=== PATIENT | female | born 1950 | race Caucasian/White ===

== ENCOUNTER → 2017-11-07 09:34 | Outpatient (CLI) | payer MEDICARE, OTHER, SELFPAY ==
--- NOTE | 2017-11-07 10:00 | ECHOD_ITS ---
Reason For Study: MURMUR Procedure This was a 2D Doppler, Color Flow transthoracic echocardiogram. The exam was of adequate technical quality. Exam performed in department. Left Ventricle Normal LV size. Mild concentric left ventricular hypertrophy. Apical false tendon noted. Left ventricular systolic function is normal. The estimated ejection fraction is 55 %. Right Ventricle Normal RV size. Normal systolic function. Atria The left atrium is moderately enlarged. Normal right atrium. No doppler evidence for ASD. Mitral Valve There is no mitral annular calcification. Mild diffuse mitral valve thickening. Mild focal mitral valve calcification of the anterior leaflet. The mitral valve chordae are thickened and/or calcified. Moderate (2+) eccentric mitral valve insufficiency. Tricuspid Valve Normal tricuspid valve. Mild tricuspid valve insufficiency. Right ventricular systolic pressure estimated to be 35 mmHg. Aortic Valve Trisinus/trileaflet aortic valve. Normal aortic valve. Pulmonic Valve The pulmonic valve is not well visualized. Mild (1+) pulmonic valve insufficiency. Great Vessels Normal sized aortic root. Pericardium/Pleural No pericardial effusion. MMode/2D Measurements & Calculations LVIDd: 5.0 cm IVSd: 1.3 cm Ao root diam: 2.8 cm LVIDs: 3.4 cm LVPWd: 1.3 cm LA dimension: 4.9 cm RVDd: 3.1 cm FS: 31.7 % LAV(MOD-bp): 98.5 ml LA A4 area: 24.8 cm2 RA A4 area: 16.9 cm2 LAV(MOD-bp) Indexed: 61.8 ml/m2 LAV(MOD-sp2): 102.8 ml LAV(MOD-sp4): 94.2 ml Doppler Measurements & Calculations MV E max ariel: 149.9 cm/sec Lat Peak E' Ariel: 9.6 cm/sec Med Peak E' Ariel: 6.6 cm/sec MV A max ariel: 105.4 cm/sec E/E' lat: 15.6 E/E' med: 22.8 MV E/A: 1.4 Ao V2 max: 178.4 cm/sec LV V1 max: 87.8 cm/sec MR max ariel: 571.6 cm/sec Ao max P.7 mmHg LV V1 max P.1 mmHg MR max P.7 mmHg Ao V2 mean: 129.6 cm/sec LV V1 mean P.7 mmHg MR mean ariel: 434.9 cm/sec Ao mean P.2 mmHg LV V1 mean: 61.9 cm/sec MR mean P.4 mmHg Ao V2 VTI: 40.1 cm LV V1 VTI: 19.4 cm MR VTI: 197.8 cm PA V2 max: 113.8 cm/sec TR max ariel: 280.5 cm/sec TR max P.6 mmHg Interpretation Summary Left ventricular systolic function is normal. The estimated ejection fraction is 55 %. Mild concentric left ventricular hypertrophy. Apical false tendon noted. The left atrium is moderately enlarged. Mild diffuse mitral valve thickening. Mild focal mitral valve calcification of the anterior leaflet. The mitral valve chordae are thickened and/or calcified. Moderate (2+) eccentric mitral valve insufficiency. Mild tricuspid valve insufficiency. Mild (1+) pulmonic valve insufficiency. Right ventricular systolic pressure estimated to be 35 mmHg. Ordering Physician: Sami Hinojosa Referring Physician: Sandra Lopez Performed By: Greer Sheridan RDCS, RVT
== END ==
PROVIDERS: Family Provider Internal Medicine; PCP Internal Medicine; Visit Provider Internal Medicine Cardiovascular Disease
DX: I51.7 Cardiomegaly (principal); I37.1 Nonrheumatic pulmonary valve insufficiency
CPT/HCPCS: 93306

== ENCOUNTER → 2017-11-15 09:38 | Outpatient (CLI) | payer MEDICARE, OTHER, SELFPAY ==
[2017-11-15 10:52] LABS: Hematocrit 32.2 % (37-47); Hemoglobin 10.8 g/dl (12.0-15.0); Mean Corp Hgb Conc 33.5 g/gl (32-36); Mean Corpuscular Hgb 30.9 pg (27.0-32.0); Mean Corpuscular Volume 92.3 fL (81-99); Mean Platelet Vol. 10.3 fl (6.2-12.0); Platelet Count 228 K/mm3 (150-450); RBC Distribution Width CV 13.4 % (11.6-14.6); Red Blood Count 3.49 M/mm3 (4.2-5.4); White Blood Count 5.8 K/mm3 (4.4-11.0)
[2017-11-15 10:53] LABS: Scan Indicated on CBC? Y/N NO
[2017-11-15 11:20] LABS: Protein, Urine (Random) 388.7 mg/dL (<11.9); Protein:Creat Ratio 6160 mg/g CRE (0-200)
[2017-11-15 11:25] LABS: Albumin, Serum 2.5 g/dL (3.2-5.0); BUN 26 mg/dL (7-18); BUN/Creat Ratio 26.3 RATIO (10-20); Calcium,Total 9.1 mg/dL (8.5-10.1); Chloride 101 mmol/L (98-107); Cholesterol 191 mg/dL (200); Creatinine, Serum 0.99 mg/dL (0.55-1.02); EST Glomerular Filtration Rate 60 mL/min (>60); Est Glom Filt Rate - Afr Amer 72 mL/min (>60); Glucose 90 mg/dL (70-110); High Density Lipoprotein 73 mg/dL; Phosphorus 4.2 mg/dL (2.5-4.9); Potassium 4.9 mmol/L (3.5-5.1); Sodium Level 137 mmol/L (136-145); T4 Free Direct 1.77 ng/dL (0.76-1.46); Thyroid Stim Hormone (TSH) 0.25 uIU/mL (0.358-3.74); Triglycerides 76 mg/dL; Very Low Density Lipoprotein 15 mg/dL (5-40)
== END ==
PROVIDERS: Family Provider Internal Medicine; PCP Internal Medicine
DX: E03.9 Hypothyroidism, unspecified (principal); I10 Essential (primary) hypertension; R80.9 Proteinuria, unspecified; R31.9 Hematuria, unspecified
CPT/HCPCS: 36415; 80061; 80069; 82570; 84156; 84439; 84443; 85027

== ENCOUNTER → 2018-01-15 10:09 | Outpatient (CLI) | payer MEDICARE, OTHER, SELFPAY ==
[2018-01-15 10:20] LABS: Mucous, Urine 0 SEEN /hpf (<or=2+); White Blood Cells 0 SEEN /hpf (0-5)
[2018-01-15 11:03] LABS: Color, Urine Straw (Yellow); Glucose, Dipstick Normal (Normal); Ketone-Dipstick Negative (Negative); Leukocyte Esterase-Dipstick Negative /ul (Negative); Nitrite-Dipstick Negative (Negative); Occult Blood-Urine 150 /ul (Negative); Protein-Dipstick 100 mg/dl (Negative); Urine Bilirubin Dipstick Negative (Negative); Urine Clarity Clear (Clear); Urine Urobilinogen Normal (Normal)
[2018-01-15 11:07] LABS: Hematocrit 31.6 % (37-47); Hemoglobin 10.7 g/dl (12.0-15.0); Mean Corp Hgb Conc 33.9 g/gl (32-36); Mean Corpuscular Hgb 31.5 pg (27.0-32.0); Mean Corpuscular Volume 92.9 fL (81-99); Mean Platelet Vol. 10.5 fl (6.2-12.0); Platelet Count 229 K/mm3 (150-450); RBC Distribution Width CV 13.2 % (11.6-14.6); RBC Distribution Width SD 43.1 fl (35.1-43.9); White Blood Count 4.6 K/mm3 (4.4-11.0)
[2018-01-15 11:13] LABS: Scan Indicated on CBC? Y/N NO
[2018-01-15 11:15] LABS: Protein, Urine (Random) 181.5 mg/dL (<11.9); Protein:Creat Ratio 5386 mg/g CRE (0-200)
[2018-01-15 11:37] LABS: Anion Gap 5 (5-15); BUN 39 mg/dL (7-18); BUN/Creat Ratio 33.6 RATIO (10-20); Calcium,Total 9.2 mg/dL (8.5-10.1); Chloride 103 mmol/L (98-107); Creatinine, Serum 1.16 mg/dL (0.55-1.02); EST Glomerular Filtration Rate 50 mL/min (>60); Est Glom Filt Rate - Afr Amer 60 mL/min (>60); Glucose 121 mg/dL (74-106); Potassium 4.4 mmol/L (3.5-5.1); Sodium Level 137 mmol/L (136-145)
[2018-01-15 11:41] LABS: Bacteria RARE /hpf (None Seen); Red Blood Cells-Urine 5-10 SEEN /hpf (0-5); Squamous Epithelial Cells - UA 0-5 SEEN /hpf (5-10)
== END ==
PROVIDERS: Family Provider Internal Medicine; PCP Internal Medicine
DX: I12.9 Hypertensive chronic kidney disease with stage 1 through stage 4 chronic kidney disease, or unspecified chronic kidney disease (principal); N18.1 Chronic kidney disease, stage 1; R80.9 Proteinuria, unspecified
CPT/HCPCS: 36415; 80048; 81001; 82570; 84156; 85027

== ENCOUNTER → 2018-02-10 08:54 | Outpatient (CLI) | payer MEDICARE, OTHER, SELFPAY ==
[2018-02-10 09:04] VITALS: BP 139/70; PULSE 69; RESP 16; TEMP 36.4; O2SAT 97; BMI 26.8
== END ==
PROVIDERS: Family Provider Internal Medicine; PCP Internal Medicine
DX: I12.9 Hypertensive chronic kidney disease with stage 1 through stage 4 chronic kidney disease, or unspecified chronic kidney disease (principal); N18.3 Chronic kidney disease, stage 3 (moderate); R80.9 Proteinuria, unspecified
CPT/HCPCS: 96365; A4216; J2930

== ENCOUNTER → 2018-02-11 08:58 | Outpatient (CLI) | payer MEDICARE, OTHER, SELFPAY ==
[2018-02-11 09:05] VITALS: BP 118/79; PULSE 83; RESP 18; TEMP 36.2; O2SAT 96; BMI 26.6
== END ==
PROVIDERS: Family Provider Internal Medicine; PCP Internal Medicine
DX: N18.3 Chronic kidney disease, stage 3 (moderate) (principal); I12.9 Hypertensive chronic kidney disease with stage 1 through stage 4 chronic kidney disease, or unspecified chronic kidney disease; R80.9 Proteinuria, unspecified
CPT/HCPCS: 96365; J7050; A4216; J2930

== ENCOUNTER → 2018-02-12 08:37 | Outpatient (CLI) | payer MEDICARE, OTHER, SELFPAY ==
[2018-02-12 08:57] VITALS: BP 143/73; PULSE 71; RESP 16; TEMP 36.9; O2SAT 99; BMI 26.6
== END ==
PROVIDERS: Family Provider Internal Medicine; PCP Internal Medicine
DX: I12.9 Hypertensive chronic kidney disease with stage 1 through stage 4 chronic kidney disease, or unspecified chronic kidney disease (principal); N18.3 Chronic kidney disease, stage 3 (moderate); R80.9 Proteinuria, unspecified
CPT/HCPCS: 96365; J7050; A4216; J2930

== ENCOUNTER → 2018-02-21 08:20 | Outpatient (CLI) | payer MEDICARE, OTHER, SELFPAY ==
[2018-02-21 10:00] LABS: Protein, Urine (Random) 79.2 mg/dL (<11.9); Protein:Creat Ratio 5425 mg/g CRE (0-200)
== END ==
PROVIDERS: Family Provider Internal Medicine; PCP Internal Medicine
DX: N18.1 Chronic kidney disease, stage 1 (principal); I12.9 Hypertensive chronic kidney disease with stage 1 through stage 4 chronic kidney disease, or unspecified chronic kidney disease; R80.9 Proteinuria, unspecified
CPT/HCPCS: 82570; 84156

== ENCOUNTER → 2018-03-07 06:38 | Outpatient (CLI) | payer MEDICARE, OTHER, SELFPAY ==
[2018-03-07 07:19] LABS: Hemoglobin 11.5 g/dl (12.0-15.0); Mean Corp Hgb Conc 34.8 g/gl (32-36); Mean Corpuscular Hgb 31.2 pg (27.0-32.0); Mean Corpuscular Volume 89.4 fL (81-99); Mean Platelet Vol. 9.4 fl (6.2-12.0); Platelet Count 240 K/mm3 (150-450); RBC Distribution Width CV 13.6 % (11.6-14.6); RBC Distribution Width SD 44.7 fl (35.1-43.9); Red Blood Count 3.69 M/mm3 (4.2-5.4)
[2018-03-07 07:21] LABS: Scan Indicated on CBC? Y/N NO
[2018-03-07 07:26] LABS: Protein, Urine (Random) 149.9 mg/dL (<11.9); Protein:Creat Ratio 1912 mg/g CRE (0-200)
[2018-03-07 07:43] LABS: Albumin, Serum 2.6 g/dL (3.2-5.0); BUN 23 mg/dL (7-18); BUN/Creat Ratio 19.2 RATIO (10-20); Calcium,Total 8.8 mg/dL (8.5-10.1); Chloride 95 mmol/L (98-107); EST Glomerular Filtration Rate 48 mL/min (>60); Est Glom Filt Rate - Afr Amer 58 mL/min (>60); Glucose 98 mg/dL (74-106); Phosphorus 2.9 mg/dL (2.5-4.9); Sodium Level 131 mmol/L (136-145)
[2018-03-07 07:49] LABS: Color, Urine Yellow (Yellow); Glucose, Dipstick Normal (Normal); Ketone-Dipstick Negative (Negative); Leukocyte Esterase-Dipstick Negative /ul (Negative); Nitrite-Dipstick Negative (Negative); Occult Blood-Urine 50 /ul (Negative); Protein-Dipstick 100 mg/dl (Negative); Specific Gravity, Urine 1.015 (1.002-1.030); Urine Bilirubin Dipstick Negative (Negative); Urine Clarity Clear (Clear); Urine Urobilinogen Normal (Normal)
== END ==
PROVIDERS: Family Provider Internal Medicine; PCP Internal Medicine
DX: N18.1 Chronic kidney disease, stage 1 (principal); I12.9 Hypertensive chronic kidney disease with stage 1 through stage 4 chronic kidney disease, or unspecified chronic kidney disease; R80.9 Proteinuria, unspecified
CPT/HCPCS: 36415; 80069; 81002; 82570; 84156; 85027

== ENCOUNTER → 2018-05-08 06:54 | Outpatient (CLI) | payer MEDICARE, OTHER, SELFPAY ==
[2018-05-08 08:20] LABS: Anion Gap 4 (5-15); BUN 21 mg/dL (7-18); BUN/Creat Ratio 17.9 RATIO (10-20); Calcium,Total 9.1 mg/dL (8.5-10.1); Chloride 105 mmol/L (98-107); Creatinine, Serum 1.17 mg/dL (0.55-1.02); EST Glomerular Filtration Rate 49 mL/min (>60); Est Glom Filt Rate - Afr Amer 59 mL/min (>60); Glucose 84 mg/dL (74-106); Potassium 3.8 mmol/L (3.5-5.1); Sodium Level 144 mmol/L (136-145)
== END ==
PROVIDERS: Family Provider Internal Medicine; PCP Internal Medicine; Visit Provider Internal Medicine Cardiovascular Disease
DX: I10 Essential (primary) hypertension (principal)
CPT/HCPCS: 36415; 80048

== ENCOUNTER → 2018-05-09 06:37 | Outpatient (CLI) | payer MEDICARE, OTHER, SELFPAY ==
[2018-05-09 07:10] LABS: Color, Urine Straw (Yellow); Glucose, Dipstick Normal (Normal); Ketone-Dipstick Negative (Negative); Leukocyte Esterase-Dipstick Negative /ul (Negative); Nitrite-Dipstick Negative (Negative); Occult Blood-Urine 10 /ul (Negative); Protein-Dipstick 30 mg/dl (Negative); Urine Bilirubin Dipstick Negative (Negative); Urine Clarity Clear (Clear); Urine Urobilinogen Normal (Normal)
[2018-05-09 07:28] LABS: Creatinine, Urine (random) < 13.00 mg/dL (NO RANGE EST.); Protein, Urine (Random) 28.8 mg/dL (<11.9)
[2018-05-09 07:44] LABS: Anion Gap 6 (5-15); BUN 17 mg/dL (7-18); BUN/Creat Ratio 14.4 RATIO (10-20); Calcium,Total 9.1 mg/dL (8.5-10.1); Chloride 104 mmol/L (98-107); Creatinine, Serum 1.18 mg/dL (0.55-1.02); EST Glomerular Filtration Rate 49 mL/min (>60); Est Glom Filt Rate - Afr Amer 59 mL/min (>60); Glucose 124 mg/dL (74-106); Potassium 4.3 mmol/L (3.5-5.1); Sodium Level 143 mmol/L (136-145)
== END ==
PROVIDERS: Family Provider Internal Medicine; PCP Internal Medicine
DX: N05.2 Unspecified nephritic syndrome with diffuse membranous glomerulonephritis (principal); R80.9 Proteinuria, unspecified; I10 Essential (primary) hypertension
CPT/HCPCS: 36415; 80048; 81002; 82570; 84156

== ENCOUNTER → 2018-06-09 08:23 | Outpatient (CLI) | payer MEDICARE, OTHER, SELFPAY ==
[2018-06-09 09:54] LABS: Hematocrit 37.6 % (37-47); Mean Corp Hgb Conc 31.9 g/gl (32-36); Mean Corpuscular Hgb 30.9 pg (27.0-32.0); Mean Corpuscular Volume 96.9 fL (81-99); Mean Platelet Vol. 10.8 fl (6.2-12.0); Platelet Count 197 K/mm3 (150-450); RBC Distribution Width CV 14.7 % (11.6-14.6); RBC Distribution Width SD 51.6 fl (35.1-43.9); Red Blood Count 3.88 M/mm3 (4.2-5.4); White Blood Count 4.5 K/mm3 (4.4-11.0)
[2018-06-09 09:56] LABS: Scan Indicated on CBC? Y/N NO
[2018-06-09 10:09] LABS: Protein, Urine (Random) 132.4 mg/dL (<11.9); Protein:Creat Ratio 1003 mg/g CRE (0-200)
[2018-06-09 10:20] LABS: Albumin, Serum 2.8 g/dL (3.2-5.0); BUN 27 mg/dL (7-18); BUN/Creat Ratio 25.2 RATIO (10-20); Calcium,Total 8.8 mg/dL (8.5-10.1); Chloride 105 mmol/L (98-107); Cholesterol 155 mg/dL (200); Creatinine, Serum 1.07 mg/dL (0.55-1.02); EST Glomerular Filtration Rate 54 mL/min (>60); Est Glom Filt Rate - Afr Amer 66 mL/min (>60); Glucose 116 mg/dL (74-106); High Density Lipoprotein 94 mg/dL; Phosphorus 2.9 mg/dL (2.5-4.9); Potassium 4.5 mmol/L (3.5-5.1); Sodium Level 139 mmol/L (136-145); Triglycerides 36 mg/dL; Very Low Density Lipoprotein 7 mg/dL (5-40)
== END ==
PROVIDERS: Family Provider Internal Medicine; PCP Internal Medicine
DX: N03.9 Chronic nephritic syndrome with unspecified morphologic changes (principal); R80.9 Proteinuria, unspecified; I10 Essential (primary) hypertension
CPT/HCPCS: 36415; 80061; 80069; 82570; 84156; 85027

== ENCOUNTER → 2018-07-17 12:24 | Outpatient (CLI) | payer MEDICARE, OTHER, SELFPAY ==
[2018-07-17 13:01] LABS: Hematocrit 34.7 % (37-47); Hemoglobin 11.6 g/dl (12.0-15.0); Mean Corp Hgb Conc 33.4 g/gl (32-36); Mean Corpuscular Hgb 31.4 pg (27.0-32.0); Mean Platelet Vol. 10.7 fl (6.2-12.0); Platelet Count 227 K/mm3 (150-450); RBC Distribution Width CV 14.3 % (11.6-14.6); RBC Distribution Width SD 46.7 fl (35.1-43.9); Red Blood Count 3.69 M/mm3 (4.2-5.4); White Blood Count 11.1 K/mm3 (4.4-11.0)
[2018-07-17 13:03] LABS: Scan Indicated on CBC? Y/N NO
[2018-07-17 13:16] LABS: Protein, Urine (Random) 189.9 mg/dL (<11.9); Protein:Creat Ratio 829 mg/g CRE (0-200)
[2018-07-17 13:28] LABS: BUN 16 mg/dL (7-18); BUN/Creat Ratio 14.2 RATIO (10-20); Calcium,Total 8.6 mg/dL (8.5-10.1); Chloride 103 mmol/L (98-107); Creatinine, Serum 1.13 mg/dL (0.55-1.02); EST Glomerular Filtration Rate 51 mL/min (>60); Est Glom Filt Rate - Afr Amer 62 mL/min (>60); Glucose 88 mg/dL (74-106); Phosphorus 2.3 mg/dL (2.5-4.9); Potassium 4.2 mmol/L (3.5-5.1); Sodium Level 138 mmol/L (136-145)
== END ==
PROVIDERS: Family Provider Internal Medicine; PCP Internal Medicine
DX: I12.9 Hypertensive chronic kidney disease with stage 1 through stage 4 chronic kidney disease, or unspecified chronic kidney disease (principal); N18.2 Chronic kidney disease, stage 2 (mild); N05.2 Unspecified nephritic syndrome with diffuse membranous glomerulonephritis
CPT/HCPCS: 36415; 80069; 82570; 84156; 85027

== ENCOUNTER 2018-07-17 15:52 | Inpatient (IN) | payer MEDICARE, OTHER, SELFPAY ==
[2018-07-17] VITALS (20 sets, daily range): BP systolic 106–151; BP diastolic 62–108; PULSE 81–144; RESP 15–22; TEMP 36.6–36.7; O2SAT 91–98; BMI 27.6; BMI 22.8
--- NOTE | 2018-07-17 16:04 | EKG12_ITS ---
Test Reason : Blood Pressure : / mmHG Vent. Rate : 128 BPM Atrial Rate : 138 BPM P-R Int : 192 ms QRS Dur : 092 ms QT Int : 266 ms P-R-T Axes : 051 028 023 degrees QTc Int : 388 ms Sinus tachycardia Septal infarct , age undetermined Abnormal ECG Confirmed by VY HAMMOND, SAUNDRA ([id number]), editorial intern MARILYN FULLER ([id number]) on 07/21/2018 2:24:00 PM Referred By: DELROY Confirmed By:SAUNDRA MCCLELLAN MD
--- NOTE | 2018-07-17 16:05 | RAD_ITS ---
STUDY: X-RAY CHEST REASON FOR EXAM: Female, 67 years old. Atrial fibrillation with RVR. TECHNIQUE: Single AP portable view of the chest. COMPARISON: None. FINDINGS: The lungs are clear and expanded. There is no demonstrated pleural abnormality. Mild cardiomegaly. Normal mediastinum and tali. Normal visualized pulmonary arteries. Normal visualized aortic arch and descending thoracic aorta. Normal visualized thoracic spine. Normal visualized ribs, clavicles, and shoulders. There is no demonstrated abnormality of the visualized soft tissue structures of the upper abdomen. RAD/Chest 1 View (Portable) IMPRESSION: Mild cardiomegaly without other acute pulmonary findings. Negative for major consolidation, focal atelectasis or a substantial pleural effusion. Electronically Signed: Fay Valencia MD at 16:20 EDT , Service support ,
--- NOTE | 2018-07-17 16:08 | ED.VISSUMM ---
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 Patient presented to their office today and was found to be in new onset atrial fibrillation/flutter with rapid ventricular response. Patient states that she has a history of rheumatic mitral valve regurgitation. She states that over the past couple weeks she has felt fatigued but was blaming it on the weather. She has been taking her blood pressure and heart rate in over the past several days heart rate monitor has said that her heart has been beating rather fast and she has been feeling that. Noted history of chronic kidney disease hypertension high cholesterol. She had outpatient labs of the CBC and a BMP drawn today ordered through nephrology. Creatinine 1.13. Hemoglobin 11. 6. White count 11.1. She denies any black or bloody stools or any easy bruising or bleeding. Physical Examination: Afebrile noted heart rate 144 blood pressure 151/108 Gen: Well-nourished well-developed Head: Normocephalic atraumatic Eyes: Perrl EOMI ENT: TMs clear no rhinorrhea moist mucous membranes Neck: Supple no lymphadenopathy no JVD nontender CVS: Irregularly irregular tachycardic heart rhythm Respiratory: No distress clear to auscultation bilaterally chest nontender Abdomen: Soft nontender nondistended normal bowel sounds no masses Back: Nontender Extremity: Nontender bilateral symmetrical edema Skin: Normal color no rash Neuro: alert orientated ?3 CN II-XII intact normal strength sensation reflexes gait cerebellar Psych: Normal affect normal mood Test Results: EGD demonstrates atrial fibrillation/flutter with a rate of 128 Emergency Department Course and Treatment: Patient received metoprolol and was placed on a heparin drip. She also received aspirin. Plan is admission into the hospital Impression: 1. New onset atrial fibrillation with rapid ventricular response This note was generated with [employer] dictation software. It may contain incorrect words, spelling, and punctuation that were not noted in review of the chart prior to signing ED Disposition - Plan for ED Patient: Chief Complaint: Palpitations Referrals: Sandra Lopez MD [Primary Care Provider] -
--- NOTE | 2018-07-17 16:11 | ED.DCSUM_ITS ---
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 Patient presented to their office today and was found to be in new onset atrial fibrillation/flutter with rapid ventricular response. Patient states that she has a history of rheumatic mitral valve regurgitation. She states that over the past couple weeks she has felt fatigued but was blaming it on the weather. She has been taking her blood pressure and heart rate in over the past several days heart rate monitor has said that her heart has been beating rather fast and she has been feeling that. Noted history of chronic kidney disease hypertension high cholesterol. She had outpatient labs of the CBC and a BMP drawn today ordered through nephrology. Creatinine 1.13. Hemoglobin 11. 6. White count 11.1. She denies any black or bloody stools or any easy bruising or bleeding. Physical Examination: Afebrile noted heart rate 144 blood pressure 151/108 Gen: Well-nourished well-developed Head: Normocephalic atraumatic Eyes: Perrl EOMI ENT: TMs clear no rhinorrhea moist mucous membranes Neck: Supple no lymphadenopathy no JVD nontender CVS: Irregularly irregular tachycardic heart rhythm Respiratory: No distress clear to auscultation bilaterally chest nontender Abdomen: Soft nontender nondistended normal bowel sounds no masses Back: Nontender Extremity: Nontender bilateral symmetrical edema Skin: Normal color no rash Neuro: alert orientated ?3 CN II-XII intact normal strength sensation reflexes gait cerebellar Psych: Normal affect normal mood Test Results: EGD demonstrates atrial fibrillation/flutter with a rate of 128 Emergency Department Course and Treatment: Patient received metoprolol and was placed on a heparin drip. She also received aspirin. Plan is admission into the hospital Impression: 1. New onset atrial fibrillation with rapid ventricular response This note was generated with [employer] dictation software. It may contain incorrect words, spelling, and punctuation that were not noted in review of the chart prior to signing ED Disposition - Plan for ED Patient: Chief Complaint: Palpitations Referrals: Sandra Lopez MD [Primary Care Provider] -
[2018-07-17] MEDS: Aspirin 325 MG Tablet PO (16:14)
[2018-07-17] MEDS: Metoprolol Tartrate 5 MG/5 ML Vial IV ×3 (16:14→16:28)
[2018-07-17 16:29] LABS: International Normalized Ratio 1.1; Prothrombin Time (Protime)PT. 14.4 SECONDS (11.7-14.9)
[2018-07-17 16:30] LABS: Partial Thromboplast Time 28.9 Seconds (24.1-36.2)
[2018-07-17] MEDS: Heparin Injection (Vial) 5,000 UNIT/ML VIAL 4500 UNIT IV (16:43)
[2018-07-17 16:47] LABS: AST(SGOT) 44 U/L (15-37); Alanine Aminotransfer ALT/SGPT 63 U/L (13-56); Albumin, Serum 2.9 g/dL (3.2-5.0); Alkaline Phosphatase 74 U/L (45-117); Bilirubin, Direct 0.21 mg/dL (0.00-0.30); Magnesium 1.9 mg/dL (1.6-2.6); Protein, Total 5.9 g/dL (6.4-8.2); Thyroid Stim Hormone (TSH) 5.57 uIU/mL (0.358-3.74)
[2018-07-17] MEDS: HEPARIN/D5w 25,000 UNITS 25,000 UNITS/250 ML IV.SOLN. 10 UNITS IV (16:47)
--- NOTE | 2018-07-17 17:16 | PCM.HP.STD ---
<Silvio Slater - Last Filed: 07/17/18 17:16> Problem List (1) Atrial fibrillation Status: Acute (2) Depression Status: Chronic (3) Proteinuria Status: Chronic (4) Hypothyroidism Status: Chronic (5) Hyperlipidemia Status: Chronic (6) Hypertension Status: Chronic History of Present Illness Date of Admission: 07/17/18 Chief Complaint: palpitations The patient is a 67 year old F with a history of hypertension, hypothyroidism, nonspecified chronic kidney disease marked by proteinuria, depression, who presents to the emergency room with chief complaint of heart palpitations. Patient started that this started about 10 days ago. She noticed that her heart felt like it was racing and fluttering, she hooked herself up to her blood pressure cuff which read her pulse as being tachycardic. This occurred off and on for the next several days. She had also started noticing that she was becoming more tired, lightheaded and dizzy, short of breath with exertion. As it has been 10 days and there has been no relief she felt that she should come to the ER. She currently denies chest pain, pressure, tightness. Her EKG does show atrial fibrillation with tachycardia. She has no history of atrial fibrillation. She received 3 doses of Lopressor which temporarily lowered her heart rate although soon after it would return to the 120s-130 range. Denies recent illness or infection. [] Past Medical History Past Medical History (Chronic Problems): Chronic Problems (Last Reviewed 07/17/18 @ 15:02 by Taylor Green) Depression (Chronic) Proteinuria (Chronic) Hypothyroidism (Chronic) Rheumatic mitral regurgitation (Chronic) Hyperlipidemia (Chronic) Hypertension (Chronic) Medical History: Medical History (Last Reviewed 07/17/18 @ 15:02 by Taylor Green) SOB (shortness of breath) (Acute) R06.02 Edema (Acute) R60.9 Rheumatic mitral regurgitation (Chronic) I05.1 Hyperlipidemia (Chronic) E78.5 Hypertension (Chronic) I10 Hypothyroidism E03.9 CKD (chronic kidney disease) N18.9 Allergies Penicillins [PCN] Allergy (Verified 07/17/18 15:53) Unknown lisinopril Adverse Reaction (Intermediate, Verified 07/17/18 15:53) cough Home Medications: Ambulatory Orders Medication Instructions Recorded Atorvastatin Calcium [Lipitor] 40 mg PO DAILY 08/16/17 Fluoxetine [Prozac] 20 mg PO DAILY 08/16/17 Losartan Potassium [Cozaar] 50 mg PO BID 08/16/17 acetaminophen 500 mg capsule 500 mg PO Q6H PRN 10/17/17 atenolol 50 mg tablet 25 mg PO DAILY 10/17/17 Ascorbic Acid [Vitamin C] 500 mg PO DAILY@0800 02/10/18 calcium carbonate 600 mg (1,500 1 tab PO QDAY 04/24/18 mg)-vitamin D3 200 unit tablet levothyroxine 125 mcg tablet 125 mcg PO QDAY 04/24/18 Amlodipine [Norvasc] 2.5 mg PO QHS 07/17/18 Amlodipine [Norvasc] 5 mg PO DAILY 07/17/18 Bupropion HCl [Bupropion HCl Sr] 150 mg PO DAILY 07/17/18 H.P. Acthar Gel 80 units SQ UD 07/17/18 Spironolactone 25 mg PO DAILY 07/17/18 Surgical History: Surgical History (Last Reviewed 07/17/18 @ 15:02 by Taylor Green) History of carpal tunnel surgery Z92.89 History of dilatation and curettage Z98.890 History of hip replacement, total Z96.649 Rt Hip History of tubal ligation Z98.51 Surgical History: total hip arthroplasty, - - tubal Psychiatric History: Depression RIB SAWYER History: No pertinent RIB SAWYER history Lives: Spouse/ Significant Other Smoking Status: Never smoker Tobacco Use: Non-smoker Alcohol: None Drugs: None - *Family History Maternal Family History: Family History (Last Reviewed 07/17/18 @ 15:02 by Taylor Green) Father Heart disease History Items: Dementia, - - thyroid Paternal Family History: Family History (Last Reviewed 07/17/18 @ 15:02 by Taylor Green) Father Heart disease History Items: - - thyroid Sibling Family History: Family History (Last Reviewed 07/17/18 @ 15:02 by Taylor Green) Father Heart disease History Items: - - thyroid Review of Systems Constitutional: Reports: Weakness, Fatigue. Denies: Chills, Fever, Weight Change HEENT: Denies: Head Aches, Sinus Congestion, Sinus Drainage Cardiovascular: Reports: Light Headedness, Palpitations. Denies: Chest Pain, Chest Pressure, Chest Tightness, Edema, Heaviness, Paroxysmal Noc. Dyspnea, Syncope Respiratory: Reports: Shortness of breath upon exertion. Denies: Cough, Shortness of breath at rest, Sputum production Gastrointestinal: Denies: Abdominal Pain, Nausea, Vomiting Genitourinary: Denies: Dysuria Musculoskeletal: Denies: Joint Pain, Joint Tenderness Skin: Denies: Rash, Wounds Neurological: Denies: Numbness, Tingling, Focal weakness Psychiatric: Denies: Anxiety, Depression, Homicidal Ideations, Suicidal Ideations Hematologic/ Lymphatic: Denies: Easy Bruising, Easy Bleeding VTE Information - Inpt Only VTE Present on Admission: No VTE Mechan Device Prophylaxis: None VTE Pharm Prophylaxis ordered?: Yes Patient Problems: Active and Suspected Problems (Last Reviewed 07/17/18 @ 15:02 by Taylor Green) Atrial fibrillation (Acute) - Physical Exam General: Alert, Oriented x3, Cooperative HEENT: Atraumatic, PERRLA, EOMI, Normocephalic Neck: Supple, No JVD, Negative Carotid Bruits Lungs: Clear to auscultation, Normal air movement Cardiovascular: No murmurs, Irregular Rate Abdomen: Bowel Sounds Present, Soft, Non Tender Extremities: No edema, Capillary Refill Less than 3 Seconds Skin: No rashes, No breakdown Musculoskeletal: No Tenderness to Palpation of Joints or Extremities Neurological: Cranial nerves II-XII grossly intact Psych/Mental Status: Normal Affect, Appropriate, Alert and oriented to time, place, person, mood and affect Vital Signs Temp Pulse Resp BP Pulse Ox 97.9 F 109 H 16 124/83 H 98 07/17/18 15:53 07/17/18 16:53 07/17/18 16:53 07/17/18 16:53 07/17/18 16:53 Oxygen Delivery Method Room Air Weight: 141 lb 8.588 oz Body Mass Index (BMI) 27.6 Laboratory Tests Past 24 Hrs 07/17/18 07/17/18 16:05 16:05 PT 14.4 INR 1.1 APTT 28.9 Magnesium 1.9 Total Bilirubin 0.70 Direct Bilirubin 0.21 AST 44 H ALT 63 H Alkaline Phosphatase 74 Troponin I < 0.015 Total Protein 5.9 L Albumin 2.9 L Globulin 3.0 TSH 5.57 H Assessment/Plan All Active Problems (Last Reviewed 07/17/18 @ 15:02 by Taylor Green) Atrial fibrillation (Acute) SOB (shortness of breath) (Acute) Edema (Acute) 1. Afib with rvr refractory to IV beta roxann - start cardizem drip. Heparin drip. Cardiology consult. Echo in AM. No hx. Mag normal. Trop neg. TSH high, check t4. CXR negative, no edema. 2. CKD unspecified etiology with proteinuria - Pt of Dr. Mena in [place], on acthar for proteinuria. 3. Hypothyroid - as above, tsh high, check t4 4. HTN - stable currently 5. Anx/Dep - wellbutrin/prozac. 6. Chronic LE edema - states she was worked up for heart failure in past but does not have it, takes aldactone for chronic LE edema. DVT ppx: heparin This patient was seen by Silvio Slater PA-C under the supervision of Doctor Sharri. <Fermin Harrell - Last Filed: 07/17/18 17:36> Problem List (1) Atrial fibrillation Status: Acute Qualifiers: Atrial fibrillation type: persistent Qualified Code(s): I48.1 - Persistent atrial fibrillation History of Present Illness The patient is a 67 year old F presents with 10-day history of palpitations. Patient been noted to be tachycardic and I finally saw cardiology and was noted to have a heart rate in the 140s. Sent to the emergency room and was diagnosed atrial fibrillation. Patient has never had atrial fibrillation before. Patient received 5 mg of IV metoprolol but was still tachycardic into the 120s and 130s and then received a diltiazem bolus and then a drip. Cardiology was notified and ended a heparin drip and the patient did receive a bolus. [] Past Medical History Medical History: Medical History (Last Reviewed 07/17/18 @ 17:32 by Fermin Harrell DO) SOB (shortness of breath) (Acute) R06.02 Edema (Acute) R60.9 Rheumatic mitral regurgitation (Chronic) I05.1 Hyperlipidemia (Chronic) E78.5 Hypertension (Chronic) I10 Hypothyroidism E03.9 CKD (chronic kidney disease) N18.9 Allergies Penicillins [PCN] Allergy (Verified 07/17/18 15:53) Unknown lisinopril Adverse Reaction (Intermediate, Verified 07/17/18 15:53) cough Surgical History: Surgical History (Last Reviewed 07/17/18 @ 17:32 by Fermin Harrell DO) History of carpal tunnel surgery Z92.89 History of dilatation and curettage Z98.890 History of hip replacement, total Z96.649 Rt Hip History of tubal ligation Z98.51 Psychiatric History: Depression RIB SAWYER History: No pertinent RIB SAWYER history Lives: Spouse/ Significant Other Smoking Status: Never smoker Tobacco Use: Non-smoker Alcohol: None Drugs: None - *Family History Maternal Family History: Family History (Last Reviewed 07/17/18 @ 17:32 by Fermin Harrell DO) Father Heart disease Paternal Family History: Family History (Last Reviewed 07/17/18 @ 17:32 by Fermin Harrell DO) Father Heart disease Sibling Family History: Family History (Last Reviewed 07/17/18 @ 17:32 by Fermin Harrell DO) Father Heart disease Review of Systems Constitutional: Reports: Weakness, Fatigue. Denies: Chills, Fever, Weight Change Eyes: Denies: Blurred vision, Double vision HEENT: Denies: Head Aches, Sinus Congestion, Sinus Drainage Cardiovascular: Reports: Light Headedness, Palpitations. Denies: Chest Pain, Chest Pressure, Chest Tightness, Edema, Heaviness, Paroxysmal Noc. Dyspnea, Syncope Respiratory: Reports: Shortness of breath upon exertion. Denies: Cough, Shortness of breath at rest, Sputum production Gastrointestinal: Denies: Abdominal Pain, Nausea, Vomiting Genitourinary: Denies: Dysuria Musculoskeletal: Denies: Joint Pain, Joint Tenderness Skin: Denies: Rash, Wounds Neurological: Denies: Focal weakness, Numbness, Tingling Psychiatric: Denies: Anxiety, Depression, Homicidal Ideations, Suicidal Ideations Hematologic/ Lymphatic: Denies: Easy Bruising, Easy Bleeding Comment: All review of systems are negative except as mentioned in the history of present illness and the other review of systems. VTE Information - Inpt Only VTE Present on Admission: No VTE Mechan Device Prophylaxis: None VTE Pharm Prophylaxis ordered?: Yes - Physical Exam General: Alert, Oriented x3, Cooperative, Well developed, Well nourished HEENT: Atraumatic, Normocephalic Oral: Moist Mucosa, No Gingival or Mucosal Lesions/ Ulcerations Neck: No Nodes, Thyroid Normal Size and Texture Lungs: Clear to auscultation, Normal air movement, No rhonchi, No wheeze Cardiovascular: No murmurs, Irregular Rate, Tachycardic Abdomen: Bowel Sounds Present, Soft, Non Tender, Non-Distended Extremities: No edema, Capillary Refill Less than 3 Seconds Skin: No rashes, No breakdown Musculoskeletal: No Tenderness to Palpation of Joints or Extremities, No Muscle Wasting Neurological: Muscle tone normal, Sensory exam intact to light touch and pain, Coordination normal Psych/Mental Status: Normal Affect, Appropriate Vital Signs Temp Pulse Resp BP Pulse Ox 36.6 C 123 H 20 H 121/102 H 91 07/17/18 15:53 07/17/18 17:13 07/17/18 17:13 07/17/18 17:13 07/17/18 17:13 Oxygen Delivery Method Room Air Weight: 64.2 kg Body Mass Index (BMI) 27.6 Laboratory Tests Past 24 Hrs 07/17/18 07/17/18 16:05 16:05 PT 14.4 INR 1.1 APTT 28.9 Magnesium 1.9 Total Bilirubin 0.70 Direct Bilirubin 0.21 AST 44 H ALT 63 H Alkaline Phosphatase 74 Troponin I < 0.015 Total Protein 5.9 L Albumin 2.9 L Globulin 3.0 TSH 5.57 H EKG personally reviewed and showed atrial for ablation with RVR. No other acute changes noted. Clinical Impression(s) from Imaging Studies Chest X-Ray 07/17/18 16:05 IMPRESSION: Mild cardiomegaly without other acute pulmonary findings. Negative for major consolidation, focal atelectasis or a substantial pleural effusion. Electronically Signed: Fay Valencia MD at 16:20 EDT , Service support , Assessment/Plan Patient seen and examined independently. Data reviewed. I agree with the above note by the physician patient care nursing assistant. 1. Atrial fibrillation with RVR Minimal response with IV metoprolol Patient started on diltiazem bolus and drip Started on heparin drip Cardiology consult Echocardiogram 2. Hypothyroidism TSH elevated Check free T4 and T3 3. Chronic kidney disease, stage III Creatinine is 1.13 Patient has noted proteinuria Follow-up with her college hire as outpatient Code Visit Inpatient E&M: 79801 Init Hosp L3
--- NOTE | 2018-07-17 17:20 | HP.PCM_ITS ---
<Silvio Slater - Last Filed: 07/17/18 17:16> Problem List (1) Atrial fibrillation Status: Acute (2) Depression Status: Chronic (3) Proteinuria Status: Chronic (4) Hypothyroidism Status: Chronic (5) Hyperlipidemia Status: Chronic (6) Hypertension Status: Chronic History of Present Illness Date of Admission: 07/17/18 Chief Complaint: palpitations The patient is a 67 year old F with a history of hypertension, hypothyroidism, nonspecified chronic kidney disease marked by proteinuria, depression, who presents to the emergency room with chief complaint of heart palpitations. Patient started that this started about 10 days ago. She noticed that her heart felt like it was racing and fluttering, she hooked herself up to her blood pressure cuff which read her pulse as being tachycardic. This occurred off and on for the next several days. She had also started noticing that she was becoming more tired, lightheaded and dizzy, short of breath with exertion. As it has been 10 days and there has been no relief she felt that she should come to the ER. She currently denies chest pain, pressure, tightness. Her EKG does show atrial fibrillation with tachycardia. She has no history of atrial fibrillation. She received 3 doses of Lopressor which temporarily lowered her heart rate although soon after it would return to the 120s-130 range. Denies recent illness or infection. [] Past Medical History Past Medical History (Chronic Problems): Chronic Problems (Last Reviewed 07/17/18 @ 15:02 by Taylor Green) Depression (Chronic) Proteinuria (Chronic) Hypothyroidism (Chronic) Rheumatic mitral regurgitation (Chronic) Hyperlipidemia (Chronic) Hypertension (Chronic) Medical History: Medical History (Last Reviewed 07/17/18 @ 15:02 by Taylor Green) SOB (shortness of breath) (Acute) R06.02 Edema (Acute) R60.9 Rheumatic mitral regurgitation (Chronic) I05.1 Hyperlipidemia (Chronic) E78.5 Hypertension (Chronic) I10 Hypothyroidism E03.9 CKD (chronic kidney disease) N18.9 Allergies Penicillins [PCN] Allergy (Verified 07/17/18 15:53) Unknown lisinopril Adverse Reaction (Intermediate, Verified 07/17/18 15:53) cough Home Medications: Ambulatory Orders Medication Instructions Recorded Atorvastatin Calcium [Lipitor] 40 mg PO DAILY 08/16/17 Fluoxetine [Prozac] 20 mg PO DAILY 08/16/17 Losartan Potassium [Cozaar] 50 mg PO BID 08/16/17 acetaminophen 500 mg capsule 500 mg PO Q6H PRN 10/17/17 atenolol 50 mg tablet 25 mg PO DAILY 10/17/17 Ascorbic Acid [Vitamin C] 500 mg PO DAILY@0800 02/10/18 calcium carbonate 600 mg (1,500 1 tab PO QDAY 04/24/18 mg)-vitamin D3 200 unit tablet levothyroxine 125 mcg tablet 125 mcg PO QDAY 04/24/18 Amlodipine [Norvasc] 2.5 mg PO QHS 07/17/18 Amlodipine [Norvasc] 5 mg PO DAILY 07/17/18 Bupropion HCl [Bupropion HCl Sr] 150 mg PO DAILY 07/17/18 H.P. 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 Lives: Spouse/ Significant Other Smoking Status: Never smoker Tobacco Use: Non-smoker Alcohol: None Drugs: None - *Family History Maternal Family History: Family History (Last Reviewed 07/17/18 @ 15:02 by Taylor Green) Father Heart disease History Items: Dementia, - - thyroid Paternal Family History: Family History (Last Reviewed 07/17/18 @ 15:02 by Taylor Green) Father Heart disease History Items: - - thyroid Sibling Family History: Family History (Last Reviewed 07/17/18 @ 15:02 by Taylor Green) Father Heart disease History Items: - - thyroid Review of Systems Constitutional: Reports: Weakness, Fatigue. Denies: Chills, Fever, Weight Change HEENT: Denies: Head Aches, Sinus Congestion, Sinus Drainage Cardiovascular: Reports: Light Headedness, Palpitations. Denies: Chest Pain, Chest Pressure, Chest Tightness, Edema, Heaviness, Paroxysmal Noc. Dyspnea, Syncope Respiratory: Reports: Shortness of breath upon exertion. Denies: Cough, Shortness of breath at rest, Sputum production Gastrointestinal: Denies: Abdominal Pain, Nausea, Vomiting Genitourinary: Denies: Dysuria Musculoskeletal: Denies: Joint Pain, Joint Tenderness Skin: Denies: Rash, Wounds Neurological: Denies: Numbness, Tingling, Focal weakness Psychiatric: Denies: Anxiety, Depression, Homicidal Ideations, Suicidal Ideations Hematologic/ Lymphatic: Denies: Easy Bruising, Easy Bleeding VTE Information - Inpt Only VTE Present on Admission: No VTE Mechan Device Prophylaxis: None VTE Pharm Prophylaxis ordered?: Yes Patient Problems: Active and Suspected Problems (Last Reviewed 07/17/18 @ 15:02 by Taylor nova) Atrial fibrillation (Acute) - Physical Exam General: Alert, Oriented x3, Cooperative HEENT: Atraumatic, PERRLA, EOMI, Normocephalic Neck: Supple, No JVD, Negative Carotid Bruits Lungs: Clear to auscultation, Normal air movement Cardiovascular: No murmurs, Irregular Rate Abdomen: Bowel Sounds Present, Soft, Non Tender Extremities: No edema, Capillary Refill Less than 3 Seconds Skin: No rashes, No breakdown Musculoskeletal: No Tenderness to Palpation of Joints or Extremities Neurological: Cranial nerves II-XII grossly intact Psych/Mental Status: Normal Affect, Appropriate, Alert and oriented to time, place, person, mood and affect Vital Signs Temp Pulse Resp BP Pulse Ox 97.9 F 109 H 16 124/83 H 98 07/17/18 15:53 07/17/18 16:53 07/17/18 16:53 07/17/18 16:53 07/17/18 16:53 Oxygen Delivery Method Room Air Weight: 141 lb 8.588 oz Body Mass Index (BMI) 27.6 Laboratory Tests Past 24 Hrs 07/17/18 07/17/18 16:05 16:05 PT 14.4 INR 1.1 APTT 28.9 Magnesium 1.9 Total Bilirubin 0.70 Direct Bilirubin 0.21 AST 44 H ALT 63 H Alkaline Phosphatase 74 Troponin I < 0.015 Total Protein 5.9 L Albumin 2.9 L Globulin 3.0 TSH 5.57 H Assessment/Plan All Active Problems (Last Reviewed 07/17/18 @ 15:02 by Taylor Green) Atrial fibrillation (Acute) SOB (shortness of breath) (Acute) Edema (Acute) 1. Afib with rvr refractory to IV beta roxann - start cardizem drip. Heparin drip. Cardiology consult. Echo in AM. No hx. Mag normal. Trop neg. TSH high, check t4. CXR negative, no edema. 2. CKD unspecified etiology with proteinuria - Pt of Dr. Mena in [place], on acthar for proteinuria. 3. Hypothyroid - as above, tsh high, check t4 4. HTN - stable currently 5. Anx/Dep - wellbutrin/prozac. 6. Chronic LE edema - states she was worked up for heart failure in past but does not have it, takes aldactone for chronic LE edema. DVT ppx: heparin This patient was seen by Silvio Slater PA-C under the supervision of Doctor Sharri. <Fermin Harrell - Last Filed: 07/17/18 17:36> Problem List (1) Atrial fibrillation Status: Acute Qualifiers: Atrial fibrillation type: persistent Qualified Code(s): I48.1 - Persistent atrial fibrillation History of Present Illness The patient is a 67 year old F presents with 10-day history of palpitations. Patient been noted to be tachycardic and I finally saw cardiology and was noted to have a heart rate in the 140s. Sent to the emergency room and was diagnosed atrial fibrillation. Patient has never had atrial fibrillation before. Patient received 5 mg of IV metoprolol but was still tachycardic into the 120s and 130s and then received a diltiazem bolus and then a drip. Cardiology was notified and ended a heparin drip and the patient did receive a bolus. [] Past Medical History Medical History: Medical History (Last Reviewed 07/17/18 @ 17:32 by Fermin Harrell DO) SOB (shortness of breath) (Acute) R06.02 Edema (Acute) R60.9 Rheumatic mitral regurgitation (Chronic) I05.1 Hyperlipidemia (Chronic) E78.5 Hypertension (Chronic) I10 Hypothyroidism E03.9 CKD (chronic kidney disease) N18.9 Allergies Penicillins [PCN] Allergy (Verified 07/17/18 15:53) Unknown lisinopril Adverse Reaction (Intermediate, Verified 07/17/18 15:53) cough Surgical History: Surgical History (Last Reviewed 07/17/18 @ 17:32 by Fermin Harrell DO) History of carpal tunnel surgery Z92.89 History of dilatation and curettage Z98.890 History of hip replacement, total Z96.649 Rt Hip History of tubal ligation Z98.51 Psychiatric History: Depression 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 SUPERINTENDENT History: No pertinent FIELD SUPERINTENDENT history Lives: Spouse/ Significant Other Smoking Status: Never smoker Tobacco Use: Non-smoker Alcohol: None Drugs: None - *Family History Maternal Family History: Family History (Last Reviewed 07/17/18 @ 17:32 by Fermin Harrell DO) Father Heart disease Paternal Family History: Family History (Last Reviewed 07/17/18 @ 17:32 by Fermin Harrell DO) Father Heart disease Sibling Family History: Family History (Last Reviewed 07/17/18 @ 17:32 by Fermin Harrell DO) Father Heart disease Review of Systems Constitutional: Reports: Weakness, Fatigue. Denies: Chills, Fever, Weight Change Eyes: Denies: Blurred vision, Double vision HEENT: Denies: Head Aches, Sinus Congestion, Sinus Drainage Cardiovascular: Reports: Light Headedness, Palpitations. Denies: Chest Pain, Chest Pressure, Chest Tightness, Edema, Heaviness, Paroxysmal Noc. Dyspnea, Syncope Respiratory: Reports: Shortness of breath upon exertion. Denies: Cough, Shortness of breath at rest, Sputum production Gastrointestinal: Denies: Abdominal Pain, Nausea, Vomiting Genitourinary: Denies: Dysuria Musculoskeletal: Denies: Joint Pain, Joint Tenderness Skin: Denies: Rash, Wounds Neurological: Denies: Focal weakness, Numbness, Tingling Psychiatric: Denies: Anxiety, Depression, Homicidal Ideations, Suicidal Ideations Hematologic/ Lymphatic: Denies: Easy Bruising, Easy Bleeding Comment: All review of systems are negative except as mentioned in the history of present illness and the other review of systems. VTE Information - Inpt Only VTE Present on Admission: No VTE Mechan Device Prophylaxis: None VTE Pharm Prophylaxis ordered?: Yes - Physical Exam General: Alert, Oriented x3, Cooperative, Well developed, Well nourished HEENT: Atraumatic, Normocephalic Oral: Moist Mucosa, No Gingival or Mucosal Lesions/ Ulcerations Neck: No Nodes, Thyroid Normal Size and Texture Lungs: Clear to auscultation, Normal air movement, No rhonchi, No wheeze Cardiovascular: No murmurs, Irregular Rate, Tachycardic Abdomen: Bowel Sounds Present, Soft, Non Tender, Non-Distended Extremities: No edema, Capillary Refill Less than 3 Seconds Skin: No rashes, No breakdown Musculoskeletal: No Tenderness to Palpation of Joints or Extremities, No Muscle Wasting Neurological: Muscle tone normal, Sensory exam intact to light touch and pain, Coordination normal Psych/Mental Status: Normal Affect, Appropriate Vital Signs Temp Pulse Resp BP Pulse Ox 36.6 C 123 H 20 H 121/102 H 91 07/17/18 15:53 07/17/18 17:13 07/17/18 17:13 07/17/18 17:13 07/17/18 17:13 Oxygen Delivery Method Room Air Weight: 64.2 kg Body Mass Index (BMI) 27.6 Laboratory Tests Past 24 Hrs 07/17/18 07/17/18 16:05 16:05 PT 14.4 INR 1.1 APTT 28.9 Magnesium 1.9 Total Bilirubin 0.70 Direct Bilirubin 0.21 AST 44 H ALT 63 H Alkaline Phosphatase 74 Troponin I < 0.015 Total Protein 5.9 L Albumin 2.9 L Globulin 3.0 TSH 5.57 H EKG personally reviewed and showed atrial for ablation with RVR. No other acute changes noted. Clinical Impression(s) from Imaging Studies Chest X-Ray 07/17/18 16:05 IMPRESSION: Mild cardiomegaly without other acute pulmonary findings. Negative for major consolidation, focal atelectasis or a substantial pleural effusion. Electronically Signed: Fay Valencia MD at 16:20 EDT , Service support , Assessment/Plan Patient seen and examined independently. Data reviewed. I agree with the above note by the physician email marketing assistant. 1. Atrial fibrillation with RVR * Minimal response with IV metoprolol * Patient started on diltiazem bolus and drip * Started on heparin drip * Cardiology consult * Echocardiogram 2. Hypothyroidism * TSH elevated * Check free T4 and T3 3. 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
[2018-07-17] MEDS: dilTIAZem 25 MG/5 ML Vial 10 MG IV BOLUS (17:39)
--- NOTE | 2018-07-17 18:48 | ECHOD_ITS ---
Reason For Study: AFIB Procedure This was a 2D Doppler, Color Flow transthoracic echocardiogram. The exam was of adequate technical quality. Exam performed portable in patient room. Left Ventricle Normal LV size. Mild concentric left ventricular hypertrophy. Apical false tendon noted. Left ventricular systolic function is normal. The estimated ejection fraction is 60 %. There is evidence of diastolic dysfunction. No regional wall motion abnormalities noted. Right Ventricle Normal RV size. Normal systolic function. Atria The left atrium is severely enlarged. The right atrium is mildly enlarged. No doppler evidence for ASD. Mitral Valve There is no mitral annular calcification. Mild diffuse mitral valve thickening. Mild focal mitral valve calcification of the anterior leaflet. Moderately severe (3+) eccentric mitral valve insufficiency. Tricuspid Valve Normal tricuspid valve. Moderate (2+) tricuspid valve insufficiency. Right ventricular systolic pressure estimated to be 48 mmHg. Aortic Valve Trisinus/trileaflet aortic valve. Mild diffuse aortic valve thickening. Mild focal aortic valve calcification. Pulmonic Valve The pulmonic valve is not well visualized. Mild (1+) pulmonic valve insufficiency. Great Vessels Normal sized aortic root. Pericardium/Pleural Trivial pericardial effusion. There are no echocardiographic indications of cardiac tamponade. MMode/2D Measurements & Calculations LVIDd: 5.4 cm IVSd: 1.3 cm LVOT diam: 2.0 cm LVIDs: 3.7 cm LVPWd: 1.4 cm LVOT area: 3.2 cm2 RVDd: 3.4 cm FS: 31.6 % Ao root diam: 3.1 cm LAV(MOD-bp): 117.5 ml LA A4 area: 30.6 cm2 LA dimension: 5.2 cm LAV(MOD-bp) Indexed: 72.6 ml/m2 LAV(MOD-sp2): 111.0 ml LAV(MOD-sp4): 116.9 ml RA A4 area: 18.4 cm2 Doppler Measurements & Calculations MV E max ariel: 137.0 cm/sec Lat Peak E' Ariel: 9.9 cm/sec Med Peak E' Ariel: 7.4 cm/sec E/E' lat: 13.8 E/E' med: 18.6 MV V2 max: 203.8 cm/sec MV P1/2t max ariel: 202.2 cm/sec Ao V2 max: 174.6 cm/sec MV max P.6 mmHg MV P1/2t: 71.9 msec Ao max P.2 mmHg MV V2 mean: 102.3 cm/sec MV dec slope: 823.4 cm/sec2 Ao V2 mean: 118.3 cm/sec MV mean P.3 mmHg MVA(P1/2t): 3.1 cm2 Ao mean P.3 mmHg MV V2 VTI: 43.9 cm Ao V2 VTI: 31.6 cm MVA(VTI): 1.7 cm2 ZEV(I,D): 2.4 cm2 ZEV(V,D): 2.6 cm2 LV V1 max: 143.8 cm/sec MR max ariel: 503.7 cm/sec SV(LVOT): 76.4 ml LV V1 max P.3 mmHg MR max P.5 mmHg LV V1 mean P.8 mmHg MR mean ariel: 387.0 cm/sec LV V1 mean: 90.3 cm/sec MR mean P.9 mmHg LV V1 VTI: 23.8 cm MR VTI: 158.6 cm PA V2 max: 95.2 cm/sec TR max ariel: 312.0 cm/sec TR max P.5 mmHg Interpretation Summary Left ventricular systolic function is normal. The estimated ejection fraction is 60 %. Mild concentric left ventricular hypertrophy. Apical false tendon noted. The left atrium is severely enlarged. The right atrium is mildly enlarged. Mild diffuse mitral valve thickening. Mild focal mitral valve calcification of the anterior leaflet. Moderately severe (3+) eccentric mitral valve insufficiency. Moderate (2+) tricuspid valve insufficiency. Mild diffuse aortic valve thickening. Mild focal aortic valve calcification. Mild (1+) pulmonic valve insufficiency. Trivial pericardial effusion. There are no echocardiographic indications of cardiac tamponade. Right ventricular systolic pressure estimated to be 48 mmHg. There is evidence of diastolic dysfunction. Ordering Physician: Fermin Harrell Referring Physician: ROSAURA QUINONES Performed By: Samson Tse RCS
--- NOTE | 2018-07-17 20:33 | CON.PCM_ITS ---
Problem List (1) Atrial fibrillation Status: Acute Qualifiers: Atrial fibrillation type: persistent Qualified Code(s): I48.1 - Persistent atrial fibrillation (2) SOB (shortness of breath) Status: Acute (3) Mitral valve insufficiency Status: Chronic (4) Hyperlipidemia Status: Chronic Qualifiers: (5) Hypertension Status: Chronic Qualifiers: (6) Hypothyroidism Status: Chronic Reason for Consult Date of Consultation: 07/17/18 History of Present Illness: The patient is a 67 year old white female who presented to the outpatient cardiovascular setting with concerns of shortness of breath/dyspnea and elevated heart rate. She has been having progressive shortness of breath and dyspnea and elevated heart rate over the last approximately 2 weeks. She has been recording her heart rate and blood pressure. She notes her heart rate has been higher over the last 2 weeks. She notes when it is higher her blood pressure waxed and wanes. Sometimes it is low. During the low time she has noted some symptoms of lightheadedness. She denies any ongoing chest discomfort other than the uncomfortable feeling of her shortness of breath/dyspnea. There is been no obvious orthopnea or PND or worsening peripheral pitting edema. There has been no near syncope or syncope. In the outpatient setting an ECG was performed. She was noted to be in atrial fibrillation/flutter with rapid ventricular response. She was subsequently recommended for further inpatient evaluation and care. She was subsequently transported to the [facility] emergency department. There she initiated evaluation with laboratory studies, radiologic studies, and subsequent medical therapy. Her medications have included IV diltiazem and IV heparin. On IV diltiazem her heart rate has decreased. Troponin I level was negative. Her TSH level was somewhat elevated. Her chest x-ray suggested no acute cardiopulmonary disease process. [] Past Medical History Allergies/Adverse Reactions: Allergies Penicillins [PCN] Allergy (Verified 07/17/18 15:53) Unknown lisinopril Adverse Reaction (Intermediate, Verified 07/17/18 15:53) cough Home Medications: Ambulatory Orders Medication Instructions Recorded Atorvastatin Calcium [Lipitor] 40 mg PO DAILY 08/16/17 Fluoxetine [Prozac] 20 mg PO DAILY 08/16/17 Losartan Potassium [Cozaar] 50 mg PO BID 08/16/17 acetaminophen 500 mg capsule 500 mg PO Q6H PRN 10/17/17 atenolol 50 mg tablet 25 mg PO DAILY 10/17/17 Ascorbic Acid [Vitamin C] 500 mg PO DAILY@0800 02/10/18 calcium carbonate 600 mg (1,500 1 tab PO QDAY 04/24/18 mg)-vitamin D3 200 unit tablet levothyroxine 125 mcg tablet 125 mcg PO QDAY 04/24/18 Amlodipine [Norvasc] 2.5 mg PO QHS 07/17/18 Amlodipine [Norvasc] 5 mg PO DAILY 07/17/18 Bupropion HCl [Bupropion HCl Sr] 150 mg PO DAILY 07/17/18 Clindamycin [Cleocin] 150 mg PO DAILY 07/17/18 H.P. 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 history - *Family History Maternal Family History: Family History (Last Reviewed 07/17/18 @ 17:32 by Fermin Harrell DO) Father Heart disease History Items: Dementia, - - thyroid Paternal Family History: Family History (Last Reviewed 07/17/18 @ 17:32 by Fermin Harrell DO) Father Heart disease History Items: - - thyroid Sibling Family History: Family History (Last Reviewed 07/17/18 @ 17:32 by Fermin Harrell DO) Father Heart disease History Items: - - thyroid Lives: Spouse/ Significant Other Smoking Status: Never smoker Tobacco Use: Non-smoker Alcohol: None Drugs: None Review of Systems - Review of Systems General: Denies: Fever, Night Sweats, Fatigue Cardiovascular: Reports: Shortness of Breath, Shortness of Breath at Rest, Shor tness of Breath with Exertion, Palpitations, Lightheadedness. Denies: Chest Discomfort, Orthopnea, PND, Peripheral Edema, Dizziness, Near Syncope, Syncope Respiratory: Reports: Shortness of Breath. Denies: Cough, Sputum Production, Hemoptysis Gastrointestinal: Reports: Indigestion Genitourinary: Denies: Dysuria, Hematuria Skin: Denies: Rash Subjectve: This is a 67-year-old white female who appears to be resting comfortably at the moment in no acute distress. Objective: Vital Signs Temp Pulse Resp BP Pulse Ox 98.1 F 88 17 116/83 H 95 07/17/18 18:54 07/17/18 20:00 07/17/18 20:00 07/17/18 20:00 07/17/18 20:00 Oxygen Delivery Method Room Air Weight: 143 lb 8.335 oz Body Mass Index (BMI) 22.8 General: Awake, Alert, Oriented x 3, Cooperative, No Acute Distress HEENT: Atraumatic, Normocephalic, PERRL, EOMI, Sclera Non Icteric Oral: Moist Mucosa Neck: Supple, Good ROM, No JVD Lungs: Clear to auscultation Cardiovascular: Irregular Rhythm, Normal S1, Normal S2 Murmur Murmur: Grade 3/6, Holosystolic, [place], Axilla Vascular: No Carotid Bruits Abdomen: Bowel Sounds Present, Soft, Non Tender Extremities: No Cyanosis, No Clubbing, No edema Neurological: No Focal Motor or Sensory Deficit Psych/Mental Status: Appropriate, Normal Affect 07/17/18 16:05: PT 14.4, INR 1.1, APTT 28.9 07/17/18 16:05: Magnesium 1.9, Total Bilirubin 0.70, Direct Bilirubin 0.21, Troponin I < 0.015 07/17/18 19:58: Troponin I < 0.015 Rhythm: Atrial fibrillation/flutter with rapid ventricular response EKG: Atrial fibrillation/flutter with rapid ventricular response ECHO: 11/07/2017: Left ventricle: Normal with an LVEF 55%; mild concentric LVH; apical false tendon; moderate left atrial enlargement; mild diffuse mitral valve thickening with mild focal mitral valve calcification of the anterior leaflet with mitral valve cord thickening/calcification with moderate MR, mild TR, mild LA, and an estimated RV systolic pressure of 35 mmHg CXR: As noted above: Please see official report Assessment/Plan 1. Shortness of breath/dyspnea The patient presents with shortness of breath/dyspnea. The etiology may very well be related to her atrial dysrhythmia with rapid ventricular response superimposed upon her underlying cardiovascular disease process with mitral valve regurgitation. At the moment there is been no evidence of acute coronary syndrome/AL. She has had no evidence of acute CHF. There is been no evidence suggesting noncardiovascular etiologies such as thromboembolic disease, underlying primary pulmonary disease, etc. thus far. She will continue to be monitored for obvious etiologies. In the meantime she will undergo evaluation care of her underlying cardiovascular disease process. Thus will include her atrial dysrhythmia with attempts at slowing her atrial rate with the hopes of at some point in time regaining sinus rhythm. In the meantime she will need further evaluation. This will include a follow-up transthoracic echocardiogram to reassess her chamber size and her mitral valve anatomy and physiology. She is also not undergone evaluation for any obvious evidence of coronary artery disease in the past that she recalls. Thus a pharmacologic stress nuclear imaging study would not be unreasonable to assess for any obvious evidence of myocardial ischemia that would warrant further invasive evaluation and care. 2. Atrial fibrillation/flutter with rapid ventricular response She will continue to be monitored. Her cardiac enzymes and ECGs are being followed. An echocardiogram will reassess her chamber size and function as well as her valvular anatomy and physiology. A pharmacologic stress nuclear imaging study will assess for any obvious ongoing evidence of myocardial ischemia contributing to her symptoms or findings. In the interim she will continue medical management with rate control and anticoagulant therapy. Over time consideration will be given to regaining sinus rhythm, if she does not do so spontaneously, with a synchronized biphasic DC cardioversion. 3. Mitral valve regurgitation She does have evidence of mitral valve regurgitation based on history, exam, and previous echocardiogram. This will be reassessed noninvasively. It is noted that her mitral valve regurgitation may be a contributing factor to her atrial dysrhythmia. Thus over time it may make it challenging to control her atrial dysrhythmia with her underlying MR. 3. Hyperlipidemia She will continue evaluation care as deemed appropriate. 4. Hypertension Blood pressure may also be a contributing factor to her atrial dysrhythmia. She will need to continue antihypertensive therapy. 5. Thyroid disorder She has had a thyroid disorder. The TSH levels have demonstrated in the past that she was hypothyroid, and potentially hyperthyroid, and now hypothyroid. Her thyroid function levels will need to be followed and her medications will be adjusted by her primary care physicians to maintain a euthyroid state to minimize any negative impact on her cardiovascular disease process. Comment: The patient's case was discussed with the patient. This note was generated with Dragon dictation software. It may contain incorrect words, spelling, and punctuation that were not noted in checking the note befor e signing.
[2018-07-17] MEDS: Losartan Potassium 50 MG Tablet PO (21:55)
[2018-07-17] MEDS: amLODIPine 2.5 MG Tablet PO (21:55)
[2018-07-17] MEDS: Atorvastatin Calcium 40 MG Tablet PO (21:55)
[2018-07-17 22:59] LABS: Partial Thromboplast Time 122.2 Seconds (24.1-36.2)
[2018-07-18] VITALS (21 sets, daily range): BP systolic 100–133; BP diastolic 64–89; PULSE 70–107; RESP 14–21; TEMP 36.4–37; O2SAT 92–98
[2018-07-18 05:26] LABS: Hematocrit 33.3 % (37-47); Hemoglobin 11.3 g/dl (12.0-15.0); Mean Corp Hgb Conc 33.9 g/gl (32-36); Mean Corpuscular Hgb 31.6 pg (27.0-32.0); Mean Platelet Vol. 10.6 fl (6.2-12.0); Platelet Count 182 K/mm3 (150-450); RBC Distribution Width CV 14.2 % (11.6-14.6); RBC Distribution Width SD 46.1 fl (35.1-43.9); Red Blood Count 3.58 M/mm3 (4.2-5.4); White Blood Count 6.2 K/mm3 (4.4-11.0)
[2018-07-18 05:30] LABS: Partial Thromboplast Time 43.9 Seconds (24.1-36.2)
[2018-07-18 05:36] LABS: Scan Indicated on CBC? Y/N NO
[2018-07-18 05:41] LABS: International Normalized Ratio 1.1; Prothrombin Time (Protime)PT. 14.4 SECONDS (11.7-14.9)
[2018-07-18 05:46] LABS: Anion Gap 9 (5-15); BUN 17 mg/dL (7-18); BUN/Creat Ratio 20.6 RATIO (10-20); Calcium,Total 8.6 mg/dL (8.5-10.1); Chloride 106 mmol/L (98-107); Creatinine, Serum 0.82 mg/dL (0.55-1.02); EST Glomerular Filtration Rate 74 mL/min (>60); Est Glom Filt Rate - Afr Amer 89 mL/min (>60); Estimated Creatinine Clearance 63.18 ml/min; Free T3 1.7 pg/mL (2.18-3.98); Glucose 165 mg/dL (74-106); Potassium 4.1 mmol/L (3.5-5.1); Sodium Level 139 mmol/L (136-145); T4 Free Direct 1.44 ng/dL (0.76-1.46)
[2018-07-18] MEDS: Heparin Injection (Vial) 5,000 UNIT/ML VIAL IV (05:55)
--- NOTE | 2018-07-18 05:55 | EKG12_ITS ---
Test Reason : AM EKG Blood Pressure : / mmHG Vent. Rate : 088 BPM Atrial Rate : 375 BPM P-R Int : 000 ms QRS Dur : 104 ms QT Int : 388 ms P-R-T Axes : 000 042 039 degrees QTc Int : 469 ms Atrial fibrillation Septal infarct , age undetermined Abnormal ECG When compared with ECG of 17-JUL-2018 16:00, MANUAL COMPARISON REQUIRED, DATA IS UNCONFIRMED Confirmed by VY HAMMOND, SAUNDRA ([id number]), editor department MARILYN FULLER ([id number]) on 07/23/2018 3:41:33 PM Referred By: GILBERTO Confirmed By:SAUNDRA MCCLELLAN MD
[2018-07-18] MEDS: Levothyroxine 125 MCG Tablet PO (05:56)
[2018-07-18] MEDS: Losartan Potassium 50 MG Tablet PO ×2 (05:56→21:14)
[2018-07-18] MEDS: Aspirin 81 MG TAB.CHEW PO (05:56)
--- NOTE | 2018-07-18 09:49 | CASEMGMT ---
Addendum entered by Jayna Paulino 07/18/18 12:02: This RN CM to room to complete CM assessment and Nicky CONTEH is at bedside with pt at this time. Will attempt again later. Alexandra WHITE CM Original Note: This RN CM to room to complete CM assessment and pt is out of the dept getting a stress test at this time. Will attempt again later. Alexandra WHITE CM
--- NOTE | 2018-07-18 12:05 | CASEMGMT ---
CINDY GOMEZ assessment: Face to Face with patient for initial transition planning/care coordination assessment. CINDY GOMEZ introduced self and role at [facility], pt voices understanding and consents to assessment at this time. Pt is sitting up in bed in no distress at this time. Pt is A/Ox4 at this time and answers all questions appropriately at this time. Care providers, pharmacy, and demographics verified at this time. PCP: John Specialists: Ashish-cardio; Rajesh-nephro in [place] Preferred Pharmacy: [facility] Insurance: [facility] A/B, [facility] Prescription Benefit: [employer] Living Will/HPOA: Pt does not currently have either but is interested in completing both at this time. Referral to Kishore CORDERO at this time, voices understanding. LNOK: Ghazal Simeon, daughter Living Arrangements: Pt lives with sig other in a mobile home and states no concerns at home at this time. Transportation: Pt states drives self and states no transportation concerns at this time. DME/HHC: Pt states no current DME or need for any at this time. Pt states no hx of HHC or SNF. Pt states no concerns with going home at time of discharge. Physicians still unsure on anti-coagulant for pt at this time so CM will follow for home anti-coagulant. Pt states does not smoke or drink ETOH. Pt states no further concerns/needs at this time. Plan: [place] CINDY GOMEZ
--- NOTE | 2018-07-18 12:13 | STRESSREP ---
Stress Test Report Pharmacologic myocardial perfusion stress test. 67-year-old lady with a history of atrial fibrillation and valvular heart disease. Stress protocol. Resting EKG demonstrates atrial for ablation with a rate of 96 bpm normal intervals and noted resting blood pressure 720/70 8 mmHg. 0.4 mg of regadenoson was infused per usual protocol followed by rapid intravenous saline flush injection continuous EKG monitoring was performed. The maximum heart rate attained was 105 bpm which was 68% of maximum predicted heart rate the maximum workload was 1 metabolic equivalent. The patient maintained atrial for ablation throughout the recording. At rest there were no ST or T wave changes noted suggest abnormal flow reserve at peak infusion no ST or T wave changes were noted suggest abnormal flow reserve. No clinical angina was noted. Resting blood pressure 120/78 final blood pressure 125/74. Myocardial perfusion protocol. 12.0 mCi of technetium 99m sestamibi was injected at rest. 0.4 mg of regadenoson was infused per usual protocol peak infusion 36.0 mCi of technetium 99m sestamibi was injected stress images were obtained stress and rest images were reconstructed and compared in the short axis vertical long horizontal long axis. Gated images were also obtained next Perfusion SPECT analysis: Review of the stress images demonstrate normal uptake of tracer noted in all areas of the myocardium the resting images similarly demonstrate normal uptake of tracer noted in all areas of the myocardium. Gated images were not obtained. Conclusion: Normal pharmacologic myocardial perfusion stress test. Preserved ejection fraction.
[2018-07-18] MEDS: Calcium Carb/Vitamin D 1 TABLET Tablet PO (12:21)
[2018-07-18] MEDS: Ascorbic Acid 500 MG Tablet PO (12:21)
[2018-07-18] MEDS: amLODIPine 5 MG Tablet PO (12:22)
[2018-07-18] MEDS: Spironolactone 25 MG Tablet PO (12:22)
[2018-07-18] MEDS: FLUoxetine 20 MG Capsule PO (12:22)
[2018-07-18] MEDS: Atenolol 50 MG Tablet PO (12:22)
[2018-07-18] MEDS: buPROPion (SR) 150 MG Tablet.SA PO (12:23)
--- NOTE | 2018-07-18 13:04 | PN_ITS ---
<Silvio Slater - Last Filed: 07/18/18 13:01> Patient Problems: Active and Suspected Problems (Last Reviewed 07/17/18 @ 17:32 by Fermin Harrell DO) Atrial fibrillation (Acute) Subjective: Patient resting comfortably in bed no acute distress. No further palpitations. No dizziness or lightheadedness, no shortness of breath. She remains somewhat tired. She underwent stress test this morning. Rate is much better controlled however she remains in fibrillation. - Physical Exam General: Alert, Oriented x3, Cooperative HEENT: Atraumatic, PERRLA, EOMI, Normocephalic Neck: Supple, No JVD, Negative Carotid Bruits Lungs: Clear to auscultation, Normal air movement Cardiovascular: No murmurs, Irregular Rate Abdomen: Bowel Sounds Present, Soft, Non Tender Extremities: No edema, Capillary Refill Less than 3 Seconds Skin: No rashes, No breakdown Musculoskeletal: No Tenderness to Palpation of Joints or Extremities Neurological: Cranial nerves II-XII grossly intact Psych/Mental Status: Normal Affect, Appropriate, Alert and oriented to time, place, person, mood and affect Vital Signs Temp Pulse Resp BP Pulse Ox 98 F 100 19 H 133/89 H 98 07/18/18 09:00 07/18/18 12:00 07/18/18 12:00 07/18/18 12:00 07/18/18 12:00 Oxygen Delivery Method Room Air Weight: 143 lb 8.335 oz Body Mass Index (BMI) 22.8 Intake and Output for Last 24 Hours 07/16/18 07/17/18 07/18/18 23:59 23:59 23:59 Intake Total 104 / 104 335 / 335 Balance 104 / 104 335 / 335 Laboratory Tests Past 24 Hrs 07/17/18 07/17/18 07/17/18 16:05 16:05 19:58 WBC RBC Hgb Hct MCV MCH MCHC RDW RDW Differential Plt Count MPV PT 14.4 INR 1.1 APTT 28.9 Sodium Potassium Chloride Carbon Dioxide Anion Gap BUN Creatinine Estim Creat Clear Calc Est GFR (MDRD) Af Amer Est GFR (MDRD) Non-Af BUN/Creatinine Ratio Glucose Calcium Magnesium 1.9 Total Bilirubin 0.70 Direct Bilirubin 0.21 AST 44 H ALT 63 H Alkaline Phosphatase 74 Troponin I < 0.015 < 0.015 Total Protein 5.9 L Albumin 2.9 L Globulin 3.0 TSH 5.57 H Free T4 Free T3 pg/dL 07/17/18 07/17/18 07/18/18 22:35 22:35 05:08 WBC RBC Hgb Hct MCV MCH MCHC RDW RDW Differential Plt Count MPV PT INR APTT 122.2 H* Sodium 139 Potassium 4.1 Chloride 106 Carbon Dioxide 24.0 Anion Gap 9 BUN 17 Creatinine 0.82 Estim Creat Clear Calc 63.18 Est GFR (MDRD) Af Amer 89 Est GFR (MDRD) Non-Af 74 BUN/Creatinine Ratio 20.6 H Glucose 165 H Calcium 8.6 Magnesium Total Bilirubin Direct Bilirubin AST ALT Alkaline Phosphatase Troponin I < 0.015 Total Protein Albumin Globulin TSH Free T4 1.44 Free T3 pg/dL 1.7 L 07/18/18 07/18/18 07/18/18 05:08 05:08 05:08 WBC 6.2 RBC 3.58 L Hgb 11.3 L Hct 33.3 L MCV 93.0 MCH 31.6 MCHC 33.9 RDW 14.2 RDW Differential 46.1 H Plt Count 182 MPV 10.6 PT 14.4 INR 1.1 APTT 43.9 H Sodium Potassium Chloride Carbon Dioxide Anion Gap BUN Creatinine Estim Creat Clear Calc Est GFR (MDRD) Af Amer Est GFR (MDRD) Non-Af BUN/Creatinine Ratio Glucose Calcium Magnesium Total Bilirubin Direct Bilirubin AST ALT Alkaline Phosphatase Troponin I Total Protein Albumin Globulin TSH Free T4 Free T3 pg/dL 07/18/18 12:38 WBC RBC Hgb Hct MCV MCH MCHC RDW RDW Differential Plt Count MPV PT INR APTT Pending Sodium Potassium Chloride Carbon Dioxide Anion Gap BUN Creatinine Estim Creat Clear Calc Est GFR (MDRD) Af Amer Est GFR (MDRD) Non-Af BUN/Creatinine Ratio Glucose Calcium Magnesium Total Bilirubin Direct Bilirubin AST ALT Alkaline Phosphatase Troponin I Total Protein Albumin Globulin TSH Free T4 Free T3 pg/dL Medical Necessity - Tobacco Use Smoking Status: Never smoker Tobacco Use: Non-smoker Assessment/Plan All Active Problems (Last Reviewed 07/17/18 @ 17:32 by Fermin Harrell DO) Atrial fibrillation (Acute) SOB (shortness of breath) (Acute) Edema (Acute) 1. Afib with rvr refractory to IV beta roxann -cardiology following. On Cardizem drip. Echo with normal LV systolic function, mild LVH, EF 60%. 2+ TVI. 1+ PVI. RVSP is 48 mmHg. Stress test normal. Rate improved, still atrial fibrillation. Remains on heparin drip plan to transition to oral anticoagulation per cardiology. 2. CKD unspecified etiology with proteinuria - Pt of Dr. Mena in [place], on acthar for proteinuria. 3. Hypothyroid - tsh high, T4 normal, T3 low. 4. HTN - stable currently 5. Anx/Dep - wellbutrin/prozac. 6. Chronic LE edema - states she was worked up for heart failure in past but does not have it, takes aldactone for chronic LE edema. DVT ppx: heparin This patient was seen by Silvio Slater PA-C under the supervision of Doctor Pedro <Kike Vasquez - Last Filed: 07/18/18 15:43> Subjective: Seen and examined. Admitted for palpitation consistent with new onset A. fib she experienced flutter waves for a few weeks on and off. No chest pain. Stress test and echo was ordered and done. - Physical Exam General: Alert, Oriented x3, Cooperative HEENT: Atraumatic, PERRLA, EOMI, Normocephalic Neck: Supple, No JVD, Negative Carotid Bruits Lungs: Clear to auscultation, Normal air movement Cardiovascular: Regular rate, Normal S1, Normal S2, No murmurs, Irregular Rate Abdomen: Bowel Sounds Present, Soft, Non Tender, Non-Distended Extremities: No edema, Capillary Refill Less than 3 Seconds Skin: No rashes, No breakdown Musculoskeletal: No Tenderness to Palpation of Joints or Extremities Neurological: Cranial nerves II-XII grossly intact Psych/Mental Status: Normal Affect, Appropriate Vital Signs Temp Pulse Resp BP Pulse Ox 98.1 F 78 14 100/64 96 07/18/18 14:00 07/18/18 14:00 07/18/18 14:00 07/18/18 14:00 07/18/18 14:00 Oxygen Delivery Method Room Air Weight: 143 lb 8.335 oz Body Mass Index (BMI) 22.8 Intake and Output for Last 24 Hours 07/16/18 07/17/18 07/18/18 23:59 23:59 23:59 Intake Total 104 / 104 335 / 335 Balance 104 / 104 335 / 335 Laboratory Tests Past 24 Hrs 07/17/18 07/17/18 07/17/18 16:05 16:05 19:58 WBC RBC Hgb Hct MCV MCH MCHC RDW RDW Differential Plt Count MPV PT 14.4 INR 1.1 APTT 28.9 Sodium Potassium Chloride Carbon Dioxide Anion Gap BUN Creatinine Estim Creat Clear Calc Est GFR (MDRD) Af Amer Est GFR (MDRD) Non-Af BUN/Creatinine Ratio Glucose Calcium Magnesium 1.9 Total Bilirubin 0.70 Direct Bilirubin 0.21 AST 44 H ALT 63 H Alkaline Phosphatase 74 Troponin I < 0.015 < 0.015 Total Protein 5.9 L Albumin 2.9 L Globulin 3.0 TSH 5.57 H Free T4 Free T3 pg/dL 07/17/18 07/17/18 07/18/18 22:35 22:35 05:08 WBC RBC Hgb Hct MCV MCH MCHC RDW RDW Differential Plt Count MPV PT INR APTT 122.2 H* Sodium 139 Potassium 4.1 Chloride 106 Carbon Dioxide 24.0 Anion Gap 9 BUN 17 Creatinine 0.82 Estim Creat Clear Calc 63.18 Est GFR (MDRD) Af Amer 89 Est GFR (MDRD) Non-Af 74 BUN/Creatinine Ratio 20.6 H Glucose 165 H Calcium 8.6 Magnesium Total Bilirubin Direct Bilirubin AST ALT Alkaline Phosphatase Troponin I < 0.015 Total Protein Albumin Globulin TSH Free T4 1.44 Free T3 pg/dL 1.7 L 07/18/18 07/18/18 07/18/18 05:08 05:08 05:08 WBC 6.2 RBC 3.58 L Hgb 11.3 L Hct 33.3 L MCV 93.0 MCH 31.6 MCHC 33.9 RDW 14.2 RDW Differential 46.1 H Plt Count 182 MPV 10.6 PT 14.4 INR 1.1 APTT 43.9 H Sodium Potassium Chloride Carbon Dioxide Anion Gap BUN Creatinine Estim Creat Clear Calc Est GFR (MDRD) Af Amer Est GFR (MDRD) Non-Af BUN/Creatinine Ratio Glucose Calcium Magnesium Total Bilirubin Direct Bilirubin AST ALT Alkaline Phosphatase Troponin I Total Protein Albumin Globulin TSH Free T4 Free T3 pg/dL 07/18/18 12:38 WBC RBC Hgb Hct MCV MCH MCHC RDW RDW Differential Plt Count MPV PT INR APTT 52.1 H Sodium Potassium Chloride Carbon Dioxide Anion Gap BUN Creatinine Estim Creat Clear Calc Est GFR (MDRD) Af Amer Est GFR (MDRD) Non-Af BUN/Creatinine Ratio Glucose Calcium Magnesium Total Bilirubin Direct Bilirubin AST ALT Alkaline Phosphatase Troponin I Total Protein Albumin Globulin TSH Free T4 Free T3 pg/dL Assessment/Plan This patient was seen in conjunction with Silvio JARQUIN. I have independently interviewed and examined the patient and reviewed pertinent history, examination findings, laboratory and plan of management. I have reviewed the note and agre e with the documented findings with the few additional points. In brief, patient is admitted for A. fib with RVR, currently on IV Cardizem drip. Echo as mentioned above, EF 60% with normal LV systolic function, TR 2+, RVSP 48 mm G. Stress test normal. Titrate Cardizem drips. TSH mildly elevated 5.57, free T4 1.4, free T3 0.7 low. Free T3 was also low 1.6 in September 2017. Dose of levothyroxine increased. Might be assessed as an outpatient if [place] Thyroid, combination of T4 and T3 is good for her. 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 I have discussed my assessment with Silvio JARQUIN and orders have been reviewed. Laboratory Results 07/17/18 16:05: PT 14.4, INR 1.1, APTT 28.9 07/17/18 16:05: Magnesium 1.9, Total Bilirubin 0.70, Direct Bilirubin 0.21, AST 44 H, ALT 63 H, Alkaline Phosphatase 74, Troponin I < 0.015, Total Protein 5.9 L , Albumin 2.9 L, Globulin 3.0, TSH 5.57 H 07/17/18 19:58: Troponin I < 0.015 07/17/18 22:35: Troponin I < 0.015 07/17/18 22:35: APTT 122.2 H* 07/18/18 05:08: Sodium 139, Potassium 4.1, Chloride 106, Carbon Dioxide 24.0, Anion Gap 9, BUN 17, Creatinine 0.82, Estim Creat Clear Calc 63.18, Est GFR (MDRD) Af Amer 89, Est GFR (MDRD) Non-Af 74, BUN/Creatinine Ratio 20.6 H, Glucose 165 H, Calcium 8.6, Free T4 1.44, Free T3 pg/dL 1.7 L 07/18/18 05:08: PT 14.4, INR 1.1 07/18/18 05:08: WBC 6.2, RBC 3.58 L, Hgb 11.3 L, Hct 33.3 L, MCV 93.0, MCH 31.6, MCHC 33.9, RDW 14.2, RDW Differential 46.1 H, Plt Count 182, MPV 10.6 07/18/18 05:08: APTT 43.9 H 07/18/18 12:38: APTT 52.1 H Code Visit Inpatient E&M: 11181 Subs Hosp L3
--- NOTE | 2018-07-18 13:04 | PCM.PN.CARD ---
Subjectve: The patient denies any ongoing chest discomfort or difficulty breathing. She does not appear to recognize her underlying atrial dysrhythmia. Objective: Vital Signs Temp Pulse Resp BP Pulse Ox 98 F 100 19 H 133/89 H 98 07/18/18 09:00 07/18/18 12:00 07/18/18 12:00 07/18/18 12:00 07/18/18 12:00 Oxygen Delivery Method Room Air Weight: 143 lb 8.335 oz Body Mass Index (BMI) 22.8 Intake and Output for Last 24 Hours 07/16/18 07/17/18 07/18/18 23:59 23:59 23:59 Intake Total 104 / 104 335 / 335 Balance 104 / 104 335 / 335 General: Awake, Alert, Oriented x 3, Cooperative, No Acute Distress, Ill Appearing HEENT: Atraumatic, Normocephalic, PERRL, EOMI, Sclera Non Icteric Oral: Moist Mucosa Neck: Supple, Good ROM, No JVD Lungs: Clear to auscultation Cardiovascular: Irregular Rhythm, Normal S1, Normal S2 Murmur Murmur: Grade 3/6, Holosystolic, [place], Axilla Vascular: No Carotid Bruits Abdomen: Bowel Sounds Present, Soft, Non Tender Extremities: No edema Neurological: No Focal Motor or Sensory Deficit Psych/Mental Status: Appropriate, Normal Affect 07/17/18 16:05: PT 14.4, INR 1.1, APTT 28.9 07/17/18 16:05: Magnesium 1.9, Total Bilirubin 0.70, Direct Bilirubin 0.21, Troponin I < 0.015 07/17/18 19:58: Troponin I < 0.015 07/17/18 22:35: Troponin I < 0.015 07/17/18 22:35: APTT 122.2 H* 07/18/18 05:08: Sodium 139, Potassium 4.1, Chloride 106, Carbon Dioxide 24.0, Anion Gap 9, BUN 17, Creatinine 0.82, Est GFR (MDRD) Af Amer 89, Est GFR (MDRD) Non-Af 74, BUN/Creatinine Ratio 20.6 H, Glucose 165 H, Calcium 8.6 07/18/18 05:08: PT 14.4, INR 1.1 07/18/18 05:08: WBC 6.2, RBC 3.58 L, Hgb 11.3 L, Hct 33.3 L, MCV 93.0, MCH 31.6, MCHC 33.9, RDW 14.2, RDW Differential 46.1 H, Plt Count 182, MPV 10.6 07/18/18 05:08: APTT 43.9 H Rhythm: Atrial fibrillation EKG: Atrial fibrillation; septal NH of indeterminate age cannot be excluded ECHO: 07/18/2018 Interpretation Summary Left ventricular systolic function is normal. The estimated ejection fraction is 60 %. Mild concentric left ventricular hypertrophy. Apical false tendon noted. The left atrium is severely enlarged. The right atrium is mildly enlarged. Mild diffuse mitral valve thickening. Mild focal mitral valve calcification of the anterior leaflet. Moderately severe (3+) eccentric mitral valve insufficiency. Moderate (2+) tricuspid valve insufficiency. Mild diffuse aortic valve thickening. Mild focal aortic valve calcification. Mild (1+) pulmonic valve insufficiency. Trivial pericardial effusion. There are no echocardiographic indications of cardiac tamponade. Right ventricular systolic pressure estimated to be 48 mmHg. There is evidence of diastolic dysfunction. Stress Test: 07/18/2018 Stress protocol. Resting EKG demonstrates atrial for ablation with a rate of 96 bpm normal intervals and noted resting blood pressure 720/70 8 mmHg. 0.4 mg of regadenoson was infused per usual protocol followed by rapid intravenous saline flush injection continuous EKG monitoring was performed. The maximum heart rate attained was 105 bpm which was 68% of maximum predicted heart rate the maximum workload was 1 metabolic equivalent. The patient maintained atrial for ablation throughout the recording. At rest there were no ST or T wave changes noted suggest abnormal flow reserve at peak infusion no ST or T wave changes were noted suggest abnormal flow reserve. No clinical angina was noted. Resting blood pressure 120/78 final blood pressure 125/74. Myocardial perfusion protocol. 12.0 mCi of technetium 99m sestamibi was injected at rest. 0.4 mg of regadenoson was infused per usual protocol peak infusion 36.0 mCi of technetium 99m sestamibi was injected stress images were obtained stress and rest images were reconstructed and compared in the short axis vertical long horizontal long axis. Gated images were also obtained next Perfusion SPECT analysis: Review of the stress images demonstrate normal uptake of tracer noted in all areas of the myocardium the resting images similarly demonstrate normal uptake of tracer noted in all areas of the myocardium. Gated images were not obtained. Conclusion: Normal pharmacologic myocardial perfusion stress test. Preserved ejection fraction. Medical Necessity - Tobacco Use Smoking Status: Never smoker Tobacco Use: Non-smoker Assessment/Plan 1. Shortness of breath/dyspnea The patient presents with shortness of breath/dyspnea. The etiology may very well be related to her atrial dysrhythmia with rapid ventricular response superimposed upon her underlying cardiovascular disease process with mitral valve regurgitation. At the moment there is been no evidence of acute coronary syndrome/NH. She has had no evidence of acute CHF. There is been no evidence suggesting noncardiovascular etiologies such as thromboembolic disease, underlying primary pulmonary disease, etc. thus far. She will continue to be monitored for obvious etiologies. She has undergone additional evaluation with transthoracic echocardiogram and pharmacologic stress nuclear imaging study. The results are as noted above. At the present time she will continue evaluation and care of her underlying atrial dysrhythmia. Hopefully by controlling her rate and eventually regaining sinus rhythm she will have improvement in her symptoms and her overall cardiovascular status. 2. Atrial fibrillation/flutter with rapid ventricular response It appears she has no evidence of acute coronary syndrome/NH. Her overall LV systolic function is preserved. Her left atrium is severely enlarged. Her mitral valve appears to be moderately to severely insufficient. Her estimated RV systolic pressure is elevated at 48 mmHg. Her pharmacologic stress nuclear imaging study appears to be negative. Thus at the present time she will continue medical management. This will include rate control therapy and anticoagulant therapy. Over time she can be considered for synchronized biphasic DC cardioversion in an attempt to regain sinus rhythm. Depending upon her outcome she may need to be considered for additional medical therapy with antiarrhythmic therapy and/or EPS/RFA. 3. Mitral valve regurgitation It is unclear whether her degree of mitral valve regurgitation has naturally progressed which may be leading to her atrial enlargement and her atrial dysrhythmia versus appearing more prominent based upon her underlying atrial dysrhythmia. At the present time she will continue evaluation care of her atrial dysrhythmia. Her mitral valve status will need to be followed. Pending upon her clinical course she may need CT surgery opinion for consideration for mitral valve repair, etc. 3. Hyperlipidemia She will continue evaluation care as deemed appropriate. 4. Hypertension Blood pressure may also be a contributing factor to her atrial dysrhythmia. She will need to continue antihypertensive therapy. 5. Thyroid disorder She has had a thyroid disorder. The TSH levels have demonstrated in the past that she was hypothyroid, and potentially hyperthyroid, and now hypothyroid. Her thyroid function levels will need to be followed and her medications will be adjusted by her primary care physicians to maintain a euthyroid state to minimize any negative impact on her cardiovascular disease process. Comment: The patient's case was discussed with the patient. This note was generated with [employer] dictation software. It may contain incorrect words, spelling, and punctuation that were not noted in checking the note before signing.
--- NOTE | 2018-07-18 13:10 | PN.CARD_ITS ---
Subjectve: The patient denies any ongoing chest discomfort or difficulty breathing. She does not appear to recognize her underlying atrial dysrhythmia. Objective: Vital Signs Temp Pulse Resp BP Pulse Ox 98 F 100 19 H 133/89 H 98 07/18/18 09:00 07/18/18 12:00 07/18/18 12:00 07/18/18 12:00 07/18/18 12:00 Oxygen Delivery Method Room Air Weight: 143 lb 8.335 oz Body Mass Index (BMI) 22.8 Intake and Output for Last 24 Hours 07/16/18 07/17/18 07/18/18 23:59 23:59 23:59 Intake Total 104 / 104 335 / 335 Balance 104 / 104 335 / 335 General: Awake, Alert, Oriented x 3, Cooperative, No Acute Distress, Ill Appearing HEENT: Atraumatic, Normocephalic, PERRL, EOMI, Sclera Non Icteric Oral: Moist Mucosa Neck: Supple, Good ROM, No JVD Lungs: Clear to auscultation Cardiovascular: Irregular Rhythm, Normal S1, Normal S2 Murmur Murmur: Grade 3/6, Holosystolic, [place], Axilla Vascular: No Carotid Bruits Abdomen: Bowel Sounds Present, Soft, Non Tender Extremities: No edema Neurological: No Focal Motor or Sensory Deficit Psych/Mental Status: Appropriate, Normal Affect 07/17/18 16:05: PT 14.4, INR 1.1, APTT 28.9 07/17/18 16:05: Magnesium 1.9, Total Bilirubin 0.70, Direct Bilirubin 0.21, Troponin I < 0.015 07/17/18 19:58: Troponin I < 0.015 07/17/18 22:35: Troponin I < 0.015 07/17/18 22:35: APTT 122.2 H* 07/18/18 05:08: Sodium 139, Potassium 4.1, Chloride 106, Carbon Dioxide 24.0, Anion Gap 9, BUN 17, Creatinine 0.82, Est GFR (MDRD) Af Amer 89, Est GFR (MDRD) Non-Af 74, BUN/Creatinine Ratio 20.6 H, Glucose 165 H, Calcium 8.6 07/18/18 05:08: PT 14.4, INR 1.1 07/18/18 05:08: WBC 6.2, RBC 3.58 L, Hgb 11.3 L, Hct 33.3 L, MCV 93.0, MCH 31.6, MCHC 33.9, RDW 14.2, RDW Differential 46.1 H, Plt Count 182, MPV 10.6 07/18/18 05:08: APTT 43.9 H Rhythm: Atrial fibrillation EKG: Atrial fibrillation; septal DE of indeterminate age cannot be excluded ECHO: 07/18/2018 Interpretation Summary Left ventricular systolic function is normal. The estimated ejection fraction is 60 %. Mild concentric left ventricular hypertrophy. Apical false tendon noted. The left atrium is severely enlarged. The right atrium is mildly enlarged. Mild diffuse mitral valve thickening. Mild focal mitral valve calcification of the anterior leaflet. Moderately severe (3+) eccentric mitral valve insufficiency. Moderate (2+) tricuspid valve insufficiency. Mild diffuse aortic valve thickening. Mild focal aortic valve calcification. Mild (1+) pulmonic valve insufficiency. Trivial pericardial effusion. There are no echocardiographic indications of cardiac tamponade. Right ventricular systolic pressure estimated to be 48 mmHg. There is evidence of diastolic dysfunction. Stress Test: 07/18/2018 Stress protocol. Resting EKG demonstrates atrial for ablation with a rate of 96 bpm normal intervals and noted resting blood pressure 720/70 8 mmHg. 0.4 mg of regadenoson was infused per usual protocol followed by rapid intravenous saline flush injection continuous EKG monitoring was performed. The maximum heart rate attained was 105 bpm which was 68% of maximum predicted heart rate the maximum workload was 1 metabolic equivalent. The patient maintained atrial for ablation throughout the recording. At rest there were no ST or T wave changes noted suggest abnormal flow reserve at peak infusion no ST or T wave changes were noted suggest abnormal flow reserve. No clinical angina was noted. Resting blood pressure 120/78 final blood pressure 125/74. Myocardial perfusion protocol. 12.0 mCi of technetium 99m sestamibi was injected at rest. 0.4 mg of regadenoson was infused per usual protocol peak infusion 36.0 mCi of technetium 99m sestamibi was injected stress images were obtained stress and rest images were reconstructed and compared in the short axis vertical long horizontal long axis. Gated images were also obtained next Perfusion SPECT analysis: Review of the stress images demonstrate normal uptake of tracer noted in all areas of the myocardium the resting images similarly demonstrate normal uptake of tracer noted in all areas of the myocardium. Gated images were not obtained. Conclusion: Normal pharmacologic myocardial perfusion stress test. Preserved ejection fraction. Medical Necessity - Tobacco Use Smoking Status: Never smoker Tobacco Use: Non-smoker Assessment/Plan 1. Shortness of breath/dyspnea The patient presents with shortness of breath/dyspnea. The etiology may very well be related to her atrial dysrhythmia with rapid ventricular response superimposed upon her underlying cardiovascular disease process with mitral valve regurgitation. At the moment there is been no evidence of acute coronary syndrome/DE. She has had no evidence of acute CHF. There is been no evidence suggesting noncardiovascular etiologies such as thromboembolic disease, underlying primary pulmonary disease, etc. thus far. She will continue to be monitored for obvious etiologies. She has undergone additional evaluation with transthoracic echocardiogram and pharmacologic stress nuclear imaging study. The results are as noted above. At the present time she will continue evaluation and care of her underlying atrial dysrhythmia. Hopefully by controlling her rate and eventually regaining sinus rhythm she will have improvement in her symptoms and her overall cardi ovascular status. 2. Atrial fibrillation/flutter with rapid ventricular response It appears she has no evidence of acute coronary syndrome/DE. Her overall LV systolic function is preserved. Her left atrium is severely enlarged. Her mitral valve appears to be moderately to severely insufficient. Her estimated RV systolic pressure is elevated at 48 mmHg. Her pharmacologic stress nuclear imaging study appears to be negative. Thus at the present time she will continue medical management. This will include rate control therapy and anticoagulant therapy. Over time she can be considered for synchronized biphasic DC cardioversion in an attempt to regain sinus rhythm. Depending upon her outcome she may need to be considered for additional medical therapy with antiarrhythmic therapy and/or EPS/RFA. 3. Mitral valve regurgitation It is unclear whether her degree of mitral valve regurgitation has naturally progressed which may be leading to her atrial enlargement and her atrial dysrh ythmia versus appearing more prominent based upon her underlying atrial dysrhythmia. At the present time she will continue evaluation care of her atrial dysrhythmia. Her mitral valve status will need to be followed. Pending upon her clinical course she may need CT surgery opinion for consideration for mitral valve repair, etc. 3. Hyperlipidemia She will continue evaluation care as deemed appropriate. 4. Hypertension Blood pressure may also be a contributing factor to her atrial dysrhythmia. She will need to continue antihypertensive therapy. 5. Thyroid disorder She has had a thyroid disorder. The TSH levels have demonstrated in the past that she was hypothyroid, and potentially hyperthyroid, and now hypothyroid. Her thyroid function levels will need to be followed and her medications will be adjusted by her primary care physicians to maintain a euthyroid state to minimize any negative impact on her cardiovascular disease process. Comment: The patient's case was discussed with the patient. This note was generated with [employer] software. It may contain incorrect words, spelling, and punctuation that were not noted in checking the note before signing.
[2018-07-18 13:12] LABS: Partial Thromboplast Time 52.1 Seconds (24.1-36.2)
--- NOTE | 2018-07-18 13:25 | CASEMGMT ---
SW completed advance directives with patient. Copies made and one of each placed in patient's chart. Gabriela BURDICK MSW
[2018-07-18] MEDS: dilTIAZem CD 120 MG Capsule PO ×2 (14:25→21:14)
[2018-07-18] MEDS: Rivaroxaban 20 MG Tablet PO (14:36)
[2018-07-18] MEDS: 0.9% NaCl Peripheral Flush Adult/Peds IV (16:06)
[2018-07-18] MEDS: Atorvastatin Calcium 40 MG Tablet PO (21:14)
[2018-07-19 03:01] VITALS: PULSE 98
[2018-07-19 03:02] VITALS: BP 117/81; PULSE 97; RESP 14; TEMP 36.4; O2SAT 94
[2018-07-19] MEDS: Levothyroxine 125 MCG Tablet PO (05:21)
[2018-07-19 07:05] VITALS: PULSE 80
[2018-07-19 07:33] LABS: Anion Gap 8 (5-15); BUN 28 mg/dL (7-18); BUN/Creat Ratio 24.8 RATIO (10-20); Calcium,Total 8.6 mg/dL (8.5-10.1); Chloride 106 mmol/L (98-107); Creatinine, Serum 1.13 mg/dL (0.55-1.02); EST Glomerular Filtration Rate 51 mL/min (>60); Est Glom Filt Rate - Afr Amer 62 mL/min (>60); Estimated Creatinine Clearance 45.85 ml/min; Glucose 137 mg/dL (74-106); Potassium 3.9 mmol/L (3.5-5.1); Sodium Level 142 mmol/L (136-145)
[2018-07-19 08:09] VITALS: BP 122/72; PULSE 86; RESP 16; TEMP 36.5; O2SAT 94
[2018-07-19] MEDS: dilTIAZem CD 120 MG Capsule PO (08:09)
[2018-07-19] MEDS: Aspirin 81 MG TAB.CHEW PO (08:10)
[2018-07-19] MEDS: Calcium Carb/Vitamin D 1 TABLET Tablet PO (08:10)
[2018-07-19] MEDS: Losartan Potassium 50 MG Tablet PO (08:10)
[2018-07-19] MEDS: FLUoxetine 20 MG Capsule PO (08:10)
[2018-07-19] MEDS: Spironolactone 25 MG Tablet PO (08:10)
[2018-07-19] MEDS: buPROPion (SR) 150 MG Tablet.SA PO (08:10)
[2018-07-19] MEDS: Ascorbic Acid 500 MG Tablet PO (08:10)
[2018-07-19] MEDS: Atenolol 50 MG Tablet PO (08:10)
--- NOTE | 2018-07-19 08:11 | NURSING ---
am medications given at this time due to pt requesting to take them at this time with her breakfast
--- NOTE | 2018-07-19 09:33 | PCM.DC ---
- Discharge Diagnoses Current Active Problems: Current Active and Chronic Problems (Last Reviewed 07/17/18 @ 17:32 by Fermin Harrell DO) Atrial fibrillation (Acute) Depression (Chronic) Proteinuria (Chronic) Hypothyroidism (Chronic) Mitral valve insufficiency (Chronic) You will use the following diet at home:: Cardiac Discharge Activity: Return to Normal Activity Call your doctor if you observe: Fever of 101 or Higher, Numbness or Tingling, Shortness of breath, Dizziness, Fainting spells, Chest pain Additional Instructions: Keep on home dose of levothyroxine 125 mcg daily as free T4 is normal, 1.44 even free T3 is low 1.7 and TSH 5.5. Free T3 is chronically low, 1.6 on 09/16/2017. Might consider [place] Thyroid as an outpatient with PCP Allergies/Adverse Reactions: Allergies Penicillins [PCN] Allergy (Verified 07/17/18 15:53) Unknown lisinopril Adverse Reaction (Intermediate, Verified 07/17/18 15:53) cough Medications to take at Discharge Atorvastatin Calcium [Lipitor] 40 mg PO DAILY 08/16/17 Fluoxetine [Prozac] 20 mg PO DAILY 08/16/17 Losartan Potassium [Cozaar] 50 mg PO BID 08/16/17 acetaminophen 500 mg capsule 500 mg PO Q6H PRN 10/17/17 atenolol 50 mg tablet 25 mg PO DAILY 10/17/17 Ascorbic Acid [Vitamin C] 500 mg PO DAILY@0800 02/10/18 calcium carbonate 600 mg (1,500 mg)-vitamin D3 200 unit tablet 1 tab PO QDAY 04/24/18 levothyroxine 125 mcg tablet 125 mcg PO QDAY 04/24/18 Amlodipine [Norvasc] 2.5 mg PO QHS 07/17/18 Amlodipine [Norvasc] 5 mg PO DAILY 07/17/18 Bupropion HCl [Bupropion HCl Sr] 150 mg PO DAILY 07/17/18 Clindamycin [Cleocin] 150 mg PO DAILY 07/17/18 H.P. Acthar Gel 80 units SQ UD 07/17/18 Spironolactone 25 mg PO DAILY 07/17/18 Diltiazem CD [Cardizem CD] 120 mg PO Q12 #60 capsule 07/19/18 Rivaroxaban [Xarelto] 20 mg PO DAILY@1700 #30 tablet 07/19/18 The following prescriptions were given: Diltiazem CD [Cardizem CD] 120 mg PO Q12 #60 capsule Rivaroxaban [Xarelto] 20 mg PO DAILY@1700 #30 tablet Primary Care Physician: Sandra Lopez MD [Primary Care Provider] - Please follow up with your Primary Care Physician in: in 2 weeks Test Results: Test results from this visit will be discussed in further detail at your follow-up appointment, if applicable. Please Follow Up With: Sami Hinojosa MD When: in 3-4 weeks for A fib to consier elective cardioversion
--- NOTE | 2018-07-19 09:35 | PCM.PN.CARD ---
Subjectve: Patient seen and evaluated. Not have any complaints at this particular time. Objective: Vital Signs Temp Pulse Resp BP Pulse Ox 97.7 F L 86 16 122/72 H 94 07/19/18 08:09 07/19/18 08:09 07/19/18 08:09 07/19/18 08:09 07/19/18 08:09 Oxygen Delivery Method Room Air Weight: 143 lb 8.335 oz Body Mass Index (BMI) 22.8 Intake and Output for Last 24 Hours 07/17/18 07/18/18 07/19/18 23:59 23:59 23:59 Intake Total 104 / 104 1230 / 1230 240 / 240 Balance 104 / 104 1230 / 1230 240 / 240 General: Awake, Alert, Oriented x 3 HEENT: PERRL, EOMI, Sclera Non Icteric Neck: Supple, Good ROM, No Lymph Node Enlargement Lungs: Clear to auscultation Cardiovascular: Irregular Rhythm, Normal S1, Normal S2, No Rubs, No Gallops Murmur Murmur: Grade 3/6, Holosystolic, [place], Axilla Vascular: No Carotid Bruits, Normal Femoral Pulses, Normal Radial Pulses, Normal Dorsalis Pedal Pulse, Normal Posterior Tibial Pulses Abdomen: Bowel Sounds Present, Soft, Non Tender, No HSM, No Organomegaly Extremities: No Cyanosis, No Clubbing, No edema Neurological: No Focal Motor or Sensory Deficit 07/18/18 12:38: APTT 52.1 H 07/19/18 06:15: Sodium 142, Potassium 3.9, Chloride 106, Carbon Dioxide 28.0, Anion Gap 8, BUN 28 H, Creatinine 1.13 H, Est GFR (MDRD) Af Amer 62, Est GFR (MDRD) Non-Af 51 L, BUN/Creatinine Ratio 24.8 H, Glucose 137 H, Calcium 8.6 Rhythm: EKG: ECHO: Stress Test: Cardiac Cath: PCI: CT Surgery: Holter monitor: EPS: PPM: CXR: Chest CT Scan: Medical Necessity - Tobacco Use Smoking Status: Never smoker Tobacco Use: Non-smoker Assessment/Plan 1. Shortness of breath/dyspnea The patient presents with shortness of breath/dyspnea. The etiology may very well be related to her atrial dysrhythmia with rapid ventricular response superimposed upon her underlying cardiovascular disease process with mitral valve regurgitation. At the moment there is been no evidence of acute coronary syndrome/[place]. She has had no evidence of acute CHF. There is been no evidence suggesting noncardiovascular etiologies such as thromboembolic disease, underlying primary pulmonary disease, etc. thus far. She will continue to be monitored for obvious etiologies. She has undergone additional evaluation with transthoracic echocardiogram and pharmacologic stress nuclear imaging study. The results are as noted above. At the present time she will continue evaluation and care of her underlying atrial dysrhythmia. Hopefully by controlling her rate and eventually regaining sinus rhythm she will have improvement in her symptoms and her overall cardiovascular status. 2. Atrial fibrillation/flutter with rapid ventricular response It appears she has no evidence of acute coronary syndrome/TN. Her overall LV systolic function is preserved. Her left atrium is severely enlarged. Her mitral valve appears to be moderately to severely insufficient. Her estimated RV systolic pressure is elevated at 48 mmHg. Her pharmacologic stress nuclear imaging study appears to be negative. Thus at the present time she will continue medical management. This will include rate control therapy and anticoagulant therapy. Over time she can be considered for synchronized biphasic DC cardioversion in an attempt to regain sinus rhythm. Depending upon her outcome she may need to be considered for additional medical therapy with antiarrhythmic therapy and/or EPS/RFA. 3. Mitral valve regurgitation It is unclear whether her degree of mitral valve regurgitation has naturally progressed which may be leading to her atrial enlargement and her atrial dysrhythmia versus appearing more prominent based upon her underlying atrial dysrhythmia. At the present time she will continue evaluation care of her atrial dysrhythmia. Her mitral valve status will need to be followed. Pending upon her clinical course she may need CT surgery opinion for consideration for mitral valve repair, etc. 3. Hyperlipidemia She will continue evaluation care as deemed appropriate. 4. Hypertension Blood pressure may also be a contributing factor to her atrial dysrhythmia. She will need to continue antihypertensive therapy. 5. Thyroid disorder She has had a thyroid disorder. The TSH levels have demonstrated in the past that she was hypothyroid, and potentially hyperthyroid, and now hypothyroid. Her thyroid function levels will need to be followed and her medications will be adjusted by her primary care physicians to maintain a euthyroid state to minimize any negative impact on her cardiovascular disease process. . This note was generated with [employer] software. It may contain incorrect words, spelling, and punctuation that were not noted in checking the note before signing.
--- NOTE | 2018-07-19 09:41 | PCM.DC.SUM ---
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 Her heart rate is controlled but is still A. fib on monitoring coordinator. On exam General: Alert, Oriented x3, Cooperative HEENT: Atraumatic, PERRLA, EOMI, Normocephalic Neck: Supple, No JVD, Negative Carotid Bruits Lungs: Clear to auscultation, air entry bilaterally equal Cardiovascular: No murmurs, Irregular Rate Abdomen: Bowel Sounds Present, Soft, Non Tender Extremities: No edema, Capillary Refill Less than 3 Seconds Skin: No rashes, No breakdown Musculoskeletal: No Tenderness to Palpation of Joints or Extremities Neurological: Cranial nerves II-XII grossly intact Psych/Mental Status: Normal Affect, Appropriate, Alert and oriented to time, place, person, mood and affect The patient is a 67 year F was admitted for heart palpitations, with flutter waves ongoing for about 1-2 weeks week. On evaluation found to be A. fib with RVR. Patient was admitted on telemetry. Patient did not initially responded with metoprolol and therefore started on IV Cardizem drip. Echo was reported as EF 60% with normal LV systolic function, TR 2+, RVSP 48 mm. Stress test normal. Cardizem drip was titrated and tapered off. Started on Cardizem CD 120 mg p.o. twice daily. Continue atenolol 50 mg daily. Patient was seen by pupil personnel services director Dr. Hinojosa. Patient is on Xarelto 20 mg daily. TSH mildly elevated 5.57, free T4 1.4, free T3 0.7 low. Free T3 was also low 1.6 in September 2017. As the patient has A. fib with RVR and free T4 normal, it was decided to keep her levothyroxine 125 mcg daily. Might be assessed as an outpatient if [place] Thyroid, combination of T4 and T3 is good for her. 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 Discharge medication reconciliation done and discussed with the patient. Discharge follow-up instructions discussed with the patient. Patient is to follow with Dr. Hinojosa in 3-4 weeks to consider for electrocardioversion if not chemically cardioverted. Total time spent, exact 35 minutes on discharge meds reconciliation, examination, review of imaging and blood test and discussion with the patient on follow-up instructions. Discharge Activity: Return to Normal Activity Call your doctor if you observe: Fever of 101 or Higher, Numbness or Tingling, Shortness of breath, Dizziness, Fainting spells, Chest pain Home Medications: Medications to take at Discharge Atorvastatin Calcium [Lipitor] 40 mg PO DAILY 08/16/17 Fluoxetine [Prozac] 20 mg PO DAILY 08/16/17 Losartan Potassium [Cozaar] 50 mg PO BID 08/16/17 acetaminophen 500 mg capsule 500 mg PO Q6H PRN 10/17/17 atenolol 50 mg tablet 25 mg PO DAILY 10/17/17 Ascorbic Acid [Vitamin C] 500 mg PO DAILY@0800 02/10/18 calcium carbonate 600 mg (1,500 mg)-vitamin D3 200 unit tablet 1 tab PO QDAY 04/24/18 levothyroxine 125 mcg tablet 125 mcg PO QDAY 04/24/18 Amlodipine [Norvasc] 2.5 mg PO QHS 07/17/18 Amlodipine [Norvasc] 5 mg PO DAILY 07/17/18 Bupropion HCl [Bupropion HCl Sr] 150 mg PO DAILY 07/17/18 Clindamycin [Cleocin] 150 mg PO DAILY 07/17/18 H.P. Acthar Gel 80 units SQ UD 07/17/18 Spironolactone 25 mg PO DAILY 07/17/18 Diltiazem CD [Cardizem CD] 120 mg PO Q12 #60 capsule 07/19/18 Rivaroxaban [Xarelto] 20 mg PO DAILY@1700 #30 tablet 07/19/18 Following Prescrptions Were Given to Patient: Diltiazem CD [Cardizem CD] 120 mg PO Q12 #60 capsule Rivaroxaban [Xarelto] 20 mg PO DAILY@1700 #30 tablet Primary Care Physician: Sandra Lopez MD [Primary Care Provider] - Please follow up with your Primary Care Physician in: in 2 weeks Please Follow Up With: Sami Hinojosa MD When: in 3-4 weeks for A fib to consier elective cardioversion Medical Necessity - Tobacco Use Smoking Status: Never smoker Tobacco Use: Non-smoker Meaningful Use Info Meaningful Use Diagnoses (Choose all that apply): None applicable Code Visit Inpatient E&M: 57980 Disch Hosp
== END 2018-07-19 11:41 | disposition home or self-care (01) | DRG 309 ==
LOC: ED 17:49 → PCU 18:48
PROVIDERS: Internal Medicine Cardiovascular Disease; Emergency Provider Emergency Medicine; Family Provider Internal Medicine; PCP Internal Medicine; Visit Provider Internal Medicine
DX: I48.1 Persistent atrial fibrillation (principal); N05.2 Unspecified nephritic syndrome with diffuse membranous glomerulonephritis; E03.9 Hypothyroidism, unspecified; F32.9 Major depressive disorder, single episode, unspecified; I05.1 Rheumatic mitral insufficiency; N18.3 Chronic kidney disease, stage 3 (moderate); E78.5 Hyperlipidemia, unspecified; I10 Essential (primary) hypertension
CPT/HCPCS: 36415; 71045; 78452; 80048; 80069; 80076; 82570; 83735; 84156; 84439; 84443; 84481; 84484; 85027; 85610; 85730; 93005; 93017; 93306; 99285; A9500; A4216; J2785

== ENCOUNTER → 2018-08-01 09:28 | Outpatient (CLI) | payer MEDICARE, OTHER, SELFPAY ==
[2018-08-01 11:00] LABS: BNP,B-Type NATRIURETIC PEPTIDE 511.7 pg/mL (0-100)
== END ==
PROVIDERS: Family Provider Internal Medicine; PCP Internal Medicine; Referring Provider Nurse Practitioner Family; Visit Provider Nurse Practitioner Family
DX: R06.02 Shortness of breath (principal)
CPT/HCPCS: 36415; 83880

== ENCOUNTER → 2018-08-20 08:56 | Outpatient (CLI) | payer MEDICARE, OTHER, SELFPAY ==
[2018-08-20 09:56] LABS: International Normalized Ratio 1.8; Prothrombin Time (Protime)PT. 20.5 SECONDS (11.7-14.9)
[2018-08-20 09:59] LABS: Creatinine, Urine (random) < 13.00 mg/dL (NO RANGE EST.); Protein, Urine (Random) 17.4 mg/dL (<11.9)
[2018-08-20 10:18] LABS: Anion Gap 7 (5-15); BUN 21 mg/dL (7-18); BUN/Creat Ratio 14.2 RATIO (10-20); Calcium,Total 9.4 mg/dL (8.5-10.1); Chloride 97 mmol/L (98-107); Creatinine, Serum 1.48 mg/dL (0.55-1.02); EST Glomerular Filtration Rate 37 mL/min (>60); Est Glom Filt Rate - Afr Amer 45 mL/min (>60); Glucose 96 mg/dL (74-106); Potassium 4.3 mmol/L (3.5-5.1); Sodium Level 138 mmol/L (136-145)
[2018-08-20 10:37] LABS: Color, Urine Yellow (Yellow); Urine Clarity Sl Cldy (Clear)
[2018-08-20 10:38] LABS: Leukocyte Esterase-Dipstick Negative /ul (Negative); Nitrite-Dipstick Negative (Negative)
[2018-08-20 10:39] LABS: Glucose, Dipstick NEGATIVE (Normal); Ketone-Dipstick Negative (Negative); Protein-Dipstick 30 mg/dl (Negative); Urine Bilirubin Dipstick Negative (Negative); Urine Urobilinogen Normal (Normal)
[2018-08-20 10:40] LABS: Occult Blood-Urine 10 /ul (Negative)
== END ==
PROVIDERS: Nurse Practitioner Family; Family Provider Internal Medicine; PCP Internal Medicine
DX: I05.1 Rheumatic mitral insufficiency (principal); R06.02 Shortness of breath; R60.9 Edema, unspecified; I48.91 Unspecified atrial fibrillation
CPT/HCPCS: 36415; 80048; 81002; 82570; 84156; 85610

== ENCOUNTER 2018-09-09 10:47 | Day surgery (SDC) | payer MEDICARE, OTHER, SELFPAY ==
[2018-09-08 15:00] VITALS: BMI 31.2
--- NOTE | 2018-09-09 12:17 | PCM.HP.BLA ---
Problem List (1) Atrial fibrillation Status: Acute Qualifiers: History and Physical Date of Admission: 09/09/18 HPI Details: GAMAL COLINDRES, is a 67 F who presents to the hospital for a scheduled cardioversion. She has a history of atrial fibrillation/flutter, mitral valve disease, hypertension, hyperlipidemia, and thyroid disorder. She continues to complain of SOB. This had improved with the addition of lasix but has returned when she decreased this medication. She has since not increased it back to 40 mg daily because she has not had any lower extremity edema. She restarted an injection for her Kidneys that was prescribed by her universal grinder set up operator. Allergies Penicillins [PCN] Allergy (Verified 08/01/18 08:32) Unknown lisinopril Adverse Reaction (Intermediate, Verified 08/01/18 08:32) cough Medications Atorvastatin Calcium [Lipitor] 40 mg PO DAILY 08/16/17 [History Confirmed 07/17/18] Fluoxetine [Prozac] 20 mg PO DAILY 08/16/17 [History Confirmed 07/17/18] Losartan Potassium [Cozaar] 50 mg PO BID 08/16/17 [History Confirmed 07/17/18] acetaminophen 500 mg capsule 500 mg PO Q6H PRN 10/17/17 [History Confirmed 07/17/18] atenolol 50 mg tablet 25 mg PO DAILY 10/17/17 [History Confirmed 07/17/18] Ascorbic Acid [Vitamin C] 500 mg PO DAILY@0800 02/10/18 [History Confirmed 07/17/18] calcium carbonate 600 mg (1,500 mg)-vitamin D3 200 unit tablet 1 tab PO QDAY 04/24/18 [History Confirmed 07/17/18] levothyroxine 125 mcg tablet 125 mcg PO QDAY 04/24/18 [History Confirmed 07/17/18] Amlodipine [Norvasc] 5 mg PO DAILY 07/17/18 [History Confirmed 07/17/18] Bupropion HCl [Bupropion HCl Sr] 150 mg PO DAILY 07/17/18 [History Confirmed 07/17/18] Clindamycin [Cleocin] 150 mg PO DAILY 07/17/18 [History Confirmed 07/17/18] H.P. Acthar Gel 80 units SQ UD 07/17/18 [History Confirmed 07/17/18] Spironolactone 25 mg PO DAILY 07/17/18 [History Confirmed 07/17/18] Diltiazem CD [Cardizem CD] 120 mg PO Q12 #60 cap 07/19/18 [Rx] Rivaroxaban [Xarelto] 20 mg PO DAILY@1700 #30 tab 07/19/18 [Rx] amlodipine 2.5 mg tablet 2.5 mg PO QHS 08/01/18 [History Confirmed 08/01/18] PFSH Medical History SOB (shortness of breath) (Acute) Edema (Acute) Rheumatic mitral regurgitation (Chronic) Hyperlipidemia (Chronic) Hypertension (Chronic) Hypothyroidism (Acute) CKD (chronic kidney disease) (Chronic) Surgical History History of carpal tunnel surgery (Resolved) History of dilatation and curettage (Resolved) History of hip replacement, total (Resolved) History of tubal ligation (Resolved) Family History Father Heart disease Social History Smoking Status: Never smoker alcohol intake: never substance use type: does not use ROS Const: Negative for fatigue, weakness, body ache, fever(s) or chills ENT: Negative for dizziness Chest Pain: No Palpitations: No Edema: Bilateral Muscle aches with walking: None Respiratory: Positive for SOB with activity; negative for SOB at rest, SOB orthopnea\SOB lying down or paroxysmal nocturnal dyspnea GI: Negative nausea, black,tarry stools, bright, red blood in stools or vomiting blood/hematemesis : Negative for hematuria or frequent nighttime urination/ nocturia Musc: Negative for muscle aches/ myalgia Skin: Negative non-healing lesions or rash Neuro: Negative for weakness, dizziness, lightheadedness, near syncope, syncope or orthostatic symptoms Endo: Negative for fatigue Allergy/Immunology: Negative for rash Cardiology Exam Appearance: cooperative, healthy appearing, comfortable, well developed and well groomed Nutritional Appearance: overweight Orientation: alert, awake and oriented x3 Head: normal to inspection, normocephalic and atraumatic Ears: hearing grossly normal bilaterally Nose: external nose normal Face and Sinus: face symmetric Mouth: oral mucosae normal Eyelids: eyelids normal Conjunctivae: conjunctivae normal Pupils: PERRL EOM: EOM intact bilaterally Neck: normal visual inspection Carotids: normal carotid upstroke Lungs Chest inspection: normal inspection of the chest and symmetric chest movement Auscultation: Bilateral: Clear to Auscultation Heart Palpation: normal PMI Rhythm: irregularly irregular Heart sounds: S1 normal, S2 normal and murmur; negative gallop or rub Murmur: Grade 3/6, holosystolic, apex and axilla GI: normal to inspection, bowel sounds present and soft Neuro General: alert, awake and oriented x3 Skin Skin: no rashes or lesions noted Extremities Pulses: Normal: Right Posterior Tibial Pulse, Left Posterior Tibial Pulse, Right Radial Pulse, Left Radial Pulse Lower Extremity Edema: +1: Bilateral Psych Psychological: normal affect Supplemental Info Echocardiogram from July 2018 showed an ejection fraction of 60%, mild concentric LVH, apical false tendon noted, severely enlarged left atrium, mildly enlarged right atrium, mild diffuse mitral thickening, mild focal mitral valve calcification of the anterior leaflet, moderately severe mitral valve insufficiency, moderate tricuspid valve insufficiency, mild diffuse aortic valve thickening, mild focal aortic valve calcification, mild pulmonic valve insufficiency, trivial pericardial effusion, no echocardiographic indication of cardiac tamponade, RVSP 48 mmHg, and evidence of diastolic dysfunction. Assessment & Plan 1. Persistent atrial fibrillation I48.1 Pt has remained in Atrial fibrillation, she continues to complain of SOB with exertion. Hopefully this will improve with her cardioversion that is scheduled for today. She will follow up in the office next week. Currently her HR is controlled and she has been anticoagulated with a Factor X a inhibitor. 2. Non-rheumatic mitral regurgitation I34.0 Her echocardiogram July 2018 showed ejection fraction of 60% moderate concentric LVH and moderately severe mitral valve insufficiency. This may be contributing to her lower extremity edema and shortness of breath. At this time she will continue current medications. 4. Pure hypercholesterolemia E78.00; E78.0 Lipid panel from May 2018 showed cholesterol: 155, HDL: 94, LDL: 54, and triglyceride: 36. She will continue with current statin medication. 5. Essential hypertension I10
--- NOTE | 2018-09-09 13:08 | OP.PCM_ITS ---
Problem List (1) Atrial fibrillation Status: Acute Qualifiers: Operative Report Date of Procedure: 09/09/18 Proceure: Synchronized Biphasic DC Cardioversion Indications: Atrial fibrillation Consent: Per the Patient Anesthesia: per Dr. Peace of pulmonology and critical care medicine with propofol 60 mg IV push total Procedure: Synchronized Biphasic DC Cardioversion: 200 J x1: Result: Sinus rhythm; PACs; PVCs Complications: no apparent complications This note was generated with [employer] dictation software. It may contain incorrect words, spelling, and punctuation that were not noted in checking the note before signing.
--- NOTE | 2018-09-09 13:08 | EKG12_ITS ---
Test Reason : CARDIOVERSION Blood Pressure : / mmHG Vent. Rate : 106 BPM Atrial Rate : 101 BPM P-R Int : 000 ms QRS Dur : 108 ms QT Int : 306 ms P-R-T Axes : 000 019 012 degrees QTc Int : 406 ms Atrial fibrillation Incomplete left bundle branch block Abnormal ECG Confirmed by MAMTA HAMMOND, SAMI ([id number]), editor trade journal MARILYN FULLER ([id number] on 09/18/2018 3:23:15 PM Referred By: Sami Oleary Confirmed By:SAMI OLEARY MD
--- NOTE | 2018-09-09 14:00 | PCM.OP.BLANK ---
Problem List (1) Atrial fibrillation Status: Acute Qualifiers: Atrial fibrillation type: persistent Qualified Code(s): I48.1 - Persistent atrial fibrillation (2) Depression Status: Chronic (3) Hyperlipidemia Status: Chronic Qualifiers: Hyperlipidemia type: pure hypercholesterolemia Qualified Code(s): E78.00 - Pure hypercholesterolemia, unspecified; E78.0 - Pure hypercholesterolemia (4) Hypertension Status: Chronic Qualifiers: Hypertension type: essential hypertension Qualified Code(s): I10 - Essential (primary) hypertension (5) Hypothyroidism Status: Chronic (6) Mitral valve insufficiency Status: Chronic Qualifiers: Cardiac valve disease etiology: nonrheumatic Qualified Code(s): I34.0 - Nonrheumatic mitral (valve) insufficiency Operative Report Date of Procedure: 09/09/18 - Conscious sedation CONSCIOUS SEDATION REPORT BRIEF HISTORY OF PRESENT ILLNESS: The patient is a 67-year-old female who presented to [facility] for an elective outpatient cardioversion due to underlying atrial fibrillation. The patient reports no PO intake since midnight. The patient does not have a history of obstructive sleep apnea, but did report snoring. The patient reports no history of smoking and COPD. The patient denies any recent constitutional symptoms such as fevers, chills, nausea or vomiting. The patient denies previous anesthetic complications. Last known EF 65% PHYSICAL EXAMINATION: VITAL SIGNS: Reviewed and were acceptable. GENERAL: The patient is a female, in no apparent distress, speaking in full sentences. HEENT: Normocephalic, atraumatic. Mucous membranes are moist and pink. Good mouth opening noted. Trachea is midline. Good neck mobility. MP IV CHEST: S1, S2 irregularly irregular. No murmurs, rubs or gallops were noted. LUNGS: Clear to auscultation bilaterally without appreciable wheezes, rales or rhonchi. ABDOMEN: Soft, nontender, nondistended. Positive bowel sounds. EXTREMITIES: There is no clubbing, cyanosis or edema. ASA Class: II DESCRIPTION OF PROCEDURE: After confirmation of informed consent, the patient's anesthesia plan was reviewed in detail. Propofol was chosen. Risks and benefits were reviewed and the patient agreed to proceed. At 12:45 PM, the patient was given 40 mg of propofol. The patient required a total of 60 mg of propofol throughout the procedure to achieve appropriate sedation. The patient achieved an appropriate level of sedation and received 1 attempt s synchronized cardioversion, at [address] Hinojosa at the bedside. This was successful in achieving normal sinus rhythm. The patient was monitored until 12:55 PM, at which time the patient reached their baseline mental status and function. The patient tolerated the procedure well. COMPLICATIONS: None ESTIMATED BLOOD LOSS: None RECOMMENDATIONS: Okay to recover in usual fashion. Code Visit [id number]: Other Procedure See Report - 81708 -10 minutes of conscious sedation
--- OUTSIDE RECORDS SUMMARY | 2018-10-22 02:32 | XMS RPT_ITS ---
:1950 Author Organization OHIP Support Name Relationship Address Phone R Unavailable Unavailable Unavailable NIETO, JENNIFIER Unavailable [address] + [place] [address] R Unavailable Unavailable Unavailable NIETO, JENNIFIER Unavailable [address] + [place] [address] R Unavailable Unavailable Unavailable NIETO, JENNIFIER Unavailable [address] + [place] [address] R Unavailable Unavailable Unavailable NIETO, JENNIFIER Unavailable [address] + [place] [address] [employer] Unavailable [address] + [place] [address] NIETO, JENNIFIER Unavailable [address] + [place] [address] [employer] Unavailable [address] + [place] [address] NIETO, JENNIFIER Unavailable [address] + [place] [address] [employer] Unavailable [address] + [place] [address] NIETO JENNIFIER Unavailable [address] + [place] [address] [employer] Unavailable [address] + [place] [address] NIETO, JENNIFIER Unavailable [address] + [place] [address] [employer] Unavailable [address] + [place] [address] NIETO JENNIFIER Unavailable [address] + [place] [address] [employer] Unavailable [address] + [place] [address] [place] JENNIFIER Unavailable [address] + [place] [address] [employer] Unavailable [address] + [place] [address] [place] JENNIFIER Un[address] + [place] [address] [employer] Unavailable [address] + [place] [address] [place] JENNIFIER Un[address] + [place] [address] [employer] Unavailable [address] + [place] [address] [place] JENNIFIER Un[address] + [place] [address] [employer] Unavailable [address] + [place] [address] [place] JENNIFIER Un[address] + [place] [address] [employer] Unavailable [address] + [place] [address] [place] JENNIFIER Un[address] + [place] [address] [employer] Unavailable [address] + [place] [address] [place] JENNIFIER Un[address] + [place] [address] [employer] Unavailable [address] + [place] [address] [place] JENNIFIER Un[address] + [place] [address] [employer] Unavailable [address] + [place] [address] [place] JENNIFIER Un[address] + [place] [address] [employer] Unavailable [address] + [place] [address] [place] JENNIFIER Un[address] + [place] [address] [employer] Unavailable [address] + [place] [address] [place] JENNIFIER Un[address] + [place] [address] [employer] Unavailable [address] + [place] [address] [place] JENNIFIER Un[address] + [place] [address] [employer] Unavailable [address] + [place] [address] [place] JENNIFIER Un[address] + [place] [address] [employer] Unavailable [address] + [place] [address] [place] JENNIFIER Un[address] + [place] [address] [employer] Unavailable [address] + [place] [address] [place] JENNIFIER Un[address] + [place] [address] [employer] Unavailable [address] + [place] [address] [place] JENNIFIER Un[address] + [place] [address] [employer] Unavailable [address] + [place] [address] [place] JENNIFIER Un[address] + [place] [address] [employer] Unavailable [address] + [place] [address] [place] JENNIFIER Un[address] + [place] [address] [employer] Unavailable [address] + [place] [address] NIETO, JENNIFIER Unavailable [address] + [place] [address] [employer] Unavailable [address] + [place] [address] NIETO, JENNIFIER Unavailable [address] + [place] [address] [employer] Unavailable [address] + [place] [address] NIETO, JENNIFIER Unavailable [address] + [place] [address] [employer] Unavailable [address] + [place] [address] NIETO, JENNIFIER Unavailable [address] + [place] [address] [employer] Unavailable [address] + [place] [address] NIETO, JENNIFIER Unavailable NA + [place], [place] ADRIANA AVILES Unavailable [address] + [place] [address] [employer] Unavailable [address] + [place] [address] [place] [facility] Unavailable [address] + [place] [address] Care Team Providers Name Role Phone GANTA, SHYLA Referring Unavailable OLDERSOHEILA (POLE TRUCK DRIVER) Attending Unavailable OLDER, SOHEILA (POLE TRUCK DRIVER) Referring Unavailable GANTA, SHYLA Attending Unavailable GANTA, SHYLA Referring Unavailable GANTA, SHYLA Referring Unavailable GANTA, SHYLA Attending Unavailable GANTA, SHYLA Referring Unavailable GANTA, SHYLA Referring Unavailable GANTA, SHYLA Attending Unavailable GANTA, SHYLA Referring Unavailable GANTA, SHYLA Referring Unavailable Taylor Green Attending Unavailable Sami Oleary Attending Unavailable Ganta, Shyla Referring Unavailable Ganta, Shyla Primary Care Unavailable Sami Oleary Attending Unavailable Sami Oleary Referring Unavailable Jaynata, Shyla Primary Care Unavailable PRUDENCIO DILL Attending Unavailable PRUDENCIO DILL Referring Unavailable Ganta, Shyla Primary Care Unavailable TEETEE MUÑOZ Consulting Unavailable Moodispaw, Sami Attending Unavailable Moodispaw, Sami Referring Unavailable PRUDENCIO DILL Attending Unavailable Ganta, Shyla Primary Care Unavailable PRUDENCIO DILL Referring Unavailable Ganta, Shyla Primary Care Unavailable PRUDENCIO DILL Attending Unavailable PRUDENCIO DILL Referring Unavailable Ganta, Shyla Primary Care Unavailable PRUDENCIO DILL Attending Unavailable PRUDENCIO DILL Referring Unavailable Ganta, Shyla Primary Care Unavailable PRUDENCIO DILL Attending Unavailable PRUDENCIO DILL Referring Unavailable PRUDENCIO DILL Attending Unavailable PRUDENCIO DILL Referring Unavailable Ganta, Shyla Primary Care Unavailable PRUDENCIO DILL Attending Unavailable PRUDENCIO DILL Referring Unavailable Ganta, Shyla Primary Care Unavailable Moodismilkaw, Sami Attending Unavailable Ganta, Shyla Referring Unavailable Moodispaw, Sami Attending Unavailable Moodispaw, Sami Referring Unavailable Ganta, Shyla Primary Care Unavailable PRUDENCIO DILL Consulting Unavailable PRUDENCIO DILL Attending Unavailable Ganta, Shyla Primary Care Unavailable PRUDENCIO DILL Referring Unavailable PRUDENCIO DILL Attending Unavailable PRUDENCIO DILL Referring Unavailable Ganta, Shyla Primary Care Unavailable PRUDENCIO DILL Attending Unavailable Ganta, Shyla Primary Care Unavailable Moodispaw, Sami Attending Unavailable Ganta, Shyla Referring Unavailable Ganta, Shyla Primary Care Unavailable Jopperi, Fermin Admitting Unavailable Moodispaw, Sami Consulting Unavailable Pedro, Kike Attending Unavailable Ganta, Shyla Primary Care Unavailable Jopperi, Fermin Attending Unavailable Jopperi, Fermin Admitting Unavailable Moodispaw, Sami Attending Unavailable Ganta, Shyla Primary Care Unavailable Moodispaw, Sami Consulting Unavailable Jopperi, Fermin Consulting Unavailable Jopperi, Fermin Admitting Unavailable Moodispaw, Sami Attending Unavailable Ganta, Shyla Primary Care Unavailable Moodisp[place], Sami Consulting Unavailable Pedro, Kike Consulting Unavailable Jopperi, Fermin Admitting Unavailable Ganta, Shyla Primary Care Unavailable Moodispaw, Sami Consulting Unavailable Pedro, Kike Attending Unavailable Pedro, Kike Consulting Unavailable Jopperi, Fermin Admitting Unavailable Rhiannon, [place] Attending Unavailable Ganta, Shyla Primary Care Unavailable Moodispaw, Sami Consulting Unavailable Pedro, Kike Consulting Unavailable Jopperi, Fermin Admitting Unavailable Pedro, Kike Attending Unavailable Ganta, Shyla Primary Care Unavailable Moodispaw, Sami Consulting Unavailable Pedro, Kike Consulting Unavailable Roof, Vikas H Attending Unavailable Ganta, Shyla Referring Unavailable Roof, Vikas H Attending Unavailable Roof, Vikas H Referring Unavailable Ganta, Shyla Primary Care Unavailable PRUDENCIO DILL Attending Unavailable Ganta, Shyla Primary Care Unavailable PRUDENCIO DILL Referring Unavailable Roof, Vikas H Consulting Unavailable Helio Jurado Attending Unavailable Pedro, Kike Referring Unavailable Moodispaw, Sami Attending Unavailable Ganta, Shyla Referring Unavailable Moodispaw, Sami Attending Unavailable Moodispaw, Sami Referring Unavailable Ganta, Shyla Primary Care Unavailable Taylor Leonard Attending Unavailable Moodispaw, Sami Referring Unavailable Ganta, Shyla Primary Care Unavailable Moodispaw, Sami Consulting Unavailable Andrea Peace Attending Unavailable Moodispaw, Sami Referring Unavailable Ganta, Shyla Primary Care Unavailable Moodispaw, Sami Consulting Unavailable Mood[place], Sami Attending Unavailable Ganta, Shyla Referring Unavailable PROBLEMS PROBLEMS DATE TYPE CONDITION / CODE ATTENDING STATUS SOURCE 09/17/2018 Unknown R06.02 - Shortness of [place], Active [place] breath / R06.02(ICD-10) [facility] Hospital Repository 09/17/2018 Unknown R60.9 - Edema, [place], Active [place] unspecified / [facility] R60.9(ICD-10) Hospital Repository 09/17/2018 Unknown I05.1 - Rheumatic [place], Active [place] mitral insufficiency / [facility] I05.1(ICD-10) Hospital Repository 09/17/2018 Unknown I10 - Essential [place], Active [place] (primary) hypertension [facility] / I10(ICD-10) Hospital Repository 09/17/2018 Unknown E78.5 - Hyperlipidemia, [place], Active [place] unspecified / [facility] E78.5(ICD-10) Hospital Repository 09/17/2018 Unknown I48.1 - Persistent [place], Active [place] atrial fibrillation / 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 / Repository N05.2(ICD-10) 07/17/2018 Unknown N03.9 - Chronic PRUDENCIO DILL Active [place] nephritic syndrome with Community unspecified morphologic Hospital changes / N03.9(ICD-10) Repository 07/17/2018 Unknown N18.2 - Chronic kidney PRUDENCIO DILL Active [place] disease, stage 2 (mild) Community / N18.2(ICD-10) Hospital Repository 06/09/2018 Unknown R80.9 - Proteinuria, PRUDENCIO DILL Active [place] unspecified / Community R80.9(ICD-10) Hospital Repository 03/28/2018 Active Encounter for screening NA Active [place] mammogram for malignant Clinic Main neoplasm of breast / [place] Z12.31(ICD-10) Repository 03/07/2018 Unknown N18.1 - Chronic kidney PRUDENCIO DILL Active [place] disease, stage 1 / Community N18.1(ICD-10) Hospital Repository 06/11/2018 Unknown N18.3 - Chronic kidney PRUDENCIO DILL Active [place] disease, stage 3 Community (moderate) / Hospital N18.3(ICD-10) Repository 07/08/2017 Active Nephrotic syndrome with NA Active [facility] unspecified morphologic Clinic Main changes / N04.9(ICD-10) [place] Repository 07/08/2017 Active Mixed hyperlipidemia / NA Active [facility] E78.2(ICD-10) Clinic Main [place] Repository 10/29/2017 Active Hypothyroidism, NA Active [place] unspecified / [facility] Main E03.9(ICD-10) [place] Repository 10/28/2017 Active Unknown / UNK(Unknown) SHYLA MORALES Active 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 NA Active [place] (current) drug therapy Clinic Main / Z79.899(ICD-10) [place] Repository 10/01/2017 Active Anemia, unspecified / NA Active [place] D64.9(ICD-10) Clinic Main [place] Repository 10/01/2017 Active Abnormal results of NA Active [place] thyroid function Clinic Main studies / R94.6(ICD-10) [place] Repository 10/01/2017 Active Essential (primary) NA Active [place] hypertension / Clinic Main I10(ICD-10) [place] Repository 10/01/2017 Active Localized edema / NA Active [place] R60.0(ICD-10) Clinic Main [place] Repository PROCEDURES PROCEDURES No Procedure Records FoundRESULTS RESULTS 12 LEAD ELECTROCARDIOGRAM Observed: 09/18/2018 Status: F Source: [place] 3:23 PM [facility] REPOSITORY [facility] Cardiovascular Services [address] [place] [address] 12 Lead EKG 09/09/18 1109 MR#: [id number] Acct: [id number] Name: SUSANNE COLINDRES Rep #: [id number] : 1950 67 From: Sami Oleary MD Attending Dr: Sami Oleary MD Status: [facility] Ordering Dr: Sami Oleary MD Date: 09/09/18 Location: [facility] Sex: F C Admitted: Test Reason : CARDIOVERSION Blood Pressure : / mmHG Vent. Rate : 106 BPM Atrial Rate : 101 BPM P-R Int : 000 ms QRS Dur : 108 ms QT Int : 306 ms P-R-T Axes : 000 019 012 degrees QTc Int : 406 ms Atrial fibrillation Incomplete left bundle branch block Abnormal ECG Confirmed by SAMI OLEARY MD ([id number]), editorial project manager MARILYN FULLER ([id number]) on 09/18/2018 3:23:15 PM Referred By: Sami Oleary Confirmed By:SAMI OLEARY MD 09/18/18 1523 Date Sami Oleary MD CC: Shyla Morales MD; Sami Oleary MD Signed 12 LEAD EKG PERFORMED Observed: 09/16/2018 Status: F Source: [place] BY BMS 9:47 AM [facility] REPOSITORY [facility] [address] [place] [address] 12 Lead EKG performed by BMS 09/16/18945 MR#: [id number] Acct: [id number] Name: SUSANNE COLINDRES Rep #: [id number] : 1950 67 From: Sami Oleary MD Attending Dr: Sami Oleary MD Status: DEP AMB Ordering Dr: Sami Oleary MD Date: 09/16/18 [facility] Sex: F C Admitted: BMS/12 Lead EKG performed by [facility] ECG Report Interpretation Sinus Rhythm Left atrial enlargement. Electronically signed on 09/17/2018 at 17:54 by Sami Oleary[employer] Version [id number] 09/17/18 1756 Date Sami Oleary MD CC: Shyla Morales MD Date Dictated: 09/16/18945 Date Transcribed: 09/16/18945 Shot Man: PM Signed LIPID PANEL, BASIC Collected: 09/15/2018 Status: F Source: [place] 11:20 AM [facility] [place] REPOSITORY TYPE CODE TESTS RESULT OUT OF REFERENCE UNITS RANGE LAB CHOL <200 mg/dL Cholesterol 170 Result Comment: <200 mg/dL, Desirable 200-239 mg/dL, Borderline high >239 mg/dL, High LAB TRIGLY <150 mg/dL Triglyceride 91 Result Comment: <150 mg/dL, Normal 150-199 mg/dL, Borderline high 200-499 mg/dL, High >499 mg/dL, Very high LAB HDL >39 mg/dL HDL-Cholesterol 84 Result Comment: 40-59 mg/dL, Acceptable >59 mg/dL, High: Negative risk factor for coronary heart disease <40 mg/dL, Low: Positive risk factor for coronary heart disease LAB LDL <100 mg/dL LDL-Cholesterol 68 Result Comment: <100 mg/dL, Optimal 100-129 mg/dL, Near optimal/above optimal 130-159 mg/dL, Borderline high 160-189 mg/dL, High >189 mg/dL, Very high Secondary prevention optimal LDL Cholesterol levels are recommended to be < 70 mg/dL LAB NONHDL <130 mg/dL Non HDL Cholesterol 86 Result Comment: <130 mg/dL, Optimal 130-159 mg/dL, Near optimal/above optimal 160-189 mg/dL, Borderline high 190-219 mg/dL, High >219 mg/dL, Very high Secondary prevention optimal non HDL Cholesterol levels are recommended to be < 100 mg/dL LAB FT hrs Fasting Time 15 LAB VLDL <30 mg/dL VLDL Cholesterol 18 LAB TCHDL <5.10 TC:HDL Ratio 2.02 LAB LDLHDL <2.54 LDL:HDL Ratio 0.81 Result Comment: Reference: 1. National Cholesterol Education Program ATP III Guideline At-A-Glance Quick Desk Reference: National Heart, Lung, and Blood [place]. National Institutes of Health. 2001: NIH Publication No. 01-3305. 2. An International Atherosclerosis Society position paper: global recommendations for the management of dyslipidemia: executive summary, Atherosclerosis. 2014: 232(2):410-413. Performed By: #### LIPB, TSH, HBA1C #### [facility] [address] [address] TSH Collected: 09/15/2018 Status: F Source: [place] 11:20 AM [facility] REPOSITORY TYPE CODE TESTS RESULT OUT OF RANGE REFERENCE UNITS LAB TSH 0.400-5.500 uU/mL High TSH 26.890 Performed By: #### LIPB, TSH, HBA1C #### [facility] [employer] [address] [address] HEMOGLOBIN A1C Collected: 09/15/2018 Status: F Source: [place] 11:20 AM [facility] REPOSITORY TYPE CODE TESTS RESULT OUT OF REFERENCE UNITS RANGE LAB HGBA1C 4.3-5.6 % Hemoglobin A1c 5.4 Result Comment: English Diabetes Association guidelines indicate that patients with HgbA1c in the range 5.7-6.4% are at increased risk for development of diabetes, and intervention by lifestyle modification may be beneficial. HgbA1c greater or equal to 6.5% is considered diagnostic of diabetes. LAB HBA0 mg/dL Est. Average Glucose 108 Result Comment: eAG: (Estimated average glucose) is a calculated value from HgbA1c and is inbound sales representative of the average blood glucose level in the last 2-3 month period. Performed By: #### LIPB, TSH, HBA1C #### [facility] [address] [place], [place] [address] BASIC METABOLIC PANL Collected: 09/15/2018 Status: F Source: [place] 11:20 AM [facility] [place] REPOSITORY TYPE CODE TESTS RESULT OUT OF REFERENCE UNITS RANGE LAB GLU 74-99 mg/dL Glucose 83 Result Comment: The English Diabetes Association (ADA) provides guidance for cutoff values for fasting glucose and random glucose. The ADA defines fasting as no caloric intake for at least 8 hours. Fas ting plasma glucose results between 100 to 125 mg/dL indicate increased risk for diabetes (prediabetes). Fasting plasma glucose results greater than or equal to 126 mg/dL meet the criteria for diagnosis of diabetes. In the absence of unequivocal hyperglycemia, results should be confirmed by repeat testing. In a patient with classic symptoms of hyperglycemia or hyperglycemic crisis, random plasma glucose results greater than or equal to 200 mg/dL meet the criteria for diagnosis of diabetes. Reference: Standards of Medical Care in Diabetes 2016, English Diabetes Association. Diabetes Care. 2016.39(Suppl 1). LAB BUN 7-21 mg/dL BUN 15 LAB CRET 0.58-0.96 mg/dL Creatinine High 1.09 LAB NA 136-144 mmol/L Sodium 140 LAB K 3.7-5.1 mmol/L Potassium 4.6 LAB CL 97-105 mmol/L Chloride 101 LAB CO2 22-30 mmol/L CO2 27 LAB AGAP 9-18 mmol/L Anion Gap 12 LAB CA 8.5-10.2 mg/dL Calcium, Total 9.8 LAB GFRAA eGFR- Amer. >60 LAB GFRNAA . eGFR-All Other Races 50 Result Comment: eGFR (Estimated GFR) Units of measure: mL/min/1.73 meters squared eGFR is derived from the reexpressed MDRD Study equation using the following parameters: serum creatinine, age, gender and race. The creatinine assay has been calibrated to be traceable to IDMS. An eGFR <60 mL/min/1.73m2 for >3 months is consistent with chronic kidney disease. Refer to KDOQI guidelines for clinical interpretation. In patients with unstable renal function, e.g. those with acute kidney injury, the eGFR may not accurately reflect actual GFR. Performed By: #### BMP #### [facility] [address] [place], [place] [address] PROGRESS Observed: 09/15/2018 Status: COMPLETED Source: [place] 10:19 AM [facility] REPOSITORY HNO ID: [id number] Author: Shyla Morales Service: (none) Author Type: Physician Type: Progress Notes Filed: 09/15/2018 5:38 PM Note Text: Reason for Visit Patient presents with: Established Patient: 6 month follow up- hospital follow up a alan Susanne Colindres is a 67 year old female who presents here today for Above Complaints.. Health Maintenance BP CONTROLLED (<130/80) PNEUMOVAX AGE 65 AND OVER WITH 5YR LOOKBACK(1) PAP EVERY 3 YEARS (65-80 YEARS OLD) INFLUENZA(1) HEMOGLOBIN/HEMATOCRIT HPI The patient is on actar for her nephrotic syndrome, she was spilling a lot of protein, and now is is much less. She has side effects with facial puffiness, swelling of the hands, and we think that it may have contributed to the afib, she also has some thickening of the heart valve. Was admitted on July 17, for afib, she was cardioverted at that time , is currently on xeralto. Echo done at that time showed EF of 60 with concentric LVH, mitral valve was thickened, there was diastolic dysfunction, Right heart was 48 mm hg. Reviewed medications and updated them. For afib she is taking atenolol. Has hypothyroidism on the current medication she is doing well. Currently no signs of hypothyoidism. No constipation, depression , low energy or dryness of skin. No problem-specific Assessment AND Plan notes found for this encounter. PAST MEDICAL HISTORY Diagnosis Date - Circumscribed scleroderma - Dysthymic disorder Depression (non-psychotic) - Female stress incontinence - PMH - PAST MEDICAL HISTORY OF knee and sciatic nerve - Postmenopausal atrophic vaginitis - Rheumatic heart disease, unspecified Rheumatic fever Murmur and treated with PCN for 18 years - Symptomatic menopausal or female climacteric states - Unspecified hypothyroidism Hypothyroidism - Urgency of urination PAST SURGICAL HISTORY Procedure Laterality Date - COLONOSCOP W/ OR W/O [facility] 11/02/2013 Colonoscopy - [facility], DIAG AND/OR THERAPEUTIC prior to 1994 Dilation AND curettage/polypectomy - LIGATE FALLOPIAN TUBE 1979 Tubal ligation - TOTAL HIP REPLACEMENT 10/16/2011 Hip replacement, total right - [facility] Dr. Schofield - FAMILY HISTORY Problem Relation Age of Onset - Thyroid Father - Heart Father Bypass - Thyroid Mother - Thyroid Sister - Thyroid Sister - Breast Cancer Maternal Aunt - Breast Cancer Maternal Aunt Social History Substance Use Topics - Smoking status: Never Smoker - Smokeless tobacco: Never Used - Alcohol use No Past medical history, appointments, medications, allergies reviewed. Pertinent Lab/Diagnostic Studies are reviewed and discussed today Current Outpatient Prescriptions: - SYNTHROID 125 mcg tablet - acetaminophen (TYLENOL EXTRA STRENGTH) 500 mg tablet - atenolol (TENORMIN) 25 mg tablet - FLUoxetine (PROZAC) 20 mg capsule - buPROPion SR (ZYBAN SR; WELLBUTRIN SR) 150 mg 12 hr tablet - atorvastatin (LIPITOR) 40 mg tablet - losartan (COZAAR) 50 mg tablet - spironolactone (ALDACTONE) 25 mg tablet - rivaroxaban (XARELTO) 20 mg tablet - levothyroxine (LEVOXYL) 125 mcg tablet - COMPOUNDED PRESCRIPTION - Omeprazole (PRILOSEC) 40 mg capsule - CALCIUM CARBONATE/VITAMIN D3 (CALCIUM + VITAMIN D ORAL) Review of Systems CONSTITUTIONAL: No fevers, chills night sweats, unintended weight loss CARDIOVASCULAR: No chest pain, dyspnea, palpitations, orthopnea, PND, ankle edema. PULM: No dyspnea, unexplained cough. GI: No dysphagia/odynophagia, problematic reflux, constipation, diarrhea, changes in stool habits, hematochezia, melena. : No new urinary complaints, including dysuria, gross hematuria or pyuria. NEURO: No new balance problems, peripheral weakness/paresthesias or numbness of concern. Physical Exam BP 132/74 (BP Site: Left Arm, BP Position: Sitting, BP Cuff Size: Large Adult) Pulse 71 Resp 12 Ht 154.9 cm (5' 1) Wt 70.8 kg (156 lb) LMP 02/25/2008 SpO2 98% BMI 29.48 kg/m? General appearance: Well appearing, alert, in no acute distress, well nourished. Skin: Skin color, texture, turgor normal, no suspicious rashes or lesions Head: Normocephalic, no masses, lesions, tenderness or abnormalities Eyes: Anicteric sclera. Pupils are equally round and reactive to light. Extraocular movements are intact. Lungs: Lungs clear to auscultation. No wheezing, rhonchi, rales Heart: RRR without murmur, gallop, or rubs. Extremities: No deformities, edema, skin discoloration, clubbing or cyanosis. Good capillary refill. ASSESSMENT/PLAN: 1. Nephrotic syndrome - ICD9: 581.9, ICD10: N04.9 (primary diagnosis) See hpi 2. Persistent atrial fibrillation (HCC) - ICD9: 427.31, ICD10: I48.1 See hpi 3. Elevated blood sugar - ICD9: 790.29, ICD10: R73.9 - HGB A1C 4. Acquired hypothyroidism - ICD9: 244.9, ICD10: E03.9 - Instructed patient on importance of taking on an empty stomach either first thing in the morning or at bedtime. - TSH BLD will have to check lipids today SHYLA MORALES MD CNOV Observed: 09/15/2018 Status: COMPLETED Source: [place] 9:40 AM [facility] REPOSITORY Office Visit (INTMWS) SUSANNE COLINDRES ([id number]) 1950 F Date Time Provider Department 09/15/18 9:40 AM SHYLA MORALES INTMWS During your visit today, we recorded the following information about you: Pulse Respiration Blood pressure Weight 71/minute 12/minute 132/74 70.8 kg Height 1.549 m Epifanio Calles LPN 09/15/2018 10:24 AM Signed Patient stated she seeing . SHYLA MORALES MD 09/15/2018 5:38 PM Signed Reason for Visit Patient presents with: Established Patient: 6 month follow up- hospital follow up a alan Susanne Colindres is a 67 year old female who presents here today for Above Complaints.. Health Maintenance BP CONTROLLED (<130/80) PNEUMOVAX AGE 65 AND OVER WITH 5YR LOOKBACK(1) PAP EVERY 3 YEARS (65-80 YEARS OLD) INFLUENZA(1) HEMOGLOBIN/HEMATOCRIT HPI The patient is on actar for her nephrotic syndrome, she was spilling a lot of protein, and now is is much less. She has side effects with facial puffiness, swelling of the hands, and we think that it may have contributed to the afib, she also has some thickening of the heart valve. Was admitted on July 17, for afib, she was cardioverted at that time , is currently on xeralto. Echo done at that time showed EF of 60 with concentric LVH, mitral valve was thickened, there was diastolic dysfunction, Right heart was 48 mm hg. Reviewed medications and updated them. For afib she is taking atenolol. Has hypothyroidism on the current medication she is doing well. Currently no signs of hypothyoidism. No constipation, depression , low energy or dryness of skin. No problem-specific Assessment AND Plan notes found for this encounter. PAST MEDICAL HISTORY Diagnosis Date - Circumscribed scleroderma - Dysthymic disorder Depression (non-psychotic) - Female stress incontinence - PMH - PAST MEDICAL HISTORY OF knee and sciatic nerve - Postmenopausal atrophic vaginitis - Rheumatic heart disease, unspecified Rheumatic fever Murmur and treated with PCN for 18 years - Symptomatic menopausal or female climacteric states - Unspecified hypothyroidism Hypothyroidism - Urgency of urination PAST SURGICAL HISTORY Procedure Laterality Date - COLONOSCOP W/ OR W/O [facility] 11/02/2013 Colonoscopy - [facility], DIAG AND/OR THERAPEUTIC prior to 1994 Dilation AND curettage/polypectomy - LIGATE FALLOPIAN TUBE 1979 Tubal ligation - TOTAL HIP REPLACEMENT 10/16/2011 Hip replacement, total right - [facility] Dr. Schofield - FAMILY HISTORY Problem Relation Age of Onset - Thyroid Father - Heart Father Bypass - Thyroid Mother - Thyroid Sister - Thyroid Sister - Breast Cancer Maternal Aunt - Breast Cancer Maternal Aunt Social History Substance Use Topics - Smoking status: Never Smoker - Smokeless tobacco: Never Used - Alcohol use No Past medical history, appointments, medications, allergies reviewed. Pertinent Lab/Diagnostic Studies are reviewed and discussed today Current Outpatient Prescriptions: - SYNTHROID 125 mcg tablet - acetaminophen (TYLENOL EXTRA STRENGTH) 500 mg tablet - atenolol (TENORMIN) 25 mg tablet - FLUoxetine (PROZAC) 20 mg capsule - buPROPion SR (ZYBAN SR; WELLBUTRIN SR) 150 mg 12 hr tablet - atorvastatin (LIPITOR) 40 mg tablet - losartan (COZAAR) 50 mg tablet - spironolactone (ALDACTONE) 25 mg tablet - rivaroxaban (XARELTO) 20 mg tablet - levothyroxine (LEVOXYL) 125 mcg tablet - COMPOUNDED PRESCRIPTION - Omeprazole (PRILOSEC) 40 mg capsule - CALCIUM CARBONATE/VITAMIN D3 (CALCIUM + VITAMIN D ORAL) Review of Systems CONSTITUTIONAL: No fevers, chills night sweats, unintended weight loss CARDIOVASCULAR: No chest pain, dyspnea, palpitations, orthopnea, PND, ankle edema. PULM: No dyspnea, unexplained cough. GI: No dysphagia/odynophagia, problematic reflux, constipation, diarrhea, changes in stool habits, hematochezia, melena. : No new urinary complaints, including dysuria, gross hematuria or pyuria. NEURO: No new balance problems, peripheral weakness/paresthesias or numbness of concern. Physical Exam BP 132/74 (BP Site: Left Arm, BP Position: Sitting, BP Cuff Size: Large Adult) Pulse 71 Resp 12 Ht 154.9 cm (5' 1) Wt 70.8 kg (156 lb) LMP 02/25/2008 SpO2 98% BMI 29.48 kg/m? General appearance: Well appearing, alert, in no acute distress, well nourished. Skin: Skin color, texture, turgor normal, no suspicious rashes or lesions Head: Normocephalic, no masses, lesions, tenderness or abnormalities Eyes: Anicteric sclera. Pupils are equally round and reactive to light. Extraocular movements are intact. Lungs: Lungs clear to auscultation. No wheezing, rhonchi, rales Heart: RRR without murmur, gallop, or rubs. Extremities: No deformities, edema, skin discoloration, clubbing or cyanosis. Good capillary refill. ASSESSMENT/PLAN: 1. Nephrotic syndrome - ICD9: 581.9, ICD10: N04.9 (primary diagnosis) See hpi 2. Persistent atrial fibrillation (HCC) - ICD9: 427.31, ICD10: I48.1 See hpi 3. Elevated blood sugar - ICD9: 790.29, ICD10: R73.9 - HGB A1C 4. Acquired hypothyroidism - ICD9: 244.9, ICD10: E03.9 - Instructed patient on importance of taking on an empty stomach either first thing in the morning or at bedtime. - TSH BLD will have to check lipids today MD SHYLA TYLER MD 09/15/2018 10:38 AM Written The patient is on actar for her nephrotic syndrome, she was spilling a lot of protein, and now is is much less. She has side effects with facial puffiness, swelling of the hands, and we think that it may have contributed to the afib, she also has some thickening of the heart valve. Was admitted on July 17, for afib, she was cardioverted at that time , is currently on xeralto. Echo done at that time showed EF of 60 with concentric LVH, mitral valve was thickened, there was diastolic dysfunction, Right heart was 48 mm hg. Referring Provider: SHYLA MORALES [[id number]] Allergies As of Date: 09/15/2018 Noted Allergy Reaction LISINOPRIL 03/03/2009 3 - Cough PENICILLINS 01/31/2006 Comments: yeast infection Date Reviewed: 10/28/2017 Reviewed by: Epifanio Calles LPN - Fully Assessed Reason for Visit: Established Patient [175] Cmt: 6 month follow up- hospital follow up a fib Primary Visit Diagnosis:Nephrotic syndrome [N04.9] Other Visit Diagnoses:Persistent atrial fibrillation (HCC) [I48.1] Elevated blood sugar [R73.9] Acquired hypothyroidism [E03.9] Other hyperlipidemia [E78.49] Order(s):HGB A1C [CJYRZ8R] Order #: [id number] FUTURE corticotropin (ACTHAR HP) 80 unit/mL injectable gelAs prescribedDisp: Rfl: TSH BLD [SQTSH] Order #: [id number] FUTURE SYNTHROID 125 mcg tabletTake 1 tablet by mouth once daily. Take on empty stomach. For ThyroidDisp: 60 tabletRfl: 3 LIPID PANEL BASIC [SQLIPB] Order #: [id number] FUTURE Prescriptions as of 09/15/2018 Sig: ACETAMINOPHEN 500 MG TABLET Take 1 tablet by mouth every * SYNTHROID 125 MCG TABLET Take 1 tablet by mouth once d* ATENOLOL 25 MG TABLET Take 1 tablet by mouth once d* FLUOXETINE 20 MG CAPSULE Take 1 capsule by mouth once * BUPROPION HCL SR 150 MG TABLE* Take 1 tablet by mouth twice * ATORVASTATIN 40 MG TABLET Take 1 tablet by mouth once d* LOSARTAN 50 MG TABLET Take 1 tablet by mouth twice * SPIRONOLACTONE 25 MG TABLET Take 1 tablet by mouth once d* RIVAROXABAN 20 MG TABLET Take 1 tablet by mouth daily * CORTICOTROPIN 80 UNIT/ML INJE* As prescribed COMPOUNDED PRESCRIPTION Consult endo: Dr. Jorge Maher* OMEPRAZOLE 40 MG CAPSULE,QASIM* Take 1 capsule by mouth once * Patient not taking: Reported on 03/28/2018 * CALCIUM + VITAMIN D ORAL Take by mouth twice daily. Medication notes this encounter ATENOLOL 25 MG TABLET >> Epifanio Calles LPN 09/15/2018 10:00 AM >> EPIFANIO CALLES LPN SatSep 15, 2018 10:00 AM Takes 25 mg twice daily FLUOXETINE 20 MG CAPSULE >> Epifanio Calles LPN 09/15/2018 10:02 AM >> EPIFANIO CALLES LPN SatSep 15, 2018 10:02 AM taking as needed >> Epifanio Calles LPN 09/15/2018 10:03 AM >> EPIFANIO CALLES LPN SatSep 15, 2018 10:03 AM Correction taking 20mg once daily BUPROPION HCL SR 150 MG TABLET,12 HR SUSTAINED-RELEASE >> Epifanio Calles LPN 09/15/2018 10:01 AM >> EPIFANIO CALLES LPN SatSep 15, 2018 10:01 AM taking only once daily LEVOTHYROXINE 125 MCG TABLET >> Epifanio Calles LPN 09/15/2018 10:05 AM >> EPIFANIO CALLES LPN SatSep 15, 2018 10:05 AM Patient has to take name brand- CARLOS OMEPRAZOLE 40 MG CAPSULE,DELAYED RELEASE >> Epifanio Calles LPN 09/15/2018 10:06 AM >> EPIFANIO CALLES LPN SatSep 15, 2018 10:06 AM not taking Problem List As Of Date 09/15/2018 Noted Resolved OSTEOCHONDROPATHY NOS [M93.90] INVALID FOR* ILEALTIBIAL BAND FRICTION SYND [M62.9] INVALID FOR* SCREENING MAL NEOP-CERVIX [Z12.4] INVALID FOR* SYMPTOMATIC FEMALE CLIMACTERIC STATE [N95.1] INVALID FOR* STRICTURE OF CERVIX [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 Major depressive disorder in partial remission *INVALID FOR* Hypertension [I10] INVALID FOR* More... Hypothyroid [E03.9] INVALID FOR* More... Lichen sclerosus [L90.0] INVALID FOR* MDD (major depressive disorder) (HCC) [F32.9] INVALID FOR* Depression with anxiety [F41.8] INVALID FOR* More... Moderate mitral regurgitation [I34.0] INVALID FOR* Pulmonary hypertension, secondary (HCC) [AND535*INVALID FOR* Proteinuria [R80.9] INVALID FOR* Stage 3 chronic kidney disease [N18.3] INVALID FOR* More... Dependent edema [R60.9] INVALID FOR* Nephrotic syndrome [N04.9] INVALID FOR* More... Persistent atrial fibrillation (HCC) [I48.1] INVALID FOR* More... Visit Notes: >> Epifanio Calles LPN Mon Sep 15, 2018 10:08 AM Status: Signed Patient stated she seeing . Prescriptions ordered this encounter Disp Refills Start End CORTICOTROPIN 80 UNIT/ML INJECTION G* 09/15/2018 Class: Med Update Sig: As prescribed SYNTHROID 125 MCG TABLET 60 t* 3 09/15/2018 Route: ORAL Sig: Take 1 tablet by mouth once daily. Take on empty stomach. For Thyroid Medications Discontinued During This Encounter levothyroxine (LEVOXYL) 125 mcg tabl* 90 t* 3 03/28/2018 09/15/2018 Sig: Take on empty stomach. For thyroid 1 pill all days of the week except half on saturday Disc: Reason for discontinue is not on file. SYNTHROID 125 mcg tablet 30 t* 09/15/2018 09/15/2018 Class: Historical Med Route: ORAL Sig: Take 1 tablet by mouth once daily. Take on empty stomach. For Thyroid Disc: Reason for discontinue is not on file. Encounter Status:Closed by SHYLA MORALES MD on 09/15/18 OFFICE VISIT REPORT Observed: 09/10/2018 Status: F Source: [place] 8:[address] [facility] Jose Brewer TONEY [place] [id number] OFFICE VISIT Date of Service: 08/26/18 MR#: [id number] Acct: [id number] Patient: SUSANNE COLINDRES Rep #: [id number] : 1950 Provider: Sami Oleary MD Age/Sex: 67/F [facility] [facility] Status: Signed Intake Intake Visit Reasons: DCCV Chief Complaint: SOLUMEDROL Allergies Penicillins [PCN] Allergy (Verified 08/01/18 08:32) Unknown lisinopril Adverse Reaction (Intermediate, Verified 08/01/18 08:32) cough Medications Atorvastatin Calcium [Lipitor] 40 mg PO DAILY 08/16/17 [History Confirmed 09/08/18] Fluoxetine [Prozac] 20 mg PO DAILY 08/16/17 [History Confirmed 09/08/18] Losartan Potassium [Cozaar] 50 mg PO BID 08/16/17 [History Confirmed 09/08/18] acetaminophen 500 mg capsule 500 mg PO Q6H PRN 10/17/17 [History Confirmed 09/08/18] Ascorbic Acid [Vitamin C] 500 mg PO DAILY@0800 02/10/18 [History Confirmed 09/08/18] calcium carbonate 600 mg (1,500 mg)-vitamin D3 200 unit tablet 1 tab PO QDAY 04/24/18 [History Confirmed 09/08/18] levothyroxine 125 mcg tablet 125 mcg PO QDAY 04/24/18 [History Confirmed 09/08/18] Bupropion HCl [Bupropion HCl Sr] 150 mg PO DAILY 07/17/18 [History Confirmed 09/08/18] Clindamycin [Cleocin] 150 mg PO DAILY 07/17/18 [History Confirmed 09/08/18] H.P. Acthar Gel 80 units SQ UD 07/17/18 [History Confirmed 09/08/18] Spironolactone 25 mg PO DAILY 07/17/18 [History Confirmed 09/08/18] atenolol 50 mg tablet 50 mg PO DAILY tab 08/08/18 [History Confirmed 09/08/18] rivaroxaban 20 mg tablet 20 mg PO DAILY@1700 #30 tab 08/18/18 [Rx Confirmed 09/08/18] Amlodipine [Norvasc] 2.5 mg PO DAILY 09/08/18 [History Confirmed 09/08/18] Amlodipine [Norvasc] 5 mg PO QHS 09/08/18 [History Confirmed 09/08/18] Diltiazem HCl [Cardizem] 120 mg PO DAILY 09/08/18 [History Confirmed 09/08/18] Nursing Note Patient in for review instructions for upcoming DCCV. Questions answered. 09/10/18 0816 <Electronically signed by Vikas GALDAMEZ> Date Vikas GALDAMEZ Cosigner Signature: Date (if applicable) CC: Taylor Green OPERATIVE REPORT Observed: 09/10/2018 Status: F Source: [place] 5:47 AM [facility] REPOSITORY [facility] Medical Records Department [address] [place] [address] Operative Report 09/09/18 1400 MR#: [id number] Acct: [id number] Name: SUSANNE COLINDRES Rep #: [id number] : 1950 67 From: Andrea Peace MD PCP: Shyla Morales MD Status: [facility] Location: [facility] Problem List (1) Atrial fibrillation Status: Acute Qualifiers: Atrial fibrillation type: persistent Qualified Code(s): I48.1 - Persistent atrial fibrillation (2) Depression Status: Chronic (3) Hyperlipidemia Status: Chronic Qualifiers: Hyperlipidemia type: pure hypercholesterolemia Qualified Code(s): E78.00 - Pure hypercholesterolemia, unspecified; E78.0 - Pure hypercholesterolemia (4) Hypertension Status: Chronic Qualifiers: Hypertension type: essential hypertension Qualified Code(s): I10 - Essential (primary) hypertension (5) Hypothyroidism Status: Chronic (6) Mitral valve insufficiency Status: Chronic Qualifiers: Cardiac valve disease etiology: nonrheumatic Qualified Code(s): I34.0 - Nonrheumatic mitral (valve) insufficiency Operative Report Date of Procedure: 09/09/18 - Conscious sedation CONSCIOUS SEDATION REPORT BRIEF HISTORY OF PRESENT ILLNESS: The patient is a 67-year-old female who presented to [facility] for an elective outpatient cardioversion due to underlying atrial fibrillation. The patient reports no PO intake since midnight. The patient does not have a history of obstructive sleep apnea, but did report snoring. The patient reports no history of smoking and COPD. The patient denies any recent constitutional symptoms such as fevers, chills, nausea or vomiting. The patient denies previous anesthetic complications. Last known EF 65% PHYSICAL EXAMINATION: VITAL SIGNS: Reviewed and were acceptable. GENERAL: The patient is a female, in no apparent distress, speaking in full sentences. HEENT: Normocephalic, atraumatic. Mucous membranes are moist and pink. Good mouth opening noted. Trachea is midline. Good neck mobility. MP IV CHEST: S1, S2 irregularly irregular. No murmurs, rubs or gallops were noted. LUNGS: Clear to auscultation bilaterally without appreciable wheezes, rales or rhonchi. ABDOMEN: Soft, nontender, nondistended. Positive bowel sounds. EXTREMITIES: There is no clubbing, cyanosis or edema. ASA Class: II DESCRIPTION OF PROCEDURE: After confirmation of informed consent, the patient's anesthesia plan was reviewed in detail. Propofol was chosen. Risks and benefits were reviewed and the patient agreed to proceed. At 12:45 PM, the patient was given 40 mg of propofol. The patient required a total of 60 mg of propofol throughout the procedure to achieve appropriate sedation. The patient achieved an appropriate level of sedation and received 1 attempt s synchronized cardioversion, at [address] Oleary at the bedside. This was successful in achieving normal sinus rhythm. The patient was monitored until 12:55 PM, at which time the patient reached their baseline mental status and function. The patient tolerated the procedure well. COMPLICATIONS: None ESTIMATED BLOOD LOSS: None RECOMMENDATIONS: Okay to recover in usual fashion. Code Visit 9xxxx: Other Procedure See Report - 68840 -10 minutes of conscious sedation 09/10/18 0547 <Electronically signed by Andrea Peace MD> Date Andrea Peace MD CC: Andrea Peace MD; Shyla Morales MD; Sami Oleary MD Signed OPERATIVE REPORT Observed: 09/09/2018 Status: F Source: [place] 1:08 PM [facility] Medical Records Department [address] [place] [address] Operative Report 09/09/18 1306 MR#: [id number] Acct: [id number] Name: SUSANNE COLINDRES Rep #: [id number] : 1950 67 From: Sami Oleary MD PCP: Shyla Morales MD Status: REG SDC Y Location: [facility] Problem List (1) Atrial fibrillation Status: Acute Qualifiers: Operative Report Date of Procedure: 09/09/18 Proceure: Synchronized Biphasic DC Cardioversion Indications: Atrial fibrillation Consent: Per the Patient Anesthesia: per Dr. Peace of pulmonology and critical care medicine with propofol 60 mg IV push total Procedure: Synchronized Biphasic DC Cardioversion: 200 J x1: Result: Sinus rhythm; PACs; PVCs Complications: no apparent complications This note was generated with ecomomation software. It may contain incorrect words, spelling, and punctuation that were not noted in checking the note before signing. 09/09/18 1308 <Electronically signed by Sami Oleary MD> Date Sami Oleary MD CC: Shyla Morales MD; Sami Oleary MD Signed HISTORY AND PHYSICAL Observed: 09/09/2018 Status: F Source: [place] EXAM 12:29 PM [facility] REPOSITORY [facility] Medical Records Department [address] [place] [address] History and Physical 09/09/18 1217 MR#: [id number] Acct: [id number] Name: SUSANNE COLINDRES Rep #: [id number] : 1950 67 From: Taylor JARQUIN PCP: Shyla Morales MD Status: REG SDC Y Location: [facility] Problem List (1) Atrial fibrillation Status: Acute Qualifiers: History and Physical Date of Admission: 09/09/18 HPI Details: SUSANNE COLINDRES, is a 67 F who presents to the hospital for a scheduled cardioversion. She has a history of atrial fibrillation/flutter, mitral valve disease, hypertension, hyperlipidemia, and thyroid disorder. She continues to complain of SOB. This had improved with the addition of lasix but has returned when she decreased this medication. She has since not increased it back to 40 mg daily because she has not had any lower extremity edema. She restarted an injection for her Kidneys that was prescribed by her travel services professional. Allergies Penicillins [PCN] Allergy (Verified 08/01/18 08:32) Unknown lisinopril Adverse Reaction (Intermediate, Verified 08/01/18 08:32) cough Medications Atorvastatin Calcium [Lipitor] 40 mg PO DAILY 08/16/17 [History Confirmed 07/17/18] Fluoxetine [Prozac] 20 mg PO DAILY 08/16/17 [History Confirmed 07/17/18] Losartan Potassium [Cozaar] 50 mg PO BID 08/16/17 [History Confirmed 07/17/18] acetaminophen 500 mg capsule 500 mg PO Q6H PRN 10/17/17 [History Confirmed 07/17/18] atenolol 50 mg tablet 25 mg PO DAILY 10/17/17 [History Confirmed 07/17/18] Ascorbic Acid [Vitamin C] 500 mg PO DAILY@0800 02/10/18 [History Confirmed 07/17/18] calcium carbonate 600 mg (1,500 mg)-vitamin D3 200 unit tablet 1 tab PO QDAY 04/24/18 [History Confirmed 07/17/18] levothyroxine 125 mcg tablet 125 mcg PO QDAY 04/24/18 [History Confirmed 07/17/18] Amlodipine [Norvasc] 5 mg PO DAILY 07/17/18 [History Confirmed 07/17/18] Bupropion HCl [Bupropion HCl Sr] 150 mg PO DAILY 07/17/18 [History Confirmed 07/17/18] Clindamycin [Cleocin] 150 mg PO DAILY 07/17/18 [History Confirmed 07/17/18] H.P. Acthar Gel 80 units SQ UD 07/17/18 [History Confirmed 07/17/18] Spironolactone 25 mg PO DAILY 07/17/18 [History Confirmed 07/17/18] Diltiazem CD [Cardizem CD] 120 mg PO Q12 #60 cap 07/19/18 [Rx] Rivaroxaban [Xarelto] 20 mg PO DAILY@1700 #30 tab 07/19/18 [Rx] amlodipine 2.5 mg tablet 2.5 mg PO QHS 08/01/18 [History Confirmed 08/01/18] PFSH Medical History SOB (shortness of breath) (Acute) Edema (Acute) Rheumatic mitral regurgitation (Chronic) Hyperlipidemia (Chronic) Hypertension (Chronic) Hypothyroidism (Acute) CKD (chronic kidney disease) (Chronic) Surgical History History of carpal tunnel surgery (Resolved) History of dilatation and curettage (Resolved) History of hip replacement, total (Resolved) History of tubal ligation (Resolved) Family History Father Heart disease Social History Smoking Status: Never smoker alcohol intake: never substance use type: does not use ROS Const: Negative for fatigue, weakness, body ache, fever(s) or chills ENT: Negative for dizziness Chest Pain: No Palpitations: No Edema: Bilateral Muscle aches with walking: None Respiratory: Positive for SOB with activity; negative for SOB at rest, SOB orthopnea\SOB lying down or paroxysmal nocturnal dyspnea GI: Negative nausea, black,tarry stools, bright, red blood in stools or vomiting blood/hematemesis : Negative for hematuria or frequent nighttime urination/ nocturia Musc: Negative for muscle aches/ myalgia Skin: Negative non-healing lesions or rash Neuro: Negative for weakness, dizziness, lightheadedness, near syncope, syncope or orthostatic symptoms Endo: Negative for fatigue Allergy/Immunology: Negative for rash Cardiology Exam Appearance: cooperative, healthy appearing, comfortable, well developed and well groomed Nutritional Appearance: overweight Orientation: alert, awake and oriented x3 Head: normal to inspection, normocephalic and atraumatic Ears: hearing grossly normal bilaterally Nose: external nose normal Face and Sinus: face symmetric Mouth: oral mucosae normal Eyelids: eyelids normal Conjunctivae: conjunctivae normal Pupils: PERRL EOM: EOM intact bilaterally Neck: normal visual inspection Carotids: normal carotid upstroke Lungs Chest inspection: normal inspection of the chest and symmetric chest movement Auscultation: Bilateral: Clear to Auscultation Heart Palpation: normal PMI Rhythm: irregularly irregular Heart sounds: S1 normal, S2 normal and murmur; negative gallop or rub Murmur: Grade 3/6, holosystolic, apex and axilla GI: normal to inspection, bowel sounds present and soft Neuro General: alert, awake and oriented x3 Skin Skin: no rashes or lesions noted Extremities Pulses: Normal: Right Posterior Tibial Pulse, Left Posterior Tibial Pulse, Right Radial Pulse, Left Radial Pulse Lower Extremity Edema: +1: Bilateral Psych Psychological: normal affect Supplemental Info Echocardiogram from July 2018 showed an ejection fraction of 60%, mild concentric LVH, apical false tendon noted, severely enlarged left atrium, mildly enlarged right atrium, mild diffuse mitral thickening, mild focal mitral valve calcification of the anterior leaflet, moderately severe mitral valve insufficiency, moderate tricuspid valve insufficiency, mild diffuse aortic valve thickening, mild focal aortic valve calcification, mild pulmonic valve insufficiency, trivial pericardial effusion, no echocardiographic indication of cardiac tamponade, RVSP 48 mmHg, and evidence of diastolic dysfunction. Assessment AND Plan 1. Persistent atrial fibrillation I48.1 Pt has remained in Atrial fibrillation, she continues to complain of SOB with exertion. Hopefully this will improve with her cardioversion that is scheduled for today. She will follow up in the office next week. Currently her HR is controlled and she has been anticoagulated with a Factor X a inhibitor. 2. Non-rheumatic mitral regurgitation I34.0 Her echocardiogram July 2018 showed ejection fraction of 60% moderate concentric LVH and moderately severe mitral valve insufficiency. This may be contributing to her lower extremity edema and shortness of breath. At this time she will continue current medications. 4. Pure hypercholesterolemia E78.00; E78.0 Lipid panel from May 2018 showed cholesterol: 155, HDL: 94, LDL: 54, and triglyceride: 36. She will continue with current statin medication. 5. Essential hypertension I10 09/09/18 1229 <Electronically signed by Taylor JARQUIN> Date Taylor JARQUIN Cosigner Signature: Date (if applicable) CC: Shyla Morales MD; Taylor Leonard Signed PROTEIN+CREATININE Collected: Status: F Source: HECTOR RATIO,URINE 08/20/2018 9:07 AM [facility] REPOSITORY TYPE CODE TESTS RESULT OUT OF RANGE REFERENCE UNITS LAB L501.1200 NO RANGE EST. mg/dL < Normal UR 13.00 CREAT LAB L501.1930 <11.9 mg/dL High 17.4 PROTEIN,UR. RAN. LAB L501.1940 0-200 mg/g CRE Test Normal not performed PROT:CRE RATIO Performed By: #### L501.0900 #### [facility] [address] [place], [place], [address] URINALYSIS, ROUTINE Collected: 08/20/2018 Status: F Source: HECTOR (DIPSTICK) 9:07 AM [facility] REPOSITORY Order Comment: How was Urine Obtained? CLEAN CATCH TYPE CODE TESTS RESULT OUT OF RANGE REFERENCE UNITS LAB L400.3000 Yellow COLOR Normal Yellow LAB L400.3050 Clear Sl Normal CLARITY Cldy LAB L400.3200 Normal mg/dl Normal GLUCOSE, UR NEGATIVE LAB L400.3300 Negative mg/dL Normal BILIRUBIN URINE Negative LAB L400.3400 Negative mg/dl Normal KETONE UR Negative LAB L400.3465 1.002-1.030 Low SP.GR. DIPSTX 1.000 LAB L400.3550 5.0 - 8.0 pH UR Normal 8.0 LAB L400.3600 Negative mg/dl High PROT 30 DIPSTX LAB L400.3700 Normal mg/dl Normal UROBILI Normal LAB L400.3750 Negative Normal NITRITE UR Negative LAB L400.3780 Negative /ul 10 Normal OCCULT BLOOD-UR LAB L400.3800 Negative /ul LEUK Normal ESTERASE Negative Performed By: #### L400.2010 #### [facility] [address] [place], [place], [address] PROTHROMBIN TIME W/INR Collected: 08/20/2018 Status: F Source: HECTOR 9:06 AM [facility] REPOSITORY Order Comment: WANTS THE [facility] ALSO TYPE CODE TESTS RESULT OUT OF RANGE REFERENCE UNITS LAB L300.4150 11.7-14.9 SECONDS High PROTIME 20.5 LAB L300.4200 Normal INR 1.8 Performed By: #### L300.3900 #### [facility] [address] [place], [place], [address] BASIC METABOLIC Collected: 08/20/2018 Status: F Source: [place] PROFILE (BMP) 9:06 AM [facility] REPOSITORY Order Comment: WANTS THE BMP ALSO TYPE CODE TESTS RESULT OUT OF RANGE REFERENCE UNITS LAB L501.0100 74-106 mg/dL Normal GLU 96 Result Comment: Please note revised GLUCOSE reference range effective 2017. LAB L501.1000 7-18 mg/dL High BUN 21 LAB L501.1100 0.55-1.02 mg/dL High CREAT,SERUM 1.48 Result Comment: The validity of the calculated GFR AND GFRAA in patients over 70 years has not been determined. Clinical correlation is essential. LAB L501.1110 >60 mL/min Low EST GFR 37 Result Comment: Non- GFR Calc LAB L501.1115 >60 mL/min Low EST GFR - AA 45 Result Comment: GFR Calc LAB L501.1300 10-20 RATIO Normal BUN/CRE 14.2 LAB L501.2200 8.5-10.1 mg/dL CA Normal 9.4 LAB L501.5300 136-145 mmol/L NA Normal 138 LAB L501.5600 3.5-5.1 mmol/L K Normal 4.3 LAB L501.5900 98-107 mmol/L Low CL 97 LAB L501.6100 21.0-32.0 mmol/L High CO2 34.0 LAB L501.6200 5-15 Normal GAP 7 Performed By: #### L500.2500 #### [facility] [address] [facility] [address] [place], [place], [address] CARDIOLOGY VISIT Observed: 08/01/2018 Status: F Source: HECTOR REPORT 12:51 PM [facility] REPOSITORY [facility] [address] [place] [address] OFFICE VISIT Date of Service: 08/01/18 MR#: [id number] Acct: [id number] Name: SUSANNE COLINDRES Rep #: [id number] : 1950 Provider: LOPEZ Leonard Age/Sex: 67/F Location: [facility] Status: Signed HPI HPI Details: SUSANNE COLINDRES, is a 67 F who presents to the office today for a cardiovascular outpatient follow-up. She has a history of atrial fibrillation/flutter, mitral valve disease, hypertension, hyperlipidemia, and thyroid disorder. After last office visit she was transferred to [facility] emergency department for further evaluation of his EKG showing atrial fibrillation with RVR. She underwent rate controlling with IV Cardizem and transitioned to p.o. Cardizem. Her echocardiogram showed an ejection fraction of 60%. Her stress test was normal. She denies chest, arm, jaw, or neck discomfort. Her exercise tolerance is stable. Pt denies symptoms of CHF, palpitations, lightheadedness, dizziness, near syncopal or syncopal episodes. Pt denies claudication issues. Pt. denies orthopnea, PND, fever, chills, blood in urine, blood in stool, myalgia, or unexplainable fatigue. She states SOB with exertion that improves with rest and slow speed. She states minimal lower extremity bilateral edema. Intake Vital Signs08/01/18 Height 5 ft 08/01/18 Weight: 160 lb 08/01/18 Body Mass Index (BMI) 31.2 08/01/18 Blood Pressure 128/74 H 08/01/18 Blood Pressure Location Lt brachial Intake Visit Reasons: Afiib, PCU 07/17-07/19 Allergies Penicillins [PCN] Allergy (Verified 08/01/18 08:32) Unknown lisinopril Adverse Reaction (Intermediate, Verified 08/01/18 08:32) cough Medications Atorvastatin Calcium [Lipitor] 40 mg PO DAILY 08/16/17 [History Confirmed 07/17/18] Fluoxetine [Prozac] 20 mg PO DAILY 08/16/17 [History Confirmed 07/17/18] Losartan Potassium [Cozaar] 50 mg PO BID 08/16/17 [History Confirmed 07/17/18] acetaminophen 500 mg capsule 500 mg PO Q6H PRN 10/17/17 [History Confirmed 07/17/18] atenolol 50 mg tablet 25 mg PO DAILY 10/17/17 [History Confirmed 07/17/18] Ascorbic Acid [Vitamin C] 500 mg PO DAILY@0800 02/10/18 [History Confirmed 07/17/18] calcium carbonate 600 mg (1,500 mg)-vitamin D3 200 unit tablet 1 tab PO QDAY 04/24/18 [History Confirmed 07/17/18] levothyroxine 125 mcg tablet 125 mcg PO QDAY 04/24/18 [History Confirmed 07/17/18] Amlodipine [Norvasc] 5 mg PO DAILY 07/17/18 [History Confirmed 07/17/18] Bupropion HCl [Bupropion HCl Sr] 150 mg PO DAILY 07/17/18 [History Confirmed 07/17/18] Clindamycin [Cleocin] 150 mg PO DAILY 07/17/18 [History Confirmed 07/17/18] H.P. Acthar Gel 80 units SQ UD 07/17/18 [History Confirmed 07/17/18] Spironolactone 25 mg PO DAILY 07/17/18 [History Confirmed 07/17/18] Diltiazem CD [Cardizem CD] 120 mg PO Q12 #60 cap 07/19/18 [Rx] Rivaroxaban [Xarelto] 20 mg PO DAILY@1700 #30 tab 07/19/18 [Rx] amlodipine 2.5 mg tablet 2.5 mg PO QHS 08/01/18 [History Confirmed 08/01/18] PFSH Medical History SOB (shortness of breath) (Acute) Edema (Acute) Rheumatic mitral regurgitation (Chronic) Hyperlipidemia (Chronic) Hypertension (Chronic) Hypothyroidism (Acute) CKD (chronic kidney disease) (Chronic) Surgical History History of carpal tunnel surgery (Resolved) History of dilatation and curettage (Resolved) History of hip replacement, total (Resolved) History of tubal ligation (Resolved) Family History Father Heart disease Social History Smoking Status: Never smoker alcohol intake: never substance use type: does not use ROS Const Const: Negative for fatigue, weakness, body ache, fever(s) or chills ENT ENT: Negative for dizziness Cardio Chest Pain: No Palpitations: No Edema: Bilateral Muscle aches with walking: None Resp Respiratory: Positive for SOB with activity; negative for SOB at rest, SOB orthopnea\SOB lying down or paroxysmal nocturnal dyspnea GI GI: Negative nausea, black,tarry stools, bright, red blood in stools or vomiting blood/hematemesis : Negative for hematuria or frequent nighttime urination/ nocturia Musc Musc: Negative for muscle aches/ myalgia Skin Skin: Negative non-healing lesions or rash Neuro Neuro: Negative for weakness, dizziness, lightheadedness, near syncope, syncope or orthostatic symptoms Endo Endo: Negative for fatigue Allergy Allergy/Immunology: Negative for rash Cardiology Exam Const Appearance: cooperative, healthy appearing, comfortable, well developed and well groomed Nutritional Appearance: overweight Orientation: alert, awake and oriented x3 Head Head: normal to inspection, normocephalic and atraumatic Ears: hearing grossly normal bilaterally Nose: external nose normal Face and Sinus: face symmetric Mouth: oral mucosae normal Eyes Eyelids: eyelids normal Conjunctivae: conjunctivae normal Pupils: PERRL EOM: EOM intact bilaterally Neck Neck: normal visual inspection Carotids: normal carotid upstroke Chest Chest inspection: normal inspection of the chest and symmetric chest movement Auscultation: Bilateral: Clear to Auscultation Cardio Palpation: normal PMI Rhythm: irregularly irregular Heart sounds: S1 normal, S2 normal and murmur; negative gallop or rub Murmur: Grade 3/6, holosystolic, apex and axilla GI GI: normal to inspection, bowel sounds present and soft Neuro General: alert, awake and oriented x3 Skin Skin: no rashes or lesions noted Extremities Pulses: Normal: Right Posterior Tibial Pulse, Left Posterior Tibial Pulse, Right Radial Pulse, Left Radial Pulse Lower Extremity Edema: +1: Bilateral Psych Psychological: normal affect Supplemental Info Echocardiogram from July 2018 showed an ejection fraction of 60%, mild concentric LVH, apical false tendon noted, severely enlarged left atrium, mildly enlarged right atrium, mild diffuse mitral thickening, mild focal mitral valve calcification of the anterior leaflet, moderately severe mitral valve insufficiency, moderate tricuspid valve insufficiency, mild diffuse aortic valve thickening, mild focal aortic valve calcification, mild pulmonic valve insufficiency, trivial pericardial effusion, no echocardiographic indication of cardiac tamponade, RVSP 48 mmHg, and evidence of diastolic dysfunction. Assessment AND Plan 1. Persistent atrial fibrillation I48.1 Plan Patient's heart rate is elevated today in office. On physical exam her rhythm is irregularly irregular. She will increase her atenolol to 50 mg p.o. daily and continue with her current dose of Cardizem 120 mg twice daily hopefully as her rate improves her symptoms will also improve. Will be discussed further with Dr. Oleary regarding cardioversion or antiarrhythmic medication in an attempt to achieve sinus rhythm. 2. SOB (shortness of breath) R06.02 Plan It is unclear if this is related to elevated heart rhythm or other etiologies such as fluid volume overload. She undergo further evaluation with a BTNP. A completion of this note her BTNP was elevated at 511.7. She was contacted regarding this. Daughter states they will discuss diuretic adjustment with travel services professional prior to initiating. She was advised to take Lasix 40 mg p.o. daily for 3 days and then resume current regimen which is spironolactone 25 mg p.o. daily. Orders Orders: 3. Non-rheumatic mitral regurgitation I34.0 Plan Her echocardiogram July 2018 showed ejection fraction of 60% moderate concentric LVH and moderately severe mitral valve insufficiency. This may be contributing to her lower extremity edema and shortness of breath. At this time she will continue current medications. 4. Pure hypercholesterolemia E78.00; E78.0 Plan Lipid panel from May 2018 showed cholesterol: 155, HDL: 94, LDL: 54, and triglyceride: 36. She will continue with current statin medication. 5. Essential hypertension I10 Plan Her blood pressure is well-controlled today in office. Her amlodipine may be contributing to some element of lower extremity edema. She has had episodes of hypotension on higher doses of Cardizem. At this time she was asked to continue to monitor blood pressure as her medications are adjusted as outlined above. Plan Detail Additional Comments Thank you for allowing us to participate in the patients plan of care, if you have any questions please do not hesitate to call. This note was generated using a voice recognition system and there may be incorrect words, spelling or punctuation that were not noted when reviewing the office note prior to saving. Coding Level of Care Code Off vis,est,level 3 Diagnoses Persistent atrial fibrillation I48.1 Atrial fibrillation type: persistent SOB (shortness of breath) R06.02 Non-rheumatic mitral regurgitation I34.0 Cardiac valve disease etiology: nonrheumatic Pure hypercholesterolemia E78.00; E78.0 Hyperlipidemia type: pure hypercholesterolemia Essential hypertension I10 Hypertension type: essential hypertension Coding Level of Care Code Off vis,est,level 3 Diagnoses Persistent atrial fibrillation I48.1 Atrial fibrillation type: persistent SOB (shortness of breath) R06.02 Non-rheumatic mitral regurgitation I34.0 Cardiac valve disease etiology: nonrheumatic Pure hypercholesterolemia E78.00; E78.0 Hyperlipidemia type: pure hypercholesterolemia Essential hypertension I10 Hypertension type: essential hypertension 08/01/18 1251 <Electronically signed by Vikas H Roof SENIOR PRINCIPAL PROCESS ENGINEER-C> Date Vikas Schwarz [facility] SENIOR PRINCIPAL PROCESS ENGINEER-C Cosigner Signature: Date (if applicable) CC: Shyla Morales MD BNP,B-TYPE NATRIURETIC Collected: 08/01/2018 Status: F Source: [place]ECTOR [place] 9:35 AM [facility] REPOSITORY TYPE CODE TESTS RESULT OUT OF RANGE REFERENCE UNITS LAB L503.6620 0-100 pg/mL High B-TYPE 511.7 SADIE PEP Performed By: #### L503.6620 #### [facility] [address] [facility] [place], [address] 12 LEAD ELECTROCARDIOGRAM Observed: 07/23/2018 Status: F Source: HECTOR 3:42 PM [facility] REPOSITORY [facility] Cardiovascular Services [address] [place] [address] 12 Lead EKG 07/18/18 0541 MR#: [id number] Acct: [id number] Name: SUSANNE COLINDRES Rep #: [id number] : 1950 67 From: Helio Jurado MD [facility]: DIS IN Ordering Dr: Sami Oleary MD Date: 07/18/18 Location: [facility] Sex: F C Admitted: 07/17/18 Test Reason : AM EKG Blood Pressure : / mmHG Vent. Rate : 088 BPM Atrial Rate : 375 BPM P-R Int : 000 ms QRS Dur : 104 ms QT Int : 388 ms P-R-T Axes : 000 042 039 degrees QTc Int : 469 ms Atrial fibrillation Septal infarct , age undetermined Abnormal ECG When compared with ECG of 17-JUL-2018 16:00, MANUAL COMPARISON REQUIRED, DATA IS UNCONFIRMED Confirmed by RHIANNON HAMMOND, HELIO ([id number]), editorial project manager MARILYN FULLER ([id number]) on 07/23/2018 3:41:33 PM Referred By: GILBERTO Confirmed By:HELIO JURADO MD 07/23/18 1541 Date Helio Jurado MD CC: Shyla Morales MD; Sami Oleary MD; Kike Vasquez MD Signed 12 LEAD ELECTROCARDIOGRAM Observed: 07/21/2018 Status: F Source: HECTOR 2:24 PM [facility] REPOSITORY [facility] Cardiovascular Services [address] [place] [address] 12 Lead EKG 07/17/18 1600 MR#: [id number] Acct: [id number] Name: SUSANNE COLINDRES Rep #: [id number] : 1950 67 From: Helio Jurado MD Attending Dr: Kike Vasquez MD Status: DIS IN Ordering Dr: Jung Vallejo DO Date: 07/17/18 Location: [facility] Sex: F C Admitted: 07/17/18 Test Reason : Blood Pressure : / mmHG Vent. Rate : 128 BPM Atrial Rate : 138 BPM P-R Int : 192 ms QRS Dur : 092 ms QT Int : 266 ms P-R-T Axes : 051 028 023 degrees QTc Int : 388 ms Sinus tachycardia Septal infarct , age undetermined Abnormal ECG Confirmed by RHIANNON HAMMOND, HELIO ([id number]), editorial project manager MARILYN FULLER ([id number]) on 07/21/2018 2:24:00 PM Referred By: DELROY Confirmed By:HELIO JURADO MD 07/21/18 1424 Date Helio Jurado MD CC: Shyla Morales MD; Jung Vallejo DO; Kike Vasquez MD Signed DISCHARGE SUMMARY Observed: 07/19/2018 Status: F Source: HECTOR 1:01 PM [facility] REPOSITORY [facility] Medical Records Department [address] [place] [address] Discharge Summary 07/19/18 0941 MR#: [id number] Acct: [id number] Name: SUSANNE COLINDRES Rep #: [id number] : 1950 67 From: Kike Vasquez MD PCP: Shyla Morales MD Status: DIS IN Y Location: [place] [address] Discharge Date and Diagnosis Date of Admission: 07/17/18 Date of Discharge: 07/19/18 - Primary Discharge Diagnosis Active and Suspected Problems (Last Reviewed 07/17/18 @ 17:32 by Fermin Harrell DO) Atrial fibrillation (Acute) Atrial fibrillation with RVR, new onset - Secondary Discharge Diagnosis Chronic Problems (Last Reviewed 07/17/18 @ 17:32 by Fermin Harrell DO) Depression (Chronic) Proteinuria (Chronic) Hypothyroidism (Chronic) Mitral valve insufficiency (Chronic) Rheumatic mitral regurgitation (Chronic) Hyperlipidemia (Chronic) Hypertension (Chronic) 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 Her heart rate is controlled but is still A. fib on awake overnight monitor. On exam General: Alert, Oriented x3, Cooperative HEENT: Atraumatic, PERRLA, EOMI, Normocephalic Neck: Supple, No JVD, Negative Carotid Bruits Lungs: Clear to auscultation, air entry bilaterally equal Cardiovascular: No murmurs, Irregular Rate Abdomen: Bowel Sounds Present, Soft, Non Tender Extremities: No edema, Capillary Refill Less than 3 Seconds Skin: No rashes, No breakdown Musculoskeletal: No Tenderness to Palpation of Joints or Extremities Neurological: Cranial nerves II-XII grossly intact Psych/Mental Status: Normal Affect, Appropriate, Alert and oriented to time, place, person, mood and affect The patient is a 67 year F was admitted for heart palpitations, with flutter waves ongoing for about 1-2 weeks week. On evaluation found to be A. fib with RVR. Patient was admitted on telemetry. Patient did not initially responded with metoprolol and therefore started on IV Cardizem drip. Echo was reported as EF 60% with normal LV systolic function, TR 2+, RVSP 48 mm. Stress test normal. Cardizem drip was titrated and tapered off. Started on Cardizem CD 120 mg p.o. twice daily. Continue atenolol 50 mg daily. Patient was seen by equipment inspector Dr. Oleary. Patient is on Xarelto 20 mg daily. TSH mildly elevated 5.57, free T4 1.4, free T3 0.7 low. Free T3 was also low 1.6 in September 2017. As the patient has A. fib with RVR and free T4 normal, it was decided to keep her levothyroxine 125 mcg daily. Might be assessed as an outpatient if [place] Thyroid, combination of T4 and T3 is good for her. 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 Discharge medication reconciliation done and discussed with the patient. Discharge follow-up instructions discussed with the patient. Patient is to follow with Dr. Oleary in 3-4 weeks to consider for electrocardioversion if not chemically cardioverted. Total time spent, exact 35 minutes on discharge meds reconciliation, examination, review of imaging and blood test and discussion with the patient on follow-up instructions. Discharge Activity: Return to Normal Activity Call your doctor if you observe: Fever of 101 or Higher, Numbness or Tingling, Shortness of breath, Dizziness, Fainting spells, Chest pain Home Medications: Medications to take at Discharge Atorvastatin Calcium [Lipitor] 40 mg PO DAILY 08/16/17 Fluoxetine [Prozac] 20 mg PO DAILY 08/16/17 Losartan Potassium [Cozaar] 50 mg PO BID 08/16/17 acetaminophen 500 mg capsule 500 mg PO Q6H PRN 10/17/17 atenolol 50 mg tablet 25 mg PO DAILY 10/17/17 Ascorbic Acid [Vitamin C] 500 mg PO DAILY@0800 02/10/18 calcium carbonate 600 mg (1,500 mg)-vitamin D3 200 unit tablet 1 tab PO QDAY 04/24/18 levothyroxine 125 mcg tablet 125 mcg PO QDAY 04/24/18 Amlodipine [Norvasc] 2.5 mg PO QHS 07/17/18 Amlodipine [Norvasc] 5 mg PO DAILY 07/17/18 Bupropion HCl [Bupropion HCl Sr] 150 mg PO DAILY 07/17/18 Clindamycin [Cleocin] 150 mg PO DAILY 07/17/18 H.P. Acthar Gel 80 units SQ UD 07/17/18 Spironolactone 25 mg PO DAILY 07/17/18 Diltiazem CD [Cardizem CD] 120 mg PO Q12 #60 capsule 07/19/18 Rivaroxaban [Xarelto] 20 mg PO DAILY@1700 #30 tablet 07/19/18 Following Prescrptions Were Given to Patient: Diltiazem CD [Cardizem CD] 120 mg PO Q12 #60 capsule Rivaroxaban [Xarelto] 20 mg PO DAILY@1700 #30 tablet Primary Care Physician: Shyla Morales MD [Primary Care Provider] - Please follow up with your Primary Care Physician in: in 2 weeks Please Follow Up With: Sami Oleary MD When: in 3-4 weeks for A fib to consier elective cardioversion Medical Necessity - Tobacco Use Smoking Status: Never smoker Tobacco Use: Non-smoker Meaningful Use Info Meaningful Use Diagnoses (Choose all that apply): None applicable Code Visit Inpatient E AND M: 95290 Disch Hosp 07/19/18 1301 <Electronically signed by Kike Vasquez MD> Date Kike Vasquez MD Cosigner Signature (if applicable): Date CC: Shyla Morales MD; Kike Vasquez MD Signed DISCHARGE INSTRUCTION Observed: 07/19/2018 Status: F Source: [place] 9:40 AM [facility] REPOSITORY [facility] Medical Records Department [address] [place] [address] Instructions for Home/Discharge Instructions 07/19/18 0933 MR#: [id number] Acct: [id number] Name: SUSANNE COLINDRES Rep #: [id number] : 1950 67 From: Kike Vasquez MD PCP: Shyla Morales MD Status: ADM IN - Discharge Diagnoses Current Active Problems: Current Active and Chronic Problems (Last Reviewed 07/17/18 @ 17:32 by Fermin Harrell DO) Atrial fibrillation (Acute) Depression (Chronic) Proteinuria (Chronic) Hypothyroidism (Chronic) Mitral valve insufficiency (Chronic) You will use the following diet at home:: Cardiac Discharge Activity: Return to Normal Activity Call your doctor if you observe: Fever of 101 or Higher, Numbness or Tingling, Shortness of breath, Dizziness, Fainting spells, Chest pain Additional Instructions: Keep on home dose of levothyroxine 125 mcg daily as free T4 is normal, 1.44 even free T3 is low 1.7 and TSH 5.5. Free T3 is chronically low, 1.6 on 09/16/2017. Might consider [facility] as an outpatient with PCP Allergies/Adverse Reactions: Allergies Penicillins [PCN] Allergy (Verified 07/17/18 15:53) Unknown lisinopril Adverse Reaction (Intermediate, Verified 07/17/18 15:53) cough Medications to take at Discharge Atorvastatin Calcium [Lipitor] 40 mg PO DAILY 08/16/17 Fluoxetine [Prozac] 20 mg PO DAILY 08/16/17 Losartan Potassium [Cozaar] 50 mg PO BID 08/16/17 acetaminophen 500 mg capsule 500 mg PO Q6H PRN 10/17/17 atenolol 50 mg tablet 25 mg PO DAILY 10/17/17 Ascorbic Acid [Vitamin C] 500 mg PO DAILY@0800 02/10/18 calcium carbonate 600 mg (1,500 mg)-vitamin D3 200 unit tablet 1 tab PO QDAY 04/24/18 levothyroxine 125 mcg tablet 125 mcg PO QDAY 04/24/18 Amlodipine [Norvasc] 2.5 mg PO QHS 07/17/18 Amlodipine [Norvasc] 5 mg PO DAILY 07/17/18 Bupropion HCl [Bupropion HCl Sr] 150 mg PO DAILY 07/17/18 Clindamycin [Cleocin] 150 mg PO DAILY 07/17/18 H.P. Acthar Gel 80 units SQ UD 07/17/18 Spironolactone 25 mg PO DAILY 07/17/18 Diltiazem CD [Cardizem CD] 120 mg PO Q12 #60 capsule 07/19/18 Rivaroxaban [Xarelto] 20 mg PO DAILY@1700 #30 tablet 07/19/18 The following prescriptions were given: Diltiazem CD [Cardizem CD] 120 mg PO Q12 #60 capsule Rivaroxaban [Xarelto] 20 mg PO DAILY@1700 #30 tablet Primary Care Physician: Shyla Morales MD [Primary Care Provider] - Please follow up with your Primary Care Physician in: in 2 weeks Test Results: Test results from this visit will be discussed in further detail at your follow-up appointment, if applicable. Please Follow Up With: Sami Oleary MD When: in 3-4 weeks for A fib to consier elective cardioversion 07/19/18 0940 <Electronically signed by Kike Vasquez MD> Date Kike Vasquez MD CC: Shyla Morales MD; Sami Oleary MD BASIC METABOLIC Collected: 07/19/2018 Status: F Source: HECT[place] PROFILE (BMP) 6:15 AM [facility] REPOSITORY TYPE CODE TESTS RESULT OUT OF RANGE REFERENCE UNITS LAB L501.0100 74-106 mg/dL High GLU 137 Result Comment: Fasting Glucose result greater than or equal to 126 mg/dL suggests DIABETES MELLITUS per A.D.A. criteria. Please note revised GLUCOSE reference range effective 2017. LAB L501.1000 7-18 mg/dL High BUN 28 LAB L501.1100 0.55-1.02 mg/dL High CREAT,SERUM 1.13 Result Comment: The validity of the calculated GFR AND GFRAA in patients over 70 years has not been determined. Clinical correlation is essential. LAB L501.1110 >60 mL/min Low EST GFR 51 Result Comment: Non- GFR Calc LAB L501.1115 >60 mL/min Normal EST GFR - AA 62 Result Comment: GFR Calc LAB L501.1255 ml/min Normal Estimated CRCL 45.85 LAB L501.1300 10-20 RATIO High BUN/CRE 24.8 LAB L501.2200 8.5-10 mg/dL Normal .1 CA 8.6 LAB L501.5300 136-14 mmol/L Normal 5 NA 142 LAB L501.5600 3.5-5. mmol/L Normal 1 K 3.9 LAB L501.5900 98-107 mmol/L Normal CL 106 LAB L501.6100 21.0-3 mmol/L Normal 2.0 CO2 28.0 LAB L501.6200 5-15 Normal GAP 8 Performed By: #### L500.2500 #### [facility] [address] [place], [address] PARTIAL THROMBOPLAST Collected: 07/18/2018 Status: F Source: [place]ECT[place] TIME 12:38 PM [facility] REPOSITORY TYPE CODE TESTS RESULT OUT OF REFERENCE UNITS RANGE LAB L300.4310 24.1-36.2 Seconds High PTT 52.1 Performed By: #### L300.4310 #### [facility] [address] [place], [address] ECHOCARDIOGRAM COMPLETE Observed: 07/18/2018 Status: F Source: [place] 12:22 PM [facility] REPOSITORY [facility] Cardiovascular Services [address] [place] [address] Echo Complete 07/18/18 0823 MR#: [id number] Acct: [id number] Name: SUSANNE COLINDRES Rep #: [id number] : 1950 67 From: Sami Oleary MD Attending Dr: Kike Vasquez MD Status: ADM IN Ordering Dr: Fermin Harrell DO Date: 07/17/18 Location: U Sex: F C Admitted: 07/17/18 Reason For Study: AFIB Procedure This was a 2D Doppler, Color Flow transthoracic echocardiogram. The exam was of adequate technical quality. Exam performed portable in patient room. Left Ventricle Normal LV size. Mild concentric left ventricular hypertrophy. Apical false tendon noted. Left ventricular systolic function is normal. The estimated ejection fraction is 60 %. There is evidence of diastolic dysfunction. No regional wall motion abnormalities noted. Right Ventricle Normal RV size. Normal systolic function. Atria The left atrium is severely enlarged. The right atrium is mildly enlarged. No doppler evidence for ASD. Mitral Valve There is no mitral annular calcification. Mild diffuse mitral valve thickening. Mild focal mitral valve calcification of the anterior leaflet. Moderately severe (3+) eccentric mitral valve insufficiency. Tricuspid Valve Normal tricuspid valve. Moderate (2+) tricuspid valve insufficiency. Right ventricular systolic pressure estimated to be 48 mmHg. Aortic Valve Trisinus/trileaflet aortic valve. Mild diffuse aortic valve thickening. Mild focal aortic valve calcification. Pulmonic Valve The pulmonic valve is not well visualized. Mild (1+) pulmonic valve insufficiency. Great Vessels Normal sized aortic root. Pericardium/Pleural Trivial pericardial effusion. There are no echocardiographic indications of cardiac tamponade. MMode/2D Measurements AND Calculations LVIDd: 5.4 cm IVSd: 1.3 cm LVOT diam: 2.0 cm LVIDs: 3.7 cm LVPWd: 1.4 cm LVOT area: 3.2 cm2 RVDd: 3.4 cm FS: 31.6 % Ao root diam: 3.1 cm LAV(MOD-bp): 117.5 ml LA A4 area: 30.6 cm2 LA dimension: 5.2 cm LAV(MOD-bp) Indexed: 72.6 ml/m2 LAV(MOD-sp2): 111.0 ml LAV(MOD-sp4): 116.9 ml RA A4 area: 18.4 cm2 Doppler Measurements AND Calculations MV E max riley: 137.0 cm/sec Lat Peak E' Riley: 9.9 cm/sec Med Peak E' Riley: 7.4 cm/sec E/E' lat: 13.8 E/E' med: 18.6 MV V2 max: 203.8 cm/sec MV P1/2t max riley: 202.2 cm/sec Ao V2 max: 174.6 cm/sec MV max P.6 mmHg MV P1/2t: 71.9 msec Ao max P.2 mmHg MV V2 mean: 102.3 cm/sec MV dec slope: 823.4 cm/sec2 Ao V2 mean: 118.3 cm/sec MV mean P.3 mmHg MVA(P1/2t): 3.1 cm2 Ao mean P.3 mmHg MV V2 VTI: 43.9 cm Ao V2 VTI: 31.6 cm MVA(VTI): 1.7 cm2 ZEV(I,D): 2.4 cm2 ZEV(V,D): 2.6 cm2 LV V1 max: 143.8 cm/sec MR max riley: 503.7 cm/sec SV(LVOT): 76.4 ml LV V1 max P.3 mmHg MR max P.5 mmHg LV V1 mean P.8 mmHg MR mean riley: 387.0 cm/sec LV V1 mean: 90.3 cm/sec MR mean P.9 mmHg LV V1 VTI: 23.8 cm MR VTI: 158.6 cm PA V2 max: 95.2 cm/sec TR max riley: 312.0 cm/sec TR max P.5 mmHg Interpretation Summary Left ventricular systolic function is normal. The estimated ejection fraction is 60 %. Mild concentric left ventricular hypertrophy. Apical false tendon noted. The left atrium is severely enlarged. The right atrium is mildly enlarged. Mild diffuse mitral valve thickening. Mild focal mitral valve calcification of the anterior leaflet. Moderately severe (3+) eccentric mitral valve insufficiency. Moderate (2+) tricuspid valve insufficiency. Mild diffuse aortic valve thickening. Mild focal aortic valve calcification. Mild (1+) pulmonic valve insufficiency. Trivial pericardial effusion. There are no echocardiographic indications of cardiac tamponade. Right ventricular systolic pressure estimated to be 48 mmHg. There is evidence of diastolic dysfunction. Ordering Physician: Fermin Harrell Referring Physician: ROSAURA QUINONES Performed By: Samson Tse RCS 07/18/18 1221 Date Sami Oleary MD CC: Shyla Morales MD; Fermin Harrell DO; Kike Vasquez MD Date Dictated: 07/18/18 0823 Date Transcribed: 07/18/181220 Shot Man: Signed STRESS REPORT Observed: 07/18/2018 Status: F Source: [place] 12:15 PM [facility] REPOSITORY [facility] Cardiovascular Services [address] [place] [id number] MR#: [id number] Acct: [id number] Name: SUSANNE COLINDRES Rep #: [id number] : 1950 67 From: Helio Jurado MD Primary Care: Shyla Morales MD Status: ADM IN Ordering Dr: Sex: F C Stress Test Report Pharmacologic myocardial perfusion stress test. 67-year-old lady with a history of atrial fibrillation and valvular heart disease. Stress protocol. Resting EKG demonstrates atrial for ablation with a rate of 96 bpm normal intervals and noted resting blood pressure 720/70 8 mmHg. 0.4 mg of regadenoson was infused per usual protocol followed by rapid intravenous saline flush injection continuous EKG monitoring was performed. The maximum heart rate attained was 105 bpm which was 68% of maximum predicted heart rate the maximum workload was 1 metabolic equivalent. The patient maintained atrial for ablation throughout the recording. At rest there were no ST or T wave changes noted suggest abnormal flow reserve at peak infusion no ST or T wave changes were noted suggest abnormal flow reserve. No clinical angina was noted. Resting blood pressure 120/78 final blood pressure 125/74. Myocardial perfusion protocol. 12.0 mCi of technetium 99m sestamibi was injected at rest. 0.4 mg of regadenoson was infused per usual protocol peak infusion 36.0 mCi of technetium 99m sestamibi was injected stress images were obtained stress and rest images were reconstructed and compared in the short axis vertical long horizontal long axis. Gated images were also obtained next Perfusion SPECT analysis: Review of the stress images demonstrate normal uptake of tracer noted in all areas of the myocardium the resting images similarly demonstrate normal uptake of tracer noted in all areas of the myocardium. Gated images were not obtained. Conclusion: Normal pharmacologic myocardial perfusion stress test. Preserved ejection fraction. 07/18/181214 <Electronically signed by Helio Jurado MD> Date Helio Jurado MD CC: Shyla Morales MD; Kike Vasquez MD Date Dictated: 07/18/181212 Date Transcribed: 07/18/181212 Shot Man: CO Signed PARTIAL THROMBOPLAST Collected: 07/18/2018 Status: F Source: [place] TIME 5:08 AM [facility] REPOSITORY TYPE CODE TESTS RESULT OUT OF REFERENCE UNITS RANGE LAB L300.4310 24.1-36.2 Seconds High PTT 43.9 Performed By: #### L300.4310 #### [facility] [address] [place], [address] CBC-COMPLETE BLOOD CNT Collected: 07/18/2018 Status: F Source: [place] NO DIFF 5:08 AM [facility] REPOSITORY TYPE CODE TESTS RESULT OUT OF RANGE REFERENCE UNITS LAB L100.1000 4.4-11.0 K/mm3 Normal WBC 6.2 LAB L100.1200 4.2-5.4 M/mm3 Low RBC 3.58 LAB L100.1300 12.0-15.0 g/dl Low HGB 11.3 LAB L100.1400 37-47 % Low HCT 33.3 LAB L100.1500 81-99 fL Normal MCV 93.0 LAB L100.1600 27.0-32.0 pg Normal MCH 31.6 LAB L100.1700 32-36 g/gl Normal MCHC 33.9 LAB L100.1810 11.6-14.6 % Normal RDW CV 14.2 LAB L100.1820 35.1-43.9 fl High RDW SD 46.1 LAB L100.1900 150-450 K/mm3 Normal PLT 182 LAB L100.2000 6.2-12.0 fl Normal MPV 10.6 Performed By: #### L100.0500, L300.3900 #### [facility] [address] [facility] [facility] [place], [place], [address] PROTHROMBIN TIME W/INR Collected: 07/18/2018 Status: F Source: [place] 5:08 AM [facility] REPOSITORY TYPE CODE TESTS RESULT OUT OF RANGE REFERENCE UNITS LAB L300.4150 11.7-14.9 SECONDS Normal PROTIME 14.4 LAB L300.4200 Normal INR 1.1 Performed By: #### L100.0500, L300.3900 #### [facility] [address] [facility] [facility] [place], [address] BASIC METABOLIC Collected: 07/18/2018 Status: F Source: [place] PROFILE (BMP) 5:08 AM [facility] REPOSITORY TYPE CODE TESTS RESULT OUT OF RANGE REFERENCE UNITS LAB L501.0100 74-106 mg/dL High GLU 165 Result Comment: Fasting Glucose result greater than or equal to 126 mg/dL suggests DIABETES MELLITUS per A.D.A. criteria. Please note revised GLUCOSE reference range effective 2017. LAB L501.1000 7-18 mg/dL Normal BUN 17 LAB L501.1100 0.55-1.02 mg/dL Normal CREAT,SERUM 0.82 Result Comment: The validity of the calculated GFR AND GFRAA in patients over 70 years has not been determined. Clinical correlation is essential. LAB L501.1110 >60 mL/min Normal EST GFR 74 Result Comment: Non- GFR Calc LAB L501.1115 >60 mL/min Normal EST GFR - AA 89 Result Comment: GFR Calc LAB L501.1255 ml/min Normal Estimated CRCL 63.18 LAB L501.1300 10-20 RATIO High BUN/CRE 20.6 LAB L501.2200 8.5-10 mg/dL Normal .1 CA 8.6 LAB L501.5300 136-14 mmol/L Normal 5 NA 139 LAB L501.5600 3.5-5. mmol/L Normal 1 K 4.1 LAB L501.5900 98-107 mmol/L Normal CL 106 LAB L501.6100 21.0-3 mmol/L Normal 2.0 CO2 24.0 LAB L501.6200 5-15 Normal GAP 9 Performed By: #### L500.2500, L501.53639, L506.0400 #### [facility] [address] [facility] [place], [address] FREE T3 Collected: 07/18/2018 Status: F Source: [place] 5:08 AM [facility] REPOSITORY TYPE CODE TESTS RESULT OUT OF RANGE REFERENCE UNITS LAB L501.43574 2.18-3.98 pg/mL Low FREE T3 1.7 Performed By: #### L500.2500, L501.69999, L506.0400 #### [facility] [address] [place], [address] T4 FREE DIRECT Collected: 07/18/2018 Status: F Source: [place] 5:08 AM [facility] REPOSITORY TYPE CODE TESTS RESULT OUT OF RANGE REFERENCE UNITS LAB L506.0400 0.76-1.46 ng/dL Normal T4 FREE 1.44 DIRECT Performed By: #### L500.2500, L501.54419, L506.0400 #### [facility] [address] [place], [address] EMERGENCY DEPARTMENT Observed: 07/17/2018 Status: F Source: [place] 10:48 PM [facility] REPOSITORY [facility] Medical Records Department [address] [place] [address] Emergency Department Summary 07/17/18 1608 MR#: [id number] Acct: [id number] Name: SUSANNE COLINDRES Rep #: [id number] : 1950 67 From: Jung Vallejo DO PCP: Shyla Morales MD Status: ADM IN - ER Visit Summary Date of Service: 07/17/18 Chief Complaint: Palpitations History of Present Illness: The patient is a 67 F who presents to the emergency department after being referred by her equipment inspector. Patient presented to their office today and was found to be in new onset atrial fibrillation/flutter with rapid ventricular response. Patient states that she has a history of rheumatic mitral valve regurgitation. She states that over the past couple weeks she has felt fatigued but was blaming it on the weather. She has been taking her blood pressure and heart rate in over the past several days heart rate monitor has said that her heart has been beating rather fast and she has been feeling that. Noted history of chronic kidney disease hypertension high cholesterol. She had outpatient labs of the CBC and a BMP drawn today ordered through nephrology. Creatinine 1.13. Hemoglobin 11. 6. White count 11.1. She denies any black or bloody stools or any easy bruising or bleeding. Physical Examination: Afebrile noted heart rate 144 blood pressure 151/108 Gen: Well-nourished well-developed Head: Normocephalic atraumatic Eyes: Perrl EOMI ENT: TMs clear no rhinorrhea moist mucous membranes Neck: Supple no lymphadenopathy no JVD nontender CVS: Irregularly irregular tachycardic heart rhythm Respiratory: No distress clear to auscultation bilaterally chest nontender Abdomen: Soft nontender nondistended normal bowel sounds no masses Back: Nontender Extremity: Nontender bilateral symmetrical edema Skin: Normal color no rash Neuro: alert orientated 3 CN II-XII intact normal strength sensation reflexes gait cerebellar Psych: Normal affect normal mood Test Results: EGD demonstrates atrial fibrillation/flutter with a rate of 128 Emergency Department Course and Treatment: Patient received metoprolol and was placed on a heparin drip. She also received aspirin. Plan is admission into the hospital Impression: 1. New onset atrial fibrillation with rapid ventricular response This note was generated with [employer] dictation software. It may contain incorrect words, spelling, and punctuation that were not noted in review of the chart prior to signing ED Disposition - Plan for ED Patient: Chief Complaint: Palpitations Referrals: Shyla Morales MD [Primary Care Provider] - What to do if you have Problems For any increased pain, shortness of breath, bleeding, nausea or vomiting, chest pain, or any unexpected problems, contact your Primary Care Provider. Call [facility] ([phone]) or report to the closest Emergency Room. Call 911 if necessary. 07/17/18 2248 <Electronically signed by Jung Vallejo DO> Date Jung Vallejo DO Cosigner Signature (If Indicated): Date CC: Shyla Morales MD PARTIAL THROMBOPLAST Collected: 07/17/2018 Status: F Source: [place] TIME 10:35 PM [facility] REPOSITORY TYPE CODE TESTS RESULT OUT OF REFERENCE UNITS RANGE LAB L300.4310 24.1-36.2 Seconds High alert PTT 122.2 Result Comment: CRITICAL VALUE VERIFIED. CALLED TO [employer] 07/17/18 5085 Suzanne Oneil. RESULTS READ BACK BY SAME . Performed By: #### L300.4310 #### [facility] [address] [place], [address] TROPONIN-I Collected: 07/17/2018 Status: F Source: [place] 10:35 PM [facility] REPOSITORY Order Comment: 'TROP' Serial specimen #1, #2 or #3: 2 TYPE CODE TESTS RESULT OUT OF RANGE REFERENCE UNITS LAB L501.4010 <0.045 ng/mL Normal < 0.015 TROPONIN-I Result Comment: TROPONIN-I EXPECTED VALUES <0.045 Negative 0.045 - 0.590 Consistent with Cardiac Damage > OR = 0.600 Critical Value Not every elevated troponin is indicative of HI. These values should be used with clinical judgement in examining the patient's clinical picture for diagnosis. To establish a diagnosis of HI versus myocardial injury, there must be a demonstrated rise and/or fall in the troponin values, in addition to ischemic symptoms, EKG changes, new regional wall motion abnormality, and/or angiographical evidence. PLEASE NOTE: REFERENCE RANGES EDITED 18 Performed By: #### L501.4010 #### [facility] [address] [place], [address] CONSULTATION Observed: 07/17/2018 Status: F Source: [place] 8:41 PM [facility] REPOSITORY [facility] Medical Records Department [address] [place] [address] Consultation 07/17/182028 MR#: [id number] Acct: [id number] Name: SUSANNE COLINDRES Rep #: [id number] : 1950 67 From: Sami Oleary MD PCP: Shyla Morales MD Status: ADM IN Location: [place] [address] Problem List (1) Atrial fibrillation Status: Acute Qualifiers: Atrial fibrillation type: persistent Qualified Code(s): I48.1 - Persistent atrial fibrillation (2) SOB (shortness of breath) Status: Acute (3) Mitral valve insufficiency Status: Chronic (4) Hyperlipidemia Status: Chronic Qualifiers: (5) Hypertension Status: Chronic Qualifiers: (6) Hypothyroidism Status: Chronic Reason for Consult Date of Consultation: 07/17/18 History of Present Illness: The patient is a 67 year old white female who presented to the outpatient cardiovascular setting with concerns of shortness of breath/dyspnea and elevated heart rate. She has been having progressive shortness of breath and dyspnea and elevated heart rate over the last approximately 2 weeks. She has been recording her heart rate and blood pressure. She notes her heart rate has been higher over the last 2 weeks. She notes when it is higher her blood pressure waxed and wanes. Sometimes it is low. During the low time she has noted some symptoms of lightheadedness. She denies any ongoing chest discomfort other than the uncomfortable feeling of her shortness of breath/dyspnea. There is been no obvious orthopnea or PND or worsening peripheral pitting edema. There has been no near syncope or syncope. In the outpatient setting an ECG was performed. She was noted to be in atrial fibrillation/flutter with rapid ventricular response. She was subsequently recommended for further inpatient evaluation and care. She was subsequently transported to the [facility] emergency department. There she initiated evaluation with laboratory studies, radiologic studies, and subsequent medical therapy. Her medications have included IV diltiazem and IV heparin. On IV diltiazem her heart rate has decreased. Troponin I level was negative. Her TSH level was somewhat elevated. Her chest x-ray suggested no acute cardiopulmonary disease process. [] Past Medical History Allergies/Adverse Reactions: Allergies Penicillins [PCN] Allergy (Verified 07/17/18 15:53) Unknown lisinopril Adverse Reaction (Intermediate, Verified 07/17/18 15:53) cough Home Medications: Ambulatory Orders Medication Instructions Recorded Atorvastatin Calcium [Lipitor] 40 mg PO DAILY 08/16/17 Fluoxetine [Prozac] 20 mg PO DAILY 08/16/17 Losartan Potassium [Cozaar] 50 mg PO BID 08/16/17 Past Medical History (Chronic Problems): Chronic Problems (Last Reviewed 07/17/18 @ 17:32 by Fermin Harrell DO) Depression (Chronic) Proteinuria (Chronic) Hypothyroidism (Chronic) Mitral valve insufficiency (Chronic) Rheumatic mitral regurgitation (Chronic) Hyperlipidemia (Chronic) Hypertension (Chronic) Psychiatric History: Depression HIGH SCHOOL PRINCIPAL History: No pertinent HIGH SCHOOL PRINCIPAL history - *Family History Maternal Family History: Family History (Last Reviewed 07/17/18 @ 17:32 by Fermin Harrell DO) Father Heart disease History Items: Dementia, - - thyroid Paternal Family History: Family History (Last Reviewed 07/17/18 @ 17:32 by Fermin Harrell DO) Father Heart disease History Items: - - thyroid Sibling Family History: Family History (Last Reviewed 07/17/18 @ 17:32 by Fermin Harrell DO) Father Heart disease History Items: - - thyroid Lives: Spouse/ Significant Other Smoking Status: Never smoker Tobacco Use: Non-smoker Alcohol: None Drugs: None Review of Systems - Review of Systems General: Denies: Fever, Night Sweats, Fatigue Cardiovascular: Reports: Shortness of Breath, Shortness of Breath at Rest, Shortness of Breath with Exertion, Palpitations, Lightheadedness. Denies: Chest Discomfort, Orthopnea, PND, Peripheral Edema, Dizziness, Near Syncope, Syncope Respiratory: Reports: Shortness of Breath. Denies: Cough, Sputum Production, Hemoptysis Gastrointestinal: Reports: Indigestion Genitourinary: Denies: Dysuria, Hematuria Skin: Denies: Rash Subjectve: This is a 67-year-old white female who appears to be resting comfortably at the moment in no acute distress. Objective: Vital Signs Temp Pulse Resp BP Pulse Ox 98.1 F 88 17 116/83 H 95 07/17/18 18:54 07/17/18 20:00 07/17/18 20:00 07/17/18 20:00 07/17/18 20:00 Oxygen Delivery Method Room Air Weight: 143 lb 8.335 oz Body Mass Index (BMI) 22.8 General: Awake, Alert, Oriented x 3, Cooperative, No Acute Distress HEENT: Atraumatic, Normocephalic, PERRL, EOMI, Sclera Non Icteric Oral: Moist Mucosa Neck: Supple, Good ROM, No JVD Lungs: Clear to auscultation Cardiovascular: Irregular Rhythm, Normal S1, Normal S2 Murmur Murmur: Grade 3/6, Holosystolic, [place], [place] Vascular: No Carotid Bruits Abdomen: Bowel Sounds Present, Soft, Non Tender Extremities: No Cyanosis, No Clubbing, No edema Neurological: No Focal Motor or Sensory Deficit Psych/Mental Status: Appropriate, Normal Affect 07/17/18 16:05: PT 14.4, INR 1.1, APTT 28.9 07/17/18 16:05: Magnesium 1.9, Total Bilirubin 0.70, Direct Bilirubin 0.21, Troponin I < 0.015 07/17/18 19:58: Troponin I < 0.015 Rhythm: Atrial fibrillation/flutter with rapid ventricular response EKG: Atrial fibrillation/flutter with rapid ventricular response ECHO: 11/07/2017: Left ventricle: Normal with an LVEF 55%; mild concentric LVH; apical false tendon; moderate left atrial enlargement; mild diffuse mitral valve thickening with mild focal mitral valve calcification of the anterior leaflet with mitral valve cord thickening/calcification with moderate MR, mild TR, mild CA, and an estimated RV systolic pressure of 35 mmHg CXR: As noted above: Please see official report Assessment/Plan 1. Shortness of breath/dyspnea The patient presents with shortness of breath/dyspnea. The etiology may very well be related to her atrial dysrhythmia with rapid ventricular response superimposed upon her underlying cardiovascular disease process with mitral valve regurgitation. At the moment there is been no evidence of acute coronary syndrome/HI. She has had no evidence of acute CHF. There is been no evidence suggesting noncardiovascular etiologies such as thromboembolic disease, underlying primary pulmonary disease, etc. thus far. She will continue to be monitored for obvious etiologies. In the meantime she will undergo evaluation care of her underlying cardiovascular disease process. Thus will include her atrial dysrhythmia with attempts at slowing her atrial rate with the hopes of at some point in time regaining sinus rhythm. In the meantime she will need further evaluation. This will include a follow-up transthoracic echocardiogram to reassess her chamber size and her mitral valve anatomy and physiology. She is also not undergone evaluation for any obvious evidence of coronary artery disease in the past that she recalls. Thus a pharmacologic stress nuclear imaging study would not be unreasonable to assess for any obvious evidence of myocardial ischemia that would warrant further invasive evaluation and care. 2. Atrial fibrillation/flutter with rapid ventricular response She will continue to be monitored. Her cardiac enzymes and ECGs are being followed. An echocardiogram will reassess her chamber size and function as well as her valvular anatomy and physiology. A pharmacologic stress nuclear imaging study will assess for any obvious ongoing evidence of myocardial ischemia contributing to her symptoms or findings. In the interim she will continue medical management with rate control and anticoagulant therapy. Over time consideration will be given to regaining sinus rhythm, if she does not do so spontaneously, with a synchronized biphasic DC cardioversion. 3. Mitral valve regurgitation She does have evidence of mitral valve regurgitation based on history, exam, and previous echocardiogram. This will be reassessed noninvasively. It is noted that her mitral valve regurgitation may be a contributing factor to her atrial dysrhythmia. Thus over time it may make it challenging to control her atrial dysrhythmia with her underlying MR. 3. Hyperlipidemia She will continue evaluation care as deemed appropriate. 4. Hypertension Blood pressure may also be a contributing factor to her atrial dysrhythmia. She will need to continue antihypertensive therapy. 5. Thyroid disorder She has had a thyroid disorder. The TSH levels have demonstrated in the past that she was hypothyroid, and potentially hyperthyroid, and now hypothyroid. Her thyroid function levels will need to be followed and her medications will be adjusted by her primary care physicians to maintain a euthyroid state to minimize any negative impact on her cardiovascular disease process. Comment: The patient's case was discussed with the patient. This note was generated with [employer] dictation software. It may contain incorrect words, spelling, and punctuation that were not noted in checking the note before signing. 07/17/182040 <Electronically signed by Sami Oleary MD> Date Smai Oleary MD Cosigner Signature (if applicable): Date CC: Shyla Morales MD; Sami Oleary MD Signed TROPONIN-I Collected: 07/17/2018 Status: F Source: [place] 7:58 PM [facility] REPOSITORY Order Comment: 'TROP' Serial specimen #1, #2 or #3: 2 TYPE CODE TESTS RESULT OUT OF RANGE REFERENCE UNITS LAB L501.4010 <0.045 ng/mL Normal < 0.015 TROPONIN-I Result Comment: TROPONIN-I EXPECTED VALUES <0.045 Negative 0.045 - 0.590 Consistent with Cardiac Damage > OR = 0.600 Critical Value Not every elevated troponin is indicative of HI. These values should be used with clinical judgement in examining the patient's clinical picture for diagnosis. To establish a diagnosis of HI versus myocardial injury, there must be a demonstrated rise and/or fall in the troponin values, in addition to ischemic symptoms, EKG changes, new regional wall motion abnormality, and/or angiographical evidence. PLEASE NOTE: REFERENCE RANGES EDITED 18 Performed By: #### L501.4010 #### [facility] [address] [place], [address] CARDIOLOGY VISIT Observed: 07/17/2018 Status: F Source: [place] 5:51 PM [facility] REPOSITORY [facility] [address] [place] [address] OFFICE VISIT Date of Service: 07/17/18 MR#: [id number] Acct: [id number] Name: SUSANNE COLINDRES Rep #: [id number] : 1950 Provider: Sami Oleary MD Age/Sex: 67/F Location: [facility] Status: Signed HPI HPI Chief Complaint: SOLUMEDROL Details: SUSANNE OCLINDRES, is a 67 F who presents to the office today for outpatient cardiovascular follow-up based upon concerns of elevated heart rate and shortness of breath. She states that she has noted over the last approximately 2 weeks concerns of her heart rate being elevated and being more short of breath and dyspneic. She has denied ongoing chest discomfort. There has been no near syncope or syncope. She notes she has been tracking her blood pressure and her heart rate. She notes her heart rates have been elevated. She has had intermittently lower pressures when her heart rates have been elevated. During that time she has felt somewhat lightheaded. She presented to the office today for evaluation. An ECG was performed. She was noted to be in atrial fibrillation/flutter with rapid ventricular response. Intake Vital Signs07/17/18 Height 5 ft 07/17/18 Weight: 144 lb 07/17/18 Body Mass Index (BMI) 28.1 07/17/18 Blood Pressure 112/60 Intake Visit Reasons: tachy,hypotensive, Allergies Penicillins [PCN] Allergy (Verified 07/17/18 15:53) Unknown lisinopril Adverse Reaction (Intermediate, Verified 07/17/18 15:53) cough Medications Atorvastatin Calcium [Lipitor] 40 mg PO DAILY 08/16/17 [History Confirmed 07/17/18] Fluoxetine [Prozac] 20 mg PO DAILY 08/16/17 [History Confirmed 07/17/18] Losartan Potassium [Cozaar] 50 mg PO BID 08/16/17 [History Confirmed 07/17/18] acetaminophen 500 mg capsule 500 mg PO Q6H PRN 10/17/17 [History Confirmed 07/17/18] atenolol 50 mg tablet 25 mg PO DAILY 10/17/17 [History Confirmed 07/17/18] Ascorbic Acid [Vitamin C] 500 mg PO DAILY@0800 02/10/18 [History Confirmed 07/17/18] calcium carbonate 600 mg (1,500 mg)-vitamin D3 200 unit tablet 1 tab PO QDAY 04/24/18 [History Confirmed 07/17/18] levothyroxine 125 mcg tablet 125 mcg PO QDAY 04/24/18 [History Confirmed 07/17/18] Amlodipine [Norvasc] 2.5 mg PO QHS 07/17/18 [History Confirmed 07/17/18] Amlodipine [Norvasc] 5 mg PO DAILY 07/17/18 [History Confirmed 07/17/18] Bupropion HCl [Bupropion HCl Sr] 150 mg PO DAILY 07/17/18 [History Confirmed 07/17/18] H.P. Acthar Gel 80 units SQ UD 07/17/18 [History Confirmed 07/17/18] Spironolactone 25 mg PO DAILY 07/17/18 [History Confirmed 07/17/18] PFSH Medical History SOB (shortness of breath) (Acute) Edema (Acute) Rheumatic mitral regurgitation (Chronic) Hyperlipidemia (Chronic) Hypertension (Chronic) Hypothyroidism (Acute) CKD (chronic kidney disease) (Chronic) Surgical History History of carpal tunnel surgery (Resolved) History of dilatation and curettage (Resolved) History of hip replacement, total (Resolved) History of tubal ligation (Resolved) Family History Father Heart disease Social History Smoking Status: Never smoker alcohol intake: never substance use type: does not use ROS Const Const: Negative for fatigue, weakness, weight gain, weight loss, frequent falls or excessive sweating Eyes Eyes: Negative for change in vision, blurry vision or transient loss of vision ENT ENT: Positive for dizziness (bending over) and balance problems (shakey; unsteady) Cardio Chest Pain: No Palpitations: Yes feels like its: skipping Edema: None Muscle aches with walking: None Resp Respiratory: Positive for SOB with activity (occasional; but more frequent in the past 2 weeks); negative for SOB at rest GI GI: Negative vomiting or vomiting blood/hematemesis : Negative for hematuria Musc Musc: Positive for balance problems (shakey; unsteady); negative for muscle aches/ myalgia, muscle weakness or joint pain Skin Skin: Negative non-healing lesions or rash Neuro Neuro: Positive for dizziness (bending over); negative for weakness, blurry vision, lightheadedness, frequent falls or orthostatic symptoms Johnny Hematologic/Lymphatic: Negative for easy bleeding Endo Endo: Negative for fatigue or excessive sweating Psych Psych: Negative for anxiety or depression Allergy Allergy/Immunology: Negative for hives, Negative for rash Cardiology Exam Const Appearance: cooperative, healthy appearing, comfortable, well developed and well groomed Nutritional Appearance: average body habitus Orientation: alert, awake and oriented x3 Head Head: normal to inspection, normocephalic and atraumatic Ears: hearing grossly normal bilaterally Nose: external nose normal Face and Sinus: face symmetric Mouth: oral mucosae normal Teeth and gingiva: fair dentition Eyes Eyelids: eyelids normal Conjunctivae: conjunctivae normal Pupils: PERRL EOM: EOM intact bilaterally Neck Neck: normal visual inspection Carotids: normal carotid upstroke Chest Chest inspection: normal inspection of the chest and symmetric chest movement Auscultation: Bilateral: Clear to Auscultation Cardio Palpation: normal PMI Rhythm: irregular rhythm Heart sounds: S1 normal and S2 normal Murmur: Grade 3/6, holosystolic, apex and axilla GI GI: normal to inspection, bowel sounds present and soft Neuro General: alert, awake and oriented x3 Skin Skin: no rashes or lesions noted Extremities Pulses: Normal: Right Radial Pulse, Left Radial Pulse Lower Extremity Edema: Trace: Bilateral Psych Psychological: normal affect Supplemental Info Echocardiogram from 11/07/2017 Interpretation Summary Left ventricular systolic function is normal. The estimated ejection fraction is 55 %. Mild concentric left ventricular hypertrophy. Apical false tendon noted. The left atrium is moderately enlarged. Mild diffuse mitral valve thickening. Mild focal mitral valve calcification of the anterior leaflet. The mitral valve chordae are thickened and/or calcified. Moderate (2+) eccentric mitral valve insufficiency. Mild tricuspid valve insufficiency. Mild (1+) pulmonic valve insufficiency. Right ventricular systolic pressure estimated to be 35 mmHg. Assessment AND Plan 1. Atrial fibrillation and flutter I48.91; I48.92 Plan She has demonstrated the appearance of atrial fibrillation/flutter with rapid ventricular response. This may have occurred sometime within the last 2 weeks based upon her symptoms and her home heart rate and blood pressure record. At present time based upon her rapid rate it was recommended that she present to the [facility] emergency department for further evaluation and care. She knows this may lead to inpatient evaluation and care as well. She would need continued rate limiting therapy and anticoagulant therapy. Additional evaluation may depend upon her clinical course and other findings 2. Rheumatic mitral regurgitation I05.1 Plan She does have a history of mitral valve regurgitation. Again it is unclear as to whether this is a contributing factor for the development of her atrial fibrillation/flutter. She will need to have this monitored by her history, exam, and echocardiogram. 3. Hyperlipidemia, unspecified hyperlipidemia type E78.5 Plan She does have a report of hyperlipidemia. She is going to continue risk factor evaluation care as deemed appropriate 4. Essential hypertension I10 Plan She has a history of hypertension. She will continue medical management with adjustment as deemed appropriate and around the time of her atrial dysrhythmia. Orders Orders: 5. Disorder of thyroid E07.9 Plan She does have an underlying thyroid disorder. Her previous thyroid function studies have been reviewed. It is noted in the past that her TSH level was elevated as well as her free T4 level. Thus there is some question as to her current thyroid function status and whether this plays a role with her atrial dysrhythmia. This will need to be further assessed 6. Shortness of breath R06.02 Plan She has been more short of breath. This may be a combination of her atrial dysrhythmia as well as potentially her mitral valve regurgitation. Thus at the present time she will need further evaluation care of these conditions. Again it was felt prudent that this be evaluated in the emergency department as well as an inpatient. Orders Orders: Plan Detail Additional Comments The above was discussed with her and she was agreeable to this. That she was escorted to the [facility] emergency department for further evaluation and care. Her case was discussed with Dr. Armstrong of the [facility] emergency department staff. Thank you for allowing me to participate in the care of your patient. Please don't hesitate to call if any issues arise. This note was generated using a voice recognition system and there may be incorrect words, spelling or punctuation that were not noted when reviewing the office note prior to saving. Coding Level of Care Code No Charge Diagnoses Atrial fibrillation and flutter I48.91; I48.92 Rheumatic mitral regurgitation I05.1 Hyperlipidemia, unspecified hyperlipidemia type E78.5 Hyperlipidemia type: unspecified Essential hypertension I10 Hypertension type: essential hypertension Disorder of thyroid E07.9 Shortness of breath R06.02 Coding Level of Care Code No Charge Diagnoses Atrial fibrillation and flutter I48.91; I48.92 Rheumatic mitral regurgitation I05.1 Hyperlipidemia, unspecified hyperlipidemia type E78.5 Hyperlipidemia type: unspecified Essential hypertension I10 Hypertension type: essential hypertension Disorder of thyroid E07.9 Shortness of breath R06.02 07/17/18 1751 <Electronically signed by Sami Oleary MD> Date Sami Oleary MD Cosigner Signature: Date (if applicable) CC: Shyla Morales MD HISTORY AND PHYSICAL Observed: 07/17/2018 Status: F Source: [place] EXAM 5:36 PM [facility] REPOSITORY [facility] Medical Records Department [address] [place] [address] History and Physical 07/17/18 1716 MR#: [id number] Acct: [id number] Name: SUSANNE COLINDRES Rep #: [id number] : 1950 67 From: Silvio JARQUIN PCP: Shyla Morales MD Status: REG ER Y Location: ED <Silvio Slater - Last Filed: 07/17/18 17:16> Problem List (1) Atrial fibrillation Status: Acute (2) Depression Status: Chronic (3) Proteinuria Status: Chronic (4) Hypothyroidism Status: Chronic (5) Hyperlipidemia Status: Chronic (6) Hypertension Status: Chronic History of Present Illness Date of Admission: 07/17/18 Chief Complaint: palpitations The patient is a 67 year old F with a history of hypertension, hypothyroidism, nonspecified chronic kidney disease marked by proteinuria, depression, who presents to the emergency room with chief complaint of heart palpitations. Patient started that this started about 10 days ago. She noticed that her heart felt like it was racing and fluttering, she hooked herself up to her blood pressure cuff which read her pulse as being tachycardic. This occurred off and on for the next several days. She had also started noticing that she was becoming more tired, lightheaded and dizzy, short of breath with exertion. As it has been 10 days and there has been no relief she felt that she should come to the ER. She currently denies chest pain, pressure, tightness. Her EKG does show atrial fibrillation with tachycardia. She has no history of atrial fibrillation. She received 3 doses of Lopressor which temporarily lowered her heart rate although soon after it would return to the 120s-130 range. Denies recent illness or infection. [] Past Medical History Past Medical History (Chronic Problems): Chronic Problems (Last Reviewed 07/17/18 @ 15:02 by Taylor Green) Depression (Chronic) Proteinuria (Chronic) Hypothyroidism (Chronic) Rheumatic mitral regurgitation (Chronic) Hyperlipidemia (Chronic) Hypertension (Chronic) Medical History: Medical History (Last Reviewed 07/17/18 @ 15:02 by Taylor Green) SOB (shortness of breath) (Acute) R06.02 Edema (Acute) R60.9 Rheumatic mitral regurgitation (Chronic) I05.1 Hyperlipidemia (Chronic) E78.5 Hypertension (Chronic) I10 Hypothyroidism E03.9 CKD (chronic kidney disease) N18.9 Allergies Penicillins [PCN] Allergy (Verified 07/17/18 15:53) Unknown lisinopril Adverse Reaction (Intermediate, Verified 07/17/18 15:53) cough Home Medications: Ambulatory Orders Medication Instructions Recorded Atorvastatin Calcium [Lipitor] 40 mg PO DAILY 08/16/17 Fluoxetine [Prozac] 20 mg PO DAILY 08/16/17 Surgical History: Surgical History (Last Reviewed 07/17/18 @ 15:02 by Taylor Green) History of carpal tunnel surgery Z92.89 History of dilatation and curettage Z98.890 History of hip replacement, total Z96.649 Rt Hip History of tubal ligation Z98.51 Surgical History: total hip arthroplasty, - - tubal Psychiatric History: Depression HIGH SCHOOL PRINCIPAL History: No pertinent HIGH SCHOOL PRINCIPAL history Lives: Spouse/ Significant Other Smoking Status: Never smoker Tobacco Use: Non-smoker Alcohol: None Drugs: None - *Family History Maternal Family History: Family History (Last Reviewed 07/17/18 @ 15:02 by Taylor Green) Father Heart disease History Items: Dementia, - - thyroid Paternal Family History: Family History (Last Reviewed 07/17/18 @ 15:02 by Taylor Green) Father Heart disease History Items: - - thyroid Sibling Family History: Family History (Last Reviewed 07/17/18 @ 15:02 by Taylor Green) Father Heart disease History Items: - - thyroid Review of Systems Constitutional: Reports: Weakness, Fatigue. Denies: Chills, Fever, Weight Change HEENT: Denies: Head Aches, Sinus Congestion, Sinus Drainage Cardiovascular: Reports: Light Headedness, Palpitations. Denies: Chest Pain, Chest Pressure, Chest Tightness, Edema, Heaviness, Paroxysmal Noc. Dyspnea, Syncope Respiratory: Reports: Shortness of breath upon exertion. Denies: Cough, Shortness of breath at rest, Sputum production Gastrointestinal: Denies: Abdominal Pain, Nausea, Vomiting Genitourinary: Denies: Dysuria Musculoskeletal: Denies: Joint Pain, Joint Tenderness Skin: Denies: Rash, Wounds Neurological: Denies: Numbness, Tingling, Focal weakness Psychiatric: Denies: Anxiety, Depression, Homicidal Ideations, Suicidal Ideations Hematologic/ Lymphatic: Denies: Easy Bruising, Easy Bleeding VTE Information - Inpt Only VTE Present on Admission: No VTE Mechan Device Prophylaxis: None VTE Pharm Prophylaxis ordered?: Yes Patient Problems: Active and Suspected Problems (Last Reviewed 07/17/18 @ 15:02 by Taylor Green) Atrial fibrillation (Acute) - Physical Exam General: Alert, Oriented x3, Cooperative HEENT: Atraumatic, PERRLA, EOMI, Normocephalic Neck: Supple, No JVD, Negative Carotid Bruits Lungs: Clear to auscultation, Normal air movement Cardiovascular: No murmurs, Irregular Rate Abdomen: Bowel Sounds Present, Soft, Non Tender Extremities: No edema, Capillary Refill Less than 3 Seconds Skin: No rashes, No breakdown Musculoskeletal: No Tenderness to Palpation of Joints or Extremities Neurological: Cranial nerves II-XII grossly intact Psych/Mental Status: Normal Affect, Appropriate, Alert and oriented to time, place, person, mood and affect Vital Signs Temp Pulse Resp BP Pulse Ox 97.9 F 109 H 16 124/83 H 98 07/17/18 15:53 07/17/18 16:53 07/17/18 16:53 07/17/18 16:53 07/17/18 16:53 Oxygen Delivery Method Room Air Weight: 141 lb 8.588 oz Body Mass Index (BMI) 27.6 Laboratory Tests Past 24 Hrs PT 14.4 INR 1.1 APTT 28.9 Magnesium 1.9 Total Bilirubin 0.70 Assessment/Plan All Active Problems (Last Reviewed 07/17/18 @ 15:02 by Taylor Green) Atrial fibrillation (Acute) SOB (shortness of breath) (Acute) Edema (Acute) 1. Afib with rvr refractory to IV beta roxann - start cardizem drip. Heparin drip. Cardiology consult. Echo in AM. No hx. Mag normal. Trop neg. TSH high, check t4. CXR negative, no edema. 2. CKD unspecified etiology with proteinuria - Pt of Dr. Quinones in [place], on acthar for proteinuria. 3. Hypothyroid - as above, tsh high, check t4 4. HTN - stable currently 5. Anx/Dep - wellbutrin/prozac. 6. Chronic LE edema - states she was worked up for heart failure in past but does not have it, takes aldactone for chronic LE edema. DVT ppx: heparin This patient was seen by Silvio Slater PA-C under the supervision of Doctor Gilberto. <Fermin Harrell - Last Filed: 07/17/18 17:36> Problem List (1) Atrial fibrillation Status: Acute Qualifiers: Atrial fibrillation type: persistent Qualified Code(s): I48.1 - Persistent atrial fibrillation History of Present Illness The patient is a 67 year old F presents with 10-day history of palpitations. Patient been noted to be tachycardic and I finally saw cardiology and was noted to have a heart rate in the 140s. Sent to the emergency room and was diagnosed atrial fibrillation. Patient has never had atrial fibrillation before. Patient received 5 mg of IV metoprolol but was still tachycardic into the 120s and 130s and then received a diltiazem bolus and then a drip. Cardiology was notified and ended a heparin drip and the patient did receive a bolus. [] Past Medical History Medical History: Medical History (Last Reviewed 07/17/18 @ 17:32 by Fermin Harrell DO) SOB (shortness of breath) (Acute) R06.02 Edema (Acute) R60.9 Rheumatic mitral regurgitation (Chronic) I05.1 Hyperlipidemia (Chronic) E78.5 Hypertension (Chronic) I10 Hypothyroidism E03.9 CKD (chronic kidney disease) N18.9 Allergies Penicillins [PCN] Allergy (Verified 07/17/18 15:53) Unknown lisinopril Adverse Reaction (Intermediate, Verified 07/17/18 15:53) cough Surgical History: Surgical History (Last Reviewed 07/17/18 @ 17:32 by Fermin Harrell DO) History of carpal tunnel surgery Z92.89 History of dilatation and curettage Z98.890 History of hip replacement, total Z96.649 Rt Hip History of tubal ligation Z98.51 Psychiatric History: Depression HIGH SCHOOL PRINCIPAL History: No pertinent HIGH SCHOOL PRINCIPAL history Lives: Spouse/ Significant Other Smoking Status: Never smoker Tobacco Use: Non-smoker Alcohol: None Drugs: None - *Family History Maternal Family History: Family History (Last Reviewed 07/17/18 @ 17:32 by Fermin Harrell DO) Father Heart disease Paternal Family History: Family History (Last Reviewed 07/17/18 @ 17:32 by Fermin Harrell DO) Father Heart disease Sibling Family History: Family History (Last Reviewed 07/17/18 @ 17:32 by Fermin Harrell DO) Father Heart disease Review of Systems Constitutional: Reports: Weakness, Fatigue. Denies: Chills, Fever, Weight Change Eyes: Denies: Blurred vision, Double vision HEENT: Denies: Head Aches, Sinus Congestion, Sinus Drainage Cardiovascular: Reports: Light Headedness, Palpitations. Denies: Chest Pain, Chest Pressure, Chest Tightness, Edema, Heaviness, Paroxysmal Noc. Dyspnea, Syncope Respiratory: Reports: Shortness of breath upon exertion. Denies: Cough, Shortness of breath at rest, Sputum production Gastrointestinal: Denies: Abdominal Pain, Nausea, Vomiting Genitourinary: Denies: Dysuria Musculoskeletal: Denies: Joint Pain, Joint Tenderness Skin: Denies: Rash, Wounds Neurological: Denies: Focal weakness, Numbness, Tingling Psychiatric: Denies: Anxiety, Depression, Homicidal Ideations, Suicidal Ideations Hematologic/ Lymphatic: Denies: Easy Bruising, Easy Bleeding Comment: All review of systems are negative except as mentioned in the history of present illness and the other review of systems. VTE Information - Inpt Only VTE Present on Admission: No VTE Mechan Device Prophylaxis: None VTE Pharm Prophylaxis ordered?: Yes - Physical Exam General: Alert, Oriented x3, Cooperative, Well developed, Well nourished HEENT: Atraumatic, Normocephalic Oral: Moist Mucosa, No Gingival or Mucosal Lesions/ Ulcerations Neck: No Nodes, Thyroid Normal Size and Texture Lungs: Clear to auscultation, Normal air movement, No rhonchi, No wheeze Cardiovascular: No murmurs, Irregular Rate, Tachycardic Abdomen: Bowel Sounds Present, Soft, Non Tender, Non-Distended Extremities: No edema, Capillary Refill Less than 3 Seconds Skin: No rashes, No breakdown Musculoskeletal: No Tenderness to Palpation of Joints or Extremities, No Muscle Wasting Neurological: Muscle tone normal, Sensory exam intact to light touch and pain, Coordination normal Psych/Mental Status: Normal Affect, Appropriate Vital Signs Temp Pulse Resp BP Pulse Ox 36.6 C 123 H 20 H 121/102 H 91 07/17/18 15:53 07/17/18 17:13 07/17/18 17:13 07/17/18 17:13 07/17/18 17:13 Oxygen Delivery Method Room Air Weight: 64.2 kg Body Mass Index (BMI) 27.6 Laboratory Tests Past 24 Hrs PT 14.4 INR 1.1 APTT 28.9 Magnesium 1.9 Total Bilirubin 0.70 EKG personally reviewed and showed atrial for ablation with RVR. No other acute changes noted. Clinical Impression(s) from Imaging Studies Chest X-Ray 07/17/18 16:05 IMPRESSION: Mild cardiomegaly without other acute pulmonary findings. Negative for major consolidation, focal atelectasis or a substantial pleural effusion. Electronically Signed: Fay Valencia MD at 16:20 EDT , Service support , Assessment/Plan Patient seen and examined independently. Data reviewed. I agree with the above note by the physician preschool assistant. 1. Atrial fibrillation with RVR * Minimal response with IV metoprolol * Patient started on diltiazem bolus and drip * Started on heparin drip * Cardiology consult * Echocardiogram 2. Hypothyroidism * TSH elevated * Check free T4 and T3 3. Chronic kidney disease, stage III * Creatinine is 1.13 * Patient has noted proteinuria * Follow-up with her travel services professional as outpatient * Code Visit Inpatient E AND M: [id number] Init Hosp L3 07/17/181725 <Electronically signed by Silvio JARQUIN> Date Silvio JARQUIN 07/17/181735<Electronically signed by Fermin Harrell DO> Cosigner Signature: Date (if applicable) Fermin Harrell DO CC: MILKA Slater; Shyla Morales MD; Fermin Harrell DO Signed CHEST 1 VIEW Observed: 07/17/2018 Status: F Source: [place] (PORTABLE) 4:07 PM [facility] REPOSITORY [facility] Imaging Services [address] [place] [address] Chest 1 View (Portable) MR#: [id number] Acct: [id number] Name: SUSANNE COLINDRES Rep #: [id number] : 1950 F 67 From: Fay Valencia MD PCP: Shyla Morales MD Status: PRE ER Study: Chest 1 View (Portable) Date of Exam: 07/17/18 Exam# [id number] Ordering Dr: Jung Vallejo DO STUDY: X-RAY CHEST REASON FOR EXAM: Female, 67 years old. Atrial fibrillation with RVR. TECHNIQUE: Single AP portable view of the chest. COMPARISON: None. FINDINGS: The lungs are clear and expanded. There is no demonstrated pleural abnormality. Mild cardiomegaly. Normal mediastinum and tali. Normal visualized pulmonary arteries. Normal visualized aortic arch and descending thoracic aorta. Normal visualized thoracic spine. Normal visualized ribs, clavicles, and shoulders. There is no demonstrated abnormality of the visualized soft tissue structures of the upper abdomen. RAD/Chest 1 View (Portable) IMPRESSION: Mild cardiomegaly without other acute pulmonary findings. Negative for major consolidation, focal atelectasis or a substantial pleural effusion. Electronically Signed: Fay Valencia MD at 16:20 EDT , Service support , CC: Shyla Morales MD; Jung Vallejo DO Shot Man: Signed PROTHROMBIN TIME W/INR Collected: 07/17/2018 Status: F Source: [place] 4:05 PM [facility] REPOSITORY TYPE CODE TESTS RESULT OUT OF RANGE REFERENCE UNITS LAB L300.4150 11.7-14.9 SECONDS Normal PROTIME 14.4 LAB L300.4200 Normal INR 1.1 Performed By: #### L300.3900, L300.4310 #### [facility] [address] [place], [place], [id number] PARTIAL THROMBOPLAST Collected: 07/17/2018 Status: F Source: [place] TIME 4:05 PM [facility] REPOSITORY TYPE CODE TESTS RESULT OUT OF RANGE REFERENCE UNITS LAB L300.4310 24.1-36.2 Seconds Normal PTT 28.9 Performed By: #### L300.3900, L300.4310 #### [facility] [address] [place], [place], [id number] LIVER PROFILE Collected: 07/17/2018 Status: F Source: [place] 4:05 PM [facility] REPOSITORY TYPE CODE TESTS RESULT OUT OF RANGE REFERENCE UNITS LAB L501.1500 6.4-8.2 g/dL Low T PROT 5.9 LAB L501.1800 3.2-5.0 g/dL Low ALB 2.9 LAB L501.1950 2.2-4.2 g/dL Normal GLOB 3.0 LAB L501.4100 15-37 U/L High AST 44 LAB L501.4305 45-117 U/L Normal ALK P 74 LAB L501.4405 13-56 U/L High ALT 63 LAB L501.4600 0.20-1.00 mg/dL Normal T BILI 0.70 LAB L501.4700 0.00-0.30 mg/dL Normal D BILI 0.21 Performed By: #### L500.3400, L501.4010, L501.5200, L501.9520 #### [facility] [address] [place], [address] TROPONIN-I Collected: 07/17/2018 Status: F Source: [place] 4:05 PM [facility] REPOSITORY TYPE CODE TESTS RESULT OUT OF RANGE REFERENCE UNITS LAB L501.4010 <0.045 ng/mL Normal < 0.015 TROPONIN-I Result Comment: TROPONIN-I EXPECTED VALUES <0.045 Negative 0.045 - 0.590 Consistent with Cardiac Damage > OR = 0.600 Critical Value Not every elevated troponin is indicative of HI. These values should be used with clinical judgement in examining the patient's clinical picture for diagnosis. To establish a diagnosis of HI versus myocardial injury, there must be a demonstrated rise and/or fall in the troponin values, in addition to ischemic symptoms, EKG changes, new regional wall motion abnormality, and/or angiographical evidence. PLEASE NOTE: REFERENCE RANGES EDITED 18 Performed By: #### L500.3400, L501.4010, L501.5200, L501.9520 #### [facility] [address] [place], [place], [id number] MAGNESIUM Collected: 07/17/2018 Status: F Source: [place] 4:05 [facility] REPOSITORY TYPE CODE TESTS RESULT OUT OF RANGE REFERENCE UNITS LAB L501.5200 1.6-2.6 mg/dL Normal MG 1.9 Performed By: #### L500.3400, L501.4010, L501.5200, L501.9520 #### [facility] [address] [place], [address] THYROID STIM HORMONE Collected: 07/17/2018 Status: F Source: [place] ([place]) 4:05 PM [facility] REPOSITORY TYPE CODE TESTS RESULT OUT OF RANGE REFERENCE UNITS LAB L501.9520 0.358-3.74 uIU/mL High TSH 5.57 Performed By: #### L500.3400, L501.4010, L501.5200, L501.9520 #### [facility] [address] [place], [address] 12 LEAD EKG PERFORMED Observed: 07/17/2018 Status: F Source: [place] BY BMS 3:12 PM [facility] REPOSITORY [facility] [address] [place] [place] [address] 12 Lead EKG performed by [facility] 07/17/181510 MR#: [id number] Acct: [id number] Name: SUSANNE COLINDRES Rep #: [id number] : 1950 67 From: Sami Oleary MD Attending Dr: Sami Oleary MD Status: REG AMB Ordering Dr: Sami Oleary MD Date: 07/17/18 Location: [facility] [place] Sex: F C Admitted: BMS/12 Lead EKG performed by [facility] ECG Report Interpretation Atrial flutter-fibrillation Poor R wave progressionABNORMAL RHYTHMElectronically signed on 07/17/2018 at 15:42 by Sami Oleary Software Version [id number] 07/17/18 1546 Date Sami Oleary MD CC: Shyla Morales MD Date Dictated: 07/17/181510 Date Transcribed: 07/17/181510 Shot Man: PM Signed CBC-COMPLETE BLOOD CNT Collected: 07/17/2018 Status: F Source: [place] NO DIFF 12:35 PM [facility] REPOSITORY TYPE CODE TESTS RESULT OUT OF RANGE REFERENCE UNITS LAB L100.1000 4.4-11.0 K/mm3 High WBC 11.1 LAB L100.1200 4.2-5.4 M/mm3 Low RBC 3.69 LAB L100.1300 12.0-15.0 g/dl Low HGB 11.6 LAB L100.1400 37-47 % Low HCT 34.7 LAB L100.1500 81-99 fL Normal MCV 94.0 LAB L100.1600 27.0-32.0 pg Normal MCH 31.4 LAB L100.1700 32-36 g/gl Normal MCHC 33.4 LAB L100.1810 11.6-14.6 % Normal RDW CV 14.3 LAB L100.1820 35.1-43.9 fl High RDW SD 46.7 LAB L100.1900 150-450 K/mm3 Normal PLT 227 LAB L100.2000 6.2-12.0 fl Normal MPV 10.7 Performed By: #### L100.0500 #### [facility] [address] [place], [place], [address] PROTEIN+CREATININE Collected: Status: F Source: [place] RATIO,URINE 07/17/2018 12:35 PM [facility] REPOSITORY TYPE CODE TESTS RESULT OUT OF RANGE REFERENCE UNITS LAB L501.1200 NO RANGE EST. mg/dL Normal UR CREAT 229.00 LAB L501.1930 <11.9 mg/dL High 189.9 PROTEIN,UR.R AN. LAB L501.1940 0-200 mg/g CRE High PROT:CRE 829 RATIO Performed By: #### L501.0900 #### [facility] [address] [place], [address] RENAL PROFILE Collected: 07/17/2018 Status: F Source: [place] 12:35 PM [facility] REPOSITORY TYPE CODE TESTS RESULT OUT OF RANGE REFERENCE UNITS LAB L501.0100 74-106 mg/dL Normal GLU 88 Result Comment: Please note revised GLUCOSE reference range effective 2017. LAB L501.1000 7-18 mg/dL Normal BUN 16 LAB L501.1100 0.55-1.02 mg/dL High CREAT,SERUM 1.13 Result Comment: The validity of the calculated GFR AND GFRAA in patients over 70 years has not been determined. Clinical correlation is essential. LAB L501.1110 >60 mL/min Low EST GFR 51 Result Comment: Non- GFR Calc LAB L501.1115 >60 mL/min Normal EST GFR - AA 62 Result Comment: GFR Calc LAB L501.1300 10-20 RATIO Normal BUN/CRE 14.2 LAB L501.1800 3.2-5.0 g/dL Low ALB 3.0 LAB L501.2200 8.5-10.1 mg/dL CA Normal 8.6 LAB L501.2300 2.5-4.9 mg/dL Low PHOS 2.3 LAB L501.5300 136-145 mmol/L NA Normal 138 LAB L501.5600 3.5-5.1 mmol/L K Normal 4.2 LAB L501.5900 98-107 mmol/L CL Normal 103 LAB L501.6100 21.0-32.0 mmol/L Normal CO2 29.0 Performed By: #### L500.3600 #### [facility] [address] [place], [address] CBC-COMPLETE BLOOD CNT Collected: 06/09/2018 Status: F Source: [place] NO DIFF 8:31 AM [facility] REPOSITORY TYPE CODE TESTS RESULT OUT OF RANGE REFERENCE UNITS LAB L100.1000 4.4-11.0 K/mm3 Normal WBC 4.5 LAB L100.1200 4.2-5.4 M/mm3 Low RBC 3.88 LAB L100.1300 12.0-15.0 g/dl Normal HGB 12.0 LAB L100.1400 37-47 % Normal HCT 37.6 LAB L100.1500 81-99 fL Normal MCV 96.9 LAB L100.1600 27.0-32.0 pg Normal MCH 30.9 LAB L100.1700 32-36 g/gl Low MCHC 31.9 LAB L100.1810 11.6-14.6 % High RDW CV 14.7 LAB L100.1820 35.1-43.9 fl High RDW SD 51.6 LAB L100.1900 150-450 K/mm3 Normal PLT 197 LAB L100.2000 6.2-12.0 fl Normal MPV 10.8 Performed By: #### L100.0500 #### [facility] [address] [place], [address] PROTEIN+CREATININE Collected: Status: F Source: [place] RATIO,URINE 06/09/2018 8:31 AM [facility] REPOSITORY TYPE CODE TESTS RESULT OUT OF RANGE REFERENCE UNITS LAB L501.1200 NO RANGE EST. mg/dL Normal UR CREAT 132.00 LAB L501.1930 <11.9 mg/dL High 132.4 PROTEIN,UR.R AN. LAB L501.1940 0-200 mg/g CRE High PROT:CRE 1003 RATIO Performed By: #### L501.0900 #### [facility] [address] [place], [address] RENAL PROFILE Collected: 06/09/2018 Status: F Source: [place] 8:31 AM [facility] REPOSITORY TYPE CODE TESTS RESULT OUT OF RANGE REFERENCE UNITS LAB L501.0100 74-106 mg/dL High GLU 116 Result Comment: Fasting Glucose result from 100 to 125 mg/dL suggests IMPAIRED HOMEOSTASIS per A.D.A. criteria. Please note revised GLUCOSE reference range effective 2017. LAB L501.1000 7-18 mg/dL High BUN 27 LAB L501.1100 0.55-1.02 mg/dL High CREAT,SERUM 1.07 Result Comment: The validity of the calculated GFR AND GFRAA in patients over 70 years has not been determined. Clinical correlation is essential. LAB L501.1110 >60 mL/min Low EST GFR 54 Result Comment: Non- GFR Calc LAB L501.1115 >60 mL/min Normal EST GFR - AA 66 Result Comment: GFR Calc LAB L501.1300 10-20 RATIO High BUN/CRE 25.2 LAB L501.1800 3.2-5.0 g/dL Low ALB 2.8 LAB L501.2200 8.5-10.1 mg/dL CA Normal 8.8 LAB L501.2300 2.5-4.9 mg/dL Normal PHOS 2.9 LAB L501.5300 136-145 mmol/L NA Normal 139 LAB L501.5600 3.5-5.1 mmol/L K Normal 4.5 LAB L501.5900 98-107 mmol/L CL Normal 105 LAB L501.6100 21.0-32.0 mmol/L Normal CO2 29.0 Performed By: #### L500.3600, L500.4100 #### [facility] [address] [place], [address] LIPID PROFILE Collected: 06/09/2018 Status: F Source: [place] 8:31 AM [facility] REPOSITORY TYPE CODE TESTS RESULT OUT OF RANGE REFERENCE UNITS LAB L501.4900 200 mg/dL Normal CHOL 155 Result Comment: <200 mg/dL Desirable 200-240 mg/dL Borderline >240 mg/dL High Risk LAB L501.5000 mg/dL Normal TRIG 36 Result Comment: The drugs N-Acetylcysteine and Metamizole may falsely depress this assay. Serum Triglycerides Reference Interval Normal <150 mg/dL Borderline high 150 - 199 mg/dL High 200 - 499 mg/dL Very High > or = 500 mg/dL LAB L501.6400 mg/dL Normal HDL 94 Result Comment: The drugs N-Acetylcysteine and Metamizole may falsely depress this assay. Reference Range HDL <40 mg/dL Low HDL Cholesterol HDL >or= 60 mg/dL High HDL Cholesterol LAB L501.6500 0-130 mg/dL Normal LDL 54 LAB L501.6600 5-40 mg/dL Normal VLDL 7 Performed By: #### L500.3600, L500.4100 #### [facility] [address] [place], [place], [address] CNCO Observed: 05/19/2018 Status: COMPLETED Source: [place] 12:00 AM [facility] REPOSITORY Letter Text [facility] Department of Internal Medicine [address] [place], [place] [address] Susanne Colindres [address] [address] May 19, 2018 Dear , Due to unforeseen circumstances, there has been a change in the schedule for Dr Morales. Your original appointment scheduled for 09/29/2018 at 9:20 AM has been rescheduled to 09/15/2018 at 9:40 AM. If this is not convenient, please give our office a call at [phone]. I apologize for any inconvenience this may cause you. Sincerely, Department of Internal Medicine [facility] URINALYSIS, ROUTINE Collected: 05/09/2018 Status: F Source: [place] (DIPSTICK) 6:41 AM [facility] REPOSITORY Order Comment: How was Urine Obtained? CLEAN CATCH TYPE CODE TESTS RESULT OUT OF RANGE REFERENCE UNITS LAB L400.3000 Yellow COLOR Normal Straw LAB L400.3050 Clear Normal CLARITY Clear LAB L400.3200 Normal mg/dl Normal GLUCOSE, UR Normal LAB L400.3300 Negative mg/dL Normal BILIRUBIN URINE Negative LAB L400.3400 Negative mg/dl Normal KETONE UR Negative LAB L400.3465 1.002-1.030 Normal SP.GR. DIPSTX 1.010 LAB L400.3550 5.0 - 8.0 pH UR Normal 8.0 LAB L400.3600 Negative mg/dl High PROT 30 DIPSTX LAB L400.3700 Normal mg/dl Normal UROBILI Normal LAB L400.3750 Negative Normal NITRITE UR Negative LAB L400.3780 Negative /ul High 10 OCCULT BLOOD-UR LAB L400.3800 Negative /ul LEUK Normal ESTERASE Negative Performed By: #### L400.2010 #### [facility] [address] [place], [place], [address] PROTEIN+CREATININE Collected: Status: F Source: [place] RATIO,URINE 05/09/2018 6:41 AM [facility] REPOSITORY TYPE CODE TESTS RESULT OUT OF RANGE REFERENCE UNITS LAB L501.1200 NO RANGE EST. mg/dL < Normal UR 13.00 CREAT LAB L501.1930 <11.9 mg/dL High 28.8 PROTEIN,UR. RAN. LAB L501.1940 0-200 mg/g CRE Test Normal not performed PROT:CRE RATIO Performed By: #### L501.0900 #### [facility] [address] [place], [address] BASIC METABOLIC Collected: 05/09/2018 Status: F Source: [place] PRO[place] (BMP) 6:41 AM [facility] REPOSITORY TYPE CODE TESTS RESULT OUT OF RANGE REFERENCE UNITS LAB L501.0100 74-106 mg/dL High GLU 124 Result Comment: Fasting Glucose result from 100 to 125 mg/dL suggests IMPAIRED HOMEOSTASIS per A.D.A. criteria. Please note revised GLUCOSE reference range effective 2017. LAB L501.1000 7-18 mg/dL Normal BUN 17 LAB L501.1100 0.55-1.02 mg/dL High CREAT,SERUM 1.18 Result Comment: The validity of the calculated GFR AND GFRAA in patients over 70 years has not been determined. Clinical correlation is essential. LAB L501.1110 >60 mL/min Low EST GFR 49 Result Comment: Non- GFR Calc LAB L501.1115 >60 mL/min Low EST GFR - AA 59 Result Comment: GFR Calc LAB L501.1300 10-20 RATIO Normal BUN/CRE 14.4 LAB L501.2200 8.5-10.1 mg/dL CA Normal 9.1 LAB L501.5300 136-145 mmol/L NA Normal 143 LAB L501.5600 3.5-5.1 mmol/L K Normal 4.3 LAB L501.5900 98-107 mmol/L CL Normal 104 LAB L501.6100 21.0-32.0 mmol/L High CO2 33.0 LAB L501.6200 5-15 Normal GAP 6 Performed By: #### L500.2500 #### [facility] [address] [place], [address] BASIC METABOLIC Collected: 05/08/2018 Status: F Source: [place] PROFILE ([facility]) 6:58 AM [facility] REPOSITORY TYPE CODE TESTS RESULT OUT OF RANGE REFERENCE UNITS LAB L501.0100 74-106 mg/dL Normal GLU 84 Result Comment: Please note revised GLUCOSE reference range effective 2017. LAB L501.1000 7-18 mg/dL High BUN 21 LAB L501.1100 0.55-1.02 mg/dL High CREAT,SERUM 1.17 Result Comment: The validity of the calculated GFR AND GFRAA in patients over 70 years has not been determined. Clinical correlation is essential. LAB L501.1110 >60 mL/min Low EST GFR 49 Result Comment: Non- GFR Calc LAB L501.1115 >60 mL/min Low EST GFR - AA 59 Result Comment: GFR Calc LAB L501.1300 10-20 RATIO Normal BUN/CRE 17.9 LAB L501.2200 8.5-10.1 mg/dL CA Normal 9.1 LAB L501.5300 136-145 mmol/L NA Normal 144 LAB L501.5600 3.5-5.1 mmol/L K Normal 3.8 LAB L501.5900 98-107 mmol/L CL Normal 105 LAB L501.6100 21.0-32.0 mmol/L High CO2 35.0 LAB L501.6200 5-15 Low GAP 4 Performed By: #### L500.2500 #### [facility] [address] [place], [address] CARDIOLOGY VISIT Observed: 04/24/2018 Status: F Source: [place] REPORT 11:24 AM [facility] REPOSITORY [facility] [address] [place] [address] OFFICE VISIT Date of Service: 04/24/18 MR#: [id number] Acct: [id number] Name: SUSANNE COLINDRES Rep #: [id number] : 1950 Provider: Sami Oleary MD Age/Sex: 67/F [facility] [facility] Status: Signed HPI HPI Details: SUSANNE COLINDRES, is a 67 F who presents to the office today for outpatient cardiovascular follow-up of her history of underlying mitral valve regurgitation superimposed on hyperlipidemia, hypertension, as well as concerns of shortness of breath/dyspnea and edema. She states that since her last visit her medications have been adjusted. She is currently without her additional diuretic therapy of furosemide. She has also been receiving corticosteroids. She notes that she has had increased fluid retention as well as an element of shortness of breath and edema. She has been monitoring her blood pressures at home and as she has been on the corticosteroids her blood pressures have been elevating. She denies any ongoing chest discomfort. There has been no acute orthopnea or PND. There has been no near syncope or syncope. Intake Vital Signs04/24/18 Height 5 ft 04/24/18 Weight: 147 lb 04/24/18 Body Mass Index (BMI) 28.7 04/24/18 Blood Pressure 158/78 Intake Visit Reasons: 6 M FU Allergies Penicillins [PCN] Allergy (Verified 04/24/18 10:15) Unknown lisinopril Adverse Reaction (Intermediate, Verified 04/24/18 10:15) cough Medications Atorvastatin Calcium [Lipitor] 40 mg PO DAILY 08/16/17 [History Confirmed 04/24/18] Cholecalciferol (Vitamin D3) [Vitamin D3] 2,000 unit PO DAILY 08/16/17 [History Confirmed 04/24/18] Fluoxetine [Prozac] 20 mg PO DAILY 08/16/17 [History Confirmed 04/24/18] Losartan Potassium [Cozaar] 50 mg PO BID 08/16/17 [History Confirmed 04/24/18] acetaminophen 500 mg capsule 500 mg PO Q6H PRN 10/17/17 [History Confirmed 04/24/18] atenolol 50 mg tablet 25 mg PO DAILY 10/17/17 [History Confirmed 04/24/18] bupropion HCl 100 mg tablet 150 mg PO DAILY tab 10/17/17 [History Confirmed 04/24/18] Ascorbic Acid [Vitamin C] 500 mg PO DAILY@0800 02/10/18 [History Confirmed 04/24/18] calcium carbonate 600 mg (1,500 mg)-vitamin D3 200 unit tablet 1 tab PO QDAY 04/24/18 [History Confirmed 04/24/18] furosemide 20 mg tablet 20 mg PO QDAY #30 tab 04/24/18 [Rx Confirmed 04/24/18] levothyroxine 125 mcg tablet 125 mcg PO QDAY 04/24/18 [History Confirmed 04/24/18] spironolactone 25 mg tablet 25 mg PO QDAY tab 04/24/18 [History Confirmed 04/24/18] PFSH Medical History SOB (shortness of breath) (Acute) Edema (Acute) Rheumatic mitral regurgitation (Chronic) Hyperlipidemia (Chronic) Hypertension (Chronic) Hypothyroidism (Acute) CKD (chronic kidney disease) (Chronic) Surgical History History of carpal tunnel surgery (Resolved) History of dilatation and curettage (Resolved) History of hip replacement, total (Resolved) History of tubal ligation (Resolved) Family History Father Heart disease Social History Smoking Status: Never smoker alcohol intake: never substance use type: does not use ROS Const Const: Negative for fatigue, weakness, weight gain, weight loss, frequent falls or excessive sweating Eyes Eyes: Negative for change in vision, blurry vision or transient loss of vision ENT ENT: Positive for balance problems (slight unsteadiness); negative for dizziness Cardio Chest Pain: No Palpitations: Yes (occasional) feels like its: fast Edema: Bilateral Muscle aches with walking: None Additional Details: 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 Patient reports that due to steroids, BP has been elevated. Resp Respiratory: Positive for SOB with activity (slight); negative for SOB at rest GI GI: Negative vomiting or vomiting blood/hematemesis : Negative for hematuria Musc Musc: Positive for balance problems (slight unsteadiness); negative for muscle aches/ myalgia, muscle weakness or joint pain Skin Skin: Negative non-healing lesions or rash Neuro Neuro: Negative for weakness, blurry vision, dizziness, lightheadedness, frequent falls or orthostatic symptoms Johnny Hematologic/Lymphatic: Negative for easy bleeding Endo Endo: Negative for fatigue or excessive sweating Psych Psych: Negative for anxiety or depression Allergy Allergy/Immunology: Negative for hives, Negative for rash Cardiology Exam Const Appearance: cooperative, healthy appearing, comfortable, no acute distress, well developed and well groomed Nutritional Appearance: average body habitus Orientation: alert, awake and oriented x3 Head Head: normal to inspection, normocephalic and atraumatic Ears: hearing grossly normal bilaterally Nose: external nose normal Face and Sinus: face symmetric Mouth: oral mucosae normal Teeth and gingiva: dentition normal Eyes General: appearance normal, both eyes and all related structures Eyelids: eyelids normal Pupils: PERRL EOM: EOM intact bilaterally Neck Neck: normal visual inspection Carotids: normal carotid upstroke Chest Chest inspection: normal inspection of the chest and symmetric chest movement Auscultation: Bilateral: Clear to Auscultation Cardio Palpation: normal PMI Rate: regular rate Rhythm: regular rhythm Heart sounds: S1 normal and S2 normal Murmur: Grade 2/6, harsh, holosystolic, LLSB, apex and axilla GI GI: normal to inspection, soft, no hepatosplenomegaly and bowel sounds present Neuro General: alert, awake and oriented x3 Skin Skin: no rashes or lesions noted Extremities Pulses: Normal: Right Radial Pulse, Left Radial Pulse Lower Extremity Edema: +1: Bilateral Psych Psychological: normal affect Supplemental Info A transthoracic echocardiogram was performed on 11/07/2017 Interpretation Summary Left ventricular systolic function is normal. The estimated ejection fraction is 55 %. Mild concentric left ventricular hypertrophy. Apical false tendon noted. The left atrium is moderately enlarged. Mild diffuse mitral valve thickening. Mild focal mitral valve calcification of the anterior leaflet. The mitral valve chordae are thickened and/or calcified. Moderate (2+) eccentric mitral valve insufficiency. Mild tricuspid valve insufficiency. Mild (1+) pulmonic valve insufficiency. Right ventricular systolic pressure estimated to be 35 mmHg. Assessment AND Plan 1. Rheumatic mitral regurgitation I05.1 Plan At the present time she continues with her mitral valve regurgitation. She will continue to be followed by history, exam, and echocardiogram. In the meantime there are concerns about her medication adjustment, fluid retention, and shortness of breath. It has been recommended that she resume furosemide/Lasix therapy at 20 mg a day with a follow-up BMP. 2. Hyperlipidemia, unspecified hyperlipidemia type E78.5 Plan Her lipid profile was performed in November of this year. Her total cholesterol is 191 with an LDL 103 and an HDL of 73 and a triglyceride level of 76. She will continue evaluation care as deemed appropriate 3. Essential hypertension I10 Plan Her home blood pressure readings do demonstrate her blood pressures have been elevating. This may be related to the corticosteroid therapy and fluid retention. Thus she will restart her furosemide therapy as noted above. She was asked to monitor her BMP and monitor her blood pressures Orders Orders: 4. Shortness of breath R06.02 Plan Again there are concerns of fluid retention and contributing to her symptoms. Hopefully restarting her diuretic therapy will be beneficial to her. She will need to monitor her clinical response 5. Edema, unspecified type R60.9 Plan She does have mild edema in the ankle area. She will restart her diuretic therapy. She will monitor her edema and her weights. Plan Detail Other Medications New: Additional Comments Thank you for allowing me to participate in the care of your patient. Please don't hesitate to call if any issues arise. This note was generated using a voice recognition system and there may be incorrect words, spelling or punctuation that were not noted when reviewing the office note prior to saving. Follow Up 6 Months (PFM) Coding Level of Care Code Off vis,est,level 4 Diagnoses Rheumatic mitral regurgitation I05.1 Hyperlipidemia, unspecified hyperlipidemia type E78.5 Hyperlipidemia type: unspecified Essential hypertension I10 Hypertension type: essential hypertension Shortness of breath R06.02 Edema, unspecified type R60.9 Edema type: unspecified Coding Level of Care Code Off vis,est,level 4 Diagnoses Rheumatic mitral regurgitation I05.1 Hyperlipidemia, unspecified hyperlipidemia type E78.5 Hyperlipidemia type: unspecified Essential hypertension I10 Hypertension type: essential hypertension Shortness of breath R06.02 Edema, unspecified type R60.9 Edema type: unspecified 04/24/18 1124 <Electronically signed by Sami Oleary MD> Date Sami Oleary MD Cosigner Signature: Date (if applicable) CC: Shyla Morales MD CNCO Observed: 03/28/2018 Status: COMPLETED Source: [place] 12:24 PM [facility] [place] REPOSITORY [facility] ID: [id number] Author: Mammography Coordinator Service: (none) Author Type: Physician Type: Letter Filed: 03/31/2018 11:33 PM Note Text: March 28, 2018 PID: [id number] Susanne Colindres [address] [place] [address] Dear Ms. Colindres, We are pleased to inform you that the results of your recent breast imaging exam on 03/28/2018 are normal. Your mammogram demonstrates that you have dense breast tissue, which could hide abnormalities. Dense breast tissue, in and of itself, is a relatively common condition. Therefore, this information is not provided to cause undue concern; rather, it is to raise your awareness and promote discussion with your health care provider regarding the presence of dense breast tissue in addition to other risk factors. Early detection of cancer is very important. We also understand recommendations regarding breast cancer screening are controversial. Please discuss with your primary care provider which strategy is best for you and whether a mammogram is right for you. Your imaging studies and report will be kept on file at [facility] as part of your permanent medical record and are available for your continuing care. Thank you for allowing us to help in meeting your health care needs. Sincerely, Dr. Collazo Interpreting Radiologist [facility] (Normal over 40) [facility] SCREENING Observed: 03/28/2018 Status: F Source: [place] 11:45 AM [facility] [place] REPOSITORY * * *Final Report* * * DATE OF EXAM: Mar 28 2018 11:45AM [facility] [id number] - [facility] SCREENING / PROCEDURE REASON: Encounter for screening mammogram for malignant neoplasm of breast * * * * Physician Interpretation * * * * RESULT: #[id number] - [facility] SCREENING BILATERAL DIGITAL SCREENING MAMMOGRAM WITH CAD: 03/28/2018 HISTORY: Screening Mammogram - patient reports NO breast symptoms /priors available for comparison. RESULT: TECHNIQUE: The study was acquired using full field digital technology and interpreted from soft copy. Current study was also evaluated with a Computer Aided Detection (CAD). Comparison is made to exams dated: 01/14/2017 mammogram - [facility], 11/22/2015 mammogram - [facility], and 10/10/2015 mammogram - [facility]. The tissue of both breasts is heterogeneously dense. This may lower the sensitivity of mammography. No significant masses, calcifications, or other findings are seen in either breast. There has been no significant interval change. IMPRESSION: NEGATIVE There is no mammographic evidence of malignancy.A 1 year screening mammogram is recommended. Dominick antunez/trell:03/28/2018 12:24:23 Field Coil Winder: Abigail AGUAYO(Moises)(M), [facility] letter sent: Normal over 40 Mammogram BI-RADS: 1 Negative Shot Man: Trell Transcribe Date/Time: Mar 28 2018 11:09A Dictated by: DOMINICK COLLAZO MD This examination was interpreted and the report reviewed and electronically signed by: DOMINICK COLLAZO MD on Mar 28 2018 12:24PM EST [id number] PROGRESS Observed: 03/28/2018 Status: COMPLETED Source: [place] 11:06 AM [facility] REPOSITORY HNO ID: [id number] Author: Dalila Aguayo Service: (none) Author Type: (none) Type: Progress Notes Filed: 03/28/2018 11:08 AM Note Text: Radiology Service Progress Note PATIENT NAME: Susanne Colindres DATE OF SERVICE: March 28, 2018 TIME: 11:07 AM PATIENT IDENTITY VERIFICATION COMPLETED USING TWO (2) METHODS: Patient confirmed name verbally and Date of . PATIENT GENDER DATA: Female. status: : No status: NO. PATIENT RELEVANT IMPLANT DATA REVIEWED: Not Applicable RADIOLOGY DEPARTMENT: [facility] DATA: Not applicable SIGNED BY: Dalila Aguayo March 28, 2018 11:07 AM PROGRESS Observed: 03/28/2018 Status: COMPLETED Source: [place] 10:37 AM [facility] REPOSITORY HNO ID: [id number] Author: Shyla Morales Service: (none) Author Type: Physician Type: Progress Notes Filed: 03/28/2018 1:04 PM Note Text: Reason for Visit Patient presents with: Established Patient Susanne Colindres is a 67 year old female who presents here today for Above Complaints.. Health Maintenance ZOSTER VACCINE (SHINGRIX)(1 of 2) ADULT PREVNAR-13 PNEUMOVAX AGE 65 AND OVER WITH 5YR LOOKBACK(1) MAMMOGRAM HPI BP is better controlled currently on atenolol 25, losartan, 25 , 2 times a day . She has been taken off the lasix Recent labs show low na and high potassium- need to recheck numbers ? Thyroid is as close to normal as she has been in a while but still on the higher side, we are cutting down the dose by one half once a week Lipids are normal, reviewed test results with patient Who takes medications regularly and has no side effects.- her numbers are looking great. ? No problem-specific Assessment AND Plan notes found for this encounter. PAST MEDICAL HISTORY Diagnosis Date - Circumscribed scleroderma - Dysthymic disorder Depression (non-psychotic) - Female stress incontinence - PMH - PAST MEDICAL HISTORY OF knee and sciatic nerve - Postmenopausal atrophic vaginitis - Rheumatic heart disease, unspecified Rheumatic fever Murmur and treated with PCN for 18 years - Symptomatic menopausal or female climacteric states - Unspecified hypothyroidism Hypothyroidism - Urgency of urination PAST SURGICAL HISTORY Procedure Laterality Date - COLONOSCOP W/ OR W/O [facility]SH SPEC 11/02/2013 Colonoscopy - DANDC, DIAG AND/OR THERAPEUTIC prior to 1994 Dilation AND curettage/polypectomy - LIGATE FALLOPIAN TUBE 1979 Tubal ligation - TOTAL HIP REPLACEMENT 10/16/2011 Hip replacement, total right - [facility] Dr. Schofield - FAMILY HISTORY Problem Relation Age of Onset - Thyroid Father - Heart Father Bypass - Thyroid Mother - Thyroid Sister - Thyroid Sister - Breast Cancer Maternal Aunt - Breast Cancer Maternal Aunt Social History Substance Use Topics - Smoking status: Never Smoker - Smokeless tobacco: Never Used - Alcohol use No Past medical history, appointments, medications, allergies reviewed. Pertinent Lab/Diagnostic Studies are reviewed and discussed today Current Outpatient Prescriptions: - atenolol (TENORMIN) 25 mg tablet - FLUoxetine (PROZAC) 20 mg capsule - buPROPion SR (ZYBAN SR; WELLBUTRIN SR) 150 mg 12 hr tablet - atorvastatin (LIPITOR) 40 mg tablet - losartan (COZAAR) 50 mg tablet - CALCIUM CARBONATE/VITAMIN D3 (CALCIUM + VITAMIN D ORAL) - furosemide (LASIX) 40 mg tablet - spironolactone (ALDACTONE) 50 mg tablet - diltiazem CD (CARDIZEM CD) 180 mg 24 hr capsule - COMPOUNDED PRESCRIPTION - Omeprazole (PRILOSEC) 40 mg capsule Review of Systems CONSTITUTIONAL: No fevers, chills night sweats, unintended weight loss CARDIOVASCULAR: No chest pain, dyspnea, palpitations, orthopnea, PND, ankle edema. PULM: No dyspnea, unexplained cough. GI: No dysphagia/odynophagia, problematic reflux, constipation, diarrhea, changes in stool habits, hematochezia, melena. : No new urinary complaints, including dysuria, gross hematuria or pyuria. NEURO: No new balance problems, peripheral weakness/paresthesias or numbness of concern. Physical Exam BP 130/70 (BP Site: Left Arm, BP Position: Sitting, BP Cuff Size: Regular Adult) Pulse 66 Resp 16 Wt 63.1 kg (139 lb 1 oz) LMP 02/25/2008 BMI 26.28 kg/m? General appearance: Well appearing, alert, in no acute distress, well nourished. Skin: Skin color, texture, turgor normal, no suspicious rashes or lesions Head: Normocephalic, no masses, lesions, tenderness or abnormalities Eyes: Anicteric sclera. Pupils are equally round and reactive to light. Extraocular movements are intact. Lungs: Lungs clear to auscultation. No wheezing, rhonchi, rales Heart: RRR without murmur, gallop, or rubs. Extremities: No deformities, edema, skin discoloration, clubbing or cyanosis. Good capillary refill. ASSESSMENT/PLAN: 1. Mixed hyperlipidemia - ICD9: 272.2, ICD10: E78.2 (primary diagnosis) - good control - Continue current medication. - LIPID PANEL BASIC 2. Recurrent major depressive disorder, in partial remission (HCC) - ICD9: 296.35, ICD10: F33.41 Depression is well controlled , 3. Hypothyroidism, unspecified type - ICD9: 244.9, ICD10: E03.9 - Instructed patient on importance of taking on an empty stomach either first thing in the morning or at bedtime. - TSH BLD 4. Essential hypertension - ICD9: 401.9, ICD10: I10 - good control - Recommended regular aerobic exercise. - Recommend home blood pressure monitoring, to bring results in on next visit - Goal of BP <130/80 SHYLA MORALES MD CNOV Observed: 03/28/2018 Status: COMPLETED Source: [place] 9:40 AM [facility] REPOSITORY Office Visit (INTMWS) SUSANNE COLINDRES ([id number]) 1950 F Date Time Provider Department 03/28/18 9:40 AM SHYLA MORALES INTMWS During your visit today, we recorded the following information about you: Pulse Respiration Blood pressure Weight 66/minute 16/minute 130/70 63.1 kg SHYLA MORALES MD 03/28/2018 1:04 PM Signed Reason for Visit Patient presents with: Established Patient Susanne Colindres is a 67 year old female who presents here today for Above Complaints.. Health Maintenance ZOSTER VACCINE (SHINGRIX)(1 of 2) ADULT PREVNAR-13 PNEUMOVAX AGE 65 AND OVER WITH 5YR LOOKBACK(1) MAMMOGRAM HPI BP is better controlled currently on atenolol 25, losartan, 25 , 2 times a day . She has been taken off the lasix Recent labs show low na and high potassium- need to recheck numbers ? Thyroid is as close to normal as she has been in a while but still on the higher side, we are cutting down the dose by one half once a week Lipids are normal, reviewed test results with patient Who takes medications regularly and has no side effects.- her numbers are looking great. ? No problem-specific Assessment AND Plan notes found for this encounter. PAST MEDICAL HISTORY Diagnosis Date - Circumscribed scleroderma - Dysthymic disorder Depression (non-psychotic) - Female stress incontinence - PMH - PAST MEDICAL HISTORY OF knee and sciatic nerve - Postmenopausal atrophic vaginitis - Rheumatic heart disease, unspecified Rheumatic fever Murmur and treated with PCN for 18 years - Symptomatic menopausal or female climacteric states - Unspecified hypothyroidism Hypothyroidism - Urgency of urination PAST SURGICAL HISTORY Procedure Laterality Date - COLONOSCOP W/ OR W/O [facility] 11/02/2013 Colonoscopy - DANDC, DIAG AND/OR THERAPEUTIC prior to 1994 Dilation AND curettage/polypectomy - LIGATE FALLOPIAN TUBE 1979 Tubal ligation - TOTAL HIP REPLACEMENT 10/16/2011 Hip replacement, total right - [facility] Dr. Schofield - FAMILY HISTORY Problem Relation Age of Onset - Thyroid Father - Heart Father Bypass - Thyroid Mother - Thyroid Sister - Thyroid Sister - Breast Cancer Maternal Aunt - Breast Cancer Maternal Aunt Social History Substance Use Topics - Smoking status: Never Smoker - Smokeless tobacco: Never Used - Alcohol use No Past medical history, appointments, medications, allergies reviewed. Pertinent Lab/Diagnostic Studies are reviewed and discussed today Current Outpatient Prescriptions: - atenolol (TENORMIN) 25 mg tablet - FLUoxetine (PROZAC) 20 mg capsule - buPROPion SR (ZYBAN SR; WELLBUTRIN SR) 150 mg 12 hr tablet - atorvastatin (LIPITOR) 40 mg tablet - losartan (COZAAR) 50 mg tablet - CALCIUM CARBONATE/VITAMIN D3 (CALCIUM + VITAMIN D ORAL) - furosemide (LASIX) 40 mg tablet - spironolactone (ALDACTONE) 50 mg tablet - diltiazem CD (CARDIZEM CD) 180 mg 24 hr capsule - COMPOUNDED PRESCRIPTION - Omeprazole (PRILOSEC) 40 mg capsule Review of Systems CONSTITUTIONAL: No fevers, chills night sweats, unintended weight loss CARDIOVASCULAR: No chest pain, dyspnea, palpitations, orthopnea, PND, ankle edema. PULM: No dyspnea, unexplained cough. GI: No dysphagia/odynophagia, problematic reflux, constipation, diarrhea, changes in stool habits, hematochezia, melena. : No new urinary complaints, including dysuria, gross hematuria or pyuria. NEURO: No new balance problems, peripheral weakness/paresthesias or numbness of concern. Physical Exam BP 130/70 (BP Site: Left Arm, BP Position: Sitting, BP Cuff Size: Regular Adult) Pulse 66 Resp 16 Wt 63.1 kg (139 lb 1 oz) LMP 02/25/2008 BMI 26.28 kg/m? General appearance: Well appearing, alert, in no acute distress, well nourished. Skin: Skin color, texture, turgor normal, no suspicious rashes or lesions Head: Normocephalic, no masses, lesions, tenderness or abnormalities Eyes: Anicteric sclera. Pupils are equally round and reactive to light. Extraocular movements are intact. Lungs: Lungs clear to auscultation. No wheezing, rhonchi, rales Heart: RRR without murmur, gallop, or rubs. Extremities: No deformities, edema, skin discoloration, clubbing or cyanosis. Good capillary refill. ASSESSMENT/PLAN: 1. Mixed hyperlipidemia - ICD9: 272.2, ICD10: E78.2 (primary diagnosis) - good control - Continue current medication. - LIPID PANEL BASIC 2. Recurrent major depressive disorder, in partial remission (HCC) - ICD9: 296.35, ICD10: F33.41 Depression is well controlled , 3. Hypothyroidism, unspecified type - ICD9: 244.9, ICD10: E03.9 - Instructed patient on importance of taking on an empty stomach either first thing in the morning or at bedtime. - TSH BLD 4. Essential hypertension - ICD9: 401.9, ICD10: I10 - good control - Recommended regular aerobic exercise. - Recommend home blood pressure monitoring, to bring results in on next visit - Goal of BP <130/80 SHYLA MORALES MD Referring Provider: SHYLA MORALES [[id number]] Allergies As of Date: 03/28/2018 Noted Allergy Reaction LISINOPRIL 03/03/2009 3 - Cough PENICILLINS 01/31/2006 Comments: yeast infection Date Reviewed: 10/28/2017 Reviewed by: Epifanio Calles LPN - Fully Assessed Reason for Visit: Established Patient [175] Primary Visit Diagnosis:Mixed hyperlipidemia [E78.2] Other Visit Diagnoses:Recurrent major depressive disorder, in partial remission (HCC) [F33.41] Hypothyroidism, unspecified type [E03.9] Essential hypertension [I10] Breast cancer screening by mammogram [Z12.31] Need for vaccination [Z23] Order(s):atenolol (TENORMIN) 25 mg tabletTake 1 tablet by mouth once daily.Disp: 90 tabletRfl: 3 FLUoxetine (PROZAC) 20 mg capsuleTake 1 capsule by mouth once daily.Disp: 90 capsuleRfl: 3 buPROPion SR (ZYBAN SR; WELLBUTRIN SR) 150 mg 12 hr tabletTake 1 tablet by mouth twice daily.Disp: 180 tabletRfl: 3 levothyroxine (LEVOXYL) 125 mcg tabletTake on empty stomach. For thyroid 1 pill all days of the week except half on saturdayDisp: 90 tabletRfl: 3 TSH BLD [SQTS] Order #: [id number] FUTURE LIPID PANEL BASIC [SQLIPB] Order #: [id number] FUTURE GHANSHYAM SCREENING [[id number]] Order #: [id number] FUTURE PNEUMOCOCCAL-13 VACCINE PCV-13 [[id number]] Order #: [id number] Prescriptions as of 03/28/2018 Sig: ATENOLOL 25 MG TABLET Take 1 tablet by mouth once d* FLUOXETINE 20 MG CAPSULE Take 1 capsule by mouth once * BUPROPION HCL SR 150 MG TABLE* Take 1 tablet by mouth twice * ATORVASTATIN 40 MG TABLET Take 1 tablet by mouth once d* LOSARTAN 50 MG TABLET Take 1 tablet by mouth twice * * CALCIUM + VITAMIN D ORAL Take by mouth twice daily. LEVOTHYROXINE 125 MCG TABLET Take on empty stomach. For th* COMPOUNDED PRESCRIPTION Consult endo: Dr. Jorge Maher* OMEPRAZOLE 40 MG CAPSULE,QASIM* Take 1 capsule by mouth once * Patient not taking: Reported on 03/28/2018 Problem List As Of Date 03/28/2018 Noted Resolved OSTEOCHONDROPATHY NOS [M93.90] INVALID FOR* ILEALTIBIAL BAND FRICTION SYND [M62.9] INVALID FOR* SCREENING MAL NEOP-CERVIX [Z12.4] INVALID FOR* SYMPTOMATIC FEMALE CLIMACTERIC STATE [N95.1] INVALID FOR* STRICTURE OF CERVIX [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 Major depressive disorder in partial remission *INVALID FOR* Hypertension [I10] INVALID FOR* More... Hypothyroid [E03.9] INVALID FOR* More... Lichen sclerosus [L90.0] INVALID FOR* MDD (major depressive disorder) (HCC) [F32.9] INVALID FOR* Depression with anxiety [F41.8] INVALID FOR* More... Moderate mitral regurgitation [I34.0] INVALID FOR* Pulmonary hypertension, secondary (HCC) [VFK306*INVALID FOR* Proteinuria [R80.9] INVALID FOR* Stage 3 chronic kidney disease [N18.3] INVALID FOR* More... Dependent edema [R60.9] INVALID FOR* Nephrotic syndrome [N04.9] INVALID FOR* More... Prescriptions ordered this encounter Disp Refills Start End ATENOLOL 25 MG TABLET 90 t* 3 03/28/2018 Route: ORAL Sig: Take 1 tablet by mouth once daily. FLUOXETINE 20 MG CAPSULE 90 c* 3 03/28/2018 Route: ORAL Sig: Take 1 capsule by mouth once daily. BUPROPION HCL SR 150 MG TABLET,12 HR* 180 * 3 03/28/2018 Route: ORAL Sig: Take 1 tablet by mouth twice daily. LEVOTHYROXINE 125 MCG TABLET 90 t* 3 03/28/2018 Sig: Take on empty stomach. For thyroid 1 pill all days of the week except half on saturday Medications Discontinued During This Encounter levothyroxine (LEVOXYL) 175 mcg tabl* 30 t* 5 09/12/2017 03/28/2018 Route: ORAL Sig: Take 1 tablet by mouth once daily. Take on empty stomach. For thyroid. Patient taking differently: Take 125 mcg by mouth once daily. Take on empty stomach. For thyroid. Disc: Reason for discontinue is not on file. diltiazem CD (CARDIZEM CD) 180 mg 24* 10/02/2017 03/28/2018 Class: Historical Med Route: ORAL Sig: Take 1 capsule by mouth once daily. Disc: Reason for discontinue is not on file. spironolactone (ALDACTONE) 50 mg tab* 10/28/2017 03/28/2018 Class: Historical Med Route: ORAL Sig: Take 1 tablet by mouth once daily. Disc: Reason for discontinue is not on file. furosemide (LASIX) 40 mg tablet 30 t* 0 02/07/2018 03/28/2018 Route: ORAL Sig: Take 1 tablet by mouth once daily. Patient not taking: Reported on 03/28/2018 Disc: Reason for discontinue is not on file. atenolol (TENORMIN) 25 mg tablet 90 t* 0 02/07/2018 03/28/2018 Route: ORAL Sig: Take 1 tablet by mouth once daily. Disc: Reason for discontinue is not on file. FLUoxetine (PROZAC) 20 mg capsule 90 c* 0 02/07/2018 03/28/2018 Route: ORAL Sig: Take 1 capsule by mouth once daily. Disc: Reason for discontinue is not on file. buPROPion SR (ZYBAN SR; WELLBUTRIN S* 90 t* 0 02/07/2018 03/28/2018 Route: ORAL Sig: Take 1 tablet by mouth twice daily. Disc: Reason for discontinue is not on file. Encounter Status:Closed by SHYLA MORALES MD on 03/28/18 [facility]: 03/11/2018 Status: COMPLETED Source: [place] 12:00 AM [facility] RE[facility] Patient Outreach (FAMPST) SUSANNE COLINDRES ([id number]) 1950 F Date Time Provider Department 03/11/18 SHYLA MORALES During your visit today, we recorded the following information about you: Allergies As of Date: 03/11/2018 Noted Allergy Reaction LISINOPRIL 03/03/2009 3 - Cough PENICILLINS 01/31/2006 Comments: yeast infection Date Reviewed: 10/28/2017 Reviewed by: Epifanio Calles FLUID POWER MECHANIC - Fully Assessed Visit Diagnosis:Medication management [Z79.899] Order(s):HGB A1C [RCCBJ9N] Order #: [id number] FUTURE Prescriptions as of 03/11/2018 Sig: X FUROSEMIDE 40 MG TABLET Take 1 tablet by mouth once d* Patient not taking: Reported on 03/28/2018 X ATENOLOL 25 MG TABLET Take 1 tablet by mouth once d* X FLUOXETINE 20 MG CAPSULE Take 1 capsule by mouth once * X BUPROPION HCL SR 150 MG TABLE* Take 1 tablet by mouth twice * ATORVASTATIN 40 MG TABLET Take 1 tablet by mouth once d* X SPIRONOLACTONE 50 MG TABLET Take 1 tablet by mouth once d* X DILTIAZEM SR 180 MG 24 HR CAP Take 1 capsule by mouth once * X LEVOTHYROXINE 175 MCG TABLET Take 1 tablet by mouth once d* Patient taking differently: Take 125 mcg by mouth once da* LOSARTAN 50 MG TABLET Take 1 tablet by mouth twice * COMPOUNDED PRESCRIPTION Consult endo: Dr. Jorge Maher* OMEPRAZOLE 40 MG CAPSULE,QASIM* Take 1 capsule by mouth once * Patient not taking: Reported on 03/28/2018 * CALCIUM + VITAMIN D ORAL Take by mouth twice daily. Problem List As Of Date 03/11/2018 Noted Resolved OSTEOCHONDROPATHY NOS [M93.90] INVALID FOR* ILEALTIBIAL BAND FRICTION SYND [M62.9] INVALID FOR* SCREENING MAL NEOP-CERVIX [Z12.4] INVALID FOR* SYMPTOMATIC FEMALE CLIMACTERIC STATE [N95.1] INVALID FOR* STRICTURE OF CERVIX [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 Major depressive disorder in partial remission *INVALID FOR* Hypertension [I10] INVALID FOR* More... Hypothyroid [E03.9] INVALID FOR* More... Lichen sclerosus [L90.0] INVALID FOR* MDD (major depressive disorder) (HCC) [F32.9] INVALID FOR* Depression with anxiety [F41.8] INVALID FOR* More... Moderate mitral regurgitation [I34.0] INVALID FOR* Pulmonary hypertension, secondary (HCC) [ZIS645*INVALID FOR* Proteinuria [R80.9] INVALID FOR* Stage 3 chronic kidney disease [N18.3] INVALID FOR* More... Dependent edema [R60.9] INVALID FOR* Nephrotic syndrome [N04.9] INVALID FOR* More... Encounter Status:Closed by EPIC, PRODUSER on 07/25/18 CBC-COMPLETE BLOOD CNT Collected: 03/07/2018 Status: F Source: [place]ECT[place] NO DIFF 6:43 AM [facility] REPOSITORY TYPE CODE TESTS RESULT OUT OF RANGE REFERENCE UNITS LAB L100.1000 4.4-11.0 K/mm3 Normal WBC 5.0 LAB L100.1200 4.2-5.4 M/mm3 Low RBC 3.69 LAB L100.1300 12.0-15.0 g/dl Low HGB 11.5 LAB L100.1400 37-47 % Low HCT 33.0 LAB L100.1500 81-99 fL Normal MCV 89.4 LAB L100.1600 27.0-32.0 pg Normal MCH 31.2 LAB L100.1700 32-36 g/gl Normal MCHC 34.8 LAB L100.1810 11.6-14.6 % Normal RDW CV 13.6 LAB L100.1820 35.1-43.9 fl High RDW SD 44.7 LAB L100.1900 150-450 K/mm3 Normal PLT 240 LAB L100.2000 6.2-12.0 fl Normal MPV 9.4 Performed By: #### L100.0500 #### [facility] [address] [place], [place], [id number] PROTEIN+CREATININE Collected: Status: F Source: HECTOR RATIO,URINE 03/07/2018 6:43 AM [facility] REPOSITORY TYPE CODE TESTS RESULT OUT OF RANGE REFERENCE UNITS LAB L501.1200 NO RANGE EST. mg/dL Normal UR CREAT 78.40 LAB L501.1930 <11.9 mg/dL High 149.9 PROTEIN,UR.R AN. LAB L501.1940 0-200 mg/g CRE High PROT:CRE 1912 RATIO Performed By: #### L501.0900 #### [facility] [address] [facility] [place], [place], [id number] RENAL PROFILE Collected: 03/07/2018 Status: F Source: [place]ECT[place] 6:43 AM [facility] REPOSITORY TYPE CODE TESTS RESULT OUT OF RANGE REFERENCE UNITS LAB L501.0100 74-106 mg/dL Normal GLU 98 Result Comment: Please note revised GLUCOSE reference range effective 2017. LAB L501.1000 7-18 mg/dL High BUN 23 LAB L501.1100 0.55-1.02 mg/dL High CREAT,SERUM 1.20 Result Comment: The validity of the calculated GFR AND GFRAA in patients over 70 years has not been determined. Clinical correlation is essential. LAB L501.1110 >60 mL/min Low EST GFR 48 Result Comment: Non- GFR Calc LAB L501.1115 >60 mL/min Low EST GFR - AA 58 Result Comment: GFR Calc LAB L501.1300 10-20 RATIO Normal BUN/CRE 19.2 LAB L501.1800 3.2-5.0 g/dL Low ALB 2.6 LAB L501.2200 8.5-10.1 mg/dL CA Normal 8.8 LAB L501.2300 2.5-4.9 mg/dL Normal PHOS 2.9 LAB L501.5300 136-145 mmol/L Low NA 131 LAB L501.5600 3.5-5.1 mmol/L K Normal 5.0 LAB L501.5900 98-107 mmol/L Low CL 95 LAB L501.6100 21.0-32.0 mmol/L Normal CO2 29.0 Performed By: #### L500.3600 #### [facility] [place], [address] URINALYSIS, ROUTINE Collected: 03/07/2018 Status: F Source: HECTOR (DIPSTICK) 6:43 AM [facility] REPOSITORY Order Comment: How was Urine Obtained? CLEAN CATCH TYPE CODE TESTS RESULT OUT OF RANGE REFERENCE UNITS LAB L400.3000 Yellow COLOR Normal Yellow LAB L400.3050 Clear Normal CLARITY Clear LAB L400.3200 Normal mg/dl Normal GLUCOSE, UR Normal LAB L400.3300 Negative mg/dL Normal BILIRUBIN URINE Negative LAB L400.3400 Negative mg/dl Normal KETONE UR Negative LAB L400.3465 1.002-1.030 Normal SP.GR. DIPSTX 1.015 LAB L400.3550 5.0 - 8.0 pH UR Normal 8.0 LAB L400.3600 Negative mg/dl High PROT DIPSTX 100 LAB L400.3700 Normal mg/dl Normal UROBILI Normal LAB L400.3750 Negative Normal NITRITE UR Negative LAB L400.3780 Negative /ul High 50 OCCULT BLOOD-UR LAB L400.3800 Negative /ul LEUK Normal ESTERASE Negative Performed By: #### L400.2011 #### [facility] [address] [place], [address] PROTEIN+CREATININE Collected: Status: F Source: [place] RATIO,URINE 02/21/2018 8:26 AM [facility] REPOSITORY TYPE CODE TESTS RESULT OUT OF RANGE REFERENCE UNITS LAB L501.1200 NO RANGE EST. mg/dL Normal UR CREAT 14.60 LAB L501.1930 <11.9 mg/dL High 79.2 PROTEIN,UR.R AN. LAB L501.1940 0-200 mg/g CRE High PROT:CRE [id number] RATIO Performed By: #### L501.0900 #### [facility] [address] [place], [address] URINALYSIS, COMPLETE Collected: 01/15/2018 Status: F Source: HECTOR 10:18 AM [facility] REPOSITORY Order Comment: How was Urine Obtained? CLEAN CATCH TYPE CODE TESTS RESULT OUT OF RANGE REFERENCE UNITS LAB L400.3000 Yellow COLOR Normal Straw LAB L400.3050 Clear Normal CLARITY Clear LAB L400.3200 Normal mg/dl Normal GLUCOSE, UR Normal LAB L400.3300 Negative mg/dL Normal BILIRUBIN URINE Negative LAB L400.3400 Negative mg/dl Normal KETONE UR Negative LAB L400.3465 1.002-1.030 Normal SP.GR. DIPSTX 1.010 LAB L400.3550 5.0 - 8.0 pH UR Normal 6.0 LAB L400.3600 Negative mg/dl High PROT DIPSTX 100 LAB L400.3700 Normal mg/dl Normal UROBILI Normal LAB L400.3750 Negative Normal NITRITE UR Negative LAB L400.3780 Negative /ul High OCCULT BLOOD-UR 150 LAB L400.3800 Negative /ul LEUK Normal ESTERASE Negative LAB L400.4050 0-5 /hpf WBC 0 Normal SEEN LAB L400.4100 0-5 /hpf Normal RBC-UA 5-10 SEEN LAB L400.4150 5-10 /hpf SQUAM Normal EPI 0-5 SEEN LAB L400.4300 None Seen /hpf Normal BACTERIA RARE LAB L400.4350 <or=2+ /hpf 0 Normal MUCUS, URINE SEEN Performed By: #### L400.0001 #### [facility] [address] [place], [place], [id number] CBC-COMPLETE BLOOD CNT Collected: 01/15/2018 Status: F Source: HECTOR NO DIFF 10:18 AM [facility] REPOSITORY TYPE CODE TESTS RESULT OUT OF RANGE REFERENCE UNITS LAB L100.1000 4.4-11.0 K/mm3 Normal WBC 4.6 LAB L100.1200 4.2-5.4 M/mm3 Low RBC 3.40 LAB L100.1300 12.0-15.0 g/dl Low HGB 10.7 LAB L100.1400 37-47 % Low HCT 31.6 LAB L100.1500 81-99 fL Normal MCV 92.9 LAB L100.1600 27.0-32.0 pg Normal MCH 31.5 LAB L100.1700 32-36 g/gl Normal MCHC 33.9 LAB L100.1810 11.6-14.6 % Normal RDW CV 13.2 LAB L100.1820 35.1-43.9 fl Normal RDW SD 43.1 LAB L100.1900 150-450 K/mm3 Normal PLT 229 LAB L100.2000 6.2-12.0 fl Normal MPV 10.5 Performed By: #### L100.0500 #### [facility] [address] [facility]. [place], [place], [id number] PROTEIN+CREATININE Collected: Status: F Source: HECTOR RATIO,URINE 01/15/2018 10:18 AM [facility] REPOSITORY TYPE CODE TESTS RESULT OUT OF RANGE REFERENCE UNITS LAB L501.1200 NO RANGE EST. mg/dL Normal UR CREAT 33.70 LAB L501.1930 <11.9 mg/dL High 181.5 PROTEIN,UR.R AN. LAB L501.1940 0-200 mg/g CRE High PROT:CRE 5386 RATIO Performed By: #### L501.0900 #### [facility] [address] [place], [place], [address] BASIC METABOLIC Collected: 01/15/2018 Status: F Source: HECTOR PROFILE (BMP) 10:18 AM [facility] REPOSITORY TYPE CODE TESTS RESULT OUT OF RANGE REFERENCE UNITS LAB L501.0100 74-106 mg/dL High GLU 121 Result Comment: Fasting Glucose result from 100 to 125 mg/dL suggests IMPAIRED HOMEOSTASIS per A.D.A. criteria. Please note revised GLUCOSE reference range effective 2017. LAB L501.1000 7-18 mg/dL High BUN 39 LAB L501.1100 0.55-1.02 mg/dL High CREAT,SERUM 1.16 Result Comment: The validity of the calculated GFR AND GFRAA in patients over 70 years has not been determined. Clinical correlation is essential. LAB L501.1110 >60 mL/min Low EST GFR 50 Result Comment: Non- GFR Calc LAB L501.1115 >60 mL/min Normal EST GFR - AA 60 Result Comment: GFR Calc LAB L501.1300 10-20 RATIO High BUN/CRE 33.6 LAB L501.2200 8.5-10.1 mg/dL CA Normal 9.2 LAB L501.5300 136-145 mmol/L NA Normal 137 LAB L501.5600 3.5-5.1 mmol/L K Normal 4.4 LAB L501.5900 98-107 mmol/L CL Normal 103 LAB L501.6100 21.0-32.0 mmol/L Normal CO2 29.0 LAB L501.6200 5-15 Normal GAP 5 Performed By: #### L500.2500 #### [facility] [address] [place], [address] CBC-COMPLETE BLOOD CNT Collected: 11/15/2017 Status: F Source: HECTOR NO DIFF 9:51 AM [facility] REPOSITORY Order Comment: WANTS THE LIPID CBC RENAL PROCRE WANTS THE TSH T4F TYPE CODE TESTS RESULT OUT OF RANGE REFERENCE UNITS LAB L100.1000 4.4-11.0 K/mm3 Normal WBC 5.8 LAB L100.1200 4.2-5.4 M/mm3 Low RBC 3.49 LAB L100.1300 12.0-15.0 g/dl Low HGB 10.8 LAB L100.1400 37-47 % Low HCT 32.2 LAB L100.1500 81-99 fL Normal MCV 92.3 LAB L100.1600 27.0-32.0 pg Normal MCH 30.9 LAB L100.1700 32-36 g/gl Normal MCHC 33.5 LAB L100.1810 11.6-14.6 % Normal RDW CV 13.4 LAB L100.1820 35.1-43.9 fl High RDW SD 44.0 LAB L100.1900 150-450 K/mm3 Normal PLT 228 LAB L100.2000 6.2-12.0 fl Normal MPV 10.3 Performed By: #### L100.0500 #### [facility] [address] [place], [address] PROTEIN+CREATININE Collected: Status: F Source: HECTOR RATIO,URINE 11/15/2017 9:51 AM [facility] REPOSITORY Order Comment: WANTS THE LIPID CBC RENAL PROCRE WANTS THE TSH T4F TYPE CODE TESTS RESULT OUT OF RANGE REFERENCE UNITS LAB L501.1200 NO RANGE EST. mg/dL Normal UR CREAT 63.10 LAB L501.1930 <11.9 mg/dL High 388.7 PROTEIN,UR.R AN. LAB L501.1940 0-200 mg/g CRE High PROT:CRE [id number] RATIO Performed By: #### L501.0900 #### [facility] [address] [place], [address] RENAL PROFILE Collected: 11/15/2017 Status: F Source: [place]ECTOR 9:51 AM [facility] REPOSITORY Order Comment: WANTS THE LIPID CBC RENAL PROCRE WANTS THE TSH T4F TYPE CODE TESTS RESULT OUT OF RANGE REFERENCE UNITS LAB L501.0100 70-110 mg/dL Normal GLU 90 LAB L501.1000 7-18 mg/dL High BUN 26 LAB L501.1100 0.55-1.02 mg/dL Normal 0.99 CREAT,SERUM Result Comment: The validity of the calculated GFR AND GFRAA in patients over 70 years has not been determined. Clinical correlation is essential. LAB L501.1110 >60 mL/min Normal EST GFR 60 Result Comment: Non- GFR Calc LAB L501.1115 >60 mL/min Normal EST GFR - AA 72 Result Comment: GFR Calc LAB L501.1300 10-20 RATIO High BUN/CRE 26.3 LAB L501.1800 3.2-5.0 g/dL Low ALB 2.5 LAB L501.2200 8.5-10.1 mg/dL CA Normal 9.1 LAB L501.2300 2.5-4.9 mg/dL Normal PHOS 4.2 LAB L501.5300 136-145 mmol/L NA Normal 137 LAB L501.5600 3.5-5.1 mmol/L K Normal 4.9 LAB L501.5900 98-107 mmol/L CL Normal 101 LAB L501.6100 21.0-32.0 mmol/L Normal CO2 28.0 Performed By: #### L500.3600, L500.4100, L501.9520, L506.0400 #### [facility] [address] [place], [place], [address] LIPID PROFILE Collected: 11/15/2017 Status: F Source: [place] 9:51 AM [facility] REPOSITORY Order Comment: WANTS THE LIPID CBC RENAL PROCRE WANTS THE TSH T4F TYPE CODE TESTS RESULT OUT OF RANGE REFERENCE UNITS LAB L501.4900 200 mg/dL Normal CHOL 191 Result Comment: <200 mg/dL Desirable 200-240 mg/dL Borderline >240 mg/dL High Risk LAB L501.5000 mg/dL Normal TRIG 76 Result Comment: The drugs N-Acetylcysteine and Metamizole may falsely depress this assay. Serum Triglycerides Reference Interval Normal <150 mg/dL Borderline high 150 - 199 mg/dL High 200 - 499 mg/dL Very High > or = 500 mg/dL LAB L501.6400 mg/dL Normal HDL 73 Result Comment: The drugs N-Acetylcysteine and Metamizole may falsely depress this assay. Reference Range HDL <40 mg/dL Low HDL Cholesterol HDL >or= 60 mg/dL High HDL Cholesterol LAB L501.6500 0-130 mg/dL Normal LDL 103 LAB L501.6600 5-40 mg/dL Normal VLDL 15 Performed By: #### L500.3600, L500.4100, L501.9520, L506.0400 #### [facility] [address] [place], [address] THYROID STIM HORMONE Collected: 11/15/2017 Status: F Source: HECTOR (TSH) 9:51 AM [facility] REPOSITORY Order Comment: WANTS THE LIPID CBC RENAL PROCRE WANTS THE TSH T4F TYPE CODE TESTS RESULT OUT OF RANGE REFERENCE UNITS LAB L501.9520 0.358-3.74 uIU/mL Low TSH 0.25 Performed By: #### L500.3600, L500.4100, L501.9520, L506.0400 #### [facility] [address] [place], [address] T4 FREE DIRECT Collected: 11/15/2017 Status: F Source: HECTOR 9:51 AM [facility] REPOSITORY Order Comment: WANTS THE LIPID CBC RENAL PROCRE WANTS THE TSH T4F TYPE CODE TESTS RESULT OUT OF REFERENCE UNITS RANGE LAB L506.0400 0.76-1.46 ng/dL High T4 FREE 1.77 DIRECT Performed By: #### L500.3600, L500.4100, L501.9520, L506.0400 #### [facility] [address] [place], [address] ECHOCARDIOGRAM COMPLETE Observed: 11/07/2017 Status: F Source: HECTOR 8:27 PM [facility] REPOSITORY [facility] [address] [place] [address] Echo Complete 11/07/17 1004 MR#: [id number] Acct: [id number] Name: SUSANNE COLINDRES Rep #: [id number] : 1950 66 From: Sami Oleary MD Attending Dr: Sami Oleary MD Status: REG CLI Ordering Dr: Sami Oleary MD Date: 11/07/17 Location: [facility] Sex: F C Admitted: Reason For Study: MURMUR Procedure This was a 2D Doppler, Color Flow transthoracic echocardiogram. The exam was of adequate technical quality. Exam performed in department. Left Ventricle Normal LV size. Mild concentric left ventricular hypertrophy. Apical false tendon noted. Left ventricular systolic function is normal. The estimated ejection fraction is 55 %. Right Ventricle Normal RV size. Normal systolic function. Atria The left atrium is moderately enlarged. Normal right atrium. No doppler evidence for ASD. Mitral Valve There is no mitral annular calcification. Mild diffuse mitral valve thickening. Mild focal mitral valve calcification of the anterior leaflet. The mitral valve chordae are thickened and/or calcified. Moderate (2+) eccentric mitral valve insufficiency. Tricuspid Valve Normal tricuspid valve. Mild tricuspid valve insufficiency. Right ventricular systolic pressure estimated to be 35 mmHg. Aortic Valve Trisinus/trileaflet aortic valve. Normal aortic valve. Pulmonic Valve The pulmonic valve is not well visualized. Mild (1+) pulmonic valve insufficiency. Great Vessels Normal sized aortic root. Pericardium/Pleural No pericardial effusion. MMode/2D Measurements AND Calculations LVIDd: 5.0 cm IVSd: 1.3 cm Ao root diam: 2.8 cm LVIDs: 3.4 cm LVPWd: 1.3 cm LA dimension: 4.9 cm RVDd: 3.1 cm FS: 31.7 % LAV(MOD-bp): 98.5 ml LA A4 area: 24.8 cm2 RA A4 area: 16.9 cm2 LAV(MOD-bp) Indexed: 61.8 ml/m2 LAV(MOD-sp2): 102.8 ml LAV(MOD-sp4): 94.2 ml Doppler Measurements AND Calculations MV E max riley: 149.9 cm/sec Lat Peak E' Riley: 9.6 cm/sec Med Peak E' Riley: 6.6 cm/sec MV A max riley: 105.4 cm/sec E/E' lat: 15.6 E/E' med: 22.8 MV E/A: 1.4 Ao V2 max: 178.4 cm/sec LV V1 max: 87.8 cm/sec MR max riley: 571.6 cm/sec Ao max P.7 mmHg LV V1 max P.1 mmHg MR max P.7 mmHg Ao V2 mean: 129.6 cm/sec LV V1 mean P.7 mmHg MR mean riley: 434.9 cm/sec Ao mean P.2 mmHg LV V1 mean: 61.9 cm/sec MR mean P.4 mmHg Ao V2 VTI: 40.1 cm LV V1 VTI: 19.4 cm MR VTI: 197.8 cm PA V2 max: 113.8 cm/sec TR max riley: 280.5 cm/sec TR max P.6 mmHg Interpretation Summary Left ventricular systolic function is normal. The estimated ejection fraction is 55 %. Mild concentric left ventricular hypertrophy. Apical false tendon noted. The left atrium is moderately enlarged. Mild diffuse mitral valve thickening. Mild focal mitral valve calcification of the anterior leaflet. The mitral valve chordae are thickened and/or calcified. Moderate (2+) eccentric mitral valve insufficiency. Mild tricuspid valve insufficiency. Mild (1+) pulmonic valve insufficiency. Right ventricular systolic pressure estimated to be 35 mmHg. Ordering Physician: Sami Oleary Referring Physician: Shyla Morales Performed By: Greer Sheridan, KHANH, RVT 11/07/172025 Date Sami Oleary MD CC: Shyla Morales MD; Sami Oleary MD Date Dictated: 11/07/17 1004 Date Transcribed: 11/07/172025 Shot Man: Signed BASIC METABOLIC PANL Collected: 10/29/2017 Status: F Source: [place] 8:19 AM [facility] REPOSITORY TYPE CODE TESTS RESULT OUT OF REFERENCE UNITS RANGE LAB GLU 74-99 mg/dL High Glucose 107 Result Comment: The English Diabetes Association (ADA) provides guidance for cutoff values for fasting glucose and random glucose. The ADA defines fasting as no caloric intake for at least 8 hours. Fas ting plasma glucose results between 100 to 125 mg/dL indicate increased risk for diabetes (prediabetes). Fasting plasma glucose results greater than or equal to 126 mg/dL meet the criteria for diagnosis of diabetes. In the absence of unequivocal hyperglycemia, results should be confirmed by repeat testing. In a patient with classic symptoms of hyperglycemia or hyperglycemic crisis, random plasma glucose results greater than or equal to 200 mg/dL meet the criteria for diagnosis of diabetes. Reference: Standards of Medical Care in Diabetes 2016, English Diabetes Association. Diabetes Care. 2016.39(Suppl 1). LAB BUN 7-21 mg/dL BUN High 35 LAB CRET 0.58-0.96 mg/dL Creatinine High 1.27 LAB NA 136-144 mmol/L Sodium 138 LAB K 3.7-5.1 mmol/L Potassium 4.5 LAB CL 97-105 mmol/L Chloride 100 LAB CO2 22-30 mmol/L CO2 29 LAB AGAP 9-18 mmol/L Anion Gap 9 LAB CA 8.5-10.2 mg/dL Calcium, Total 9.7 LAB GFRAA eGFR- Amer. 51 LAB GFRNAA . eGFR-All Other Races 42 Result Comment: eGFR (Estimated GFR) Units of measure: mL/min/1.73 meters squared eGFR is derived from the reexpressed MDRD Study equation using the following parameters: serum creatinine, age, gender and race. The creatinine assay has been calibrated to be traceable to IDMS. An eGFR <60 mL/min/1.73m2 for >3 months is consistent with chronic kidney disease. Refer to KDOQI guidelines for clinical interpretation. In patients with unstable renal function, e.g. those with acute kidney injury, the eGFR may not accurately reflect actual GFR. Performed By: #### BMP, LIPB, MG1, TSH #### [facility] [address] [place], [place] [address] LIPID PANEL, BASIC Collected: 10/29/2017 Status: F Source: [place] 8:19 AM [facility] REPOSITORY TYPE CODE TESTS RESULT OUT OF REFERENCE UNITS RANGE LAB CHOL <200 mg/dL Cholesterol 189 Result Comment: <200 mg/dL, Desirable 200-239 mg/dL, Borderline high >239 mg/dL, High LAB TRIGLY <150 mg/dL Triglyceride 54 Result Comment: <150 mg/dL, Normal 150-199 mg/dL, Borderline high 200-499 mg/dL, High >499 mg/dL, Very high LAB HDL >39 mg/dL HDL-Cholesterol 78 Result Comment: 40-59 mg/dL, Acceptable >59 mg/dL, High: Negative risk factor for coronary heart disease <40 mg/dL, Low: Positive risk factor for coronary heart disease LAB LDL <100 mg/dL LDL-Cholesterol High 100 Result Comment: <100 mg/dL, Optimal 100-129 mg/dL, Near optimal/above optimal 130-159 mg/dL, Borderline high 160-189 mg/dL, High >189 mg/dL, Very high Secondary prevention optimal LDL Cholesterol levels are recommended to be < 70 mg/dL LAB NONHDL <130 mg/dL Non HDL Cholesterol 111 Result Comment: <130 mg/dL, Optimal 130-159 mg/dL, Near optimal/above optimal 160-189 mg/dL, Borderline high 190-219 mg/dL, High >219 mg/dL, Very high Secondary prevention optimal non HDL Cholesterol levels are recommended to be < 100 mg/dL LAB FT hrs Fasting Time 12 LAB VLDL <30 mg/dL VLDL Cholesterol 11 LAB TCHDL <5.10 TC:HDL Ratio 2.42 LAB LDLHDL <2.54 LDL:HDL Ratio 1.28 Result Comment: Reference: 1. National Cholesterol Education Program ATP III Guideline At-A-Glance Quick Desk Reference: National Heart, Lung, and Blood [place]. National Institutes of Health. 2001: NIH Publication No. 01-3305. 2. An International Atherosclerosis Society position paper: global recommendations for the management of dyslipidemia: executive summary, Atherosclerosis. 2014: 232(2):410-413. Performed By: #### BMP, LIPB, MG1, TSH #### [facility] [employer] [address] [address] MAGNESIUM Collected: 10/29/2017 Status: F Source: [place] 8:19 AM [facility] REPOSITORY TYPE CODE TESTS RESULT OUT OF REFERENCE UNITS RANGE LAB MG 1.7-2.3 mg/dL Magnesium 1.7 Performed By: #### BMP, LIPB, MG1, TSH #### [facility] [employer] [address] [address] TSH Collected: 10/29/2017 Status: F Source: [place] 8:19 AM [facility] REPOSITORY TYPE CODE TESTS RESULT OUT OF RANGE REFERENCE UNITS LAB TSH 0.400-5.500 uU/mL TSH 0.527 Performed By: #### BMP, LIPB, MG1, TSH #### [facility] [employer] [address] [place] [address] PROGRESS Observed: 10/28/2017 Status: COMPLETED Source: [place] 11:05 AM [facility] REPOSITORY HNO ID: [id number] Author: Shyla Morales Service: (none) Author Type: Physician Type: Progress Notes Filed: 10/28/2017 5:38 PM Note Text: Reason for Visit Patient presents with: Established Patient: 3 month follow up Susanne Colindres is a 66 year old female who presents here today for Above Complaints.. Health Maintenance ADULT PREVNAR-13 PNEUMOVAX AGE 65 AND OVER WITH 5YR LOOKBACK(1) INFLUENZA(1) HPI BP is better controlled but still mildly high, Her pedal swelling is Still presents and she is taking lasix. Recent labs show low na and high potassium- need to recheck numbers Thyroid is as close to normal as she has been in a while, it rechecked Lipids are not checked recently we will check them. No problem-specific Assessment AND Plan notes found for this encounter. PAST MEDICAL HISTORY Diagnosis Date - Circumscribed scleroderma - Dysthymic disorder Depression (non-psychotic) - Female stress incontinence - PMH - PAST MEDICAL HISTORY OF knee and sciatic nerve - Postmenopausal atrophic vaginitis - Rheumatic heart disease, unspecified Rheumatic fever Murmur and treated with PCN for 18 years - Symptomatic menopausal or female climacteric states - Unspecified hypothyroidism Hypothyroidism - Urgency of urination PAST SURGICAL HISTORY Procedure Laterality Date - COLONOSCOP W/ OR W/O [facility] SPEC 11/02/2013 Colonoscopy - DANDC, DIAG AND/OR THERAPEUTIC prior to 1994 Dilation AND curettage/polypectomy - LIGATE FALLOPIAN TUBE 1979 Tubal ligation - TOTAL HIP REPLACEMENT 10/16/2011 Hip replacement, total right - [facility] Dr. Schofield - FAMILY HISTORY Problem Relation Age of Onset - Thyroid Father - Heart Father Bypass - Thyroid Mother - Thyroid Sister - Thyroid Sister - Breast Cancer Maternal Aunt - Breast Cancer Maternal Aunt Social History Substance Use Topics - Smoking status: Never Smoker - Smokeless tobacco: Never Used - Alcohol use No Past medical history, appointments, medications, allergies reviewed. Pertinent Lab/Diagnostic Studies are reviewed and discussed today Current Outpatient Prescriptions: - diltiazem CD (CARDIZEM CD) 180 mg 24 hr capsule - levothyroxine (LEVOXYL) 175 mcg tablet - losartan (COZAAR) 50 mg tablet - spironolactone (ALDACTONE) 50 mg tablet - furosemide (LASIX) 40 mg tablet - atenolol (TENORMIN) 50 mg tablet - COMPOUNDED PRESCRIPTION - atorvastatin (LIPITOR) 80 mg tablet - FLUoxetine (PROZAC) 20 mg capsule - buPROPion SR (ZYBAN SR; WELLBUTRIN SR) 150 mg 12 hr tablet - Omeprazole (PRILOSEC) 40 mg capsule - CALCIUM CARBONATE/VITAMIN D3 (CALCIUM + VITAMIN D ORAL) Review of Systems CONSTITUTIONAL: No fevers, chills night sweats, unintended weight loss CARDIOVASCULAR: No chest pain, dyspnea, palpitations, orthopnea, PND, ankle edema. PULM: No dyspnea, unexplained cough. GI: No dysphagia/odynophagia, problematic reflux, constipation, diarrhea, changes in stool habits, hematochezia, melena. : No new urinary complaints, including dysuria, gross hematuria or pyuria. NEURO: No new balance problems, peripheral weakness/paresthesias or numbness of concern. Physical Exam BP 144/60 (BP Site: Left Arm, BP Position: Sitting, BP Cuff Size: Regular Adult) Pulse 65 Resp 12 Ht 154.9 cm (5' 1) Wt 61.7 kg (136 lb) LMP 02/25/2008 SpO2 98% BMI 25.7 kg/m2 General appearance: Well appearing, alert, in no acute distress, well nourished. Skin: Skin color, texture, turgor normal, no suspicious rashes or lesions Head: Normocephalic, no masses, lesions, tenderness or abnormalities Eyes: Anicteric sclera. Pupils are equally round and reactive to light. Extraocular movements are intact. Lungs: Lungs clear to auscultation. No wheezing, rhonchi, rales Heart: RRR without murmur, gallop, or rubs. Extremities: No deformities, edema, skin discoloration, clubbing or cyanosis. Good capillary refill. ASSESSMENT/PLAN: 1. Nephrotic syndrome - ICD9: 581.9, ICD10: N04.9 (primary diagnosis) Her electrolytes were low, need to recheck and discuss with Dr. Quinones - MAGNESIUM TEETEE 2. Mixed hyperlipidemia - ICD9: 272.2, ICD10: E78.2 Recheck is required - LIPID PANEL BASIC 3. Essential hypertension - ICD9: 401.9, ICD10: I10 - good control - Recommended regular aerobic exercise. - Recommend home blood pressure monitoring, to bring results in on next visit - Goal of BP <130/80 - BASIC METABOLIC PNL 4. Depression with anxiety - ICD9: 300.4, ICD10: F41.8 To stay on her ssri and wellbutrin as they work well for her 5. Acquired hypothyroidism - ICD9: 244.9, ICD10: E03.9 - need to recheck her levels. - TSH BLD SHYLA MORALES MD CNOV Observed: 10/28/2017 Status: COMPLETED Source: [place] 10:40 AM [facility] RE[facility]ITORY Office Visit (INTMWS) SUSANNE COLINDRES ([id number]) 1950 F Date Time Provider Department 10/28/17 10:40 AM SHYLA MORALES During your visit today, we recorded the following information about you: Pulse Respiration Blood pressure Weight 65/minute 12/minute 144/60 61.7 kg Height 1.549 m SHYLA MORALES MD 10/28/2017 5:38 PM Signed Reason for Visit Patient presents with: Established Patient: 3 month follow up Susanne Colindres is a 66 year old female who presents here today for Above Complaints.. Health Maintenance ADULT PREVNAR-13 PNEUMOVAX AGE 65 AND OVER WITH 5YR LOOKBACK(1) INFLUENZA(1) HPI BP is better controlled but still mildly high, Her pedal swelling is Still presents and she is taking lasix. Recent labs show low na and high potassium- need to recheck numbers Thyroid is as close to normal as she has been in a while, it rechecked Lipids are not checked recently we will check them. No problem-specific Assessment ANDamp; Plan notes found for this encounter. PAST MEDICAL HISTORY Diagnosis Date - Circumscribed scleroderma - Dysthymic disorder Depression (non-psychotic) - Female stress incontinence - PMH - PAST MEDICAL HISTORY OF knee and sciatic nerve - Postmenopausal atrophic vaginitis - Rheumatic heart disease, unspecified Rheumatic fever Murmur and treated with PCN for 18 years - Symptomatic menopausal or female climacteric states - Unspecified hypothyroidism Hypothyroidism - Urgency of urination PAST SURGICAL HISTORY Procedure Laterality Date - COLONOSCOP W/ OR W/O [facility] SPEC 11/02/2013 Colonoscopy - DANDamp;C, DIAG AND/OR THERAPEUTIC prior to 1994 Dilation ANDamp; curettage/polypectomy - LIGATE FALLOPIAN TUBE 1979 Tubal ligation - TOTAL HIP REPLACEMENT 10/16/2011 Hip replacement, total right - [facility] Dr. Schofield - FAMILY HISTORY Problem Relation Age of Onset - Thyroid Father - Heart Father Bypass - Thyroid Mother - Thyroid Sister - Thyroid Sister - Breast Cancer Maternal Aunt - Breast Cancer Maternal Aunt Social History Substance Use Topics - Smoking status: Never Smoker - Smokeless tobacco: Never Used - Alcohol use No Past medical history, appointments, medications, allergies reviewed. Pertinent Lab/Diagnostic Studies are reviewed and discussed today Current Outpatient Prescriptions: - diltiazem CD (CARDIZEM CD) 180 mg 24 hr capsule - levothyroxine (LEVOXYL) 175 mcg tablet - losartan (COZAAR) 50 mg tablet - spironolactone (ALDACTONE) 50 mg tablet - furosemide (LASIX) 40 mg tablet - atenolol (TENORMIN) 50 mg tablet - COMPOUNDED PRESCRIPTION - atorvastatin (LIPITOR) 80 mg tablet - FLUoxetine (PROZAC) 20 mg capsule - buPROPion SR (ZYBAN SR; WELLBUTRIN SR) 150 mg 12 hr tablet - Omeprazole (PRILOSEC) 40 mg capsule - CALCIUM CARBONATE/VITAMIN D3 (CALCIUM + VITAMIN D ORAL) Review of Systems CONSTITUTIONAL: No fevers, chills night sweats, unintended weight loss CARDIOVASCULAR: No chest pain, dyspnea, palpitations, orthopnea, PND, ankle edema. PULM: No dyspnea, unexplained cough. GI: No dysphagia/odynophagia, problematic reflux, constipation, diarrhea, changes in stool habits, hematochezia, melena. : No new urinary complaints, including dysuria, gross hematuria or pyuria. NEURO: No new balance problems, peripheral weakness/paresthesias or numbness of concern. Physical Exam BP 144/60 (BP Site: Left Arm, BP Position: Sitting, BP Cuff Size: Regular Adult) Pulse 65 Resp 12 Ht 154.9 cm (5' 1ANDquot;) Wt 61.7 kg (136 lb) LMP 02/25/2008 SpO2 98% BMI 25.7 kg/m2 General appearance: Well appearing, alert, in no acute distress, well nourished. Skin: Skin color, texture, turgor normal, no suspicious rashes or lesions Head: Normocephalic, no masses, lesions, tenderness or abnormalities Eyes: Anicteric sclera. Pupils are equally round and reactive to light. Extraocular movements are intact. Lungs: Lungs clear to auscultation. No wheezing, rhonchi, rales Heart: RRR without murmur, gallop, or rubs. Extremities: No deformities, edema, skin discoloration, clubbing or cyanosis. Good capillary refill. ASSESSMENT/PLAN: 1. Nephrotic syndrome - ICD9: 581.9, ICD10: N04.9 (primary diagnosis) Her electrolytes were low, need to recheck and discuss with Dr. Quinones - MAGNESIUM BLD 2. Mixed hyperlipidemia - ICD9: 272.2, ICD10: E78.2 Recheck is required - LIPID PANEL BASIC 3. Essential hypertension - ICD9: 401.9, ICD10: I10 - good control - Recommended regular aerobic exercise. - Recommend home blood pressure monitoring, to bring results in on next visit - Goal of BP ANDlt;130/80 - BASIC METABOLIC PNL 4. Depression with anxiety - ICD9: 300.4, ICD10: F41.8 To stay on her ssri and wellbutrin as they work well for her 5. Acquired hypothyroidism - ICD9: 244.9, ICD10: E03.9 - need to recheck her levels. - TSH BLD SHYLA MORALES MD Referring Provider: SHYLA MORALES [[id number]] Allergies As of Date: 10/28/2017 Noted Allergy Reaction LISINOPRIL 03/03/2009 3 - Cough PENICILLINS 01/31/2006 Comments: yeast infection Date Reviewed: 10/28/2017 Reviewed by: Epifanio Calles LPN - Fully Assessed Reason for Visit: Established Patient [175] Cmt: 3 month follow up Primary Visit Diagnosis:Nephrotic syndrome [N04.9] Other Visit Diagnoses:Mixed hyperlipidemia [E78.2] Essential hypertension [I10] Depression with anxiety [F41.8] Acquired hypothyroidism [E03.9] Order(s):atorvastatin (LIPITOR) 40 mg tabletTake 1 tablet by mouth once daily.Disp: 90 tabletRfl: 3 BASIC METABOLIC PNL [SQBMP] Order #: [id number] FUTURE LIPID PANEL BASIC [SQLIPB] Order #: [id number] FUTURE TSH BLD [SQTSH] Order #: [id number] FUTURE MAGNESIUM BLD [SQMG1] Order #: [id number] FUTURE Prescriptions as of 10/28/2017 Sig: DILTIAZEM SR 180 MG 24 HR CAP Take 1 capsule by mouth once * LEVOTHYROXINE 175 MCG TABLET Take 1 tablet by mouth once d* LOSARTAN 50 MG TABLET Take 1 tablet by mouth twice * ATENOLOL 50 MG TABLET Take 0.5 tablets by mouth onc* FLUOXETINE 20 MG CAPSULE Take 1 capsule by mouth once * BUPROPION HCL SR 150 MG TABLE* Take 1 tablet by mouth twice * OMEPRAZOLE 40 MG CAPSULE,QASIM* Take 1 capsule by mouth once * * CALCIUM + VITAMIN D ORAL Take by mouth twice daily. SPIRONOLACTONE 50 MG TABLET Take 1 tablet by mouth once d* FUROSEMIDE 40 MG TABLET Take 1 tablet by mouth once d* ATORVASTATIN 40 MG TABLET Take 1 tablet by mouth once d* COMPOUNDED PRESCRIPTION Consult endo: Dr. Jorge Maher* Problem List As Of Date 10/28/2017 Noted Resolved OSTEOCHONDROPATHY NOS [M93.90] INVALID FOR* ILEALTIBIAL BAND FRICTION SYND [M62.9] INVALID FOR* SCREENING MAL NEOP-CERVIX [Z12.4] INVALID FOR* SYMPTOMATIC FEMALE CLIMACTERIC STATE [N95.1] INVALID FOR* STRICTURE OF CERVIX [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 Major depressive disorder in partial remission *INVALID FOR* Hypertension [I10] INVALID FOR* More... Hypothyroid [E03.9] INVALID FOR* More... Lichen sclerosus [L90.0] INVALID FOR* MDD (major depressive disorder) (HCC) [F32.9] INVALID FOR* Depression with anxiety [F41.8] INVALID FOR* More... Moderate mitral regurgitation [I34.0] INVALID FOR* Pulmonary hypertension, secondary (HCC) [MZF091*INVALID FOR* Proteinuria [R80.9] INVALID FOR* Stage 3 chronic kidney disease [N18.3] INVALID FOR* More... Dependent edema [R60.9] INVALID FOR* Nephrotic syndrome [N04.9] INVALID FOR* More... Prescriptions ordered this encounter Disp Refills Start End ATORVASTATIN 40 MG TABLET 90 t* 3 10/28/2017 Route: ORAL Sig: Take 1 tablet by mouth once daily. Medications Discontinued During This Encounter spironolactone (ALDACTONE) 50 mg tab* 09/04/2017 10/28/2017 Class: Med Update Route: ORAL Sig: Take 1 tablet by mouth once daily. Disc: Reason for discontinue is not on file. atorvastatin (LIPITOR) 80 mg tablet 90 t* 3 07/08/2017 10/28/2017 Route: ORAL Sig: Take 0.5 tablets by mouth once daily. Disc: Reason for discontinue is not on file. furosemide (LASIX) 40 mg tablet 09/04/2017 10/28/2017 Class: Med Update Route: ORAL Sig: Take 1 tablet by mouth twice daily. Disc: Reason for discontinue is not on file. Encounter Status:Closed by SHYLA MORALES MD on 10/28/17 CARDIOLOGY VISIT Observed: 10/17/2017 Status: F Source: [place] REPORT 11:37 AM [facility] [place] REPOSITORY [facility] [address] [place] [address] OFFICE VISIT Date of Service: 10/17/17 MR#: [id number] Acct: [id number] Name: SUSANNE COLINDRES Rep #: [id number] : 1950 Provider: Sami Oleary MD Age/Sex: 66/F [place] [facility] [place]: Signed HPI HIGH BP AND MURMUR/REF. DR. SOLO: Details: SUSANNE COLINDRES, is a 66 F who presents to the office today for for outpatient cardiovascular consultation based upon a history of underlying rheumatic mitral valve disorder/regurgitation, shortness of breath/dyspnea, edema, superimposed upon hyperlipidemia, hypertension, hypothyroidism, and an underlying renal disorder . The patient states that she was having issues with shortness of breath and edema. She is being evaluated by multiple subspecialists. This included [facility] cardiology. 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 However at the same time she states there were issues with her thyroid disorder and she was found to have issues with a renal disorder which she believes entails losing protein . She was treated medically for her multiple disorders. She has had improvement in her overall symptoms of her shortness of breath and her edema. At the present time she remains active. She works for the [employer]. 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 However she remains active indoors and has not been complaining of any associated chest discomfort concerning for angina pectoris. She has not had progressive shortness of breath at this time associated with acute CHF or pulmonary edema. There has been no near syncope or syncope. She has had waxing and waning lower extremity peripheral pitting edema. She states this has improved and the present time has trace bilateral lower extremity edema. It appears that she had a transthoracic echocardiogram performed through the [facility] system on 10/09/2016. At that time her left ventricle was thought to be normal with an LVEF of 56%, the left atrium was reported as severely dilated, the mitral valve was reported as demonstrating moderate thickening of the leaflet tips and doming of the anterior leaflet with moderate mitral valve regurgitation. There was also mild TR. She has not had any other cardiovascular studies to the best of her knowledge. She did have an ECG in the office today. She was noted to be in sinus rhythm. She had poor R-wave progression. Intake Vital Signs10/17/17 Height 5 ft 10/17/17 Weight: 133 lb 5 oz 10/17/17 Body Mass Index (BMI) 26.0 10/17/17 Blood Pressure 122/58 Intake Visit Reasons: HIGH BP AND MURMUR/REF. DR. SOLO Allergies Penicillins [PCN] Allergy (Verified 08/16/17 09:44) Unknown lisinopril Adverse Reaction (Intermediate, Verified 10/16/17 09:42) cough Medications Atorvastatin Calcium [Lipitor] 40 mg PO BID 08/16/17 [History Confirmed 10/17/17] Cholecalciferol (Vitamin D3) [Vitamin D3] 2,000 unit PO DAILY 08/16/17 [History Confirmed 10/17/17] Fluoxetine [Prozac] 20 mg PO DAILY 08/16/17 [History Confirmed 10/17/17] Losartan Potassium [Cozaar] 50 mg PO BID 08/16/17 [History Confirmed 10/17/17] Spironolactone 25 mg PO DAILY 08/16/17 [History Confirmed 10/17/17] Lactobacillus acidophilus capsule 10 mg PO QDAY 10/17/17 [History Confirmed 10/17/17] acetaminophen 500 mg capsule 500 mg PO Q6H PRN 10/17/17 [History Confirmed 10/17/17] atenolol 50 mg tablet 50 mg PO QDAY 10/17/17 [History Confirmed 10/17/17] bupropion HCl 100 mg tablet 150 mg PO BID tab 10/17/17 [History Confirmed 10/17/17] clindamycin HCl 300 mg capsule 300 mg PO Q6H cap 10/17/17 [History Confirmed 10/17/17] diltiazem CD 180 mg capsule,extended release 24 hr 180 mg PO QDAY 10/17/17 [History Confirmed 10/17/17] furosemide 40 mg tablet 40 mg PO QDAY 10/17/17 [History Confirmed 10/17/17] levothyroxine 175 mcg tablet 175 mcg PO QDAY tab 10/17/17 [History Confirmed 10/17/17] PFSH Medical History SOB (shortness of breath) (Acute) Edema (Acute) Rheumatic mitral regurgitation (Chronic) Hyperlipidemia (Chronic) Hypertension (Chronic) Hypothyroidism (Acute) CKD (chronic kidney disease) (Chronic) Hypothyroid (Inactive) Surgical History History of carpal tunnel surgery (Resolved) History of dilatation and curettage (Resolved) History of hip replacement, total (Resolved) History of tubal ligation (Resolved) Family History Father Heart disease Social History Smoking Status: Never smoker alcohol intake: never substance use type: does not use ROS Const Const: Negative for fatigue, weakness, weight gain, weight loss, frequent falls or excessive sweating Eyes Eyes: Negative for change in vision, blurry vision or transient loss of vision ENT ENT: Negative for dizziness, Positive for balance problems (with ambulating) Cardio Chest Pain: No Palpitations: Positive for Yes (occasional) Palpitations: fast, skipping Edema: None Muscle aches with walking: None Additional Details: Patient reports elevated BP at times 160- 190 systolic Resp Respiratory: Positive for SOB with activity (breathing at baseline); negative for SOB at rest GI GI: Negative vomiting or vomiting blood/hematemesis : Negative for hematuria Musc Musc: Positive for balance problems (with ambulating); negative for muscle aches/ myalgia, muscle weakness or joint pain Skin Skin: Negative non-healing lesions or rash Neuro Neuro: Negative for weakness, Negative for blurry vision, Negative for dizziness, Negative for lightheadedness, Negative for frequent falls, Negative for orthostatic symptoms Johnny Hematologic/Lymphatic: Negative for easy bleeding Endo Endo: Negative for fatigue or excessive sweating Psych Psych: Negative for anxiety or depression Allergy Allergy/Immunology: Negative for hives, Negative for rash Cardiology Exam Const Appearance: cooperative, healthy appearing, comfortable, no acute distress, well developed and well groomed Nutritional Appearance: average body habitus Orientation: alert, awake and oriented x3 Head Head: normal to inspection, normocephalic and atraumatic Ears: hearing grossly normal bilaterally Nose: external nose normal Face and Sinus: face symmetric Mouth: oral mucosae normal Teeth and gingiva: dentition normal Eyes General: appearance normal, both eyes and all related structures Eyelids: eyelids normal Pupils: PERRL EOM: EOM intact bilaterally Neck Neck: normal visual inspection Carotids: normal carotid upstroke Chest Chest inspection: normal inspection of the chest and symmetric chest movement Auscultation: Bilateral: Clear to Auscultation Cardio Palpation: normal PMI Rate: regular rate Rhythm: regular rhythm Heart sounds: S1 normal and S2 normal Murmur: Grade 2/6, harsh, holosystolic, LLSB, apex and axilla GI GI: normal to inspection, soft, no hepatosplenomegaly and bowel sounds present Neuro General: alert, awake and oriented x3 Skin Skin: no rashes or lesions noted Extremities Pulses: Normal: Right Radial Pulse, Left Radial Pulse Lower Extremity Edema: Trace: Bilateral Psych Psychological: normal affect Assessment AND Plan 1. Mitral valve regurgitation, rheumatic I05.1 Plan At the present time she appears to be without acute symptoms. She does have an underlying cardiac murmur compatible with her mitral valve regurgitation. Based upon her previous clinical course and her previous noninvasive studies it was felt not unreasonable that she have a follow-up transthoracic echocardiogram to reassess her cardiac chamber size, function, and her mitral valve anatomy and physiology. This may assist in ongoing evaluation and care. She was agreeable to this approach. Orders Orders: 2. Shortness of breath R06.02 Plan She states her breathing has improved overall as her multiple medical conditions have been treated. She will continue to monitor for any worsening symptoms or events. In the meantime she will continue her medical management. Orders Orders: 3. Edema R60.9 Plan She does have waxing and waning lower extremity peripheral pitting edema. Again she states this has improved overall since treating her multiple medical concerns. She will monitor her lower extremities and report any concerns. In the meantime she will continue her medications which include 2 different diuretics. Orders Orders: 4. Hyperlipidemia, unspecified hyperlipidemia type E78.5; E78.5; E78.5 Plan She states that her lipid profile became out of control when her thyroid disorder flared up . She is continuing to follow with her primary care physician for her lipid levels. She continues on medication in the interim. 5. Essential hypertension I10; I10; I10 Plan Her blood pressure appears to be recently well controlled at the moment. She will continue medical management and follow-up. Orders Orders: 6. Hypothyroidism, unspecified type E03.9; E03.9; E03.9 Plan Again she will continue to follow with her primary care physician for her underlying thyroid disorder. Plan Detail Other Medications Discontinued: levothyroxine Take with your 150mcg synthroid Disco25 mcg PO DAILY Taylor Green ntinued Reason: Order Changed Additional Comments Overall she will be scheduled for an outpatient cardiovascular follow-up in approximately 6 months. In the interim she will proceed as noted above. Thank you for allowing me to participate in the care of your patient. Please don't hesitate to call if any issues arise This note was generated using a voice recognition system and there may be incorrect words, spelling or punctuation that were not noted when reviewing the office note prior to saving. Follow Up 6 Months (PFM) 10/17/17 1137 <Electronically signed by Sami Oleary MD> Date Sami Oleary MD Cosigner Signature: Date (if applicable) CC: Shyla Morales MD 12 LEAD EKG PERFORMED Observed: 10/17/2017 Status: F Source: [place] 10:25 AM [facility] [place] REPOSITORY [facility] [address] [place] [address] 12 Lead EKG performed by JARETT 10/17/17 1025 MR#: [id number] Acct: [id number] Name: SUSANNE COLINDRES Rep #: [id number] : 1950 66 From: Sami Oleary MD Attending Dr: Sami Oleary MD Status: DEP AMB Ordering Dr: Sami Oleary MD Date: 10/17/17 [place] [facility] [place] Sex: F C Admitted: BMS/12 Lead EKG [place] [facility] [place] ECG Report Interpretation Sinus Rhythm Poor R wave progressionElectronically signed on 10/17/2017 at 11:04 by Sami Oleary 10/30/17 1614 Date Sami Oleary MD CC: Shyla Morales MD Date Dictated: 10/17/17 1025 Date Transcribed: 10/17/17 1025 Shot Man: PM Signed PROGRESS Observed: 10/11/2017 Status: COMPLETED Source: [place] 10:06 AM [facility] [place] REPOSITORY HNO ID: [id number] Author: Renee (Bale Breaker Operator) Ilda Service: (none) Author Type: Nurse Practitioner Type: Progress Notes Filed: 10/11/2017 11:49 AM Note Text: HPI Patient is a reliable 66 year old female here today with a 1 day history of left tooth and ear pain. States pain interfered with her sleep last evening. Tylenol with little relief. Nothing makes it better. Feels is is worse. States sensitivity to hot and cold. No fever. States her dentist is out of the office this week. No other concerns at this time. Review of Systems Constitutional: Negative for chills, fever and malaise/fatigue. HENT: Negative for congestion and ear pain (left). See HPI Cardiovascular: Negative. Gastrointestinal: Negative for diarrhea, nausea and vomiting. Neurological: Negative for headaches. All other systems reviewed and are negative. PAST MEDICAL HISTORY Diagnosis Date - Circumscribed scleroderma - Dysthymic disorder Depression (non-psychotic) - Female stress incontinence - PMH - PAST MEDICAL HISTORY OF knee and sciatic nerve - Postmenopausal atrophic vaginitis - Rheumatic heart disease, unspecified Rheumatic fever Murmur and treated with PCN for 18 years - Symptomatic menopausal or female climacteric states - Unspecified hypothyroidism Hypothyroidism - Urgency of urination PAST SURGICAL HISTORY Procedure Laterality Date - COLONOSCOP W/ OR W/O [facility] 11/02/2013 Colonoscopy - DANDC, DIAG AND/OR THERAPEUTIC prior to 1994 Dilation AND curettage/polypectomy - LIGATE FALLOPIAN TUBE 1979 Tubal ligation - TOTAL HIP REPLACEMENT 10/16/2011 Hip replacement, total right - [facility] Dr. Schofield - ALLERGIES Lisinopril; Penicillins MEDICATIONS diltiazem CD (CARDIZEM CD) 180 mg 24 hr capsule Take 1 capsule by mouth once daily. levothyroxine (LEVOXYL) 175 mcg tablet Take 1 tablet by mouth once daily. Take on empty stomach. For thyroid. losartan (COZAAR) 50 mg tablet Take 1 tablet by mouth twice daily. spironolactone (ALDACTONE) 50 mg tablet Take 1 tablet by mouth once daily. furosemide (LASIX) 40 mg tablet Take 1 tablet by mouth twice daily. COMPOUNDED PRESCRIPTION Consult endo: Dr. Jorge Esteves.Re: hypothyroidism acquired Hyponatremia atenolol (TENORMIN) 50 mg tablet Take 0.5 tablets by mouth once daily. atorvastatin (LIPITOR) 80 mg tablet Take 0.5 tablets by mouth once daily. FLUoxetine (PROZAC) 20 mg capsule Take 1 capsule by mouth once daily. buPROPion SR (ZYBAN SR; WELLBUTRIN SR) 150 mg 12 hr tablet Take 1 tablet by mouth twice daily. Omeprazole (PRILOSEC) 40 mg capsule Take 1 capsule by mouth once daily. CALCIUM CARBONATE/VITAMIN D3 (CALCIUM + VITAMIN D ORAL) Take by mouth twice daily. clindamycin (CLEOCIN) 300 mg capsule Take 1 capsule by mouth four times daily for 7 days. FAMILY HISTORY Problem Relation Age of Onset - Thyroid Father - Heart Father Bypass - Thyroid Mother - Thyroid Sister - Thyroid Sister - Breast Cancer Maternal Aunt - Breast Cancer Maternal Aunt Social History Substance Use Topics - Smoking status: Never Smoker - Smokeless tobacco: Never Used - Alcohol use No BP 140/90 Pulse 76 Temp 36.3 ?C (97.4 ?F) (Tympanic) Resp 18 Wt 63.2 kg (139 lb 6.4 oz) LMP 02/25/2008 BMI 26.34 kg/m2 Physical Exam Constitutional: She is oriented to person, place, and time and well-developed, well-nourished, and in no distress. Vital signs are normal. She appears not dehydrated. No distress. HENT: Head: Normocephalic and atraumatic. Right Ear: Tympanic membrane, external ear and ear canal normal. Left Ear: Tympanic membrane, external ear and ear canal normal. Nose: Nose normal. Mouth/Throat: Neck: Neck supple. Cardiovascular: Normal rate and regular rhythm. Pulmonary/Chest: Effort normal and breath sounds normal. Lymphadenopathy: Head (right side): No submental, no submandibular and no tonsillar adenopathy present. Head (left side): No submental, no submandibular and no tonsillar adenopathy present. She has no cervical adenopathy. Neurological: She is oriented to person, place, and time. Skin: Skin is warm and dry. Psychiatric: Affect normal. Nursing note and vitals reviewed. ASSESSMENT/PLAN: 1. Tooth pain - ICD9: 525.9, ICD10: K08.89 - Will start oral ABX - Patient will call dentist and make an appointment for follow up - red flag discussed - CLINDAMYCIN HCL 300 MG CAPSULE Prescription instructions reviewed with patient as applicable. Patient advised if symptoms do not improve or if symptoms worsen sooner, to contact their primary care physician. Potential red flag symptoms discussed with the patient. Reviewed appropriate action plan to take if red flag symptoms occur. Patient agreeable to treatment plan. Renee Gonsales CNP CNOV Observed: 10/11/2017 Status: COMPLETED Source: [place] 9:15 AM [facility] REPOSITORY Office Visit ([facility]) SUSANNE COLINDRES ([id number]) 1950 F Date Time Provider Department 10/11/17 9:15 AM RENEE GONSALES ([place]DR[place]) [facility] During your visit today, we recorded the following information about you: Temperature Pulse Respiration Blood pressure 97.4 degrees 76/minute 18/minute 140/90 Weight 63.2 kg Renee Gonsales CNP 10/11/2017 11:49 AM Signed HPI Patient is a reliable 66 year old female here today with a 1 day history of left tooth and ear pain. States pain interfered with her sleep last evening. Tylenol with little relief. Nothing makes it better. Feels is is worse. States sensitivity to hot and cold. No fever. States her dentist is out of the office this week. No other concerns at this time. Review of Systems Constitutional: Negative for chills, fever and malaise/fatigue. HENT: Negative for congestion and ear pain (left). See HPI Cardiovascular: Negative. Gastrointestinal: Negative for diarrhea, nausea and vomiting. Neurological: Negative for headaches. All other systems reviewed and are negative. PAST MEDICAL HISTORY Diagnosis Date - Circumscribed scleroderma - Dysthymic disorder Depression (non-psychotic) - Female stress incontinence - PMH - PAST MEDICAL HISTORY OF knee and sciatic nerve - Postmenopausal atrophic vaginitis - Rheumatic heart disease, unspecified Rheumatic fever Murmur and treated with PCN for 18 years - Symptomatic menopausal or female climacteric states - Unspecified hypothyroidism Hypothyroidism - Urgency of urination PAST SURGICAL HISTORY Procedure Laterality Date - COLONOSCOP W/ OR W/O [facility] 11/02/2013 Colonoscopy - DANDamp;C, DIAG AND/OR THERAPEUTIC prior to 1994 Dilation ANDamp; curettage/polypectomy - LIGATE FALLOPIAN TUBE 1979 Tubal ligation - TOTAL HIP REPLACEMENT 10/16/2011 Hip replacement, total right - [facility] Dr. Schofield - ALLERGIES Lisinopril; Penicillins MEDICATIONS diltiazem CD (CARDIZEM CD) 180 mg 24 hr capsule Take 1 capsule by mouth once daily. levothyroxine (LEVOXYL) 175 mcg tablet Take 1 tablet by mouth once daily. Take on empty stomach. For thyroid. losartan (COZAAR) 50 mg tablet Take 1 tablet by mouth twice daily. spironolactone (ALDACTONE) 50 mg tablet Take 1 tablet by mouth once daily. furosemide (LASIX) 40 mg tablet Take 1 tablet by mouth twice daily. COMPOUNDED PRESCRIPTION Consult endo: Dr. Jorge Esteves.Re: hypothyroidism acquired Hyponatremia atenolol (TENORMIN) 50 mg tablet Take 0.5 tablets by mouth once daily. atorvastatin (LIPITOR) 80 mg tablet Take 0.5 tablets by mouth once daily. FLUoxetine (PROZAC) 20 mg capsule Take 1 capsule by mouth once daily. buPROPion SR (ZYBAN SR; WELLBUTRIN SR) 150 mg 12 hr tablet Take 1 tablet by mouth twice daily. Omeprazole (PRILOSEC) 40 mg capsule Take 1 capsule by mouth once daily. CALCIUM CARBONATE/VITAMIN D3 (CALCIUM + VITAMIN D ORAL) Take by mouth twice daily. clindamycin (CLEOCIN) 300 mg capsule Take 1 capsule by mouth four times daily for 7 days. FAMILY HISTORY Problem Relation Age of Onset - Thyroid Father - Heart Father Bypass - Thyroid Mother - Thyroid Sister - Thyroid Sister - Breast Cancer Maternal Aunt - Breast Cancer Maternal Aunt Social History Substance Use Topics - Smoking status: Never Smoker - Smokeless tobacco: Never Used - Alcohol use No BP 140/90 Pulse 76 Temp 36.3 ?C (97.4 ?F) (Tympanic) Resp 18 Wt 63.2 kg (139 lb 6.4 oz) LMP 02/25/2008 BMI 26.34 kg/m2 Physical Exam Constitutional: She is oriented to person, place, and time and well-developed, well-nourished, and in no distress. Vital signs are normal. She appears not dehydrated. No distress. HENT: Head: Normocephalic and atraumatic. Right Ear: Tympanic membrane, external ear and ear canal normal. Left Ear: Tympanic membrane, external ear and ear canal normal. Nose: Nose normal. Mouth/Throat: Neck: Neck supple. Cardiovascular: Normal rate and regular rhythm. Pulmonary/Chest: Effort normal and breath sounds normal. Lymphadenopathy: Head (right side): No submental, no submandibular and no tonsillar adenopathy present. Head (left side): No submental, no submandibular and no tonsillar adenopathy present. She has no cervical adenopathy. Neurological: She is oriented to person, place, and time. Skin: Skin is warm and dry. Psychiatric: Affect normal. Nursing note and vitals reviewed. ASSESSMENT/PLAN: 1. Tooth pain - ICD9: 525.9, ICD10: K08.89 - Will start oral ABX - Patient will call dentist and make an appointment for follow up - red flag discussed - CLINDAMYCIN HCL 300 MG CAPSULE Prescription instructions reviewed with patient as applicable. Patient advised if symptoms do not improve or if symptoms worsen sooner, to contact their primary care physician. Potential red flag symptoms discussed with the patient. Reviewed appropriate action plan to take if red flag symptoms occur. Patient agreeable to treatment plan. Renee Gonsales CNP Referring Provider: SELF [[id number]] Allergies As of Date: 10/11/2017 Noted Allergy Reaction LISINOPRIL 03/03/2009 3 - Cough PENICILLINS 01/31/2006 Comments: yeast infection Date Reviewed: 10/11/2017 Reviewed by: Renee (Kendra) Ilda - Fully Assessed Reason for Visit: left ear pain and possible tooth infection [Other] Cmt: x 1 day Primary Visit Diagnosis:Tooth pain [K08.89] Order(s):clindamycin (CLEOCIN) 300 mg capsuleTake 1 capsule by mouth four times daily for 7 days.Disp: 28 capsuleRfl: 0 Prescriptions as of 10/11/2017 Sig: DILTIAZEM SR 180 MG 24 HR CAP Take 1 capsule by mouth once * LEVOTHYROXINE 175 MCG TABLET Take 1 tablet by mouth once d* LOSARTAN 50 MG TABLET Take 1 tablet by mouth twice * SPIRONOLACTONE 50 MG TABLET Take 1 tablet by mouth once d* FUROSEMIDE 40 MG TABLET Take 1 tablet by mouth twice * COMPOUNDED PRESCRIPTION Consult endo: Dr. Jorge Maher* ATENOLOL 50 MG TABLET Take 0.5 tablets by mouth onc* ATORVASTATIN 80 MG TABLET Take 0.5 tablets by mouth onc* FLUOXETINE 20 MG CAPSULE Take 1 capsule by mouth once * BUPROPION HCL SR 150 MG TABLE* Take 1 tablet by mouth twice * OMEPRAZOLE 40 MG CAPSULE,QASIM* Take 1 capsule by mouth once * * CALCIUM + VITAMIN D ORAL Take by mouth twice daily. CLINDAMYCIN HCL 300 MG CAPSULE Take 1 capsule by mouth four * Problem List As Of Date 10/11/2017 Noted Resolved OSTEOCHONDROPATHY NOS [M93.90] INVALID FOR* ILEALTIBIAL BAND FRICTION SYND [M62.9] INVALID FOR* SCREENING MAL NEOP-CERVIX [Z12.4] INVALID FOR* SYMPTOMATIC FEMALE CLIMACTERIC STATE [N95.1] INVALID FOR* STRICTURE OF CERVIX [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 Major depressive disorder in partial remission *INVALID FOR* Hypertension [I10] INVALID FOR* More... Hypothyroid [E03.9] INVALID FOR* More... Lichen sclerosus [L90.0] INVALID FOR* MDD (major depressive disorder) (HCC) [F32.9] INVALID FOR* Depression with anxiety [F41.8] INVALID FOR* More... Moderate mitral regurgitation [I34.0] INVALID FOR* Pulmonary hypertension, secondary (HCC) [[id number]*INVALID FOR* Proteinuria [R80.9] INVALID FOR* Stage 3 chronic kidney disease [N18.3] INVALID FOR* More... Dependent edema [R60.9] INVALID FOR* Nephrotic syndrome [N04.9] INVALID FOR* More... Prescriptions ordered this encounter Disp Refills Start End CLINDAMYCIN HCL 300 MG CAPSULE 28 c* 0 10/11/2017 10/18/2017 Route: ORAL Sig: Take 1 capsule by mouth four times daily for 7 days. Encounter Status:Closed by RENEE GONSALES CNP on 10/11/17 PROGRESS Observed: 10/02/2017 Status: COMPLETED Source: [place] 9:01 AM [facility] [place] REPOSITORY HNO ID: [id number] Author: Soheila Camacho) Older Service: (none) Author Type: Nurse Practitioner Type: Progress Notes Filed: 10/02/2017 9:48 AM Note Text: CC Patient presents with: 2 week BP follow up HPI Susanne Colindres is a 66 year old female who presents to the office in regards to elevated blood pressure follow-up. Patient's BP has been consistently high, asymptomatic except for mild headache. Last BP recheck two weeks ago, remained high at 180/90. Patient had appointment with travel services professional the next day who has been managing her BP so no changes made at that appointment. Today BP is much improved, 120/80. [employer]spring Truing Inspector increased Lasix to 40 mg in AM and 20 mg in the evening. Started on Cardizem ER 180 mg daily. BP and swelling have both improved per patient. Denies headache, chest pain, palpitations, dyspnea and fatigue. Patient denies any side effects of her medication(s) and is compliant with their regimen. Last 4 Encounter BP Readings: Date: BP: 10/02/2017 120/80 09/18/2017 180/90 09/04/2017 186/90 08/13/2017 147/80[BP Jake average[ Last 3 Encounter Wt Readings: Date: Wt: 10/02/2017 61.2 kg (135 lb) 09/18/2017 65.8 kg (145 lb) 09/04/2017 73 kg (161 lb) REVIEW OF SYSTEMS See HPI PAST MEDICAL HISTORY Diagnosis Date - Circumscribed scleroderma - Dysthymic disorder Depression (non-psychotic) - Female stress incontinence - PMH - PAST MEDICAL HISTORY OF knee and sciatic nerve - Postmenopausal atrophic vaginitis - Rheumatic heart disease, unspecified Rheumatic fever Murmur and treated with PCN for 18 years - Symptomatic menopausal or female climacteric states - Unspecified hypothyroidism Hypothyroidism - Urgency of urination PAST SURGICAL HISTORY Procedure Laterality Date - COLONOSCOP W/ OR W/O [facility] 11/02/2013 Colonoscopy - DANDC, DIAG AND/OR THERAPEUTIC prior to 1994 Dilation AND curettage/polypectomy - LIGATE FALLOPIAN TUBE 1979 Tubal ligation - TOTAL HIP REPLACEMENT 10/16/2011 Hip replacement, total right - [facility] Dr. Schofield - ALLERGIES Lisinopril; Penicillins MEDICATIONS diltiazem CD (CARDIZEM CD) 180 mg 24 hr capsule Take 1 capsule by mouth once daily. levothyroxine (LEVOXYL) 175 mcg tablet Take 1 tablet by mouth once daily. Take on empty stomach. For thyroid. losartan (COZAAR) 50 mg tablet Take 1 tablet by mouth twice daily. spironolactone (ALDACTONE) 50 mg tablet Take 1 tablet by mouth once daily. COMPOUNDED PRESCRIPTION Consult endo: Dr. Jorge Esteves.Re: hypothyroidism acquired Hyponatremia atenolol (TENORMIN) 50 mg tablet Take 0.5 tablets by mouth once daily. atorvastatin (LIPITOR) 80 mg tablet Take 0.5 tablets by mouth once daily. FLUoxetine (PROZAC) 20 mg capsule Take 1 capsule by mouth once daily. buPROPion SR (ZYBAN SR; WELLBUTRIN SR) 150 mg 12 hr tablet Take 1 tablet by mouth twice daily. Omeprazole (PRILOSEC) 40 mg capsule Take 1 capsule by mouth once daily. CALCIUM CARBONATE/VITAMIN D3 (CALCIUM + VITAMIN D ORAL) Take by mouth twice daily. furosemide (LASIX) 40 mg tablet Take 1 tablet by mouth twice daily. FAMILY HISTORY Problem Relation Age of Onset - Thyroid Father - Heart Father Bypass - Thyroid Mother - Thyroid Sister - Thyroid Sister - Breast Cancer Maternal Aunt - Breast Cancer Maternal Aunt Social History Substance Use Topics - Smoking status: Never Smoker - Smokeless tobacco: Never Used - Alcohol use No PHYSICAL EXAM BP 120/80 Pulse 82 Temp 36.1 ?C (96.9 ?F) (Temporal Artery) Resp 14 Wt 61.2 kg (135 lb) LMP 02/25/2008 SpO2 98% BMI 25.51 kg/m2 General Appearance: well appearing, in no acute distress, alert Lungs: Lungs clear to auscultation. No wheezing, rhonchi, rales Heart: RRR without murmur, gallop, or rubs. No ectopy ASSESSMENT/PLAN: 1. Essential hypertension - ICD9: 401.9, ICD10: I10 - good control - Continue current medication(s) - Continue home blood pressure monitoring, to bring results in on next visit - Recheck in 1 month as previously scheduled with PCP, sooner should new symptoms or problems arise. Soheila Juares CNP Prescription instructions reviewed with patient as applicable. Potential red flag symptoms discussed with the patient. Reviewed appropriate action plan to take if red flag symptoms occur. Patient agreeable to treatment plan. CNOV Observed: 10/02/2017 Status: COMPLETED Source: [place] 8:40 AM [facility] REPOSITORY Office Visit (INTMWS) COLINDRESSUSANNE ALEXIS ([id number]) 1950 F Date Time Provider Department 10/02/17 8:40 AM SOHEILA JUARES (KENDRA) INTMWS During your visit today, we recorded the following information about you: Temperature Pulse Respiration Blood pressure 96.9 degrees 82/minute 14/minute 120/80 Weight 61.2 kg Soheila Juares CNP 10/02/2017 9:48 AM Signed CC Patient presents with: 2 week BP follow up HPI Susanne Colindres is a 66 year old female who presents to the office in regards to elevated blood pressure follow-up. Patient's BP has been consistently high, asymptomatic except for mild headache. Last BP recheck two weeks ago, remained high at 180/90. Patient had appointment with travel services professional the next day who has been managing her BP so no changes made at that appointment. Today BP is much improved, 120/80. [employer]spring Truing Inspector increased Lasix to 40 mg in AM and 20 mg in the evening. Started on Cardizem ER 180 mg daily. BP and swelling have both improved per patient. Denies headache, chest pain, palpitations, dyspnea and fatigue. Patient denies any side effects of her medication(s) and is compliant with their regimen. Last 4 Encounter BP Readings: Date: BP: 10/02/2017 120/80 09/18/2017 180/90 09/04/2017 186/90 08/13/2017 147/80[BP Jake average[ Last 3 Encounter Wt Readings: Date: Wt: 10/02/2017 61.2 kg (135 lb) 09/18/2017 65.8 kg (145 lb) 09/04/2017 73 kg (161 lb) REVIEW OF SYSTEMS See HPI PAST MEDICAL HISTORY Diagnosis Date - Circumscribed scleroderma - Dysthymic disorder Depression (non-psychotic) - Female stress incontinence - PMH - PAST MEDICAL HISTORY OF knee and sciatic nerve - Postmenopausal atrophic vaginitis - Rheumatic heart disease, unspecified Rheumatic fever Murmur and treated with PCN for 18 years - Symptomatic menopausal or female climacteric states - Unspecified hypothyroidism Hypothyroidism - Urgency of urination PAST SURGICAL HISTORY Procedure Laterality Date - COLONOSCOP W/ OR W/O [facility] 11/02/2013 Colonoscopy - DANDamp;C, DIAG AND/OR THERAPEUTIC prior to 1994 Dilation ANDamp; curettage/polypectomy - LIGATE FALLOPIAN TUBE 1979 Tubal ligation - TOTAL HIP REPLACEMENT 10/16/2011 Hip replacement, total right - [facility] Dr. Schofield - ALLERGIES Lisinopril; Penicillins MEDICATIONS diltiazem CD (CARDIZEM CD) 180 mg 24 hr capsule Take 1 capsule by mouth once daily. levothyroxine (LEVOXYL) 175 mcg tablet Take 1 tablet by mouth once daily. Take on empty stomach. For thyroid. losartan (COZAAR) 50 mg tablet Take 1 tablet by mouth twice daily. spironolactone (ALDACTONE) 50 mg tablet Take 1 tablet by mouth once daily. COMPOUNDED PRESCRIPTION Consult endo: Dr. Jorge Esteves.Re: hypothyroidism acquired Hyponatremia atenolol (TENORMIN) 50 mg tablet Take 0.5 tablets by mouth once daily. atorvastatin (LIPITOR) 80 mg tablet Take 0.5 tablets by mouth once daily. FLUoxetine (PROZAC) 20 mg capsule Take 1 capsule by mouth once daily. buPROPion SR (ZYBAN SR; WELLBUTRIN SR) 150 mg 12 hr tablet Take 1 tablet by mouth twice daily. Omeprazole (PRILOSEC) 40 mg capsule Take 1 capsule by mouth once daily. CALCIUM CARBONATE/VITAMIN D3 (CALCIUM + VITAMIN D ORAL) Take by mouth twice daily. furosemide (LASIX) 40 mg tablet Take 1 tablet by mouth twice daily. FAMILY HISTORY Problem Relation Age of Onset - Thyroid Father - Heart Father Bypass - Thyroid Mother - Thyroid Sister - Thyroid Sister - Breast Cancer Maternal Aunt - Breast Cancer Maternal Aunt Social History Substance Use Topics - Smoking status: Never Smoker - Smokeless tobacco: Never Used - Alcohol use No PHYSICAL EXAM BP 120/80 Pulse 82 Temp 36.1 ?C (96.9 ?F) (Temporal Artery) Resp 14 Wt 61.2 kg (135 lb) LMP 02/25/2008 SpO2 98% BMI 25.51 kg/m2 General Appearance: well appearing, in no acute distress, alert Lungs: Lungs clear to auscultation. No wheezing, rhonchi, rales Heart: RRR without murmur, gallop, or rubs. No ectopy ASSESSMENT/PLAN: 1. Essential hypertension - ICD9: 401.9, ICD10: I10 - good control - Continue current medication(s) - Continue home blood pressure monitoring, to bring results in on next visit - Recheck in 1 month as previously scheduled with PCP, sooner should new symptoms or problems arise. Soheila Juares CNP Prescription instructions reviewed with patient as applicable. Potential red flag symptoms discussed with the patient. Reviewed appropriate action plan to take if red flag symptoms occur. Patient agreeable to treatment plan. Referring Provider: SOHEILA JUARES (KENDRA) [[id number]] Allergies As of Date: 10/02/2017 Noted Allergy Reaction LISINOPRIL 03/03/2009 3 - Cough PENICILLINS 01/31/2006 Comments: yeast infection Date Reviewed: 10/02/2017 Reviewed by: Zabrina Chen [employer] Consultant - Fully Assessed Reason for Visit: 2 week BP follow up [Other] Primary Visit Diagnosis:Essential hypertension [I10] Prescriptions as of 10/02/2017 Sig: DILTIAZEM SR 180 MG 24 HR CAP Take 1 capsule by mouth once * LEVOTHYROXINE 175 MCG TABLET Take 1 tablet by mouth once d* LOSARTAN 50 MG TABLET Take 1 tablet by mouth twice * SPIRONOLACTONE 50 MG TABLET Take 1 tablet by mouth once d* COMPOUNDED PRESCRIPTION Consult endo: Dr. Jorge Maher* ATENOLOL 50 MG TABLET Take 0.5 tablets by mouth onc* ATORVASTATIN 80 MG TABLET Take 0.5 tablets by mouth onc* FLUOXETINE 20 MG CAPSULE Take 1 capsule by mouth once * BUPROPION HCL SR 150 MG TABLE* Take 1 tablet by mouth twice * OMEPRAZOLE 40 MG CAPSULE,QASIM* Take 1 capsule by mouth once * * CALCIUM + VITAMIN D ORAL Take by mouth twice daily. FUROSEMIDE 40 MG TABLET Take 1 tablet by mouth twice * Problem List As Of Date 10/02/2017 Noted Resolved OSTEOCHONDROPATHY NOS [M93.90] INVALID FOR* ILEALTIBIAL BAND FRICTION SYND [M62.9] INVALID FOR* SCREENING MAL NEOP-CERVIX [Z12.4] INVALID FOR* SYMPTOMATIC FEMALE CLIMACTERIC STATE [N95.1] INVALID FOR* STRICTURE OF CERVIX [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 Major depressive disorder in partial remission *INVALID FOR* Hypertension [I10] INVALID FOR* More... Hypothyroid [E03.9] INVALID FOR* More... Lichen sclerosus [L90.0] INVALID FOR* MDD (major depressive disorder) (HCC) [F32.9] INVALID FOR* Depression with anxiety [F41.8] INVALID FOR* More... Moderate mitral regurgitation [I34.0] INVALID FOR* Pulmonary hypertension, secondary (HCC) [[id number]*INVALID FOR* Proteinuria [R80.9] INVALID FOR* Stage 3 chronic kidney disease [N18.3] INVALID FOR* More... Dependent edema [R60.9] INVALID FOR* Nephrotic syndrome [N04.9] INVALID FOR* More... Encounter Status:Closed by SOHEILA JUARES CNP on 10/02/17 IRON AND TIBC Collected: 10/01/2017 Status: F Source: [place] 11:11 AM [facility] REPOSITORY TYPE CODE TESTS RESULT OUT OF REFERENCE UNITS RANGE LAB IRN 41-186 ug/dL Iron 55 LAB TIBC 232-386 ug/dL Low TIBC 231 LAB SAT 15-57 % Transferrin Saturatn 24 Performed By: #### IRON, BMP, MG1, FERR, FREET3, FT4 #### [facility] [address] [place] [id number] BASIC METABOLIC PANL Collected: 10/01/2017 Status: F Source: [place] 11:11 AM [facility] REPOSITORY TYPE CODE TESTS RESULT OUT OF REFERENCE UNITS RANGE LAB GLU 74-99 mg/dL Glucose 92 Result Comment: The [place] Diabetes Association (ADA) provides guidance for cutoff values for fasting glucose and random glucose. The ADA defines fasting as no caloric intake for at least 8 hours. Fas ting plasma glucose results between 100 to 125 mg/dL indicate increased risk for diabetes (prediabetes). Fasting plasma glucose results greater than or equal to 126 mg/dL meet the criteria for diagnosis of diabetes. In the absence of unequivocal hyperglycemia, results should be confirmed by repeat testing. In a patient with classic symptoms of hyperglycemia or hyperglycemic crisis, random plasma glucose results greater than or equal to 200 mg/dL meet the criteria for diagnosis of diabetes. Reference: Standards of Medical Care in Diabetes 2016, English Diabetes Association. Diabetes Care. 2016.39(Suppl 1). LAB BUN 7-21 mg/dL BUN High 28 LAB CRET 0.58-0.96 mg/dL Creatinine High 1.30 LAB NA 136-144 mmol/L Low Sodium 129 LAB K 3.7-5.1 mmol/L Potassium High 5.3 LAB CL 97-105 mmol/L Low Chloride 93 LAB CO2 22-30 mmol/L CO2 26 LAB AGAP 9-18 mmol/L Anion Gap 10 LAB CA 8.5-10.2 mg/dL Calcium, Total 9.0 LAB GFRAA eGFR- Amer. 50 LAB GFRNAA . eGFR-All Other Races 41 Result Comment: eGFR (Estimated GFR) Units of measure: mL/min/1.73 meters squared eGFR is derived from the reexpressed MDRD Study equation using the following parameters: serum creatinine, age, gender and race. The creatinine assay has been calibrated to be traceable to IDMS. An eGFR <60 mL/min/1.73m2 for >3 months is consistent with chronic kidney disease. Refer to KDOQI guidelines for clinical interpretation. In patients with unstable renal function, e.g. those with acute kidney injury, the eGFR may not accurately reflect actual GFR. Performed By: #### IRON, BMP, MG1, FERR, FREET3, FT4 #### [place] [phone] MAGNESIUM Collected: 10/01/2017 Status: F Source: [place] 11:11 AM [facility] REPOSITORY TYPE CODE TESTS RESULT OUT OF REFERENCE UNITS RANGE LAB MG 1.7-2.3 mg/dL Magnesium 1.8 Performed By: #### IRON, BMP, MG1, FERR, FREET3, FT4 #### [place] [phone] FERRITIN Collected: 10/01/2017 Status: F Source: [place] 11:11 AM [facility] REPOSITORY TYPE CODE TESTS RESULT OUT OF REFERENCE UNITS RANGE LAB FERR 14.7-205.1 ng/mL Ferritin 177.4 Performed By: #### IRON, BMP, MG1, FERR, FREET3, FT4 #### [place] [phone] FREE T3 Collected: 10/01/2017 Status: F Source: [place] 11:11 AM [facility] REPOSITORY TYPE CODE TESTS RESULT OUT OF RANGE REFERENCE UNITS LAB FREET3 2.3-4.1 pg/mL Low Free T3 2.2 Performed By: #### IRON, BMP, MG1, FERR, FREET3, FT4 #### [place] [phone] FREE T4 Collected: 10/01/2017 Status: F Source: [place] 11:11 AM [facility] REPOSITORY TYPE CODE TESTS RESULT OUT OF RANGE REFERENCE UNITS LAB FT4 0.9-1.7 ng/dL High Free T4 2.0 Performed By: #### IRON, BMP, MG1, FERR, FREET3, FT4 #### [place] [phone] TSH Collected: 10/01/2017 Status: F Source: [place] 11:11 AM [facility] REPOSITORY TYPE CODE TESTS RESULT OUT OF RANGE REFERENCE UNITS LAB TSH 0.400-5.500 uU/mL High TSH 5.760 Performed By: #### TSH #### [facility] [address] [place] [address] ALLERGIES ALLERGIES DATE TYPE / CODE NAME / CODE REACTION SEVERITY SOURCE 08/01/2018 Drug Penicillins/[id number] Unknown Unknown [place] Allergy/416 0476(RXNORM) [facility] 019175([facility] ED CT) Repository 08/01/2018 Drug lisinopril/[id number] cough [place] Allergy/416 658(RXNORM) [facility] 780954([facility] ED CT) Repository 03/03/[address] [facility] INGREDI/[address] [place] 805421(SNOM Repository ED CT) 01/31/[address] [facility] Class/89139 [address] [place] 1003(SNOMED Repository CT) ENCOUNTERS ENCOUNTERS ADMIT/DISCHARGE ACCOUNT ADMITTING ENCOUNTER LOCATION SOURCE NUMBER CLASS 09/16/2018/09/16/20 [id number] Ambulatory BMSBuilding:[place] [address] [facility] Repository 09/15/2018/09/15/20 [id number] Ambulatory [address] Repository 09/15/2018/09/16/20 [id number] Ambulatory [address] Repository 09/09/2018 [id number] Ambulatory BMSBuilding:[place].[facility] Repository 09/09/2018 [id number] Ambulatory BMSBuilding:[place].[facility] Repository 09/09/2018/09/09/20 [id number] Ambulatory [address] ing:CLSP Repository 08/26/2018/08/26/20 [id number] Ambulatory BMSBuilding:B [place] 18 [facility] Repository 08/20/2018 [id number] Ambulatory [facility] ing:LAB.FUTUR Repository E 08/01/2018 [id number] Ambulatory [facility] ing:LAB Repository 08/01/2018/08/01/20 [id number] Ambulatory BMSBuilding:B [place] 18 [facility] Repository 07/17/2018/07/19/20 [id number] Jopperi, Fermin Inpatient [place] 18 [facility] ing:PCURoom: Repository [id number]: 1 07/17/2018 [id number] Fermin Harrell Ambulatory BMSBuilding:[place] MS.CF.[facility] Repository 07/17/2018 [id number] Fermin Harrell Ambulatory BMSBuilding:[place].[facility] Repository 07/17/2018 [id number] Fermin Harrell Ambulatory BMSBuilding:[place] [facility] Repository 07/17/2018 [id number] Fermin Harrell Ambulatory BMSBuilding:[place].CF.[facility] Repository 07/17/2018 [id number] Fermin Harrell Ambulatory BMSBuilding:[place] [facility] Repository 07/17/2018/07/19/20 [id number] Ambulatory BMSBuilding:W [place] 18 [facility] Repository 07/17/2018 [id number] Ambulatory BMSBuilding:[place] [facility] Repository 07/17/2018/07/17/20 [id number] Ambulatory BMSBuilding:B [place] 18 [facility] Repository 07/17/2018 [id number] Ambulatory [facility] ing:LAB Repository 06/09/2018 [id number] Ambulatory [facility] ing:LAB Repository 05/09/2018 [id number] Ambulatory [facility] ing:LAB.FUTUR Repository E 05/08/2018 [id number] Ambulatory [facility] ing:LAB Repository 04/24/2018/04/24/20 [id number] Ambulatory BMSBuilding:[place] [address] [facility] Repository 03/28/2018/03/28/20 [id number] Ambulatory [address] Repository 03/28/2018/03/31/20 [id number] Ambulatory [address] Repository 03/07/2018 [id number] Ambulatory [facility] ing:LAB Repository 02/21/2018 [id number] [facility] Repository 02/12/2018 [id number] Ambulatory [facility] ing:MEDOUTP Repository 02/11/2018 [id number] Ambulatory [facility] ing:MEDOUTP Repository 02/10/2018 [id number] Ambulatory [facility] ing:MEDOUTP Repository 01/15/2018 [id number] Ambulatory [facility] ing:LAB.FUTUR Repository E 11/15/2017 [id number] Ambulatory [facility] ing:LAB Repository 11/07/2017 [id number] Ambulatory [facility] ing:CVS Repository 11/07/2017 [id number] Ambulatory BMSBuilding:W [facility] Repository 10/29/2017/10/29/19 [id number] Ambulatory [address] Repository 10/28/2017/10/28/19 [id number] Ambulatory [address] Repository 10/17/2017/10/17/19 [id number] Ambulatory BMSBuilding:B [place] 18 [facility] Repository 10/16/2017 [id number] Ambulatory BMSBuilding:B [place] MS.[facility] Repository 10/11/2017/10/16/19 [id number] Ambulatory [address] Repository 10/02/2017/10/02/20 [id number] Ambulatory [address] Repository 10/01/2017/10/01/20 [id number] Ambulatory [address] Repository PAYERS PAYERS ENCOUNTER GUARANTOR PAYER SUBSCRIBER SOURCE 09/16/2018 SUSANNE S Primary SUSANNE S [place] [id number] Insurance:MEDICARE BOWENDOB: [facility] PART A [facility] [id number] Number: Repository [id number]: [phone] [id number] [phone] (HP) Date:2018-08-12 09/16/2018 Secondary SUSANNE S [place] Insurance:AETNA BOWENDOB: [facility] [id number] Hospital Number: Repository [id number] Date:[id number] SENIOR SUPPLEMENT [address] [address], [place] [address]DB: 09/16/2018 Tertiary NOT GIVENUNK [place] Insurance:SELF PAY [facility] Number: Effective Repository Date:2018-09-16 09/09/2018 SUSANNE S Primary SUSANNE S [place] [id number] Insurance:MEDICARE BOWENDOB: [facility] A [facility] [id number] Number: Repository [id number]: 330 [id number] [phone] () Date:2018-08-12 09/09/2018 Secondary SUSANNE S [place] Insurance:AETNA SR BOWENDOB: Community SUPPLEMENT [facility] [id number] Hospital Number: Repository [id number] Date:0186-31-99XJUSL SENIOR SUPPLEMENT [address] [address]XMZAQKHBW, [place] [address]RP: 09/09/2018 Tertiary NOT GIVENUNK [place] Insurance:SELF PAY [facility] Number: Effective Repository Date:2018-09-09 09/09/2018 SUSANNE S Primary SUSANNE S [place] [id number] Insurance:MEDICARE BOWENDOB: [facility] [id number] Number: Repository [id number]: 330 [id number] [phone] () Date:2018-08-12 09/09/2018 Secondary SUSANNE S [place] Insurance:AETNA SR BOWENDOB: Community SUPPLEMENT [facility] [id number] Hospital Number: Repository [id number] Date:5936-93-87ALTRJ SENIOR SUPPLEMENT [address] [address]ZEUJBHALJ, [place] [address]TY: 09/09/2018 Tertiary NOT GIVENUNK [place] Insurance:SELF PAY [facility] Number: Effective Repository Date:2018-09-09 09/09/2018 SUSANNE S Primary SUSANNE S [place] [id number] Insurance:MEDICARE BOWENDOB: [facility] [id number] Number: Repository 13259Pjm: 330 [id number] [phone] (HP) Date:2018-08-12 09/09/2018 Secondary SUSANNE S [place] Insurance:AETNA SR BOWENDOB: Community SUPPLEMENT [facility] [id number] Hospital Number: Repository [id number] Date:5414-40-59XBYQD SENIOR SUPPLEMENT [address] [place] [address]IV: 09/09/2018 Tertiary NOT GIVENUNK [place] Insurance:SELF PAY [facility] Number: Effective Repository Date:2018-08-12 08/26/2018 SUSANNE S Primary SUSANNE S [place] [id number] Insurance:MEDICARE BOWENDOB: [facility] [id number] [facility] [place] Number: Repository [address]24Eva: 330 [id number] [phone] (HP) Date:2018-08-25 08/26/2018 Secondary USSANNE S [place] Insurance:AETNA SR BOWENDOB: Community SUPPLEMENT [facility] [id number] Hospital Number: Repository [id number] Date:5551-48-54UMUFY SENIOR SUPPLEMENT [address] [place] [address]GO: 08/26/2018 Tertiary NOT GIVENUNK [place] Insurance:SELF PAY [facility] Number: Effective Repository Date:2018-08-26 08/20/2018 SUSANNE S Primary SUSANNE S [place] [id number] Insurance:MEDICARE BOWENDOB: [facility] [id number] [facility] [place] Number: Repository [address]Tbs: 330 [id number] [phone] (HP) Date:2018-08-08 08/20/2018 Secondary SUSANNE S [place] Insurance:AETNA SR BOWENDOB: Community SUPPLEMENT [facility] [id number] Hospital Number: Repository [id number] Date:3813-14-69FKDIY SENIOR SUPPLEMENT [address] [address]NNHGQRIOF, [place] [address]IX: 08/20/2018 Tertiary NOT GIVENUNK [place] Insurance:SELF PAY [facility] Number: Effective Repository Date:2018-08-08 08/01/2018 SUSANNE S Primary SUSANNE S [place] [id number] Insurance:MEDICARE BOWENDOB: [facility] [id number][place] Number: Repository [address]Swc: 330 [id number] [phone] () Date:2018-08-01 08/01/2018 Secondary SUSANNE S [place] Insurance:AETNA SR BOWENDOB: Community SUPPLEMENT [facility] [id number] Hospital Number: Repository [id number] Date:3707-61-96NJXBI SENIOR SUPPLEMENT [address] [address]SNGAXAZHI, [place] [address]JF: 08/01/2018 Tertiary NOT GIVENUNK [place] Insurance:SELF PAY [facility] Number: Effective Repository Date:2018-08-01 08/01/2018 SUSANNE S Primary SUSANNE S [place] [id number] Insurance:MEDICARE BOWENDOB: [facility] [id number][place] Number: Repository 9[address]Tcj: 330 [id number] [phone] () Date:2018-07-30 08/01/2018 Secondary SUSANNE S [place] Insurance:AETNA SR BOWENDOB: Community SUPPLEMENT [facility] [id number] Hospital Number: Repository [id number] Date:9660-63-60QKMBA SENIOR SUPPLEMENT [address] [address]FVXCBGBKN, [place] [address]JE: 08/01/2018 Tertiary NOT GIVENUNK [place] Insurance:SELF PAY [facility] Number: Effective Repository Date:2018-08-01 07/17/2018 SUSANNE S Primary SUSANNE S [place] [id number] Insurance:MEDICARE BOWENDOB: [facility] [id number] Number: Repository 05786Lkt: 330 [id number] [phone] (HP) Date:2018-07-17 07/17/2018 Secondary SUSANNE S [place] Insurance:AETNA SR BOWENDOB: Community SUPPLEMENT [facility] [id number] Hospital Number: Repository [id number] Date:9017-78-04QWWDS SENIOR SUPPLEMENT [address]KONSA[address] [place] [address]LR: 07/17/2018 Tertiary NOT GIVENUNK [place] Insurance:SELF PAY [facility] Number: Effective Repository Date:2018-07-17 07/17/2018 SUSANNE S Primary SUSANNE S [place] [id number] Insurance:MEDICARE BOWENDOB: [facility] [id number][place] Number: Repository 61415Ghc: 330 [id number] [phone] (HP) Date:2018-07-17 07/17/2018 Secondary SUSANNE S [place] Insurance:AETNA SR BOWENDOB: Community SUPPLEMENT [facility] [id number] Hospital Number: Repository [id number] Date:8262-86-72ZQONV SENIOR SUPPLEMENT [address] [place] [address]PJ: 07/17/2018 Tertiary NOT GIVENUNK [place] Insurance:SELF PAY [facility] Number: Effective Repository Date:2018-07-17 07/17/2018 SUSANNE S Primary SUSANNE S [place] [id number] Insurance:MEDICARE BOWENDOB: [facility] [id number][place] Number: Repository 27384Lpa: 330 [id number] [phone] (HP) Date:2018-07-17 07/17/2018 Secondary SUSANNE S [place] Insurance:AETNA SR BOWENDOB: Community SUPPLEMENT [facility] [id number] Hospital Number: Repository [id number] Date:4620-63-17QSALN SENIOR SUPPLEMENT [address]STY[address]SA[address] [place] [address]KU: 07/17/2018 Tertiary NOT GIVENUNK [place] Insurance:SELF PAY Community [facility] Number: Effective Repository Date:2018-07-17 07/17/2018 SUSANNE S Primary SUSANNE S [place] [id number] Insurance:MEDICARE BOWENDOB: [facility] [id number] Number: Repository 78[address]Hpq: 330 [id number] [phone] (HP) Date:2018-07-17 07/17/2018 Secondary SUSANNE S [place] Insurance:AETNA SR BOWENDOB: Community SUPPLEMENT [facility] [id number] Hospital Number: Repository [id number] Date:1138-98-63ELSYP SENIOR SUPPLEMENT [address]PJRBPQIPW[address] [place] [address]BB: 07/17/2018 Tertiary NOT GIVENUNK [place] Insurance:SELF PAY [facility] Number: Effective Repository Date:2018-07-17 07/17/2018 SUSANNE S Primary SUSANNE S [place] [id number] Insurance:MEDICARE BOWENDOB: [facility] [id number] [place] Number: Repository 197[address]Wgb: 330 [id number] [phone] () Date:2018-07-17 07/17/2018 Secondary SUSANNE S [place] Insurance:AETNA SR BOWENDOB: Community SUPPLEMENT [facility] [id number] Hospital Number: Repository [id number] Date:7017-21-30OVCQX SENIOR SUPPLEMENT [address]NYIKJMWCF[address] [place] [address]WT: 07/17/2018 Tertiary NOT GIVENUNK [place] Insurance:SELF PAY Community [facility] Number: Effective Repository Date:2018-07-17 07/17/2018 SUSANNE S Primary SUSANNE S [place] [id number] Insurance:MEDICARE BOWENDOB: [facility] [id number] [facility] [place] Number: Repository [address]Xif: 330 [id number] [phone] () Date:2018-07-17 07/17/2018 Secondary SUSANNE S [place] Insurance:AETNA SR BOWENDOB: [facility] [id number] Hospital Number: Repository [id number] Date:1885-12-80ZZBCC SENIOR SUPPLEMENT [address]SRZACTHFN[address] [place] [address]VA: 07/17/2018 Tertiary NOT GIVENUNK [place] Insurance:SELF PAY [facility] Number: Effective Repository Date:2018-07-17 07/17/2018 SUSANNE S Primary SUSANNE S [place] [id number] Insurance:MEDICARE BOWENDOB: [facility] [id number] Number: Repository 10343Yer: 330 [id number] [phone] () Date:2018-07-17 07/17/2018 Secondary SUSANNE S [place] Insurance:AETNA SR BOWENDOB: Community SUPPLEMENT [facility] [id number] Hospital Number: Repository [id number] Date:1262-39-70OAGHS SENIOR SUPPLEMENT [address]OXFEGXCTJ, [place] [address]MV: 07/17/2018 Tertiary NOT GIVENUNK [place] Insurance:SELF PAY [facility] Number: Effective Repository Date:2018-07-17 07/17/2018 SUSANNE S Primary SUSANNE S [place] [id number] Insurance:MEDICARE BOWENDOB: [facility] [id number] Number: Repository 6[address]Xcp: 330 [id number] [phone] () Date:2018-07-17 07/17/2018 Secondary SUSANNE S [place] Insurance:AETNA SR BOWENDOB: Community SUPPLEMENT [facility] [id number] Hospital Number: Repository [id number] Date:8116-62-89OCUPD SENIOR SUPPLEMENT [address] [address]HOEUIRNAN, [place] [address]DT: 07/17/2018 Tertiary NOT GIVENUNK [place] Insurance:SELF PAY [facility] Number: Effective Repository Date:2018-07-17 07/17/2018 SUSANNE S Primary SUSANNE S [place] [id number] Insurance:MEDICARE BOWENDOB: [facility] [id number] [facility] [place] Number: Repository 13434Bse: 330 [id number] [phone] (HP) Date:2018-07-17 07/17/2018 Secondary SUSANNE S [place] Insurance:AETNA SR BOWENDOB: Community SUPPLEMENT [facility] [id number] Hospital Number: Repository [id number] Date:2485-44-73LGPXO SENIOR SUPPLEMENT [address] [place] [address]KH: 07/17/2018 Tertiary NOT GIVENUNK [place] Insurance:SELF PAY [facility] Number: Effective Repository Date:2018-07-17 07/17/2018 SUSANNE S Primary SUSANNE S [place] [id number] Insurance:MEDICARE BOWENDOB: [facility] [id number] [facility] Number: Repository 39406Xuf: 330 [id number] [phone] (HP) Date:2018-07-17 07/17/2018 Secondary SUSANNE S [place] Insurance:AETNA SR BOWENDOB: Community SUPPLEMENT [facility] [id number] Hospital Number: Repository [id number] Date:1565-24-42ILZBS SENIOR SUPPLEMENT [address]QPTKTZY[address] [place] [address]IC: 07/17/2018 Tertiary NOT GIVENUNK [place] Insurance:SELF PAY [facility] Number: Effective Repository Date:2018-07-17 06/09/2018 SUSANNE S Primary SUSANNE S [place] [id number] Insurance:MEDICARE BOWENDOB: [facility] [id number] [facility] [place] Number: Repository 40994Zgi: 330 [id number] [phone] (HP) Date:2018-06-09 06/09/2018 Secondary SUSANNE S [place] Insurance:AETNA SR BOWENDOB: Community SUPPLEMENT [facility] [id number] Hospital Number: Repository [id number] Date:3303-71-03YCUQR SENIOR SUPPLEMENT [address] [address]CMMUPCJRQ, [place] [address]JK: 06/09/2018 Tertiary NOT GIVENUNK [place] Insurance:SELF PAY [facility] Number: Effective Repository Date:2018-06-09 05/09/2018 SUSANNE S Primary SUSANNE S [place] [id number] Insurance:MEDICARE BOWENDOB: [facility] [id number] [facility] [place] Number: Repository 548[address]Djg: 330 [id number] [phone] (HP) Date:2018-05-09 05/09/2018 Secondary SUSANNE S [place] Insurance:AETNA SR BOWENDOB: Community SUPPLEMENT [facility] [id number] Hospital Number: Repository [id number] Date:5655-70-13NEFHV SENIOR SUPPLEMENT [address] [address]GQASUJHXV, [place] [address]XI: 05/09/2018 Tertiary NOT GIVENUNK [place] Insurance:SELF PAY [facility] Number: Effective Repository Date:2018-05-09 05/08/2018 SUSANNE S Primary SUSANNE S [place] [id number] Insurance:MEDICARE BOWENDOB: [facility] [id number][place] Number: Repository 7[address]26Yzd: 330 [id number] [phone] (HP) Date:2018-05-08 05/08/2018 Secondary SUSANNE S [place] Insurance:AETNA SR BOWENDOB: Community SUPPLEMENT [facility] [id number] Hospital Number: Repository [id number] Date:0092-46-63NABJU SENIOR SUPPLEMENT [address] [place] [address]AN: 05/08/2018 Tertiary NOT GIVENUNK [place] Insurance:SELF PAY [facility] Number: Effective Repository Date:2018-05-08 04/24/2018 SUSANNE S Primary SUSANNE S [place] [id number] Insurance:MEDICARE BOWENDOB: [facility] [id number] [facility] [place] Number: Repository [id number]: 330 [id number] [phone] (HP) Date:2017-10-17 04/24/2018 Secondary SUSANNE S [place] Insurance:AETNA SR BOWENDOB: Community SUPPLEMENT [facility] [id number] Hospital Number: Repository [id number] Date:7220-40-09XWEXB SENIOR SUPPLEMENT [address]RQSWOOGQZ[address] [place] [address]PH: 04/24/2018 Tertiary NOT GIVENUNK [place] Insurance:SELF PAY [facility] Number: Effective Repository Date:2018-04-24 03/07/2018 SUSANNE S Primary SUSANNE S [place] [id number] Insurance:MEDICARE BOWENDOB: [facility] [id number] Cross [facility] Number: Repository 79796Kqa: 330 [id number] [phone] (HP) Date:2018-03-07 03/07/2018 Secondary SUSANNE S [place] Insurance:AETNA SR BOWENDOB: Community SUPPLEMENT [facility] [id number] Hospital Number: Repository [id number] Date:0864-59-44AWFGC SENIOR SUPPLEMENT [address] [address]CVIEIQVNY, [place] [address]KJ: 03/07/2018 Tertiary NOT GIVENUNK [place] Insurance:SELF PAY [facility] Number: Effective Repository Date:2018-03-07 02/21/2018 SUSANNE S Primary SUSANNE S [place] [id number] Insurance:MEDICARE BOWENDOB: [facility] [id number] [facility]view [facility] [place] Number: Repository 92535Hbh: 330 [id number] [phone] (HP) Date:2018-02-21 02/21/2018 Secondary SUSANNE S [place] Insurance:AETNA SR BOWENDOB: Community SUPPLEMENT [facility] [id number] Hospital Number: Repository [id number] Date:5879-40-82WRGAE SENIOR SUPPLEMENT [address]JNSJQ[address] [place] [address]TC: 02/21/2018 Tertiary NOT GIVENUNK [place] Insurance:SELF PAY [facility] Number: Effective Repository Date:2018-02-21 02/12/2018 SUSANNE S Primary SUSANNE S [place] [id number] Insurance:MEDICARE BOWENDOB: [facility] [id number] Number: Repository [id number]: 330 [id number] [phone] (HP) Date:2018-01-24 02/12/2018 Secondary SSUANNE S [place] Insurance:AETNA SR BOWENDOB: Community SUPPLEMENT [facility] [id number] Hospital Number: Repository [id number] Date:1915-26-10IYMGT SENIOR SUPPLEMENT [address] [place] [address]TR: 02/12/2018 Tertiary NOT GIVENUNK [place] Insurance:SELF PAY [facility] Number: Effective Repository Date:2018-01-24 02/11/2018 SUSANNE S Primary SUSANNE S [place] [id number] Insurance:MEDICARE BOWENDOB: [facility] [id number][place] Number: Repository 67522Oex: 330 [id number] [phone] () Date:2018-01-24 02/11/2018 Secondary SUSANNE S [place] Insurance:AETNA SR BOWENDOB: Community SUPPLEMENT [facility] [id number] Hospital Number: Repository [id number] Date:2040-97-37WGMDE SENIOR SUPPLEMENT [address] [place] [address]XR: 02/11/2018 Tertiary NOT GIVENUNK [place] Insurance:SELF PAY [facility] Number: Effective Repository Date:2018-01-24 02/10/2018 SUSANNE S Primary SUSANNE S [place] [id number] Insurance:MEDICARE BOWENDOB: [facility] [id number] Number: Repository 29049Yyq: 330 [id number] [phone] (HP) Date:2018-01-24 02/10/2018 Secondary SUSANNE S [place] Insurance:AETNA SR BOWENDOB: Community SUPPLEMENT INSPolicy [id number] Hospital Number: Repository [id number] Date:9447-23-93GNMQZ SENIOR SUPPLEMENT [address] [address]BLEYDJDPZ, [place] [address]VH: 02/10/2018 Tertiary NOT GIVENUNK [place] Insurance:SELF PAY Community [facility] Number: Effective Repository Date:2018-01-24 01/15/2018 SUSANNE S Primary SUSANNE S [place] [id number] Insurance:MEDICARE BOWENDOB: [facility] [id number][place] Number: Repository [id number]: (853) [id number] [phone] () Date:2018-01-14 01/15/2018 Secondary SUSANNE S [place] Insurance:AETNA SR BOWENDOB: [facility] [id number] Hospital Number: Repository [id number] Date:3996-94-17XPJWS SENIOR SUPPLEMENT [address] [address]IEIJQTEMN, [place] [address]QM: 01/15/2018 Tertiary NOT GIVENUNK [place] Insurance:SELF PAY [facility] Number: Effective Repository Date:2018-01-14 11/15/2017 SUSANNE S Primary SUSANNE S [place] [id number] Insurance:MEDICARE BOWENDOB: [facility] [id number] Number: Repository [id number]: 330 [id number] [phone] (HP) Date:2017-11-15 11/15/2017 Secondary SUSANNE S [place] Insurance:AETNA SR BOWENDOB: [facility] [id number] Hospital Number: Repository [id number] Date:4554-39-35ONSXP SENIOR SUPPLEMENT [address] [address]BHGCISAWF, [place] [address]YT: 11/15/2017 Tertiary NOT GIVENUNK [place] Insurance:SELF PAY Community [facility] Number: Effective Repository Date:2017-11-15 11/07/2017 SUSANNE S Primary SUSANNE S [place] [id number] Insurance:MEDICARE BOWENDOB: [facility] [id number] [facility]view [facility] [place] Number: Repository 22678Aep: 330 [id number] [phone] (HP) Date:2017-10-17 11/07/2017 Secondary SUSANNE S [place] Insurance:AETNA SR BOWENDOB: Community SUPPLEMENT [facility] [id number] Hospital Number: Repository [id number] Date:2866-72-97WINEG SENIOR SUPPLEMENT [address] [place] [address]PQ: 11/07/2017 Tertiary NOT GIVENUNK [place] Insurance:SELF PAY [facility] Number: Effective Repository Date:2017-10-17 11/07/2017 SUSANNE S Primary SUSANNE S [place] [id number] Insurance:MEDICARE BOWENDOB: [facility] [id number] Cross [facility] Number: Repository [address]Vae: 330 [id number] [phone] (HP) Date:2017-10-17 11/07/2017 Secondary SUSANNE S [place] Insurance:AETNA SR BOWENDOB: Community SUPPLEMENT [facility] [id number] Hospital Number: Repository [id number] Date:1472-93-93SSYPF SENIOR SUPPLEMENT [address] [address]SWDWQOKDG, [place] [address]DG: 11/07/2017 Tertiary NOT GIVENUNK [place] Insurance:SELF PAY [facility] Number: Effective Repository Date:2017-11-07 10/17/2017 SUSANNE S Primary SUSANNE S [place] [id number] Insurance:MEDICARE BOWENDOB: [facility] [id number] [facility] [place] Number: Repository 50858Rdd: 330 [id number] [phone] (HP) Date:2017-09-21 10/17/2017 Secondary SUSANNE S [place] Insurance:AETNA SR BOWENDOB: Community SUPPLEMENT [facility] [id number] Hospital Number: Repository [id number] Date:9221-45-02QKJJK SENIOR SUPPLEMENT [address] [address]KUVXEKXOL, [place] [address]QO: 10/17/2017 Tertiary NOT GIVENUNK [place] Insurance:SELF PAY [facility] Number: Effective Repository Date:2017-09-21 10/16/2017 Susanne S Primary Susanne S [place] [id number] Insurance:MEDICARE BowenDOB: [facility] A [facility] [id number] Number[place] Repository [id number]: (026) [id number] [phone] () Date:2017-10-16 10/16/2017 Secondary Susanne S [place] Insurance:AETNA [place]OB: [id number] Number: Repository [id number] Date:[id number] SENIOR SUPPLEMENT [address] [address], [place] [address]KM: 10/16/2017 Tertiary NOT GIVENUNK [place] Insurance:SELF PAY [facility] Number: Effective Repository Date:2017-10-16
== END 2018-09-09 14:05 | disposition home or self-care (01) ==
LOC: CLSP 10:49
PROVIDERS: Family Provider Internal Medicine; PCP Internal Medicine; Referring Provider Internal Medicine Cardiovascular Disease; Visit Provider Internal Medicine Cardiovascular Disease
DX: I48.1 Persistent atrial fibrillation (principal); E78.00 Pure hypercholesterolemia, unspecified; F32.9 Major depressive disorder, single episode, unspecified; E03.9 Hypothyroidism, unspecified; I34.0 Nonrheumatic mitral (valve) insufficiency; I12.9 Hypertensive chronic kidney disease with stage 1 through stage 4 chronic kidney disease, or unspecified chronic kidney disease; N18.9 Chronic kidney disease, unspecified; Z98.51 Tubal ligation status; Z88.0 Allergy status to penicillin
CPT/HCPCS: 92960; 93005; J7040

== ENCOUNTER → 2018-11-05 14:53 | Outpatient (CLI) | payer MEDICARE, OTHER, SELFPAY ==
[2018-10-28 09:43] VITALS: BMI 31.0
[2018-11-05 15:57] LABS: Albumin, Serum 3.4 g/dL (3.2-5.0); BUN 23 mg/dL (7-18); BUN/Creat Ratio 19.3 RATIO (10-20); Calcium,Total 9.1 mg/dL (8.5-10.1); Chloride 106 mmol/L (98-107); Creatinine, Serum 1.19 mg/dL (0.55-1.02); EST Glomerular Filtration Rate 48 mL/min (>60); Est Glom Filt Rate - Afr Amer 58 mL/min (>60); Glucose 90 mg/dL (74-106); Potassium 4.1 mmol/L (3.5-5.1); Sodium Level 142 mmol/L (136-145)
[2018-11-05 16:44] LABS: Protein, Urine (Random) 51.4 mg/dL (<11.9); Protein:Creat Ratio 370 mg/g CRE (0-200)
[2018-11-05 17:21] LABS: Color, Urine Yellow (Yellow); Glucose, Dipstick Normal (Normal); Ketone-Dipstick Negative (Negative); Leukocyte Esterase-Dipstick Negative /ul (Negative); Nitrite-Dipstick Negative (Negative); Occult Blood-Urine 50 /ul (Negative); Protein-Dipstick 100 mg/dl (Negative); Urine Bilirubin Dipstick Negative (Negative); Urine Clarity Clear (Clear); Urine Urobilinogen Normal (Normal)
--- OUTSIDE RECORDS SUMMARY | 2019-01-07 17:31 | XMS RPT_ITS ---
:1950 Author Organization OHIP Support Name Relationship Address Phone R Unavailable Unavailable Unavailable NIETO, JENNIFIER Unavailable [address] + [place] [address] R Unavailable Unavailable Unavailable NIETO, JENNIFIER Unavailable [address] + [place] [address] R Unavailable Unavailable Unavailable NIETO, JENNIFIER Unavailable [address] + [place] [address] R Unavailable Unavailable Unavailable NIETO, JENNIFIER Unavailable [address] + [place] [address] R Unavailable Unavailable Unavailable NIETO, JENNIFIER Unavailable [address] + [place] [address] R Unavailable Unavailable Unavailable NIETO, JENNIFIER Unavailable [address] + [place] [address] [facility] Unavailable [address] + [place] [address] NIETO, JENNIFIER Unavailable [address] + [place] [address] [facility] Unavailable [address] + [place] [address] NIETO, JENNIFIER Unavailable [address] + [place] [address] [facility] Unavailable [address] + [place] [address] NIETO, JENNIFIER Unavailable [address] + [place] [address] [facility] Unavailable [address] + [place] [address] NIETO, JENNIFIER Unavailable [address] + [place] [address] [facility] Unavailable [address] + [place] [address] GERSON JENNIFIER Unavailable [address] + [place] [address] [facility] Unavailable [address] + [place] [address] GERSON JENNIFIER Unavailable [address] + [place] [address] [facility] Unavailable [address] + [place] [address] GERSON JENNIFIER Unavailable [address] + [place] [address] [facility] Unavailable [address] + [place] [address] GERSON JENNIFIER Unavailable [address] + [place] [address] [facility] Unavailable [address] + [place] [address] GERSON JENNIFIER Unavailable [address] + [place] [address] [facility] Unavailable [address] + [place] [address] GERSON JENNIFIER Unavailable [address] + [place] [address] [facility] Unavailable [address] + [place] [address] GERSON JENNIFIER Unavailable [address] + [place] [address] [facility] Unavailable [address] + [place] [address] GERSON JENNIFIER Unavailable [address] + [place] [address] [facility] Unavailable [address] + [place] [address] GERSON JENNIFIER Unavailable [address] + [place] [address] [facility] Unavailable [address] + [place] [address] GERSON JENNIFIER Unavailable [address] + [place] [address] [facility] Unavailable [address] + [place] [address] CODY NIETONIFIER Unavailable [address] + [place] [address] [facility] Unavailable [address] + [place] [address] GERSON JENNIFIER Un[address] + [place] [address] [facility] Unavailable [address] + [place] [address] GERSON JENNIFIER Un[address] + [place] [address] [facility] Unavailable [address] + [place] [address] GERSON JENNIFIER Unavailable [address] + [place] [address] [facility] Unavailable [address] + [place] [address] GERSON JENNIFIER Unavailable [address] + [place] [address] [facility] Unavailable [address] + [place] [address] GERSON JENNIFIER Unavailable [address] + [place] [address] [facility] Unavailable [address] + [place] [address] GERSON JENNIFIER Unavailable [address] + [place] [address] [facility] Unavailable [address] + [place] [address] GERSON JENNIFIER Un[address] + [place] [address] [facility] Unavailable [address] + [place] [address] NIETO, JENNIFIER Unavailable [address] + [place] [address] [facility] Unavailable [address] + [place] [address] NIETO, JENNIFIER Unavailable [address] + [place] [address] [facility] Unavailable [address] + [place] [address] NIETO, JENNIFIER Unavailable [address] + [place] [address] Care Team Providers Name Role Phone GANTA, SANDRA Attending Unavailable GANTA, SANDRA Referring Unavailable GANTA, SANDRA Referring Unavailable GANTA, SANDRA Attending Unavailable GANTA, SANDRA Referring Unavailable GANTA, SANDRA Referring Unavailable Horacio, Vikas H Attending Unavailable Ganta, Sandra Referring Unavailable PRUDENCIO DILL Attending Unavailable PRUDENCIO DILL Referring Unavailable Ganta, Sandra Primary Care Unavailable PRUDENCIO DILL Attending Unavailable PRUDENCIO DILL Referring Unavailable Ganta, Sandra Primary Care Unavailable TEETEE MUÑOZ Consulting Unavailable PRUDENCIO DILL Attending Unavailable Ganta, Sandra Primary Care Unavailable PRUDENCIO DILL Referring Unavailable Ganta, Sandra Primary Care Unavailable PRUDENCIO DILL Attending Unavailable PRUDENCIO DILL Referring Unavailable Ganta, Sandra Primary Care Unavailable PRUDENCIO DILL Attending Unavailable PRUDENCIO DILL Referring Unavailable Ganta, Sandra Primary Care Unavailable PRUDENCIO DILL Attending Unavailable PRUDENCIO DILL Referring Unavailable PRUDENCIO DILL Attending Unavailable PRUDENCIO DILL Referring Unavailable Ganta, Sandra Primary Care Unavailable PRUDENCIO DILL Attending Unavailable PRUDENCIO DILL Referring Unavailable Ganta, Sandra Primary Care Unavailable Moodispaw, Sami Attending Unavailable Ganta, Sandra Referring Unavailable Mood[place], Sami Attending Unavailable [place], Sami Referring Unavailable Ganta, Sandra Primary Care Unavailable PRUDENCIO DILL Consulting Unavailable PRUDENCIO DILL Attending Unavailable Ganta, Sandra Primary Care Unavailable PRUDENCIO DILL Referring Unavailable PRUDENCIO DILL Attending Unavailable PRUDENCIO DILL Referring Unavailable Ganta, Sandra Primary Care Unavailable PRUDENCIO DILL Attending Unavailable Ganta, Sandra Primary Care Unavailable Moodispaw, Sami Attending Unavailable Ganta, Sandra Referring Unavailable Ganta, Sandra Primary Care Unavailable Jopperi, Fermin Admitting Unavailable Moodispaw, Sami Consulting Unavailable Pedro, Kike Attending Unavailable Ganta, Sandra Primary Care Unavailable Jopperi, Fermin Attending Unavailable Jopperi, Fermin Admitting Unavailable Moodispaw, Sami Attending Unavailable Ganta, Sandra Primary Care Unavailable Mood[place], Sami Consulting Unavailable Jopperi, Fermin Consulting Unavailable Jopperi, Fermin Admitting Unavailable Mood[place], Sami Attending Unavailable Ganta, Sandra Primary Care Unavailable Mood[place], Sami Consulting Unavailable Pedro, Kike Consulting Unavailable Jopperi, Fermin Admitting Unavailable Ganta, Sandra Primary Care Unavailable Moodisp[place], Sami Consulting Unavailable Pedro, Kike Attending Unavailable Pedro, Kike Consulting Unavailable Jopperi, Fermin Admitting Unavailable Rhiannon, Helio Attending Unavailable Ganta, Sandra Primary Care Unavailable Moodispaw, Sami Consulting Unavailable Pedro, Kike Consulting Unavailable Jopperi, Fermin Admitting Unavailable Pedro, Kike Attending Unavailable Ganta, Sandra Primary Care Unavailable Moodisp[place], Sami Consulting Unavailable Pedro, Kike Consulting Unavailable Roof, Vikas H Attending Unavailable Ganta, Sandra Referring Unavailable Roof, Vikas H Attending Unavailable Roof, Vikas H Referring Unavailable Ganta, Sandra Primary Care Unavailable PRUDENCIO DILL Attending Unavailable Ganta, Sandra Primary Care Unavailable PRUDENCIO DILL Referring Unavailable Roof, Vikas H Consulting Unavailable Rhiannon, Helio Attending Unavailable Pedro, Kike Referring Unavailable Moodispaw, Sami Attending Unavailable Ganta, Sandra Referring Unavailable Moodispaw, Sami Attending Unavailable Moodisp[place], Sami Referring Unavailable Ganta, Sandra Primary Care Unavailable Taylor Leonard Attending Unavailable Moodispaw, Sami Referring Unavailable Ganta, Sandra Primary Care Unavailable [place], Sami Consulting Unavailable Andrea Peace Attending Unavailable Mood[place], Sami Referring Unavailable Ganta, Sandra Primary Care Unavailable Mood[place], Sami Consulting Unavailable [place], Sami Attending Unavailable Ganta, Sandra Referring Unavailable PROBLEMS PROBLEMS DATE TYPE CONDITION / CODE ATTENDING STATUS SOURCE 09/17/2018 Unknown I10 - Essential [place], Active [place] (primary) hypertension Sami [facility] / I10(ICD-10) Hospital Repository 09/17/2018 Unknown R06.02 - Shortness of [place], Active [place] breath / R06.02(ICD-10) [facility] Repository 09/17/2018 Unknown E78.5 - Hyperlipidemia, [place], Active [place] unspecified / [facility] E78.5(ICD-10) Hospital Repository 09/17/2018 Unknown I05.1 - Rheumatic [place], Active [place] mitral insufficiency / [facility] I05.1(ICD-10) Hospital Repository 09/17/2018 Unknown I48.1 - Persistent [place], Active [place] atrial fibrillation / [facility] I48.1(ICD-10) Hospital Repository 09/17/2018 Unknown R60.9 - Edema, [place], Active [place] unspecified / [facility] R60.9(ICD-10) Hospital Repository 07/08/2017 Active Mixed hyperlipidemia / NA Active [facility] E78.2(ICD-10) [facility] [place] Repository 09/15/2018 Active Other retirement NA Active [facility] (current) drug therapy [facility] / Z79.899(ICD-10) [place] Repository 09/15/2018 Active Hypothyroidism, NA Active [facility] unspecified / [facility] E03.9(ICD-10) [place] Repository 09/15/2018 Active Hyperglycemia, NA Active [facility] unspecified / [facility] R73.9(ICD-10) [place] Repository 09/15/2018 Active Other hyperlipidemia / NA Active [facility] E78.49(ICD-10) [facility] [place] Repository 07/21/2018 Unknown I48.91 - Unspecified Pedro, Kike Active [place] atrial fibrillation / [facility] I48.91(ICD-10) Hospital Repository 07/17/2018 Unknown 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.2 - Unspecified PRUDENCIO DILL 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 / Repository N05.2(ICD-10) 07/17/2018 Unknown N03.9 - Chronic PRUDENCIO DILL Active [place] nephritic syndrome with Community unspecified morphologic Hospital changes / N03.9(ICD-10) Repository 07/17/2018 Unknown N18.2 - Chronic kidney PRUDENCIO DILL Active [place] disease, stage 2 (mild) Community / N18.2(ICD-10) Hospital Repository 06/09/2018 Unknown R80.9 - Proteinuria, PRUDENCIO DILL Active [place] unspecified / Community R80.9(ICD-10) Hospital Repository 03/28/2018 Active Encounter for screening NA Active [place] mammogram for malignant [facility] neoplasm of breast / [place] Z12.31(ICD-10) Repository 03/28/2018 Active Unknown / UNK(Unknown) SANDRA MORALES Active [facility] Repository 03/07/2018 Unknown N18.1 - Chronic kidney PRUDENCIO DILL Active [place] disease, stage 1 / Community N18.1(ICD-10) Hospital Repository 06/11/2018 Unknown N18.3 - Chronic kidney PRUDENCIO DILL Active [place] disease, stage 3 Community (moderate) / Hospital N18.3(ICD-10) Repository PROCEDURES PROCEDURES No Procedure Records FoundRESULTS RESULTS RENAL PROFILE Collected: 11/05/2018 Status: F Source: HECTOR 2:58 PM [facility] REPOSITORY TYPE CODE TESTS RESULT OUT OF RANGE REFERENCE UNITS LAB L501.0100 74-106 mg/dL Normal GLU 90 Result Comment: Please note revised GLUCOSE reference range effective 2017. LAB L501.1000 7-18 mg/dL High BUN 23 LAB L501.1100 0.55-1.02 mg/dL High CREAT,SERUM 1.19 Result Comment: The validity of the calculated GFR AND GFRAA in patients over 70 years has not been determined. Clinical correlation is essential. LAB L501.1110 >60 mL/min Low EST GFR 48 Result Comment: Non- GFR Calc LAB L501.1115 >60 mL/min Low EST GFR - AA 58 Result Comment: GFR Calc LAB L501.1300 10-20 RATIO Normal BUN/CRE 19.3 LAB L501.1800 3.2-5.0 g/dL Normal ALB 3.4 LAB L501.2200 8.5-10.1 mg/dL CA Normal 9.1 LAB L501.2300 2.5-4.9 mg/dL Normal PHOS 3.0 LAB L501.5300 136-145 mmol/L NA Normal 142 LAB L501.5600 3.5-5.1 mmol/L K Normal 4.1 LAB L501.5900 98-107 mmol/L CL Normal 106 LAB L501.6100 21.0-32.0 mmol/L Normal CO2 27.0 Performed By: #### L500.3600 #### [facility] [address] [place], [address] PROTEIN+CREATININE Collected: Status: F Source: HECTOR RATIO,URINE 11/05/2018 2:58 PM [facility] REPOSITORY TYPE CODE TESTS RESULT OUT OF RANGE REFERENCE UNITS LAB L501.1200 NO RANGE EST. mg/dL Normal UR CREAT 139.00 LAB L501.1930 <11.9 mg/dL High 51.4 PROTEIN,UR.R AN. LAB L501.1940 0-200 mg/g CRE High PROT:CRE 370 RATIO Performed By: #### L501.0900 #### [facility] [address] [facility] [facility] [place], [address] URINALYSIS, ROUTINE Collected: 11/05/2018 Status: F Source: HECTOR (DIPSTICK) 2:58 PM [facility] REPOSITORY Order Comment: How was Urine Obtained? [...] L400.3550 5.0 - 8.0 pH UR Normal 7.0 LAB L400.3600 Negative mg/dl High PROT DIPSTX 100 LAB L400.3700 Normal mg/dl Normal UROBILI Normal LAB L400.3750 Negative Normal NITRITE UR Negative LAB L400.3780 Negative /ul High 50 OCCULT BLOOD-UR LAB L400.3800 Negative /ul LEUK Normal ESTERASE Negative Performed By: #### L400.2011 #### [facility] [address] [place], [address] OBSOLETE Observed: 10/30/2018 Status: COMPLETED Source: [place] 12:00 AM [facility] REPOSITORY Refill (INTMWS) SUSANNE COLINDRES ([id number]) 1950 F Date Time Provider Department 10/30/18 SANDRA MORALES During your visit today, we recorded the following information about you: Sahra Hughes Psr 10/30/2018 4:59 PM Signed Patient has been identified by name and date of : Yes Pending Prescriptions Disp Refills ATENOLOL 50 MG TABLET 90 tablet 3 Sig: Take 1 tablet by mouth once daily. CARLOS: No RX INSTRUCTIONS: Per regional transfer liaison, Dr. Sami Oleary at [facility] she told the nurse on 09/15/18 about this change but not on her record. She is taking 50 mg; Take one tablet daily. Please send by tomorrow. She is out tomorrow. Patient aware RX will be sent to pharmacy. Please call the patient once completed. Sahra Hughes Psr Mindy Juares RN 10/31/2018 8:57 AM Signed Patient has been identified by name and date of : Yes Patient phones for refill(s): Pending Prescriptions Disp Refills ATENOLOL 50 MG TABLET 90 tablet 3 Sig: Take 1 tablet by mouth once daily. CARLOS: No Date of last office visit in primary care: 09/15/18, future appt. 12/15/18 see patient note below Last 2 Encounter Wt Readings: Date: Wt: 09/15/2018 70.8 kg (156 lb) 03/28/2018 63.1 kg (139 lb 1 oz) Previous labs/tests for medication: Blood Pressure: BUN (mg/dL) Date Value 09/15/2018 15 Sodium (mmol/L) Date Value 09/15/2018 140 Last 1 Encounter BP Readings: Date: BP: 09/15/2018 132/74 Please advise. Thank you. Mindy Juares RN Allergies As of Date: 10/30/2018 Noted Allergy Reaction LISINOPRIL 03/03/2009 3 - Cough PENICILLINS 01/31/2006 Comments: yeast infection Date Reviewed: 10/28/2017 Reviewed by: Suly Calles LPN - Fully Assessed Reason for Visit: Refill Request [94] Order(s):atenolol (TENORMIN) 50 mg tabletTake 1 tablet by mouth once daily.Disp: 90 tabletRfl: 3 Prescriptions as of 10/30/2018 Sig: ATENOLOL 50 MG TABLET Take 1 tablet by mouth once d* LEVOTHYROXINE 137 MCG TABLET Take 1 tablet by mouth once d* ACETAMINOPHEN 500 MG TABLET Take 1 tablet by mouth every * SPIRONOLACTONE 25 MG TABLET Take 1 tablet by mouth once d* RIVAROXABAN 20 MG TABLET Take 1 tablet by mouth daily * CORTICOTROPIN 80 UNIT/ML INJE* As prescribed FLUOXETINE 20 MG CAPSULE Take 1 capsule [...] twice daily. Problem List As Of Date 10/30/2018 Noted Resolved OSTEOCHONDROPATHY NOS [M93.90] INVALID FOR* [...] [I34.0] INVALID FOR* Pulmonary hypertension, secondary (HCC) [PUG017*INVALID FOR* Proteinuria [R80.9] INVALID FOR* Stage 3 chronic kidney disease [N18.3] INVALID FOR* More... Dependent edema [R60.9] INVALID FOR* Nephrotic syndrome [N04.9] INVALID FOR* More... Persistent atrial fibrillation (HCC) [I48.1] INVALID FOR* More... Prescriptions ordered this encounter Disp Refills Start End ATENOLOL 50 MG TABLET 90 t* 3 10/31/2018 Route: ORAL Sig: Take 1 tablet by mouth once daily. Medications Discontinued During This Encounter atenolol (TENORMIN) 25 mg tablet 90 t* 3 03/28/2018 10/31/2018 Route: ORAL Sig: Take 1 tablet by mouth once daily. Disc: Reason for discontinue is not on file. Encounter Status:Closed by SANDRA MORALES MD on 10/31/18 CARDIOLOGY VISIT Observed: 10/29/2018 Status: F Source: [place] REPORT 3:48 PM [facility] REPOSITORY [facility] [address] [place] [address] OFFICE VISIT Date of Service: 10/28/18 MR#: [id number] Acct: [id number] Name: SUSANNE COLINDRES Rep #: [id number] : 1950 Provider: LOPEZ Leonard Age/Sex: 67/F [place] [facility] Status: Signed HPI HPI Details: SUSANNE COLINDRES, is a 67 F who presents to the office today for a cardiovascular outpatient follow-up. She has a history of atrial fibrillation/flutter status post cardioversion on 09/09/18, mitral valve disease, hypertension, hyperlipidemia, and thyroid disorder. She denies chest, arm, jaw, or neck discomfort. Her exercise tolerance is stable. Pt denies symptoms of CHF, lightheadedness, dizziness, near syncopal or syncopal episodes. She states rare palpitations that are short lasting. This is most noted when lying down. Pt denies claudication issues. Pt. denies orthopnea, PND, fever, chills, blood in urine, blood in stool, myalgia, or unexplainable fatigue. She states continual improvement regarding her SOB. She states minimal bilateral lower extremity edema that improves over night. 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 Accompanied by: Daughter Allergies Penicillins [PCN] Allergy (Verified 10/28/18 09:51) Unknown lisinopril Adverse Reaction (Intermediate, Verified 10/28/18 09:51) cough Medications Atorvastatin Calcium [Lipitor] 40 mg PO DAILY 08/16/17 [History Confirmed 10/28/18] Fluoxetine [Prozac] 20 mg PO DAILY 08/16/17 [History Confirmed 10/28/18] Losartan Potassium [Cozaar] 50 mg PO BID 08/16/17 [History Confirmed 10/28/18] acetaminophen 500 mg capsule 500 mg PO Q6H PRN 10/17/17 [History Confirmed 10/28/18] Ascorbic Acid [Vitamin C] 500 mg PO DAILY@0800 02/10/18 [History Confirmed 10/28/18] calcium carbonate 600 mg (1,500 mg)-vitamin D3 200 unit tablet 1 tab PO QDAY 04/24/18 [History Confirmed 10/28/18] Bupropion HCl [Bupropion HCl Sr] 150 mg PO DAILY 07/17/18 [History Confirmed 10/28/18] Spironolactone 25 mg PO DAILY 07/17/18 [History Confirmed 10/28/18] atenolol 50 mg tablet 50 mg PO BID tab 10/28/18 [History Confirmed 10/28/18] corticotropin 80 unit/mL injection gel 80 unit SC .COMPLEX 30 Days ml 10/28/18 [History Confirmed 10/28/18] diltiazem CD 240 mg capsule,extended release 24 hr 240 mg PO BID 90 Days #180 cap 10/28/18 [Rx Confirmed 10/28/18] levothyroxine 137 mcg tablet 137 mcg PO DAILY 10/28/18 [History Confirmed 10/28/18] rivaroxaban 20 mg tablet 20 mg PO DAILY@1700 #30 tab 10/28/18 [Rx Confirmed 10/28/18] Ejection fraction %: 55 to 59 PFSH Medical History SOB (shortness of breath) (Resolved) Edema (Chronic) Rheumatic mitral regurgitation (Chronic) Hyperlipidemia (Chronic) Hypertension (Chronic) CKD (chronic kidney disease) (Chronic) Hypothyroidism (Chronic) Surgical History History of carpal tunnel surgery (Resolved) History of dilatation and curettage (Resolved) History of hip replacement, total (Resolved) History of tubal ligation (Resolved) Family History Father Heart disease Social History Smoking Status: Never smoker alcohol intake: never substance use type: does not use caffeine: No ROS Const Const: Negative for body ache, fever(s), chills, fatigue or weakness ENT ENT: Negative for dizziness Cardio Chest Pain: No Palpitations: No Edema: Bilateral Muscle aches with walking: None Resp Respiratory: Positive for SOB with activity; negative for SOB at rest, SOB orthopnea\SOB lying down or paroxysmal nocturnal dyspnea GI GI: Negative nausea, black,tarry stools, bright, red blood in stools or vomiting blood/hematemesis : Negative for hematuria or frequent nighttime urination/ nocturia Musc Musc: Positive for joint pain; negative for muscle aches/ myalgia Skin Skin: Negative non-healing lesions or rash Neuro Neuro: Negative for weakness, dizziness, lightheadedness, near syncope, syncope or orthostatic symptoms Endo Endo: Negative for fatigue Allergy Allergy/Immunology: Negative for rash Cardiology Exam Const Appearance: cooperative, healthy appearing, comfortable, well developed and well groomed Nutritional Appearance: well nourished and obese Orientation: alert, awake and oriented x3 Head Head: normal to inspection, normocephalic and atraumatic Ears: hearing grossly normal bilaterally Nose: external nose normal Face and Sinus: face symmetric Mouth: oral mucosae normal Eyes Eyelids: eyelids normal Conjunctivae: conjunctivae normal Pupils: PERRL EOM: EOM intact bilaterally Neck Neck: normal visual inspection Carotids: normal carotid upstroke Chest Chest inspection: normal inspection of the chest, symmetric chest movement and normal respiratory effort Auscultation: Bilateral: Clear to Auscultation Cardio Palpation: normal PMI Rhythm: regular rhythm Heart sounds: S1 normal, S2 normal and murmur; negative gallop or rub Murmur: Grade 3/6, holosystolic, apex, axilla and LLSB GI GI: normal to inspection and obese Neuro General: alert, awake and oriented x3 Skin Skin: no rashes or lesions noted Extremities Pulses: Normal: Right Posterior Tibial Pulse, Left Posterior Tibial Pulse, Right Radial Pulse, Left Radial Pulse Lower Extremity Edema: +1: Bilateral Psych Psychological: normal affect Assessment AND Plan 1. Rheumatic mitral regurgitation I05.1 Plan Her echocardiogram July 2018 showed ejection fraction of 60%, mild diffuse mitral valve thickening, mild focal mitral valve calcification of anterior leaflet, and moderately severe mitral valve insufficiency. Patient's activity level has remained stable. She denies any shortness of breath. At this time she will continue current medications and we will continue to monitor. 2. Paroxysmal atrial fibrillation I48.0 DCCV on 09/09/2018; Plan Her most recent electrocardiogram in September 2018 showed sinus rhythm. She denies any symptomatic recurrence of atrial fibrillation. Based on physical exam she appears to be in a regular rhythm. At this time, she will continue with current rate limiting medications along with factor Xa inhibitor. We will continue to monitor. 3. Essential hypertension I10 Plan She states that her blood pressure has been better controlled at home. She was asked to continue to monitor at home and contact office if she noticed that it is consistently elevated. 4. Pure hypercholesterolemia E78.00 Plan Lipid panel from September 20, 2018 showed Cholesterol: 170, Triglycerides: 91, HDL: 84, and LDL: 68. She will continue current statin medication. We will continue to monitor. Plan Detail Other Medications New: Refilled: Discontinued: Additional Comments Thank you for allowing us to participate in the patient's plan of care, if you have any questions please do not hesitate to call. This note was generated using a voice recognition system and there may be incorrect words, spelling, or punctuation that were not noted upon reviewing the office note prior to saving. Follow Up 6 Months (FAMILY CONSULTANT/PA) 12 Months (PFM) Coding Level of Care Code Off vis,est,level 3 Diagnoses Rheumatic mitral regurgitation I05.1 Paroxysmal atrial fibrillation I48.0 Essential hypertension I10 Hypertension type: essential hypertension Pure hypercholesterolemia E78.00 Hyperlipidemia type: pure hypercholesterolemia Coding Level of Care Code Off vis,est,level 3 Diagnoses Rheumatic mitral regurgitation I05.1 Paroxysmal atrial fibrillation I48.0 Essential hypertension I10 Hypertension type: essential hypertension Pure hypercholesterolemia E78.00 Hyperlipidemia type: pure hypercholesterolemia Supplemental Info Supplemental Information Echocardiogram from July 2018 showed an ejection [...] 48 mmHg, and evidence of diastolic dysfunction. Nuclear stress test from July 2018 was a normal pharmacologic myocardial perfusion stress test with a preserved ejection fraction. Diagnostics Electrocardiogram 09/16/18 10/29/18 1548 <Electronically signed by Vikas GALDAMEZ> Date Vikas GADLAMEZ Cosigner Signature: Date (if applicable) CC: Sandra Morales MD 12 LEAD ELECTROCARDIOGRAM Observed: 09/18/2018 Status: F Source: [place] 3:23 PM [facility] REPOSITORY [facility] Cardiovascular Services [address] [place] [address] 12 Lead EKG 09/09/18 1109 MR#: [id number] Acct: [id number] Name: SUSANNE COLINDRES Rep #: [id number] : 1950 67 From: Sami Oleary MD Attending Dr: Sami Oleary MD Status: [facility] Ordering Dr: Sami Oleary MD Date: 09/09/18 Location: [facility] Sex: F C Admitted: Test Reason [...] Abnormal ECG Confirmed by SAMI OLEARY MD ([id number]), advertising editor MARILYN FULLER ([id number]) on 09/18/2018 3:23:15 PM Referred By: Sami Moodispaw Confirmed By:SAMI OLEARY MD 09/18/18 1523 Date Sami Oleary MD CC: Sandra Morales MD; Sami Oleary MD Signed 12 LEAD EKG PERFORMED Observed: 09/16/2018 Status: F Source: [place] [facility] 9:47 AM [facility] REPOSITORY [facility] [address] [place] [address] 12 Lead EKG performed by [facility] 09/16/18945 MR#: [id number] Acct: [id number] Name: SUSANNE COLINDRES Rep #: [id number] : 1950 67 From: Sami Oleary MD Attending Dr: Sami Oleary MD Status: DEP AMB Ordering Dr: Sami Oleary MD Date: 09/16/18 Location: [facility] Sex: F C Admitted: BMS/12 Lead EKG performed by [facility] ECG Report Interpretation Sinus Rhythm Left atrial enlargement. 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 National Institutes of Health. 2001: NIH Publication No. 01-3305. 2. An International Atherosclerosis Society position paper: global recommendations for the management of dyslipidemia: executive summary, Atherosclerosis. 2014: 232(2):410-413. Performed By: #### LIPB, TSH, HBA1C #### [facility] [address] [place], [place] [address] TSH Collected: 09/15/2018 Status: F Source: [place] 11:20 AM [facility] REPOSITORY TYPE CODE TESTS RESULT OUT OF RANGE REFERENCE UNITS LAB TSH 0.400-5.500 uU/mL High TSH 26.890 Performed By: #### LIPB, TSH, HBA1C #### [facility] [address] [place], [place] [address] HEMOGLOBIN A1C Collected: 09/15/2018 Status: F Source: [place] 11:20 AM [facility] REPOSITORY TYPE CODE TESTS RESULT OUT OF REFERENCE UNITS RANGE LAB HGBA1C 4.3-5.6 % Hemoglobin A1c 5.4 Result Comment: [place] Diabetes Association guidelines indicate that patients with HgbA1c in the range 5.7-6.4% are at increased risk for development of diabetes, and intervention by lifestyle modification may be beneficial. HgbA1c greater or equal to 6.5% is considered diagnostic of diabetes. LAB HBA0 mg/dL Est. Average Glucose 108 Result Comment: eAG: (Estimated average glucose) is a calculated value from HgbA1c and is b2b outside sales representative of the average blood glucose level in the last 2-3 month period. Performed By: #### LIPB, TSH, HBA1C #### [facility] [address] [place] [id number] BASIC METABOLIC PANL Collected: 09/15/2018 Status: F Source: [place] 11:20 AM [facility] REPOSITORY TYPE CODE TESTS RESULT OUT OF REFERENCE UNITS RANGE LAB GLU 74-99 mg/dL Glucose 83 Result Comment: The [place] Diabetes Association (ADA) provides guidance for cutoff [...] Standards of Medical Care in Diabetes 2016, [place] Diabetes Association. Diabetes Care. 2016.39(Suppl 1). LAB [...] actual GFR. Performed By: #### BMP #### [facility] [address] [place] [id number] PROGRESS Observed: 09/15/2018 Status: COMPLETED Source: [place] 10:19 AM [facility] [place] REPOSITORY HNO ID: [id number] Author: Sandra Morales Service: (none) Author Type: Physician Type: Progress Notes Filed: 09/15/2018 5:38 PM Note Text: Reason for Visit Patient presents with: Established Patient: 6 month follow up- hospital follow up ermelinda phillips Susanne Colindres is a 67 year old [...] Laterality Date - COLONOSCOP W/ OR W/O [facility] SPEC 11/02/2013 Colonoscopy - DANDC, DIAG AND/OR THERAPEUTIC prior to 1994 Dilation AND curettage/polypectomy - LIGATE FALLOPIAN TUBE 1979 Tubal ligation - TOTAL HIP REPLACEMENT 10/16/2011 Hip replacement, total right - [facility] Dr. Schofield - FAMILY HISTORY Problem Relation [...] BLD will have to check lipids today SANDRA MORALES MD CNOV Observed: 09/15/2018 Status: COMPLETED Source: [place] 9:40 AM [facility] REPOSITORY Office Visit (INTMWS) SUSANNE COLINDRES ([id number]) 1950 F Date Time Provider Department 09/15/18 9:40 AM SANDRA MORALSE INTMWS During your visit today, we recorded the following information about you: Pulse Respiration Blood pressure Weight 71/minute 12/minute 132/74 70.8 kg Height 1.549 m Suly Calles JAIME 09/15/2018 10:24 AM Signed Patient stated she seeing . SANDRA MORALES MD 09/15/2018 5:38 PM Signed Reason for Visit Patient presents with: Established Patient: 6 month follow up- hospital follow up a alan Colindres is a 67 year old female [...] Laterality Date - COLONOSCOP W/ OR W/O [facility] SPEC 11/02/2013 Colonoscopy - DANDC, DIAG AND/OR THERAPEUTIC prior to 1994 Dilation AND curettage/polypectomy - LIGATE FALLOPIAN TUBE 1979 Tubal ligation - TOTAL HIP REPLACEMENT 10/16/2011 Hip replacement, total right - [facility] Dr. Schofield - FAMILY HISTORY Problem Relation [...] will have to check lipids today MD SANDRA TYLER MD 09/15/2018 10:38 AM Written The [...] heart was 48 mm hg. Referring Provider: SANDRA MORALES [[id number]] Allergies As of Date: 09/15/2018 Noted Allergy Reaction LISINOPRIL 03/03/2009 3 - Cough PENICILLINS 01/31/2006 Comments: yeast infection Date Reviewed: 10/28/2017 Reviewed by: Suly Calles LPN - Fully Assessed Reason for Visit: Established Patient [175] Cmt: 6 month follow up- hospital follow up a fib Primary Visit Diagnosis:Nephrotic syndrome [N04.9] Other Visit Diagnoses:Persistent atrial fibrillation (HCC) [I48.1] Elevated blood sugar [R73.9] Acquired hypothyroidism [E03.9] Other hyperlipidemia [E78.49] Order(s):HGB A1C [IUZAB2Z] Order #: [id number] FUTURE corticotropin (ACTHAR HP) 80 unit/mL injectable gelAs prescribedDisp: Rfl: TSH BLD [SQTSH] Order #: [id number] FUTURE SYNTHROID 125 mcg tabletTake 1 tablet by mouth once daily. Take on empty stomach. For ThyroidDisp: 60 tabletRfl: 3 LIPID PANEL BASIC [SQLIPB] Order #: [id number] FUTURE Prescriptions as of 09/15/2018 Sig: ACETAMINOPHEN [...] this encounter ATENOLOL 25 MG TABLET >> Suly Calles LPN 09/15/2018 10:00 AM >> SULY CALLES LPN SatSep 15, 2018 10:00 AM Takes 25 mg twice daily FLUOXETINE 20 MG CAPSULE >> Suly Calles LPN 09/15/2018 10:02 AM >> SULY CALLES LPN SatSep 15, 2018 10:02 AM taking as needed >> Suly Calles LPN 09/15/2018 10:03 AM >> SULY CALLES LPN SatSep 15, 2018 10:03 AM Correction taking 20mg once daily BUPROPION HCL SR 150 MG TABLET,12 HR SUSTAINED-RELEASE >> Suly Calles LPN 09/15/2018 10:01 AM >> SULY CALLES LPN SatSep 15, 2018 10:01 AM taking only once daily LEVOTHYROXINE 125 MCG TABLET >> Suly Calles LPN 09/15/2018 10:05 AM >> SULY CALLES LPN SatSep 15, 2018 10:05 AM Patient has to take name brand- CARLOS OMEPRAZOLE 40 MG CAPSULE,DELAYED RELEASE >> Suly Calles LPN 09/15/2018 10:06 AM >> SULY CALLES LPN SatSep 15, 2018 10:06 AM [...] [I34.0] INVALID FOR* Pulmonary hypertension, secondary (HCC) [QEY818*INVALID FOR* Proteinuria [R80.9] INVALID FOR* Stage 3 chronic kidney disease [N18.3] INVALID FOR* More... Dependent edema [R60.9] INVALID FOR* Nephrotic syndrome [N04.9] INVALID FOR* More... Persistent atrial fibrillation (HCC) [I48.1] INVALID FOR* More... Visit Notes: >> Suly Calles LPN SatSep 15, 2018 10:08 AM Status: Signed Patient [...] is not on file. Encounter Status:Closed by SANDRA MORALES MD on 09/15/18 OFFICE VISIT REPORT Observed: 09/10/2018 Status: F Source: [place] 8:16 AM [facility] [address] OFFICE VISIT Date of Service: 08/26/18 MR#: [id number] Acct: [id number] Patient: SUSANNE COLINDRES Rep #: [id number] : 1950 Provider: Sami Oleary MD Age/Sex: 67/F Location: [facility] Status: Signed Intake Intake Visit Reasons: DCCV [...] review instructions for upcoming DCCV. Questions answered. 09/10/1816 <Electronically signed by Vikas GALDAMEZ> Date Vikas GALDAMEZ Cosigner Signature: Date (if applicable) CC: Taylor Green OPERATIVE REPORT Observed: 09/10/2018 Status: F Source: [place] 5:47 AM [facility] REPOSITORY [facility] Medical Records Department [address] [place] [address] Operative Report 09/09/18 1400 MR#: [id number] Acct: [id number] Name: SUSANNE COLINDRES Rep #: [id number] : 1950 67 From: Andrea Peace MD PCP: Sandra Morales MD Status: [facility] Y Location: [facility] Problem List (1) Atrial fibrillation Status: [...] is a 67-year-old female who presented to [facility] for an elective outpatient cardioversion due to [...] Visit 9xxxx: Other Procedure See Report - 87707 -10 minutes of conscious sedation 09/10/18 0547 <Electronically signed by Andrea Peace MD> Date Andrea Peace MD CC: Andrea Peace MD; Sandra Morales MD; Sami Oleary MD Signed OPERATIVE REPORT Observed: 09/09/2018 Status: F Source: [place] 1:08 PM [facility] REPOSITORY [facility] Medical Records Department [address] [place] [address] Operative Report 09/09/18 1306 MR#: [id number] Acct: [id number] Name: SUSANNE COLINDRES Rep #: [id number] : 1950 67 From: Sami Oleary MD PCP: Sandra Morales MD Status: [facility] Y Location: [facility] Problem List (1) Atrial fibrillation Status: [...] apparent complications This note was generated with Pharmalinkation software. It may contain incorrect words, spelling, and punctuation that were not noted in checking the note before signing. 09/09/18 1308 <Electronically signed by Sami Oleary MD> Date Sami Oleary MD CC: Sandra Morales MD; Sami Oleary MD Signed HISTORY AND PHYSICAL Observed: 09/09/2018 Status: F Source: HECT[place] EXAM 12:29 PM [facility] REPOSITORY [facility] Medical Records Department [address] [place] [address] History and Physical 09/09/18 1217 MR#: [id number] Acct: [id number] Name: SUSANNE COLINDRES Rep #: [id number] : 1950 67 From: Taylor JARQUIN PCP: Sandra Morales MD Status: [facility] Y Location: [facility] Problem List (1) Atrial fibrillation Status: [...] her Kidneys that was prescribed by her supervisor histology. Allergies Penicillins [PCN] Allergy (Verified 08/01/18 08:32) [...] signed by Taylor JARQUIN> Date Taylor JARQUIN [facility] Signature: Date (if applicable) CC: Sandra Morales MD; Taylor Leonard Signed [facility] Observed: 09/02/2018 Status: COMPLETED Source: [place] 12:00 AM [facility] REPOSITORY Patient Outreach (INTMWH) SUSANNE COLINDRES ([id number]) 1950 F Date Time Provider Department 09/02/18 SANDRA MORALES [facility] During your visit today, we recorded the following information about you: Allergies As of Date: 09/02/2018 Noted Allergy Reaction LISINOPRIL 03/03/2009 3 - Cough PENICILLINS 01/31/2006 Comments: yeast infection Date Reviewed: 10/28/2017 Reviewed by: Suly Calles LPN - Fully Assessed Visit Diagnosis:Medication management [Z79.899] Order(s):BASIC METABOLIC PNL [SQBMP] Order #: [id number] FUTURE Prescriptions as of 09/02/2018 Sig: ATENOLOL 25 MG TABLET Take 1 tablet by mouth once d* ATORVASTATIN 40 MG TABLET Take 1 tablet by mouth once d* BUPROPION HCL SR 150 MG TABLE* Take 1 tablet by mouth twice * * CALCIUM + VITAMIN D ORAL Take by mouth twice daily. COMPOUNDED PRESCRIPTION Consult endo: Dr. Jorge Maher* FLUOXETINE 20 MG CAPSULE Take 1 capsule by mouth once * LOSARTAN 50 MG TABLET Take 1 tablet by mouth twice * OMEPRAZOLE 40 MG CAPSULE,QASIM* Take 1 capsule by mouth once * Patient not taking: Reported on 03/28/2018 X LEVOTHYROXINE 125 MCG TABLET Take on empty stomach. For th* Problem List As Of Date 09/02/2018 Noted Resolved OSTEOCHONDROPATHY NOS [M93.90] INVALID FOR* [...] [I34.0] INVALID FOR* Pulmonary hypertension, secondary (HCC) [PJF689*INVALID FOR* Proteinuria [R80.9] INVALID FOR* Stage 3 chronic kidney disease [N18.3] INVALID FOR* More... Dependent edema [R60.9] INVALID FOR* Nephrotic syndrome [N04.9] INVALID FOR* More... Encounter Status:Closed by ActiveSec, PRODUSER on 10/03/18 PROTEIN+CREATININE Collected: Status: F Source: [place] RATIO,URINE 08/20/2018 9:07 AM [facility] REPOSITORY TYPE CODE TESTS RESULT OUT OF RANGE REFERENCE UNITS LAB L501.1200 NO RANGE EST. mg/dL < Normal UR 13.00 CREAT LAB L501.1930 <11.9 mg/dL High 17.4 PROTEIN,UR. RAN. LAB L501.1940 0-200 mg/g CRE Test Normal not performed PROT:CRE RATIO Performed By: #### L501.0900 #### [facility] [address] [place], [address] URINALYSIS, ROUTINE Collected: 08/20/2018 Status: F Source: HECTOR (DIPSTICK) 9:07 AM [facility] REPOSITORY Order Comment: How was Urine Obtained? [...] ESTERASE Negative Performed By: #### L400.2010 #### [facility] [address] [facility] [place], [address] PROTHROMBIN TIME W/INR Collected: 08/20/2018 Status: F Source: [place] 9:06 AM [facility] REPOSITORY Order Comment: WANTS [facility] TYPE CODE TESTS RESULT OUT OF RANGE REFERENCE UNITS LAB L300.4150 11.7-14.9 SECONDS High PROTIME 20.5 LAB L300.4200 Normal INR 1.8 Performed By: #### L300.3900 #### [facility] [address] [facility] [place], [address] BASIC METABOLIC Collected: 08/20/2018 Status: F Source: [place] PROFILE (BMP) 9:06 AM [facility] REPOSITORY Order Comment: WANTS [facility] ALSO TYPE CODE TESTS RESULT OUT OF [...] GAP 7 Performed By: #### L500.2500 #### [facility] [address] [place], [address] CARDIOLOGY VISIT Observed: 08/01/2018 Status: F Source: [place] REPORT 12:51 PM [facility] REPOSITORY [facility] [address] [place], [place] [address] OFFICE VISIT Date of Service: 08/01/18 MR#: [id number] Acct: [id number] Name: SUSANNE COLINDRES Rep #: [id number] : 1950 Provider: LOPEZ Leonard Age/Sex: 67/F [place] [facility] Status: Signed HPI HPI Details: SUSANNE COLINDRES, is a 67 F who presents to the office today for a cardiovascular outpatient follow-up. She has a history of atrial fibrillation/flutter, mitral valve disease, hypertension, hyperlipidemia, and thyroid disorder. After last office visit she was transferred to [facility] emergency department for further evaluation of his [...] CD] 120 mg PO Q12 #60 cap 10/06/18 [Rx] Rivaroxaban [Xarelto] 20 mg PO DAILY@1700 #30 tab 07/19/18 [Rx] amlodipine 2.5 mg tablet 2.5 mg PO QHS 08/01/18 [History Confirmed 08/01/18] PFS Medical History SOB (shortness of breath) (Acute) [...] states they will discuss diuretic adjustment with supervisor histology prior to initiating. She was advised to [...] hypertension 08/01/18 1251 <Electronically signed by Vikas GALDAMEZ> Date Vikas GALDAMEZ Cosigner Signature: Date (if applicable) CC: Sandra Morales MD BNP,B-TYPE NATRIURETIC Collected: 08/01/2018 Status: F Source: [place] 9:35 AM [facility] REPOSITORY TYPE CODE TESTS RESULT OUT OF RANGE REFERENCE UNITS LAB L503.6620 0-100 pg/mL High B-TYPE 511.7 SADIE PEP Performed By: #### L503.6620 #### [facility] [address] [place], [address] 12 LEAD ELECTROCARDIOGRAM Observed: 07/23/2018 Status: F Source: [place] 3:42 PM [facility] REPOSITORY [facility] Cardiovascular Services [address] [place] [address] 12 Lead EKG 07/18/18 0541 MR#: [id number] Acct: [id number] Name: SUSANNE COLINDRES Rep #: [id number] : 1950 67 From: Helio Jurado MD Attending Dr: Kike Vasquez MD Status: DIS IN Ordering Dr: Sami Oleary MD Date: 07/18/18 Location: [facility] Sex: F C Admitted: 07/17/18 Test [...] COMPARISON REQUIRED, DATA IS UNCONFIRMED Confirmed by HELIO JURADO MD ([id number]), advertising editor MARILYN FULLER ([id number]) on 07/23/2018 3:41:33 PM Referred By: SHARRI Confirmed By:HELIO JURADO MD 07/23/18 1541 Date Helio Jurado MD CC: Sandra Morales MD; Sami Oleary MD; Kike Vasquez MD Signed 12 LEAD ELECTROCARDIOGRAM Observed: 07/21/2018 Status: F Source: [place] 2:24 PM [facility] REPOSITORY [facility] Cardiovascular Services [address] [place] [address] 12 Lead EKG 07/17/18 1600 MR#: [id number] Acct: [id number] Name: SUSANNE COLINDRES Rep #: [id number] : 1950 67 From: Helio Jurado MD Attending Dr: Kike Vasquez MD Status: DIS IN Ordering Dr: Jung Vallejo DO Date: 07/17/18 Location: [facility] Sex: F C Admitted: 07/17/18 Test Reason : Blood Pressure : / mmHG Vent. Rate : 128 BPM Atrial Rate : 138 BPM P-R Int : 192 ms QRS Dur : 092 ms QT Int : 266 ms P-R-T Axes : 051 028 023 degrees QTc Int : 388 ms Sinus tachycardia Septal infarct , age undetermined Abnormal ECG Confirmed by HELIO JURADO MD ([id number]), advertising editor MARILYN FULLER ([id number]) on 07/21/2018 2:24:00 PM Referred By: DELROY Confirmed By:HELIO JURADO MD 07/21/18 1424 Date Helio Jurado MD CC: Sandra Morales MD; Jung Vallejo DO; Kike Vasquez MD Signed DISCHARGE SUMMARY Observed: 07/19/2018 Status: F Source: [place] 1:01 PM [facility] REPOSITORY [facility] Medical Records Department [address] [place] [address] Discharge Summary 07/19/18 0941 MR#: [id number] Acct: [id number] Name: SUSANNE COLINDRES Rep #: [id number] : 1950 67 From: Kike Vasquez MD PCP: Sandra Morales MD Status: DIS IN [id number] Dis[facility] Date and Diagnosis Date of Admission: [...] controlled but is still A. fib on desk monitor. On exam General: Alert, Oriented x3, [...] 50 mg daily. Patient was seen by regional transfer liaison Dr. Oleary. Patient is on Xarelto 20 mg daily. TSH mildly elevated 5.57, free T4 1.4, free T3 0.7 low. Free T3 was also low 1.6 in September 2017. As the patient has A. fib with RVR and free T4 normal, it was decided to keep her levothyroxine 125 mcg daily. Might be assessed as an outpatient if [place] Thyroid, combination of T4 and T3 is [...] PO DAILY@1700 #30 tablet Primary Care Physician: Sandra Morales MD [Primary Care Provider] - Please [...] applicable Code Visit Inpatient E AND M: 93113 Disch Hosp 07/19/18 1301 <Electronically signed by Kike Vasquez MD> Date Kike Vasquez MD Cosigner Signature (if applicable): Date CC: Sandra Morales MD; Kike Vasquez MD Signed DISCHARGE INSTRUCTION Observed: 07/19/2018 Status: F Source: [place] 9:40 AM [facility] REPOSITORY [facility] Medical Records Department [address] [place] [address] Instructions for Home/Discharge Instructions 07/19/18 0933 MR#: [id number] Acct: [id number] Name: SUSANNE COLINDRES Rep #: [id number] : 1950 67 From: Kike Vasquez MD PCP: Sandra Morales MD Status: ADM IN - Discharge [...] chronically low, 1.6 on 09/16/2017. Might consider [place] Thyroid as an outpatient with PCP Allergies/Adverse Reactions: [...] PO DAILY@1700 #30 tablet Primary Care Physician: Sandra Morales MD [Primary Care Provider] - Please [...] Vasquez MD> Date Kike Vasquez MD CC: Sandra Morales MD; Sami Oleary MD BASIC METABOLIC Collected: 07/19/2018 Status: F Source: [place] PROFILE (BMP) 6:15 AM [facility] REPOSITORY TYPE CODE TESTS RESULT OUT OF [...] GAP 8 Performed By: #### L500.2500 #### [facility] [address] [facility] [place], [address] PARTIAL THROMBOPLAST Collected: 07/18/2018 Status: F Source: [place]ECT[place] TIME 12:38 PM [facility] REPOSITORY TYPE CODE TESTS RESULT OUT OF REFERENCE UNITS RANGE LAB L300.4310 24.1-36.2 Seconds High PTT 52.1 Performed By: #### L300.4310 #### [facility] [address] [place], [address] ECHOCARDIOGRAM COMPLETE Observed: 07/18/2018 Status: F Source: [place] 12:22 PM [facility] REPOSITORY [facility] Cardiovascular Services [address] [place] [address] Echo Complete 07/18/18 0823 MR#: [id number] Acct: [id number] Name: SUSANNE COLINDRES Rep #: [id number] : 1950 67 From: Sami Oleary MD Attending Dr: Kike Vasquez MD Status: ADM IN Ordering Dr: Fermin Harrell DO Date: 07/17/18 Location: [facility] Sex: F C Admitted: 07/17/18 Reason For [...] Doppler Measurements AND Calculations MV E max ariel: 137.0 cm/sec Lat Peak E' Ariel: 9.9 cm/sec Med Peak E' Ariel: 7.4 cm/sec E/E' lat: 13.8 E/E' med: 18.6 MV V2 max: 203.8 cm/sec MV P1/2t max ariel: 202.2 cm/sec Ao V2 max: 174.6 cm/sec [...] LV V1 max: 143.8 cm/sec MR max ariel: 503.7 cm/sec SV(LVOT): 76.4 ml LV V1 max P.3 mmHg MR max P.5 mmHg LV V1 mean P.8 mmHg MR mean ariel: 387.0 cm/sec LV V1 mean: 90.3 cm/sec MR mean P.9 mmHg LV V1 VTI: 23.8 cm MR VTI: 158.6 cm PA V2 max: 95.2 cm/sec TR max ariel: 312.0 cm/sec TR max P.5 mmHg Interpretation [...] 07/18/18 1221 Date Sami Oleary MD CC: Sandra Morales MD; Fermin Harrell DO; Kike Vasquez MD Date Dictated: 07/18/18822 Date Transcribed: 07/18/181220 [employer] Pilot: Signed STRESS REPORT Observed: 07/18/2018 Status: F Source: [place] 12:15 PM [facility] REPOSITORY [facility] Cardiovascular Services [address] [place] [address] MR#: [id number] Acct: [id number] Name: SUSANNE COLINDRES Rep #: [id number] : 1950 67 From: Helio Jurado MD Primary Care: Sandra Morales MD Status: ADM IN Ordering Dr: [...] Jurado MD> Date Helio Jurado MD CC: Sandra Morales MD; Kike Vasquez MD Date Dictated: 07/18/181212 Date Transcribed: 07/18/181212 [employer] Pilot: [place] Signed PARTIAL THROMBOPLAST Collected: 07/18/2018 Status: F Source: [place] TIME 5:08 AM [facility] REPOSITORY TYPE CODE TESTS RESULT OUT OF REFERENCE UNITS RANGE LAB L300.4310 24.1-36.2 Seconds High PTT 43.9 Performed By: #### L300.4310 #### [facility] [place], [address] CBC-COMPLETE BLOOD CNT Collected: 07/18/2018 Status: F Source: [place] NO DIFF 5:08 AM [facility] REPOSITORY TYPE CODE TESTS RESULT OUT OF [...] 10.6 Performed By: #### L100.0500, L300.3900 #### [facility] [address] [place], [place], [address] PROTHROMBIN TIME W/INR Collected: 07/18/2018 Status: F Source: [place] 5:08 AM [facility] REPOSITORY TYPE CODE TESTS RESULT OUT OF RANGE REFERENCE UNITS LAB L300.4150 11.7-14.9 SECONDS Normal PROTIME 14.4 LAB L300.4200 Normal INR 1.1 Performed By: #### L100.0500, L300.3900 #### [facility] [address] [place], [address] BASIC METABOLIC Collected: 07/18/2018 Status: F Source: [place] PROFILE (BMP) 5:08 AM [facility] REPOSITORY TYPE CODE TESTS RESULT OUT OF [...] Normal GAP 9 Performed By: #### L500.2500, L501.04882, L506.0400 #### [facility] [address] [place], [address] FREE T3 Collected: 07/18/2018 Status: F Source: HECTOR 5:08 AM [facility] REPOSITORY TYPE CODE TESTS RESULT OUT OF RANGE REFERENCE UNITS LAB L501.50146 2.18-3.98 pg/mL Low FREE T3 1.7 Performed By: #### L500.2500, L501.36331, L506.0400 #### [facility] [address] [facility] [place], [address] T4 FREE DIRECT Collected: 07/18/2018 Status: F Source: [place] 5:08 AM [facility] REPOSITORY TYPE CODE TESTS RESULT OUT OF RANGE REFERENCE UNITS LAB L506.0400 0.76-1.46 ng/dL Normal T4 FREE 1.44 DIRECT Performed By: #### L500.2500, L501.50914, L506.0400 #### [facility] [address] [facility] [place], [address] EMERGENCY DEPARTMENT Observed: 07/17/2018 Status: F Source: [place] SUMMARY 10:48 PM [facility] REPOSITORY [facility] Medical Records Department [address] [place] [address] Emergency Department Summary 07/17/18 1608 MR#: [id number] Acct: [id number] Name: SUSANNE COLINDRES Rep #: [id number] : 1950 67 From: Jung Vallejo DO PCP: Sandra Morales MD Status: ADM IN - ER Visit Summary Date of Service: 07/17/18 Chief Complaint: Palpitations History of Present Illness: The patient is a 67 F who presents to the emergency department after being referred by her regional transfer liaison. Patient presented to their office today and [...] ventricular response This note was generated with Unomy dictation software. It may contain incorrect words, spelling, and punctuation that were not noted in review of the chart prior to signing ED Disposition - Plan for ED Patient: Chief Complaint: Palpitations Referrals: Sandra Morales MD [Primary Care Provider] - What to do if you have Problems For any increased pain, shortness of breath, bleeding, nausea or vomiting, chest pain, or any unexpected problems, contact your Primary Care Provider. Call [facility] ([phone]) or report to the closest Emergency Room. Call 911 if necessary. 07/17/18 1129 <Electronically signed by Jung Vallejo DO> Date Jung Vallejo DO Nathanigner Signature (If Indicated): Date CC: Sandra Morales MD PARTIAL THROMBOPLAST Collected: 07/17/2018 Status: F Source: [place] TIME 10:35 PM [facility] REPOSITORY TYPE CODE TESTS RESULT OUT OF REFERENCE UNITS RANGE LAB L300.4310 24.1-36.2 Seconds High alert PTT 122.2 Result Comment: CRITICAL VALUE VERIFIED. CALLED TO [facility] 07/17/182258 Suzanne Oneil. RESULTS READ BACK BY SAME . Performed By: #### L300.4310 #### [facility] [address] [place], [address] TROPONIN-I Collected: 07/17/2018 Status: F Source: [place] 10:35 PM [facility] REPOSITORY Order Comment: 'TROP' Serial specimen #1, #2 or #3: 2 TYPE CODE TESTS RESULT OUT OF RANGE REFERENCE UNITS LAB L501.4010 <0.045 ng/mL Normal < 0.015 TROPONIN-I Result Comment: TROPONIN-I EXPECTED VALUES <0.045 Negative 0.045 - 0.590 Consistent with Cardiac Damage > OR = 0.600 Critical Value Not every elevated troponin is indicative of VT. These values should be used with clinical judgement in examining the patient's clinical picture for diagnosis. To establish a diagnosis of VT versus myocardial injury, there must be a demonstrated rise and/or fall in the troponin values, in addition to ischemic symptoms, EKG changes, new regional wall motion abnormality, and/or angiographical evidence. PLEASE NOTE: REFERENCE RANGES EDITED 18 Performed By: #### L501.4010 #### [facility] [address] [place], [place], [address] CONSULTATION Observed: 07/17/2018 Status: F Source: [place] 8:41 PM [facility] REPOSITORY [facility] Medical Records Department [address] [place] [address] Consultation 07/17/182028 MR#: [id number] Acct: [id number] Name: SUSANNE COLINDRES Rep #: [id number] : 1950 67 From: Sami Oleary MD PCP: Sandra Morales MD Status: ADM IN Y Location: [place] [id number] Problem List (1) Atrial fibrillation Status: Acute [...] care. She was subsequently transported to the [facility] emergency department. There she initiated evaluation with [...] Hyperlipidemia (Chronic) Hypertension (Chronic) Psychiatric History: Depression INSURANCE VERIFIER History: No pertinent INSURANCE VERIFIER history - *Family History Maternal Family History: [...] Normal S2 Murmur Murmur: Grade 3/6, Holosystolic, Harper, Axilla Vascular: No Carotid Bruits Abdomen: Bowel [...] thickening/calcification with moderate MR, mild TR, mild NC, and an estimated RV systolic pressure of [...] is been no evidence of acute coronary syndrome/VT. She has had no evidence of acute [...] the patient. This note was generated with Pharmalinkation software. It may contain incorrect words, spelling, and punctuation that were not noted in checking the note before signing. 07/17/182040 <Electronically signed by Sami Oleary MD> Date Sami Oleary MD Cosigner Signature (if applicable): Date CC: Sandra Morales MD; Sami Oleary MD Signed TROPONIN-I Collected: 07/17/2018 Status: F Source: [place] 7:58 PM [facility] REPOSITORY Order Comment: 'TROP' Serial specimen #1, #2 or #3: 2 TYPE CODE TESTS RESULT OUT OF RANGE REFERENCE UNITS LAB L501.4010 <0.045 ng/mL Normal < 0.015 TROPONIN-I Result Comment: TROPONIN-I EXPECTED VALUES <0.045 Negative 0.045 - 0.590 Consistent with Cardiac Damage > OR = 0.600 Critical Value Not every elevated troponin is indicative of VT. These values should be used with clinical judgement in examining the patient's clinical picture for diagnosis. To establish a diagnosis of VT versus myocardial injury, there must be a demonstrated rise and/or fall in the troponin values, in addition to ischemic symptoms, EKG changes, new regional wall motion abnormality, and/or angiographical evidence. PLEASE NOTE: REFERENCE RANGES EDITED 18 Performed By: #### L501.4010 #### [facility] [address] [place], [address] CARDIOLOGY VISIT Observed: 07/17/2018 Status: F Source: [place] REPORT 5:51 PM [facility] REPOSITORY [facility] [address] [place] [address] OFFICE VISIT Date of Service: 07/17/18 MR#: [id number] Acct: [id number] Name: SUSANNE COLINDRES Rep #: [id number] : 1950 Provider: Sami Oleary MD Age/Sex: 67/F Location: [facility] Status: Signed HPI HPI Chief Complaint: SOLUMEDROL Details: SUSANNE COLINDRES, is a 67 F [...] mg PO DAILY 07/17/18 [History Confirmed 07/17/18] [facility] Medical History SOB (shortness of breath) (Acute) [...] was recommended that she present to the [facility] emergency department for further evaluation and care. [...] this. That she was escorted to the [facility] emergency department for further evaluation and care. Her case was discussed with Dr. Armstrong of the [facility] emergency department staff. Thank you for allowing [...] thyroid E07.9 Shortness of breath R06.02 07/17/18 1421 <Electronically signed by Sami Oleary MD> Date Sami Oleary MD Cosigner Signature: Date (if applicable) CC: Sandra Morales MD HISTORY AND PHYSICAL Observed: 07/17/2018 Status: F Source: [place] EXAM 5:36 PM [facility] REPOSITORY [facility] Medical Records Department [address] [facility] [place] [address] History and Physical 07/17/18 1716 MR#: [id number] Acct: [id number] Name: SUSANNE COLINDRES Rep #: [id number] : 1950 67 From: Silvio JARQUIN PCP: Sandra Morales MD Status: REG ER Y Location: [...] arthroplasty, - - tubal Psychiatric History: Depression INSURANCE VERIFIER History: No pertinent INSURANCE VERIFIER history Lives: Spouse/ Significant Other Smoking Status: [...] proteinuria - Pt of Dr. Quinones in [place], on acthar for proteinuria. 3. Hypothyroid - [...] Slater PA-C under the supervision of Doctor Sharri. <Fermin Harrell - Last Filed: 07/17/18 17:36> [...] of tubal ligation Z98.51 Psychiatric History: Depression INSURANCE VERIFIER History: No pertinent INSURANCE VERIFIER history Lives: Spouse/ Significant Other Smoking Status: [...] with the above note by the physician customer care assistant. 1. Atrial fibrillation with RVR * Minimal response with IV metoprolol * Patient started on diltiazem bolus and drip * Started on heparin drip * Cardiology consult * Echocardiogram 2. Hypothyroidism * TSH elevated * Check free T4 and T3 3. Chronic kidney disease, stage III * Creatinine is 1.13 * Patient has noted proteinuria * Follow-up with her supervisor histology as outpatient * Code Visit Inpatient E AND M: 35749 Init Hosp L3 07/17/18 1726 <Electronically signed by Silvio JARQUIN> Date Silvio JARQUIN 07/17/18 1736<Electronically signed by Fermin CANTU Cosigner Signature: Date (if applicable) Fermin Harrell DO CC: MILKA Slater; Sandra Morales MD; Fermin Harrell DO Signed CHEST 1 VIEW Observed: 07/17/2018 Status: F Source: [place] (PORTABLE) 4:07 PM [facility] REPOSITORY [facility] Imaging Services [address] [place] [address] Chest 1 View (Portable) MR#: [id number] Acct: [id number] Name: SUSANNE COLINDRES Rep #: [id number] : 1950 F 67 From: Fay Valencia MD PCP: Sandra Morales MD Status: PRE ER Study: Chest 1 View (Portable) Date of Exam: 07/17/18 Exam# [id number] Ordering Dr: Jung Vallejo DO STUDY: X-RAY [...] 16:20 EDT , Service support , CC: Sandar Morales MD; Jung Vallejo DO Air [employer] Pilot: Signed PROTHROMBIN TIME W/INR Collected: 07/17/2018 Status: F Source: [place] 4:05 PM [facility] REPOSITORY TYPE CODE TESTS RESULT OUT OF RANGE REFERENCE UNITS LAB L300.4150 11.7-14.9 SECONDS Normal PROTIME 14.4 LAB L300.4200 Normal INR 1.1 Performed By: #### L300.3900, L300.4310 #### [facility] [address] [place], [place], [address] PARTIAL THROMBOPLAST Collected: 07/17/2018 Status: F Source: [place] TIME 4:05 PM [facility] REPOSITORY TYPE CODE TESTS RESULT OUT OF RANGE REFERENCE UNITS LAB L300.4310 24.1-36.2 Seconds Normal PTT 28.9 Performed By: #### L300.3900, L300.4310 #### [facility] [address] [place], [address] LIVER PROFILE Collected: 07/17/2018 Status: F Source: [place] 4:05 PM [facility] REPOSITORY TYPE CODE TESTS RESULT OUT OF [...] By: #### L500.3400, L501.4010, L501.5200, L501.9520 #### [facility] [address] [place], [place], [address] TROPONIN-I Collected: 07/17/2018 Status: F Source: [place] 4:05 PM [facility] REPOSITORY TYPE CODE TESTS RESULT OUT OF RANGE REFERENCE UNITS LAB L501.4010 <0.045 ng/mL Normal < 0.015 TROPONIN-I Result Comment: TROPONIN-I EXPECTED VALUES <0.045 Negative 0.045 - 0.590 Consistent with Cardiac Damage > OR = 0.600 Critical Value Not every elevated troponin is indicative of VT. These values should be used with clinical judgement in examining the patient's clinical picture for diagnosis. To establish a diagnosis of VT versus myocardial injury, there must be a demonstrated rise and/or fall in the troponin values, in addition to ischemic symptoms, EKG changes, new regional wall motion abnormality, and/or angiographical evidence. PLEASE NOTE: REFERENCE RANGES EDITED 18 Performed By: #### L500.3400, L501.4010, L501.5200, L501.9520 #### [facility] [address] [facility] [place], [address] MAGNESIUM Collected: 07/17/2018 Status: F Source: [place] 4:05 PM [facility] REPOSITORY TYPE CODE TESTS RESULT OUT OF RANGE REFERENCE UNITS LAB L501.5200 1.6-2.6 mg/dL Normal MG 1.9 Performed By: #### L500.3400, L501.4010, L501.5200, L501.9520 #### [facility] [address] [facility] [place], [address] THYROID STIM HORMONE Collected: 07/17/2018 Status: F Source: [place] (TSH) 4:05 PM [facility] REPOSITORY TYPE CODE TESTS RESULT OUT OF RANGE REFERENCE UNITS LAB L501.9520 0.358-3.74 uIU/mL High TSH 5.57 Performed By: #### L500.3400, L501.4010, L501.5200, L501.9520 #### [facility] [address] [facility] [place], [address] 12 LEAD EKG PERFORMED Observed: 07/17/2018 Status: F Source: [place] [facility] 3:12 PM [facility] REPOSITORY [facility] [address] [place] [address] 12 Lead EKG performed by BMS 07/17/181510 MR#: [id number] Acct: [id number] Name: SUSANNE COLINDRES Rep #: [id number] : 1950 67 From: Sami Oleary MD Attending Dr: Sami Oleary MD Status: REG AMB Ordering Dr: Sami Oleary MD Date: 07/17/18 Location: [facility] Sex: F C Admitted: BMS/12 Lead EKG performed by [facility] ECG Report Interpretation Atrial flutter-fibrillation Poor R wave progressionABNORMAL RHYTHMElectronically signed on 07/17/2018 at 15:42 by Sami Oleary Software Version 8610 07/17/18 1546 Date Sami Oleary MD CC: Sandra Morales MD Date Dictated: 07/17/181510 Date Transcribed: 07/17/181510 [employer] Pilot: PM Signed CBC-COMPLETE BLOOD CNT Collected: 07/17/2018 Status: F Source: [place] NO DIFF 12:35 PM [facility] REPOSITORY TYPE CODE TESTS RESULT OUT OF [...] MPV 10.7 Performed By: #### L100.0500 #### [facility] [address] [facility] [place], [address] PROTEIN+CREATININE Collected: Status: F Source: [place] RATIO,URINE 07/17/2018 12:35 PM [facility] REPOSITORY TYPE CODE TESTS RESULT OUT OF RANGE REFERENCE UNITS LAB L501.1200 NO RANGE EST. mg/dL Normal UR CREAT 229.00 LAB L501.1930 <11.9 mg/dL High 189.9 PROTEIN,UR.R AN. LAB L501.1940 0-200 mg/g CRE High PROT:CRE 829 RATIO Performed By: #### L501.0900 #### [facility] [address] [facility] [place], [place], [address] RENAL PROFILE Collected: 07/17/2018 Status: F Source: [place] 12:35 PM [facility] REPOSITORY TYPE CODE TESTS RESULT OUT OF [...] CO2 29.0 Performed By: #### L500.3600 #### [facility] [address] [place], [place], [address] CBC-COMPLETE BLOOD CNT Collected: 06/09/2018 Status: F Source: [place] NO DIFF 8:31 AM [facility] REPOSITORY TYPE CODE TESTS RESULT OUT OF [...] MPV 10.8 Performed By: #### L100.0500 #### [facility] [address] [place], [place], [address] PROTEIN+CREATININE Collected: Status: F Source: [place] RATIO,URINE 06/09/2018 8:31 AM [facility] REPOSITORY TYPE CODE TESTS RESULT OUT OF RANGE REFERENCE UNITS LAB L501.1200 NO RANGE EST. mg/dL Normal UR CREAT 132.00 LAB L501.1930 <11.9 mg/dL High 132.4 PROTEIN,UR.R AN. LAB L501.1940 0-200 mg/g CRE High PROT:CRE 1003 RATIO Performed By: #### L501.0900 #### [facility] [address] [facility] [place], [place], [address] RENAL PROFILE Collected: 06/09/2018 Status: F Source: [place] 8:31 AM [facility] REPOSITORY TYPE CODE TESTS RESULT OUT OF [...] 29.0 Performed By: #### L500.3600, L500.4100 #### [facility] [address] [place], [address] LIPID PROFILE Collected: 06/09/2018 Status: F Source: [place] 8:31 AM [facility] REPOSITORY TYPE CODE TESTS RESULT OUT OF [...] 7 Performed By: #### L500.3600, L500.4100 #### [facility] [address] [place], [address] CNCO Observed: 05/19/2018 Status: COMPLETED Source: [place] 12:00 AM [facility] REPOSITORY Letter Text [facility] Department of Internal Medicine [address] [facility] [place], [place] [address] Susanne Colindres [address] [facility] [address] May 19, 2018 Dear , Due to unforeseen circumstances, there has been a change in the schedule for Dr Morales. Your original appointment scheduled for 09/29/2018 at 9:20 AM has been rescheduled to 09/15/2018 at 9:40 AM. If this is not convenient, please give our office a call at [phone]. I apologize for any inconvenience this may cause you. Sincerely, Department of Internal Medicine [facility] URINALYSIS, ROUTINE Collected: 05/09/2018 Status: F Source: [place] (DIPSTICK) 6:41 AM [facility] REPOSITORY Order Comment: How was Urine Obtained? [...] ESTERASE Negative Performed By: #### L400.2010 #### [facility] [address] [place], [address] PROTEIN+CREATININE Collected: Status: F Source: [place] RATIO,URINE 05/09/2018 6:41 AM [facility] REPOSITORY TYPE CODE TESTS RESULT OUT OF RANGE REFERENCE UNITS LAB L501.1200 NO RANGE EST. mg/dL < Normal UR 13.00 CREAT LAB L501.1930 <11.9 mg/dL High 28.8 PROTEIN,UR. RAN. LAB L501.1940 0-200 mg/g CRE Test Normal not performed PROT:CRE RATIO Performed By: #### L501.0900 #### [facility] [address] [place], [address] BASIC METABOLIC Collected: 05/09/2018 Status: F Source: [place] PROFILE (BMP) 6:41 AM [facility] REPOSITORY TYPE CODE TESTS RESULT OUT OF [...] GAP 6 Performed By: #### L500.2500 #### [facility] [address] [place], [place], [address] BASIC METABOLIC Collected: 05/08/2018 Status: F Source: [place] PROFILE (BMP) 6:58 AM [facility] REPOSITORY TYPE CODE TESTS RESULT OUT OF [...] GAP 4 Performed By: #### L500.2500 #### [facility] [address] [place], [address] CARDIOLOGY VISIT Observed: 04/24/2018 Status: F Source: [place] REPORT 11:24 AM [facility] REPOSITORY [facility] [address] [place] [address] OFFICE VISIT Date of Service: 04/24/18 MR#: [id number] Acct: [id number] Name: SUSANNE COLINDRES Rep #: [id number] : 1950 Provider: Sami Oleary MD Age/Sex: 67/F [place] [facility] Status: Signed HPI HPI Details: SUSANNE COLINDRES, [...] PO QDAY tab 04/24/18 [History Confirmed 04/24/18] [facility] Medical History SOB (shortness of breath) (Acute) [...] Sami Oleary MD> Date [facility] Signature: Date (if applicable) CC: Sandra Morales MD CNCO Observed: 03/28/2018 Status: COMPLETED Source: [place] 12:24 PM [facility] REPOSITORY HNO ID: [id number] Author: Mammography Coordinator Service: (none) Author Type: Physician Type: Letter Filed: 03/31/2018 11:33 PM Note Text: March 28, 2018 PID: [id number] Susanne Colindres [address] [place] [address] Dear Ms. Colindres, We are pleased to [...] report will be kept on file at [facility] as part of your permanent medical record and are available for your continuing care. Thank you for allowing us to help in meeting your health care needs. Sincerely, Dr. Collazo Interpreting Radiologist [facility] (Normal over 40) [facility] SCREENING Observed: 03/28/2018 Status: F Source: [place] 11:45 AM [facility] REPOSITORY * * *Final Report* * * DATE OF EXAM: Mar 28 2018 11:45AM [facility] 0581 - [facility] SCREENING / PROCEDURE REASON: Encounter for screening mammogram for malignant neoplasm of breast * * * * Physician Interpretation * * * * RESULT: #[id number] - [facility] SCREENING BILATERAL DIGITAL SCREENING MAMMOGRAM WITH CAD: 03/28/2018 HISTORY: Screening Mammogram - patient reports NO breast symptoms /priors available for comparison. RESULT: TECHNIQUE: The study was acquired using full field digital technology and interpreted from soft copy. Current study was also evaluated with a Computer Aided Detection (CAD). Comparison is made to exams dated: 01/14/2017 mammogram - [facility], 11/22/2015 mammogram - [facility], and 10/10/2015 mammogram - [facility]. The tissue of both breasts is heterogeneously dense. This may lower the sensitivity of mammography. No significant masses, calcifications, or other findings are seen in either breast. There has been no significant interval change. IMPRESSION: NEGATIVE There is no mammographic evidence of malignancy.A 1 year screening mammogram is recommended. Dominick antunez/deandre:03/28/2018 12:24:23 Caramel Candy Maker: Abigail GARSIA)(Gisel), [facility] letter sent: Normal over 40 Mammogram BI-RADS: 1 Negative Air Force Pilot: Deandre Transcribe Date/Time: Mar 28 2018 11:09A Dictated by: DOMINICK COLLAZO MD This examination was interpreted and the report reviewed and electronically signed by: DOMINICK COLLAZO MD on Mar 28 2018 12:24PM EST [id number] PROGRESS Observed: 03/28/2018 Status: COMPLETED Source: [place] 11:06 AM [facility] REPOSITORY HNO ID: [id number] Author: Dalila Aguayo Service: (none) Author Type: [...] IMPLANT DATA REVIEWED: Not Applicable RADIOLOGY DEPARTMENT: [facility] IV DATA: Not applicable SIGNED BY: Dalila Aguayo March 28, 2018 11:07 AM PROGRESS Observed: 03/28/2018 Status: COMPLETED Source: [place] 10:37 AM [facility] REPOSITORY HNO ID: [id number] Author: Sandra Morales Service: (none) Author Type: Physician Type: [...] Laterality Date - COLONOSCOP W/ OR W/O [facility] SPEC 11/02/2013 Colonoscopy - [facility], DIAG AND/OR THERAPEUTIC prior to 1994 Dilation AND curettage/polypectomy - LIGATE FALLOPIAN TUBE 1979 Tubal ligation - TOTAL HIP REPLACEMENT 10/16/2011 Hip replacement, total right - [facility] Dr. Schofield - FAMILY HISTORY Problem Relation [...] next visit - Goal of BP <130/80 SANDRA MORALES MD CNOV Observed: 03/28/2018 Status: COMPLETED Source: [place] 9:40 AM [facility] REPOSITORY Office Visit (INTMWS) SUSANNE COLINDRES ([id number]) 1950 F Date Time Provider Department 03/28/18 9:40 AM SANDRA MORALES INTMWS During your visit today, we recorded the following information about you: Pulse Respiration Blood pressure Weight 66/minute 16/minute 130/70 63.1 kg SANDRA MORALES MD 03/28/2018 1:04 PM Signed Reason [...] Laterality Date - COLONOSCOP W/ OR W/O [facility] SPEC 11/02/2013 Colonoscopy - DANDC, DIAG AND/OR THERAPEUTIC prior to 1994 Dilation AND curettage/polypectomy - LIGATE FALLOPIAN TUBE 1979 Tubal ligation - TOTAL HIP REPLACEMENT 10/16/2011 Hip replacement, total right - [facility] Dr. Schofield - FAMILY HISTORY Problem Relation [...] next visit - Goal of BP <130/80 SANDRA MORALES MD Referring Provider: SANDRA MORALES [[id number]] Allergies As of Date: 03/28/2018 Noted Allergy Reaction LISINOPRIL 03/03/2009 3 - Cough PENICILLINS 01/31/2006 Comments: yeast infection Date Reviewed: 10/28/2017 Reviewed by: Suly Calles LPN - Fully Assessed Reason for [...] on saturdayDisp: 90 tabletRfl: 3 TSH BLD [SQTSH] Order #: [id number] FUTURE LIPID PANEL BASIC [SQLIPB] Order #: [id number] FUTURE GHANSHYAM SCREENING [9050225] Order #: [id number] FUTURE PNEUMOCOCCAL-13 VACCINE PCV-13 [[id number]] Order #: [id number] Prescriptions as of 03/28/2018 Sig: ATENOLOL 25 [...] [I34.0] INVALID FOR* Pulmonary hypertension, secondary (HCC) [COH050*INVALID FOR* Proteinuria [R80.9] INVALID FOR* Stage 3 [...] is not on file. Encounter Status:Closed by SANDRA MORALES MD on 03/28/18 CNPTOUTREA Observed: 03/11/2018 Status: COMPLETED Source: [place] 12:00 AM [facility] REPOSITORY Patient Outreach (FAMPST) SUSANNE COLINDRES ([id number]) 1950 F Date Time Provider Department 03/11/18 SANDRA MORALES FAMPST During your visit today, we recorded the following information about you: Allergies As of Date: 03/11/2018 Noted Allergy Reaction LISINOPRIL 03/03/2009 3 - Cough PENICILLINS 01/31/2006 Comments: yeast infection Date Reviewed: 10/28/2017 Reviewed by: Suly Calles LPN - Fully Assessed Visit Diagnosis:Medication management [Z79.899] Order(s):HGB A1C [ZHLUX0H] Order #: [id number] FUTURE Prescriptions as of 03/11/2018 Sig: X [...] [I34.0] INVALID FOR* Pulmonary hypertension, secondary (HCC) [RUN701*INVALID FOR* Proteinuria [R80.9] INVALID FOR* Stage 3 chronic kidney disease [N18.3] INVALID FOR* More... Dependent edema [R60.9] INVALID FOR* Nephrotic syndrome [N04.9] INVALID FOR* More... Encounter Status:Closed by ActiveSec, PRODUSER on 07/25/18 CBC-COMPLETE BLOOD CNT Collected: 03/07/2018 Status: F Source: HECTOR NO DIFF 6:43 AM [facility] REPOSITORY TYPE CODE TESTS RESULT OUT OF [...] MPV 9.4 Performed By: #### L100.0500 #### [facility] [address] [facility] [facility] [place], [place], [address] PROTEIN+CREATININE Collected: Status: F Source: [place] RATIO,URINE 03/07/2018 6:43 AM [facility] REPOSITORY TYPE CODE TESTS RESULT OUT OF RANGE REFERENCE UNITS LAB L501.1200 NO RANGE EST. mg/dL Normal UR CREAT 78.40 LAB L501.1930 <11.9 mg/dL High 149.9 PROTEIN,UR.R AN. LAB L501.1940 0-200 mg/g CRE High PROT:CRE 1912 RATIO Performed By: #### L501.0900 #### [facility] [address] [facility]. [place], [place], [address] RENAL PROFILE Collected: 03/07/2018 Status: F Source: [place] 6:43 AM [facility] REPOSITORY TYPE CODE TESTS RESULT OUT OF [...] CO2 29.0 Performed By: #### L500.3600 #### [facility] [address] [place], [place], [id number] URINALYSIS, ROUTINE Collected: 03/07/2018 Status: F Source: HECTOR (DIPSTICK) 6:43 AM [facility] REPOSITORY Order Comment: How was Urine Obtained? [...] ESTERASE Negative Performed By: #### L400.2010 #### [facility] [address] [place], [place], [address] PROTEIN+CREATININE Collected: Status: F Source: [place]ECT[place] RATIO,URINE 02/21/2018 8:26 AM [facility] REPOSITORY TYPE CODE TESTS RESULT OUT OF RANGE REFERENCE UNITS LAB L501.1200 NO RANGE EST. mg/dL Normal UR CREAT 14.60 LAB L501.1930 <11.9 mg/dL High 79.2 PROTEIN,UR.R AN. LAB L501.1940 0-200 mg/g CRE High PROT:CRE 5425 RATIO Performed By: #### L501.0900 #### [facility] [address] [place], [address] URINALYSIS, COMPLETE Collected: 01/15/2018 Status: F Source: HECTOR 10:18 AM [facility] REPOSITORY Order Comment: How was Urine Obtained? [...] URINE SEEN Performed By: #### L400.0001 #### [facility] [address] [place], [place], [address] CBC-COMPLETE BLOOD CNT Collected: 01/15/2018 Status: F Source: HECTOR NO DIFF 10:18 AM [facility] REPOSITORY TYPE CODE TESTS RESULT OUT OF [...] MPV 10.5 Performed By: #### L100.0500 #### [facility] [address] [place], [place], [address] PROTEIN+CREATININE Collected: Status: F Source: [place]ECT[place] RATIO,URINE 01/15/2018 10:18 AM [facility] REPOSITORY TYPE CODE TESTS RESULT OUT OF RANGE REFERENCE UNITS LAB L501.1200 NO RANGE EST. mg/dL Normal UR CREAT 33.70 LAB L501.1930 <11.9 mg/dL High 181.5 PROTEIN,UR.R AN. LAB L501.1940 0-200 mg/g CRE High PROT:CRE 5386 RATIO Performed By: #### L501.0900 #### [facility] [address] [place], [place], [address] BASIC METABOLIC Collected: 01/15/2018 Status: F Source: HECTOR PROFILE (BMP) 10:18 AM [facility] REPOSITORY TYPE CODE TESTS RESULT OUT OF [...] GAP 5 Performed By: #### L500.2500 #### [facility] [address] [place], [place], [address] CBC-COMPLETE BLOOD CNT Collected: 11/15/2017 Status: F Source: HECTOR NO DIFF 9:51 AM [facility] REPOSITORY Order Comment: WANTS THE LIPID CBC [...] MPV 10.3 Performed By: #### L100.0500 #### [facility] [address] [place], [address] PROTEIN+CREATININE Collected: Status: F Source: [place]ECT[place] RATIO,URINE 11/15/2017 9:51 AM [facility] REPOSITORY Order Comment: WANTS THE LIPID CBC RENAL PROCRE WANTS THE TSH T4F TYPE CODE TESTS RESULT OUT OF RANGE REFERENCE UNITS LAB L501.1200 NO RANGE EST. mg/dL Normal UR CREAT 63.10 LAB L501.1930 <11.9 mg/dL High 388.7 PROTEIN,UR.R AN. LAB L501.1940 0-200 mg/g CRE High PROT:CRE 6160 RATIO Performed By: #### L501.0900 #### [facility] [address] [place], [address] RENAL PROFILE Collected: 11/15/2017 Status: F Source: HECTOR 9:51 AM [facility] REPOSITORY Order Comment: WANTS THE LIPID CBC [...] By: #### L500.3600, L500.4100, L501.9520, L506.0400 #### [facility] [address] [place], [place], [address] LIPID PROFILE Collected: 11/15/2017 Status: F Source: HECTOR 9:51 AM [facility] REPOSITORY Order Comment: WANTS THE LIPID CBC [...] By: #### L500.3600, L500.4100, L501.9520, L506.0400 #### [facility] [address] [place], [address] THYROID STIM HORMONE Collected: 11/15/2017 Status: F Source: HECTOR (TSH) 9:51 AM [facility] REPOSITORY Order Comment: WANTS THE LIPID CBC RENAL PROCRE WANTS THE TSH T4F TYPE CODE TESTS RESULT OUT OF RANGE REFERENCE UNITS LAB L501.9520 0.358-3.74 uIU/mL Low TSH 0.25 Performed By: #### L500.3600, L500.4100, L501.9520, L506.0400 #### [facility] [address] [place], [address] T4 FREE DIRECT Collected: 11/15/2017 Status: F Source: HECTOR 9:51 AM [facility] REPOSITORY Order Comment: WANTS THE LIPID CBC RENAL PROCRE WANTS THE TSH T4F TYPE CODE TESTS RESULT OUT OF REFERENCE UNITS RANGE LAB L506.0400 0.76-1.46 ng/dL High T4 FREE 1.77 DIRECT Performed By: #### L500.3600, L500.4100, L501.9520, L506.0400 #### [facility] [address] [place], [address] ALLERGIES ALLERGIES DATE TYPE / CODE NAME / CODE REACTION SEVERITY SOURCE 10/28/2018 Drug Penicillins/[id number] Unknown Unknown [place] Allergy/416 0476(RXNORM) [facility] 328944([facility] ED CT) Repository 10/28/2018 Drug lisinopril/[id number] cough [place] Allergy/416 658(RXNORM) [facility] 149028([facility] ED CT) Repository 03/03/2009 DRUG LISINOPRIL COUGH [facility] INGREDI/[address] [address]([facility] Repository ED CT) 01/31/2006 Drug PENICILLINS [facility] Class/[address] 100[address]([facility] Repository CT) ENCOUNTERS ENCOUNTERS ADMIT/DISCHARGE ACCOUNT ADMITTING ENCOUNTER LOCATION SOURCE NUMBER CLASS 11/05/2018 [id number] Ambulatory [facility] ing:LAB Repository 10/28/2018/10/28/19 [id number] Ambulatory BMSBuilding:B [place] [facility] Repository 09/16/2018/09/16/20 [id number] Ambulatory BMSBuilding:B [place] 18 [facility] Repository 09/15/2018/09/15/20 [id number] Ambulatory [address] Repository 09/15/2018/09/16/20 [id number] Ambulatory [address] Repository 09/09/2018 [id number] Ambulatory BMSBuilding:B [place] MS.[facility] Repository 09/09/2018 [id number] Ambulatory BMSBuilding:B [place] MS.[facility] Repository 09/09/2018/09/09/20 [id number] Ambulatory [address] ing:CLSP Repository 08/26/2018/08/26/20 [id number] Ambulatory BMSBuilding:B [place] 18 [facility] Repository 08/20/2018 [id number] Ambulatory [facility] ing:LAB.FUTUR Repository E 08/01/2018 [id number] Ambulatory [facility] ing:LAB Repository 08/01/2018/08/01/20 [id number] Ambulatory BMSBuilding:B [place] 18 [facility] Repository 07/17/2018/07/19/20 [id number] Fermin Harrell Inpatient [address] ing:PCURoom: Repository [id number]: 1 07/17/2018 [id number] Fermin Harrell Ambulatory BMSBuilding:B [place] MS.[facility] Repository 07/17/2018 [id number] Fermin Harrell Ambulatory BMSBuilding:B [place].[facility] Repository 07/17/2018 [id number] Fermin Harrell Ambulatory BMSBuilding:B [place] MS.[facility] Repository 07/17/2018 [id number] Fermin Harrell Ambulatory BMSBuilding:B [place] MS.[facility] Repository 07/17/2018 [id number] Fermin Harrell Ambulatory BMSBuilding:B [place] MS.[facility] Repository 07/17/2018/07/19/20 [id number] Ambulatory BMSBuilding:W [place] 18 [facility] Repository 07/17/2018 [id number] Ambulatory BMSBuilding:B [place] MS.[facility] Repository 07/17/2018/07/17/20 [id number] Ambulatory BMSBuilding:B [place] 18 [facility] Repository 07/17/2018 [id number] Ambulatory [facility] Hospital ing:LAB Repository 06/09/2018 [id number] Ambulatory [facility] ing:LAB Repository 05/09/2018 [id number] Ambulatory [facility] Hospital ing:LAB.FUTUR Repository E 05/08/2018 [id number] [facility] Repository 04/24/2018/04/24/20 [id number] Ambulatory BMSBuilding:B [place] 18 [facility] Repository 03/28/2018/03/28/20 [id number] Ambulatory [address] Repository 03/28/2018/03/31/20 [id number] Ambulatory [address] Repository 03/07/2018 [id number] Ambulatory [facility] ing:LAB Repository 02/21/2018 [id number] Ambulatory [facility] ing:LAB Repository 02/12/2018 [id number] Ambulatory [facility] Hospital ing:MEDOUTP Repository 02/11/2018 [id number] Ambulatory [facility] Hospital ing:MEDOUTP Repository 02/10/2018 [id number] Ambulatory [facility] ing:MEDOUTP Repository 01/15/2018 [id number] Ambulatory [facility] ing:LAB.FUTUR Repository E 11/15/2017 [id number] Ambulatory [facility] ing:LAB Repository PAYERS PAYERS ENCOUNTER GUARANTOR PAYER SUBSCRIBER SOURCE 11/05/2018 SUSANNE S Primary SUSANNE S [place] [id number] Insurance:MEDICARE BOWENDOB: [facility] PART A [facility] [id number] [place] Number: Repository [address]Aqe: (375) [id number] [phone] (HP) Date:2018-11-05 11/05/2018 Secondary SUSANNE S [place] Insurance:AETNA BOWENDOB: [facility] [id number] Hospital Number: Repository [id number] Date:4380-05-49PLOOR SENIOR SUPPLEMENT [address] [address], [place] [address]ET: 11/05/2018 Tertiary NOT GIVENUNK [place] Insurance:SELF PAY [facility] Number: Effective Repository Date:2018-11-05 10/28/2018 SUSANNE S Primary SUSANNE S [place] [id number] Insurance:MEDICARE BOWENDOB: [facility] [id number] [place] Number: Repository [address]Zvl: 330 [id number] [phone] () Date:2018-04-24 10/28/2018 Secondary SUSANNE S [place] Insurance:AETNA SR BOWENDOB: Community SUPPLEMENT [facility] [id number] Hospital Number: Repository [id number] Date:5653-27-32QFOAC SENIOR SUPPLEMENT [address] [address], [place] [address]NV: 10/28/2018 Tertiary NOT GIVENUNK [place] Insurance:SELF PAY [facility] Hospital Number: Effective Repository Date:2018-10-28 09/16/2018 SUSANNE S Primary SUSANNE S [place] [id number] Insurance:MEDICARE BOWENDOB: [facility] [id number] Number: Repository [address]Gnb: 330 [id number] [phone] () Date:2018-08-12 09/16/2018 Secondary SUSANNE S [place] Insurance:AETNA SR BOWENDOB: Community SUPPLEMENT [facility] [id number] Hospital Number: Repository [id number] Date:5142-98-33KUJRB SENIOR SUPPLEMENT [address] [address], [place] [address]XM: 09/16/2018 Tertiary NOT GIVENUNK [place] Insurance:SELF PAY [facility] Hospital Number: Effective Repository Date:2018-09-16 09/09/2018 SUSANNE S Primary SUSANNE S [place] [id number] Insurance:MEDICARE BOWENDOB: [facility] [id number] [facility] [place] Number: Repository [address]Too: 330 [id number] [phone] (HP) Date:2018-08-12 09/09/2018 Secondary SUSANNE S [place] Insurance:AETNA SR BOWENDOB: Community SUPPLEMENT [facility] [id number] Hospital Number: Repository [id number] Date:0543-93-81KLPFB SENIOR SUPPLEMENT [address] [place] [address]QS: 09/09/2018 Tertiary NOT GIVENUNK [place] Insurance:SELF PAY [facility] Hospital Number: Effective Repository Date:2018-09-09 09/09/2018 SUSANNE S Primary SUSANNE S [place] [id number] Insurance:MEDICARE BOWENDOB: [facility] [id number] [facility] [place] Number: Repository [address]Xqf: 330 [id number] [phone] (HP) Date:2018-08-12 09/09/2018 Secondary SUSANNE S [place] Insurance:AETNA SR BOWENDOB: Community SUPPLEMENT [facility] [id number] Hospital Number: Repository [id number] Date:1307-97-60PPRAQ SENIOR SUPPLEMENT [address] [place] [address]YZ: 09/09/2018 Tertiary NOT GIVENUNK [place] Insurance:SELF PAY [facility] Hospital Number: Effective Repository Date:2018-09-09 09/09/2018 SUSANNE S Primary SUSANNE S [place] [id number] Insurance:MEDICARE BOWENDOB: [facility] [id number] [facility]urban Medical [facility] [place] Number: Repository [address]Jjl: 330 [id number] [phone] (HP) Date:2018-08-12 09/09/2018 Secondary SUSANNE S [place] Insurance:AETNA SR BOWENDOB: Community SUPPLEMENT [facility] [id number] Hospital Number: Repository [id number] Date:8026-92-01WZEJH SENIOR SUPPLEMENT [address] [address]BJVMBMRPD, [place] [address]YM: 09/09/2018 Tertiary NOT GIVENUNK [place] Insurance:SELF PAY [facility] Hospital Number: Effective Repository Date:2018-08-12 08/26/2018 SUSANNE S Primary SUSANNE S [place] [id number] Insurance:MEDICARE BOWENDOB: [facility] [id number] Number: Repository [address]Atc: 330 [id number] [phone] () Date:2018-08-25 08/26/2018 Secondary SUSANNE S [place] Insurance:AETNA SR BOWENDOB: Community SUPPLEMENT [facility] [id number] Hospital Number: Repository [id number] Date:0864-75-59LHWHR SENIOR SUPPLEMENT [address] [address]XHF, [place] [address]UU: 08/26/2018 Tertiary NOT GIVENUNK [place] Insurance:SELF PAY [facility] Hospital Number: Effective Repository Date:2018-08-26 08/20/2018 SUSANNE S Primary SUSANNE S [place] [id number] Insurance:MEDICARE BOWENDOB: [facility] [id number], [place] Number: Repository [address]Gcg: 330 [id number] [phone] () Date:2018-08-08 08/20/2018 Secondary SUSANNE S [place] Insurance:AETNA SR BOWENDOB: Community SUPPLEMENT [facility] [id number] Hospital Number: Repository [id number] Date:5669-47-07RLLLW SENIOR SUPPLEMENT [address] [address], [place] [address]ZN: 08/20/2018 Tertiary NOT GIVENUNK [place] Insurance:SELF PAY [facility] Hospital Number: Effective Repository Date:2018-08-08 08/01/2018 SUSANNE S Primary SUSANNE S [place] [id number] Insurance:MEDICARE BOWENDOB: [facility] [id number], [place] Number: Repository [address]Usd: (129) [id number] [phone] (HP) Date:2018-08-01 08/01/2018 Secondary SUSANNE S [place] Insurance:AETNA SR BOWENDOB: Community SUPPLEMENT INSPolic [id number] Hospital Number: Repository [id number] Date:9136-97-72SWTSV SENIOR SUPPLEMENT [address] [address]MDJOF[address]VA[address] [place] [address]FV: 08/01/2018 Tertiary NOT GIVENUNK [place] Insurance:SELF PAY [facility] Hospital Number: Effective Repository Date:2018-08-01 08/01/2018 SUSANNE S Primary SUSANNE S [place] [id number] Insurance:MEDICARE BOWENDOB: [facility] [id number], [place] Number: Repository [address]Ene: 330 [id number] [phone] () Date:2018-07-30 08/01/2018 Secondary SUSANNE S [place] Insurance:AETNA SR BOWENDOB: Community SUPPLEMENT [facility] [id number] Hospital Number: Repository [id number] Date:9097-55-17QMDOF SENIOR SUPPLEMENT [address]QCCV[address] [place] [address]SR: 08/01/2018 Tertiary NOT GIVENUNK [place] Insurance:SELF PAY [facility] Hospital Number: Effective Repository Date:2018-08-01 07/17/2018 SUSANNE S Primary SUSANNE S [place] [id number] Insurance:MEDICARE BOWENDOB: [facility] [id number], [place] Number: Repository [address]Zes: 330 [id number] [phone] (HP) Date:2018-07-17 07/17/2018 Secondary SUSANNE S [place] Insurance:AETNA SR BOWENDOB: Community SUPPLEMENT [facility] [id number] Hospital Number: Repository [id number] Date:3843-93-61MZFOT SENIOR SUPPLEMENT [address] [address]WP[address]NU[address] [place] [address]DL: 07/17/2018 Tertiary NOT GIVENUNK [place] Insurance:SELF PAY Community [facility] Hospital Number: Effective Repository Date:2018-07-17 07/17/2018 SUSANNE S Primary SUSANNE S [place] [id number] Insurance:MEDICARE BOWENDOB: [facility] [id number], [place] Number: Repository [address]Fvl: 330 [id number] [phone] (HP) Date:2018-07-17 07/17/2018 Secondary SUSANNE S [place] Insurance:AETNA SR BOWENDOB: [facility] [id number] Hospital Number: Repository [id number] Date:0772-38-72VLHAO SENIOR SUPPLEMENT [address] [place] [address]RM: 07/17/2018 Tertiary NOT GIVENUNK [place] Insurance:SELF PAY [facility] Hospital Number: Effective Repository Date:2018-07-17 07/17/2018 SUSANNE S Primary SUSANNE S [place] [id number] Insurance:MEDICARE BOWENDOB: [facility] [id number] Number: Repository [address]Fqq: 330 [id number] [phone] () Date:2018-07-17 07/17/2018 Secondary SUSANNE S [place] Insurance:AETNA SR BOWENDOB: Community SUPPLEMENT [facility] [id number] Hospital Number: Repository [id number] Date:6635-10-35TTPCU SENIOR SUPPLEMENT [address] [place] [address]LH: 07/17/2018 Tertiary NOT GIVENUNK [place] Insurance:SELF PAY Community [facility] Hospital Number: Effective Repository Date:2018-07-17 07/17/2018 SUSANNE S Primary SUSANNE S [place] [id number] Insurance:MEDICARE BOWENDOB: [facility] [id number] [facility] [place] Number: Repository [address]Vvh: 330 [id number] [phone] () Date:2018-07-17 07/17/2018 Secondary SUSANNE S [place] Insurance:AETNA SR BOWENDOB: Community SUPPLEMENT INSPolicy [id number] Hospital Number: Repository [id number] Date:4230-14-46HXYCM SENIOR SUPPLEMENT [address]TZJYGCXGC[address] [place] [address]LB: 07/17/2018 Tertiary NOT GIVENUNK [place] Insurance:SELF PAY Community [facility] Hospital Number: Effective Repository Date:2018-07-17 07/17/2018 SUSANNE S Primary SUSANNE S [place] [id number] Insurance:MEDICARE BOWENDOB: [facility] [id number], [place] Number: Repository [address]Urm: 330 [id number] [phone] () Date:2018-07-17 07/17/2018 Secondary SUSANNE S [place] Insurance:AETNA SR BOWENDOB: [facility] [id number] Hospital Number: Repository [id number] Date:2057-76-36QFAAN SENIOR SUPPLEMENT [address] [address], [place] [address]UU: 07/17/2018 Tertiary NOT GIVENUNK [place] Insurance:SELF PAY [facility] Hospital Number: Effective Repository Date:2018-07-17 07/17/2018 SUSANNE S Primary SUSANNE S [place] [id number] Insurance:MEDICARE BOWENDOB: [facility] [id number] Number: Repository [address]Gky: 330 [id number] [phone] () Date:2018-07-17 07/17/2018 Secondary SUSANNE S [place] Insurance:AETNA SR BOWENDOB: [facility] [id number] Hospital Number: Repository [id number] Date:7265-41-15NNDWP SENIOR SUPPLEMENT [address] [address], [place] [address]HU: 07/17/2018 Tertiary NOT GIVENUNK [place] Insurance:SELF PAY Community [facility] Hospital Number: Effective Repository Date:2018-07-17 07/17/2018 SUSANNE S Primary SUSANNE S [place] [id number] Insurance:MEDICARE BOWENDOB: [facility] [id number], [place] Number: Repository [address]Mqj: 330 [id number] [phone] (HP) Date:2018-07-17 07/17/2018 Secondary SUSANNE S [place] Insurance:AETNA SR BOWENDOB: Community SUPPLEMENT [facility] [id number] Hospital Number: Repository [id number] Date:3539-77-28XYRJT SENIOR SUPPLEMENT [address]AYKXJXYQR[address] [place] [address]XE: 07/17/2018 Tertiary NOT GIVENUNK [place] Insurance:SELF PAY [facility] Hospital Number: Effective Repository Date:2018-07-17 07/17/2018 SUSANNE S Primary SUSANNE S [place] [id number] Insurance:MEDICARE BOWENDOB: [facility] [id number] [place] Number: Repository [id number]: 330 [id number] [phone] () Date:2018-07-17 07/17/2018 Secondary SUSANNE S [place] Insurance:AETNA SR BOWENDOB: Community SUPPLEMENT [facility] [id number] Hospital Number: Repository [id number] Date:4158-63-76XTPDB SENIOR SUPPLEMENT [address] [address]HYNTILFWN[address] [place] [address]HR: 07/17/2018 Tertiary NOT GIVENUNK [place] Insurance:SELF PAY [facility] Hospital Number: Effective Repository Date:2018-07-17 07/17/2018 SUSANNE S Primary SUSANNE S [place] [id number] Insurance:MEDICARE BOWENDOB: [facility] [id number] Number: Repository [address]Uev: 330 [id number] [phone] (HP) Date:2018-07-17 07/17/2018 Secondary SUSANNE S [place] Insurance:AETNA SR BOWENDOB: Community SUPPLEMENT [facility] [id number] Hospital Number: Repository [id number] Date:7424-56-99JMJED SENIOR SUPPLEMENT [address]BXNFBMLIO[address] [place] [address]HD: 07/17/2018 Tertiary NOT GIVENUNK H[place] Insurance:SELF PAY [facility] Number: Effective Repository Date:2018-07-17 07/17/2018 SUSANNE S Primary SUSANNE S [place] [id number] Insurance:MEDICARE BOWENDOB: Community [facility] PART A [facility] [id number] Number[place] Repository [id number]: 330 [id number] [phone] (HP) Date:2018-07-17 07/17/2018 Secondary SUSANNE S [place] Insurance:AETNA SR BOWENDOB: Community SUPPLEMENT [facility] [id number] Hospital Number: Repository [id number] Date:1626-55-58SXBFM SENIOR SUPPLEMENT [address] [place] [address]RA: 07/17/2018 Tertiary NOT GIVENUNK [place] Insurance:SELF PAY [facility] Number: Effective Repository Date:2018-07-17 06/09/2018 SUSANNE S Primary SUSANNE S [place] [id number] Insurance:MEDICARE BOWENDOB: [facility] PART A [facility] [id number] Number: Repository [id number]: 330 [id number] [phone] (HP) Date:2018-06-09 06/09/2018 Secondary SUSANNE S [place] Insurance:AETNA SR BOWENDOB: Community SUPPLEMENT [facility] [id number] Hospital Number: Repository [id number] Date:8055-95-90ONAFT SENIOR SUPPLEMENT [address] [place] [address]YP: 06/09/2018 Tertiary NOT GIVENUNK [place] Insurance:SELF PAY [facility] Number: Effective Repository Date:2018-06-09 05/09/2018 SUSANNE S Primary SUSANNE S [place] [id number] Insurance:MEDICARE BOWENDOB: Community [facility] PART A [facility] [id number] Number: Repository [id number]: 330 [id number] [phone] (HP) Date:2018-05-09 05/09/2018 Secondary SUSANNE S [place] Insurance:AETNA SR BOWENDOB: Community SUPPLEMENT [facility] [id number] Hospital Number: Repository [id number] Date:1653-78-24MFGYH SENIOR SUPPLEMENT [address] [place] [address]FH: 05/09/2018 Tertiary NOT GIVENUNK [place] Insurance:SELF PAY [facility] Hospital Number: Effective Repository Date:2018-05-09 05/08/2018 SUSANNE S Primary SUSANNE S [place] [id number] Insurance:MEDICARE BOWENDOB: [id number] [place] Number[facility]ository [address]Xvk: 330 [id number] [phone] (HP) Date:2018-05-08 05/08/2018 Secondary SUSANNE S [place] Insurance:AETNA SR BOWENDOB: Community SUPPLEMENT [facility] [id number] Hospital Number: Repository [id number] Date:2493-26-42NJCEJ SENIOR SUPPLEMENT [address] [place] [phone]: 05/08/2018 Tertiary NOT GIVENUNK [place] Insurance:SELF PAY [facility] Hospital Number: Effective Repository Date:2018-05-08 04/24/2018 SUSANNE S Primary SUSANNE S [place] [id number] Insurance:MEDICARE BOWENDOB: [facility] [id number] [place] Number[facility] Repository [id number]: 330 [id number] [phone] (HP) Date:2017-10-17 04/24/2018 Secondary SUSANNE S [place] Insurance:AETNA SR BOWENDOB: Community SUPPLEMENT [facility] [id number] Hospital Number: Repository [id number] Date:5654-77-18WTXTW SENIOR SUPPLEMENT [address] [place] [address]BL: 04/24/2018 Tertiary NOT GIVENUNK [place] Insurance:SELF PAY [facility] Number: Effective Repository Date:2018-04-24 03/07/2018 SUSANNE S Primary SUSANNE S [place] [id number] Insurance:MEDICARE BOWENDOB: [facility] [id number] Number: Repository [id number]: 330 [id number] [phone] () Date:2018-03-07 03/07/2018 Secondary SUSANNE S [place] Insurance:AETNA SR BOWENDOB: Community SUPPLEMENT [facility] [id number] Hospital Number: Repository [id number] Date:7796-40-24CXUKQ SENIOR SUPPLEMENT [address] [address]VMFQWPGSG, [place] [address]OD: 03/07/2018 Tertiary NOT GIVENUNK [place] Insurance:SELF PAY [facility] Number: Effective Repository Date:2018-03-07 02/21/2018 SUSANNE S Primary SUSANNE S [place] [id number] Insurance:MEDICARE BOWENDOB: [facility] [id number] Number: Repository [address]Hee: 330 [id number] [phone] () Date:2018-02-21 02/21/2018 Secondary SUSANNE S [place] Insurance:AETNA SR BOWENDOB: Community SUPPLEMENT [facility] [id number] Hospital Number: Repository [id number] Date:2480-84-42APKBT SENIOR SUPPLEMENT [address] [address]RCPNFPHXJ, [place] [address]WX: 02/21/2018 Tertiary NOT GIVENUNK [place] Insurance:SELF PAY [facility] Number: Effective Repository Date:2018-02-21 02/12/2018 SUSANNE S Primary SUSANNE S [place] [id number] Insurance:MEDICARE BOWENDOB: [facility] [id number] Number: Repository [id number]: 330 [id number] [phone] (HP) Date:2018-01-24 02/12/2018 Secondary SUSANNE S [place] Insurance:AETNA SR BOWENDOB: Community SUPPLEMENT [facility] [id number] Hospital Number: Repository [id number] Date:3215-57-71YPQTJ SENIOR SUPPLEMENT [address] [address]NVQXXSVXL, [place] [address]DL: 02/12/2018 Tertiary NOT GIVENUNK [place] Insurance:SELF PAY [facility] Number: Effective Repository Date:2018-01-24 02/11/2018 SUSANNE S Primary SUSANNE S [place] [id number] Insurance:MEDICARE BOWENDOB: [facility] [id number] Number: Repository [id number]: 330 [id number] [phone] () Date:2018-01-24 02/11/2018 Secondary SUSANNE S [place] Insurance:AETNA SR BOWENDOB: Community SUPPLEMENT [facility] [id number] Hospital Number: Repository [id number] Date:9846-82-75FJGJE SENIOR SUPPLEMENT [address] [address]RDFOIEQCS, [place] [address]PN: 02/11/2018 Tertiary NOT GIVENUNK [place] Insurance:SELF PAY [facility] Number: Effective Repository Date:2018-01-24 02/10/2018 SUSANNE S Primary SUSANNE S [place] [id number] Insurance:MEDICARE BOWENDOB: [facility] [id number] Number: Repository [id number]: 330 [id number] [phone] (HP) Date:2018-01-24 02/10/2018 Secondary SUSANNE S [place] Insurance:AETNA SR BOWENDOB: Community SUPPLEMENT [facility] [id number] Hospital Number: Repository [id number] Date:6441-77-86AWUKR SENIOR SUPPLEMENT [address] [address]MLZQYTRKC, [place] [address]HA: 02/10/2018 Tertiary NOT GIVENUNK [place] Insurance:SELF PAY Community [facility] Hospital Number: Effective Repository Date:2018-01-24 01/15/2018 SUSANNE S Primary SUSANNE S [place] [id number] Insurance:MEDICARE BOWENDOB: [facility] [id number] [facility]urban [facility] [place] Number: Repository [id number]: [phone]) [id number] [phone] (HP) Date:2018-01-14 01/15/2018 Secondary SUSANNE S [place] Insurance:AETNA SR BOWENDOB: Community SUPPLEMENT [facility] [id number] Hospital Number: Repository [id number] Date:8249-99-09UXYUY SENIOR SUPPLEMENT [address] [place] [address]RV: 01/15/2018 Tertiary NOT GIVENUNK [place] Insurance:SELF PAY [facility] Number: Effective Repository Date:2018-01-14 11/15/2017 SUSANNE S Primary SUSANNE S [place] [id number] Insurance:MEDICARE BOWENDOB: [facility] [id number] [place] Number[place] Repository [id number]: [phone] [id number] [phone] (HP) Date:2017-11-15 11/15/2017 Secondary SUSANNE S [place] Insurance:AETNA SR BOWENDOB: Community SUPPLEMENT [facility] [id number] Hospital Number: Repository [id number] Date:8638-97-36RHJIY SENIOR SUPPLEMENT [address] [address]RBDWFVWGI, [place] [address]XP: 11/15/2017 Tertiary NOT GIVENUNK [place] Insurance:SELF PAY [facility] Number: Effective Repository Date:2017-11-15
== END ==
PROVIDERS: Family Provider Internal Medicine; PCP Internal Medicine
DX: I10 Essential (primary) hypertension (principal); N05.2 Unspecified nephritic syndrome with diffuse membranous glomerulonephritis; R80.9 Proteinuria, unspecified
CPT/HCPCS: 36415; 80069; 81002; 82570; 84156

== ENCOUNTER → 2018-12-09 13:52 | Outpatient (CLI) | payer MEDICARE, OTHER, SELFPAY ==
[2018-10-28 09:43] VITALS: BMI 31.0
[2018-12-09 14:05] LABS: Bacteria 0 SEEN /hpf (None Seen); Mucous, Urine 0 SEEN /hpf (<or=2+); White Blood Cells 0 SEEN /hpf (0-5)
[2018-12-09 16:24] LABS: Color, Urine Yellow (Yellow); Glucose, Dipstick Normal (Normal); Ketone-Dipstick Negative (Negative); Leukocyte Esterase-Dipstick Negative /ul (Negative); Nitrite-Dipstick Negative (Negative); Occult Blood-Urine 25 /ul (Negative); Protein-Dipstick 30 mg/dl (Negative); Specific Gravity, Urine 1.025 (1.002-1.030); Urine Bilirubin Dipstick Negative (Negative); Urine Clarity Clear (Clear); Urine Urobilinogen Normal (Normal)
[2018-12-09 16:40] LABS: Red Blood Cells-Urine 0-5 SEEN /hpf (0-5); Squamous Epithelial Cells - UA 0-5 SEEN /hpf (5-10)
[2018-12-09 16:41] LABS: Hyaline Cast 10-25 SEEN /lpf (0-5)
== END ==
PROVIDERS: Family Provider Internal Medicine; PCP Internal Medicine
DX: N18.4 Chronic kidney disease, stage 4 (severe) (principal); I12.9 Hypertensive chronic kidney disease with stage 1 through stage 4 chronic kidney disease, or unspecified chronic kidney disease; R80.9 Proteinuria, unspecified
CPT/HCPCS: 36415; 81001

== ENCOUNTER → 2019-01-30 11:32 | Outpatient (CLI) | payer MEDICARE, OTHER, SELFPAY ==
[2018-10-28 09:43] VITALS: BMI 31.0
[2019-01-30 12:03] LABS: Mucous, Urine 0 SEEN /hpf (<or=2+); Red Blood Cells-Urine 0 SEEN /hpf (0-5)
[2019-01-30 12:41] LABS: Absolute Lymphocyte Count 1.05 X10^3/ul (0.83-4.51); Absolute Neutrophil Count 4.9 X10^3/uL (2.0-7.7); Basophil# 0.01 X10^3/uL; Basophil% 0.1 % (0-1); Eosinophil# 0.26 X10^3/uL; Eosinophils% 3.9 % (0-5); Hematocrit 38.3 % (37-47); Hemoglobin 12.6 g/dl (12.0-15.0); Lymphocyte # 1.05 X10^3/ul (4.0); Lymphocyte % 15.6 % (19-41); Mean Corp Hgb Conc 32.9 g/gl (32-36); Mean Corpuscular Hgb 29.6 pg (27.0-32.0); Mean Corpuscular Volume 89.9 fL (81-99); Mean Platelet Vol. 9.8 fl (6.2-12.0); Monocyte# 0.53 X10^3/uL; Monocyte% 7.9 % (0-10); Neutrophil # 4.85 X10^3/uL (2.7-7.7); Neutrophil % 72.2 % (47-70); Platelet Count 241 K/mm3 (150-450); Red Blood Count 4.26 M/mm3 (4.2-5.4); White Blood Count 6.7 K/mm3 (4.4-11.0)
[2019-01-30 12:47] LABS: POSITIVE COUNT NO; POSITIVE DIFFERENTIAL NO; POSITIVE MORPHOLOGY NO
[2019-01-30 12:49] LABS: Color, Urine Yellow (Yellow); Glucose, Dipstick Normal (Normal); Ketone-Dipstick Negative (Negative); Leukocyte Esterase-Dipstick 25 /ul (Negative); Nitrite-Dipstick Negative (Negative); Occult Blood-Urine 25 /ul (Negative); Protein-Dipstick 30 mg/dl (Negative); Urine Bilirubin Dipstick Negative (Negative); Urine Clarity Clear (Clear); Urine Urobilinogen Normal (Normal); Urine pH 6.5 (5.0 - 8.0)
[2019-01-30 12:50] LABS: Protein:Creat Ratio 215 mg/g CRE (0-200)
[2019-01-30 13:04] LABS: Bacteria RARE /hpf (None Seen); Squamous Epithelial Cells - UA 0-5 SEEN /hpf (5-10); White Blood Cells 0-5 SEEN /hpf (0-5)
[2019-01-30 13:11] LABS: Vitamin D,25 Hydroxy 20.4 ng/mL (29.95-100.01)
[2019-01-30 13:14] LABS: Albumin, Serum 3.6 g/dL (3.2-5.0); BUN 23 mg/dL (7-18); Calcium,Total 9.8 mg/dL (8.5-10.1); Chloride 104 mmol/L (98-107); Cholesterol 246 mg/dL (200); Creatinine, Serum 1.15 mg/dL (0.55-1.02); EST Glomerular Filtration Rate 50 mL/min (>60); Erythrocyte Sedimentation Rate 16 mm/hr (0-30); Est Glom Filt Rate - Afr Amer 61 mL/min (>60); Glucose 101 mg/dL (74-106); High Density Lipoprotein 69 mg/dL; Phosphorus 3.7 mg/dL (2.5-4.9); Potassium 4.8 mmol/L (3.5-5.1); Sodium Level 137 mmol/L (136-145); Thyroid Stim Hormone (TSH) 0.85 uIU/mL (0.358-3.74); Triglycerides 86 mg/dL; Very Low Density Lipoprotein 17 mg/dL (5-40)
== END ==
PROVIDERS: Family Provider Internal Medicine; PCP Internal Medicine
DX: I12.9 Hypertensive chronic kidney disease with stage 1 through stage 4 chronic kidney disease, or unspecified chronic kidney disease (principal); N18.4 Chronic kidney disease, stage 4 (severe); R80.9 Proteinuria, unspecified; D64.9 Anemia, unspecified; M25.50 Pain in unspecified joint; E55.9 Vitamin D deficiency, unspecified; E78.2 Mixed hyperlipidemia; E03.9 Hypothyroidism, unspecified
CPT/HCPCS: 36415; 80061; 80069; 81001; 82306; 82570; 84156; 84443; 85025; 85652

== ENCOUNTER → 2019-02-24 07:32 | Outpatient (CLI) | payer MEDICARE, OTHER, SELFPAY ==
[2018-10-28 09:43] VITALS: BMI 31.0
--- NOTE | 2019-02-24 12:12 | NEURO ---
NCS and/or EMG Patient Report Ordering Doctor: Baldomero Hanks DATE OF SERVICE: 02/24/19 This is a 68-year-old female with a history of left carpal tunnel repair but ongoing symptoms. Symptoms are equal bilaterally. She also complains of joint pain. Bilateral upper extremity sensory and motor nerve conduction studies were performed. The median motor responses are not obtainable on either side, and the right median sensory response is not obtainable. The left median sensory response demonstrated prolonged latency. The ulnar motor and sensory and radial sensory responses are normal bilaterally. The bilateral ulnar F-wave latencies are normal bilaterally. Right upper extremity nerve conduction study is performed. Muscles evaluated included the first dorsal osseous, abductor pollicis brevis, brachial radialis, biceps, triceps and deltoid muscles. The abductor pollicis brevis muscle did demonstrate large motor units with early recruitment, and 1+ fibrillation potentials. All other muscles tested demonstrated normal insertional activity with absence of pathologic spontaneous activity, motor unit potential recruitment pattern and amplitude was normal in all muscles tested otherwise. Impression: Abnormal electrophysiologic study of the upper extremities consistent with severe carpal tunnel syndrome at the wrists bilaterally.
== END ==
PROVIDERS: Family Provider Internal Medicine; PCP Internal Medicine; Referring Provider Specialist; Visit Provider Specialist
DX: G56.01 Carpal tunnel syndrome, right upper limb (principal)
CPT/HCPCS: 95886; 95911

== ENCOUNTER 2019-06-25 10:44 | Outpatient (RCR) | payer MEDICARE, OTHER, SELFPAY ==
[2019-04-30 14:27] VITALS: BMI 28.1
[2019-06-25 11:45] LABS: International Normalized Ratio 1.4; Prothrombin Time (Protime)PT. 16.6 SECONDS (11.7-14.9)
== END 2019-06-25 11:00 | disposition home or self-care (01) ==
LOC: LAB 10:44
PROVIDERS: Family Provider Internal Medicine; PCP Internal Medicine; Referring Provider Internal Medicine Cardiovascular Disease; Visit Provider Internal Medicine Cardiovascular Disease
DX: I48.0 Paroxysmal atrial fibrillation (principal); Z79.01 Long term (current) use of anticoagulants
CPT/HCPCS: 36415; 85610

== ENCOUNTER 2019-07-09 12:28 | Outpatient (RCR) | payer MEDICARE, OTHER, SELFPAY ==
[2019-04-30 14:27] VITALS: BMI 28.1
[2019-07-02 11:57] LABS: International Normalized Ratio 1.4; Prothrombin Time (Protime)PT. 17.4 SECONDS (11.7-14.9)
[2019-07-09 14:00] LABS: International Normalized Ratio 1.6; Prothrombin Time (Protime)PT. 19.1 SECONDS (11.7-14.9)
== END 2019-07-09 13:00 | disposition home or self-care (01) ==
LOC: LAB 12:28
PROVIDERS: Family Provider Internal Medicine; PCP Internal Medicine; Referring Provider Internal Medicine Cardiovascular Disease; Visit Provider Internal Medicine Cardiovascular Disease
DX: I48.0 Paroxysmal atrial fibrillation (principal); Z79.01 Long term (current) use of anticoagulants
CPT/HCPCS: 36415; 85610

== ENCOUNTER 2019-07-30 11:00 | Outpatient (RCR) | payer MEDICARE, OTHER, SELFPAY ==
[2019-04-30 14:27] VITALS: BMI 28.1
[2019-07-16 14:30] LABS: International Normalized Ratio 1.8; Prothrombin Time (Protime)PT. 21.1 SECONDS (11.7-14.9)
[2019-07-30 11:34] LABS: Absolute Lymphocyte Count 1.01 X10^3/uL (0.83-4.51); Absolute Neutrophil Count 4.3 X10^3/uL (2.0-7.7); Basophil# 0.04 X10^3/uL; Basophil% 0.6 % (0-1); Eosinophils% 6.3 % (0-5); Hematocrit 37.5 % (37-47); Hemoglobin 12.3 g/dL (12.0-15.0); Lymphocyte # 1.01 X10^3/ul (4.0); Lymphocyte % 15.8 % (19-41); Mean Corp Hgb Conc 32.8 g/dL (32-36); Mean Corpuscular Hgb 30.9 pg (27.0-32.0); Mean Corpuscular Volume 94.2 fL (81-99); Mean Platelet Vol. 10.5 fl (6.2-12.0); Monocyte# 0.58 X10^3/uL; Monocyte% 9.1 % (0-10); NRBC Flagged by Analyzer 0 % (0-5); Neutrophil # 4.33 X10^3/uL (2.7-7.7); Neutrophil % 67.7 % (47-70); Platelet Count 226 K/mm3 (150-450); RBC Distribution Width CV 13.4 % (11.6-14.6); RBC Distribution Width SD 46.3 fl (35.1-43.9); Red Blood Count 3.98 M/mm3 (4.2-5.4); White Blood Count 6.4 K/mm3 (4.4-11.0)
[2019-07-30 11:35] LABS: Color, Urine Yellow (Yellow); Glucose, Dipstick Normal (Normal); Ketone-Dipstick Negative (Negative); Leukocyte Esterase-Dipstick 500 /ul (Negative); Nitrite-Dipstick Negative (Negative); Occult Blood-Urine 150 /ul (Negative); Protein-Dipstick 15 mg/dl (Negative); Specific Gravity, Urine 1.015 (1.002-1.030); Urine Bilirubin Dipstick Negative (Negative); Urine Clarity Sl. Cloudy (Clear); Urine Urobilinogen Normal (Normal)
[2019-07-30 11:46] LABS: International Normalized Ratio 1.9; Prothrombin Time (Protime)PT. 21.3 SECONDS (11.7-14.9)
[2019-07-30 11:52] LABS: Albumin, Serum 3.4 g/dL (3.2-5.0); BUN 24 mg/dL (7-18); BUN/Creat Ratio 19.5 RATIO (10-20); Calcium,Total 9.3 mg/dL (8.5-10.1); Chloride 104 mmol/L (98-107); Creatinine, Serum 1.23 mg/dL (0.55-1.02); EST Glomerular Filtration Rate 46 mL/min (>60); Est Glom Filt Rate - Afr Amer 56 mL/min (>60); Glucose 92 mg/dL (74-106); Phosphorus 3.1 mg/dL (2.5-4.9); Potassium 4.7 mmol/L (3.5-5.1); Sodium Level 136 mmol/L (136-145)
[2019-07-30 11:56] LABS: Protein:Creat Ratio 242 mg/g CRE (0-200)
== END 2019-07-30 18:00 | disposition home or self-care (01) ==
LOC: LAB 11:00
PROVIDERS: Family Provider Internal Medicine; PCP Internal Medicine; Referring Provider Internal Medicine Cardiovascular Disease; Visit Provider Internal Medicine Cardiovascular Disease
DX: I48.0 Paroxysmal atrial fibrillation (principal); Z79.01 Long term (current) use of anticoagulants
CPT/HCPCS: 36415; 80069; 81002; 82570; 84156; 85025; 85610

== ENCOUNTER → 2019-08-04 14:52 | Outpatient (CLI) | payer MEDICARE, OTHER, SELFPAY ==
[2019-04-30 14:27] VITALS: BMI 28.1
== END ==
PROVIDERS: Family Provider Internal Medicine; PCP Internal Medicine; Referring Provider Internal Medicine Nephrology; Visit Provider Internal Medicine Nephrology
DX: N39.0 Urinary tract infection, site not specified (principal); N03.9 Chronic nephritic syndrome with unspecified morphologic changes
CPT/HCPCS: 87086; 87088

== ENCOUNTER 2019-08-24 03:13 | Emergency (ER) | payer MEDICARE, OTHER, SELFPAY ==
[2019-04-30 14:27] VITALS: BMI 28.1
[2019-08-24 03:14] VITALS: BP 158/79; PULSE 67; RESP 18; TEMP 36.7; O2SAT 98; BMI 27.2
--- NOTE | 2019-08-24 03:28 | CT_ITS ---
STUDY: CT ABDOMEN AND PELVIS WITHOUT CONTRAST REASON FOR EXAM: Female, 68 years old. Right hip pain. TECHNIQUE: Transaxial images were obtained from the dome of the diaphragm to the symphysis pubis without oral contrast, and without intravenous contrast. Sagittal and coronal images were reconstructed. Individualized dose optimization techniques were used for this CT. COMPARISON: None. FINDINGS: Partially visualized lower chest: Mild COPD and mild cardiomegaly partially visible. Liver: No concerning lesions. Gallbladder and biliary tree: No visible gallstones. No pericholecystic inflammation. No biliary ductal dilation. Pancreas: No pancreatic lesions or inflammation. Spleen: Normal size, no splenic lesions. Adrenal glands: No concerning masses. Kidneys and ureters: No hydronephrosis or renal stones. No concerning masses. No ureteral dilation. Bowel: Appendix not identified. No evidence of appendicitis. No obstruction or inflammation of the bowel. Small hiatal hernia contains a portion of the gastric fundus. Urinary bladder: No acute abnormality. Partially obscured by streak artifact from the right hip arthroplasty. Reproductive: Small uterine fibroids. Ovaries unremarkable. Vascular: No abdominal aortic aneurysm. Retroperitoneal and peritoneal spaces: No ascites or free air. No retroperitoneal lesions. Osseous: No acute osseous abnormality. Prominent degenerative changes lumbar spine. Very mild right scoliosis centered at L3. Right hip arthroplasty partially visible.. Abdominal and pelvic wall: No concerning findings. CT/Abdomen/Pelvis without Cont IMPRESSION: No acute findings. Electronically Signed: Luis Bonilla, at 4:23 EST Tel , Service support ,
--- NOTE | 2019-08-24 03:29 | ED.DCSUM_ITS ---
History of Present Illness Chief Complaint: Lower Extremity Injury Informant: Patient Narrative: Stated she developed acute onset of right flank and lower abdominal pain this evening over the last couple hours. She cannot get comfortable. Is not movement related. There is no injury. She is never had this before. No history of appendicitis or kidney stones. No home treatment. Current severity is moderate. It is continuous. It waxes and wanes. Difficult to tell me what type of pain it is. 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 (6) Mitral valve insufficiency Status: Chronic (7) Paroxysmal atrial fibrillation Status: Chronic Comment: DCCV on 09/09/2018; (8) Proteinuria Status: Chronic (9) Pure hypercholesterolemia Status: Chronic (10) Rheumatic mitral regurgitation Status: Chronic (11) SOB (shortness of breath) Status: Resolved Past Medical History - Allergies and Home Meds Allergies/Adverse Reactions: Allergies Penicillins [PCN] Allergy (Verified 08/24/19 03:19) Unknown lisinopril Adverse Reaction (Intermediate, Verified 08/24/19 03:19) cough Primary Care Physician: Sandra Lopez MD [Primary Care Provider] - Prior records reviewed: Yes Past Medical History: - - See problem list Surgical History: total hip arthroplasty, - - tubal Smoking Status: Never smoker Alcohol: None Drugs: None - Family History Maternal Family History: Family History (Last Reviewed 04/30/19 @ 14:31 by Taylor Green) Father Heart disease Family History: Reports: Dementia, - - thyroid Paternal Family History: Family History (Last Reviewed 04/30/19 @ 14:31 by Taylor Green) Father Heart disease Family History: Reports: - - thyroid Sibling Family History: Family History (Last Reviewed 04/30/19 @ 14:31 by Taylor Green) Father Heart disease Family History: Reports: - - thyroid Review of Systems General: Denies: Chills, Fever, Sweats Eyes: Denies: Visual changes - bilaterally, Diplopia ENT: Denies: Rhinorrhea, Sore throat Cardiovascular: Denies: Chest pain, Palpitations Respiratory: Denies: Dyspnea, Cough, Dyspnea on exertion Gastrointestinal: Reports: - - Right-sided flank pain. Denies: Abdominal pain, Nausea, Vomiting, Diarrhea, Melena, Hematochezia Genitourinary: Denies: Dysuria, Hematuria, Frequency Musculoskeletal: Denies: Back pain, Extremity Pain Skin: Denies: Rash, Wounds Neurological: Denies: Headache, Weakness, Numbness Physical Exam Vital Signs/Narrative: Vital Signs Temp Pulse Resp BP Pulse Ox 08/24/19 03:14 98.1 F 67 18 158/79 H 98 General: Well nourished, Well developed, No Acute Distress Head: Normocephalic, Atraumatic Eyes: Perrl, EOMI ENT: Moist mucous membranes, No rhinorrhea Neck: Supple, Nontender Cardiovascular: Regular rate, Regular rhythm, No murmurs Respiratory: No distress, CTA bilaterally, Chest nontender Abdomen: Soft, Nontender, Nondistended, Normal bowel sounds Back: Nontender, Normal Inspection Extremities: Nontender, No edema Skin: Normal color, No rash Neurological: Alert, Oriented x3, Cranial nerves II-XII grossly intact, Normal Strength, Normal Sensation Psychological: Normal affect, Normal Mood Diagnostic/Tx/Re-eval - Medical Decision Making Patient given IV fluids Zofran morphine Toradol. Lab work and CT abdomen pelvis obtained lab work shows mild anemia and mild hyponatremia no major abnormalities. CBC BMP urinalysis unremarkable. Patient had a CAT scan that shows no acute abnormalities. Patient did feel better after treatment. At this time is unclear to me what the cause of her right flank lower abdominal pain is. Is not her hip it is superior to it. At this time I feel she can be discharged with a short course of pain medicine and nausea medicine follow-up as an outpatient return if she worsens patient is in agreement with this. ED Disposition - Plan for ED Patient: Disposition: Home or Assisted Living Diagnosis: Right flank pain Instructions: Abdominal Pain Prescriptions: Oxycodone HCl/Acetaminophen [Percocet 5/325] 1 tab PO Q6H PRN PRN 3 Days #12 tab PRN Reason: Pain Prescription Printed Ondansetron [Zofran Odt] 4 mg PO Q8H PRN PRN #10 tab PRN Reason: Nausea Prescription Printed Referrals: Sandra Lopez MD [Primary Care Provider] -
[2019-08-24 03:47] LABS: Absolute Lymphocyte Count 0.63 X10^3/uL (0.83-4.51); Absolute Neutrophil Count 8.1 X10^3/uL (2.0-7.7); Basophil# 0.03 X10^3/uL; Basophil% 0.3 % (0-1); Eosinophil# 0.21 X10^3/uL; Eosinophils% 2.2 % (0-5); Hematocrit 33.8 % (37-47); Hemoglobin 11.3 g/dL (12.0-15.0); Lymphocyte # 0.63 X10^3/ul (4.0); Lymphocyte % 6.7 % (19-41); Mean Corp Hgb Conc 33.4 g/dL (32-36); Mean Corpuscular Hgb 31.4 pg (27.0-32.0); Mean Corpuscular Volume 93.9 fL (81-99); Mean Platelet Vol. 10.8 fl (6.2-12.0); Monocyte# 0.43 X10^3/uL; Monocyte% 4.6 % (0-10); NRBC Flagged by Analyzer 0 % (0-5); Neutrophil % 85.9 % (47-70); Platelet Count 214 K/mm3 (150-450); RBC Distribution Width CV 13.4 % (11.6-14.6); RBC Distribution Width SD 45.7 fl (35.1-43.9); White Blood Count 9.4 K/mm3 (4.4-11.0)
[2019-08-24] MEDS: Ondansetron 4 MG/2 ML Vial IV (03:50)
[2019-08-24] MEDS: Morphine 4 MG/ML Syringe IV (03:51)
[2019-08-24] MEDS: Ketorolac 30 MG/ML Syringe IV (03:51)
[2019-08-24] MEDS: 0.9% Normal Saline 1,000 ML 250 ML IV (03:51)
[2019-08-24 03:59] LABS: Anion Gap 8 (5-15); BUN 32 mg/dL (7-18); BUN/Creat Ratio 27.1 RATIO (10-20); Calcium,Total 9.1 mg/dL (8.5-10.1); Chloride 100 mmol/L (98-107); Creatinine, Serum 1.18 mg/dL (0.55-1.02); EST Glomerular Filtration Rate 48 mL/min (>60); Est Glom Filt Rate - Afr Amer 59 mL/min (>60); Estimated Creatinine Clearance 36.59 ml/min; Glucose 148 mg/dL (74-106); Potassium 4.5 mmol/L (3.5-5.1); Sodium Level 132 mmol/L (136-145)
[2019-08-24 04:36] LABS: Mucous, Urine 0 SEEN /hpf (<or=2+); White Blood Cells 0 SEEN /hpf (0-5)
[2019-08-24 04:43] LABS: Color, Urine Yellow (Yellow); Glucose, Dipstick Normal (Normal); Ketone-Dipstick Negative (Negative); Leukocyte Esterase-Dipstick Negative /ul (Negative); Nitrite-Dipstick Negative (Negative); Occult Blood-Urine 150 /ul (Negative); Protein-Dipstick 100 mg/dl (Negative); Urine Bilirubin Dipstick Negative (Negative); Urine Clarity Clear (Clear); Urine Urobilinogen Normal (Normal)
[2019-08-24 04:50] LABS: Bacteria RARE /hpf (None Seen); Red Blood Cells-Urine 0-5 SEEN /hpf (0-5); Squamous Epithelial Cells - UA 0-5 SEEN /hpf (5-10)
[2019-08-24] MEDS: Morphine 2 MG/ML Syringe IV (05:17)
[2019-08-24 05:19] VITALS: BP 123/63; PULSE 63; RESP 16; O2SAT 98
== END 2019-08-24 05:35 | disposition home or self-care (01) ==
PROVIDERS: Emergency Provider Emergency Medicine; Family Provider Internal Medicine; PCP Internal Medicine
DX: R10.30 Lower abdominal pain, unspecified (principal); F32.9 Major depressive disorder, single episode, unspecified; E03.9 Hypothyroidism, unspecified; I48.0 Paroxysmal atrial fibrillation; E78.00 Pure hypercholesterolemia, unspecified; I34.0 Nonrheumatic mitral (valve) insufficiency; Z79.01 Long term (current) use of anticoagulants
CPT/HCPCS: 74176; 80048; 81001; 85025; 96361; 96374; 96375; 96376; 99285; J7030; J2405

== ENCOUNTER 2019-09-04 11:05 | Outpatient (RCR) | payer MEDICARE, OTHER, SELFPAY ==
[2019-04-30 14:27] VITALS: BMI 28.1
[2019-08-14 12:50] LABS: International Normalized Ratio 1.8; Prothrombin Time (Protime)PT. 20.7 SECONDS (11.7-14.9)
[2019-08-21 10:55] LABS: International Normalized Ratio 1.8; Prothrombin Time (Protime)PT. 21.1 SECONDS (11.7-14.9)
[2019-09-04 12:58] LABS: Prothrombin Time (Protime)PT. 22.3 SECONDS (11.7-14.9)
== END 2019-09-04 18:00 | disposition home or self-care (01) ==
LOC: LAB 11:05
PROVIDERS: Family Provider Internal Medicine; PCP Internal Medicine; Referring Provider Internal Medicine Cardiovascular Disease; Visit Provider Internal Medicine Cardiovascular Disease
DX: I48.0 Paroxysmal atrial fibrillation (principal); Z79.01 Long term (current) use of anticoagulants
CPT/HCPCS: 36415; 85610

== ENCOUNTER 2019-09-18 09:01 | Outpatient (RCR) | payer MEDICARE, OTHER, SELFPAY ==
[2019-09-18 10:33] LABS: International Normalized Ratio 2.1; Prothrombin Time (Protime)PT. 23.7 SECONDS (11.7-14.9)
== END 2019-09-18 18:00 | disposition home or self-care (01) ==
LOC: LAB 09:01
PROVIDERS: Family Provider Internal Medicine; PCP Internal Medicine; Referring Provider Internal Medicine Cardiovascular Disease; Visit Provider Internal Medicine Cardiovascular Disease
DX: I48.0 Paroxysmal atrial fibrillation (principal); Z79.01 Long term (current) use of anticoagulants
CPT/HCPCS: 36415; 85610

== ENCOUNTER 2019-10-22 16:01 | Outpatient (RCR) | payer MEDICARE, OTHER, SELFPAY ==
[2019-10-22 17:49] LABS: International Normalized Ratio 2.3; Prothrombin Time (Protime)PT. 25.6 SECONDS (11.7-14.9)
== END 2019-10-22 18:00 | disposition home or self-care (01) ==
LOC: LAB 16:01
PROVIDERS: Family Provider Internal Medicine; PCP Internal Medicine; Referring Provider Internal Medicine Cardiovascular Disease; Visit Provider Internal Medicine Cardiovascular Disease
DX: I48.0 Paroxysmal atrial fibrillation (principal); Z79.01 Long term (current) use of anticoagulants
CPT/HCPCS: 36415; 85610

== ENCOUNTER → 2019-11-18 10:50 | Outpatient (CLI) | payer MEDICARE, OTHER, SELFPAY ==
[2019-11-06 15:10] VITALS: BMI 27.6
--- NOTE | 2019-11-18 10:52 | ECHOD_ITS ---
Reason For Study: MURMUR Procedure This was a 2D Doppler, Color Flow transthoracic echocardiogram. The exam was of adequate technical quality. Exam performed in department. Left Ventricle Normal LV size. Apical false tendon noted. Left ventricular systolic function is normal. The estimated ejection fraction is 60 %. No regional wall motion abnormalities noted. Right Ventricle Normal RV size. Normal systolic function. Atria The left atrium is moderately enlarged. Normal right atrium. No doppler evidence for ASD. Mitral Valve There is no mitral annular calcification. Mild diffuse mitral valve thickening. Moderate focal mitral valve calcification of the anterior leaflet. Mitral valve doming/Hockey Sticking. The mitral valve chordae are thickened and/or calcified. Moderate (2+) eccentric mitral valve insufficiency. Tricuspid Valve Normal tricuspid valve. Moderate (2+) eccentric tricuspid valve insufficiency. Right ventricular systolic pressure estimated to be 45 mmHg. Aortic Valve Trisinus/trileaflet aortic valve. Mild focal aortic valve calcification. Pulmonic Valve The pulmonic valve is not well visualized. Moderate (2+) pulmonic valve insufficiency. Great Vessels Normal sized aortic root. Pericardium/Pleural No pericardial effusion. MMode/2D Measurements & Calculations LVIDd: 5.2 cm IVSd: 1.1 cm Ao root diam: 3.4 cm LVIDs: 3.3 cm LVPWd: 1.1 cm RVDd: 3.8 cm FS: 37.0 % LAV(MOD-bp): 90.1 ml LVAd ap4: 29.2 cm2 SV(MOD-sp4): 52.3 ml LAV(MOD-bp) Indexed: 53.9 ml/m2 EDV(MOD-sp4): 97.3 ml LAV(MOD-sp2): 83.8 ml EDV(sp4-el): 104.2 ml LAV(MOD-sp4): 88.6 ml LVAs ap4: 17.5 cm2 ESV(MOD-sp4): 45.1 ml ESV(sp4-el): 46.0 ml EF(MOD-sp4): 53.7 % EF(sp4-el): 55.8 % SV(sp4-el): 58.2 ml LA A4 area: 26.5 cm2 LA dimension(2D): 5.1 cm RA A4 area: 14.9 cm2 Time Measurements MV dec time: 0.16 sec Doppler Measurements & Calculations MV E max ariel: 144.6 cm/sec Lat Peak E' Ariel: 7.6 cm/sec Med Peak E' Ariel: 3.9 cm/sec MV A max ariel: 104.2 cm/sec E/E' lat: 19.2 E/E' med: 36.7 MV E/A: 1.4 MV V2 max: 124.7 cm/sec Ao V2 max: 185.0 cm/sec LV V1 max: 80.8 cm/sec MV max P.2 mmHg Ao max P.7 mmHg LV V1 max P.6 mmHg MV V2 mean: 70.4 cm/sec Ao V2 mean: 132.0 cm/sec LV V1 mean P.5 mmHg MV mean P.3 mmHg Ao mean P.7 mmHg LV V1 mean: 59.9 cm/sec MV V2 VTI: 44.9 cm Ao V2 VTI: 39.9 cm LV V1 VTI: 17.8 cm TR max ariel: 324.5 cm/sec MV P1/2t-pr_phl: 114.3 msec TR max P.2 mmHg Interpretation Summary Left ventricular systolic function is normal. The estimated ejection fraction is 60 %. Apical false tendon noted. The left atrium is moderately enlarged. Mild diffuse mitral valve thickening. Moderate focal mitral valve calcification of the anterior leaflet. Mitral valve doming/Hockey Sticking The mitral valve chordae are thickened and/or calcified. Moderate (2+) eccentric mitral valve insufficiency. Moderate (2+) eccentric tricuspid valve insufficiency. Mild focal aortic valve calcification. Moderate (2+) pulmonic valve insufficiency. Right ventricular systolic pressure estimated to be 45 mmHg. Transmitral diastolic flow velocities suggest diastolic dysfunction (pseudonormal pattern). Ordering Physician: Sami Hinojosa Referring Physician: SHYLA MORALES Performed By: Karissa Dejesus, RDCS, RVT
== END ==
PROVIDERS: PCP Internal Medicine; Referring Provider Internal Medicine Cardiovascular Disease; Visit Provider Internal Medicine Cardiovascular Disease
DX: I36.1 Nonrheumatic tricuspid (valve) insufficiency (principal); R01.1 Cardiac murmur, unspecified; I48.0 Paroxysmal atrial fibrillation; Z79.01 Long term (current) use of anticoagulants
CPT/HCPCS: 36415; 85610; 93306

== ENCOUNTER → 2019-12-09 13:00 | Outpatient (CLI) | payer MEDICARE, OTHER, SELFPAY ==
[2019-12-09 13:23] VITALS: BP 142/74; PULSE 58; RESP 16; TEMP 36.9; O2SAT 97; BMI 29.2
[2019-12-09 15:06] LABS: Absolute Lymphocyte Count 1.35 X10^3/uL (0.83-4.51); Basophil# 0.03 X10^3/uL; Basophil% 0.5 % (0-1); Eosinophil# 0.29 X10^3/uL; Eosinophils% 4.6 % (0-5); Hematocrit 35.7 % (37-47); Hemoglobin 12.3 g/dL (12.0-15.0); Lymphocyte # 1.35 X10^3/ul (4.0); Lymphocyte % 21.4 % (19-41); Mean Corp Hgb Conc 34.5 g/dL (32-36); Mean Corpuscular Hgb 32.3 pg (27.0-32.0); Mean Corpuscular Volume 93.7 fL (81-99); Mean Platelet Vol. 10.9 fl (6.2-12.0); Monocyte# 0.65 X10^3/uL; Monocyte% 10.3 % (0-10); NRBC Flagged by Analyzer 0 % (0-5); Neutrophil # 3.96 X10^3/uL (2.7-7.7); Neutrophil % 62.9 % (47-70); Platelet Count 250 K/mm3 (150-450); RBC Distribution Width CV 13.8 % (11.6-14.6); RBC Distribution Width SD 46.4 fl (35.1-43.9); Red Blood Count 3.81 M/mm3 (4.2-5.4); White Blood Count 6.3 K/mm3 (4.4-11.0)
[2019-12-09 15:24] LABS: Anion Gap 3 (5-15); BUN 30 mg/dL (7-18); BUN/Creat Ratio 26.3 RATIO (10-20); Calcium,Total 9.5 mg/dL (8.5-10.1); Chloride 104 mmol/L (98-107); Creatinine, Serum 1.14 mg/dL (0.55-1.02); EST Glomerular Filtration Rate 50 mL/min (>60); Est Glom Filt Rate - Afr Amer 61 mL/min (>60); Estimated Creatinine Clearance 33.93 ml/min; Glucose 88 mg/dL (74-106); Potassium 4.9 mmol/L (3.5-5.1); Sodium Level 135 mmol/L (136-145)
[2019-12-10 10:15] LABS: Thyroid Stim Hormone (TSH) 0.25 uIU/mL (0.358-3.74)
--- NOTE | 2019-12-10 11:06 | HP.PCM_ITS ---
History and Physical History and Physical [facility] Patient Name: Susanne Barnes : 1950 From: BRAYDEN LOCKE PA-C DATE OF SURGERY: 12/23/2019 SCHEDULED PROCEDURE: left total knee arthroplasty HISTORY OF PRESENT ILLNESS: Preoperative history and physical exam was performed on December 09, 2019. This is a 69-year-old female who is been having ongoing pain in her left knee for over 8 years. Pain can reach a 7/10 with activities. Pain as being constant, aching, stabbing. Pain is increased with walking, sitting, and standing. Patient does complain of clicking with weightbearing. Patient has difficult time with activities of daily living such as riding horses. She has tripped/stumble due to the knee pain. She states she has difficult time and feels unsafe twisting type activity or walking downhill. Patient has difficulty with getting dressed and putting on her socks and shoes. Patient has attempted rest, ice, elevation with no significant relief in symptoms. She has attempted home exercises with no relief. 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 Patient has tried Tylenol which only helps temporarily. Patient denies previous surgery on the left knee. Patient has tried Jalil wrap in the past with no relief. After failing conservative measures and discussing treatment options with Dr. Baldomero Hanks the patient does wish to proceed with a left total knee arthroplasty. Patient currently takes warfarin and has had previous cardioversion on September 09, 2018. Patient has a history of atrial fibrillation, mitral valve disease, hypertension, hyperlipidemia, and thyroid disease. She currently denies any chest pain, shortness of breath, fevers chills, recent infections. We are obtaining surgical clearance from the referral specialist Dr. Hinojosa. REVIEW OF SYSTEMS: ROS: Const: Denies anorexia, change in appetite, fever, difficulty sleeping, weight change. CV: Reports heart murmur, but denies chest pain, irregular heartbeat and peripheral vascular disease. Resp: Denies asthma, cough, pneumonia, sleep apnea, shortness of breath, tuberculosis and wheezing. GI: Reports heartburn, but denies constipation, diarrhea, nausea, rectal itching, bloody stools and vomiting. : MORE THAN 3 MO. WITHOUT PERIOD Reports incontinence. Musculo: Denies leg swelling, pain, trouble walking and weakness. Skin: Denies Raynaud's, history of shingles and tattoo. Neuro: Reports numbness/tingling but denies ambulatory dysfunction, dizziness and tremor. Psych: Denies anxiety, depression, insomnia, mental illness and stress. Johnny/Lymph: Reports bleeding/bruising tendency, but denies anemia and past transfusion. Reviewed, no changes. PAST MEDICAL HISTORY: Advance Care Plan: Other Directive, LIVING WILL Effective Date: 02/16/2019 Other Directive, POA Effective Date: 02/16/2019 PMH: Medical Problems: Arthritis, High Blood Pressure, Thyroid Disease, Hypercholesterolemia Kidney's - LOOSING PROTEIN Depression Accidents: None Surgical Hx: Tubal Ligation - (1979) [facility] RT THR - (10/16/2011) [email or web address] Carpal Tunnel Release LT - (08/29/2017) [email or web address]/[email or web address] - (02/24/2019) [facility] Anesthesia Complications: None Assistive Devices: Glasses, Brace - BILAT HAND BRACE AT NIGHT Reviewed and updated. SOCIAL HISTORY: SH: Marital: .Occupation: Retired.Work Status: Retired.Hand Dominance: Right-handed. Personal Habits: Cigarette Use: Never Smoked Cigarettes.Alcohol: Denies use.Drug Use: Denies Use.Enjoy Exercising: Never Exercises. Reviewed, no changes. VITALS: Ht: 60 Wt: 152lb Wt [id number] BMI: 29.7 BP: 152/79 Pulse: 57 Resp: 12 T: 96.8 T: 36.0C ALLERGIES: Penicillin - Hip Started Getting Red,Hard, And Swollen Lisinopril - Cough MEDICATIONS: Atenolol 50 mg 1 po qd, Fluoxetine 20 mg 1 PO q day, Bupropion HCL ER (SR) 150 mg 1 by mouth every day, Spironolactone 25 mg 1 by mouth every day, Atorvastatin Calcium 40 mg 1 by mouth every day, Losartan Potassium 50 mg 1 tab PO bid, Vitamin D 2000 Unit 1 by mouth every day, Calcium 600 600 mg 1po qday, Synthroid 125 mcg 1po qday, Diltiazem CD 240 mg 1po qday, Tylenol Extra Strength 500 mg 2 by mouth every 8 hours, Ocuvite Eye Health Formula 2po qday, Vitamin D2 41367 1 weekly, Warfarin Sodium 2.5 mg 1 PO qd PRE-OP EXAM: General appearance:NORMAL Other: Eyes: Conjunctivae and lids: NORMAL Pupils: ERR Ears, Nose, Mouth, and Throat: NORMAL Other: Inspection of lips, teeth and gums: NORMAL Other: Neck: Examination of neck: no masses noted. Respiratory: Assessment of respiratory effort: NORMAL Other: Auscultation of lungs: clear to auscultation no wheezes, rhonchi or rales. Cardiovascular: Auscultation of heart: regular rate and rhythm, positive systolic murmur Exam of carotid arteries: NORMAL Other: Gastrointestinal: Exam of abdomen: soft, nontender, nondistended bowel sounds present. PHYSICAL EXAMINATION: Patient walks with an antalgic gait. Left knee is cool to touch without erythema or signs of infection. Patient has fixed varus alignment approximately 8. Range of motion: Lacks 12 of full extension to 100 flexion. Sensation intact to light touch. IMAGING STUDIES: X-rays of the left knee reveal varus alignment with medial joint space narrowing, subchondral sclerosis, bony erosions and osteophyte formation consistent with severe stage IV osteoarthritis. Patient also has stage IV right knee osteoarthritis with bony erosion of the medial tibial plateau IMPRESSION: 1. Severe left knee osteoarthritis 2. Severe right knee osteoarthritis 3. History of atrial fibrillation with previous cardioversion: Currently on warfarin 4. Mitral valve disease 5. Hypertension 6. Hyperlipidemia 7. Thyroid disorder 8. Depression PLAN: Dr. Baldomero Hanks did discuss and review with the patient all treatment options including surgical versus nonsurgical options. Patient does wish to proceed with the above-stated procedure. Potential risks, benefits, and complications of the procedure were discussed in detail including but not limited to , infection, nerve and blood vessel damage, persistent pain, numbness, tingling, paresthesias, blood clot, pulmonary embolism, and requirement for possible further surgery. The patient expressed full understanding and has no further questions for the doctor. Patient does agree to proceed with the above-stated procedure and has signed the surgery consent form. This dictation was created using voice recognition software. Phonetic and/or grammatical errors may exist. ___ I have re-examined the patient. There are no clinical changes since date of exam. ___ See progress notes for changes. ___ Dictated on admission Date: Time: Signature:
[2019-12-14 13:07] LABS: Anion Gap 5 (5-15); BUN 35 mg/dL (7-18); BUN/Creat Ratio 28.9 RATIO (10-20); Calcium,Total 9.6 mg/dL (8.5-10.1); Chloride 100 mmol/L (98-107); Creatinine, Serum 1.21 mg/dL (0.55-1.02); EST Glomerular Filtration Rate 47 mL/min (>60); Est Glom Filt Rate - Afr Amer 57 mL/min (>60); Estimated Creatinine Clearance 31.96 ml/min; Glucose 95 mg/dL (74-106); Potassium 5.2 mmol/L (3.5-5.1); Sodium Level 133 mmol/L (136-145)
[2019-12-22 10:30] LABS: Absolute Lymphocyte Count 1.01 X10^3/uL (0.83-4.51); Absolute Neutrophil Count 4.9 X10^3/uL (2.0-7.7); Basophil# 0.02 X10^3/uL; Basophil% 0.3 % (0-1); Eosinophil# 0.27 X10^3/uL; Eosinophils% 3.8 % (0-5); Hematocrit 33.8 % (37-47); Hemoglobin 12.3 g/dL (12.0-15.0); Lymphocyte # 1.01 X10^3/ul (4.0); Mean Corp Hgb Conc 36.4 g/dL (32-36); Mean Corpuscular Hgb 31.6 pg (27.0-32.0); Mean Corpuscular Volume 86.9 fL (81-99); Mean Platelet Vol. 10.3 fl (6.2-12.0); Monocyte# 0.92 X10^3/uL; Monocyte% 12.8 % (0-10); NRBC Flagged by Analyzer 0 % (0-5); Neutrophil # 4.89 X10^3/uL (2.7-7.7); Platelet Count 253 K/mm3 (150-450); RBC Distribution Width CV 13.2 % (11.6-14.6); RBC Distribution Width SD 41.4 fl (35.1-43.9); Red Blood Count 3.89 M/mm3 (4.2-5.4); White Blood Count 7.2 K/mm3 (4.4-11.0)
[2019-12-22 11:06] LABS: Anion Gap 4 (5-15); BUN 17 mg/dL (7-18); Chloride 88 mmol/L (98-107); Creatinine, Serum 0.89 mg/dL (0.55-1.02); EST Glomerular Filtration Rate 67 mL/min (>60); Est Glom Filt Rate - Afr Amer 81 mL/min (>60); Estimated Creatinine Clearance 43.46 ml/min; Glucose 104 mg/dL (74-106); Potassium 4.4 mmol/L (3.5-5.1); Sodium Level 120 mmol/L (136-145)
== END ==
PROVIDERS: PCP Internal Medicine; Referring Provider Specialist; Visit Provider Specialist
DX: Z01.818 Encounter for other preprocedural examination (principal); I10 Essential (primary) hypertension
CPT/HCPCS: 36415; 80048; 84443; 85025; 87081

== ENCOUNTER → 2019-12-09 14:24 | Outpatient (CLI) | payer MEDICARE, OTHER, SELFPAY ==
[2019-12-09 13:23] VITALS: BMI 29.2
--- NOTE | 2019-12-09 14:27 | CT_ITS ---
EXAM DESCRIPTION: CT scan of the left lower extremity CLINICAL HISTORY: 69 years Female, LEFT KNEE, VARUS DEFORMITY, OSTEOARTHRITIS, INJURED YEARS AGO, HTN COMPARISON: None. TECHNIQUE: Axial CT scans were obtained from the left hip joint through the left ankle and coronal and sagittal reconstruction imaging was performed. This exam was performed according to our departmental dose-optimization program, which includes automated exposure control, adjustment of the mA and/or kV according to patient size and/or use of iterative reconstruction technique. FINDINGS: There is mild degenerative arthritis noted involving the left hip joint with a small spur seen off the superior lateral aspect of the acetabulum. No femoral fractures are identified but there is varus angulation of the left knee with narrowing and degenerative arthritis involving the medial compartment of the left knee. The left kneecap is off centered laterally with degenerative arthritis involving the lateral patellofemoral articulation. The left tibia shows a prominent spur off the medial aspect of the medial tibial plateau with subchondral sclerosis involving the medial tibial plateau. The left tibia and fibula were partly visualized. Normal. The left ankle is normal. CT/Extremity Lower without Contra IMPRESSION: 1. Mild degenerative arthritis of the left hip. 2. Varus angulation with severe degenerative arthritis of the left knee. Electronically Signed: Vikas Montalvo, at 7:55 EST Tel , Service support ,
== END ==
PROVIDERS: PCP Internal Medicine; Referring Provider Specialist; Visit Provider Specialist
DX: M17.12 Unilateral primary osteoarthritis, left knee (principal); M21.162 Varus deformity, not elsewhere classified, left knee; Z01.818 Encounter for other preprocedural examination; I10 Essential (primary) hypertension; M16.12 Unilateral primary osteoarthritis, left hip
CPT/HCPCS: 36415; 73700; 80048; 84443; 85025; 85610; 87081

== ENCOUNTER 2019-12-09 14:55 | Outpatient (RCR) | payer MEDICARE, OTHER, SELFPAY ==
[2019-11-06 15:10] VITALS: BMI 27.6
[2019-11-18 13:11] LABS: International Normalized Ratio 2.6; Prothrombin Time (Protime)PT. 27.8 SECONDS (11.7-14.9)
[2019-12-09 17:15] LABS: International Normalized Ratio 2.1; Prothrombin Time (Protime)PT. 23.8 SECONDS (11.7-14.9)
== END 2019-12-09 18:00 | disposition home or self-care (01) ==
LOC: LAB 14:55
PROVIDERS: Family Provider Internal Medicine; PCP Internal Medicine; Referring Provider Internal Medicine Cardiovascular Disease; Visit Provider Internal Medicine Cardiovascular Disease
DX: I48.0 Paroxysmal atrial fibrillation (principal); Z79.01 Long term (current) use of anticoagulants
CPT/HCPCS: 36415; 85610

== ENCOUNTER → 2019-12-10 16:21 | Outpatient (CLI) | payer MEDICARE, OTHER, SELFPAY ==
[2019-12-09 13:23] VITALS: BMI 29.2
[2019-12-10 17:19] LABS: Albumin, Serum 3.6 g/dL (3.2-5.0)
== END ==
PROVIDERS: PCP Internal Medicine; Referring Provider Specialist; Visit Provider Specialist
DX: Z01.812 Encounter for preprocedural laboratory examination (principal)
CPT/HCPCS: 36415; 82040

== ENCOUNTER 2019-12-23 17:55 | Inpatient (IN) | payer MEDICARE, OTHER, SELFPAY ==
[2019-12-09 13:23] VITALS: BMI 29.2
[2019-12-23 17:55] VITALS: BP 149/77; PULSE 62; RESP 18; TEMP 36.8; O2SAT 96; BMI 28.9
--- NOTE | 2019-12-23 19:11 | ED.VIS.GEN ---
History of Present Illness Chief Complaint: Nausea/Vomiting Informant: Patient Onset: Yesterday Current Severity: Moderate Maximum Severity: Moderate Narrative: Patient present secondary to nausea and vomiting. Symptoms started last evening. She was scheduled to undergo knee surgery today. When she had her preop blood work drawn yesterday she was noted to be hyponatremic with a sodium of 120 and her surgery was canceled. On December 13 her sodium was 133. Patient states she recently injured her shoulder as well and has been taking a few Percocet to help with pain. She is not sure if this was what may have made her nauseated. Patient is on Coumadin for history of paroxysmal A. fib. She had been off of the Coumadin since December 17 but restarted last evening. - Past Medical History (1) Depression Status: Chronic (2) Essential hypertension Status: Chronic (3) Hypothyroidism Status: Chronic (4) Mitral valve insufficiency Status: Chronic (5) Paroxysmal atrial fibrillation Status: Chronic Comment: DCCV on 09/09/2018; (6) Pure hypercholesterolemia Status: Chronic Past Medical History - Allergies and Home Meds Allergies/Adverse Reactions: Allergies Penicillins [PCN] Allergy (Verified 12/23/19 17:58) Unknown lisinopril Adverse Reaction (Intermediate, Verified 12/23/19 17:58) cough Primary Care Physician: Sandra Lopez MD [Primary Care Provider] - Prior records reviewed: Yes Surgical History: total hip arthroplasty, - - tubal Lives: Spouse/ Significant Other Smoking Status: Never smoker - Family History Maternal Family History: Family History (Last Reviewed 11/06/19 @ 15:13 by Taylor Green) Father Heart disease Family History: Reports: Dementia, - - thyroid Paternal Family History: Family History (Last Reviewed 11/06/19 @ 15:13 by Taylor Green) Father Heart disease Family History: Reports: - - thyroid Sibling Family History: Family History (Last Reviewed 11/06/19 @ 15:13 by Taylor Green) Father Heart disease Family History: Reports: - - thyroid Review of Systems General: Denies: Chills, Fever Eyes: Denies: Visual changes - bilaterally ENT: Denies: Bilateral ear pain Cardiovascular: Denies: Chest pain Respiratory: Denies: Dyspnea, Cough Gastrointestinal: Reports: Nausea, Vomiting. Denies: Abdominal pain, Diarrhea Genitourinary: Denies: Dysuria Musculoskeletal: Reports: Extremity Pain Neurological: Denies: Headache Allergy: Denies: Uticaria Physical Exam Vital Signs/Narrative: Vital Signs Temp Pulse Resp BP Pulse Ox 12/23/19 17:55 98.3 F 62 18 149/77 H 96 Inital Vital Signs reviewed: Yes General: Well nourished, Well developed Head: Normocephalic ENT: Moist mucous membranes Neck: Supple Cardiovascular: Regular rate, Regular rhythm Respiratory: No distress, CTA bilaterally Abdomen: Soft, Nontender, Hypoactive bowel sounds Skin: Normal color, No rash Neurological: Alert, Oriented x3 Psychological: Normal affect Diagnostic/Tx/Re-eval Laboratory Results 12/23/19 12/23/19 12/23/19 19:32 19:32 19:56 WBC 7.6 RBC 3.87 L Hgb 12.3 Hct 33.6 L MCV 86.8 MCH 31.8 MCHC 36.6 H RDW Std Deviation 40.9 RDW Coeff of Aida 13.2 Plt Count 268 MPV 10.3 Immature Gran % (Auto) 0.900 Neut % (Auto) 74.5 H Lymph % (Auto) 12.8 L [place] % (Auto) 9.9 Eos % (Auto) 1.6 Baso % (Auto) 0.3 Absolute Neuts (auto) 5.6 Absolute Lymphs (auto) 0.97 Nucleated RBC % 0 Sodium 115 L* Potassium 5.0 Chloride 84 L Carbon Dioxide 23.0 Anion Gap 8 BUN 19 H Creatinine 0.92 Estim Creat Clear Calc 44.16 Est GFR (MDRD) Af Amer 78 Est GFR (MDRD) Non-Af 65 BUN/Creatinine Ratio 20.7 H Glucose 124 H Calcium 9.3 Total Bilirubin 0.70 Direct Bilirubin 0.16 AST 31 ALT 28 Alkaline Phosphatase 97 Total Protein 6.9 Albumin 3.2 Globulin 3.7 Lipase 97 Urine Color Yellow Urine Clarity Sl. Cloudy Urine pH 6.0 Ur Specific [place] 1.020 Urine Protein 500 H Urine Glucose (UA) Normal Urine Ketones 5 H Urine Occult Blood 50 H Urine Nitrite Negative Urine Bilirubin Negative Urine Urobilinogen Normal Ur Leukocyte Esterase Negative Urine RBC 0-5 SEEN Urine WBC 0 SEEN Ur Squamous Epith Cells 0-5 SEEN Urine Bacteria 0 SEEN Urine Mucus 0 SEEN - Medical Decision Making Patient is given Zofran for nausea as well as IV fluids. Sodium level today has dropped even further down to 115. She will be admitted for further treatment. ED Disposition - Plan for ED Patient: Disposition: Home or Assisted Living Diagnosis: Hyponatremia Referrals: Sandra Lopez MD [Primary Care Provider] -
[2019-12-23] MEDS: 0.9% Normal Saline 1,000 ML 1000 ML IV (19:22)
[2019-12-23] MEDS: Ondansetron 4 MG/2 ML Vial IV (19:22)
[2019-12-23 19:36] LABS: Absolute Lymphocyte Count 0.97 X10^3/uL (0.83-4.51); Absolute Neutrophil Count 5.6 X10^3/uL (2.0-7.7); Basophil# 0.02 X10^3/uL; Basophil% 0.3 % (0-1); Eosinophil# 0.12 X10^3/uL; Eosinophils% 1.6 % (0-5); Hematocrit 33.6 % (37-47); Hemoglobin 12.3 g/dL (12.0-15.0); Lymphocyte # 0.97 X10^3/ul (4.0); Lymphocyte % 12.8 % (19-41); Mean Corp Hgb Conc 36.6 g/dL (32-36); Mean Corpuscular Hgb 31.8 pg (27.0-32.0); Mean Corpuscular Volume 86.8 fL (81-99); Mean Platelet Vol. 10.3 fl (6.2-12.0); Monocyte# 0.75 X10^3/uL; Monocyte% 9.9 % (0-10); NRBC Flagged by Analyzer 0 % (0-5); Neutrophil # 5.63 X10^3/uL (2.7-7.7); Neutrophil % 74.5 % (47-70); Platelet Count 268 K/mm3 (150-450); RBC Distribution Width CV 13.2 % (11.6-14.6); RBC Distribution Width SD 40.9 fl (35.1-43.9); Red Blood Count 3.87 M/mm3 (4.2-5.4); White Blood Count 7.6 K/mm3 (4.4-11.0)
[2019-12-23 20:06] LABS: AST(SGOT) 31 U/L (15-37); Alanine Aminotransfer ALT/SGPT 28 U/L (13-56); Albumin, Serum 3.2 g/dL (3.2-5.0); Alkaline Phosphatase 97 U/L (45-117); Anion Gap 8 (5-15); BUN 19 mg/dL (7-18); BUN/Creat Ratio 20.7 RATIO (10-20); Bilirubin, Direct 0.16 mg/dL (0.00-0.30); Calcium,Total 9.3 mg/dL (8.5-10.1); Chloride 84 mmol/L (98-107); Creatinine, Serum 0.92 mg/dL (0.55-1.02); EST Glomerular Filtration Rate 65 mL/min (>60); Est Glom Filt Rate - Afr Amer 78 mL/min (>60); Estimated Creatinine Clearance 44.16 ml/min; Globulin 3.7 g/dL (2.2-4.2); Glucose 124 mg/dL (74-106); Lipase 97 U/L (73-393); Protein, Total 6.9 g/dL (6.4-8.2); Sodium Level 115 mmol/L (136-145)
[2019-12-23 20:10] LABS: Bacteria 0 SEEN /hpf (None Seen); Mucous, Urine 0 SEEN /hpf (<or=2+)
[2019-12-23 20:37] LABS: Color, Urine Yellow (Yellow); Glucose, Dipstick Normal (Normal); Ketone-Dipstick 5 mg/dl (Negative); Leukocyte Esterase-Dipstick Negative /ul (Negative); Nitrite-Dipstick Negative (Negative); Occult Blood-Urine 50 /ul (Negative); Protein-Dipstick 500 mg/dl (Negative); Urine Bilirubin Dipstick Negative (Negative); Urine Clarity Sl. Cloudy (Clear); Urine Urobilinogen Normal (Normal)
[2019-12-23 20:45] LABS: Squamous Epithelial Cells - UA 0-5 SEEN /hpf (5-10); White Blood Cells 0 SEEN /hpf (0-5)
[2019-12-23 20:46] LABS: Red Blood Cells-Urine 0-5 SEEN /hpf (0-5)
--- NOTE | 2019-12-23 20:57 | HP.PCM_ITS ---
Problem List (1) Hyponatremia Status: Acute (2) Nausea and vomiting Status: Acute Qualifiers: Vomiting type: unspecified Vomiting Intractability: unspecified Qualified Code(s): R11.2 - Nausea with vomiting, unspecified (3) Constipation Status: Acute (4) Anxiety and depression Status: Chronic (5) Valvular heart disease Status: Chronic (6) Pure hypercholesterolemia Status: Chronic (7) Essential hypertension Status: Chronic (8) Paroxysmal atrial fibrillation Status: Chronic Comment: DCCV on 09/09/2018; (9) Hypothyroidism Status: Chronic Qualifiers: Hypothyroidism type: unspecified Qualified Code(s): E03.9 - Hypothyroidism, unspecified History of Present Illness Date of Admission: 12/23/19 Chief Complaint: Abnormal labs, N/V The patient is a 69 y/o F w/ PMHx: Chronic Hyponatremia, PAF, CKD stage III, Depression and Anxiety, Hypothyroidism, Valvular Heart Disease who presents to the [facility] ED on 12/23/19 with history of recent outpatient Na level 12/22/19 noted to be 120, prior to this 12/14/19 Na 133 with ongoing nausea and emesis recently with noted ongoing narcotic usage secondary to OA pain with recent planned left total knee replacement surgery on day of ED presentation which was deferred given abnormal pre-op labs and acute presentation. Of notes she has been off coumadin since 12/18/19 for planned surgery but restarted with dose evening prior. Patient also notes that she recently has had decreased bowel movements with recent start of narcotics over the last several days with mild associated abdominal cramping. Work-up in the ED included T 98.3, heart rate 62, BP 149/77, respiratory rate 18, 96% on room air, CBC with WBC 7.6, hemoglobin 12.3, platelet 268 with no market shift, CMP with sodium 115, chloride 84, BUN/creatinine 19/0.92, glucose 124, urinalysis with this is a gravity 1.020, protein 500, ketones 5, occult blood 50, negative nitrite, negative leukocyte esterace. In the ED patient ministered normal saline, Zofran therapy. 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) Pure hypercholesterolemia (Chronic) Essential hypertension (Chronic) Paroxysmal atrial fibrillation (Chronic) DCCV on 09/09/2018; Depression (Chronic) Proteinuria (Chronic) Hypothyroidism (Chronic) Mitral valve insufficiency (Chronic) Edema (Chronic) Medical History: Medical History (Last Reviewed 11/06/19 @ 15:13 by Taylor Green) Non-rheumatic tricuspid valve insufficiency (Acute) I36.1 Non-rheumatic mitral regurgitation (Chronic) 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) Z79.01 Pure hypercholesterolemia (Chronic) E78.00 Essential hypertension (Chronic) I10 Paroxysmal atrial fibrillation (Chronic) I48.0 DCCV on 09/09/2018; Depression (Chronic) F32.9 Proteinuria (Chronic) R80.9 Hypothyroidism (Chronic) E03.9 Mitral valve insufficiency (Chronic) I34.0 SOB (shortness of breath) (Resolved) R06.02 Edema (Chronic) R60.9 CKD (chronic kidney disease) N18.9 Hypothyroidism E03.9 Allergies Penicillins [PCN] Allergy (Verified 12/23/19 17:58) Unknown lisinopril Adverse Reaction (Intermediate, Verified 12/23/19 17:58) cough Home Medications: Ambulatory Orders Medication Instructions Recorded Atorvastatin Calcium [Lipitor] 40 mg PO QHS 08/16/17 Fluoxetine [Prozac] 20 mg PO DAILY 08/16/17 Losartan Potassium [Cozaar] 50 mg PO BID 08/16/17 Spironolactone 25 mg PO DAILY 07/17/18 atenolol 50 mg tablet 50 mg PO DAILY tab 04/30/19 levothyroxine 125 mcg tablet 125 mcg PO DAILY 04/30/19 cholecalciferol (vitamin D3) 125 5,000 unit PO DAILY 11/06/19 mcg (5,000 unit) tablet Calcium Carbonate [Calcium] 600 mg PO DAILY 12/09/19 Diltiazem HCl [Diltiazem 24Hr ER 240 mg PO DAILY 12/09/19 (Cd)] Mv-Min/FA/Vit K/Lycop/Lut/Zeax 1 tab PO DAILY 12/09/19 [Ocuvite Eye + Multi Tablet] Warfarin Sodium [Coumadin] 5 mg PO SUMOTUWETH 12/09/19 Acetaminophen [Tylenol Extra 500 mg PO Q6H PRN PRN 12/23/19 Strength] Ondansetron [Ondansetron Odt] 4 mg PO Q8H PRN PRN 12/23/19 Oxycodone HCl/Acetaminophen 1 tab PO Q6H PRN PRN 12/23/19 [Percocet 5/325] Warfarin [Coumadin (PBKC)] 7.5 mg PO FRSA 12/23/19 buPROPion tablets [Wellbutrin 75 mg PO DAILY 12/23/19 tablets] Surgical History: Surgical History (Last Reviewed 11/06/19 @ 15:13 by Taylor Green) History of carpal tunnel surgery Z92.89 History of dilatation and curettage Z98.890 History of hip replacement, total Z96.649 Rt Hip History of tubal ligation Z98.51 Surgical History: total hip arthroplasty, - - Carpal tunnel surgery, D&C, R total hip replacement, tubal ligation, breast lumpectomy x2. 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 Lives: Spouse/ Significant Other Smoking Status: Never smoker Tobacco Use: Non-smoker Alcohol: None Drugs: None - *Family History Maternal Family History: Family History (Last Reviewed 11/06/19 @ 15:13 by Taylor Green) Father Heart disease History Items: Dementia, - - thyroid Paternal Family History: Family History (Last Reviewed 11/06/19 @ 15:13 by Taylor Green) Father Heart disease History Items: - - thyroid Sibling Family History: Family History (Last Reviewed 11/06/19 @ 15:13 by Taylor Green) Father Heart disease History Items: - - thyroid Review of Systems Constitutional: Reports: Anorexia, Malaise, Weakness, Fatigue. Denies: Chills, Fever, Weight Change HEENT: Denies: Head Aches, Sinus Congestion, Sinus Drainage Cardiovascular: Denies: Chest Pain, Palpitations Respiratory: Denies: Cough, Shortness of breath at rest, Sputum production Gastrointestinal: Reports: Abdominal Pain, Constipation, Nausea, Vomiting Genitourinary: Denies: Dysuria Musculoskeletal: Reports: Joint Pain, Joint stiffness. Denies: Joint Tenderness Skin: Denies: Rash, Wounds Neurological: Denies: Numbness, Tingling, Focal weakness Psychiatric: Reports: Anxiety, Depression. Denies: Homicidal Ideations, Suicidal Ideations Hematologic/ Lymphatic: Denies: Easy Bruising, Easy Bleeding VTE Information - Inpt Only VTE Present on Admission: No VTE Mechan Device Prophylaxis: SCD's VTE Pharm Prophylaxis ordered?: No Reason prophylaxis not ordered:: Treatment Not Indicated - Maintain on home coumadin with INR trending. Patient Problems: Active and Suspected Problems (Last Reviewed 11/06/19 @ 15:13 by Taylor Green) Hyponatremia (Acute) Constipation (Acute) Nausea and vomiting (Acute) Subjective: Seated upright in the ED bed, holding emesis bag, fatigued appearance, notes feeling mildly improved since antiemetics. Objective: Physical Examination: General: awake, alert, oriented x 3 and cooperative, seated upright in the ED bed, fatigued appearance, holding emesis bag but notes mild improvement since antiemetics. Skin: normal color, turgor, no icterus, cyanosis. HEENT: AT/NC, EOMI, PERRLA, dry MM, no carotid bruits or JVD noted. Lungs: CTA bilaterally, moderate effort, moderate decrease BL bases, no rales, ronchi or wheezing. Heart: Regular rate and rhythm; no gallop, rub audible. Abdomen: soft, mild generalized discomfort with palpation, ND, mildly hyperactive BS, no HSM. Extremities: no cyanosis, clubbing, or edema. Neurological: patient awake, alert, oriented x 3; cognitive function appears baseline intact; pupils equally reactive to light and accomodation; cranial nerves II-XII grossly normal, moving all 4 extremities, no focal deficits, strength moderately to severely global decrease secondary to acute presentation. Psychiatric: affect appears fatigued, no acute evidence of depressive or anxiety feelings. - Physical Exam Vitals/I&O's: Vital Signs Temp Pulse Resp BP Pulse Ox 98.3 F 62 18 149/77 H 96 12/23/19 17:55 12/23/19 17:55 12/23/19 17:55 12/23/19 17:55 12/23/19 17:55 Oxygen Delivery Method Room Air Weight: 153 lb 3.54 oz Body Mass Index (BMI) 28.9 Laboratory Results 12/23/19 19:32: WBC 7.6, RBC 3.87 L, Hgb 12.3, Hct 33.6 L, MCV 86.8, MCH 31.8, MCHC 36.6 H, RDW Std Deviation 40.9, RDW Coeff of Aida 13.2, Plt Count 268, MPV 10.3, Immature Gran % (Auto) 0.900, Neut % (Auto) 74.5 H, Lymph % (Auto) 12.8 L, [place] % (Auto) 9.9, Eos % (Auto) 1.6, Baso % (Auto) 0.3, Absolute Neuts (auto) 5.6, Absolute Lymphs (auto) 0.97, Nucleated RBC % 0 12/23/19 19:32: Sodium 115 L*, Potassium 5.0, Chloride 84 L, Carbon Dioxide 23.0, Anion Gap 8, BUN 19 H, Creatinine 0.92, Estim Creat Clear Calc 44.16, Est GFR (MDRD) Af Amer 78, Est GFR (MDRD) Non-Af 65, BUN/Creatinine Ratio 20.7 H, Glucose 124 H, Calcium 9.3, Total Bilirubin 0.70, Direct Bilirubin 0.16, AST 31, ALT 28, Alkaline Phosphatase 97, Total Protein 6.9, Albumin 3.2, Globulin 3.7, Lipase 97 12/23/19 19:56: Urine Color Yellow, Urine Clarity Sl. Cloudy, Urine pH 6.0, Ur Specific [place] 1.020, Urine Protein 500 H, Urine Glucose (UA) Normal, Urine Ketones 5 H, Urine Occult Blood 50 H, Urine Nitrite Negative, Urine Bilirubin Negative, Urine Urobilinogen Normal, Ur Leukocyte Esterase Negative, Urine RBC 0-5 SEEN, Urine WBC 0 SEEN, Ur Squamous Epith Cells 0-5 SEEN, Urine Bacteria 0 SEEN, Urine Mucus 0 SEEN Current Medications Sodium Chloride () 1,000 mls @ 150 mls/hr IV .[id number] [facility] Assessment/Plan All Active Problems (Last Reviewed 11/06/19 @ 15:13 by Taylor Green) Hyponatremia (Acute) Constipation (Acute) Nausea and vomiting (Acute) Non-rheumatic tricuspid valve insufficiency (Acute) SOB (shortness of breath) (Resolved) The patient is a 69 y/o F w/ PMHx: Chronic Hyponatremia, PAF, CKD stage III, Depression and Anxiety, Hypothyroidism, Valvular Heart Disease who presents to the [facility] ED on 12/23/19 with history of recent outpatient Na level 12/22/19 noted to be 120, prior to this 12/14/19 Na 133 with ongoing nausea and emesis recently with noted ongoing narcotic usage secondary to OA pain with recent planned knee surgery on day of ED presentation which was deferred given abnormal pre-op labs and acute presentation. 1. Acute on Chronic Hyponatremia, Hypovolemic secondary to GI losses, Possibly Gastroenteritis versus Side Effect Narcotic therapy: Will admit to PCU given severity of level, maintain on telemetry monitoring, continue IVFs as suspected hyponatremic component, obtain FeNa, TSH and FT4, mag, UOsm levels to futher assess, obtain serial BMPs to avoid over correction, hold diuretic medications. If sodium level not improving would plan consultation with nephrology, family and patient requested Dr. Hernandez. 2. PAF: Patient of note s/p prior cardioversions, we will continue patient home atenolol, diltiazem, Coumadin with INR trending, requesting INR upon admission. 3. Valvular heart disease: 11/18/19 ECHO w/ normal LV systolic function, EF 60%, moderately enlarged LA, mild diffuse MV thickening, mitral valve doming, moderate MVI, moderate TVI, mild focal AV calcification, moderate PVI, RVSP 45 mmHg, transmitral diastolic flow velocity suggestive of diastolic dysfunction. 4. Hypertension: Continue home regimen including atenolol, diltiazem, temporarily holding patient ARB and spironolactone given acute presenation #1, PRN hydralazine. 5. Hyperlipidemia: Continue home statin regimen. 6. Hypothyroidism: Continue home synthroid regimen, TSH and FT4 pending. 7. Chronic Kidney Disease Stage III: Admission BUN/Cr 19/0.92, similar baseline, repeat BMP serially as noted given acute presentation #1. 8. Anxiety and depression: We will temporarily hold patient Prozac and Wellbut rin regimen as may be contributing to hyponatremia as noted #1. 9. DVT prophylaxis: SCDs, continue Coumadin with INR trending. Inpatient E&M: [id number] Init Hosp L3
[2019-12-23 21:06] VITALS: BP 151/91; PULSE 63; RESP 18; TEMP 36.8; O2SAT 96
[2019-12-23 21:07] VITALS: BP 151/91; PULSE 63; RESP 18; TEMP 36.8; O2SAT 96
[2019-12-23] MEDS: 0.9% Normal Saline 1,000 ML 150 ML IV (21:11)
[2019-12-23 22:36] VITALS: BMI 24.8
[2019-12-23] MEDS: 0.9% Normal Saline 1,000 ML 125 ML IV (23:00)
[2019-12-23 23:10] VITALS: BP 137/67; PULSE 60; RESP 18; TEMP 36.9; O2SAT 94
[2019-12-23 23:22] VITALS: BMI 24.8
[2019-12-23 23:36] VITALS: O2SAT 94
[2019-12-23 23:42] LABS: International Normalized Ratio 1.2; Prothrombin Time (Protime)PT. 15.4 SECONDS (11.7-14.9)
[2019-12-23] MEDS: Senna/Docusate Sodium 1 Tablet 2 TABLET PO (23:43)
[2019-12-23] MEDS: Atorvastatin Calcium 40 MG Tablet PO (23:44)
[2019-12-23] MEDS: Famotidine 20 MG Tablet PO (23:44)
[2019-12-23] MEDS: Acetaminophen 325 MG Tablet 650 MG PO (23:48)
[2019-12-24] VITALS (10 sets, daily range): BP systolic 122–152; BP diastolic 70–74; PULSE 52–66; RESP 17–18; TEMP 36.7–36.9; O2SAT 94–96
[2019-12-24] LABS: Anion Gap 7 (5-15); BUN 17 mg/dL (7-18); Calcium,Total 8.5 mg/dL (8.5-10.1); Chloride 88 mmol/L (98-107); Creatinine, Serum 0.85 mg/dL (0.55-1.02); EST Glomerular Filtration Rate 71 mL/min (>60); Est Glom Filt Rate - Afr Amer 85 mL/min (>60); Free T3 1.2 pg/mL (2.18-3.98); Glucose 118 mg/dL (74-106); Magnesium 1.5 mg/dL (1.6-2.6); Potassium 4.6 mmol/L (3.5-5.1); Sodium Level 119 mmol/L (136-145)
[2019-12-24] MEDS: Ondansetron 4 MG/2 ML Vial IV (00:43)
[2019-12-24 04:45] LABS: Anion Gap 11 (5-15); BUN 16 mg/dL (7-18); BUN/Creat Ratio 21.3 RATIO (10-20); Calcium,Total 8.3 mg/dL (8.5-10.1); Chloride 89 mmol/L (98-107); Creatinine, Serum 0.75 mg/dL (0.55-1.02); EST Glomerular Filtration Rate 81 mL/min (>60); Est Glom Filt Rate - Afr Amer 99 mL/min (>60); Estimated Creatinine Clearance 50.41 ml/min; Glucose 105 mg/dL (74-106); Potassium 4.4 mmol/L (3.5-5.1); Sodium Level 121 mmol/L (136-145)
[2019-12-24 06:47] LABS: Absolute Lymphocyte Count 1.14 X10^3/uL (0.83-4.51); Absolute Neutrophil Count 3.2 X10^3/uL (2.0-7.7); Basophil# 0.02 X10^3/uL; Basophil% 0.4 % (0-1); Eosinophil# 0.21 X10^3/uL; Eosinophils% 3.9 % (0-5); Hematocrit 27.6 % (37-47); Hemoglobin 10.1 g/dL (12.0-15.0); Lymphocyte # 1.14 X10^3/ul (4.0); Mean Corp Hgb Conc 36.6 g/dL (32-36); Mean Corpuscular Hgb 32.3 pg (27.0-32.0); Mean Corpuscular Volume 88.2 fL (81-99); Mean Platelet Vol. 10.4 fl (6.2-12.0); Monocyte# 0.78 X10^3/uL; Monocyte% 14.3 % (0-10); NRBC Flagged by Analyzer 0 % (0-5); Neutrophil # 3.22 X10^3/uL (2.7-7.7); Neutrophil % 59.1 % (47-70); Platelet Count 226 K/mm3 (150-450); RBC Distribution Width CV 13.2 % (11.6-14.6); RBC Distribution Width SD 42.5 fl (35.1-43.9); Red Blood Count 3.13 M/mm3 (4.2-5.4); White Blood Count 5.4 K/mm3 (4.4-11.0)
[2019-12-24] MEDS: 0.9% Normal Saline 1,000 ML 125 ML IV ×2 (06:47→14:58)
[2019-12-24] MEDS: Levothyroxine 125 MCG Tablet PO (06:47)
[2019-12-24 06:58] LABS: International Normalized Ratio 1.3; Prothrombin Time (Protime)PT. 15.6 SECONDS (11.7-14.9)
[2019-12-24 07:07] LABS: Anion Gap 6 (5-15); BUN 15 mg/dL (7-18); BUN/Creat Ratio 19.2 RATIO (10-20); Calcium,Total 8.3 mg/dL (8.5-10.1); Chloride 90 mmol/L (98-107); Creatinine, Serum 0.78 mg/dL (0.55-1.02); EST Glomerular Filtration Rate 78 mL/min (>60); Est Glom Filt Rate - Afr Amer 94 mL/min (>60); Estimated Creatinine Clearance 50.41 ml/min; Glucose 89 mg/dL (74-106); Sodium Level 120 mmol/L (136-145)
[2019-12-24 08:21] LABS: Hemoglobin A1c 5.6 % (4.2-6.3)
[2019-12-24] MEDS: dilTIAZem CD 240 MG Capsule PO (09:00)
[2019-12-24] MEDS: Famotidine 20 MG Tablet PO ×2 (09:00→21:05)
[2019-12-24] MEDS: Atenolol 50 MG Tablet PO (09:00)
[2019-12-24 11:03] LABS: Osmolality, Urine 325 mOsm/KG
[2019-12-24 11:11] LABS: Urine Sodium 60 mmol/L (Not Establ.)
[2019-12-24 11:24] LABS: Anion Gap 6 (5-15); BUN 13 mg/dL (7-18); Calcium,Total 8.3 mg/dL (8.5-10.1); Chloride 91 mmol/L (98-107); Creatinine, Serum 0.81 mg/dL (0.55-1.02); EST Glomerular Filtration Rate 75 mL/min (>60); Est Glom Filt Rate - Afr Amer 90 mL/min (>60); Estimated Creatinine Clearance 62.23 ml/min; Glucose 101 mg/dL (74-106); Potassium 4.3 mmol/L (3.5-5.1); Sodium Level 122 mmol/L (136-145)
--- NOTE | 2019-12-24 11:40 | CASEMGMT ---
RN PATRICIA INSTRUCTIONAL COACH CM to room to meet with patient for initial transition planning/care coordination assessment. RN PATRICIA introduced self and role at [facility]. Pt voices understanding and consents to assessment at this time. Pt resting in bed in no distress at this time. Sister at bedside and pt agreeable to her being present during assessment. Pt is A/O at this time and answers all questions appropriately. Care providers, pharmacy, and demographics verified/updated at this time. PCP: Dr Lopez Specialists: Dr Hinojosa-cardiology, Dr Mena--gate keeper in [place], Orthopedic MD. Preferred Pharmacy: [facility] Insurance: MCR, [employer] Prescription Benefit: Yes Living Will/HPOA: Has both LW and Healthcare DAVEY, who is her daughter, Ghazal Simeon. Records of both found on file @ [facility]. LNOK: Daughter/POA, Ghazal Simeon Living Arrangements: Lives with her significant other/boyfriend, Pernell, in a trailer w/3-4 steps to enter. Independent w/ADL's and IADL's. States Pernell works outside the home, but could help if needed, when available. Transportation: Pt states drives self and states no transportation concerns at this time. Pernell will take her home @ d/c. DME: Denies using any DME and denies needs. Has a walker she is borrowing from her brother for when she has knee surgery. HHC/SNF: No history of either and denies needs. Pt wishes to return home and states has no concerns with going home at time of discharge. CM to follow for any discharge planning/needs. Pt voices no concerns/needs at this time. Advised pt to ask for CM if any further questions/concerns/needs arise. Voices understanding. PLAN: Home Phong BROOKS RN, CM
[2019-12-24] MEDS: Acetaminophen 325 MG Tablet 650 MG PO ×2 (15:06→23:15)
--- NOTE | 2019-12-24 16:09 | CHAPLAIN ---
Type of Pastoral Visit _x__ Initial Visit ___ Follow-up Visit ___ On-call Visit ___ General Patient Visit ___ Spiritual Assessment ___ Family Conference ___ Bereavement ___ Rapid Response ___ Code Blue ___ Other (describe below) Pastoral Care Referral From _x__ Patient ___ Family ___ Nurse ___ Physician ___ Back Tender Insulation Board ___ Director Search Marketing Strategies ___ Other (describe below) Sacrament/Intervention _x__ Active listening ___ Anointing ___ Quaker ___ Bereavement ___ Communion _x__ Kamryn exploration ___ _x__ Life review _x__ Prayer ___ Reconciliation ___ Sacrament of Sick ___ Supportive presence ___ Wedding ___ Other (describe below) Pastoral Comments
[2019-12-24] MEDS: Atorvastatin Calcium 40 MG Tablet PO (21:05)
[2019-12-25] VITALS (7 sets, daily range): BP systolic 142–157; BP diastolic 71–77; PULSE 54–64; RESP 14–17; TEMP 36.8–37; O2SAT 93–97
[2019-12-25] MEDS: 0.9% Normal Saline 1,000 ML 75 ML IV (02:26)
[2019-12-25] MEDS: Levothyroxine 125 MCG Tablet PO (05:35)
[2019-12-25] MEDS: oxyCODONE 5 MG Tablet PO (05:35)
[2019-12-25] MEDS: Acetaminophen 325 MG Tablet 650 MG PO (05:35)
[2019-12-25 09:20] LABS: Anion Gap 6 (5-15); BUN 9 mg/dL (7-18); BUN/Creat Ratio 11.6 RATIO (10-20); Calcium,Total 8.4 mg/dL (8.5-10.1); Chloride 92 mmol/L (98-107); Creatinine, Serum 0.78 mg/dL (0.55-1.02); EST Glomerular Filtration Rate 78 mL/min (>60); Est Glom Filt Rate - Afr Amer 95 mL/min (>60); Estimated Creatinine Clearance 50.41 ml/min; Glucose 140 mg/dL (74-106); Potassium 4.1 mmol/L (3.5-5.1); Sodium Level 123 mmol/L (136-145)
[2019-12-25] MEDS: dilTIAZem CD 240 MG Capsule PO (09:21)
[2019-12-25] MEDS: Atenolol 50 MG Tablet PO (09:21)
[2019-12-25] MEDS: Famotidine 20 MG Tablet PO (09:21)
[2019-12-25 09:38] LABS: Osmolality, Serum 249 mOsm/KG (280-301)
--- NOTE | 2019-12-25 10:17 | PCM.CONS.R ---
Consultation - Renal PCP/ Referring MD: Requesting physician: [] Primary care physician: Sandra Lopez MD - History of Present Illness History of Present Illness: The patient is a 69 year old F PMH of PAF, depression, hypothyroidism, and chronic hyponatremia Pt presented to [facility] ED on 12/22 for hyponatremia . Pt was sent for Na level of 120 . In ED Na was found to have Na of 115 Pt has been having nausea.vomiting for a week before presenting to the hospital . Pt is taking aldactone at home . Aldactone was stopped and patient started on NS at 115 cc/hour. Na level corrected to 120 in 9 hrs . NS IV rate was decreased to 75 cc/hour Na level after 24 hrs is 123 . Pt still has nausea this morning. She said she in [facility] No headache. No vomiting ROS: 12 systems review is negative except what mentioned in HPI [] - Allergies Allergies: Allergies lisinopril Adverse Reaction (Intermediate, Verified 12/23/19 17:58) cough Penicillins [PCN] Adverse Reaction (Mild, Verified 12/23/19 22:42) Other redness at injection site, was receiving monthly injections. - Current Medications Current Medications: Current Medications Acetaminophen (Tylenol) 650 mg PO Q6H PRN PRN PRN Reason: Pain Score 1-10/Temp > 100.7 F Last Admin: 12/25/19 05:35 Dose: 650 mg Documented by: Albuterol Sulfate (Ventolin Aerosols) 2.5 mg INHALATION Q2H PRN PRN PRN Reason: SOB/Wheezing Atenolol (Tenormin (Beta Yamilet)) 50 mg PO DAILY [facility] Last Admin: 12/25/19 09:21 Dose: 50 mg Documented by: Atorvastatin Calcium (Lipitor) 40 mg PO QHS [facility] Last Admin: 12/24/19 21:05 Dose: 40 mg Documented by: Diltiazem HCl (Cardizem Cd) 240 mg PO DAILY [facility] Last Admin: 12/25/19 09:21 Dose: 240 mg Documented by: Famotidine (Pepcid) 20 mg PO BID [facility] Last Admin: 12/25/19 09:21 Dose: 20 mg Documented by: Sodium Chloride () 1,000 mls @ 150 mls/hr IV .Q6H40M [facility] Last Infusion: 12/25/19 08:39 Dose: 150 mls/hr Documented by: Sodium Chloride () 250 mls @ 15 mls/hr IV .[id number] PRN PRN Reason: Saline Flush Levothyroxine Sodium (Synthroid) 125 mcg PO DAILY@0600 [facility] Last Admin: 12/25/19 05:35 Dose: 125 mcg Documented by: Melatonin (Melatonin) 3 mg PO QHS PRN PRN PRN Reason: INSOMNIA Morphine Sulfate () 2 mg IV Q3H PRN PRN PRN Reason: Pain Score 6-10/10 Ondansetron HCl (Zofran) 4 mg IV Q8H PRN PRN PRN Reason: NAUSEA/VOMITING Last Admin: 12/24/19 00:43 Dose: 4 mg Documented by: Oxycodone HCl (Oxyir) 5 mg PO Q6H PRN PRN PRN Reason: Pain Score 4-5/10 Last Admin: 12/25/19 05:35 Dose: 5 mg Documented by: Sodium Chloride () 10 - 40 ml IV UD PRN PRN Reason: SALINE FLUSH Warfarin Sodium (Coumadin (Pbkc)) 5 mg PO SuMoTuWeTh@1700 [facility] Last Admin: 12/24/19 17:47 Dose: 5 mg Documented by: Warfarin Sodium (Coumadin (Pbkc)) 7.5 mg PO FrSa@1700 [facility] - Past Medical History Past Medical History (Chronic Problems): Chronic Problems (Last Reviewed 11/06/19 @ 15:13 by Taylor Green) Anxiety and depression (Chronic) Valvular heart disease (Chronic) Non-rheumatic mitral regurgitation (Chronic) care home current use of anticoagulant (Chronic) Pure hypercholesterolemia (Chronic) Essential hypertension (Chronic) Paroxysmal atrial fibrillation (Chronic) [facility] on 09/09/2018; Depression (Chronic) Proteinuria (Chronic) Hypothyroidism (Chronic) Mitral valve insufficiency (Chronic) Edema (Chronic) - Past Surgical History Surgical History: total hip arthroplasty, - - Carpal tunnel surgery, D&C, R total hip replacement, tubal ligation, breast lumpectomy x2. - Social History Smoking Status: Never smoker Alcohol: None Drugs: None - Family History Maternal Family History: Family History (Last Reviewed 11/06/19 @ 15:13 by Taylor Green) Father Heart disease History Items: Dementia, - - thyroid Paternal Family History: Family History (Last Reviewed 11/06/19 @ 15:13 by Taylor Green) Father Heart disease History Items: - - thyroid Sibling Family History: Family History (Last Reviewed 11/06/19 @ 15:13 by Taylor Green) Father Heart disease History Items: - - thyroid Patient Problems: Active and Suspected Problems (Last Reviewed 11/06/19 @ 15:13 by Taylor Green) Hyponatremia (Acute) Constipation (Acute) Nausea and vomiting (Acute) - Physical Exam Vitals/I&O's: Vital Signs Temp Pulse Resp BP Pulse Ox 98.2 F 64 14 157/77 H 97 12/25/19 09:22 12/25/19 09:22 12/25/19 09:22 12/25/19 09:22 12/25/19 09:22 Oxygen Delivery Method Room Air Weight: 69.8 kg Body Mass Index (BMI) 24.8 Intake and Output for Last 24 Hours 12/23/19 12/24/19 12/25/19 23:59 23:59 23:59 Intake Total 1275 / 1275 3612.92 / 3612.92 586.25 / 586.25 Output Total 3225 / 3225 1000 / 1000 Balance 1275 / 1275 387.92 / 387.92 -413.75 / -413.75 General: Alert, Oriented x3 HEENT: Atraumatic Oral: Moist Mucosa Neck: Supple, No JVD Lungs: Clear to auscultation, Normal air movement, No rhonchi, No wheeze Cardiovascular: Regular rate, Regular Rhythm, Normal S1, Normal S2 Abdomen: Bowel Sounds Present, Soft, Non Tender, Non-Distended Extremities: No clubbing, No cyanosis, No edema Skin: No rashes Musculoskeletal: No Tenderness to Palpation of Joints or Extremities Lymphatic: No Cervical, Supraclavicular, or Inguinal Adenopathy Neurological: Cranial nerves II-XII grossly intact, Neuro grossly intact Psych/Mental Status: Normal Affect Laboratory Results 12/24/19 00:14: Urine Osmolality 325 12/24/19 00:14: Urine Creatinine 38.80 12/24/19 00:14: Ur Random Sodium 60 12/24/19 10:44: Sodium 122 L, Potassium 4.3, Chloride 91 L, Carbon Dioxide 25.0, Anion Gap 6, BUN 13, Creatinine 0.81, Estim Creat Clear Calc 62.23, Est GFR (MDRD) Af Amer 90, Est GFR (MDRD) Non-Af 75, BUN/Creatinine Ratio 16.0, Glucose 101, Calcium 8.3 L 12/25/19 08:42: Sodium 123 L, Potassium 4.1, Chloride 92 L, Carbon Dioxide 25.0, Anion Gap 6, BUN 9, Creatinine 0.78, Estim Creat Clear Calc 50.41, Est GFR (MDRD) Af Amer 95, Est GFR (MDRD) Non-Af 78, BUN/Creatinine Ratio 11.6, Glucose 140 H, Calcium 8.4 L 12/25/19 08:42: Serum Osmolality 249 L Current Medications Acetaminophen (Tylenol) 650 mg PO Q6H PRN PRN PRN Reason: Pain Score 1-10/Temp > 100.7 F Last Admin: 12/25/19 05:35 Dose: 650 mg Documented by: Albuterol Sulfate (Ventolin Aerosols) 2.5 mg INHALATION Q2H PRN PRN PRN Reason: SOB/Wheezing Atenolol (Tenormin (Beta Yamilet)) 50 mg PO DAILY [facility] Last Admin: 12/25/19 09:21 Dose: 50 mg Documented by: Atorvastatin Calcium (Lipitor) 40 mg PO QHS [facility] Last Admin: 12/24/19 21:05 Dose: 40 mg Documented by: Diltiazem HCl (Cardizem Cd) 240 mg PO DAILY [facility] Last Admin: 12/25/19 09:21 Dose: 240 mg Documented by: Famotidine (Pepcid) 20 mg PO BID [facility] Last Admin: 12/25/19 09:21 Dose: 20 mg Documented by: Sodium Chloride () 1,000 mls @ 150 mls/hr IV .Q6H40M [facility] Last Infusion: 12/25/19 08:39 Dose: 150 mls/hr Documented by: Sodium Chloride () 250 mls @ 15 mls/hr IV .[id number] PRN PRN Reason: Saline Flush Levothyroxine Sodium (Synthroid) 125 mcg PO DAILY@0600 [facility] Last Admin: 12/25/19 05:35 Dose: 125 mcg Documented by: Melatonin (Melatonin) 3 mg PO QHS PRN PRN PRN Reason: INSOMNIA Morphine Sulfate () 2 mg IV Q3H PRN PRN PRN Reason: Pain Score 6-10/10 Ondansetron HCl (Zofran) 4 mg IV Q8H PRN PRN PRN Reason: NAUSEA/VOMITING Last Admin: 12/24/19 00:43 Dose: 4 mg Documented by: Oxycodone HCl (Oxyir) 5 mg PO Q6H PRN PRN PRN Reason: Pain Score 4-5/10 Last Admin: 12/25/19 05:35 Dose: 5 mg Documented by: Sodium Chloride () 10 - 40 ml IV UD PRN PRN Reason: SALINE FLUSH Warfarin Sodium (Coumadin (Pbkc)) 5 mg PO SuMoTuWeTh@1700 [facility] Last Admin: 12/24/19 17:47 Dose: 5 mg Documented by: Warfarin Sodium (Coumadin (Pbkc)) 7.5 mg PO FrSa@1700 [facility] Assessment/Plan All Active Problems (Last Reviewed 11/06/19 @ 15:13 by Taylor Green) Hyponatremia (Acute) Constipation (Acute) Nausea and vomiting (Acute) Non-rheumatic tricuspid valve insufficiency (Acute) SOB (shortness of breath) (Resolved) hyponatremia : Pt has chronic hyponatremia since July 2019. this might be SSRI. Na level has been around 130-135 Acute hyponatremia likely prerenal from poor oral intake along with being on aldactone. U Na level was 60 and Urine osmolality > 300 . this was done after 6 hrs NS infusion Na level improved with IV volume expansion .Na level is now at appropriate level. I agree with increasing NS rate to 150 cc/hour Monitor Na level Q 4 hrs. If Na level drops then d/c IVF No need for 3% Thank you for the consult.Renal team will continue to follow Please call if any question at [phone] Jose Apodaca MD
[2019-12-25] MEDS: 0.9% Normal Saline 1,000 ML 150 ML IV (11:43)
[2019-12-25 12:46] LABS: Anion Gap 4 (5-15); BUN 9 mg/dL (7-18); BUN/Creat Ratio 12.1 RATIO (10-20); Calcium,Total 8.7 mg/dL (8.5-10.1); Chloride 93 mmol/L (98-107); Creatinine, Serum 0.74 mg/dL (0.55-1.02); EST Glomerular Filtration Rate 83 mL/min (>60); Est Glom Filt Rate - Afr Amer 100 mL/min (>60); Estimated Creatinine Clearance 50.41 ml/min; Glucose 104 mg/dL (74-106); Potassium 4.2 mmol/L (3.5-5.1); Sodium Level 123 mmol/L (136-145)
[2019-12-25 16:33] LABS: Anion Gap 5 (5-15); BUN 11 mg/dL (7-18); BUN/Creat Ratio 14.6 RATIO (10-20); Calcium,Total 8.3 mg/dL (8.5-10.1); Chloride 95 mmol/L (98-107); Creatinine, Serum 0.76 mg/dL (0.55-1.02); EST Glomerular Filtration Rate 81 mL/min (>60); Est Glom Filt Rate - Afr Amer 98 mL/min (>60); Estimated Creatinine Clearance 50.41 ml/min; Glucose 115 mg/dL (74-106); Sodium Level 126 mmol/L (136-145)
--- NOTE | 2019-12-25 16:52 | DCINST_ITS ---
- Discharge Diagnoses Current Active Problems: Current Active and Chronic Problems (Last Reviewed 11/06/19 @ 15:13 by Taylor Green) Hyponatremia (Acute) Anxiety and depression (Chronic) Valvular heart disease (Chronic) Constipation (Acute) Nausea and vomiting (Acute) You will use the following diet at home:: No restrictions Your food should be the consistency of: Regular Your liquids should be the consistency of: Regular/Thin Discharge Activity: Return to Normal Activity Weight Bearing Status: Full weight bearing Allergies/Adverse Reactions: Allergies lisinopril Adverse Reaction (Intermediate, Verified 12/23/19 17:58) cough Penicillins [PCN] Adverse Reaction (Mild, Verified 12/23/19 22:42) Other redness at injection site, was receiving monthly injections. Medications to take at Discharge Atorvastatin Calcium [Lipitor] 40 mg PO QHS 08/16/17 Fluoxetine [Prozac] 20 mg PO DAILY 08/16/17 Losartan Potassium [Cozaar] 50 mg PO BID 08/16/17 atenolol 50 mg tablet 50 mg PO DAILY tab 04/30/19 levothyroxine 125 mcg tablet 125 mcg PO DAILY 04/30/19 cholecalciferol (vitamin D3) 125 mcg (5,000 unit) tablet 5,000 unit PO DAILY 11/06/19 Calcium Carbonate [Calcium] 600 mg PO DAILY 12/09/19 Mv-Min/FA/Vit K/Lycop/Lut/Zeax [Ocuvite Eye Plus Multi Tablet] 1 tab PO DAILY 12/09/19 Warfarin Sodium [Coumadin] 5 mg PO SUMOTUWETH 12/09/19 Acetaminophen [Tylenol] 500 mg PO Q6H PRN PRN 12/23/19 Ondansetron [Ondansetron Odt] 4 mg PO Q8H PRN PRN 12/23/19 Warfarin [Coumadin] 7.5 mg PO FRSA 12/23/19 Diltiazem CD [Cardizem CD] 240 mg PO BID #1 cap 12/25/19 Hydrocodone Bitart/Apap 5-325 [[place] 5MG-325MG] 1 - 2 tab PO Q6H PRN PRN 7 Days #20 tab 12/25/19 The following prescriptions were given: Diltiazem CD [Cardizem CD] 240 mg PO BID #1 cap Hydrocodone Bitart/Apap 5-325 [[place] 5MG-325MG] 1 - 2 tab PO Q6H PRN PRN 7 Days #20 tab PRN Reason: Pain Transmission Status: Sent to [facility] Primary Care Physician: Sandra Lopez MD [Primary Care Provider] - Please follow up with your Primary Care Physician in: next week- get BMP done Test Results: Test results from this visit will be discussed in further detail at your follow- up appointment, if applicable.
--- NOTE | 2019-12-27 16:06 | DS.PCM_ITS ---
Discharge Date and Diagnosis Date of Admission: 12/23/19 Date of Discharge: 12/25/19 - Primary Discharge Diagnosis #1 hyponatremia #2 essential hypertension #3 anemia-etiology unknown - Secondary Discharge Diagnosis Chronic Problems (Last Reviewed 11/06/19 @ 15:13 by Taylor Green) Anxiety and depression (Chronic) Valvular heart disease (Chronic) Non-rheumatic mitral regurgitation (Chronic) detention current use of anticoagulant (Chronic) Pure hypercholesterolemia (Chronic) Essential hypertension (Chronic) Paroxysmal atrial fibrillation (Chronic) [facility] on 09/09/2018; Depression (Chronic) Proteinuria (Chronic) Hypothyroidism (Chronic) Mitral valve insufficiency (Chronic) Edema (Chronic) Hospital Course and Treatment Operations: None Procedures: None Summary of Care Provided: The patient is a 69 year old F was seen in the emergency room at [facility], she had complaints of intermittent nausea with occasional vomiting over the last several days. Patient was scheduled to undergo knee surgery the day she was seen in the emergency room, on her preop lab that was done yesterday she was noted to be hyponatremic and her surgery was canceled. Patient's last known sodium before that was on December 13 and her sodium was 133. Lab was drawn in the emergency room, it showed the patient to be hyponatremic with a mild anemia. Patient was admitted to PCU, she was placed on IV normal saline and seen in consultation by nephrology, nephrology felt that the patient's vomiting may have had something to do with her hyponatremia as well as her use of Spironolactone which it appears patient had been taking for blood pressure. On 12/25/2019, patient was seen and examined: On examination she appeared in good health and spirits. Vital signs as documented. Skin warm and dry and without overt rashes. Neck without JVD. Lungs clear. Heart exam notable for regular rhythm, normal sounds and absence of murmurs, rubs or gallops. Abdomen unremarkable and without evidence of organomegaly, masses, or abdominal aortic enlargement. Extremities nonedematous. Neuro: Cranial nerves II through XII are grossly intact, no focal motor deficits were noted, sensation to light touch and pinprick is intact. Psych: Patient is alert and oriented x3, she does not appear anxious or depressed Patient appeared stable for discharge on 12/25/2019. [] - Physical Exam Vitals/I&O's: Vital Signs Temp Pulse Resp BP Pulse Ox 98.3 F 58 L 16 149/71 H 96 12/25/19 15:30 12/25/19 15:30 12/25/19 15:30 12/25/19 15:30 12/25/19 15:30 Oxygen Delivery Method Room Air Weight: 69.8 kg Body Mass Index (BMI) 24.8 Intake and Output for Last 24 Hours 12/25/19 12/26/19 12/27/19 23:59 23:59 23:59 Intake Total 2403.75 / 2403.75 Output Total 1300 / 1300 Balance 1103.75 / 1103.75 Discharge Activity: Return to Normal Activity Weight Bearing Status: Full weight bearing Home Medications: Medications to take at Discharge Atorvastatin Calcium [Lipitor] 40 mg PO QHS 08/16/17 Fluoxetine [Prozac] 20 mg PO DAILY 08/16/17 Losartan Potassium [Cozaar] 50 mg PO BID 08/16/17 atenolol 50 mg tablet 50 mg PO DAILY tab 04/30/19 levothyroxine 125 mcg tablet 125 mcg PO DAILY 04/30/19 cholecalciferol (vitamin D3) 125 mcg (5,000 unit) tablet 5,000 unit PO DAILY 11/06/19 Calcium Carbonate [Calcium] 600 mg PO DAILY 12/09/19 Mv-Min/FA/Vit K/Lycop/Lut/Zeax [Ocuvite Eye Plus Multi Tablet] 1 tab PO DAILY 12/09/19 Warfarin Sodium [Coumadin] 5 mg PO SUMOTUWETH 12/09/19 Acetaminophen [Tylenol] 500 mg PO Q6H PRN PRN 12/23/19 Ondansetron [Ondansetron Odt] 4 mg PO Q8H PRN PRN 12/23/19 Warfarin [Coumadin] 7.5 mg PO FRSA 12/23/19 Diltiazem CD [Cardizem CD] 240 mg PO BID #1 cap 12/25/19 Hydrocodone Bitart/Apap 5-325 [[place] 5MG-325MG] 1 - 2 tab PO Q6H PRN PRN 7 Days #20 tab 12/25/19 Following Prescrptions Were Given to Patient: Diltiazem CD [Cardizem CD] 240 mg PO BID #1 cap Hydrocodone Bitart/Apap 5-325 [[place] 5MG-325MG] 1 - 2 tab PO Q6H PRN PRN 7 Days #20 tab PRN Reason: Pain Transmission Status: Received by [facility] Primary Care Physician: Sandra Lopez MD [Primary Care Provider] - Please follow up with your Primary Care Physician in: next week- get BMP done Disposition: Home Minutes spent on discharge:: 32 Patient Condition:: Stable Medical Necessity - Tobacco Use Smoking Status: Never smoker Tobacco Use: Non-smoker Meaningful Use Info Meaningful Use Diagnoses (Choose all that apply): None applicable Inpatient E&M: 18675 Disch Hosp
== END 2019-12-25 18:00 | disposition home or self-care (01) | DRG 641 ==
LOC: ED 20:52 → PCU 22:16
PROVIDERS: Admitting Provider Family Medicine; Emergency Provider Emergency Medicine; PCP Internal Medicine; Visit Provider Internal Medicine
DX: E87.1 Hypo-osmolality and hyponatremia (principal); Z79.01 Long term (current) use of anticoagulants; I48.0 Paroxysmal atrial fibrillation; E03.9 Hypothyroidism, unspecified; D64.9 Anemia, unspecified; F32.9 Major depressive disorder, single episode, unspecified; F41.9 Anxiety disorder, unspecified; I34.0 Nonrheumatic mitral (valve) insufficiency; E78.00 Pure hypercholesterolemia, unspecified; I10 Essential (primary) hypertension
CPT/HCPCS: 36415; 80048; 80076; 81001; 82570; 83036; 83690; 83735; 83930; 83935; 84300; 84443; 84481; 85025; 85610; 99251; 99284; J7030; G0463; J2405

== ENCOUNTER → 2019-12-28 16:25 | Outpatient (CLI) | payer MEDICARE, OTHER, SELFPAY ==
[2019-12-23 22:36] VITALS: BMI 24.8
[2019-12-28 17:31] LABS: Anion Gap 7 (5-15); BUN 13 mg/dL (7-18); BUN/Creat Ratio 13.5 RATIO (10-20); Calcium,Total 8.3 mg/dL (8.5-10.1); Chloride 99 mmol/L (98-107); Creatinine, Serum 0.96 mg/dL (0.55-1.02); EST Glomerular Filtration Rate 61 mL/min (>60); Est Glom Filt Rate - Afr Amer 74 mL/min (>60); Glucose 89 mg/dL (74-106); Potassium 3.9 mmol/L (3.5-5.1); Sodium Level 131 mmol/L (136-145); Thyroid Stim Hormone (TSH) 3.53 uIU/mL (0.358-3.74)
== END ==
PROVIDERS: PCP Internal Medicine; Referring Provider Internal Medicine; Visit Provider Internal Medicine
DX: E03.9 Hypothyroidism, unspecified (principal); E87.6 Hypokalemia
CPT/HCPCS: 36415; 80048; 84443

== ENCOUNTER 2020-01-08 13:43 | Outpatient (RCR) | payer MEDICARE, OTHER, SELFPAY ==
[2019-12-09 13:23] VITALS: BMI 29.2
[2020-01-01 12:38] LABS: International Normalized Ratio 1.7; Prothrombin Time (Protime)PT. 19.4 SECONDS (11.7-14.9)
[2020-01-08 14:52] LABS: International Normalized Ratio 2.1; Prothrombin Time (Protime)PT. 23.5 SECONDS (11.7-14.9)
== END 2020-01-08 18:00 | disposition home or self-care (01) ==
LOC: LAB 13:43
PROVIDERS: Family Provider Internal Medicine; PCP Internal Medicine; Referring Provider Internal Medicine Cardiovascular Disease; Visit Provider Internal Medicine Cardiovascular Disease
DX: I48.0 Paroxysmal atrial fibrillation (principal); Z79.01 Long term (current) use of anticoagulants
CPT/HCPCS: 36415; 85610

== ENCOUNTER 2020-01-22 10:08 | Outpatient (RCR) | payer MEDICARE, OTHER, SELFPAY ==
[2020-01-22 10:47] LABS: International Normalized Ratio 1.3; Prothrombin Time (Protime)PT. 15.8 SECONDS (11.7-14.9)
[2020-02-01 16:58] LABS: Absolute Lymphocyte Count 1.11 X10^3/uL (0.83-4.51); Absolute Neutrophil Count 3.5 X10^3/uL (2.0-7.7); Basophil# 0.03 X10^3/uL; Basophil% 0.5 % (0-1); Eosinophil# 0.29 X10^3/uL; Eosinophils% 5.3 % (0-5); Hematocrit 35.5 % (37-47); Hemoglobin 11.9 g/dL (12.0-15.0); Lymphocyte # 1.11 X10^3/ul (4.0); Lymphocyte % 20.2 % (19-41); Mean Corp Hgb Conc 33.5 g/dL (32-36); Mean Corpuscular Hgb 32.2 pg (27.0-32.0); Mean Corpuscular Volume 95.9 fL (81-99); Mean Platelet Vol. 10.6 fl (6.2-12.0); Monocyte# 0.57 X10^3/uL; Monocyte% 10.4 % (0-10); NRBC Flagged by Analyzer 0 % (0-5); Neutrophil # 3.48 X10^3/uL (2.7-7.7); Neutrophil % 63.2 % (47-70); Platelet Count 228 K/mm3 (150-450); RBC Distribution Width CV 14.4 % (11.6-14.6); RBC Distribution Width SD 50.4 fl (35.1-43.9); White Blood Count 5.5 K/mm3 (4.4-11.0)
[2020-02-01 17:08] LABS: International Normalized Ratio 1.9; Prothrombin Time (Protime)PT. 21.7 SECONDS (11.7-14.9)
[2020-02-01 17:09] LABS: Protein, Urine (Random) 166.1 mg/dL (<11.9); Protein:Creat Ratio 2317 mg/g CRE (0-200)
[2020-02-01 17:24] LABS: Albumin, Serum 3.3 g/dL (3.2-5.0); BUN 17 mg/dL (7-18); BUN/Creat Ratio 16.5 RATIO (10-20); Chloride 101 mmol/L (98-107); Creatinine, Serum 1.03 mg/dL (0.55-1.02); EST Glomerular Filtration Rate 57 mL/min (>60); Est Glom Filt Rate - Afr Amer 69 mL/min (>60); Glucose 103 mg/dL (74-106); Phosphorus 2.9 mg/dL (2.5-4.9); Potassium 4.5 mmol/L (3.5-5.1); Sodium Level 135 mmol/L (136-145)
== END 2020-02-11 18:00 | disposition home or self-care (01) ==
LOC: LAB 10:08
PROVIDERS: Family Provider Internal Medicine; PCP Internal Medicine; Referring Provider Internal Medicine Cardiovascular Disease; Visit Provider Internal Medicine Cardiovascular Disease
DX: I48.0 Paroxysmal atrial fibrillation (principal); Z79.01 Long term (current) use of anticoagulants; E87.6 Hypokalemia; E03.9 Hypothyroidism, unspecified
CPT/HCPCS: 36415; 80069; 82570; 84156; 85025; 85610

== ENCOUNTER 2020-03-12 11:54 | Outpatient (RCR) | payer MEDICARE, OTHER, SELFPAY ==
[2020-02-19 16:05] LABS: International Normalized Ratio 1.9; Prothrombin Time (Protime)PT. 21.2 SECONDS (11.7-14.9)
[2020-02-19 16:26] LABS: Anion Gap 3 (5-15); BUN 20 mg/dL (7-18); Calcium,Total 9.8 mg/dL (8.5-10.1); Chloride 101 mmol/L (98-107); Creatinine, Serum 0.95 mg/dL (0.55-1.02); EST Glomerular Filtration Rate 62 mL/min (>60); Est Glom Filt Rate - Afr Amer 75 mL/min (>60); Glucose 99 mg/dL (74-106); Potassium 4.8 mmol/L (3.5-5.1); Sodium Level 137 mmol/L (136-145); Thyroid Stim Hormone (TSH) 4.19 uIU/mL (0.358-3.74)
[2020-02-27 12:32] LABS: International Normalized Ratio 2.1
[2020-03-12 13:19] LABS: International Normalized Ratio 2.5; Prothrombin Time (Protime)PT. 26.3 SECONDS (11.7-14.9)
[2020-03-12 13:36] LABS: Protein, Urine (Random) 2197.4 mg/dL (<11.9); Protein:Creat Ratio 10564 mg/g CRE (0-200)
== END 2020-03-12 18:00 | disposition home or self-care (01) ==
LOC: LAB 11:54
PROVIDERS: Family Provider Internal Medicine; PCP Internal Medicine; Referring Provider Internal Medicine Cardiovascular Disease; Visit Provider Internal Medicine Cardiovascular Disease
DX: I48.0 Paroxysmal atrial fibrillation (principal); Z79.01 Long term (current) use of anticoagulants; E03.9 Hypothyroidism, unspecified; I10 Essential (primary) hypertension
CPT/HCPCS: 36415; 80048; 82570; 84156; 84443; 85610

== ENCOUNTER 2020-04-01 12:54 | Outpatient (RCR) | payer MEDICARE, OTHER, SELFPAY ==
[2020-04-01 13:35] LABS: Absolute Lymphocyte Count 0.85 X10^3/uL (0.83-4.51); Absolute Neutrophil Count 5.2 X10^3/uL (2.0-7.7); Basophil# 0.02 X10^3/uL; Basophil% 0.3 % (0-1); Eosinophil# 0.33 X10^3/uL; Eosinophils% 4.7 % (0-5); Hematocrit 37.1 % (37-47); Hemoglobin 12.4 g/dL (12.0-15.0); Lymphocyte # 0.85 X10^3/ul (4.0); Lymphocyte % 12.2 % (19-41); Mean Corp Hgb Conc 33.4 g/dL (32-36); Mean Corpuscular Hgb 32.1 pg (27.0-32.0); Mean Corpuscular Volume 96.1 fL (81-99); Mean Platelet Vol. 10.3 fl (6.2-12.0); Monocyte# 0.58 X10^3/uL; Monocyte% 8.3 % (0-10); NRBC Flagged by Analyzer 0 % (0-5); Neutrophil # 5.15 X10^3/uL (2.7-7.7); Neutrophil % 74.1 % (47-70); Platelet Count 238 K/mm3 (150-450); RBC Distribution Width CV 14.4 % (11.6-14.6); Red Blood Count 3.86 M/mm3 (4.2-5.4)
[2020-04-01 13:45] LABS: International Normalized Ratio 2.8; Prothrombin Time (Protime)PT. 28.7 SECONDS (11.7-14.9)
[2020-04-01 14:03] LABS: Anion Gap 7 (5-15); BUN 23 mg/dL (7-18); BUN/Creat Ratio 18.7 RATIO (10-20); Calcium,Total 9.2 mg/dL (8.5-10.1); Chloride 99 mmol/L (98-107); Creatinine, Serum 1.23 mg/dL (0.55-1.02); EST Glomerular Filtration Rate 46 mL/min (>60); Est Glom Filt Rate - Afr Amer 56 mL/min (>60); Glucose 124 mg/dL (74-106); Phosphorus 3.4 mg/dL (2.5-4.9); Potassium 4.6 mmol/L (3.5-5.1); Sodium Level 136 mmol/L (136-145)
[2020-04-01 14:24] LABS: Protein:Creat Ratio 1268 mg/g CRE (0-200)
== END 2020-04-01 18:00 | disposition home or self-care (01) ==
LOC: LAB 12:54
PROVIDERS: Family Provider Internal Medicine; PCP Internal Medicine; Referring Provider Internal Medicine Cardiovascular Disease; Visit Provider Internal Medicine Cardiovascular Disease
DX: I48.0 Paroxysmal atrial fibrillation (principal); Z79.01 Long term (current) use of anticoagulants
CPT/HCPCS: 36415; 80048; 82040; 82570; 84100; 84156; 84443; 85025; 85610

== ENCOUNTER → 2020-04-06 12:53 | Outpatient (CLI) | payer MEDICARE, OTHER, SELFPAY ==
[2020-04-06 14:03] LABS: Hepatitis B Surface Antibody Non-Reactive; Hepatitis B Surface Antigen Non-Reactive (Nonreactive)
== END ==
PROVIDERS: PCP Internal Medicine; Referring Provider Internal Medicine Nephrology; Visit Provider Internal Medicine Nephrology
DX: I12.9 Hypertensive chronic kidney disease with stage 1 through stage 4 chronic kidney disease, or unspecified chronic kidney disease (principal); N18.1 Chronic kidney disease, stage 1; R80.9 Proteinuria, unspecified
CPT/HCPCS: 36415; 86706; 87340

== ENCOUNTER → 2020-04-13 08:03 | Outpatient (CLI) | payer MEDICARE, OTHER, SELFPAY ==
[2020-04-13 08:27] VITALS: BP 122/66; PULSE 68; RESP 16; TEMP 36.4; O2SAT 96; BMI 29.9
[2020-04-13] MEDS: DiphenhydrAMINE 25 MG Capsule 50 MG PO (08:36)
[2020-04-13] MEDS: Acetaminophen 325 MG Tablet 650 MG PO (08:36)
[2020-04-13] MEDS: 0.9% NaCl Peripheral Flush Adult/Peds IV (08:48)
[2020-04-13 14:55] VITALS: BP 146/65; PULSE 77; RESP 14; TEMP 37.6; O2SAT 98
== END ==
PROVIDERS: PCP Internal Medicine; Referring Provider Internal Medicine Nephrology; Visit Provider Internal Medicine Nephrology
DX: N18.6 End stage renal disease (principal); R80.9 Proteinuria, unspecified; N05.2 Unspecified nephritic syndrome with diffuse membranous glomerulonephritis
CPT/HCPCS: 96365; 96366; 96413; 96415; J7040; J9312; A4216

== ENCOUNTER → 2020-04-27 08:13 | Outpatient (CLI) | payer MEDICARE, OTHER, SELFPAY ==
[2020-04-13 08:27] VITALS: BMI 29.9
[2020-04-27] MEDS: DiphenhydrAMINE 25 MG Capsule 50 MG PO (08:21)
[2020-04-27] MEDS: Acetaminophen 325 MG Tablet 650 MG PO (08:22)
[2020-04-27] MEDS: 0.9% NaCl Peripheral Flush Adult/Peds IV (08:23)
[2020-04-27 08:29] VITALS: BP 128/71; PULSE 59; RESP 16; TEMP 36.7; BMI 29.2
[2020-04-27] MEDS: 0.9% NaCl IVPB Med Flush (250 mL) 15 ML IV (09:02)
[2020-04-27 13:01] VITALS: BP 115/56; PULSE 60; RESP 16
== END ==
PROVIDERS: PCP Internal Medicine; Referring Provider Internal Medicine Nephrology; Visit Provider Internal Medicine Nephrology
DX: N18.6 End stage renal disease (principal); R80.9 Proteinuria, unspecified; N05.2 Unspecified nephritic syndrome with diffuse membranous glomerulonephritis; I48.0 Paroxysmal atrial fibrillation; Z79.01 Long term (current) use of anticoagulants
CPT/HCPCS: 36415; 85610; 96413; 96415; J7040; J7050; J9312; A4216

== ENCOUNTER 2020-04-27 14:14 | Outpatient (RCR) | payer MEDICARE, OTHER, SELFPAY ==
[2020-04-27 08:29] VITALS: BMI 29.2
[2020-04-27 14:56] LABS: International Normalized Ratio 2.9; Prothrombin Time (Protime)PT. 30.2 SECONDS (11.7-14.9)
== END 2020-04-27 18:00 | disposition home or self-care (01) ==
LOC: LAB 14:14
PROVIDERS: Family Provider Internal Medicine; PCP Internal Medicine; Referring Provider Internal Medicine Cardiovascular Disease; Visit Provider Internal Medicine Cardiovascular Disease
DX: I48.0 Paroxysmal atrial fibrillation (principal); Z79.01 Long term (current) use of anticoagulants
CPT/HCPCS: 36415; 85610

== ENCOUNTER → 2020-05-16 16:13 | Outpatient (CLI) | payer MEDICARE, OTHER, SELFPAY ==
[2020-04-27 08:29] VITALS: BMI 29.2
[2020-05-16 16:46] LABS: Absolute Lymphocyte Count 0.89 X10^3/uL (0.83-4.51); Basophil# 0.03 X10^3/uL; Basophil% 0.5 % (0-1); Eosinophil# 0.28 X10^3/uL; Eosinophils% 4.7 % (0-5); Hematocrit 35.3 % (37-47); Hemoglobin 11.8 g/dL (12.0-15.0); Lymphocyte # 0.89 X10^3/ul (4.0); Mean Corp Hgb Conc 33.4 g/dL (32-36); Mean Corpuscular Hgb 32.2 pg (27.0-32.0); Mean Corpuscular Volume 96.2 fL (81-99); Mean Platelet Vol. 11.1 fl (6.2-12.0); Monocyte# 0.77 X10^3/uL; NRBC Flagged by Analyzer 0 % (0-5); Neutrophil # 3.95 X10^3/uL (2.7-7.7); Neutrophil % 66.5 % (47-70); Platelet Count 228 K/mm3 (150-450); RBC Distribution Width CV 14.8 % (11.6-14.6); RBC Distribution Width SD 51.2 fl (35.1-43.9); Red Blood Count 3.67 M/mm3 (4.2-5.4); White Blood Count 5.9 K/mm3 (4.4-11.0)
[2020-05-16 17:02] LABS: AST(SGOT) 23 U/L (15-37); Alanine Aminotransfer ALT/SGPT 25 U/L (13-56); Albumin, Serum 3.3 g/dL (3.2-5.0); Alkaline Phosphatase 78 U/L (45-117); Anion Gap 6 (5-15); BUN 32 mg/dL (7-18); BUN/Creat Ratio 24.2 RATIO (10-20); Chloride 110 mmol/L (98-107); Creatinine, Serum 1.32 mg/dL (0.55-1.02); EST Glomerular Filtration Rate 43 mL/min (>60); Est Glom Filt Rate - Afr Amer 51 mL/min (>60); Globulin 3.2 g/dL (2.2-4.2); Glucose 95 mg/dL (74-106); Potassium 4.6 mmol/L (3.5-5.1); Protein, Total 6.5 g/dL (6.4-8.2); Sodium Level 141 mmol/L (136-145)
[2020-05-16 17:35] LABS: Protein, Urine (Random) 171.4 mg/dL (<11.9); Protein:Creat Ratio 974 mg/g CRE (0-200)
== END ==
PROVIDERS: PCP Internal Medicine; Referring Provider Internal Medicine Nephrology; Visit Provider Internal Medicine Nephrology
DX: I12.9 Hypertensive chronic kidney disease with stage 1 through stage 4 chronic kidney disease, or unspecified chronic kidney disease (principal); N18.1 Chronic kidney disease, stage 1; R80.9 Proteinuria, unspecified
CPT/HCPCS: 36415; 80053; 82570; 84156; 85025

== ENCOUNTER 2020-05-18 14:47 | Outpatient (RCR) | payer MEDICARE, OTHER, SELFPAY ==
[2020-05-18 14:34] VITALS: BMI 29.2
[2020-05-18 15:48] LABS: International Normalized Ratio 2.6; Prothrombin Time (Protime)PT. 27.6 SECONDS (11.7-14.9)
== END 2020-06-13 18:00 | disposition home or self-care (01) ==
LOC: LAB 14:47
PROVIDERS: Family Provider Internal Medicine; PCP Internal Medicine; Referring Provider Internal Medicine Cardiovascular Disease; Visit Provider Internal Medicine Cardiovascular Disease
DX: I48.0 Paroxysmal atrial fibrillation (principal); Z79.01 Long term (current) use of anticoagulants
CPT/HCPCS: 36415; 85610

== ENCOUNTER → 2020-06-28 15:52 | Outpatient (CLI) | payer MEDICARE, OTHER, SELFPAY ==
[2020-06-28 17:17] LABS: Protein, Urine (Random) 615.8 mg/dL (<11.9); Protein:Creat Ratio 1547 mg/g CRE (0-200)
== END ==
PROVIDERS: PCP Internal Medicine; Referring Provider Internal Medicine Nephrology; Visit Provider Internal Medicine Nephrology
DX: N18.2 Chronic kidney disease, stage 2 (mild) (principal); I12.9 Hypertensive chronic kidney disease with stage 1 through stage 4 chronic kidney disease, or unspecified chronic kidney disease; R80.9 Proteinuria, unspecified
CPT/HCPCS: 36415; 82570; 84156

== ENCOUNTER 2020-07-06 15:00 | Outpatient (RCR) | payer MEDICARE, OTHER, SELFPAY ==
[2020-06-17 12:20] LABS: International Normalized Ratio 1.8; Prothrombin Time (Protime)PT. 20.1 SECONDS (11.7-14.9)
[2020-06-17 12:36] LABS: Anion Gap 5 (5-15); BUN 22 mg/dL (7-18); BUN/Creat Ratio 19.5 RATIO (10-20); Calcium,Total 9.3 mg/dL (8.5-10.1); Chloride 104 mmol/L (98-107); Creatinine, Serum 1.13 mg/dL (0.55-1.02); EST Glomerular Filtration Rate 51 mL/min (>60); Est Glom Filt Rate - Afr Amer 62 mL/min (>60); Glucose 100 mg/dL (74-106); Potassium 4.3 mmol/L (3.5-5.1); Sodium Level 137 mmol/L (136-145)
[2020-07-06 16:03] LABS: International Normalized Ratio 2.7
== END 2020-07-06 18:00 | disposition home or self-care (01) ==
LOC: LAB 15:00
PROVIDERS: Nurse Practitioner Family; Family Provider Internal Medicine; PCP Internal Medicine; Referring Provider Internal Medicine Cardiovascular Disease; Visit Provider Internal Medicine Cardiovascular Disease
DX: I48.0 Paroxysmal atrial fibrillation (principal); Z79.01 Long term (current) use of anticoagulants; I10 Essential (primary) hypertension; E03.9 Hypothyroidism, unspecified
CPT/HCPCS: 36415; 80048; 84443; 85610

== ENCOUNTER → 2020-07-19 15:43 | Outpatient (CLI) | payer MEDICARE, OTHER, SELFPAY ==
[2020-07-19 16:24] LABS: Absolute Lymphocyte Count 0.95 X10^3/uL (0.83-4.51); Absolute Neutrophil Count 3.7 X10^3/uL (2.0-7.7); Basophil# 0.03 X10^3/uL; Basophil% 0.5 % (0-1); Color, Urine Yellow (Yellow); Eosinophil# 0.37 X10^3/uL; Eosinophils% 6.4 % (0-5); Glucose, Dipstick Normal (Normal); Hematocrit 37.5 % (37-47); Hemoglobin 12.8 g/dL (12.0-15.0); Ketone-Dipstick Negative (Negative); Leukocyte Esterase-Dipstick Negative /ul (Negative); Lymphocyte # 0.95 X10^3/ul (4.0); Lymphocyte % 16.4 % (19-41); Mean Corp Hgb Conc 34.1 g/dL (32-36); Mean Corpuscular Hgb 31.9 pg (27.0-32.0); Mean Corpuscular Volume 93.5 fL (81-99); Mean Platelet Vol. 11.2 fl (6.2-12.0); Monocyte# 0.74 X10^3/uL; Monocyte% 12.7 % (0-10); NRBC Flagged by Analyzer 0 % (0-5); Neutrophil # 3.69 X10^3/uL (2.7-7.7); Neutrophil % 63.5 % (47-70); Nitrite-Dipstick Negative (Negative); Occult Blood-Urine 50 /ul (Negative); Platelet Count 260 K/mm3 (150-450); Protein-Dipstick 500 mg/dl (Negative); RBC Distribution Width CV 14.1 % (11.6-14.6); RBC Distribution Width SD 47.6 fl (35.1-43.9); Red Blood Count 4.01 M/mm3 (4.2-5.4); Specific Gravity, Urine 1.015 (1.002-1.030); Urine Bilirubin Dipstick Negative (Negative); Urine Clarity Clear (Clear); Urine Urobilinogen Normal (Normal); Urine pH 6.5 (5.0 - 8.0); White Blood Count 5.8 K/mm3 (4.4-11.0)
[2020-07-19 16:35] LABS: Protein, Urine (Random) 253.4 mg/dL (<11.9); Protein:Creat Ratio 2112 mg/g CRE (0-200)
[2020-07-19 16:46] LABS: Albumin, Serum 3.3 g/dL (3.2-5.0); BUN 18 mg/dL (7-18); BUN/Creat Ratio 16.8 RATIO (10-20); Calcium,Total 9.1 mg/dL (8.5-10.1); Chloride 101 mmol/L (98-107); Creatinine, Serum 1.07 mg/dL (0.55-1.02); EST Glomerular Filtration Rate 54 mL/min (>60); Est Glom Filt Rate - Afr Amer 66 mL/min (>60); Glucose 96 mg/dL (74-106); Potassium 4.1 mmol/L (3.5-5.1); Sodium Level 133 mmol/L (136-145)
== END ==
PROVIDERS: PCP Internal Medicine; Referring Provider Internal Medicine Nephrology; Visit Provider Internal Medicine Nephrology
DX: N18.2 Chronic kidney disease, stage 2 (mild) (principal); I12.9 Hypertensive chronic kidney disease with stage 1 through stage 4 chronic kidney disease, or unspecified chronic kidney disease; R80.9 Proteinuria, unspecified
CPT/HCPCS: 36415; 80069; 81002; 82570; 84156; 85025

== ENCOUNTER 2020-08-11 13:46 | Outpatient (RCR) | payer MEDICARE, OTHER, SELFPAY ==
[2020-08-11 14:28] LABS: International Normalized Ratio 1.8; Prothrombin Time (Protime)PT. 20.5 SECONDS (11.7-14.9)
== END 2020-08-11 18:00 | disposition home or self-care (01) ==
LOC: LAB 13:46
PROVIDERS: Family Provider Internal Medicine; PCP Internal Medicine; Referring Provider Internal Medicine Cardiovascular Disease; Visit Provider Internal Medicine Cardiovascular Disease
DX: I48.0 Paroxysmal atrial fibrillation (principal); Z79.01 Long term (current) use of anticoagulants
CPT/HCPCS: 36415; 85610

== ENCOUNTER 2020-08-30 11:45 | Outpatient (RCR) | payer MEDICARE, OTHER, SELFPAY ==
[2020-08-30 12:36] LABS: International Normalized Ratio 2.3; Prothrombin Time (Protime)PT. 25.1 SECONDS (11.7-14.9)
[2020-08-30 13:09] LABS: AST(SGOT) 22 U/L (15-37); Alanine Aminotransfer ALT/SGPT 24 U/L (13-56); Albumin, Serum 3.2 g/dL (3.2-5.0); Alkaline Phosphatase 88 U/L (45-117); Anion Gap 6 (5-15); BUN 15 mg/dL (7-18); BUN/Creat Ratio 15.2 RATIO (10-20); Calcium,Total 9.3 mg/dL (8.5-10.1); Chloride 102 mmol/L (98-107); Cholesterol 201 mg/dL (200); Creatinine, Serum 0.99 mg/dL (0.55-1.02); EST Glomerular Filtration Rate 59 mL/min (>60); Est Glom Filt Rate - Afr Amer 72 mL/min (>60); Globulin 3.2 g/dL (2.2-4.2); Glucose 93 mg/dL (74-106); High Density Lipoprotein 83 mg/dL; Potassium 4.3 mmol/L (3.5-5.1); Protein, Total 6.4 g/dL (6.4-8.2); Sodium Level 137 mmol/L (136-145); Thyroid Stim Hormone (TSH) 2.65 uIU/mL (0.358-3.74); Triglycerides 65 mg/dL; Very Low Density Lipoprotein 13 mg/dL (5-40)
== END 2020-08-30 18:00 | disposition home or self-care (01) ==
LOC: LAB 11:45
PROVIDERS: Family Provider Internal Medicine; PCP Internal Medicine; Referring Provider Internal Medicine Cardiovascular Disease; Visit Provider Internal Medicine Cardiovascular Disease
DX: I48.0 Paroxysmal atrial fibrillation (principal); Z79.01 Long term (current) use of anticoagulants; I10 Essential (primary) hypertension; E03.9 Hypothyroidism, unspecified; E78.2 Mixed hyperlipidemia
CPT/HCPCS: 36415; 80053; 80061; 84443; 85610

== ENCOUNTER 2020-10-05 16:34 | Outpatient (RCR) | payer MEDICARE, OTHER, SELFPAY ==
[2020-10-05 17:17] LABS: Protein, Urine (Random) 142.7 mg/dL (<11.9); Protein:Creat Ratio 1027 mg/g CRE (0-200)
[2020-10-05 17:26] LABS: International Normalized Ratio 2.1; Prothrombin Time (Protime)PT. 23.1 SECONDS (11.7-14.9)
[2020-10-05 17:34] LABS: Albumin, Serum 3.1 g/dL (3.2-5.0); BUN 21 mg/dL (7-18); BUN/Creat Ratio 19.6 RATIO (10-20); Calcium,Total 9.1 mg/dL (8.5-10.1); Chloride 99 mmol/L (98-107); Creatinine, Serum 1.07 mg/dL (0.55-1.02); EST Glomerular Filtration Rate 54 mL/min (>60); Est Glom Filt Rate - Afr Amer 65 mL/min (>60); Glucose 88 mg/dL (74-106); Phosphorus 3.1 mg/dL (2.5-4.9); Potassium 4.3 mmol/L (3.5-5.1); Sodium Level 133 mmol/L (136-145)
[2020-10-11 10:20] LABS: Plac Test- Lp-PLA2 161 (0-224)
== END 2020-10-05 18:00 | disposition home or self-care (01) ==
LOC: LAB 16:34
PROVIDERS: Family Provider Internal Medicine; PCP Internal Medicine; Referring Provider Internal Medicine Cardiovascular Disease; Visit Provider Internal Medicine Cardiovascular Disease
DX: I48.0 Paroxysmal atrial fibrillation (principal); Z79.01 Long term (current) use of anticoagulants; I10 Essential (primary) hypertension; E03.9 Hypothyroidism, unspecified; E78.2 Mixed hyperlipidemia
CPT/HCPCS: 36415; 80069; 82570; 83698; 84156; 85610

== ENCOUNTER 2020-11-23 12:51 | Outpatient (RCR) | payer MEDICARE, OTHER, SELFPAY ==
[2020-11-23 14:05] LABS: International Normalized Ratio 2.6; Prothrombin Time (Protime)PT. 27.5 SECONDS (11.7-14.9)
[2020-11-24 08:29] LABS: Anion Gap 3 (5-15); BUN 22 mg/dL (7-18); BUN/Creat Ratio 24.1 RATIO (10-20); Calcium,Total 9.2 mg/dL (8.5-10.1); Chloride 101 mmol/L (98-107); Creatinine, Serum 0.91 mg/dL (0.55-1.02); EST Glomerular Filtration Rate 65 mL/min (>60); Est Glom Filt Rate - Afr Amer 78 mL/min (>60); Glucose 84 mg/dL (74-106); Potassium 4.4 mmol/L (3.5-5.1); Sodium Level 134 mmol/L (136-145)
== END 2020-11-23 18:00 | disposition home or self-care (01) ==
LOC: LAB 12:51
PROVIDERS: Family Provider Internal Medicine; PCP Internal Medicine; Referring Provider Internal Medicine Cardiovascular Disease; Visit Provider Internal Medicine Cardiovascular Disease
DX: I48.0 Paroxysmal atrial fibrillation (principal); Z79.01 Long term (current) use of anticoagulants; E03.9 Hypothyroidism, unspecified; E87.1 Hypo-osmolality and hyponatremia
CPT/HCPCS: 36415; 80048; 84443; 85610

== ENCOUNTER 2020-12-23 09:46 | Outpatient (RCR) | payer MEDICARE, OTHER, SELFPAY ==
[2020-12-23 10:54] LABS: International Normalized Ratio 2.2; Prothrombin Time (Protime)PT. 23.7 SECONDS (11.7-14.9)
[2020-12-23 11:17] LABS: Anion Gap 4 (5-15); BUN 20 mg/dL (7-18); BUN/Creat Ratio 16.9 RATIO (10-20); Calcium,Total 9.6 mg/dL (8.5-10.1); Chloride 101 mmol/L (98-107); Creatinine, Serum 1.18 mg/dL (0.55-1.02); EST Glomerular Filtration Rate 48 mL/min (>60); Est Glom Filt Rate - Afr Amer 58 mL/min (>60); Glucose 93 mg/dL (74-106); Potassium 4.3 mmol/L (3.5-5.1); Sodium Level 136 mmol/L (136-145); Thyroid Stim Hormone (TSH) 2.85 uIU/mL (0.358-3.74)
== END 2020-12-23 18:00 | disposition home or self-care (01) ==
LOC: LAB 09:46
PROVIDERS: Family Provider Internal Medicine; PCP Internal Medicine; Referring Provider Internal Medicine Cardiovascular Disease; Visit Provider Internal Medicine Cardiovascular Disease
DX: Z79.01 Long term (current) use of anticoagulants (principal); I48.0 Paroxysmal atrial fibrillation; I10 Essential (primary) hypertension; E03.9 Hypothyroidism, unspecified; E78.2 Mixed hyperlipidemia
CPT/HCPCS: 36415; 80048; 84443; 85610

== ENCOUNTER 2021-01-12 11:40 | Outpatient (RCR) | payer MEDICARE, OTHER, SELFPAY ==
[2021-01-12 12:45] LABS: Absolute Lymphocyte Count 0.88 X10^3/uL (0.83-4.51); Absolute Neutrophil Count 3.6 X10^3/uL (2.0-7.7); Basophil# 0.04 X10^3/uL; Basophil% 0.7 % (0-1); Eosinophil# 0.32 X10^3/uL; Eosinophils% 5.7 % (0-5); Hematocrit 38.5 % (37-47); Hemoglobin 12.9 g/dL (12.0-15.0); Lymphocyte # 0.88 X10^3/ul (4.0); Lymphocyte % 15.7 % (19-41); Mean Corp Hgb Conc 33.5 g/dL (32-36); Mean Corpuscular Hgb 32.3 pg (27.0-32.0); Mean Corpuscular Volume 96.5 fL (81-99); Mean Platelet Vol. 11.3 fl (6.2-12.0); Monocyte# 0.78 X10^3/uL; Monocyte% 13.9 % (0-10); NRBC Flagged by Analyzer 0 % (0-5); Neutrophil # 3.57 X10^3/uL (2.7-7.7); Neutrophil % 63.6 % (47-70); Platelet Count 257 K/mm3 (150-450); RBC Distribution Width CV 14.6 % (11.6-14.6); RBC Distribution Width SD 52.1 fl (35.1-43.9); Red Blood Count 3.99 M/mm3 (4.2-5.4); White Blood Count 5.6 K/mm3 (4.4-11.0)
[2021-01-12 12:56] LABS: International Normalized Ratio 2.2; Prothrombin Time (Protime)PT. 23.6 SECONDS (11.7-14.9)
[2021-01-12 13:17] LABS: Albumin, Serum 3.3 g/dL (3.2-5.0); BUN 17 mg/dL (7-18); BUN/Creat Ratio 18.2 RATIO (10-20); Calcium,Total 9.1 mg/dL (8.5-10.1); Chloride 103 mmol/L (98-107); Creatinine, Serum 0.93 mg/dL (0.55-1.02); EST Glomerular Filtration Rate 63 mL/min (>60); Est Glom Filt Rate - Afr Amer 77 mL/min (>60); Glucose 89 mg/dL (74-106); Potassium 4.3 mmol/L (3.5-5.1); Sodium Level 135 mmol/L (136-145)
== END 2021-01-12 18:00 | disposition home or self-care (01) ==
LOC: LAB 11:40
PROVIDERS: Internal Medicine Nephrology; Family Provider Internal Medicine; PCP Internal Medicine; Referring Provider Internal Medicine Cardiovascular Disease; Visit Provider Internal Medicine Cardiovascular Disease
DX: I48.0 Paroxysmal atrial fibrillation (principal); I12.9 Hypertensive chronic kidney disease with stage 1 through stage 4 chronic kidney disease, or unspecified chronic kidney disease; N18.1 Chronic kidney disease, stage 1; E03.9 Hypothyroidism, unspecified; E78.2 Mixed hyperlipidemia; R80.9 Proteinuria, unspecified; Z79.01 Long term (current) use of anticoagulants
CPT/HCPCS: 36415; 80069; 82570; 84156; 85025; 85610

== ENCOUNTER → 2021-01-23 12:55 | Outpatient (CLI) | payer MEDICARE, OTHER, SELFPAY ==
[2021-01-13 14:45] VITALS: BMI 28.3
--- NOTE | 2021-01-23 12:59 | CT_ITS ---
CT of the left lower extremity without contrast INDICATION: Knee pain, varus deformity, preop knee arthroplasty TECHNIQUE: Multiple thin section axial CT images the left lower extremity were obtained through the hip, knee, and ankle joints without the administration of intravenous contrast and filmed in bone windows. Furthermore, multiple sagittal and coronal reconstructions were performed. Dose limiting techniques were utilized. Next comparison: 12/09/2019 FINDINGS: No abnormal soft tissue mass, lymphadenopathy, fluid collection. No acute fracture or dislocation. No lytic or blastic lesions. Hip joint: Mild arthrosis with mild joint space narrowing and osteophyte formation and subchondral cyst formation of the roof of acetabulum. Knee joint: Severe arthrosis with florid osteophyte formation, multiple calcified bodies, and a large joint effusion. Ankle joint: Normal. IMPRESSION: Severe knee arthrosis. Electronically Signed: Kunal Fuchs MD at 10:16 EDT Tel , Service support , CT/Extremity Lower without Contra
== END ==
PROVIDERS: PCP Internal Medicine; Referring Provider Specialist; Visit Provider Specialist
DX: M17.12 Unilateral primary osteoarthritis, left knee (principal); M21.162 Varus deformity, not elsewhere classified, left knee
CPT/HCPCS: 73700

== ENCOUNTER → 2021-01-31 15:02 | Outpatient (CLI) | payer MEDICARE, OTHER, SELFPAY ==
--- NOTE | 2021-01-24 14:07 | HP.PCM_ITS ---
History and Physical History and Physical [facility] Patient Name: Susanne Barnes : 1950 From: BRAYDEN LOCKE PA-C DATE OF SURGERY: 02/08/2021 SCHEDULED PROCEDURE: Left total knee arthroplasty HISTORY OF PRESENT ILLNESS: Preoperative history and physical exam was performed on January 23, 2021. This is a 70-year-old female who is had ongoing pain for over 9 years. She was initially scheduled to undergo a left total knee arthroplasty on December 23, 2019 but this was canceled due to thyroid and sodium complications. Due to the viral Pandemic she never scheduled her surgery again. She has continued to have pain which has been progressively been getting worse over the past 6-8 months. Her pain has been dull and aching. She has increased pain sitting, standing. She does get clicking sensation with weightbearing activities. She has difficulty with activities of daily living including bathing/showering, getting dressed, housework, shopping, leisure activities such as horseback riding. She has tripped/stumbled secondary to her knee pain. She feels unsafe getting up on the ladders. She has attempted oral medications including Tylenol with minimal relief. Patient has tried bracing and Jalil wraps without relief. Over the past 3 months she has utilized a cane. Patient does have medical history pertinent for atrial fibrillation, hypertension, hyperlipidemia, thyroid disease. She is currently on Coumadin. We are obtaining surgical clearance from the ror engineer Dr. Hinojosa. We have also obtain clearance from the primary care physician Dr. Lopez. We have been given permission to stop the Coumadin 4-5 days prior to surgery. Patient currently denies any chest pain, shortness of breath, fevers chills, or recent infections. After failing conservative measures and discussing treatment options with Dr. Baldomero Hanks, the patient does wish to proceed with a left total knee arthroplasty. REVIEW OF SYSTEMS: ROS: Const: Denies anorexia, change in appetite, fever, difficulty sleeping, weight change. CV: Reports heart murmur, but denies chest pain, irregular heartbeat and peripheral vascular disease. Resp: Denies asthma, cough, pneumonia, sleep apnea, shortness of breath, tuberculosis and wheezing. GI: Denies constipation, diarrhea, heartburn, nausea, rectal itching, bloody stools and vomiting. : MORE THAN 3 MO. WITHOUT PERIOD Reports incontinence. Musculo: Reports trouble walking, but denies leg swelling, pain and weakness. Skin: Denies Raynaud's, history of shingles and tattoo. Neuro: Reports ambulatory dysfunction and numbness/tingling but denies dizziness and tremor. Psych: Denies anxiety, depression, insomnia, mental illness and stress. Johnny/Lymph: Reports bleeding/bruising tendency, but denies anemia and past transfusion. Reviewed and updated. PAST MEDICAL HISTORY: Advance Care Plan: Other Directive, LIVING WILL Effective Date: 02/16/2019 Other Directive, POA Effective Date: 02/16/2019 PMH: Medical Problems: Arthritis, High Blood Pressure, Thyroid Disease, Hypercholesterolemia Kidney's - LOOSING PROTEIN Depression Accidents: None Surgical Hx: Tubal Ligation - (1979) [facility] RT THR - (10/16/2011) [email or web address]@[email or web address] Carpal Tunnel Release LT - (08/29/2017) [email or web address]/NCS - (02/24/2019) [facility] Anesthesia Complications: None Assistive Devices: Glasses, Brace - BILAT HAND BRACE AT NIGHT Reviewed, no changes. SOCIAL HISTORY: SH: Marital: .Occupation: Retired.Work Status: Retired.Hand Dominance: Right-handed. Personal Habits: Cigarette Use: Never Smoked Cigarettes.Alcohol: Denies use.Drug Use: Denies Use.Enjoy Exercising: Never Exercises. Reviewed, no changes. VITALS: Ht: 61 Wt: 150lb 8oz Wt k.267 BMI: 28.4 BP: 150/82 Pulse: 72 Resp: 16 T: 97 T: 36.1C Pain Level: 2 ALLERGIES: Penicillin - Hip Started Getting Red,Hard, And Swollen Lisinopril - Cough MEDICATIONS: Atenolol 50 mg 1 po qd, Fluoxetine 20 mg 1 PO q day, Bupropion HCL ER (SR) 150 mg 1 by mouth every day, Atorvastatin Calcium 40 mg 1 by mouth every day, Losartan Potassium 50 mg 2 X A day, Vitamin D 2000 Unit 1 by mouth every day, Calcium 600 600 mg 1po qday, Synthroid 125 mcg 1po qday, Diltiazem CD 240 mg 1po qday, Tylenol Extra Strength 500 mg 2 by mouth every 8 hours, Ocuvite Eye Health Formula 2po qday, Vitamin D2 12676 1 weekly, Warfarin Sodium 2.5 mg 1 PO qd PRE-OP EXAM: General appearance:NORMAL Other: Eyes: Conjunctivae and lids: NORMAL Pupils: ERR Ears, Nose, Mouth, and Throat: NORMAL Other: Inspection of lips, teeth and gums: NORMAL Other: Neck: Examination of neck: no masses noted. Respiratory: Assessment of respiratory effort: NORMAL Other: Auscultation of lungs: clear to auscultation no wheezes, rhonchi or rales. Cardiovascular: Auscultation of heart: regular rate and rhythm, no murmurs, gallops or rubs. Exam of carotid arteries: NORMAL Other: Gastrointestinal: Exam of abdomen: soft, nontender, nondistended bowel sounds present. PHYSICAL EXAMINATION: On exam of the left knee patient does walk with an antalgic gait. Currently using cane for ambulatory assistance. She has fixed varus alignment. Tenderness to palpation along the medial joint line. Patient has an 8 varus deformity. Moderate effusion. Range of motion: He lacks 10 of full extension to 100 flexion. IMAGING STUDIES: X-rays of the left knee reveal varus alignment with medial joint space narrowing, subchondral sclerosis, bony erosions and osteophyte formation consistent with severe stage IV osteoarthritis. Patient also has stage IV right knee osteoarthritis with bony erosion of the medial tibial plateau IMPRESSION: 1. Severe left knee osteoarthritis 2. Severe right knee osteoarthritis 3. History of atrial fibrillation with previous cardioversion: Currently on warfarin 4. Mitral valve disease 5. Hypertension 6. Hyperlipidemia 7. Thyroid disorder 8. Depression PLAN: Dr. Baldomero Hanks did discuss and review with the patient all treatment options including surgical versus nonsurgical options. Patient does wish to proceed with the above-stated procedure. Potential risks, benefits, and complications of the procedure were discussed in detail including but not limited to , infection, nerve and blood vessel damage, persistent pain, numbness, tingling, paresthesias, blood clot, pulmonary embolism, and requirement for possible further surgery. The patient expressed full understanding and has no further questions for the doctor. Patient does agree to proceed with the above-stated procedure and has signed the surgery consent form. We discussed the current risks associated with COVID 19. This does include the risk of exposure while in the hospital. Patient was reassured local hospitals have low infection rates and are taking all necessary precautions to avoid exposure to patients. In addition, we discussed strategies that can be used to help limit exposure including those that limit the patient's time in the hospital. Also using strategies to limit the patient's need for continued inpatient services after being discharged from the hospital. Patient was notified that we will need to comply with any screening or testing the hospital wishes to perform or that surgery may be delayed for any positive results. This dictation was created using voice recognition software. Phonetic and/or grammatical errors may exist. ___ I have re-examined the patient. There are no clinical changes since date of exam. ___ See progress notes for changes. ___ Dictated on admission Date: Time: Signature:
[2021-01-31 11:52] LABS: Protein, Urine (Random) 114.4 mg/dL (<11.9); Protein:Creat Ratio 1157 mg/g CRE (0-200)
[2021-01-31 12:19] LABS: Magnesium 1.7 mg/dL (1.6-2.6)
[2021-02-02 11:23] LABS: Albumin, Serum 3.3 g/dL (3.2-5.0)
== END ==
PROVIDERS: Anesthesiology; PCP Internal Medicine; Referring Provider Specialist; Visit Provider Specialist
DX: Z01.818 Encounter for other preprocedural examination (principal); M17.0 Bilateral primary osteoarthritis of knee; I48.91 Unspecified atrial fibrillation; I10 Essential (primary) hypertension; E78.5 Hyperlipidemia, unspecified; F32.9 Major depressive disorder, single episode, unspecified; E07.9 Disorder of thyroid, unspecified; E78.00 Pure hypercholesterolemia, unspecified; Z79.01 Long term (current) use of anticoagulants; Z79.899 Other long term (current) drug therapy; Z88.0 Allergy status to penicillin; Z88.8 Allergy status to other drugs, medicaments and biological substances
CPT/HCPCS: 36415; 82040; 82570; 83735; 84156; 87081

== ENCOUNTER 2021-03-03 12:51 | Outpatient (RCR) | payer MEDICARE, OTHER, SELFPAY ==
[2021-01-13 14:45] VITALS: BMI 28.3
[2021-03-03 13:11] LABS: Absolute Lymphocyte Count 1.12 X10^3/uL (0.83-4.51); Absolute Neutrophil Count 3.5 X10^3/uL (2.0-7.7); Basophil# 0.03 X10^3/uL; Basophil% 0.5 % (0-1); Eosinophil# 0.35 X10^3/uL; Hematocrit 39.1 % (37-47); Hemoglobin 12.9 g/dL (12.0-15.0); Lymphocyte # 1.12 X10^3/ul (0.83-4.51); Lymphocyte % 19.1 % (19-41); Mean Corpuscular Hgb 31.8 pg (27.0-32.0); Mean Corpuscular Volume 96.3 fL (81-99); Mean Platelet Vol. 10.7 fl (6.2-12.0); Monocyte# 0.82 X10^3/uL; NRBC Flagged by Analyzer 0 % (0-5); Neutrophil # 3.52 X10^3/uL (2.7-7.7); Neutrophil % 60.1 % (47-70); Platelet Count 229 K/mm3 (150-450); RBC Distribution Width CV 14.6 % (11.6-14.6); RBC Distribution Width SD 51.5 fl (35.1-43.9); Red Blood Count 4.06 M/mm3 (4.2-5.4); White Blood Count 5.9 K/mm3 (4.4-11.0)
[2021-03-03 13:18] LABS: International Normalized Ratio 1.5; Prothrombin Time (Protime)PT. 17.8 SECONDS (11.7-14.9)
[2021-03-03 13:29] LABS: Albumin, Serum 3.4 g/dL (3.2-5.0)
== END 2021-03-03 18:00 | disposition home or self-care (01) ==
LOC: LAB 12:51
PROVIDERS: Family Provider Internal Medicine; PCP Internal Medicine; Referring Provider Internal Medicine Cardiovascular Disease; Visit Provider Internal Medicine Cardiovascular Disease
DX: Z01.812 Encounter for preprocedural laboratory examination (principal); I48.0 Paroxysmal atrial fibrillation; Z79.01 Long term (current) use of anticoagulants
CPT/HCPCS: 36415; 82040; 85025; 85610

== ENCOUNTER 2021-04-12 16:27 | Outpatient (RCR) | payer MEDICARE, OTHER, SELFPAY ==
[2021-01-13 14:45] VITALS: BMI 28.3
[2021-04-12 17:08] LABS: Absolute Lymphocyte Count 0.82 X10^3/uL (0.83-4.51); Basophil# 0.03 X10^3/uL; Basophil% 0.5 % (0-1); Eosinophil# 0.28 X10^3/uL; Eosinophils% 4.9 % (0-5); Hematocrit 37.9 % (37-47); Hemoglobin 12.5 g/dL (12.0-15.0); Lymphocyte # 0.82 X10^3/ul (0.83-4.51); Lymphocyte % 14.4 % (19-41); Mean Corpuscular Hgb 31.6 pg (27.0-32.0); Mean Corpuscular Volume 95.9 fL (81-99); Mean Platelet Vol. 10.5 fl (6.2-12.0); Monocyte# 0.57 X10^3/uL; NRBC Flagged by Analyzer 0 % (0-5); Neutrophil # 3.98 X10^3/uL (2.7-7.7); Neutrophil % 69.8 % (47-70); Platelet Count 242 K/mm3 (150-450); RBC Distribution Width CV 14.6 % (11.6-14.6); RBC Distribution Width SD 50.5 fl (35.1-43.9); Red Blood Count 3.95 M/mm3 (4.2-5.4); White Blood Count 5.7 K/mm3 (4.4-11.0)
[2021-04-12 17:22] LABS: International Normalized Ratio 2.6; Prothrombin Time (Protime)PT. 26.6 SECONDS (11.7-14.9)
[2021-04-12 17:44] LABS: AST(SGOT) 23 U/L (15-37); Alanine Aminotransfer ALT/SGPT 35 U/L (13-56); Albumin, Serum 3.4 g/dL (3.2-5.0); Alkaline Phosphatase 70 U/L (45-117); Bilirubin, Direct 0.14 mg/dL (0.00-0.30); Cholesterol 169 mg/dL (200); Globulin 3.2 g/dL (2.2-4.2); High Density Lipoprotein 73 mg/dL; Protein, Total 6.6 g/dL (6.4-8.2); Triglycerides 67 mg/dL; Very Low Density Lipoprotein 13 mg/dL (5-40)
== END 2021-04-12 18:00 | disposition home or self-care (01) ==
LOC: LAB 16:27
PROVIDERS: Family Provider Internal Medicine; PCP Internal Medicine; Referring Provider Internal Medicine Cardiovascular Disease; Visit Provider Internal Medicine Cardiovascular Disease
DX: Z01.812 Encounter for preprocedural laboratory examination (principal); I48.0 Paroxysmal atrial fibrillation; Z79.01 Long term (current) use of anticoagulants; E78.00 Pure hypercholesterolemia, unspecified
CPT/HCPCS: 36415; 80061; 80076; 85025; 85610

== ENCOUNTER 2021-05-18 15:23 | Outpatient (RCR) | payer MEDICARE, OTHER, SELFPAY ==
[2021-01-13 14:45] VITALS: BMI 28.3
[2021-05-18 16:18] LABS: Absolute Lymphocyte Count 0.77 X10^3/uL (0.83-4.51); Absolute Neutrophil Count 3.6 X10^3/uL (2.0-7.7); Basophil# 0.02 X10^3/uL; Basophil% 0.4 % (0-1); Eosinophil# 0.23 X10^3/uL; Eosinophils% 4.4 % (0-5); Hematocrit 36.1 % (37-47); Lymphocyte # 0.77 X10^3/ul (0.83-4.51); Lymphocyte % 14.6 % (19-41); Mean Corp Hgb Conc 33.2 g/dL (32-36); Mean Corpuscular Hgb 32.3 pg (27.0-32.0); Mean Platelet Vol. 11.1 fl (6.2-12.0); Monocyte% 11.4 % (0-10); NRBC Flagged by Analyzer 0 % (0-5); Neutrophil # 3.62 X10^3/uL (2.7-7.7); Neutrophil % 68.8 % (47-70); Platelet Count 216 K/mm3 (150-450); RBC Distribution Width CV 14.8 % (11.6-14.6); RBC Distribution Width SD 52.4 fl (35.1-43.9); Red Blood Count 3.72 M/mm3 (4.2-5.4); White Blood Count 5.3 K/mm3 (4.4-11.0)
[2021-05-18 16:22] LABS: International Normalized Ratio 1.4; Prothrombin Time (Protime)PT. 16.5 SECONDS (11.7-14.9)
[2021-05-18 16:23] LABS: Protein, Urine (Random) 16.9 mg/dL (<11.9); Protein:Creat Ratio 114 mg/g CRE (0-200)
[2021-05-18 16:40] LABS: Albumin, Serum 3.4 g/dL (3.2-5.0); BUN 37 mg/dL (7-18); BUN/Creat Ratio 31.9 RATIO (10-20); Calcium,Total 9.7 mg/dL (8.5-10.1); Chloride 105 mmol/L (98-107); Creatinine, Serum 1.16 mg/dL (0.55-1.02); EST Glomerular Filtration Rate 49 mL/min (>60); Est Glom Filt Rate - Afr Amer 60 mL/min (>60); Glucose 96 mg/dL (74-106); Phosphorus 3.7 mg/dL (2.5-4.9); Potassium 4.5 mmol/L (3.5-5.1); Sodium Level 140 mmol/L (136-145)
== END 2021-05-18 18:00 | disposition home or self-care (01) ==
LOC: LAB 15:23
PROVIDERS: Family Provider Internal Medicine; PCP Internal Medicine; Referring Provider Internal Medicine Cardiovascular Disease; Visit Provider Internal Medicine Cardiovascular Disease
DX: I48.0 Paroxysmal atrial fibrillation (principal); I12.9 Hypertensive chronic kidney disease with stage 1 through stage 4 chronic kidney disease, or unspecified chronic kidney disease; N18.1 Chronic kidney disease, stage 1; R80.9 Proteinuria, unspecified; Z79.01 Long term (current) use of anticoagulants
CPT/HCPCS: 36415; 80069; 82570; 84156; 85025; 85610

== ENCOUNTER 2021-06-14 10:05 | Observation (INO) | payer MEDICARE, OTHER, SELFPAY ==
[2021-01-13 14:45] VITALS: BMI 28.3
--- NOTE | 2021-05-27 08:47 | PCM.HP.BLA ---
History and Physical History and Physical [facility] Patient Name: Susanne Barnes : 1950 From: BRAYDEN LOCKE PA-C DATE OF SURGERY: 06/14/2021 SCHEDULED PROCEDURE: left total knee arthroplasty HISTORY OF PRESENT ILLNESS: Preoperative history and physical exam was performed on May 26, 2021. This is a 70-year-old female who has had ongoing pain for over 9 years with her left knee. It is been progressively been getting worse over the past couple years. Patient has had 2 previous cancellations of her left total knee replacement. The first one was secondary to thyroid and sodium complications. Second one was secondary to low nutrition markers. Patient states her pain has been getting worse over the past 10 months. She has increased pain going up and down stairs and walking. She gets clicking sensation with weightbearing activities. She has difficulty with activities of daily living including getting dressed, bathing/showering, housework, shopping, leisure activity such as horseback riding secondary to the pain. She has attempted oral medications including Tylenol with minimal relief. She has underlying kidney disease and cannot take anti-inflammatories. She also has history of age of fibrillation in which she is currently on Coumadin. We have obtain surgical clearance from the primary care physician, mail carriers supervisor, and kidney specialist. Per Cardiology okay to stop the Coumadin 3-5 days prior to surgery. She denies any recent chest pain, shortness of breath, fevers chills or recent infections. After failing conservative measures and discussing treatment options the patient does wish to proceed with a left total knee arthroplasty. REVIEW OF SYSTEMS: ROS: Const: Denies anorexia, change in appetite, fever, difficulty sleeping, weight change. CV: Reports heart murmur, but denies chest pain, irregular heartbeat and peripheral vascular disease. Resp: Denies asthma, cough, pneumonia, sleep apnea, shortness of breath, tuberculosis and wheezing. GI: Denies constipation, diarrhea, heartburn, nausea, rectal itching, bloody stools and vomiting. : MORE THAN 3 MO. WITHOUT PERIOD Reports incontinence. Musculo: Reports trouble walking, but denies leg swelling, pain and weakness. Skin: Denies Raynaud's, history of shingles and tattoo. Neuro: Reports ambulatory dysfunction and numbness/tingling but denies dizziness and tremor. Psych: Denies anxiety, depression, insomnia, mental illness and stress. Johnny/Lymph: Reports bleeding/bruising tendency, but denies anemia and past transfusion. Reviewed, no changes. PAST MEDICAL HISTORY: Advance Care Plan: Other Directive, LIVING WILL Effective Date: 02/16/2019 Other Directive, POA Effective Date: 02/16/2019 PMH: Medical Problems: Arthritis, High Blood Pressure, Thyroid Disease, Hypercholesterolemia Kidney's - LOOSING PROTEIN Depression Accidents: None Surgical Hx: Tubal Ligation - (1979) [facility] D And C RT THR - (10/16/2011) [email or web address] Carpal Tunnel Release LT - (08/29/2017) [email or web address] EMG/NCS - (02/24/2019) [facility] Anesthesia Complications: None Assistive Devices: Glasses, Brace - BILAT HAND BRACE AT NIGHT Reviewed, no changes. SOCIAL HISTORY: SH: Marital: .Occupation: Retired.Work Status: Retired.Hand Dominance: Right-handed. Personal Habits: Cigarette Use: Never Smoked Cigarettes.Alcohol: Denies use.Drug Use: Denies Use.Enjoy Exercising: Never Exercises. Reviewed, no changes. VITALS: Ht: 58.5 Wt: 148lb Wt k.133 BMI: 30.4 BP: 134/68 Pulse: 59 Resp: 20 T: 97 T: 36.1C Pain Level: 3 ALLERGIES: Penicillin - Hip Started Getting Red,Hard, And Swollen Lisinopril - Cough MEDICATIONS: Atenolol 50 mg 1 po qd, Fluoxetine 20 mg 1 PO q day, Atorvastatin Calcium 40 mg 1 by mouth every day, Losartan Potassium 50 mg 2 X A day, Vitamin D 2000 Unit 1 by mouth every day, Calcium 600 600 mg 1po qday, Synthroid 125 mcg 1po qday, Diltiazem CD 240 mg 1po qday, Tylenol Extra Strength 500 mg 2 by mouth every 8 hours, Warfarin Sodium 2.5 mg 1 PO qd, Bupropion HCL 75 mg 1 by mouth twice a day PRE-OP EXAM: General appearance:NORMAL Other: Eyes: Conjunctivae and lids: NORMAL Pupils: ERR Ears, Nose, Mouth, and Throat: NORMAL Other: Inspection of lips, teeth and gums: NORMAL Other: Neck: Examination of neck: no masses noted. Respiratory: Assessment of respiratory effort: NORMAL Other: Auscultation of lungs: clear to auscultation no wheezes, rhonchi or rales. Cardiovascular: Auscultation of heart: regular rate and rhythm, no murmurs, gallops or rubs. Exam of carotid arteries: NORMAL Other: Gastrointestinal: Exam of abdomen: soft, nontender, nondistended bowel sounds present. PHYSICAL EXAMINATION: On exam of the left knee patient does walk with an antalgic gait. Currently using cane for ambulatory assistance. She has fixed varus alignment. Tenderness to palpation along the medial joint line. Patient has an 8 varus deformity. Moderate effusion. Range of motion: He lacks 10 of full extension to 100 flexion. IMAGING STUDIES: X-rays of the left knee reveal varus alignment with medial joint space narrowing, subchondral sclerosis, bony erosions and osteophyte formation consistent with severe stage IV osteoarthritis. Patient also has stage IV right knee osteoarthritis with bony erosion of the medial tibial plateau IMPRESSION: 1. Severe left knee osteoarthritis 2. Severe right knee osteoarthritis 3. History of atrial fibrillation with previous cardioversion: Currently on warfarin 4. Mitral valve disease 5. Hypertension 6. Hyperlipidemia 7. Thyroid disorder 8. Depression 9. Idiopathic membranous nephropathy PLAN: Dr. Baldomero Hanks did discuss and review with the patient all treatment options including surgical versus nonsurgical options. Patient does wish to proceed with the above-stated procedure. Potential risks, benefits, and complications of the procedure were discussed in detail including but not limited to , infection, nerve and blood vessel damage, persistent pain, numbness, tingling, paresthesias, blood clot, pulmonary embolism, and requirement for possible further surgery. The patient expressed full understanding and has no further questions for the doctor. Patient does agree to proceed with the above-stated procedure and has signed the surgery consent form. We discussed the current risks associated with COVID 19. This does include the risk of exposure while in the hospital. Patient was reassured local hospitals have low infection rates and are taking all necessary precautions to avoid exposure to patients. In addition, we discussed strategies that can be used to help limit exposure including those that limit the patient's time in the hospital. Also using strategies to limit the patient's need for continued inpatient services after being discharged from the hospital. Patient was notified that we will need to comply with any screening or testing the hospital wishes to perform or that surgery may be delayed for any positive results. This dictation was created using voice recognition software. Phonetic and/or grammatical errors may exist. ___ I have re-examined the patient. There are no clinical changes since date of exam. ___ See progress notes for changes. ___ Dictated on admission Date: Time: Signature:
[2021-06-05 12:44] LABS: International Normalized Ratio 1.9; Prothrombin Time (Protime)PT. 20.8 SECONDS (11.7-14.9)
[2021-06-05 12:54] LABS: Absolute Lymphocyte Count 0.75 X10^3/uL (0.83-4.51); Absolute Neutrophil Count 3.4 X10^3/uL (2.0-7.7); Basophil# 0.02 X10^3/uL; Basophil% 0.4 % (0-1); Eosinophil# 0.24 X10^3/uL; Eosinophils% 4.8 % (0-5); Hematocrit 35.4 % (37-47); Hemoglobin 11.7 g/dL (12.0-15.0); Lymphocyte # 0.75 X10^3/ul (0.83-4.51); Lymphocyte % 15.1 % (19-41); Mean Corp Hgb Conc 33.1 g/dL (32-36); Mean Corpuscular Volume 96.7 fL (81-99); Mean Platelet Vol. 10.9 fl (6.2-12.0); Monocyte# 0.54 X10^3/uL; Monocyte% 10.8 % (0-10); NRBC Flagged by Analyzer 0 % (0-5); Neutrophil # 3.41 X10^3/uL (2.7-7.7); Neutrophil % 68.5 % (47-70); Platelet Count 214 K/mm3 (150-450); RBC Distribution Width CV 14.5 % (11.6-14.6); RBC Distribution Width SD 51.3 fl (35.1-43.9); Red Blood Count 3.66 M/mm3 (4.2-5.4)
[2021-06-05 13:23] LABS: Albumin, Serum 3.3 g/dL (3.2-5.0)
[2021-06-06 11:27] LABS: Magnesium 1.8 mg/dL (1.6-2.6); Thyroid Stim Hormone (TSH) 2.12 uIU/mL (0.358-3.74)
[2021-06-14] VITALS (16 sets, daily range): BP systolic 87–125; BP diastolic 49–76; PULSE 52–61; RESP 16–18; TEMP 36.2–37; O2SAT 95–100; BMI 27.5
[2021-06-14] MEDS: Lactated Ringers 1,000 ML 75 ML IV (09:44)
[2021-06-14] MEDS: Lactated Ringers 1,000 ML 999 ML IV ×2 (09:44→13:38)
[2021-06-14] MEDS: Gabapentin 600 MG Tablet PO (09:45)
[2021-06-14] MEDS: Acetaminophen 500 MG Tablet 1000 MG PO ×2 (09:45→17:26)
[2021-06-14 09:47] LABS: International Normalized Ratio 1.2; Prothrombin Time (Protime)PT. 14.2 SECONDS (11.7-14.9)
[2021-06-14 10:35] LABS: Bedside Glucose 89 mg/dL (70-110)
[2021-06-14] MEDS: Cefazolin 2 GM in 0.9% Normal Saline 100 ML IV (11:15)
[2021-06-14] MEDS: dexAMETHasone 10 MG/ML Vial IV (11:25)
--- NOTE | 2021-06-14 12:53 | OP.PCM_ITS ---
Report of Operation Date of Procedure: 06/14/21 Pre-Operative Diagnosis: Left knee primary osteoarthritis Post-Operative Diagnosis: Left knee primary osteoarthritis Surgery/Procedure Performed:: Left knee minimally invasive robotic assisted total knee replacement Description of Surgical Findings:: Stable knee with good patella tracking Surgeon: Baldomero Hanks ring stamper: uRy Hernandez Type of Anesthesia: General Anesthesiologist: Evan Gallardo Special Medications: 2 g Ancef, 1 g TXA at incision, 1 g TXA closure, 10 mg Decadron, joint cocktail (5 mg Duramorph, 30 mL of 0.5% Ropivicaine, 1000 units of epinephrine, 30 mg of Toradol) Specimen's removed: Bony cuts Estimated Blood Loss (mL): 125 Fluids Replaced: Crystalloid Description of Procedure: Implants used: 1. Hammond size 2 triathlon cruciate retaining distal femoral press-fit component 2. Hammond size 3 press-fit tritanium tibial baseplate 3. Lbue X3 10 mm CS polyethylene 4. Hammond X3 29 mm asymmetric patella Brief history operative indications: 70-year-old female with history of left knee osteoarthritis with radiographic findings with loss of joint space, osteophyte formation and subchondral sclerosis. Failed conservative measures as mentioned in the H&P. Discussion of total knee arthroplasty as well as risk and benefits were discussed the patient including but not limited to blood loss, DVTs, PEs, neurovascular damage, general risk of anesthesia including loss of life, and stiffness or instability were discussed with patient. Patient demonstrated understanding and was able to sign informed consent. Procedure: On the date of procedure patient's left lower extremity was marked in the preoperative area. The patient was then taken back to the operating room where the patient was placed on the table in the supine position. All bony prominences were identified a well-padded. Anesthesia assumed control of the C-spine and airway and remained controlled throughout the remainder of the procedure. A to urniquet was placed on the left upper thigh and the leg was prepped in a sterile fashion. The surgeon then scrubbed at this time .Upon reentering the room left lower extremity was draped in a standard orthopedic fashion. A timeout was then called and everyone agreed upon the side, the site, the procedure to be performed, patient's identity and antibiotics given. Esmarch bandage was used to exsanguinate the extremity and the tourniquet was placed up to 250 mmHg with the knee in flexion. A midline skin incision was made and sharp dissection was taken down through skin subcutaneous tissue and f at. The standard medial parapatellar incision was made and the patella was subluxed laterally. An Appropriate deep MCL release was done and the fat pad was resected. Our attention was then directed to the patella. The patella was everted and a flat resection was made. The knee was then flexed up in 2 femoral pins were placed inside the incision and 2 tibial pins were placed outside the incision in the medial tibia bicortically. Once this was completed the 2 checkpoints in the femur and tibia were placed. Knee was then flexed up and the bony landmarks were registered. Once this was completed knee was taken through range of motion and manually stressed allowing us to a plan for an appropriate tibial cut. The robotic arm was brought into the field sterilely and checkpoint and saw were registered. Based on the patient's deformity the tibial cut was made in 2 degrees of varus. At this time the tensioner was then placed in the joint and ligament tension was checked at 90 degrees and full extension. Based on the patient's ligamentous tension appropriate adjustments were made to the operative plan and ligament releases were done. Once we were happy with our operative plan with balanced flexion and extension gaps our attention was directed to the femur. The robot was brought into the field sterilely and registered. Posterior condylar cuts, anterior chamfer cuts and anterior cuts were appropriately made for a size 2 femur. When these were completed the saws were switched out in the distal femoral and posterior chamfer cuts were made. Protecting the soft tissue throughout this time. A size 3 tibial base plate was selected. the knee was flexed to 90 degrees and the soft tissues and posterior osteophytes were removed from the joint. 40 cc of the periarticular injection was injected into the posterior medial corner of the joint. The appropriate trials were then placed on the femur and tibia. A trial polyethylene was trialed to ensure proper balancing and stability of the knee. The appropriate tibial internal rotation was then marked with a bovie. Our attention was then directed to the patella. The lug holes were drilled and the patella trial was placed. Patellar tracking was checked and deemed appropriate. Once we were happy lug holes were drilled for the femur and trial components were removed. the tibia was subluxed and pinned into place and the keel was punched and drilled appropriately. Final components were verified and opened, and cement was mixed in a vacuum. Blue Simplex cement was used. The wound was copiously irrigated with normal saline. When the cement was ready the components were impacted into place starting with the tibia, femur and finally cementing the patella. The trial poly component was placed and the knee was placed in full extension. All excess cement was removed in the process. Once the cement had cured the tracking, alignment and balance were verified and a size 10 mm CS polyethylene component was placed. Once the final components were placed a 3-minute dilute Betadine lavage was performed followed by an Irrisept lavage was performed and the wound was copiously irrigated with normal saline solution and the periarticular injection was given. The wound was closed in a layer haywood fashion using #1 vicryl interrupted sutures for the arthrotomy, 2-0 interrupted Vicryl suture for the subcuticular layer and sandra for final skin closure. A sterile compressive dressing was then placed. The patient was then awakened from anesthesia, transferred to the rholcomb and transferred to the PACU for recovery. Post op plan DVT ppx: Patient will resume Coumadin tomorrow. Bridging was not recommended by her physician managing Coumadin. thigh high compression stockings Follow up: in office in 2 weeks for wound check PT: to start POD #0 at hospital, outpatient PT should be arranged. My physician infertility medical assistant was a vital part of this case. He was important in appropriate retraction during the case, and protection of soft tissues during bony cuts. His intimate knowledge of the case and my steps aided in safe and expedient completion of the procedure as well as appropriate position of the leg during the case. He was also vital in assisting with closure under my direct supervision. Due to the complexity of this case robotic arm was used to assist in the surgery to improve accuracy and clinical outcomes. Complications No intraoperative complications Admit VTE Documentation VTE Present on Admission: No VTE Mechan Device Prophylaxis: SCD's and Thigh High SHIVANI Hose VTE Pharm Prophylaxis ordered?: Yes
--- NOTE | 2021-06-14 13:55 | RAD_ITS ---
STUDY: X-RAY - LEFT KNEE REASON FOR EXAM: Postoperative evaluation of left total knee arthroplasty. TECHNIQUE: 2 view(s) of the knee. COMPARISON: None. FINDINGS: There is a left total knee arthroplasty without evidence of complication. There is postoperative gas in the soft tissues and overlying skin sandra. RAD/Knee 1 or 2 Views IMPRESSION: Uncomplicated left total knee arthroplasty. Electronically Signed: Florin Barker MD at 14:59 EDT Tel , Service support ,
[2021-06-14] MEDS: Lactated Ringers 1,000 ML 125 ML IV (14:47)
--- NOTE | 2021-06-14 16:04 | PCM.PN.HOSP ---
Subjective Subjective Mrs. Barnes is a 70-year-old white female who presented to us from hospital on 06/14/2021 for an elective left total knee arthroplasty. She has had ongoing pain in her left knee for approximately 9 years. It has progressively getting worse over the past couple of years. She noted that particularly over the last 10 months her pain has significantly increased and she has had been difficulty ascending and descending stairs, difficulty with IADLs and ADLs, and other recreational activities. She has undergone conservative management with medications and therapy but has failed these measures and therefore she wished to proceed with a left total knee arthroplasty. She has atrial fibrillation at baseline as well as CKD. She follows with both a desktop operator and a emergency vehicle technician and was cleared preoperatively for surgery. She is on Coumadin at baseline and this was held prior to surgery for 5 days. Patient is currently ambulating and up to the bathroom with physical therapy. She is having some intermittent nausea and dry heaving. She overall is doing quite well with physical therapy. She has no significant pain complaints at this time. She is pleased that she now has her knee replaced. Objective Data Objective Data Vital Signs: Vital Signs Temp Pulse Resp BP Pulse Ox 98.6 F 54 L 16 102/50 L 95 06/14/21 15:45 06/14/21 15:45 06/14/21 15:45 06/14/21 15:45 06/14/21 15:45 Oxygen Flow Rate (L/min) 3 Oxygen Delivery Method Nasal Cannula Weight: 66 kg Body Mass Index (BMI) 27.5 Intake & Output: Intake and Output for Last 24 Hours 06/12/21 06/13/21 06/14/21 23:59 23:59 23:59 Intake Total 3334 / 3334 Balance 3334 / 3334 Lab / Micro Data Result Diagrams: 06/05/21 12:05 Labs: Laboratory Results - last 24 hr 06/14/21 09:30: PT 14.2, INR 1.2 06/14/21 09:39: POC Glucose 89 Micro: Microbiology 06/09/21 12:50 Swab (Method) Nasal Screen MRSA/MSSA - Final 06/09/21 12:30 Interface Orders SARS-CoV-2 Antigen (Rapid) - Final Radiography Diagnostic Testing: Radiology Impression Knee X-Ray 06/14/21 13:55 IMPRESSION: Uncomplicated left total knee arthroplasty. Electronically Signed: Florin Barker MD at 14:59 EDT Tel , Service support , Physical Exam Const alert, oriented x3, no apparent distress, healthy appearing and well nourished Constitutional Narrative: Overweight white female up ambulating with physical therapy to the bathroom, appears comfortable and nontoxic, carrying emesis bag as she is having intermittent nausea and dry heaves Exam Limitations: no limitations HEENT head/scalp atraumatic and moist oral mucous membranes HEENT Narrative: Tongue is red from Jell-O Head and Scalp: normocephalic Resp normal respiratory effort, no retractions, no use of accessory muscles and clear to auscultation bilaterally Auscultation: Negative for crackles, rales, rhonchi or wheezes Cardio regular rate, regular rhythm, S1 normal heart sound, S2 normal heart sound, no murmurs, no rub, no gallops, no clicks and no JVD GI normal to inspection, nondistended, normoactive bowel sounds, soft to palpation, non-tender and non-distended Extremity no clubbing, cyanosis or edema Extremity Narrative: Bilateral SHIVANI hose in place, left knee bandage in place with no drainage noted Peripheral Pulses: Yes pulses 2+ throughout Neuro oriented x3, CN's II-XII intact bilaterally, moves all extremities and no focal motor deficits Sensorium / Orientation: awake and alert Speech: speech normal Psych affect normal Assessment & Plan Assessment/Plan (1) Osteoarthritis of left knee: (2) Paroxysmal atrial fibrillation: (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: PLAN: Left knee osteoarthritis -Postop day 0 total left knee arthroplasty -Pain management per primary service -Bowel regimen -Hold oral anticoagulation until okay to restart from orthopedic surgery -PT/OT consultation PAF -Continue home beta-roxann/diltiazem -Restart Coumadin once cleared by orthopedic surgery Hypertension -Continue atenolol, diltiazem, losartan Hyperlipidemia -Continue atorvastatin Hypothyroidism -Continue levothyroxine Depression -Continue Wellbutrin DVT prophylaxis -Restart Coumadin as per orthopedic surgery's orders -SCDs Charges/Coding Visit Charges Inpatient E&M: 60991 Subs Hosp L2
[2021-06-14] MEDS: Ensure Surgery 237 ML LIQUID PO (17:26)
[2021-06-14] MEDS: Ondansetron 4 MG/2 ML Vial IV (17:52)
[2021-06-14] MEDS: Cefazolin 1 GM/50 ML BAG IV (18:56)
[2021-06-14] MEDS: Senna/Docusate Sodium 1 Tablet 2 TABLET PO (21:37)
[2021-06-14] MEDS: Atorvastatin Calcium 40 MG Tablet PO (21:37)
[2021-06-14] MEDS: Losartan Potassium 50 MG Tablet PO (21:37)
[2021-06-14] MEDS: buPROPion 75 MG Tablet PO (21:37)
[2021-06-15] VITALS (8 sets, daily range): BP systolic 103–118; BP diastolic 50–68; PULSE 57–77; RESP 16–18; TEMP 36.5–36.8; O2SAT 94–100
[2021-06-15] MEDS: Cefazolin 1 GM/50 ML BAG IV (03:39)
[2021-06-15] MEDS: Acetaminophen 500 MG Tablet 1000 MG PO ×2 (05:19→14:23)
[2021-06-15] MEDS: Losartan Potassium 50 MG Tablet PO (05:20)
[2021-06-15 05:49] LABS: Hematocrit 24.7 % (37-47); Hemoglobin 8.1 g/dL (12.0-15.0); Mean Corp Hgb Conc 32.8 g/dL (32-36); Mean Corpuscular Hgb 32.8 pg (27.0-32.0); Mean Platelet Vol. 11.4 fl (6.2-12.0); Platelet Count 165 K/mm3 (150-450); RBC Distribution Width CV 14.5 % (11.6-14.6); RBC Distribution Width SD 51.5 fl (35.1-43.9); Red Blood Count 2.47 M/mm3 (4.2-5.4); White Blood Count 8.4 K/mm3 (4.4-11.0)
[2021-06-15 06:06] LABS: International Normalized Ratio 1.3
[2021-06-15 06:15] LABS: Anion Gap 5 (5-15); BUN 35 mg/dL (7-18); BUN/Creat Ratio 27.1 RATIO (10-20); Calcium,Total 8.3 mg/dL (8.5-10.1); Chloride 102 mmol/L (98-107); Creatinine, Serum 1.29 mg/dL (0.55-1.02); EST Glomerular Filtration Rate 44 mL/min (>60); Est Glom Filt Rate - Afr Amer 53 mL/min (>60); Estimated Creatinine Clearance 31.06 ml/min; Glucose 211 mg/dL (74-106); Potassium 4.5 mmol/L (3.5-5.1); Sodium Level 134 mmol/L (136-145)
[2021-06-15] MEDS: Levothyroxine 125 MCG Tablet PO (06:23)
[2021-06-15] MEDS: Calcium Carb/Vitamin D 1 TABLET Tablet PO (08:29)
[2021-06-15] MEDS: 0.9% Saline Lock 10 ML Syringe IV (08:32)
[2021-06-15] MEDS: 0.9% Normal Saline 1,000 ML 75 ML IV (08:32)
--- NOTE | 2021-06-15 09:47 | PN.ORTHO_ITS ---
Subjective Subjective The patient was sitting in bed eating breakfast upon examination. Patient denies any chest pain, shortness of breath, dizziness, lightheadedness, nausea or vomiting, or calf pain. Pain is controlled on medications. No adverse overnight events. Patient did have drop in hemoglobin. Clinically she is currently asymptomatic. Patient has had some lower blood pressure and hospitalist did stop her losartan. We will continue to monitor. Discussed with hospitalist and will repeat H&H today. There is also been some drainage over the distal main incision. Dressing change will be performed by nursing with ABD and Jalil wrap. Objective Data Objective Data Vital Signs: Vital Signs Temp Pulse Resp BP Pulse Ox 97.8 F 77 16 106/50 L 96 06/15/21 08:36 06/15/21 08:36 06/15/21 08:36 06/15/21 08:36 06/15/21 08:36 Oxygen Flow Rate (L/min) 2 Oxygen Delivery Method Room Air Weight: 66 kg Body Mass Index (BMI) 27.5 Intake & Output: Intake and Output for Last 24 Hours 06/13/21 06/14/21 06/15/21 23:59 23:59 23:59 Intake Total 4634 / 4634 50 / 50 Output Total 200 / 200 Balance 4634 / 4534 -150 / -150 Lab / Micro Data Result Diagrams: 06/15/21 05:06 06/15/21 05:06 Labs: Laboratory Results - last 24 hr 06/14/21 09:30: PT 14.2, INR 1.2 06/14/21 09:39: POC Glucose 89 06/15/21 05:06: WBC 8.4, RBC 2.47 L, Hgb 8.1 L, Hct 24.7 L, MCV 100.0 H, MCH 32.8 H, MCHC 32.8, RDW Std Deviation 51.5 H, RDW Coeff of Aida 14.5, Plt Count 165, MPV 11.4 06/15/21 05:06: PT 15.0 H, INR 1.3 06/15/21 05:06: Sodium 134 L, Potassium 4.5, Chloride 102, Carbon Dioxide 27.0, Anion Gap 5, BUN 35 H, Creatinine 1.29 H, Estim Creat Clear Calc 31.06, Est GFR (MDRD) Af Amer 53 L, Est GFR (MDRD) Non-Af 44 L, BUN/Creatinine Ratio 27.1 H, Glucose 211 H, Calcium 8.3 L Micro: Microbiology 06/09/21 12:50 Swab (Method) Nasal Screen MRSA/MSSA - Final 06/09/21 12:30 Interface Orders SARS-CoV-2 Antigen (Rapid) - Final Radiography Diagnostic Testing: Radiology Impression Knee X-Ray 06/14/21 13:55 IMPRESSION: Uncomplicated left total knee arthroplasty. Electronically Signed: Florin Barker MD at 14:59 EDT Tel , Service support , Physical Exam Narrative Vital signs stable and afebrile. Patient did have some lower blood pressure readings. Blood pressure medications adjusted by hospitalist. Patient is able to plantarflex and dorsiflex actively. Sensation is intact to light touch to saphenous, sural, superficial and deep peroneal, and tibial distribution. Main dressing patient did have drainage contacting 3 borders distally. Remaining dressings clean dry and intact. Negative Homans bilaterally, negative signs and symptoms of DVT. Const alert, oriented x3 and no apparent distress Assessment & Plan Assessment/Plan (1) Status post total left knee replacement: PLAN: 1. S/P left total knee arthroplasty POD #1 2. Continue Pain Medications: Tylenol and meloxicam 3. DVT Prophylaxis: Patient has resumed her Coumadin as instructed by cardiology. 4. PT/OT: Weightbearing as tolerated. Patient had no dizziness or lightheadedness with physical therapy. 5. H & H: 8.1/24.7, asymptomatic. Postoperative anemia secondary to acute blood loss from surgery without any intra operative complications. We will start folic acid and ferrous sulfate. Repeat H&H will be done later today per medicine. 6. Continue postoperative medical management per medicine: Case was discussed with the hospitalist and at this time patient's losartan was placed on hold. He states she can resume this upon discharge. We will continue to monitor. 7. Encouraged Incentive Spirometry 8. Disposition: Plan will be for possible discharge home this afternoon if patient is medically stable. Patient would like her medications to be sent to [facility]. She will follow-up per postop instructions. She has outpatient physical therapy established. We will monitor patient's repeat H&H as well as vitals and if stable this afternoon potential for possible discharge. Patient will also follow-up with cardiology for appropriate INR check postoperatively and management of Coumadin. I have reviewed the [place] Automated Rx Reporting System (OARRS) report for this patient for refill pattern and other prescriber involvement as part of the [facility] surveillance for the provision of acute and chronic controlled medications. The report was requested and reviewed on the date of this entry and was considered in the prescribing process.
--- NOTE | 2021-06-15 10:02 | PCM.DC ---
Discharge Instructions Diet Discharge Diet: No restrictions Activity Discharge Activity: May Not Drive (while taking narcotic pain medications.) May shower in (days): 1 (Please turn dressing away from water. Okay to get wet as long as dressing is intact to skin.) Ice area for (Minutes): 20 (Every 1-2 hours while awake. Please place barrier between the skin and ice pack.) Weight Bearing Status: Weight bearing as tolerated Keep extremity elevated above heart level: Operative Extremity Dressing / Incision Call your doctor if your incision/area has: Continuous Slow Oozing, Sudden Increased Bleeding, Increased Pain/ Swelling, Increased Redness and Foul Smelling Discharge Call your doctor if you observe: Fever of 101 or Higher, Coldness, Increased Pain, Numbness or Tingling, Change in Color, Shortness of breath, Chest pain, Calf discomfort and Uncontrolled pain Remove Dressing in: 4 days (Okay to remove dressing on June 19, 2021) Additional Dressing/Incision Instructions:: Follow [facility] Post-op Instructions. Once postoperative dressing has been removed only use gentle soap and water over the incision. Do not use any ointments, Neosporin, salves, alcohol pads over the incision for 6 weeks postoperatively. Do not submerge underwater for 6 weeks postoperatively. Continue with SHIVANI hose/elastic stockings for 2 weeks postoperatively. May remove at nighttime but needs to be placed back on the leg during the day. Do NOT use alcohol with narcotic pain medication. Do NOT make important decisions while taking narcotic medication. If you have problems with taking your medication (rash, itching, nausea, etc.) call the office at once. Follow Up Care Test Results: Test results from this visit will be discussed in further detail at your follow-up appointment, if applicable. Discharge Plan Admission Admit Date/Time: 06/14/21 10:05 Attending Provider: Yusuf Crawford Primary Care Provider: Sandra Lopez Consulting Providers: Niesha Jj Instructions Additional Instructions / Restrictions: Follow-up as instructed with provider managing Coumadin and INR checks Discharge Orders/Prescriptions Prescriptions: New acetaminophen 500 mg Tablet 1,000 mg PO Q8 Qty: 100 RF: 0 ferrous sulfate [FeroSul] 325 mg (65 mg iron) Tablet 325 mg PO BID Qty: 30 RF: 0 folic acid 1 mg Tablet 1 mg PO DAILY Qty: 14 RF: 0 oxycodone 5 mg Tablet 5 - 10 mg PO Q4H PRN PRN (Reason: Pain Score 4-10) 5 Days Qty: 48 RF: 0 sennosides-docusate sodium [Stool Softener-Stimulant Laxat] 8.6-50 mg Tablet 2 tab PO BID Qty: 14 RF: 0 Continued levothyroxine 125 mcg tablet 125 mcg PO DAILY RF: 0 bupropion HCl 75 mg tablet 75 mg PO BID RF: 0 fluoxetine 20 MG capsule 20 mg PO DAILY RF: 0 atorvastatin 40 mg tablet 40 mg PO QHS RF: 0 warfarin 2.5 MG tablet 7.5 mg PO SUFRSA RF: 0 acetaminophen 500 MG tablet 1,000 - 2,000 mg PO Q6H PRN PRN (Reason: Pain 1-10 Or Fever) RF: 0 calcium carbonate-vitamin D3 1 EACH capsule 1 each PO DAILY RF: 0 diltiazem HCl 240 MG capsule,extended release 24hr 240 mg PO DAILY RF: 0 warfarin 2.5 MG tablet 5 mg PO MOTUWETH RF: 0 atenolol 50 mg tablet 50 mg PO DAILY RF: 0 losartan 50 mg tablet 50 mg PO BID RF: 0 Referrals / Follow Up: Sandra Lopez MD [Primary Care Provider] - Ruy Hernandez PA-C [PHYSICIAN SUPERVISOR [employer]LE [employer]ING] - 06/28/21 10:45 am Physical,Therapy [Other] - 06/20/21 1:00 pm Disposition Disposition (needs filled in before D/C Order can be placed): Home, Self Care
[2021-06-15] MEDS: Senna/Docusate Sodium 1 Tablet 2 TABLET PO (10:52)
[2021-06-15] MEDS: dilTIAZem CD 240 MG Capsule PO (10:52)
[2021-06-15] MEDS: FLUoxetine 20 MG Capsule PO (10:52)
[2021-06-15] MEDS: buPROPion 75 MG Tablet PO (10:53)
[2021-06-15] MEDS: Ensure Surgery 237 ML LIQUID PO (10:55)
[2021-06-15] MEDS: Famotidine 20 MG Tablet PO (10:55)
--- NOTE | 2021-06-15 11:24 | CASEMGMT ---
CINDY GOMEZ Assessment: Face to Face with pt for initial transition planning/care coordination assessment. CINDY GOMEZ introduced self and role at [facility], pt voices understanding and consents to assessment. Pt is A/O x4 and answers all questions appropriately at this time. Pt sitting up in chair in no distress with dtr at bedside. Care providers, pharmacy, and demographics verified/updated. Admitting Dx: L TKR PCP:John Specialists:nhan Hanks; Rajesh, nephro; Moodispaw, cardio Preferred Pharmacy: [facility] Insurance: MCR, [employer] Supp Prescription Benefit: yes LW/HPOA: Pt has a LW/DPOA on file at [facility]. Pt DPOA is her dtr Ghazal Simeon. LNOK: Ghazal Simeon, dtr; Pernell Feliciano, kong other Living Arrangements: Pt lives with sig other in a mobile home with 3 steps to enter with a rail. Pt reports being I in ADL's and denies concerns at home. Transportation: Pt drives self and denies concerns with transportation. Pt states her dtr or Pernell can transport her to medical appts as well. DME/HHC/SNF: Pt has a FWW, raised toilet seat and shower chair. She denies hx of HHC or SNF stays. Pt is set up for outpt PT at [facility] on 06/20. Pt is planning on staying with her dtr for a week or two in [place] then returning home. Dtr will transport her to therapy. Pt states no further concerns/needs. CM to follow. Advised pt to ask CM if any further question/concerns/needs arise, voices understanding. Pt Goal: To dtr's home with outpt therapy Plan: To dtr's home with outpt therapy
--- NOTE | 2021-06-15 11:34 | CASEMGMT ---
CINDY CM in to discuss COLEMAN form with patient. RN CM explained COLEMAN form, patient voiced understanding. Pt signed form and filed in chart. Pt provided with a copy of signed [employer]LE[employer] form. Patient had no further questions or concerns at this time.
--- NOTE | 2021-06-15 11:39 | PN.HOSP_ITS ---
Documented by User: Vikas JARQUIN 06/15/21 11:47 Subjective Subjective Patient is a 70-year-old female comfortably resting in bed, alert and orient x3. Patient denies development of any new symptoms in the past 24 hours. Denies chest pain, shortness of breath, palpitations, hemoptysis, sputum production, fever, chills, N/V/D. Objective Data Objective Data Vital Signs: Vital Signs Temp Pulse Resp BP Pulse Ox 97.8 F 64 16 103/60 98 06/15/21 08:36 06/15/21 10:47 06/15/21 08:36 06/15/21 10:47 06/15/21 10:47 Oxygen Flow Rate (L/min) 2 Oxygen Delivery Method Room Air Weight: 145 lb 8.081 oz Body Mass Index (BMI) 27.5 Intake & Output: Intake and Output for Last 24 Hours 06/13/21 06/14/21 06/15/21 23:59 23:59 23:59 Intake Total 4634 / 4634 50 / 50 Output Total 200 / 200 Balance 4634 / 4534 -150 / -150 Lab / Micro Data Result Diagrams: 06/15/21 12:20 06/15/21 05:06 Labs: Laboratory Results - last 24 hr 06/15/21 05:06: WBC 8.4, RBC 2.47 L, Hgb 8.1 L, Hct 24.7 L, MCV 100.0 H, MCH 32.8 H, MCHC 32.8, RDW Std Deviation 51.5 H, RDW Coeff of Aida 14.5, Plt Count 165, MPV 11.4 06/15/21 05:06: PT 15.0 H, INR 1.3 06/15/21 05:06: Sodium 134 L, Potassium 4.5, Chloride 102, Carbon Dioxide 27.0, Anion Gap 5, BUN 35 H, Creatinine 1.29 H, Estim Creat Clear Calc 31.06, Est GFR (MDRD) Af Amer 53 L, Est GFR (MDRD) Non-Af 44 L, BUN/Creatinine Ratio 27.1 H, Glucose 211 H, Calcium 8.3 L Micro: Microbiology 06/09/21 12:50 Swab (Method) Nasal Screen MRSA/MSSA - Final 06/09/21 12:30 Interface Orders SARS-CoV-2 Antigen (Rapid) - Final Radiography Diagnostic Testing: Radiology Impression Knee X-Ray 06/14/21 13:55 IMPRESSION: Uncomplicated left total knee arthroplasty. Electronically Signed: Florin Barker MD at 14:59 EDT Tel , Service support , Physical Exam Const alert, oriented x3 and no apparent distress HEENT head/scalp atraumatic, moist oral mucous membranes and oropharynx normal Head and Scalp: normocephalic Eyes PERRL, EOMs intact bilaterally and conjunctivae normal Neck no lymphadenopathy, supple and no JVD Resp normal respiratory effort, no retractions, no use of accessory muscles and clear to auscultation bilaterally Cardio regular rate, regular rhythm, no murmurs and no JVD GI normal to inspection, nondistended, normoactive bowel sounds, soft to palpation and non-tender Extremity normal to inspection, full ROM and no clubbing, cyanosis or edema Skin no rashes or lesions noted, no wounds, skin turgor normal and no jaundice Neuro CN's II-XII intact bilaterally Psych affect normal Assessment & Plan Assessment/Plan (1) Osteoarthritis of left knee: (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 1) paroxysmal atrial fibrillation. Continue home atenolol and diltiazem. Resume Coumadin when cleared by per orthopedic surgery. 2) HTN Continue atenolol, diltiazem and losartan. 3) hyperlipidemia Continue atorvastatin. 4) hypothyroidism Continue Synthroid. 5) depression Continue Wellbutrin. 6) left knee osteoarthritis Postop day 1 status post left left knee total arthroplasty. Management per or thopedic. DVT prophylaxis -SCDs, resume Coumadin as above. Patient seen by Vikas Grullon PA-C, under the supervision of Dr. Cintron. Documented by User: Dr. Yusuf Crawford MD 06/15/21 13:24 Objective Data Lab / Micro Data Result Diagrams: 06/15/21 12:20 06/15/21 05:06 Charges/Coding Addendum Addendum: Dr. Crawford: I personally reviewed the chart and examined the patient, and agree with the above findings. 70-year-old female came to the hospital for an elective left total knee replacement. She is doing well postoperatively, she did have some episodes of dizziness and low blood pressure immediately after surgery. Was continued on some IV fluids today chest help with her symptoms and she says that her dizziness has been ongoing for quite a while and is nothing new. Her hemoglobin was little bit low today at 8.1, however recheck demonstrates an 8.7. Creatinine is slightly elevated at 1.29 therefore recommended holding her losartan today and she can likely restart it tomorrow. She is okay for discharge today from medical standpoint, I do recommend she follow-up with her PCP in 3 to 5 days. Visit Charges OBSV E&M: 91496 Subsequent observation care L2
[2021-06-15] MEDS: Ferrous Sulfate 325 MG Tablet PO (12:05)
[2021-06-15 12:31] LABS: Hematocrit 26.5 % (37-47); Hemoglobin 8.7 g/dL (12.0-15.0)
[2021-06-15 14:11] LABS: INR Fingerstick 1.7; Prothrombin Time Fingerstick 19.7 SEC (11.9-14.4)
== END 2021-06-15 18:16 | disposition home or self-care (01) ==
LOC: SDC 15:05 → MS3 15:05
PROVIDERS: Anesthesiology; Admitting Provider Specialist; PCP Internal Medicine; Referring Provider Specialist; Visit Provider Family Medicine
PROC: 0SRD0JZ Replacement of Left Knee Joint with Synthetic Substitute, Open Approach (ICD-10-PCS; CPT 27447; principal; 2021-06-14 11:00)
DX: M17.12 Unilateral primary osteoarthritis, left knee (principal); N18.9 Chronic kidney disease, unspecified; I12.9 Hypertensive chronic kidney disease with stage 1 through stage 4 chronic kidney disease, or unspecified chronic kidney disease; I48.0 Paroxysmal atrial fibrillation; E78.5 Hyperlipidemia, unspecified; E03.9 Hypothyroidism, unspecified; F32.9 Major depressive disorder, single episode, unspecified; Z79.899 Other long term (current) drug therapy; Z79.01 Long term (current) use of anticoagulants; G25.81 Restless legs syndrome
CPT/HCPCS: 01402; 27447; 64447; S2900; 36415; 36416; 73560; 80048; 82040; 82962; 83735; 84443; 85014; 85018; 85025; 85027; 85610; 87081; 87426; 96361; 96365; 96366; 96375; 97110; 97162; 97166; 97530; 97535; 99218; 99251; C1776; C9803; J7030; J7040; J7120; A4216; G0378; G0463; J2405

== ENCOUNTER 2021-06-28 12:09 | Outpatient (RCR) | payer MEDICARE, OTHER, SELFPAY ==
[2021-06-13 19:38] VITALS: BMI 28.3
[2021-06-28 13:38] LABS: International Normalized Ratio 1.9; Prothrombin Time (Protime)PT. 21.1 SECONDS (11.7-14.9)
== END 2021-06-28 18:00 | disposition home or self-care (01) ==
LOC: LAB 12:09
PROVIDERS: Family Provider Internal Medicine; PCP Internal Medicine; Referring Provider Internal Medicine Cardiovascular Disease; Visit Provider Internal Medicine Cardiovascular Disease
DX: I48.0 Paroxysmal atrial fibrillation (principal); Z79.01 Long term (current) use of anticoagulants
CPT/HCPCS: 36415; 85610

== ENCOUNTER 2021-07-11 13:06 | Observation (INO) | payer MEDICARE, OTHER, SELFPAY ==
[2021-07-11 13:07] VITALS: BP 133/80; PULSE 86; RESP 16; TEMP 35.7; O2SAT 93; BMI 27.4
--- NOTE | 2021-07-11 14:18 | ED.RN ---
Pt. brought in by daughter. Daughter states pt. has been complaining of not feeling herself. Pt. is alert and oriented x3. Pt. does state they feel off.
--- NOTE | 2021-07-11 14:34 | CT_ITS ---
STUDY: CT BRAIN WITHOUT CONTRAST REASON FOR EXAM: Female, 70 years old. Confusion RADIATION DOSAGE (If Supplied By Facility): CTDIvol = ( 44.99 ) mGy, DLP = ( 782.05 ) mGycm TECHNIQUE: Transaxial CT imaging of the brain was performed without administration of intravenous contrast material. Individualized dose optimization techniques were used for this CT. COMPARISON: Comparison is made with prior study dated 08/16/2017. FINDINGS: Normal soft tissue structures. Normal calvarium. Normal size ventricles and extra-axial spaces for the patient''s age. Normal white matter tracts of the cerebral hemispheres. Normal basal ganglia and thalami. Normal brainstem. Normal cerebellum. There is no intracranial hemorrhage. There are no findings of an acute ischemic infarction. Normal visualized paranasal sinuses. CT/Brain/Head without Contrast IMPRESSION: Normal unenhanced CT scan of the brain. Electronically Signed: Gabriel Choudhary MD at 15:41 EDT , Service support ,
--- NOTE | 2021-07-11 14:35 | EKG12_ITS ---
Test Reason : Blood Pressure : / mmHG Vent. Rate : 087 BPM Atrial Rate : 087 BPM P-R Int : 128 ms QRS Dur : 092 ms QT Int : 360 ms P-R-T Axes : 087 022 034 degrees QTc Int : 433 ms Sinus rhythm with Premature supraventricular complexes Septal infarct , cannot be excluded Abnormal ECG Confirmed by MAMTA HAMMOND, RIOS ([id number]), editorial writer RANJANA VASQUEZ ([id number]) on 07/13/2021 8:48:41 AM Referred By: LEIGHTON Confirmed By:RIOS OLEARY MD
[2021-07-11 15:26] LABS: Absolute Lymphocyte Count 0.43 X10^3/uL (0.83-4.51); Absolute Neutrophil Count 1.4 X10^3/uL (2.0-7.7); Hemoglobin 10.5 g/dL (12.0-15.0); Lymphocyte # 0.43 X10^3/ul (0.83-4.51); Lymphocyte % 20.8 % (19-41); Mean Corp Hgb Conc 32.8 g/dL (32-36); Mean Corpuscular Hgb 30.6 pg (27.0-32.0); Mean Corpuscular Volume 93.3 fL (81-99); Mean Platelet Vol. 10.6 fl (6.2-12.0); Monocyte# 0.22 X10^3/uL; Monocyte% 10.6 % (0-10); NRBC Flagged by Analyzer 0 % (0-5); Neutrophil # 1.38 X10^3/uL (2.7-7.7); Neutrophil % 66.7 % (47-70); POSITIVE DIFFERENTIAL YES; Platelet Count 195 K/mm3 (150-450); RBC Distribution Width CV 16.2 % (11.6-14.6); Red Blood Count 3.43 M/mm3 (4.2-5.4); White Blood Count 2.1 K/mm3 (4.4-11.0)
[2021-07-11 16:04] LABS: Differential Indicated SCAN CRITERIA MET
[2021-07-11 16:06] LABS: Anisocytosis RARE; Platelet Estimate ADEQUATE (ADEQ); Red Cell Morphology N CHROM NORMAL (NORM C&C)
[2021-07-11 16:07] LABS: Macrocytosis RARE
[2021-07-11 16:39] LABS: ALB/GLOB Ratio 0.6 RATIO (0.9-2.4); AST(SGOT) 38 U/L (15-37); Alanine Aminotransfer ALT/SGPT 33 U/L (13-56); Albumin, Serum 2.3 g/dL (3.2-5.0); Alkaline Phosphatase 74 U/L (45-117); Anion Gap 10 (5-15); BUN 15 mg/dL (7-18); BUN/Creat Ratio 20.4 RATIO (10-20); Calcium,Total 8.3 mg/dL (8.5-10.1); Chloride 91 mmol/L (98-107); Creatinine, Serum 0.73 mg/dL (0.55-1.02); EST Glomerular Filtration Rate 83 mL/min (>60); Est Glom Filt Rate - Afr Amer 101 mL/min (>60); Estimated Creatinine Clearance 41.99 ml/min; Glucose 94 mg/dL (74-106); Protein, Total 6.3 g/dL (6.4-8.2); Sodium Level 125 mmol/L (136-145); Troponin-I HS 22 pg/mL (3.0-54.0)
[2021-07-11 16:57] VITALS: TEMP 37.9
[2021-07-11 16:59] VITALS: TEMP 38.3
[2021-07-11 16:59] LABS: Mucous, Urine 0 SEEN /hpf (<or=2+); Red Blood Cells-Urine 0 SEEN /hpf (0-5)
[2021-07-11 17:08] LABS: Color, Urine Yellow (Yellow); Glucose, Dipstick Normal (Normal); Ketone-Dipstick Negative (Negative); Leukocyte Esterase-Dipstick Negative /ul (Negative); Nitrite-Dipstick Negative (Negative); Occult Blood-Urine 25 /ul (Negative); Protein-Dipstick 500 mg/dl (Negative); Urine Bilirubin Dipstick Negative (Negative); Urine Clarity Clear (Clear); Urine Urobilinogen Normal (Normal)
[2021-07-11 17:30] LABS: Bacteria RARE /hpf (None Seen); Squamous Epithelial Cells - UA 0-5 SEEN /hpf (5-10); White Blood Cells 0-5 SEEN /hpf (0-5)
--- NOTE | 2021-07-11 18:11 | EDS_ITS ---
HPI History of Present Illness Chief Complaint: Mental Status Change Informant: patient and family Onset/Context/Timing Onset: Days (4-5) Context: Gradual Onset Timing: Continuous Quality: Confusion, decreased activity Location: Generalized Worsened by: Nothing Relieved by: Nothing Narrative Narrative: Patient presents with confusion and I am out of it for the past 4 to 5 days. Patient has had some increasing confusion. Daughter states patient has not been as active as normal. Daughter states patient has not been eating as much is normal. Daughter states patient had a fever of 100 at home yesterday. Daughter states the patient is normally very talkative and knows all of her medical conditions. Daughter states that over the past 4 to 5 days she has not been talking as much is normal and has not been as active as normal. Daughter states nothing makes it worse nothing makes it better. 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 Mitral valve insufficiency Non-rheumatic mitral regurgitation Non-rheumatic tricuspid valve insufficiency Non-smoker Paroxysmal atrial fibrillation Proteinuria Pure hypercholesterolemia Restless legs Shortness of breath on exertion SOB (shortness of breath) Thyroid disease Wears glasses Home Medications fluoxetine 20 mg PO DAILY 08/16/17 [History Last Taken 12/23/19] atenolol 50 mg tablet 50 mg PO DAILY tab 04/30/19 [History Last Taken 12/23/19] acetaminophen 1,000 - 2,000 mg PO Q6H PRN PRN 12/23/19 [History Last Taken 12/22/19] warfarin 7.5 mg PO SUFRSA 12/23/19 [History Last Taken 12/22/19] atorvastatin 40 mg tablet 40 mg PO QHS 05/18/20 [History Last Taken Unknown] bupropion HCl 75 mg tablet 75 mg PO DAILY 05/18/20 [History Last Taken Unknown] levothyroxine 125 mcg tablet 125 mcg PO DAILY tab 05/18/20 [History Last Taken Unknown] losartan 50 mg tablet 50 mg PO BID tab 08/11/20 [History Last Taken Unknown] calcium carbonate-vitamin D3 1 each PO DAILY 01/25/21 [History Last Taken Unknown] diltiazem HCl 240 mg PO DAILY 01/25/21 [History Last Taken Unknown] warfarin 5 mg PO MOTUWETH 01/25/21 [History Last Taken Unknown] acetaminophen 1,000 mg PO Q8 #100 tab 06/15/21 [Rx Last Taken Unknown] ferrous sulfate [FeroSul] 325 mg PO BID #30 tab 06/15/21 [Rx Last Taken Unknown] folic acid 1 mg PO DAILY #14 tab 06/15/21 [Rx Last Taken Unknown] oxycodone 5 - 10 mg PO Q4H PRN PRN 5 Days #48 tab 06/15/21 [Rx Last Taken Unknown] sennosides-docusate sodium [Stool Softener-Stimulant Laxat] 2 tab PO BID #14 tab 06/15/21 [Rx Last Taken Unknown] Allergy/AdvReac Type Severity Reaction Status Date / Time lisinopril AdvReac Intermediate cough Verified 07/11/21 13:06 Penicillins [PCN] AdvReac Mild Other Verified 07/11/21 13:06 Family History Father Heart disease Surgical History History of carpal tunnel surgery History of dilatation and curettage History of hip replacement, total History of tubal ligation Status post total left knee replacement Social History Smoking Status: Never smoker alcohol intake: never substance use type: does not use caffeine: No ROS ROS ED Constitutional Constitutional ED: Reports fever(s) and sweats; Denies chills Eyes Eyes: Denies blurry vision or change in vision ENT ENT ED: Denies rhinorrhea or sore throat Cardiovascular Cardiovascular: Denies chest pain or palpitations Respiratory/Chest Respiratory/Chest: Reports cough; Denies dyspnea Gastrointestinal Gastrointestinal: Denies nausea or vomiting Genitourinary Genitourinary ED: Denies dysuria or hematuria Musculoskeletal Musculoskeletal: Denies back pain or neck pain Integumentary Denies abscess or rash Neurologic Neurologic: Denies headache(s) or weakness Allergic/Immunologic Allergic/Immunologic ED: Denies mouth swelling or urticaria EXAM Physical Exam Const Vital Signs: 07/11/21 13:07 07/11/21 16:57 07/11/21 16:59 Temperature 96.3 F L 100.3 F H 101 F H Temperature Source Temporal Oral Oral Pulse Rate 86 Respiratory Rate 16 Blood Pressure 133/80 H Blood Pressure Mean 97 Pulse Ox 93 Oxygen Delivery Method Room Air Positive well nourished and well developed General Appearance ED: well developed HEENT Reports moist mucous membranes Neck supple and no JVD Resp normal respiratory effort and clear to auscultation bilaterally Cardio regular rate, regular rhythm and no murmurs GI normal to inspection, nondistended, normoactive bowel sounds and non-tender Palpation: soft Extremity normal to inspection Extremity Narrative: The incision over the left knee was healing well. There is no erythema. There is no sign of any infection. There is no pain with short arc range of motion. General Extremety ED: Negative for edema or tenderness General Extremity: Negative for edema Neuro oriented x3, CN's II-XII intact bilaterally and no sensory deficits noted Sensorium / Orientation: alert Motor Exam: strength 5/5 throughout Psych mental status grossly normal Skin no rashes or lesions noted MDM MDM MDM Narrative Medical decision making narrative: EKG was obtained. On my interpretation, it showed a normal sinus rhythm with a rate of 87. TN interval, QRS interval, and QTc intervals were all normal. [place] was normal. There are no acute ST or T wave changes. CBC shows a white blood cell count of 2.1. There are 1.9% immature granulocytes. Comprehensive metabolic profile shows a sodium of 125 and chloride of 91. BUN and creatinine were normal. Urinalysis does not show any evidence of urinary tract infection. CT scan of the brain was obtained. There is no acute intracranial abnormality. There are chronic changes noted. This was interpreted by the radiologist and reviewed by myself. Patient developed a fever here in the emergency department. Because of this, patient was given a dose of Tylenol. Blood cultures were added. Serum lactate was ordered. Chest x-ray was ordered. There is 1 view. On my interpretation, there are bilateral perihilar and lower lobe infiltrates. Radiologist also interpreted the x-rays and agrees. Case was discussed with the hospitalist. She will admit the patient to her service. Patient and family understand and are agreeable with the plan. All questions were answered. Lab Data Attestation: I reviewed the patient's lab results. Labs: Laboratory Results - last 24 hr 07/11/21 07/11/21 07/11/21 15:10 15:10 16:54 WBC 2.1 L RBC 3.43 L Hgb 10.5 L Hct 32.0 L MCV 93.3 MCH 30.6 MCHC 32.8 RDW Std Deviation 55.0 H RDW Coeff of Aida 16.2 H Plt Count 195 MPV 10.6 Immature Gran % (Auto) 1.900 H Neut % (Auto) 66.7 Lymph % (Auto) 20.8 [place] % (Auto) 10.6 H Eos % (Auto) 0.0 Baso % (Auto) 0.0 Absolute Neuts (auto) 1.4 L Absolute Lymphs (auto) 0.43 L Nucleated RBC % 0 Differential Comment SEE COMMENT Platelet Estimate ADEQUATE RBC Morphology N CHROM Anisocytosis RARE Macrocytosis RARE Sodium 125 L Potassium 4.0 Chloride 91 L Carbon Dioxide 24.0 Anion Gap 10 BUN 15 Creatinine 0.73 Estim Creat Clear Calc 41.99 Est GFR (MDRD) Af Amer 101 Est GFR (MDRD) Non-Af 83 BUN/Creatinine Ratio 20.4 H Glucose 94 Lactic Acid Calcium 8.3 L Total Bilirubin 0.50 AST 38 H ALT 33 Alkaline Phosphatase 74 Troponin I High Sens 22 Total Protein 6.3 L Albumin 2.3 L Globulin 4.0 Albumin/Globulin Ratio 0.6 L Urine Color Yellow Urine Clarity Clear Urine pH 6.0 Ur Specific [place] 1.020 Urine Protein 500 H Urine Glucose (UA) Normal Urine Ketones Negative Urine Occult Blood 25 H Urine Nitrite Negative Urine Bilirubin Negative Urine Urobilinogen Normal Ur Leukocyte Esterase Negative Urine RBC 0 SEEN Urine WBC 0-5 SEEN Ur Squamous Epith Cells 0-5 SEEN Urine Bacteria RARE Urine Mucus 0 SEEN 07/11/21 18:28 WBC RBC Hgb Hct MCV MCH MCHC RDW Std Deviation RDW Coeff of Aida Plt Count MPV Immature Gran % (Auto) Neut % (Auto) Lymph % (Auto) Jewell % (Auto) Eos % (Auto) Baso % (Auto) Absolute Neuts (auto) Absolute Lymphs (auto) Nucleated RBC % Differential Comment Platelet Estimate RBC Morphology Anisocytosis Macrocytosis Sodium Potassium Chloride Carbon Dioxide Anion Gap BUN Creatinine Estim Creat Clear Calc Est GFR (MDRD) Af Amer Est GFR (MDRD) Non-Af BUN/Creatinine Ratio Glucose Lactic Acid 0.5 Calcium Total Bilirubin AST ALT Alkaline Phosphatase Troponin I High Sens Total Protein Albumin Globulin Albumin/Globulin Ratio Urine Color Urine Clarity Urine pH Ur Specific [place] Urine Protein Urine Glucose (UA) Urine Ketones Urine Occult Blood Urine Nitrite Urine Bilirubin Urine Urobilinogen Ur Leukocyte Esterase Urine RBC Urine WBC Ur Squamous Epith Cells Urine Bacteria Urine Mucus Radiography Diagnostic Testing: Radiology Impression Brain CT 07/11/21 14:34 IMPRESSION: Normal unenhanced CT scan of the brain. Electronically Signed: Gabriel Choudhary MD at 15:41 EDT , Service support , Chest X-Ray 07/11/21 18:20 IMPRESSION: Perihilar opacities bilaterally, right more than left. Cardiomegaly. Electronically Signed: Jacobo Lee DO at 19:02 EDT Tel [phone], Service support , EKG Initial EKG: Attestation: I personally reviewed and interpreted this EKG as follows: Interpretation: Sinus Rhythm (87) and No Acute Injury Pattern Prior EKG tracings: available for review Prior: Unchanged (09/09/2018) Treatment and Re-Evaluation Vital Sign Attestation:: Vital signs were reviewed prior to admission. They are stable. Discharge Plan Dx/Rx/DC Orders Clinical Impression: Altered mental status, Pneumonia due to COVID-19 virus, Hyponatremia Disposition Disposition: Acute Care Hospital [facility]
--- NOTE | 2021-07-11 18:20 | RAD_ITS ---
STUDY: X-RAY CHEST REASON FOR EXAM: Female, 70 years old. Fever TECHNIQUE: Frontal view COMPARISON: 07/17/2018 FINDINGS: The lungs are expanded. Bilateral perihilar opacities, right more than left. Cardiomegaly. Normal mediastinum and tali. Normal pulmonary arteries. Normal visualized aortic arch and descending thoracic aorta. Degenerative changes of the thoracic spine. Normal visualized ribs, clavicles, and shoulders. There is no demonstrated abnormality of the visualized soft tissue structures of the upper abdomen. RAD/Chest 1 View (Portable) IMPRESSION: Perihilar opacities bilaterally, right more than left. Cardiomegaly. Electronically Signed: Jacobo Lee DO at 19:02 EDT Tel [phone], Service support ,
[2021-07-11] MEDS: 0.9% Normal Saline 1,000 ML 1000 ML IV (18:52)
[2021-07-11 19:04] LABS: Lactic Acid 0.5 mmol/L (0.4-1.9)
[2021-07-11] MEDS: Acetaminophen 500 MG Tablet 1000 MG PO (19:05)
[2021-07-11 19:06] VITALS: BP 152/84; PULSE 90; RESP 18; TEMP 38.3; O2SAT 96
[2021-07-11 19:16] LABS: International Normalized Ratio 1.9; Prothrombin Time (Protime)PT. 20.6 SECONDS (11.7-14.9)
--- NOTE | 2021-07-11 19:22 | PCM.HP.STD ---
Documented by User: Irais Stearns NP-C 07/11/21 19:59 HPI - General General Date of Admission: 07/11/21 Date of Service: 07/11/21 Chief Complaint: Altered mental status HPI Narrative GAMAL COLINDRES, is a 70 F who presents for concern for altered mental status. Patient's daughter at bedside and states over the past 3 days she has noticed her mom has been increasingly fatigued and confused. Patient states that her brain feels fuzzy. Patient reports chills and temperature of 100 however patient's daughter reports that patient had recent knee surgery and has been taking Tylenol [id number] for knee pain and she is concerned that the patient is possibly more febrile than what she presents. Patient's daughter also reports that she has noticed an increase in her mom's coughing and that it has went from a dry chronic cough to a moist slightly productive cough along with increased nasal congestion. [facility] Medical History (Updated 07/11/21 @ 20:14 by Norma Olmos) Ambulates with cane Anxiety Arthritis Back pain Cardiology follow-up encounter CKD (chronic kidney disease) Depression Dietary restriction Edema Essential hypertension History of atrial fibrillation History of cardioversion History of echocardiogram History of irregular heartbeat History of pain when walking Hypertension Hypothyroidism Hypothyroidism skilled nursing current use of anticoagulant Mitral valve insufficiency Non-rheumatic mitral regurgitation Non-rheumatic tricuspid valve insufficiency Non-smoker Paroxysmal atrial fibrillation Proteinuria Pure hypercholesterolemia Restless legs Shortness of breath on exertion SOB (shortness of breath) Thyroid disease Wears glasses Home Medications fluoxetine 20 mg PO DAILY 08/16/17 [History Last Taken 12/23/19] atenolol 50 mg tablet 50 mg PO DAILY tab 04/30/19 [History Last Taken 12/23/19] acetaminophen 1,000 - 2,000 mg PO Q6H PRN PRN 12/23/19 [History Last Taken 12/22/19] warfarin 7.5 mg PO SUFRSA 12/23/19 [History Last Taken 12/22/19] atorvastatin 40 mg tablet 40 mg PO QHS 05/18/20 [History Last Taken Unknown] bupropion HCl 75 mg tablet 75 mg PO DAILY 05/18/20 [History Last Taken Unknown] levothyroxine 125 mcg tablet 125 mcg PO DAILY tab 05/18/20 [History Last Taken Unknown] losartan 50 mg tablet 50 mg PO BID tab 10/29/20 [History Last Taken Unknown] calcium carbonate-vitamin D3 1 each PO DAILY 01/25/21 [History Last Taken Unknown] diltiazem HCl 240 mg PO DAILY 01/25/21 [History Last Taken Unknown] warfarin 5 mg PO MOTUWETH 01/25/21 [History Last Taken Unknown] acetaminophen 1,000 mg PO Q8 #100 tab 06/15/21 [Rx Last Taken Unknown] ferrous sulfate [FeroSul] 325 mg PO BID #30 tab 06/15/21 [Rx Last Taken Unknown] folic acid 1 mg PO DAILY #14 tab 06/15/21 [Rx Last Taken Unknown] oxycodone 5 - 10 mg PO Q4H PRN PRN 5 Days #48 tab 06/15/21 [Rx Last Taken Unknown] sennosides-docusate sodium [Stool Softener-Stimulant Laxat] 2 tab PO BID #14 tab 06/15/21 [Rx Last Taken Unknown] Allergy/AdvReac Type Severity Reaction Status Date / Time lisinopril AdvReac Intermediate cough Verified 07/11/21 13:06 Penicillins [PCN] AdvReac Mild Other Verified 07/11/21 13:06 Family History Father Heart disease Surgical History History of carpal tunnel surgery History of dilatation and curettage History of hip replacement, total History of tubal ligation Status post total left knee replacement Social History Smoking Status: Never smoker alcohol intake: never substance use type: does not use caffeine: No ROS Constitutional Constitutional: Reports chills, fatigue, fever(s) and malaise; Denies anorexia or weakness Cardiovascular Cardiovascular: Denies chest pain, edema, palpitations or syncope Respiratory/Chest Respiratory/Chest: Reports cough; Denies shortness of breath at rest, shortness of breath with exertion or wheezing Gastrointestinal Gastrointestinal: Denies abdominal pain, constipation, diarrhea, nausea or vomiting Genitourinary Genitourinary: Denies dysuria Musculoskeletal Musculoskeletal: Reports joint pain; Denies back pain, extremity pain or joint stiffness Integumentary Integumentary: Denies dry skin Neurologic Neurologic: Reports confusion; Denies abnormal gait, abnormal speech or dizziness Psychiatric Psychiatric: Denies anxiety or depression Endocrine Endocrinology: Denies change in body appearance Hematologic/Lymphatic Hematologic/Lymphatic: Denies anemia, easy bleeding or easy bruising Vital Signs Vital Signs Vital Signs: 07/11/21 13:07 07/11/21 16:57 07/11/21 16:59 Temperature 96.3 F L 100.3 F H 101 F H Temperature Source Temporal Oral Oral Pulse Rate 86 Respiratory Rate 16 Blood Pressure 133/80 H Blood Pressure Mean 97 Pulse Ox 93 Oxygen Delivery Method Room Air 07/11/21 19:06 Temperature 101 F H Temperature Source Oral Pulse Rate 90 Respiratory Rate 18 Blood Pressure 152/84 H Blood Pressure Mean 106 Pulse Ox 96 Oxygen Delivery Method Weight Weight: 150 lb Body Mass Index (BMI) 27.4 Physical Exam Const alert General Appearance: cooperative Orientation / Consciousness: oriented to person, oriented to place and confused HEENT normocephalic and head/scalp atraumatic Eyes conjunctivae normal and no scleral icterus Neck no lymphadenopathy and supple General: trachea midline Resp normal respiratory effort, normal air movement and clear to auscultation bilaterally Cardio regular rate, regular rhythm, S1 normal heart sound, S2 normal heart sound and peripheral pulses 2+ throughout GI normal to inspection, nondistended, normoactive bowel sounds, soft to palpation and non-tender Extremity normal capillary refill and no clubbing, cyanosis or edema General Extremity: no tenderness to palpation of joints or extremities Skin General Skin Exam: no breakdown and turgor normal Lesions: no lesions Rashes: no rashes Neuro no focal motor deficits and no sensory deficits noted Speech: speech normal Motor Exam: Negative for general weakness Psych cooperative and affect normal Appearance: appropriate Thought Process: confused Results Lab / Micro Data Result Diagrams: 07/11/21 15:10 07/11/21 15:10 Labs: Laboratory Results - last 24 hr 07/11/21 15:10: WBC 2.1 L, RBC 3.43 L, Hgb 10.5 L, Hct 32.0 L, MCV 93.3, MCH 30.6, MCHC 32.8, RDW Std Deviation 55.0 H, RDW Coeff of Aida 16.2 H, Plt Count 195, MPV 10.6, Immature Gran % (Auto) 1.900 H, Neut % (Auto) 66.7, Lymph % (Auto) 20.8, [place] % (Auto) 10.6 H, Eos % (Auto) 0.0, Baso % (Auto) 0.0, Absolute Neuts (auto) 1.4 L, Absolute Lymphs (auto) 0.43 L, Nucleated RBC % 0, Differential Comment SEE COMMENT, Platelet Estimate ADEQUATE, RBC Morphology N CHROM, Anisocytosis RARE, Macrocytosis RARE 07/11/21 15:10: Sodium 125 L, Potassium 4.0, Chloride 91 L, Carbon Dioxide 24.0, Anion Gap 10, BUN 15, Creatinine 0.73, Estim Creat Clear Calc 41.99, Est GFR (MDRD) Af Amer 101, Est GFR (MDRD) Non-Af 83, BUN/Creatinine Ratio 20.4 H, Glucose 94, Calcium 8.3 L, Total Bilirubin 0.50, AST 38 H, ALT 33, Alkaline Phosphatase 74, Troponin I High Sens 22, Total Protein 6.3 L, Albumin 2.3 L, Globulin 4.0, Albumin/Globulin Ratio 0.6 L 07/11/21 16:54: Urine Color Yellow, Urine Clarity Clear, Urine pH 6.0, Ur Specific [place] 1.020, Urine Protein 500 H, Urine Glucose (UA) Normal, Urine Ketones Negative, Urine Occult Blood 25 H, Urine Nitrite Negative, Urine Bilirubin Negative, Urine Urobilinogen Normal, Ur Leukocyte Esterase Negative, Urine RBC 0 SEEN, Urine WBC 0-5 SEEN, Ur Squamous Epith Cells 0-5 SEEN, Urine Bacteria RARE, Urine Mucus 0 SEEN 07/11/21 18:28: Lactic Acid 0.5 07/11/21 19:00: PT 20.6 H, INR 1.9 Micro: Microbiology 07/11/21 17:25 Nasal Secretion SARS-CoV-2 Antigen (Rapid) - Final SARS-CoV-2 (COVID 19) Radiology Impression Brain CT 07/11/21 14:34 IMPRESSION: Normal unenhanced CT scan of the brain. Electronically Signed: Gabriel Choudhary MD at 15:41 EDT , Service support , Chest X-Ray 07/11/21 18:20 IMPRESSION: Perihilar opacities bilaterally, right more than left. Cardiomegaly. Electronically Signed: Jacobo Lee DO at 19:02 EDT Tel [phone], Service support , Assessment & Plan Assessment/Plan (1) Altered mental status: QUALIFIERS: Altered mental status type: disorientation Qualified Code(s): R41.0 - Disorientation, unspecified (2) Pneumonia due to COVID-19 virus: (3) Hyponatremia: PLAN: 1. Altered mental status -Admit to medical surgical for observation -UA negative for urinary tract infection -Covid antigen positive, Covid PCR ordered per patient's family's request along with respiratory panel -CBC, BMP, TSH ordered -PT and OT to eval and treat -Patient's daughter request that she be notified of all new medication or medication changes during patient's admission 2. Hyponatremia -Sodium 125, patient received 1 L normal saline in ER -Normal saline 100 ml/hr -Sodium level ordered for 10 PM, CMP ordered in a.m. -Strict intake and output -Daily weight 3. Leukopenia -Likely secondary to COVID-19 infection -CBC ordered daily, will trend 4. Pneumonia due to COVID-19 virus -Chest x-ray demonstrates perihilar opacities bilaterally right more than left -Patient currently on room air, no shortness of breath noted -Covid precautions ordered 5. Long-term current use of anticoagulant -INR 1.9, continue warfarin 7.5 mg p.o. Saturday and Saturday, increase warfarin 6 mg p.o. Saturday -PT/INR ordered for a.m. We will continue patient home medication regimen in relation to patient chronic diseases. DVT prophylaxis-no pharmacological prophylaxis indicated, patient chronically anticoagulated with warfarin This patient was seen by Irais Stearns NP-C under the supervision of Dr. Nguyen. Documented by User: Dr. Jeannie Nguyen MD 07/11/21 20:22 HPI - General General Date of Admission: 07/11/21 [facility] Medical History (Updated 07/11/21 @ 20:14 by Norma Olmos) Ambulates with cane Anxiety Arthritis Back pain Cardiology follow-up encounter CKD (chronic kidney disease) Depression Dietary restriction Edema Essential hypertension History of atrial fibrillation History of cardioversion History of echocardiogram History of irregular heartbeat History of pain when walking Hypertension Hypothyroidism Hypothyroidism skilled nursing current use of anticoagulant Mitral valve insufficiency Non-rheumatic mitral regurgitation Non-rheumatic tricuspid valve insufficiency Non-smoker Paroxysmal atrial fibrillation Proteinuria Pure hypercholesterolemia Restless legs Shortness of breath on exertion SOB (shortness of breath) Thyroid disease Wears glasses Home Medications fluoxetine 20 mg PO DAILY 08/16/17 [History Last Taken 12/23/19] atenolol 50 mg tablet 50 mg PO DAILY tab 04/30/19 [History Last Taken 12/23/19] acetaminophen 1,000 - 2,000 mg PO Q6H PRN PRN 12/23/19 [History Last Taken 12/22/19] warfarin 7.5 mg PO SUFRSA 12/23/19 [History Last Taken 12/22/19] atorvastatin 40 mg tablet 40 mg PO QHS 05/18/20 [History Last Taken Unknown] bupropion HCl 75 mg tablet 75 mg PO DAILY 05/18/20 [History Last Taken Unknown] levothyroxine 125 mcg tablet 125 mcg PO DAILY tab 05/18/20 [History Last Taken Unknown] losartan 50 mg tablet 50 mg PO BID tab 08/11/20 [History Last Taken Unknown] calcium carbonate-vitamin D3 1 each PO DAILY 01/25/21 [History Last Taken Unknown] diltiazem HCl 240 mg PO DAILY 01/25/21 [History Last Taken Unknown] warfarin 5 mg PO MOTUWETH 01/25/21 [History Last Taken Unknown] acetaminophen 1,000 mg PO Q8 #100 tab 06/15/21 [Rx Last Taken Unknown] ferrous sulfate [FeroSul] 325 mg PO BID #30 tab 06/15/21 [Rx Last Taken Unknown] folic acid 1 mg PO DAILY #14 tab 06/15/21 [Rx Last Taken Unknown] oxycodone 5 - 10 mg PO Q4H PRN PRN 5 Days #48 tab 06/15/21 [Rx Last Taken Unknown] sennosides-docusate sodium [Stool Softener-Stimulant Laxat] 2 tab PO BID #14 tab 06/15/21 [Rx Last Taken Unknown] Allergy/AdvReac Type Severity Reaction Status Date / Time lisinopril AdvReac Intermediate cough Verified 07/11/21 13:06 Penicillins [PCN] AdvReac Mild Other Verified 07/11/21 13:06 Family History Father Heart disease Surgical History History of carpal tunnel surgery History of dilatation and curettage History of hip replacement, total History of tubal ligation Status post total left knee replacement Social History Smoking Status: Never smoker alcohol intake: never substance use type: does not use caffeine: No Results Lab / Micro Data Result Diagrams: 07/11/21 15:10 07/11/21 15:10 Charges/Coding Addendum Addendum: This patient was seen in conjunction with Zeenat Bird. I have independently interviewed and examined the patient and reviewed pertinent historical, laboratory, and other data. I have reviewed her note and concur with her documentation 70-year-old female with past medical history of paroxysmal atrial fibrillation, hypothyroidism, not vaccinated for COVID-19 infection who comes in with upper respiratory infection ongoing for about 4 days. Patient has been having fevers. Her daughter stated that she appeared confused. She is usually very sharp and could answer questions very easily. She appears to be hesitant with her answers. Denied any diarrhea or nausea or vomiting. She has been coughing, more than her usual Patient lives at home with her significant other. Vitals are stable except for temperature of 101F, blood pressure is 132/84 Physical Exam: Gen: Comfortable, not pale, not jaundiced, not on oxygen CVS:HS I +II, regular, no murmurs RESP: Diminished at lung bases GI: BS present and normal, soft, nontender, no palpable organs EXT:No edema ASSESSMENT: 1. Acute metabolic encephalopathy 2. Acute COVID-19 infection without hypoxia 3. Acute on chronic hyponatremia 4. Paroxysmal atrial fibrillation 5. Anxiety/depression 6. Hypothyroidism Plan: Continue gentle IV fluids for 1 L Continue to monitor mentation Encourage use of incentive spirometer Continue on warfarin and rest of home medication Repeat INR in a.m. as well as CBCD and CMP PT OT to evaluate and treat I discussed and explained in details the various types of CODE STATUS-full code, DNR CCA, DNR CC. Patient and daughter chose full code Time spent discussing CODE STATUS 16 minutes Visit Charges Inpatient E&M: 18467 Init Hosp L3 Procedures Hospitalists Procedures: 89042 Advncd Care Plan 30 Min
[2021-07-11 19:59] VITALS: BMI 28.4
[2021-07-11 20:17] VITALS: BP 149/77; PULSE 83; RESP 20; TEMP 37.8; O2SAT 96
[2021-07-11] MEDS: Losartan Potassium 50 MG Tablet PO (20:53)
[2021-07-11] MEDS: 0.9% Normal Saline 1,000 ML 100 ML IV (20:53)
[2021-07-11] MEDS: Senna/Docusate Sodium 1 Tablet 2 TABLET PO (20:53)
[2021-07-11 21:32] VITALS: O2SAT 96
[2021-07-11 21:46] LABS: Sodium Level 127 mmol/L (136-145)
--- NOTE | 2021-07-11 21:48 | PCS.PANDOC ---
PANDEMIC DOCUMENTATION INITIATED: Date: 05/29/2021 Time: 1900 Emergency documentation initiated 07/11/21 @ 1999
[2021-07-11 22:35] LABS: Probe Check PASS
[2021-07-12] VITALS (13 sets, daily range): BP systolic 115–168; BP diastolic 67–96; PULSE 82–101; RESP 16–19; TEMP 36.8–39.3; O2SAT 93–99
[2021-07-12] MEDS: Losartan Potassium 50 MG Tablet PO ×2 (04:37→21:39)
[2021-07-12] MEDS: dilTIAZem CD 240 MG Capsule PO (04:37)
[2021-07-12] MEDS: Levothyroxine 125 MCG Tablet PO (06:27)
--- NOTE | 2021-07-12 07:24 | PCS.PANDOC ---
PANDEMIC DOCUMENTATION INITIATED: Date: 05/29/2021 Time: 190
[2021-07-12 07:31] LABS: Absolute Lymphocyte Count 0.31 X10^3/uL (0.83-4.51); Absolute Neutrophil Count 1.8 X10^3/uL (2.0-7.7); Basophil# 0.01 X10^3/uL; Basophil% 0.4 % (0-1); Eosinophil# 0.01 X10^3/uL; Eosinophils% 0.4 % (0-5); Hematocrit 32.2 % (37-47); Hemoglobin 10.5 g/dL (12.0-15.0); Lymphocyte # 0.31 X10^3/ul (0.83-4.51); Lymphocyte % 13.1 % (19-41); Mean Corp Hgb Conc 32.6 g/dL (32-36); Mean Corpuscular Hgb 31.1 pg (27.0-32.0); Mean Corpuscular Volume 95.3 fL (81-99); Monocyte% 8.4 % (0-10); NRBC Flagged by Analyzer 0 % (0-5); Neutrophil # 1.81 X10^3/uL (2.7-7.7); Neutrophil % 76.4 % (47-70); POSITIVE DIFFERENTIAL YES; Platelet Count 183 K/mm3 (150-450); RBC Distribution Width CV 16.4 % (11.6-14.6); RBC Distribution Width SD 56.8 fl (35.1-43.9); Red Blood Count 3.38 M/mm3 (4.2-5.4); White Blood Count 2.4 K/mm3 (4.4-11.0)
[2021-07-12 07:40] LABS: Differential Indicated SCAN CRITERIA MET
[2021-07-12 08:17] LABS: Anion Gap 9 (5-15); BUN 13 mg/dL (7-18); Calcium,Total 8.1 mg/dL (8.5-10.1); Chloride 96 mmol/L (98-107); Creatinine, Serum 0.59 mg/dL (0.55-1.02); EST Glomerular Filtration Rate 107 mL/min (>60); Est Glom Filt Rate - Afr Amer 130 mL/min (>60); Estimated Creatinine Clearance 40.07 ml/min; Glucose 83 mg/dL (74-106); Potassium 4.2 mmol/L (3.5-5.1); Sodium Level 128 mmol/L (136-145)
[2021-07-12 08:19] LABS: International Normalized Ratio 1.9; Prothrombin Time (Protime)PT. 20.8 SECONDS (11.7-14.9)
[2021-07-12] MEDS: FLUoxetine 20 MG Capsule PO (11:49)
[2021-07-12] MEDS: Calcium Carb/Vitamin D 1 TABLET Tablet PO (11:49)
[2021-07-12] MEDS: buPROPion 75 MG Tablet PO (13:54)
--- NOTE | 2021-07-12 15:50 | CASEMGMT ---
CINDY GOMEZ Assessment: Face to Face with pt for initial transition planning/care coordination assessment. CINDY GOMEZ introduced self and role at [facility], pt voices understanding and consents to assessment. Pt is A/O x4 and answers all questions appropriately at this time. Pt lying in bed in no distress on RA. Care providers, pharmacy, and demographics verified/updated. Admitting Dx: debility, COVID 19 PCP:John Specialists:Demario, ortho; Rajesh, nephro; [place], cardio Preferred Pharmacy: [facility] Insurance: [facility], [employer] Supp Prescription Benefit: yes LW/HPOA: Pt has a LW/DPOA on file at [facility]. Pt DPOA is her dtr Ghazal Simeon. LNOK: Ghazal Simeon, dtr; Pernell Feliciano, sig other Living Arrangements: Pt lives with sig other in a mobile home with 3 steps to enter with a rail. Pt reports being I in ADL's and denies concerns at home. Transportation: Pt drives self and denies concerns with transportation. Pt states her dtr or Pernell can transport her to medical appts as well. DME/HHC/SNF: Pt has a FWW, raised toilet seat and shower chair. She denies hx of HHC or SNF stays. Pt was still going to outpt therapy. She would now like to do home therapy as she will be quarantined. Pt was first tested for COVID at [facility]. Pt states her sig other has not been tested. She can quarantine from him by using separate bedrooms and bathrooms. She does have family who can provide her with groceries and supplies. Pt states no further concerns/needs. CM to follow. Advised pt to ask CM if any further question/concerns/needs arise, voices understanding. Pt Goal:Home with HHC Plan: Home with HHC
[2021-07-12] MEDS: Acetaminophen 325 MG Tablet 650 MG PO (16:17)
--- NOTE | 2021-07-12 16:57 | PN.HOSP_ITS ---
Subjective Subjective Patient is currently sitting up on a chair at the bedside eating lunch. Her appetite has been so-so. She ate about 50% of her breakfast and nibbled at her lunch but did not really have any solid intake at lunchtime. She reports she is not that hungry and only complaining of left knee pain at this time she is cur rently alert and oriented to self, year and POTUS she was confused on the month. Sponsors were not slow. She denies any current shortness of breath. Objective Data Objective Data Vital Signs: Vital Signs Temp Pulse Resp BP Pulse Ox 101.1 F H 101 H 16 136/78 H 94 07/12/21 16:08 07/12/21 16:08 07/12/21 16:08 07/12/21 16:08 07/12/21 16:08 Oxygen Delivery Method Room Air Weight: 68 kg Body Mass Index (BMI) 28.4 Intake & Output: Intake and Output for Last 24 Hours 07/10/21 07/11/21 07/12/21 23:59 23:59 23:59 Intake Total 1000 / 1150 1670 / 1670 Balance 1000 / 1150 1670 / 1670 Lab / Micro Data Result Diagrams: 07/12/21 06:42 07/12/21 06:42 Labs: Laboratory Results - last 24 hr 07/11/21 16:54: Urine Color Yellow, Urine Clarity Clear, Urine pH 6.0, Ur Specific [place] 1.020, Urine Protein 500 H, Urine Glucose (UA) Normal, Urine Ketones Negative, Urine Occult Blood 25 H, Urine Nitrite Negative, Urine Bilirubin Negative, Urine Urobilinogen Normal, Ur Leukocyte Esterase Negative, Urine RBC 0 SEEN, Urine WBC 0-5 SEEN, Ur Squamous Epith Cells 0-5 SEEN, Urine Bacteria RARE, Urine Mucus 0 SEEN 07/11/21 18:28: Lactic Acid 0.5 07/11/21 19:00: PT 20.6 H, INR 1.9 07/11/21 21:11: Sodium 127 L 07/11/21 21:28: COVID-19 (IOANA) Positive 07/12/21 06:42: WBC 2.4 L, RBC 3.38 L, Hgb 10.5 L, Hct 32.2 L, MCV 95.3, MCH 31.1, MCHC 32.6, RDW Std Deviation 56.8 H, RDW Coeff of Aida 16.4 H, Plt Count 183, MPV 11.0, Immature Gran % (Auto) 1.300 H, Neut % (Auto) 76.4 H, Lymph % (Auto) 13.1 L, [place] % (Auto) 8.4, Eos % (Auto) 0.4, Baso % (Auto) 0.4, Absolute Neuts (auto) 1.8 L, Absolute Lymphs (auto) 0.31 L, Nucleated RBC % 0, Differential Comment COMMENT, Diff Path Review February foll 07/12/21 06:42: PT 20.8 H, INR 1.9 07/12/21 06:42: Sodium 128 L, Potassium 4.2, Chloride 96 L, Carbon Dioxide 23.0, Anion Gap 9, BUN 13, Creatinine 0.59, Estim Creat Clear Calc 40.07, Est GFR (MDRD) Af Amer 130, Est GFR (MDRD) Non-Af 107, BUN/Creatinine Ratio 22.0 H, Glucose 83, Calcium 8.1 L, TSH 14.80 H Micro: Microbiology 07/11/21 21:28 Mucosa - Nasopharyngeal Respiratory Panel (PCR) - Final 07/11/21 16:52 Urine, Random Legionella Antigen - Final 07/11/21 16:52 Urine, Random Streptococcus pneumoniae Antigen (M - Final 07/11/21 17:25 Nasal Secretion SARS-CoV-2 Antigen (Rapid) - Final SARS-CoV-2 (COVID 19) Radiography Diagnostic Testing: Radiology Impression Chest X-Ray 07/11/21 18:20 IMPRESSION: Perihilar opacities bilaterally, right more than left. Cardiomegaly. Electronically Signed: Jacobo Lee DO at 19:02 EDT Tel [phone], Service support , Physical Exam Const alert Constitutional Narrative: Overweight older white female, sitting up in a chair with lunch tray in front of her but hardly touched, appears slightly uncomfortable and is complaining of left knee pain, oriented to location, self, year, and POTUS but was confused on the month until mid April Exam Limitations: no limitations Nutritional Appearance: overweight HEENT head/scalp atraumatic and moist oral mucous membranes HEENT Narrative: No thrush, Mallampati 2, fair dentition Head and Scalp: normocephalic Resp normal respiratory effort, no retractions, no use of accessory muscles and clear to auscultation bilaterally Auscultation: Negative for crackles, rales, rhonchi or wheezes Cardio regular rate, regular rhythm, S1 normal heart sound, S2 normal heart sound, no murmurs, no rub, no gallops, no clicks and no JVD GI normal to inspection, nondistended, normoactive bowel sounds, soft to palpation, non-tender and non-distended Extremity no clubbing, cyanosis or edema Extremity Narrative: Patient is holding left leg off the ground and some extension in the knee is mildly tender to touch but no erythema or effusion noted Peripheral Pulses: Yes pulses 2+ throughout Neuro CN's II-XII intact bilaterally, moves all extremities and no focal motor deficits Sensorium / Orientation: awake and alert Psych Psych Narrative: Patient seems depressed, affect slightly flat Assessment & Plan Assessment/Plan (1) Hyponatremia: (2) Metabolic encephalopathy: (3) Pneumonia due to COVID-19 virus: (4) Leukopenia: PLAN: Hyponatremia -Patient has not been eating well at home and currently has COVID-19 -Suspect is a consequence of the combination -We will continue IV fluids but just at 50 an hour as daughter is concerned about volume overload -Patient does have normal cardiac function at baseline at 60% on an echocardiogram from last year -Serum sodium has improved from 125-128 -Patient has had hyponatremia remotely in the past and was seen by nephrology (Dr. Bennett) at that time and it was felt that it was related to her vomiting and her taking spironolactone at that time -Repeat BMP in a.m. Metabolic encephalopathy -Suspect multifactorial(hyponatremia, COVID-19, fevers) -No focal deficit on exam -CT in the emergency department was normal -We will consider MRI at family request tomorrow if mentation has not changed although it seems that it has improved per documentation COVID-19 -Patient currently remains on room air -Discussed potential treatments with the daughter and she states that this time she would not want Decadron or remdesivir for her mom -I told the daughter that it is my responsibility to make recommendations and they make decisions based on these recommendations and we would not force her to take remdesivir or Decadron if she became hypoxic and would just offer them his treatments -Patient is currently a candidate for monoclonal antibodies and if she remains that at discharge I will make this referral if family is desiring this -Continue to monitor oxygen saturations -If clinically stable will plan for discharge tomorrow Leukopenia -Likely related to COVID-19 -Mild -Continue to monitor Hypothyroidism -Continue levothyroxine Hypertension -Continue home medications PAF -Continue diltiazem -Continue Coumadin -Per discussion with the daughter her INR has been 1.9 and she states that the physician has been happy with this number and therefore I will not change dosing at all at this time Recent left knee replacement -Surgically replaced on 06/14/2021 -Patient is experiencing some pain -Continue Tylenol Anxiety/depression -Continue home medication DVT prophylaxis -Patient is fully anticoagulated CODE STATUS -Full code Daughter updated on phone 07/12/2021. She is frustrated that she is not able to visit her mother at this time but due to restrictions secondary to Covid this is policy. She did state that she would rather just bring her home if we were going to do nothing for her. I did indicate that we still have her on some gentle hydration and are monitoring her clinically. Her sodium levels are improving and her p.o. intake has been poor. Her daughter did indicate that she would not like her mother to have remdesivir or Decadron if she became hypoxic. I told her that she would not have to have these medications but they would be offered. I did discuss with her that I am uncomfortable on discharging her tonight but if she remains stable would be willing to reevaluate that tomorrow and consider discharge as long as she was clinically stable at that time, but if she felt the need for her to come home today she would have to leave AGAINST MEDICAL ADVICE. Charges/Coding Visit Charges Inpatient E&M: 21283 Subs Hosp L2
[2021-07-12] MEDS: 0.9% Normal Saline 1,000 ML 50 ML IV (17:40)
[2021-07-13] VITALS (7 sets, daily range): BP systolic 125–142; BP diastolic 75–82; PULSE 69–80; RESP 16–18; TEMP 36.4–36.8; O2SAT 95–98
[2021-07-13] MEDS: Levothyroxine 125 MCG Tablet PO (06:02)
[2021-07-13 07:21] LABS: Absolute Lymphocyte Count 0.47 X10^3/uL (0.83-4.51); Absolute Neutrophil Count 1.7 X10^3/uL (2.0-7.7); Basophil# 0.01 X10^3/uL; Basophil% 0.4 % (0-1); Eosinophil# 0.02 X10^3/uL; Eosinophils% 0.8 % (0-5); Hematocrit 28.2 % (37-47); Hemoglobin 9.4 g/dL (12.0-15.0); Lymphocyte # 0.47 X10^3/ul (0.83-4.51); Lymphocyte % 19.3 % (19-41); Mean Corp Hgb Conc 33.3 g/dL (32-36); Mean Corpuscular Volume 93.1 fL (81-99); Mean Platelet Vol. 10.6 fl (6.2-12.0); Monocyte# 0.21 X10^3/uL; Monocyte% 8.6 % (0-10); NRBC Flagged by Analyzer 0 % (0-5); Neutrophil % 69.7 % (47-70); POSITIVE DIFFERENTIAL YES; Platelet Count 198 K/mm3 (150-450); RBC Distribution Width CV 16.2 % (11.6-14.6); RBC Distribution Width SD 55.6 fl (35.1-43.9); Red Blood Count 3.03 M/mm3 (4.2-5.4); White Blood Count 2.4 K/mm3 (4.4-11.0)
[2021-07-13 07:28] LABS: Differential Indicated SCAN CRITERIA MET
[2021-07-13 07:48] LABS: International Normalized Ratio 1.8; Prothrombin Time (Protime)PT. 19.7 SECONDS (11.7-14.9)
[2021-07-13 07:56] LABS: Anion Gap 8 (5-15); BUN 16 mg/dL (7-18); BUN/Creat Ratio 25.3 RATIO (10-20); Calcium,Total 8.1 mg/dL (8.5-10.1); Chloride 99 mmol/L (98-107); Creatinine, Serum 0.63 mg/dL (0.55-1.02); EST Glomerular Filtration Rate 99 mL/min (>60); Est Glom Filt Rate - Afr Amer 120 mL/min (>60); Estimated Creatinine Clearance 40.07 ml/min; Glucose 95 mg/dL (74-106); Potassium 3.6 mmol/L (3.5-5.1); Sodium Level 130 mmol/L (136-145)
[2021-07-13] MEDS: Calcium Carb/Vitamin D 1 TABLET Tablet PO (08:27)
[2021-07-13 08:28] LABS: Differential Comment SCANNED
[2021-07-13] MEDS: dilTIAZem CD 240 MG Capsule PO (08:28)
[2021-07-13] MEDS: FLUoxetine 20 MG Capsule PO (08:28)
[2021-07-13] MEDS: Losartan Potassium 50 MG Tablet PO (08:28)
[2021-07-13] MEDS: buPROPion 75 MG Tablet PO (08:28)
[2021-07-13] MEDS: Senna/Docusate Sodium 1 Tablet 2 TABLET PO (08:28)
--- NOTE | 2021-07-13 09:18 | PCM.DC.SUM ---
Providers Date of Admission: 07/11/21 Primary Care Physician: Dr. Sandra Lopez MD Reason For Visit: DEBILITY/COVID Diagnosis Discharge Diagnosis (1) Hyponatremia: Status: Resolved Code(s): E87.1 - Hypo-osmolality and hyponatremia (2) Metabolic encephalopathy: Status: Acute Code(s): G93.41 - Metabolic encephalopathy (3) Pneumonia due to COVID-19 virus: Status: Acute Code(s): U07.1 - COVID-19; J12.82 - Pneumonia due to coronavirus disease 2019 (4) Leukopenia: Status: Acute Code(s): D72.819 - Decreased white blood cell count, unspecified Medications at Discharge Home Medications fluoxetine 20 mg PO DAILY 08/16/17 atenolol 50 mg tablet 50 mg PO DAILY tab 04/30/19 warfarin 7.5 mg PO SUFRSA 12/23/19 atorvastatin 40 mg tablet 40 mg PO QHS 05/18/20 bupropion HCl 75 mg tablet 75 mg PO DAILY 05/18/20 levothyroxine 125 mcg tablet 125 mcg PO DAILY tab 05/18/20 losartan 50 mg tablet 50 mg PO BID tab 08/11/20 calcium carbonate-vitamin D3 1 each PO DAILY 01/25/21 diltiazem HCl 240 mg PO DAILY 01/25/21 warfarin 5 mg PO MOTUWETH 01/25/21 acetaminophen 1,000 mg PO Q8 #100 tab 06/15/21 ferrous sulfate [FeroSul] 325 mg PO BID #30 tab 06/15/21 folic acid 1 mg PO DAILY #14 tab 06/15/21 oxycodone 5 - 10 mg PO Q4H PRN PRN 5 Days #48 tab 06/15/21 sennosides-docusate sodium [Stool Softener-Stimulant Laxat] 2 tab PO BID #14 tab 06/15/21 food supplemt, lactose-reduced [Ensure Enlive] 120 ml PO 4X/DAY #0 ml 07/13/21 Hospital Course Operations None Procedures None Summary of Care Provided Minutes Spent on Discharge: 50 Hospital Course: Mrs. Barnes is a 70-year-old white female who presented to the emergency department at [facility] on 07/11/2021 with altered mental status. History on admission was obtained predominantly from her daughter. Her daughter reported that her mother had had increased confusion and fatigue in the last 3 days prior to presentation. The patient reported that her brain felt fuzzy and that she had chills, and a temperature of 100 degrees at home. The patient had been taking Tylenol regularly as she had a recent knee replacement and there was concern that she was possibly having fevers higher than that since she was on suppression. The daughter also reported an increase in her mom's cough and that initially it was a dry cough but has progressed to a slightly moist productive cough along with some increased nasal congestion. In the emergency department her oxygen saturations were stable on room air but she was found to have a temperature of 101. Her lab work showed leukopenia and hypokalemia with a sodium of 125. She was also found to have COVID-19. She was admitted to the medical surgical floor and given gentle hydration with normal saline and her sodium trended up slowly to 130 on the day of discharge. She has had a history of hyponatremia in the past which appeared to be related to the use of Aldactone and diarrhea that she was having at that time. I suspect this episode was related to some hypovolemia related to decreased p.o. intake and insensible losses with fevers related to her COVID-19 infection. Her daughter, who is very involved in her care, was updated on 07/12 and 07/13 with regards to the plan of care. Since the patient remains with normal oxygen saturations on room air monoclonal antibody infusion was discussed and a referral was made at the request of the family. I encouraged them to continue to monitor closely for oxygen saturation and they do have a pulse oximeter at home. I have instructed them to return if she experiences an oxygen saturation less than 92% on room air. Her INR during her admission was 1.9 and 1.8. Per discussion with the daughter she states that this is where they like to keep her INR typically. No adjustments were made in her Coumadin at this time. Given she was slightly subtherapeutic I did recommend a repeat INR on Saturday along with a repeat BMP to reassess her sodium. We have discussed the importance of good p.o. intake and fluid intake at home to avoid further hyponatremia. She is on Wellbutrin and fluoxetine for anxiety and depression and we did discuss that these can cause hyponatremia but I recommended further follow-up as she had been off these and experienced worsening depression in the past. She was instructed to remain in quarantine until 07/18/2021 and follow-up with her PCP following. We did offer home health care for physical therapy and Occupational Therapy for her knee since she will be unable to go to rehab in the next week and she and family deferred at this time. Discharge diagnoses: Acute hyponatremia Metabolic encephalopathy-resolved COVID-19 infection Leukopenia Hypothyroidism Hypertension PAF OA with recent left knee total arthroplasty Anxiety Depression Physical Exam Const alert, oriented x3 and no apparent distress Constitutional Narrative: Overweight older white female, sitting up in a chair, nursing at bedside, patient is much more alert and appropriately interactive today General Appearance: cooperative, comfortable, well kempt and well developed Orientation / Consciousness: awake, oriented to person and oriented to place Exam Limitations: no limitations Nutritional Appearance: overweight HEENT normocephalic, head/scalp atraumatic, hearing grossly normal bilaterally and moist oral mucous membranes Eyes PERRL, EOMs intact bilaterally, conjunctivae normal and no scleral icterus Neck no lymphadenopathy and supple Neck Narrative: Trachea midline, no thyroid enlargement General: trachea midline Resp normal respiratory effort, normal air movement, no retractions, no use of accessory muscles and clear to auscultation bilaterally Auscultation: Negative for crackles, rales, rhonchi or wheezes Cardio regular rate, regular rhythm, S1 normal heart sound, S2 normal heart sound, no murmurs, no rub, no gallops, no clicks, no JVD and peripheral pulses 2+ throughout GI normal to inspection, nondistended, normoactive bowel sounds, soft to palpation, non-tender and non-distended Extremity normal capillary refill and no clubbing, cyanosis or edema General Extremity: no tenderness to palpation of joints or extremities Skin no rashes or lesions noted, skin turgor normal and no jaundice General Skin Exam: no breakdown and turgor normal Lesions: no lesions Rashes: no rashes Neuro oriented x3, CN's II-XII intact bilaterally, moves all extremities, no focal motor deficits and no sensory deficits noted Neuro Narrative: Weakness in left lower extremity-this is a postoperative total knee Sensorium / Orientation: awake and alert Speech: speech normal Motor Exam: Negative for general weakness Psych cooperative and affect normal Appearance: appropriate Thought Process: confused Weight / BMI Weight Weight: 67.8 kg Body Mass Index (BMI) 28.4 ABG / Lab / Microbiology Data Result Diagrams: 07/13/21 06:36 07/13/21 06:36 Laboratory: Laboratory Results - last 24 hr 07/13/21 06:36: WBC 2.4 L, RBC 3.03 L, Hgb 9.4 L, Hct 28.2 L, MCV 93.1, MCH 31.0, MCHC 33.3, RDW Std Deviation 55.6 H, RDW Coeff of Aida 16.2 H, Plt Count 198, MPV 10.6, Immature Gran % (Auto) 1.200 H, Neut % (Auto) 69.7, Lymph % (Auto) 19.3, Jessamine % (Auto) 8.6, Eos % (Auto) 0.8, Baso % (Auto) 0.4, Absolute Neuts (auto) 1.7 L, Absolute Lymphs (auto) 0.47 L, Nucleated RBC % 0, Differential Comment SCANNED, Diff Path Review February07/13/21 06:36: PT 19.7 H, INR 1.8 07/13/21 06:36: Sodium 130 L, Potassium 3.6, Chloride 99, Carbon Dioxide 23.0, Anion Gap 8, BUN 16, Creatinine 0.63, Estim Creat Clear Calc 40.07, Est GFR (MDRD) Af Amer 120, Est GFR (MDRD) Non-Af 99, BUN/Creatinine Ratio 25.3 H, Glucose 95, Calcium 8.1 L Microbiology: Microbiology 07/11/21 21:28 Mucosa - Nasopharyngeal Respiratory Panel (PCR) - Final 07/11/21 16:52 Urine, Random Legionella Antigen - Final 07/11/21 16:52 Urine, Random Streptococcus pneumoniae Antigen (M - Final 07/11/21 17:25 Nasal Secretion SARS-CoV-2 Antigen (Rapid) - Final SARS-CoV-2 (COVID 19) D/C Instructions Discharge Diet: Low fat / Low cholesterol Discharge Activity: No Restrictions Meaningful Use Info Meaningful Use Diagnoses (Choose all that apply): None applicable Discharge Plan Admission Admit Date/Time: 07/11/21 19:47 Primary Reason for Your Visit: Hyponatremia/Metabolic Encephalopathy/Covid-19 Attending Provider: Niesha Jj Primary Care Provider: Sandra Lopez Instructions Additional Instructions / Restrictions: 1. Please check pulse ox a few times per day and come to the ED if <92% on RA 2. Please follow-up with outpatient lab to draw BMP to recheck sodium and INR on Saturday 3. Please quarantine for 10 days from onset of symptoms (-07/18/2021) 4. Referral for monoclonal antibody infusion was made and they will be calling you to set up and appt at the hospital for this if desired Discharge Orders/Prescriptions Prescriptions: New Ensure Enlive 0.08 gram-1.5 kcal/mL Liquid 120 ml PO 4X/DAY Qty: 0 RF: 0 Continued levothyroxine 125 mcg tablet 125 mcg PO DAILY RF: 0 bupropion HCl 75 mg tablet 75 mg PO DAILY RF: 0 fluoxetine 20 MG capsule 20 mg PO DAILY RF: 0 atorvastatin 40 mg tablet 40 mg PO QHS RF: 0 warfarin 2.5 MG tablet 7.5 mg PO SUFRSA RF: 0 calcium carbonate-vitamin D3 1 EACH capsule 1 each PO DAILY RF: 0 diltiazem HCl 240 MG capsule,extended release 24hr 240 mg PO DAILY RF: 0 warfarin 2.5 MG tablet 5 mg PO MOTUWETH RF: 0 acetaminophen 500 mg Tablet 1,000 mg PO Q8 Qty: 100 RF: 0 ferrous sulfate [FeroSul] 325 mg (65 mg iron) Tablet 325 mg PO BID Qty: 30 RF: 0 folic acid 1 mg Tablet 1 mg PO DAILY Qty: 14 RF: 0 oxycodone 5 mg Tablet 5 - 10 mg PO Q4H PRN PRN (Reason: Pain Score 4-10) 5 Days Qty: 48 RF: 0 sennosides-docusate sodium [Stool Softener-Stimulant Laxat] 8.6-50 mg Tablet 2 tab PO BID Qty: 14 RF: 0 atenolol 50 mg tablet 50 mg PO DAILY RF: 0 losartan 50 mg tablet 50 mg PO BID RF: 0 Discontinued acetaminophen 500 MG tablet 1,000 - 2,000 mg PO Q6H PRN PRN (Reason: Pain 1-10 Or Fever) RF: 0 Referrals / Follow Up: Sandra Lopez MD [Primary Care Provider] - Within 2 Weeks Disposition Disposition (needs filled in before D/C Order can be placed): Home, Self Care Charges/Coding Visit Charges Inpatient E&M: 08749 Disch Hosp
--- NOTE | 2021-07-13 09:24 | PCM.DC ---
Discharge Instructions Diet Discharge Diet: Low fat / Low cholesterol Follow Up Care Test Results: Test results from this visit will be discussed in further detail at your follow-up appointment, if applicable. Discharge Plan Admission Admit Date/Time: 07/11/21 19:47 Primary Reason for Your Visit: Hyponatremia/Metabolic Encephalopathy/Covid-19 Attending Provider: Niesha Jj Primary Care Provider: Sandra Lopez Instructions Additional Instructions / Restrictions: 1. Please check pulse ox a few times per day and come to the ED if <92% on RA 2. Home health to draw BMP to recheck sodium and INR on Saturday 3. Please quarantine for 10 days from onset of symptoms (-07/18/2021) 4. Referral for monoclonal antibody infusion was made and they will be calling you to set up and appt at the hospital for this if desired Discharge Orders/Prescriptions Prescriptions: New Ensure Enlive 0.08 gram-1.5 kcal/mL Liquid 120 ml PO 4X/DAY Qty: 0 RF: 0 Continued levothyroxine 125 mcg tablet 125 mcg PO DAILY RF: 0 bupropion HCl 75 mg tablet 75 mg PO DAILY RF: 0 fluoxetine 20 MG capsule 20 mg PO DAILY RF: 0 atorvastatin 40 mg tablet 40 mg PO QHS RF: 0 warfarin 2.5 MG tablet 7.5 mg PO SUFRSA RF: 0 acetaminophen 500 MG tablet 1,000 - 2,000 mg PO Q6H PRN PRN (Reason: Pain 1-10 Or Fever) RF: 0 calcium carbonate-vitamin D3 1 EACH capsule 1 each PO DAILY RF: 0 diltiazem HCl 240 MG capsule,extended release 24hr 240 mg PO DAILY RF: 0 warfarin 2.5 MG tablet 5 mg PO MOTUWETH RF: 0 acetaminophen 500 mg Tablet 1,000 mg PO Q8 Qty: 100 RF: 0 ferrous sulfate [FeroSul] 325 mg (65 mg iron) Tablet 325 mg PO BID Qty: 30 RF: 0 folic acid 1 mg Tablet 1 mg PO DAILY Qty: 14 RF: 0 oxycodone 5 mg Tablet 5 - 10 mg PO Q4H PRN PRN (Reason: Pain Score 4-10) 5 Days Qty: 48 RF: 0 sennosides-docusate sodium [Stool Softener-Stimulant Laxat] 8.6-50 mg Tablet 2 tab PO BID Qty: 14 RF: 0 atenolol 50 mg tablet 50 mg PO DAILY RF: 0 losartan 50 mg tablet 50 mg PO BID RF: 0 Referrals / Follow Up: Sandra Lopez MD [Primary Care Provider] - Within 2 Weeks Disposition Disposition (needs filled in before D/C Order can be placed): Home, Self Care
--- NOTE | 2021-07-13 09:51 | CASEMGMT ---
Per rounds with Dr. Jj, pt to be dc'd with lab orders. Plan for [facility] and will add SN. Dr. Jj requests this RN CM to contact pt dtr. TC to pt dtr. She states that she will be bringing her mother to her house in [place] for a short term. Made her aware that this CM could find an agency who will go to both [place] and [place]. Pt dtr states that she will be able to do therapy with the patient and then she will go back outpt the following week. TC to outpt lab to verify that pt can have her labs drawn although she is positive with COVID. Spoke with Jose Antonio Lofton who states as long as the patient has a mask on she will be allowed to get labs done. TC back to pt dtr to make aware. She took this RN CM phone number in case she has any issues tomorrow.
--- NOTE | 2021-07-13 10:36 | PHA.DC.MR ---
Pharmacy Service has performed discharge medication reconciliation for this patient. No new medications at time of discharge review. Medications reviewed are from previously reported home medications. Home Medications fluoxetine 20 mg PO DAILY 08/16/17 atenolol 50 mg tablet 50 mg PO DAILY tab 04/30/19 warfarin 7.5 mg PO SUFRSA 12/23/19 atorvastatin 40 mg tablet 40 mg PO QHS 05/18/20 bupropion HCl 75 mg tablet 75 mg PO DAILY 05/18/20 levothyroxine 125 mcg tablet 125 mcg PO DAILY tab 05/18/20 losartan 50 mg tablet 50 mg PO BID tab 08/11/20 calcium carbonate-vitamin D3 1 each PO DAILY 01/25/21 diltiazem HCl 240 mg PO DAILY 01/25/21 warfarin 5 mg PO MOTUWETH 01/25/21 acetaminophen 1,000 mg PO Q8 #100 tab 06/15/21 ferrous sulfate [FeroSul] 325 mg PO BID #30 tab 06/15/21 folic acid 1 mg PO DAILY #14 tab 06/15/21 oxycodone 5 - 10 mg PO Q4H PRN PRN 5 Days #48 tab 06/15/21 sennosides-docusate sodium [Stool Softener-Stimulant Laxat] 2 tab PO BID #14 tab 06/15/21 food supplemt, lactose-reduced [Ensure Enlive] 120 ml PO 4X/DAY #0 ml 07/13/21 The patient's discharge medication list was reviewed for discrepancies and discrepancies were resolved.
--- NOTE | 2021-07-13 11:13 | NURSING ---
talked with Dr. Jj regarding dc instructions and lab draws. was informed by case mgmt that patient is not going home with [facility]. informed by Dr. Jj that patient needs to follow up with PCP to have he BMP (Na) and INR ordered for saturday so that PCP can follow up with results. DC instructions and summary faxed to Dr. Lopez's office requesting these orders for labs be placed.
--- NOTE | 2021-07-13 11:29 | NURSING ---
phone call made to Dr. Lopez's office to make sure they recieved DC instructions/summary and Dr. Jj's request to order the BMP and INR for saturday draw time.
[2021-07-13 14:05] LABS: Pathologist Review Reviewed
--- NOTE | 2021-07-13 16:16 | NURSING ---
messageleft for nurse line for monoclonial antibodies at pt's daughter Ghazal Simeon's request. requesting they call her regarding followup instead of patient whom she states is not mentally back to baseline. left phone number for Ghazal as [phone]
[2021-07-14 13:30] LABS: Pathologist Review Reviewed
== END 2021-07-13 13:08 | disposition home or self-care (01) ==
LOC: ED 18:35 → MS3 20:18
PROVIDERS: Nurse Practitioner Family; Admitting Provider Internal Medicine; Emergency Provider Emergency Medicine; PCP Internal Medicine; Visit Provider Internal Medicine
DX: U07.1 COVID-19 (principal); J12.82 Pneumonia due to coronavirus disease 2019; E87.1 Hypo-osmolality and hyponatremia; G93.41 Metabolic encephalopathy; D72.819 Decreased white blood cell count, unspecified; I13.10 Hypertensive heart and chronic kidney disease without heart failure, with stage 1 through stage 4 chronic kidney disease, or unspecified chronic kidney disease; N18.9 Chronic kidney disease, unspecified; F41.9 Anxiety disorder, unspecified; I48.0 Paroxysmal atrial fibrillation; E78.00 Pure hypercholesterolemia, unspecified; G25.81 Restless legs syndrome; F32.9 Major depressive disorder, single episode, unspecified; E03.9 Hypothyroidism, unspecified; Z79.899 Other long term (current) drug therapy; Z79.01 Long term (current) use of anticoagulants; Z79.890 Hormone replacement therapy
CPT/HCPCS: 36415; 70450; 71045; 80048; 80053; 81001; 83605; 84295; 84443; 84484; 85025; 85610; 87040; 87426; 87449; 87633; 87635; 93005; 94762; 96360; 96361; 97162; 97166; 97535; 97802; 99218; 99251; 99285; J7030; U0005; G0378; G0463; U0003

== ENCOUNTER 2021-07-14 15:15 | Outpatient (CLI) | payer MEDICARE, OTHER, SELFPAY ==
[2021-07-14 15:18] VITALS: BP 115/51; PULSE 63; RESP 18; TEMP 36.5; O2SAT 97; BMI 28.3
[2021-07-14] MEDS: 0.9% Saline Lock 10 ML Syringe IV (15:25)
[2021-07-14 15:46] LABS: Absolute Lymphocyte Count 0.47 X10^3/uL (0.83-4.51); Absolute Neutrophil Count 2.2 X10^3/uL (2.0-7.7); Basophil# 0.01 X10^3/uL; Basophil% 0.3 % (0-1); Eosinophil# 0.14 X10^3/uL; Eosinophils% 4.5 % (0-5); Hematocrit 30.1 % (37-47); Hemoglobin 9.7 g/dL (12.0-15.0); Lymphocyte # 0.47 X10^3/ul (0.83-4.51); Lymphocyte % 15.1 % (19-41); Mean Corp Hgb Conc 32.2 g/dL (32-36); Mean Corpuscular Hgb 30.6 pg (27.0-32.0); Mean Platelet Vol. 10.7 fl (6.2-12.0); Monocyte# 0.29 X10^3/uL; Monocyte% 9.3 % (0-10); NRBC Flagged by Analyzer 0 % (0-5); Neutrophil # 2.15 X10^3/uL (2.7-7.7); Neutrophil % 68.9 % (47-70); POSITIVE DIFFERENTIAL YES; Platelet Count 236 K/mm3 (150-450); RBC Distribution Width CV 16.3 % (11.6-14.6); RBC Distribution Width SD 56.8 fl (35.1-43.9); Red Blood Count 3.17 M/mm3 (4.2-5.4); White Blood Count 3.1 K/mm3 (4.4-11.0)
[2021-07-14 15:56] LABS: Differential Indicated SCAN CRITERIA MET
[2021-07-14 16:07] LABS: Anion Gap 4 (5-15); BUN 19 mg/dL (7-18); BUN/Creat Ratio 30.4 RATIO (10-20); Calcium,Total 8.3 mg/dL (8.5-10.1); Chloride 102 mmol/L (98-107); Creatinine, Serum 0.62 mg/dL (0.55-1.02); EST Glomerular Filtration Rate 101 mL/min (>60); Est Glom Filt Rate - Afr Amer 122 mL/min (>60); Estimated Creatinine Clearance 40.07 ml/min; Glucose 107 mg/dL (74-106); Potassium 3.9 mmol/L (3.5-5.1); Sodium Level 133 mmol/L (136-145)
[2021-07-14 16:08] LABS: International Normalized Ratio 1.9; Prothrombin Time (Protime)PT. 21.3 SECONDS (11.7-14.9)
[2021-07-14 16:11] VITALS: BP 114/58; PULSE 58; RESP 16; TEMP 36.4; O2SAT 100
[2021-07-14 17:01] LABS: Anisocytosis 1+; Platelet Estimate ADEQUATE (ADEQ); Red Cell Morphology N CHROM NORMAL (NORM C&C)
[2021-07-14 17:10] VITALS: BP 126/69; PULSE 61; RESP 16; TEMP 36.4; O2SAT 98
[2021-07-17 14:43] LABS: Pathologist Review Reviewed
== END 2021-07-14 17:11 | disposition home or self-care (01) ==
LOC: MS3OUT 15:15 → MS3 15:16
PROVIDERS: PCP Internal Medicine; Referring Provider Nurse Practitioner Adult Health; Visit Provider Nurse Practitioner Adult Health
DX: Z23 Encounter for immunization (principal); U07.1 COVID-19; I48.0 Paroxysmal atrial fibrillation; Z79.01 Long term (current) use of anticoagulants
CPT/HCPCS: 80048; 85025; 85610; J7050; M0243; A4216; Q0244

== ENCOUNTER 2021-09-01 12:31 | Outpatient (RCR) | payer MEDICARE, OTHER, SELFPAY ==
[2021-07-13 18:25] VITALS: BMI 28.3
[2021-08-18 12:08] LABS: International Normalized Ratio 1.6; Prothrombin Time (Protime)PT. 18.7 SECONDS (11.7-14.9)
[2021-09-01 13:10] LABS: Hematocrit 34.7 % (37-47); Hemoglobin 10.7 g/dL (12.0-15.0); Mean Corp Hgb Conc 30.8 g/dL (32-36); Mean Corpuscular Hgb 27.6 pg (27.0-32.0); Mean Corpuscular Volume 89.4 fL (81-99); Mean Platelet Vol. 10.4 fl (6.2-12.0); Platelet Count 262 K/mm3 (150-450); RBC Distribution Width CV 16.2 % (11.6-14.6); RBC Distribution Width SD 53.8 fl (35.1-43.9); Red Blood Count 3.88 M/mm3 (4.2-5.4); White Blood Count 4.2 K/mm3 (4.4-11.0)
[2021-09-01 13:14] LABS: International Normalized Ratio 2.6
[2021-09-01 13:35] LABS: AST(SGOT) 19 U/L (15-37); Alanine Aminotransfer ALT/SGPT 22 U/L (13-56); Albumin, Serum 2.8 g/dL (3.2-5.0); Alkaline Phosphatase 84 U/L (45-117); Anion Gap 3 (5-15); BUN 28 mg/dL (7-18); BUN/Creat Ratio 26.4 RATIO (10-20); Bilirubin, Direct 0.11 mg/dL (0.00-0.30); Calcium,Total 9.2 mg/dL (8.5-10.1); Chloride 105 mmol/L (98-107); Cholesterol 154 mg/dL (200); Creatinine, Serum 1.06 mg/dL (0.55-1.02); EST Glomerular Filtration Rate 55 mL/min (>60); Est Glom Filt Rate - Afr Amer 66 mL/min (>60); Globulin 4.1 g/dL (2.2-4.2); Glucose 112 mg/dL (74-106); High Density Lipoprotein 65 mg/dL; Potassium 4.1 mmol/L (3.5-5.1); Protein, Total 6.9 g/dL (6.4-8.2); Sodium Level 138 mmol/L (136-145); Triglycerides 60 mg/dL; Very Low Density Lipoprotein 12 mg/dL (5-40)
== END 2021-09-12 18:00 | disposition home or self-care (01) ==
LOC: LAB 12:31
PROVIDERS: Family Provider Internal Medicine; PCP Internal Medicine; Referring Provider Internal Medicine Cardiovascular Disease; Visit Provider Internal Medicine Cardiovascular Disease
DX: I48.0 Paroxysmal atrial fibrillation (principal); Z79.01 Long term (current) use of anticoagulants; E78.00 Pure hypercholesterolemia, unspecified
CPT/HCPCS: 36415; 80048; 80061; 80076; 85027; 85610

== ENCOUNTER 2021-09-29 11:09 | Outpatient (RCR) | payer MEDICARE, OTHER, SELFPAY ==
[2021-09-13 01:57] VITALS: BMI 28.3
[2021-09-29 12:27] LABS: International Normalized Ratio 2.7; Prothrombin Time (Protime)PT. 27.8 SECONDS (11.7-14.9)
== END 2021-10-14 18:00 | disposition home or self-care (01) ==
LOC: LAB 11:09
PROVIDERS: Family Provider Internal Medicine; PCP Internal Medicine; Referring Provider Internal Medicine Cardiovascular Disease; Visit Provider Internal Medicine Cardiovascular Disease
DX: I48.0 Paroxysmal atrial fibrillation (principal); Z79.01 Long term (current) use of anticoagulants
CPT/HCPCS: 36415; 85610

== ENCOUNTER 2021-11-08 13:55 | Outpatient (CLI) | payer MEDICARE, OTHER, SELFPAY ==
--- NOTE | 2021-11-08 13:58 | ECHOD_ITS ---
Reason For Study: Murmur Procedure This was a 2D Doppler, Color Flow transthoracic echocardiogram. The exam was of adequate technical quality. Exam performed in department. Left Ventricle Normal LV size. Apical false tendon noted. Left ventricular systolic function is normal. The estimated ejection fraction is 60 %. No regional wall motion abnormalities noted. Right Ventricle Normal RV size. Normal systolic function. Atria The left atrium is severely enlarged. Normal right atrium. No doppler evidence for ASD. Mitral Valve There is no mitral annular calcification. Mild diffuse mitral valve thickening. The mitral valve chordae are thickened and/or calcified. Mitral valve doming/Hockey Sticking. Mild mitral valve stenosis. Moderately severe (3+) eccentric mitral valve insufficiency. Tricuspid Valve Normal tricuspid valve. Moderate (2+) eccentric tricuspid valve insufficiency. Right ventricular systolic pressure estimated to be 37 mmHg. Aortic Valve Trisinus/trileaflet aortic valve. Mild diffuse aortic valve thickening. Mild focal aortic valve calcification. Pulmonic Valve The pulmonic valve is not well visualized. Mild (1+) pulmonic valve insufficiency. Great Vessels Normal sized aortic root. Pericardium/Pleural No pericardial effusion. MMode/2D Measurements & Calculations LVIDd: 5.3 cm IVSd: 1.2 cm LVOT diam: 2.0 cm LVIDs: 3.5 cm LVPWd: 1.1 cm LVOT area: 3.2 cm2 RVDd: 2.9 cm FS: 34.4 % Ao root diam: 3.2 cm LAV(MOD-bp): 110.4 ml LVAd ap4: 27.8 cm2 LAV(MOD-bp) Indexed: 67.8 ml/m2 LVLd ap4: 6.8 cm LAV(MOD-sp2): 115.4 ml EDV(MOD-sp4): 94.2 ml LAV(MOD-sp4): 97.4 ml EDV(sp4-el): 96.7 ml LVAs ap4: 15.4 cm2 LVLs ap4: 5.4 cm ESV(MOD-sp4): 37.3 ml ESV(sp4-el): 37.3 ml EF(MOD-sp4): 60.4 % EF(sp4-el): 61.4 % SV(MOD-sp4): 56.9 ml SV(sp4-el): 59.3 ml LA A4 area: 28.0 cm2 LA dimension(2D): 5.4 cm RA A4 area: 14.8 cm2 Time Measurements MV dec time: 0.32 sec Doppler Measurements & Calculations MV E max ariel: 145.6 cm/sec Lat Peak E' Ariel: 5.8 cm/sec Med Peak E' Ariel: 3.7 cm/sec MV A max ariel: 96.5 cm/sec E/E' lat: 25.1 E/E' med: 38.9 MV E/A: 1.5 MV V2 max: 154.0 cm/sec MV P1/2t max ariel: 153.4 cm/sec Ao V2 max: 219.5 cm/sec MV max P.5 mmHg MV P1/2t: 91.8 msec Ao max P.3 mmHg MV V2 mean: 81.1 cm/sec Ao V2 mean: 150.3 cm/sec MV mean P.1 mmHg MV dec slope: 489.4 cm/sec2 Ao mean P.1 mmHg MV V2 VTI: 51.8 cm MVA(P1/2t): 2.4 cm2 Ao V2 VTI: 47.4 cm MVA(VTI): 1.9 cm2 ZEV(I,D): 2.0 cm2 ZEV(V,D): 2.0 cm2 LV V1 max: 138.3 cm/sec SV(LVOT): 96.4 ml PA V2 max: 116.5 cm/sec LV V1 max P.7 mmHg LV V1 mean P.5 mmHg LV V1 mean: 101.2 cm/sec LV V1 VTI: 30.0 cm TR max ariel: 292.3 cm/sec TR max P.2 mmHg ECHO/Echo Complete Interpretation Summary Left ventricular systolic function is normal. The estimated ejection fraction is 60 %. Apical false tendon noted. The left atrium is severely enlarged. Mild diffuse mitral valve thickening. The mitral valve chordae are thickened and/or calcified. Mitral valve doming/Hockey Sticking Mild mitral valve stenosis. Moderately severe (3+) eccentric mitral valve insufficiency. Moderate (2+) eccentric tricuspid valve insufficiency. Mild diffuse aortic valve thickening. Mild focal aortic valve calcification. Mild (1+) pulmonic valve insufficiency. Right ventricular systolic pressure estimated to be 37 mmHg. Transmitral diastolic flow velocities suggest diastolic dysfunction (pseudonorm al pattern). Ordering Physician: Sami Hinojosa Referring Physician: Sandra Lopez Performed By: Onelia Leonard RDCS, RVT
== END 2021-11-08 23:59 | disposition short-term general hospital (02) ==
LOC: CVS 13:56
PROVIDERS: PCP Internal Medicine; Referring Provider Internal Medicine Cardiovascular Disease; Visit Provider Internal Medicine Cardiovascular Disease
DX: R06.02 Shortness of breath (principal); R01.1 Cardiac murmur, unspecified; I10 Essential (primary) hypertension
CPT/HCPCS: 93306

== ENCOUNTER 2021-11-14 14:05 | Outpatient (RCR) | payer MEDICARE, OTHER, SELFPAY ==
[2021-10-15 03:34] VITALS: BMI 28.3
[2021-11-14 15:06] LABS: Basophil# 0.04 X10^3/uL; Basophil% 0.6 % (0-1); Eosinophil# 0.83 X10^3/uL; Eosinophils% 12.1 % (0-5); Hematocrit 35.8 % (37-47); Hemoglobin 11.6 g/dL (12.0-15.0); Lymphocyte % 16.1 % (19-41); Mean Corp Hgb Conc 32.4 g/dL (32-36); Mean Corpuscular Volume 86.3 fL (81-99); Mean Platelet Vol. 11.1 fl (6.2-12.0); Monocyte# 0.89 X10^3/uL; NRBC Flagged by Analyzer 0 % (0-5); Neutrophil # 3.95 X10^3/uL (2.7-7.7); Neutrophil % 57.8 % (47-70); Platelet Count 256 K/mm3 (150-450); RBC Distribution Width CV 17.2 % (11.6-14.6); RBC Distribution Width SD 54.4 fl (35.1-43.9); Red Blood Count 4.15 M/mm3 (4.2-5.4); White Blood Count 6.8 K/mm3 (4.4-11.0)
[2021-11-14 15:20] LABS: Protein, Urine (Random) 18.7 mg/dL (<11.9); Protein:Creat Ratio 193 mg/g CRE (0-200)
[2021-11-14 15:21] LABS: International Normalized Ratio 2.2; Prothrombin Time (Protime)PT. 23.2 SECONDS (11.7-14.9)
[2021-11-14 15:36] LABS: Albumin, Serum 3.1 g/dL (3.2-5.0); BUN 20 mg/dL (7-18); BUN/Creat Ratio 20.7 RATIO (10-20); Calcium,Total 9.6 mg/dL (8.5-10.1); Chloride 102 mmol/L (98-107); Creatinine, Serum 0.96 mg/dL (0.55-1.02); EST Glomerular Filtration Rate 61 mL/min (>60); Est Glom Filt Rate - Afr Amer 74 mL/min (>60); Glucose 96 mg/dL (74-106); Phosphorus 3.3 mg/dL (2.5-4.9); Potassium 4.3 mmol/L (3.5-5.1); Sodium Level 136 mmol/L (136-145)
== END 2021-11-14 18:00 | disposition home or self-care (01) ==
LOC: LAB 14:05
PROVIDERS: Family Provider Internal Medicine; PCP Internal Medicine; Referring Provider Internal Medicine Cardiovascular Disease; Visit Provider Internal Medicine Cardiovascular Disease
DX: I48.0 Paroxysmal atrial fibrillation (principal); Z79.01 Long term (current) use of anticoagulants
CPT/HCPCS: 36415; 80069; 82570; 84156; 85025; 85610

== ENCOUNTER 2021-11-15 15:56 | Emergency (ER) | payer MEDICARE, OTHER, SELFPAY ==
[2021-11-15 15:57] VITALS: BP 146/71; PULSE 59; RESP 16; TEMP 36.4; O2SAT 98; BMI 28.3
--- NOTE | 2021-11-15 16:12 | CT_ITS ---
STUDY: CT BRAIN WITHOUT CONTRAST REASON FOR EXAM: Female, 70 years old. FALL, ABRASION TO FOREHEAD AND NOSE, ON THINNERS RADIATION DOSAGE (If Supplied By Facility): CTDIvol = ( 44.99 ) mGy, DLP = ( 812.98 ) mGycm TECHNIQUE: Transaxial CT imaging of the brain was performed without administration of intravenous contrast material. Individualized dose optimization techniques were used for this CT. COMPARISON: 07/11/2021 FINDINGS: Localized soft tissue swelling of the anterior midline scalp. Normal calvarium. Normal size ventricles and extra-axial spaces for the patient''s age. Normal white matter tracts of the cerebral hemispheres. Normal basal ganglia and thalami. Normal brainstem. Normal cerebellum. There is no intracranial hemorrhage. There are no findings of an acute ischemic infarction. Normal visualized paranasal sinuses. CT/Brain/Head without Contrast IMPRESSION: Anterior midline scalp soft tissue swelling. No underlying fracture. No acute intracranial hemorrhage or mass effect. Electronically Signed: Reggie Ortiz MD (Brooks) at 16:48 EST Reading Location ID and State: [address] [place] [address] , Service support ,
--- NOTE | 2021-11-15 16:13 | ED.VIS.FALL ---
HPI HPI - Fall History of Present Illness Chief Complaint: Fall Detail of Chief Complaint: Fall with head injury that occurred about an hour and a half ago Informant: patient Narrative Narrative: Patient presents to the emergency department after sustaining a fall about an hour and a half ago. Patient states she went out to the mail box and when she came back she tripped over a small ledge on her porch causing her to fall forward and striking her head on the ground. No loss of consciousness. She denies any neck pain. She did sustain some abrasions to her nose and forehead. Patient unsure of her last tetanus and she does not want to have a tetanus shot. Patient denies any neck pain, chest pain, abdominal pain. Patient states that she debated coming in and did not want come in but she is on Coumadin for history of atrial fibrillation. [facility] Medical History (Updated 11/15/21 @ 17:[address] Pavel Urbina, DO) Ambulates with cane Anxiety Arthritis Back pain Cardiology follow-up encounter CKD (chronic kidney disease) Depression Dietary restriction Edema Essential hypertension History of atrial fibrillation History of cardioversion History of echocardiogram History of irregular heartbeat History of pain when walking HTN (hypertension) Hypertension Hypothyroidism Hypothyroidism assisted current use of anticoagulant Mitral valve insufficiency Non-rheumatic mitral regurgitation Non-rheumatic tricuspid valve insufficiency Non-smoker Paroxysmal atrial fibrillation Pneumonia due to COVID-19 virus Proteinuria Pure hypercholesterolemia Restless legs Shortness of breath on exertion SOB (shortness of breath) Thyroid disease Wears glasses Home Medications fluoxetine 20 mg PO DAILY 08/16/17 [History Last Taken 12/23/19] warfarin 7.5 mg PO SUFRSA 12/23/19 [History Last Taken 12/22/19] bupropion HCl 75 mg tablet 75 mg PO DAILY 05/18/20 [History Last Taken Unknown] losartan 50 mg tablet 50 mg PO BID tab 08/11/20 [History Last Taken Unknown] calcium carbonate-vitamin D3 1 each PO DAILY 01/25/21 [History Last Taken Unknown] diltiazem HCl 240 mg PO DAILY 01/25/21 [History Last Taken Unknown] warfarin 5 mg PO MOTUWETH 01/25/21 [History Last Taken Unknown] acetaminophen 500 mg tablet 1,000 mg PO Q8 PRN tab 10/25/21 [History Last Taken Unknown] atenolol 50 mg tablet 50 mg PO DAILY #90 tab 10/25/21 [Rx Last Taken Unknown] atorvastatin 40 mg tablet 40 mg PO QHS #90 tab 10/25/21 [Rx Last Taken Unknown] ferrous sulfate 325 mg (65 mg iron) tablet 325 mg PO DAILY tab 10/25/21 [History Last Taken Unknown] food supplemt, lactose-reduced 0.08 gram-1.5 kcal/mL oral liquid 120 ml PO 4X/DAY PRN ml 10/25/21 [History Last Taken Unknown] hydrochlorothiazide 25 mg tablet 25 mg PO DAILY #30 tab 10/25/21 [Rx Last Taken Unknown] levothyroxine 137 mcg tablet 137 mcg PO DAILY tab 10/25/21 [History Last Taken Unknown] Allergy/AdvReac Type Severity Reaction Status Date / Time lisinopril AdvReac Intermediate cough Verified 11/15/21 15:57 Penicillins [PCN] AdvReac Mild Other Verified 11/15/21 15:57 Family History Father Heart disease Surgical History History of carpal tunnel surgery History of dilatation and curettage History of hip replacement, total History of tubal ligation Status post total left knee replacement Social History Smoking Status: Never smoker alcohol intake: never substance use type: does not use caffeine: No ROS ROS ED Constitutional Constitutional ED: Reports systems reviewed and no addt'l complaints, except as documented; Denies body ache(s), change in weight or chills Eyes Eyes: Denies acute decrease in peripheral vision, change in vision, double vision or loss of vision ENT ENT ED: Reports none; Denies ear pain, lip swelling, loss taste/smell, neck pain, otalgia or sore throat Cardiovascular Cardiovascular: Reports none; Denies abdominal pain, chest pain with activity, leg edema, lightheadedness, palpitations, rapid heart rate or syncope Respiratory/Chest Respiratory/Chest: Reports none; Denies change in mental status, dry cough, dyspnea, hemoptysis, shortness of breath at rest or shortness of breath with exertion Gastrointestinal Gastrointestinal: Reports none; Denies abdominal pain, change in stool character, diarrhea, hematemesis, hematochezia, melena, rectal bleeding or vomiting Genitourinary Genitourinary ED: Reports none; Denies abdominal discomfort, anuria, dysuria, genital pain or polyuria Musculoskeletal Musculoskeletal: Reports none; Denies arthralgias, back pain, difficulty walking, extremity pain, muscle weakness or myalgias Integumentary Reports none, Abrasions and other; Denies abscess or rash Neurologic Neurologic: Reports none, headache(s) and other Details: Head injury ; Denies abnormal gait, confusion, focal weakness, frequent falls, loss of vision, numbness, paresthesias, radicular pain, vertigo or weakness Psychiatric Psychiatric: Reports systems reviewed and no addt'l complaints, except as documented and none; Denies behavioral changes, confusion, difficulty concentrating, hallucinations, suicidal ideation, tactile hallucinations or visual hallucinations Endocrine Endocrinology: Denies none, cold intolerance, excessive sweating, fatigue or heat intolerance Hematologic/Lymphatic Hematologic/Lymphatic: Reports none; Denies anemia, easy bleeding or easy bruising Allergic/Immunologic Allergic/Immunologic ED: Denies as per HPI, none, lip swelling, mouth swelling, throat swelling, tongue swelling or hives EXAM Physical Exam Const Vital Signs: 11/15/21 15:57 11/15/21 16:45 Temperature 97.6 F L Temperature Source Temporal Pulse Rate 59 L Respiratory Rate 16 Respiratory Effort Normal Respiratory Depth Normal Respiratory Pattern Normal Blood Pressure 146/71 H Blood Pressure Mean 96 Pulse Ox 98 Oxygen Delivery Method Room Air Room Air Positive well nourished and well developed General Appearance ED: well developed and NAD HEENT Reports TM's clear and moist mucous membranes HEENT Narrative: Patient has soft tissue swelling over the central forehead with superficial abrasions noted. Patient also with soft tissue swelling over the nose with superficial abrasions. No crepitus of the nasal bone noted. No septal hematomas noted. normocephalic; Negative for trauma or tenderness Tympanic Membrane ED: Yes TM's clear Eyes PERRL and EOMs intact bilaterally General Eye ED: Negative for pale conjunctiva or scleral icterus Neck no lymphadenopathy, supple and no JVD General: Negative for tenderness Chest Wall inspection of chest normal and palpation of chest normal Chest: Negative for tenderness Resp normal respiratory effort and clear to auscultation bilaterally Effort and Inspection: Negative for respiratory distress or pain with movement Auscultation: Negative for rhonchi, wheezes or diminished lung sounds Cardio regular rate, regular rhythm, S1 normal heart sound, S2 normal heart sound and no murmurs Peripheral Pulses: pulses 2+ throughout GI normal to inspection, nondistended, normoactive bowel sounds, soft to palpation, non-tender, non-distended and no masses Back/Spine no CVA tenderness and no thoracic nor lumbar tenderness Extremity normal to inspection General Extremety ED: Negative for edema General Extremity: Negative for edema Neuro oriented x3, CN's II-XII intact bilaterally, no sensory deficits noted and gait normal Sensorium / Orientation: awake, alert, oriented to person, oriented to place and oriented to time Motor Exam: strength 5/5 throughout and strength abnormal Psych mental status grossly normal Skin no rashes or lesions noted and no wounds MDM MDM MDM Narrative Medical decision making narrative: CT of the without contrast obtained was essentially unremarkable just showed some soft tissue swelling over the frontal forehead. At this point patient advised to return if severe headache, difficulty with balance or speech, or condition should worsen anyway. Patient clean dressing applied to the wound. Patient to follow-up with primary care physician in 3 to 5 days for wound checks. Radiography Diagnostic Testing: Clinical Impression(s) from Imaging Studies Brain CT 11/15/21 16:12 IMPRESSION: Anterior midline scalp soft tissue swelling. No underlying fracture. No acute intracranial hemorrhage or mass effect. Electronically Signed: Reggie Ortiz MD (Brooks) at 16:48 EST Reading Location ID and State: [address] [place] [address] , Service support , Discharge Plan Triage Chief Complaint: Fall ED Provider: Pavel Urbina Dx/Rx/DC Orders Clinical Impression: CHI (closed head injury), Fall Instructions: ED Mechanical Fall, ED Head Injury (Adult) Prescriptions: No Action bupropion HCl 75 mg tablet 75 mg PO DAILY RF: 0 levothyroxine 137 mcg tablet 137 mcg PO DAILY RF: 0 acetaminophen 500 mg tablet 1,000 mg PO Q8 PRNRF: 0 ferrous sulfate [FeroSul] 325 mg (65 mg iron) tablet 325 mg PO DAILY RF: 0 Ensure Enlive 0.08 gram-1.5 kcal/mL liquid 120 ml PO 4X/DAY PRNRF: 0 hydrochlorothiazide 25 mg tablet 25 mg PO DAILY Qty: 30 RF: 6 atenolol 50 mg tablet 50 mg PO DAILY Qty: 90 RF: 3 atorvastatin 40 mg tablet 40 mg PO QHS Qty: 90 RF: 3 fluoxetine 20 MG capsule 20 mg PO DAILY RF: 0 warfarin 2.5 MG tablet 7.5 mg PO SUFRSA RF: 0 calcium carbonate-vitamin D3 1 EACH capsule 1 each PO DAILY RF: 0 diltiazem HCl 240 MG capsule,extended release 24hr 240 mg PO DAILY RF: 0 warfarin 2.5 MG tablet 5 mg PO MOTUWETH RF: 0 losartan 50 mg tablet 50 mg PO BID RF: 0 Primary Care Provider: Sandra Lopez Referrals: Sandra Lopez MD [Primary Care Provider] - 3-5 Days Disposition Disposition: Home, Self Care
== END 2021-11-15 17:37 | disposition home or self-care (01) ==
PROVIDERS: Emergency Provider Emergency Medicine; PCP Internal Medicine; Visit Provider Emergency Medicine
DX: S09.90XA Unspecified injury of head, initial encounter (principal); M79.89 Other specified soft tissue disorders; E78.00 Pure hypercholesterolemia, unspecified; W19.XXXA Unspecified fall, initial encounter; N18.9 Chronic kidney disease, unspecified; I12.9 Hypertensive chronic kidney disease with stage 1 through stage 4 chronic kidney disease, or unspecified chronic kidney disease
CPT/HCPCS: 70450; 99282

== ENCOUNTER → 2022-05-08 | Outpatient (CLI) | payer MEDICARE, OTHER, SELFPAY ==
--- NOTE | 2022-05-08 13:20 | ECHOD_ITS ---
Reason For Study: PAROXUSMAL A FIB Procedure This was a 2D Doppler, Color Flow transthoracic echocardiogram. The exam was of adequate technical quality. Exam performed in department. Left Ventricle Normal LV size. Apical false tendon noted. Left ventricular systolic function is normal. The estimated ejection fraction is 60 %. No regional wall motion abnormalities noted. Right Ventricle Normal RV size. Normal systolic function. Atria The left atrium is severely enlarged. Normal right atrium. No doppler evidence for ASD. Mitral Valve There is no mitral annular calcification. Mild diffuse mitral valve thickening. The mitral valve chordae are thickened and/or calcified. Mitral valve doming/Hockey Sticking. Mild mitral valve stenosis. Moderate (2+) eccentric mitral valve insufficiency. Tricuspid Valve Normal tricuspid valve. Moderate (2+) eccentric tricuspid valve insufficiency. Right ventricular systolic pressure estimated to be 37 mmHg. Aortic Valve Trisinus/trileaflet aortic valve. Mild diffuse aortic valve thickening. Mild focal aortic valve calcification. Pulmonic Valve The pulmonic valve is not well visualized. Trivial pulmonic valve insufficiency. Great Vessels Normal sized aortic root. Pericardium/Pleural No pericardial effusion. MMode/2D Measurements & Calculations LVIDd: 5.0 cm IVSd: 1.3 cm Ao root diam: 2.8 cm LVIDs: 3.4 cm LVPWd: 1.1 cm RVDd: 3.3 cm FS: 32.4 % LAV(MOD-bp): 96.2 ml LA A4 area: 26.5 cm2 LA dimension(2D): 5.1 cm LAV(MOD-bp) Indexed: 59.1 ml/m2 LAV(MOD-sp2): 92.0 ml LAV(MOD-sp4): 91.5 ml RA A4 area: 14.5 cm2 Doppler Measurements & Calculations MV E max ariel: 109.6 cm/sec Lat Peak E' Ariel: 8.1 cm/sec Med Peak E' Ariel: 4.0 cm/sec MV A max ariel: 101.1 cm/sec E/E' lat: 13.6 E/E' med: 27.1 MV E/A: 1.1 MV V2 max: 112.3 cm/sec Ao V2 max: 189.1 cm/sec LV V1 max: 60.3 cm/sec MV max P.0 mmHg Ao max P.4 mmHg LV V1 max P.5 mmHg MV V2 mean: 62.2 cm/sec Ao V2 mean: 132.1 cm/sec LV V1 mean P.76 mmHg MV mean P.9 mmHg Ao mean P.0 mmHg LV V1 mean: 41.1 cm/sec MV V2 VTI: 45.7 cm Ao V2 VTI: 41.9 cm LV V1 VTI: 14.3 cm MR max ariel: 576.7 cm/sec PA V2 max: 132.3 cm/sec TR max ariel: 271.0 cm/sec MR max P.1 mmHg TR max P.4 mmHg MR mean ariel: 414.9 cm/sec MR mean P.6 mmHg MR VTI: 200.3 cm ECHO/Echo Complete Interpretation Summary Left ventricular systolic function is normal. The estimated ejection fraction is 60 %. Apical false tendon noted. The left atrium is severely enlarged. Mild diffuse mitral valve thickening. The mitral valve chordae are thickened and/or calcified. Mitral valve doming/Hockey Sticking Mild mitral valve stenosis. (based upon MV mean PG) Moderate (2+) eccentric mitral valve insufficiency. Moderate (2+) eccentric tricuspid valve insufficiency. Mild diffuse aortic valve thickening. Mild focal aortic valve calcification. Trivial pulmonic valve insufficiency. Normal sized aortic root. Right ventricular systolic pressure estimated to be 37 mmHg. Transmitral diastolic flow velocities suggest diastolic dysfunction (pseudonorm al pattern). Ordering Physician: Ashish^Sami^^^ Referring Physician: Sandra Lopez Performed By: Greer Sheridan, RDCS, RVT
== END | disposition home or self-care (01) ==
LOC: CVS 13:03
PROVIDERS: PCP Internal Medicine; Referring Provider Internal Medicine Cardiovascular Disease; Visit Provider Internal Medicine Cardiovascular Disease
DX: I48.0 Paroxysmal atrial fibrillation (principal)
CPT/HCPCS: 93306

== ENCOUNTER → 2022-05-18 | Outpatient (CLI) | payer MEDICARE, OTHER, SELFPAY ==
[2022-05-18 09:30] LABS: Absolute Lymphocyte Count 1.14 X10^3/uL (0.83-4.51); Absolute Neutrophil Count 4.2 X10^3/uL (2.0-7.7); Basophil# 0.03 X10^3/uL; Basophil% 0.5 % (0-1); Color, Urine Yellow (Yellow); Eosinophil# 0.29 X10^3/uL; Eosinophils% 4.7 % (0-5); Glucose, Dipstick Normal (Normal); Hematocrit 36.8 % (37-47); Hemoglobin 12.3 g/dL (12.0-15.0); Ketone-Dipstick Negative (Negative); Leukocyte Esterase-Dipstick Negative /ul (Negative); Lymphocyte # 1.14 X10^3/ul (0.83-4.51); Lymphocyte % 18.5 % (19-41); Mean Corp Hgb Conc 33.4 g/dL (32-36); Mean Corpuscular Hgb 32.1 pg (27.0-32.0); Mean Corpuscular Volume 96.1 fL (81-99); Mean Platelet Vol. 11.2 fl (6.2-12.0); Monocyte# 0.52 X10^3/uL; Monocyte% 8.5 % (0-10); NRBC Flagged by Analyzer 0 % (0-5); Neutrophil # 4.15 X10^3/uL (2.7-7.7); Neutrophil % 67.5 % (47-70); Nitrite-Dipstick Negative (Negative); Occult Blood-Urine Negative /ul (Negative); Platelet Count 192 K/mm3 (150-450); Protein-Dipstick 15 mg/dl (Negative); RBC Distribution Width CV 14.6 % (11.6-14.6); RBC Distribution Width SD 50.2 fl (35.1-43.9); Red Blood Count 3.83 M/mm3 (4.2-5.4); Specific Gravity, Urine 1.015 (1.002-1.030); Urine Bilirubin Dipstick Negative (Negative); Urine Clarity Clear (Clear); Urine Urobilinogen Normal (Normal); White Blood Count 6.2 K/mm3 (4.4-11.0)
[2022-05-18 09:41] LABS: Protein:Creat Ratio 105 mg/g CRE (0-200)
[2022-05-18 10:02] LABS: Albumin, Serum 3.5 g/dL (3.2-5.0); BUN 21 mg/dL (7-18); BUN/Creat Ratio 18.6 RATIO (10-20); Calcium,Total 9.3 mg/dL (8.5-10.1); Chloride 106 mmol/L (98-107); Creatinine, Serum 1.13 mg/dL (0.55-1.02); EST Glomerular Filtration Rate 51 mL/min (>60); Est Glom Filt Rate - Afr Amer 61 mL/min (>60); Glucose 107 mg/dL (74-106); Phosphorus 2.7 mg/dL (2.5-4.9); Potassium 4.1 mmol/L (3.5-5.1); Sodium Level 138 mmol/L (136-145)
== END | disposition home or self-care (01) ==
LOC: LAB 09:03
PROVIDERS: PCP Internal Medicine; Referring Provider Internal Medicine Nephrology; Visit Provider Internal Medicine Nephrology
DX: I12.9 Hypertensive chronic kidney disease with stage 1 through stage 4 chronic kidney disease, or unspecified chronic kidney disease (principal); N18.1 Chronic kidney disease, stage 1; R80.9 Proteinuria, unspecified
CPT/HCPCS: 36415; 80069; 81002; 82570; 84156; 85025

== ENCOUNTER → 2023-01-10 | Outpatient (CLI) | payer MEDICARE, OTHER, SELFPAY ==
[2023-01-10 11:25] LABS: Absolute Lymphocyte Count 1.18 X10^3/uL (0.83-4.51); Absolute Neutrophil Count 5.1 X10^3/uL (2.0-7.7); Basophil# 0.03 X10^3/uL; Basophil% 0.4 % (0-1); Eosinophil# 0.14 X10^3/uL; Hematocrit 37.3 % (37-47); Hemoglobin 12.6 g/dL (12.0-15.0); Lymphocyte # 1.18 X10^3/ul (0.83-4.51); Lymphocyte % 16.8 % (19-41); Mean Corp Hgb Conc 33.8 g/dL (32-36); Mean Corpuscular Hgb 33.2 pg (27.0-32.0); Mean Corpuscular Volume 98.4 fL (81-99); Mean Platelet Vol. 10.3 fl (6.2-12.0); Monocyte% 8.5 % (0-10); NRBC Flagged by Analyzer 0 % (0-5); Neutrophil # 5.05 X10^3/uL (2.7-7.7); Neutrophil % 71.9 % (47-70); Platelet Count 225 K/mm3 (150-450); RBC Distribution Width CV 14.6 % (11.6-14.6); RBC Distribution Width SD 52.2 fl (35.1-43.9); Red Blood Count 3.79 M/mm3 (4.2-5.4)
[2023-01-10 11:31] LABS: Protein, Urine (Random) 12.7 mg/dL (<11.9); Protein:Creat Ratio 97 mg/g CRE (0-200)
[2023-01-10 11:43] LABS: Albumin, Serum 3.5 g/dL (3.2-5.0); BUN 27 mg/dL (7-18); BUN/Creat Ratio 23.5 RATIO (10-20); Calcium,Total 9.5 mg/dL (8.5-10.1); Chloride 103 mmol/L (98-107); Creatinine, Serum 1.15 mg/dL (0.55-1.02); EST Glomerular Filtration Rate 49 mL/min (>60); Est Glom Filt Rate - Afr Amer 60 mL/min (>60); Glucose 91 mg/dL (74-106); Phosphorus 2.9 mg/dL (2.5-4.9); Potassium 3.9 mmol/L (3.5-5.1); Sodium Level 138 mmol/L (136-145)
[2023-01-10 22:19] LABS: Color, Urine Yellow (Yellow); Glucose, Dipstick Normal (Normal); Ketone-Dipstick Negative (Negative); Leukocyte Esterase-Dipstick Negative /ul (Negative); Nitrite-Dipstick Negative (Negative); Occult Blood-Urine Negative /ul (Negative); Protein-Dipstick 15 mg/dl (Negative); Specific Gravity, Urine 1.015 (1.002-1.030); Urine Bilirubin Dipstick Negative (Negative); Urine Clarity Clear (Clear); Urine Urobilinogen Normal (Normal); Urine pH 6.5 (5.0 - 8.0)
== END | disposition home or self-care (01) ==
PROVIDERS: PCP Internal Medicine; Referring Provider Internal Medicine Nephrology; Visit Provider Internal Medicine Nephrology
DX: R80.9 Proteinuria, unspecified (principal); I10 Essential (primary) hypertension
CPT/HCPCS: 36415; 80069; 81002; 82570; 84156; 85025

== ENCOUNTER → 2023-07-17 | Outpatient (CLI) | payer MEDICARE, OTHER, SELFPAY ==
[2023-07-17 14:59] LABS: Absolute Lymphocyte Count 1.26 X10^3/uL (0.83-4.51); Absolute Neutrophil Count 3.4 X10^3/uL (2.0-7.7); Basophil# 0.03 X10^3/uL; Basophil% 0.5 % (0-1); Eosinophil# 0.22 X10^3/uL; Eosinophils% 3.9 % (0-5); Hematocrit 35.4 % (37-47); Hemoglobin 11.7 g/dL (12.0-15.0); Lymphocyte # 1.26 X10^3/ul (0.83-4.51); Lymphocyte % 22.6 % (19-41); Mean Corp Hgb Conc 33.1 g/dL (32-36); Mean Corpuscular Hgb 30.9 pg (27.0-32.0); Mean Corpuscular Volume 93.4 fL (81-99); Monocyte# 0.66 X10^3/uL; Monocyte% 11.8 % (0-10); NRBC Flagged by Analyzer 0 % (0-5); Neutrophil # 3.38 X10^3/uL (2.7-7.7); Neutrophil % 60.7 % (47-70); Platelet Count 255 K/mm3 (150-450); RBC Distribution Width CV 14.6 % (11.6-14.6); RBC Distribution Width SD 49.3 fl (35.1-43.9); Red Blood Count 3.79 M/mm3 (4.2-5.4); White Blood Count 5.6 K/mm3 (4.4-11.0)
[2023-07-17 15:34] LABS: Albumin, Serum 3.5 g/dL (3.2-5.0); BUN 16 mg/dL (7-18); BUN/Creat Ratio 15.4 RATIO (10-20); Calcium,Total 9.4 mg/dL (8.5-10.1); Chloride 99 mmol/L (98-107); Creatinine, Serum 1.04 mg/dL (0.55-1.02); EST Glomerular Filtration Rate 55 mL/min (>60); Est Glom Filt Rate - Afr Amer 67 mL/min (>60); Glucose 95 mg/dL (74-106); Phosphorus 2.9 mg/dL (2.5-4.9); Potassium 4.2 mmol/L (3.5-5.1); Sodium Level 131 mmol/L (136-145)
[2023-07-17 16:01] LABS: Protein, Urine (Random) 10.7 mg/dL (<11.9); Protein:Creat Ratio 131 mg/g CRE (0-200)
== END | disposition home or self-care (01) ==
LOC: LAB 14:11
PROVIDERS: PCP Nurse Practitioner; Referring Provider Internal Medicine Nephrology; Visit Provider Internal Medicine Nephrology
DX: R80.9 Proteinuria, unspecified (principal); I10 Essential (primary) hypertension; E78.5 Hyperlipidemia, unspecified
CPT/HCPCS: 36415; 80069; 82570; 84156; 85025

== ENCOUNTER → 2024-01-15 | Outpatient (CLI) | payer MEDICARE, OTHER, SELFPAY ==
[2024-01-15 12:57] LABS: Absolute Neutrophil Count 3.7 X10^3/uL (2.0-7.7); Basophil# 0.03 X10^3/uL; Basophil% 0.5 % (0-1); Eosinophils% 3.6 % (0-5); Hematocrit 39.4 % (37-47); Hemoglobin 13.3 g/dL (12.0-15.0); Lymphocyte % 19.8 % (19-41); Mean Corp Hgb Conc 33.8 g/dL (32-36); Mean Corpuscular Hgb 31.8 pg (27.0-32.0); Mean Corpuscular Volume 94.3 fL (81-99); Mean Platelet Vol. 11.8 fl (6.2-12.0); Monocyte# 0.53 X10^3/uL; Monocyte% 9.5 % (0-10); NRBC Flagged by Analyzer 0 % (0-5); Neutrophil # 3.68 X10^3/uL (2.7-7.7); Neutrophil % 66.2 % (47-70); Platelet Count 229 K/mm3 (150-450); RBC Distribution Width CV 15.5 % (11.6-14.6); RBC Distribution Width SD 53.1 fl (35.1-43.9); Red Blood Count 4.18 M/mm3 (4.2-5.4); White Blood Count 5.6 K/mm3 (4.4-11.0)
[2024-01-15 13:30] LABS: Albumin, Serum 3.5 g/dL (3.2-5.0); BUN 17 mg/dL (7-18); BUN/Creat Ratio 15.2 RATIO (10-20); Calcium,Total 9.3 mg/dL (8.5-10.1); Chloride 100 mmol/L (98-107); Creatinine, Serum 1.12 mg/dL (0.55-1.02); EST Glomerular Filtration Rate 51 mL/min (>60); Est Glom Filt Rate - Afr Amer 62 mL/min (>60); Glucose 81 mg/dL (74-106); Phosphorus 3.8 mg/dL (2.5-4.9); Potassium 3.8 mmol/L (3.5-5.1); Sodium Level 134 mmol/L (136-145)
[2024-01-15 13:36] LABS: Color, Urine Yellow (Yellow); Glucose, Dipstick Normal (Normal); Ketone-Dipstick Negative (Negative); Leukocyte Esterase-Dipstick 25 /ul (Negative); Nitrite-Dipstick Negative (Negative); Occult Blood-Urine Negative /ul (Negative); Protein-Dipstick Negative (Negative); Specific Gravity, Urine 1.015 (1.002-1.030); Urine Bilirubin Dipstick Negative (Negative); Urine Clarity Clear (Clear); Urine Urobilinogen Normal (Normal)
== END | disposition home or self-care (01) ==
LOC: LAB 12:00
PROVIDERS: PCP Nurse Practitioner; Referring Provider Internal Medicine Nephrology; Visit Provider Internal Medicine Nephrology
DX: I10 Essential (primary) hypertension (principal); R80.9 Proteinuria, unspecified
CPT/HCPCS: 36415; 80069; 81002; 85025

== ENCOUNTER 2024-05-04 14:03 | Outpatient (RCR) | payer MEDICARE, OTHER, SELFPAY ==
[2024-05-04 15:49] LABS: International Normalized Ratio 3.1; Prothrombin Time (Protime)PT. 31.8 SECONDS (11.7-14.9)
== END 2024-05-13 18:00 | disposition home or self-care (01) ==
LOC: LAB 14:03
PROVIDERS: PCP Nurse Practitioner; Referring Provider Nurse Practitioner Family; Visit Provider Nurse Practitioner Family
DX: Z79.01 Long term (current) use of anticoagulants (principal); I48.0 Paroxysmal atrial fibrillation
CPT/HCPCS: 36415; 85610

== ENCOUNTER → 2024-05-07 | Outpatient (CLI) | payer MEDICARE, OTHER, SELFPAY ==
--- NOTE | 2024-05-07 09:27 | ECHOD_ITS ---
Reason For Study: EVALUATE MV DISEASE Procedure This was a 2D Doppler, Color Flow transthoracic echocardiogram. Exam performed in department. Left Ventricle Normal LV size. The estimated ejection fraction is 55 %. Unable to assess diastolic dysfunction. No regional wall motion abnormalities noted. Right Ventricle Normal RV size. Normal systolic function. Atria The left atrium is severely enlarged. The right atrium is mildly enlarged. No doppler evidence for ASD. Mitral Valve There is no mitral valve stenosis. Moderate (2+) mitral valve insufficiency. Tricuspid Valve There is no tricuspid stenosis. Moderate (2+) tricuspid valve insufficiency. Pulmonary artery systolic pressure is 40 mmHg. Aortic Valve Trisinus/trileaflet aortic valve. There is no aortic stenosis. No aortic valve insufficiency. Pulmonic Valve There is no pulmonic valvular stenosis. No pulmonic valve insufficiency. Pericardium/Pleural Trivial pericardial effusion. MMode/2D Measurements & Calculations LVIDd: 4.8 cm IVSd: 1.2 cm LVOT diam: 2.0 cm LVIDs: 4.5 cm LVPWd: 1.5 cm LVOT area: 3.3 cm2 RVDd: 3.2 cm FS: 6.8 % Ao root diam: 3.6 cm LAV(MOD-bp): 116.1 ml LVAd ap4: 25.1 cm2 LAV(MOD-bp) Indexed: 72.4 ml/m2 LVLd ap4: 6.4 cm LAV(MOD-sp2): 97.7 ml EDV(MOD-sp4): 82.2 ml LAV(MOD-sp4): 109.6 ml EDV(sp4-el): 83.7 ml LVAs ap4: 17.0 cm2 LVLs ap4: 5.6 cm ESV(MOD-sp4): 44.1 ml ESV(sp4-el): 44.2 ml EF(MOD-sp4): 46.3 % EF(sp4-el): 47.2 % SV(MOD-sp4): 38.1 ml SV(sp4-el): 39.5 ml LA A4 area: 31.5 cm2 LA dimension(2D): 5.3 cm RA A4 area: 22.3 cm2 TAPSE: 1.9 cm Doppler Measurements & Calculations MV E max riley: 137.7 cm/sec Ao V2 max: 139.4 cm/sec LV V1 max: 116.2 cm/sec Ao max P.8 mmHg LV V1 max P.4 mmHg Ao V2 mean: 98.9 cm/sec LV V1 mean P.0 mmHg Ao mean P.5 mmHg LV V1 mean: 80.5 cm/sec Ao V2 VTI: 25.5 cm LV V1 VTI: 18.0 cm AV (velocity ratio): 0.71 ZEV(I,D): 2.3 cm2 ZEV(V,D): 2.7 cm2 MR max riley: 576.9 cm/sec SV(LVOT): 59.1 ml PA V2 max: 80.9 cm/sec MR max P.1 mmHg PA V2 mean: 59.8 cm/sec MR mean riley: 440.3 cm/sec MR mean P.0 mmHg MR VTI: 183.5 cm TR max riley: 285.7 cm/sec TR max P.6 mmHg ECHO/Echo Complete Interpretation Summary The estimated ejection fraction is 55 %. Unable to assess diastolic dysfunction. The left atrium is severely enlarged. The right atrium is mildly enlarged. Moderate (2+) mitral valve insufficiency. Trivial pericardial effusion. Ordering Physician: Vikas Leonard Referring Physician: Vikas Leonard Performed By: Patricia Davies RCS
== END | disposition home or self-care (01) ==
LOC: CVS 09:25
PROVIDERS: PCP Internal Medicine; Referring Provider Nurse Practitioner Family; Visit Provider Nurse Practitioner Family
DX: I34.0 Nonrheumatic mitral (valve) insufficiency (principal)
CPT/HCPCS: 93306

== ENCOUNTER 2024-06-09 12:34 | Outpatient (RCR) | payer MEDICARE, OTHER, SELFPAY ==
[2024-06-03 12:27] LABS: Prothrombin Time (Protime)PT. 42.7 SECONDS (11.7-14.9)
[2024-06-03 12:32] LABS: International Normalized Ratio 4.6
[2024-06-09 13:52] LABS: International Normalized Ratio 3.1; Prothrombin Time (Protime)PT. 31.9 SECONDS (11.7-14.9)
== END 2024-06-09 18:00 | disposition home or self-care (01) ==
LOC: LAB 12:34
PROVIDERS: PCP Internal Medicine; Referring Provider Nurse Practitioner Family; Visit Provider Nurse Practitioner Family
DX: I48.0 Paroxysmal atrial fibrillation (principal); Z79.01 Long term (current) use of anticoagulants
CPT/HCPCS: 36415; 85610

== ENCOUNTER 2024-06-23 13:44 | Outpatient (RCR) | payer MEDICARE, OTHER, SELFPAY ==
[2024-06-23 15:04] LABS: International Normalized Ratio 2.5; Prothrombin Time (Protime)PT. 26.6 SECONDS (11.7-14.9)
== END 2024-06-23 18:00 | disposition home or self-care (01) ==
LOC: LAB 13:44
PROVIDERS: PCP Internal Medicine; Referring Provider Nurse Practitioner Family; Visit Provider Nurse Practitioner Family
DX: I48.0 Paroxysmal atrial fibrillation (principal); Z79.01 Long term (current) use of anticoagulants
CPT/HCPCS: 36415; 85610

== ENCOUNTER 2024-07-15 11:33 | Outpatient (RCR) | payer MEDICARE, OTHER, SELFPAY ==
[2024-07-15 12:24] LABS: International Normalized Ratio 2.6; Prothrombin Time (Protime)PT. 27.6 SECONDS (11.7-14.9)
== END 2024-07-15 18:00 | disposition home or self-care (01) ==
LOC: LAB 11:33
PROVIDERS: PCP Internal Medicine; Referring Provider Nurse Practitioner Family; Visit Provider Nurse Practitioner Family
DX: Z79.01 Long term (current) use of anticoagulants (principal); I48.0 Paroxysmal atrial fibrillation
CPT/HCPCS: 36415; 85610

== ENCOUNTER → 2024-07-30 | Outpatient (CLI) | payer MEDICARE, OTHER, SELFPAY ==
[2024-07-30 13:14] LABS: Color, Urine Yellow (Yellow); Glucose, Dipstick Normal (Normal); Ketone-Dipstick Negative (Negative); Leukocyte Esterase-Dipstick 25 /ul (Negative); Nitrite-Dipstick Negative (Negative); Occult Blood-Urine Negative /ul (Negative); Protein-Dipstick 30 mg/dl (Negative); Specific Gravity, Urine 1.015 (1.002-1.030); Urine Bilirubin Dipstick Negative (Negative); Urine Clarity Clear (Clear); Urine Urobilinogen 1 mg/dl (Normal)
[2024-07-30 13:22] LABS: Absolute Lymphocyte Count 0.92 X10^3/uL (0.83-4.51); Absolute Neutrophil Count 4.1 X10^3/uL (2.0-7.7); Basophil# 0.03 X10^3/uL; Basophil% 0.5 % (0-1); Eosinophil# 0.07 X10^3/uL; Eosinophils% 1.2 % (0-5); Hematocrit 41.8 % (37-47); Hemoglobin 13.1 g/dL (12.0-15.0); Lymphocyte # 0.92 X10^3/ul (0.83-4.51); Lymphocyte % 16.4 % (19-41); Mean Corp Hgb Conc 31.3 g/dL (32-36); Mean Corpuscular Hgb 27.9 pg (27.0-32.0); Mean Corpuscular Volume 88.9 fL (81-99); Mean Platelet Vol. 10.6 fl (6.2-12.0); Monocyte# 0.49 X10^3/uL; Monocyte% 8.7 % (0-10); NRBC Flagged by Analyzer 0 % (0-5); Neutrophil # 4.08 X10^3/uL (2.7-7.7); Neutrophil % 72.8 % (47-70); POSITIVE MORPHOLOGY YES; Platelet Count 223 K/mm3 (150-450); RBC Distribution Width CV 20.8 % (11.6-14.6); RBC Distribution Width SD 66.2 fl (35.1-43.9); White Blood Count 5.6 K/mm3 (4.4-11.0)
[2024-07-30 13:23] LABS: Differential Indicated SCAN CRITERIA MET
[2024-07-30 13:45] LABS: Albumin, Serum 3.3 g/dL (3.2-5.0); BUN 21 mg/dL (7-18); BUN/Creat Ratio 18.3 RATIO (10-20); Calcium,Total 9.6 mg/dL (8.5-10.1); Chloride 105 mmol/L (98-107); Creatinine, Serum 1.15 mg/dL (0.55-1.02); EST Glomerular Filtration Rate 49 mL/min (>60); Est Glom Filt Rate - Afr Amer 60 mL/min (>60); Glucose 101 mg/dL (74-106); Phosphorus 2.7 mg/dL (2.5-4.9); Potassium 4.7 mmol/L (3.5-5.1); Sodium Level 136 mmol/L (136-145)
[2024-07-30 14:03] LABS: Anisocytosis 1+
== END | disposition home or self-care (01) ==
LOC: LAB 12:03
PROVIDERS: PCP Internal Medicine; Referring Provider Internal Medicine Nephrology; Visit Provider Internal Medicine Nephrology
DX: R80.9 Proteinuria, unspecified (principal); E87.1 Hypo-osmolality and hyponatremia; E78.5 Hyperlipidemia, unspecified
CPT/HCPCS: 36415; 80069; 81002; 85025

== ENCOUNTER 2024-09-09 10:34 | Outpatient (RCR) | payer MEDICARE, OTHER, SELFPAY ==
[2024-08-17 09:56] LABS: International Normalized Ratio 1.5; Prothrombin Time (Protime)PT. 17.8 SECONDS (11.7-14.9)
[2024-08-28 11:22] LABS: International Normalized Ratio 1.6; Prothrombin Time (Protime)PT. 18.5 SECONDS (11.7-14.9)
[2024-09-04 12:13] LABS: International Normalized Ratio 1.6; Prothrombin Time (Protime)PT. 19.1 SECONDS (11.7-14.9)
[2024-09-09 11:10] LABS: International Normalized Ratio 2.5; Prothrombin Time (Protime)PT. 27.1 SECONDS (11.7-14.9)
== END 2024-09-12 18:00 | disposition home or self-care (01) ==
LOC: LAB 10:34
PROVIDERS: PCP Internal Medicine; Referring Provider Nurse Practitioner Family; Visit Provider Nurse Practitioner Family
DX: Z79.01 Long term (current) use of anticoagulants (principal); I48.0 Paroxysmal atrial fibrillation
CPT/HCPCS: 36415; 85610

== ENCOUNTER 2024-09-21 14:52 | Outpatient (RCR) | payer MEDICARE, OTHER, SELFPAY ==
[2024-09-21 15:47] LABS: International Normalized Ratio 2.9; Prothrombin Time (Protime)PT. 30.3 SECONDS (11.7-14.9)
== END 2024-09-21 18:00 | disposition home or self-care (01) ==
LOC: LAB 14:52
PROVIDERS: PCP Internal Medicine; Referring Provider Nurse Practitioner Family; Visit Provider Nurse Practitioner Family
DX: Z79.01 Long term (current) use of anticoagulants (principal); I48.0 Paroxysmal atrial fibrillation
CPT/HCPCS: 36415; 85610

== ENCOUNTER 2024-11-09 12:12 | Outpatient (RCR) | payer MEDICARE, OTHER, SELFPAY ==
[2024-10-20 11:58] LABS: International Normalized Ratio 3.4; Prothrombin Time (Protime)PT. 34.9 SECONDS (11.7-14.9)
[2024-10-26 12:01] LABS: Prothrombin Time (Protime)PT. 32.1 SECONDS (11.7-14.9)
[2024-11-09 13:05] LABS: International Normalized Ratio 2.8
== END 2024-11-09 18:00 | disposition home or self-care (01) ==
LOC: LAB 12:12
PROVIDERS: PCP Internal Medicine; Referring Provider Nurse Practitioner Family; Visit Provider Nurse Practitioner Family
DX: Z79.01 Long term (current) use of anticoagulants (principal); I48.0 Paroxysmal atrial fibrillation
CPT/HCPCS: 36415; 85610

== ENCOUNTER 2024-12-01 13:05 | Outpatient (RCR) | payer MEDICARE, OTHER, SELFPAY ==
[2024-12-01 13:39] LABS: International Normalized Ratio 2.8; Prothrombin Time (Protime)PT. 29.8 SECONDS (11.7-14.9)
== END 2024-12-11 18:00 | disposition home or self-care (01) ==
LOC: LAB 13:05
PROVIDERS: PCP Internal Medicine; Referring Provider Nurse Practitioner Family; Visit Provider Nurse Practitioner Family
DX: Z79.01 Long term (current) use of anticoagulants (principal); I48.0 Paroxysmal atrial fibrillation
CPT/HCPCS: 36415; 85610

== ENCOUNTER 2024-12-31 09:24 | Outpatient (RCR) | payer MEDICARE, OTHER, SELFPAY ==
[2024-12-31 10:44] LABS: International Normalized Ratio 2.5; Prothrombin Time (Protime)PT. 27.7 SECONDS (11.7-14.9)
== END 2024-12-31 18:00 | disposition home or self-care (01) ==
LOC: LAB 09:24
PROVIDERS: PCP Internal Medicine; Referring Provider Nurse Practitioner Family; Visit Provider Nurse Practitioner Family
DX: I48.0 Paroxysmal atrial fibrillation (principal); Z79.01 Long term (current) use of anticoagulants
CPT/HCPCS: 36415; 85610

== ENCOUNTER 2025-02-04 12:04 | Outpatient (RCR) | payer MEDICARE, OTHER, SELFPAY ==
[2025-02-04 12:30] LABS: International Normalized Ratio 2.8; Prothrombin Time (Protime)PT. 29.9 SECONDS (11.7-14.9)
== END 2025-02-10 18:00 | disposition home or self-care (01) ==
LOC: LAB 12:04
PROVIDERS: PCP Internal Medicine; Referring Provider Nurse Practitioner Family; Visit Provider Nurse Practitioner Family
DX: I48.0 Paroxysmal atrial fibrillation (principal); Z79.01 Long term (current) use of anticoagulants
CPT/HCPCS: 36415; 85610

== ENCOUNTER 2025-03-05 11:21 | Outpatient (RCR) | payer MEDICARE, OTHER, SELFPAY ==
[2025-03-05 12:40] LABS: International Normalized Ratio 2.5; Prothrombin Time (Protime)PT. 27.2 SECONDS (11.7-14.9)
== END 2025-03-05 18:00 | disposition home or self-care (01) ==
LOC: LAB 11:21
PROVIDERS: PCP Internal Medicine; Referring Provider Nurse Practitioner Family; Visit Provider Nurse Practitioner Family
DX: I48.0 Paroxysmal atrial fibrillation (principal); Z79.01 Long term (current) use of anticoagulants
CPT/HCPCS: 36415; 85610

== ENCOUNTER 2025-04-08 10:47 | Outpatient (RCR) | payer MEDICARE, OTHER, SELFPAY ==
[2025-04-08 11:24] LABS: International Normalized Ratio 4.1; Prothrombin Time (Protime)PT. 40.4 SECONDS (11.7-14.9)
== END 2025-04-08 18:00 | disposition home or self-care (01) ==
LOC: LAB 10:47
PROVIDERS: PCP Internal Medicine; Referring Provider Nurse Practitioner Family; Visit Provider Nurse Practitioner Family
DX: Z79.01 Long term (current) use of anticoagulants (principal); I48.0 Paroxysmal atrial fibrillation
CPT/HCPCS: 36415; 85610

== ENCOUNTER → 2025-04-15 | Outpatient (CLI) | payer MEDICARE, OTHER, SELFPAY ==
[2025-04-15 12:48] LABS: Prothrombin Time (Protime)PT. 33.9 SECONDS (11.7-14.9)
== END | disposition home or self-care (01) ==
LOC: LAB 11:23
PROVIDERS: PCP Internal Medicine; Referring Provider Internal Medicine Cardiovascular Disease; Visit Provider Internal Medicine Cardiovascular Disease
DX: Z79.01 Long term (current) use of anticoagulants (principal)
CPT/HCPCS: 36415; 85610

== ENCOUNTER 2025-04-23 10:34 | Outpatient (RCR) | payer MEDICARE, OTHER, SELFPAY ==
[2025-04-23 11:15] LABS: Prothrombin Time (Protime)PT. 30.4 SECONDS (11.7-14.9)
== END 2025-05-13 20:46 | disposition home or self-care (01) ==
LOC: LAB 10:34
PROVIDERS: PCP Internal Medicine; Referring Provider Nurse Practitioner Family; Visit Provider Nurse Practitioner Family
DX: Z79.01 Long term (current) use of anticoagulants (principal)
CPT/HCPCS: 36415; 85610

== ENCOUNTER 2025-05-14 10:17 | Outpatient (RCR) | payer MEDICARE, OTHER, SELFPAY ==
[2025-05-14 11:45] LABS: Prothrombin Time (Protime)PT. 24.7 SECONDS (11.7-14.9)
[2025-06-09 13:38] LABS: Hematocrit 42.4 % (37-47); Hemoglobin 14.3 g/dL (12.0-15.0); Immature Granulocytes Count 0.030 X10^3/uL (0.0-0.0); Mean Corp Hgb Conc 33.7 g/dL (32-36); Mean Corpuscular Volume 97.2 fL (81-99); Mean Platelet Vol. 11.2 fl (6.2-12.0); NRBC Flagged by Analyzer 0 % (0-5); Platelet Count 192 K/mm3 (150-450); RBC Distribution Width CV 16.6 % (11.6-14.6); RBC Distribution Width SD 58.8 fl (35.1-43.9); Red Blood Count 4.36 M/mm3 (4.2-5.4); White Blood Count 6.4 K/mm3 (4.4-11.0)
[2025-06-09 13:49] LABS: Prothrombin Time (Protime)PT. 22.1 SECONDS (11.7-14.9)
[2025-06-09 14:41] LABS: AST(SGOT) 35 U/L (<=31); Alanine Aminotransfer ALT/SGPT 50 U/L (<=34); Albumin, Serum 3.9 g/dL (3.4-4.8); Alkaline Phosphatase 77 U/L (35-104); Anion Gap 10 (5-15); BUN 19 mg/dL (4-19); BUN/Creat Ratio 19.4 RATIO (10-20); Calcium,Total 9.5 mg/dL (7.6-11.0); Carbon Dioxide 25.5 mmol/L (21.0-32.0); Chloride 103 mmol/L (98-108); Globulin 2.7 g/dL (2.2-4.2); Glucose 89 mg/dL (70-99); Potassium 4.3 mmol/L (3.3-5.1)
== END 2025-05-14 18:00 | disposition home or self-care (01) ==
LOC: LAB 10:17
PROVIDERS: PCP Internal Medicine; Referring Provider Nurse Practitioner Family; Visit Provider Nurse Practitioner Family
DX: Z79.01 Long term (current) use of anticoagulants (principal); I10 Essential (primary) hypertension
CPT/HCPCS: 36415; 80053; 84443; 85025; 85610

== ENCOUNTER 2025-07-02 10:44 | Outpatient (RCR) | payer MEDICARE, OTHER, SELFPAY ==
[2025-07-02 11:35] LABS: Prothrombin Time (Protime)PT. 26.4 SECONDS (11.7-14.9)
== END 2025-07-13 18:00 | disposition home or self-care (01) ==
LOC: LAB 10:44
PROVIDERS: PCP Internal Medicine; Referring Provider Nurse Practitioner Family; Visit Provider Nurse Practitioner Family
DX: Z79.01 Long term (current) use of anticoagulants (principal)
CPT/HCPCS: 36415; 85610

== ENCOUNTER 2025-07-27 10:14 | Outpatient (RCR) | payer MEDICARE, OTHER, SELFPAY ==
[2025-07-27 10:58] LABS: Hematocrit 42.3 % (37-47); Hemoglobin 14.5 g/dL (12.0-15.0); Immature Granulocytes Count 0.020 X10^3/uL (0.0-0.0); Mean Corp Hgb Conc 34.3 g/dL (32-36); Mean Corpuscular Volume 97.7 fL (81-99); Mean Platelet Vol. 11.1 fl (6.2-12.0); NRBC Flagged by Analyzer 0 % (0-5); Platelet Count 171 K/mm3 (150-450); RBC Distribution Width CV 16.3 % (11.6-14.6); RBC Distribution Width SD 58.2 fl (35.1-43.9); Red Blood Count 4.33 M/mm3 (4.2-5.4); White Blood Count 5.0 K/mm3 (4.4-11.0)
[2025-07-27 11:03] LABS: Color, Urine Yellow (Yellow); Glucose, Dipstick Normal (Normal); Ketone-Dipstick Negative (Negative); Leukocyte Esterase-Dipstick 100 /ul (Negative); Nitrite-Dipstick Negative (Negative); Occult Blood-Urine Negative /ul (Negative); Protein-Dipstick 30 mg/dl (Negative); Specific Gravity, Urine 1.015 (1.002-1.030); Urine Bilirubin Dipstick Negative (Negative)
[2025-07-27 11:24] LABS: Creatinine, Urine (random) 116.00 mg/dL (28.00-217.00); Protein, Urine (Random) 16.9 mg/dL (0.0-12.0); Protein:Creat Ratio 146 mg/g CRE (0-200)
[2025-07-27 12:00] LABS: Albumin, Serum 3.8 g/dL (3.4-4.8); Anion Gap 8 (5-15); BUN 18 mg/dL (4-19); BUN/Creat Ratio 16.4 RATIO (10-20); Calcium,Total 9.6 mg/dL (7.6-11.0); Carbon Dioxide 27.7 mmol/L (21.0-32.0); Chloride 105 mmol/L (98-108); Glucose 98 mg/dL (70-99); Potassium 4.2 mmol/L (3.3-5.1)
[2025-07-27 12:12] LABS: Prothrombin Time (Protime)PT. 32.0 SECONDS (11.7-14.9)
== END 2025-07-27 18:00 | disposition home or self-care (01) ==
LOC: LAB 10:14
PROVIDERS: Internal Medicine Nephrology; PCP Internal Medicine; Referring Provider Nurse Practitioner Family; Visit Provider Nurse Practitioner Family
DX: R80.9 Proteinuria, unspecified (principal); E87.1 Hypo-osmolality and hyponatremia; I10 Essential (primary) hypertension; Z79.01 Long term (current) use of anticoagulants; I48.0 Paroxysmal atrial fibrillation
CPT/HCPCS: 36415; 80069; 81002; 82570; 84156; 85025; 85610; 87086; 87088

== ENCOUNTER 2025-09-29 14:00 | Outpatient (RCR) | payer MEDICARE, OTHER, SELFPAY ==
[2025-09-17 10:29] LABS: Prothrombin Time (Protime)PT. 33.2 SECONDS (11.7-14.9)
[2025-09-29 14:59] LABS: Prothrombin Time (Protime)PT. 29.8 SECONDS (11.7-14.9)
== END 2025-09-29 18:00 | disposition home or self-care (01) ==
LOC: LAB 14:00
PROVIDERS: PCP Internal Medicine; Referring Provider Nurse Practitioner Family; Visit Provider Nurse Practitioner Family
DX: Z79.01 Long term (current) use of anticoagulants; I48.0 Paroxysmal atrial fibrillation
CPT/HCPCS: 36415; 85610